=== PATIENT | male | born 1930 | race Caucasian/White ===

== ENCOUNTER 2016-09-01 06:06 | Day surgery (SDC) | payer MEDICARE, BC ==
[2016-09-01] VITALS (25 sets, daily range): BP systolic 104–143; BP diastolic 61–76; PULSE 68–90; RESP 15–23; Ht 170.2 cm; Wt 83.6 kg
[~2016-09-01] VITALS: Ht 170.2 cm; Wt 83.6 kg
[~2016-09-01 06:06] MED LIST: ALLO300T2 PO; AMIO100T4 PO; ASPI81TA3 PO; ATOR20TA38 PO; CLON-379 PO; CLOP75TA27 PO; ISOS30TA5 PO; LIDOCAINE 1% (MPF) 30 ML INJ INJ ONE; METO25TA7 PO; NEPH PO; PRIM50TA38 PO
[2016-09-01] MEDS ORDERED: BEN25 PO (07:05)
[2016-09-01] MEDS ORDERED: FURO40TA4 PO (07:05)
[2016-09-01] MEDS ORDERED: TRAM50TA2 PO (07:05)
[2016-09-01] MEDS ORDERED: LIDOCAINE 1% (MPF) 30 ML INJ ONE (07:45)
[2016-09-01] MEDS ORDERED: HEPARIN 1000 UNITS/ML 10 ML INJ ONE (07:45)
[2016-09-01] MEDS ORDERED: GELATIN SIZE 100 SPONGE ONE (07:45)
[2016-09-01] MEDS ORDERED: THROMBIN 5000 UNIT VIAL ONE (07:46)
--- NOTE | 2016-09-01 07:51 | HPN ---
Date/Time of Note Date/Time of Note DATE: 09/01/16 TIME: 07:51 Interval H&P Admission Note Pt. seen H&P reviewed: No system changes TERRANCE FLYNN MD Sep 01, 2016 07:51
[2016-09-01] MEDS ORDERED: PROPOFOL 20 ML ONE (07:56)
[2016-09-01] MEDS ORDERED: LIDOCAINE 2% (SDV) 5 ML INJ ONE (07:56)
[2016-09-01] MEDS ORDERED: VANCOMYCIN 1 GM (PMX) 250 ML IVPB SCH (08:00)
[2016-09-01] MEDS ORDERED: DIPHENHYDRAMINE 50 MG INJ IV PRN (08:30)
[2016-09-01] MEDS ORDERED: MEPERIDINE 25 MG INJ IV PRN (08:30)
[2016-09-01] MEDS ORDERED: MIDAZOLAM 1 MG/ML 2 ML INJ IV PRN (08:30)
[2016-09-01] MEDS ORDERED: HYDROmorphONE (0.2 MG/ML) 10ML SYG IV PRN ×2 (08:30)
[2016-09-01] MEDS ORDERED: METOCLOPRAMIDE 10 MG INJ IV PRN (08:30)
[2016-09-01] MEDS ORDERED: FENTAnyl 50 MCG/ML VIAL IV PRN ×2 (08:30)
[2016-09-01] MEDS ORDERED: ONDANSETRON 4 MG INJ IV PRN (08:30)
[2016-09-01] MEDS ORDERED: EPHEDrine SULFATE 50 MG/5 ML SYG ONE (08:56)
[2016-09-01] MEDS ORDERED: ROCURONIUM 50 MG INJ ONE (08:56)
[2016-09-01] MEDS ORDERED: THROMBIN 5000 UNIT VIAL TOP ONE (09:02)
[2016-09-01] MEDS ORDERED: GELATIN SIZE 100 SPONGE TOP ONE (09:02)
[2016-09-01] MEDS ORDERED: GLYCOPYRROLATE 0.4 MG INJ ONE (09:53)
[2016-09-01] MEDS ORDERED: NEOSTIGMINE 3 MG/3 ML SYRINGE ONE (09:53)
--- NOTE | 2016-09-01 10:08 | OPR ---
Date/Time of Note Date/Time of Note DATE: 09/01/16 TIME: 10:07 Operative Report Preoperative Diagnosis thrombosed left arm AVF Postoperative Diagnosis same Operation Performed revision / thrombectomy left arm AVF Surgeon: TERRANCE FLYNN MD Anesthesia: general Estimated Blood Loss: 50 - 100 ml's Complications: None Pt Condition Post Procedure: stable Disposition: PACU TERRANCE FLYNN MD Sep 01, 2016 10:08
--- NOTE | 2016-09-01 10:59 | OPR ---
DATE OF OPERATION: 09/01/2016 PREOPERATIVE DIAGNOSIS: Thrombosed left arm arteriovenous fistula. POSTOPERATIVE DIAGNOSIS: Thrombosed left arm arteriovenous fistula. PROCEDURE PERFORMED: Revision and thrombectomy of left arm AV fistula. SURGEON: Terrance Slater MD ANESTHESIA: LMA. ESTIMATED BLOOD LOSS: 50 mL. COMPLICATIONS: There are no intraprocedural complications. INDICATIONS: This is an 86-year-old man who has been on dialysis for several years. He had multipl e failed accesses in both arms and most recently had placed a left brachiocephalic AV fistula about a year ago. He had been working well until several weeks ago and started having problems with that and then it was very low flow. I brought him and did a fistulogram and showed that the cephalic vei n was opened from the elbow to the mid-upper arm and then it occluded, but reconstituted in the uppe r arm, there was a collateral coming off of the vein that was keeping the more distal portion open a nd that was coming back up and filling the very proximal cephalic vein. The mid portion of the vei n was completely thrombosed. I tried to pass catheters and wires through it, but I could not get th rough, it was very densely occluded and could not be reopened. So I brought him in today to revise the fistula. He has had multiple accesses in this arm previously. He has had brachiobasilic fistul a, graft and the brachiocephalic AV fistula was actually a third access. DESCRIPTION OF PROCEDURE: Patient brought to the operating room and placed on the table in the supi ne position. The left arm was prepped and draped in the usual sterile fashion. I used ultrasound t o identify the cephalic vein above the elbow that was patent and then the upper arm where came back and was opened going back into the chest. 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 We then after induction of general endotracheal anesthesia, the left arm was prepped and draped in the usual sterile fashion. I began by making a transverse incision across the fistula in the pat ent portion in sort of the distal upper part of the upper arm and dissected the fistula out very car efully there. There was a lot of dense adhesions from the previous access, but I was able to get ci rcumferentially around it and then did the same in the upper arm over this where the cephalic vein w as patent in the upper part of the left upper arm. Once I had both of those exposed, I clamped the fistula very proximally and then transected it after tying off the more distal portion with 0 silk t ie. I then pulled some clot out of the patent portion of the graft. There was some thrombus in it and I pulled that out using just the forceps, I then did the same thing in the upper arm, the cephal ic vein in the upper arm was patent. I passed a 4 [address] all the way up into the central veins and did not have any resistance anywhere and there was good backflow so I then took a 5 mm Artegraft . I tunneled between the 2 incisions sort of out over the biceps laterally in the arm and then anas tomosed the Artegraft first to the vein up in the upper arm. I cut them both obliquely and then anu stomosed the end of the vein to the side of the graft using 6-0 Prolene suture in a running standard vascular surgical fashion. I flushed it. It flushed quite easily. There was good flow through it . I then went and did the arterial anastomosis. I again cut the fistula. It was quite large at th is point and I cut it obliquely and cut the graft obliquely and anastomosed the 2 ends together agai n using 6-0 Prolene suture in a running standard vascular surgical fashion. I removed the clamps. There was sort of a pulsatile thrill but good hemostasis. The graft was clearly patent and had good flow. I then closed the skin incisions in 2 layers using an inner layer of 3-0 Vicryl and an outer layer of surgical shazia. Sterile dressings were applied and I applied Joni wraps to keep the mac a down as he has had swelling in the past when we have done procedures. I am going to see him back in the office in 2 weeks. He was transferred to the recovery room in stable condition. Dictated By: TERRANCE ORDONEZ/DARLENE Conf#: [id number] DID#: [id number] CC: BENITO PEREZ MD; DEMARCUS CHING MD;*EndCC*
== END 2016-09-01 13:50 | disposition home or self-care (01) ==
LOC: SDS 06:06
PROVIDERS: ATTEND Surgery Vascular Surgery
DX: T82.868A Thrombosis due to vascular prosthetic devices, implants and grafts, initial encounter (principal); Y84.1 Kidney dialysis as the cause of abnormal reaction of the patient, or of later complication, without mention of misadventure at the time of the procedure; Y92.89 Other specified places as the place of occurrence of the external cause; I12.0 Hypertensive chronic kidney disease with stage 5 chronic kidney disease or end stage renal disease; N18.6 End stage renal disease; I25.10 Atherosclerotic heart disease of native coronary artery without angina pectoris; E78.5 Hyperlipidemia, unspecified; Z98.61 Coronary angioplasty status; Z95.1 Presence of aortocoronary bypass graft
CPT/HCPCS: 36833; 84132; C1725; C1768; J1644; J2250; J3010; J3370; J2710

== ENCOUNTER 2017-10-11 00:56 | Emergency (ER) | END 2017-10-11 03:10 | disposition home or self-care (01) ==

== ENCOUNTER 2017-11-21 21:06 | Emergency (ER) | END 2017-11-22 00:39 | disposition home or self-care (01) ==

== ENCOUNTER 2018-06-06 06:08 | Inpatient (IN) | payer MEDICARE, BC ==
[~2018-06-06] VITALS: Ht 160 cm; Wt 73.0 kg
[2018-06-06] VITALS (7 sets, daily range): BP systolic 108–133; BP diastolic 54–64; PULSE 61–89; RESP 18–32; Ht 160 cm; Wt 73.0 kg
[~2018-06-06 06:08] MED LIST changes: -AMIO100T4 PO; +ASPI-831 PO; -ASPI81TA3 PO; +BEN25 PO; +CALC667C PO; +FURO40TA4 PO; -ISOS30TA5 PO; +ISOS30TA67 PO; -LIDOCAINE 1% (MPF) 30 ML INJ INJ ONE; +METO-335 PO; -METO25TA7 PO; +TRAM50TA2 PO
--- NOTE | 2018-06-06 06:17 | ERD ---
ER Documentation Chief Complaint Chief Complaint BACK PAIN S/P FALL IN BATHROOM HPI 85-year-old male with a history of hypertension, CVA, coronary artery disease status post CABG, CHF, ischemic cardiomyopathy, EF 25-30%, end-stage renal disease on dialysis and basal skin cancer brought to the ED via rescue ambulance complaining of low back pain after a fall in the bathroom. Patient reports he was getting off the toilet and slipped and fell to the ground. He denies head injury or loss of consciousness. No chest pain, palpitations or shortness of breath. Denies abdominal pain nausea or vomiting. He was unable to stand up by himself and found him after approximately an hour and called paramedics. Patient complains of moderate, sharp and achy, nonradiating low back pain exacerbated by movement. Denies fevers or chills. Scheduled for dialysis today. ROS All systems reviewed and are negative except as per history of present illness. Medications Home Meds Reported Medications Calcium Carbonate ([id number]) 500 Mg Tablet, 500 MG PO BID, TAB 06/06/18 Acetaminophen* (Acetaminophen*) 500 MG Extra Strength Tablet, 500 MG PO Q4H PRN for PAIN AND OR ELEVATED TEMP, TAB 06/06/18 Tramadol Hcl* (Ultram*) 50 Mg Tablet, 50 MG PO Q6H PRN for PAIN, TAB 06/06/18 Diphenhydramine Hcl* (Benadryl*) 25 Mg Cap, 25 MG PO QHS PRN for ITCHING, CAP 06/06/18 Primidone* (Mysoline*) 50 Mg Tablet, 25 MG PO HS, TAB 06/06/18 Clonidine Hcl* (Clonidine Hcl*) 0.1 Mg Tab, 0.1 MG PO BID, TAB 06/06/18 Metoprolol Tartrate* (Lopressor*) 25 Mg Tablet, 25 MG PO BID, #60 TAB 06/06/18 Atorvastatin Calcium* (Atorvastatin Calcium*) 20 Mg Tablet, 20 MG PO QHS, #30 TAB 06/06/18 Isosorbide Mononitrate* (Isosorbide Mononitrate*) 120 Mg Tab.sr.24h, 120 MG PO DAILY, TAB.SA 06/06/18 Clopidogrel Bisulfate (Clopidogrel) 75 Mg Tablet, 75 MG PO DAILY, #30 TAB 06/06/18 Allopurinol* (Allopurinol*) 300 Mg Tablet, 300 MG PO DAILY, TAB 06/06/18 Aspirin* (Aspirin* Chew) 81 Mg Tab.chew, 81 MG PO DAILY, TAB.CHEW 06/06/18 Furosemide* (Furosemide*) 40 Mg Tablet, 40 MG PO DAILY, TAB 06/06/18 Digoxin* (Digox*) 125 Mcg Tablet, 0.0625 MG PO DAILY, TAB 06/06/18 Allergies Allergies: Coded Allergies: Penicillins (Unverified Allergy, Severe, ANAPHYLACTIC, 06/06/18) PMhx/Soc Reviewed in chart. As per HPI. 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 Pulse: 98. Respirations: 18. Blood pressure 143/90. O2 saturation 100% Physical Exam Const: No acute distress Head: Atraumatic Eyes: Normal Conjunctiva ENT: Normal External Ears, Nose and Mouth. Neck: Full range of motion. No meningismus. Resp: Clear to auscultation bilaterally Cardio: Regular rate and rhythm, no murmurs Abd: Soft, non tender, non distended. Normal bowel sounds Skin: No petechiae or rashes Back: No midline or flank tenderness Ext: No cyanosis, or edema Neur: Awake and alert Psych: Normal Mood and Affect Result Diagram: 06/19/1852306/19/18523 Results 24 hrs Laboratory Tests Test 06/06/18 05:30 06/06/18 07:04 06/06/18 07:05 06/06/18 08:11 Urine Color PAM Urine Clarity CLOUDY Urine pH 5.0 Urine Specific 1.020 [place] Urine Ketones NEGATIVE mg/dL Urine Nitrite NEGATIVE mg/dL Urine Bilirubin NEGATIVE mg/dL Urine NEGATIVE mg/dL Urobilinogen Urine Leukocyte NEGATIVE Dionne/ul Esterase Urine 64 /HPF Microscopic RBC Urine 14 /HPF Microscopic WBC Urine 2+ mg/dL Hemoglobin Urine Glucose NEGATIVE mg/dL Urine Total 3+ mg/dl Protein White Blood 21.5 10^3/ul Count Red Blood Count 4.06 10^6/ul Hemoglobin 11.9 g/dl Hematocrit 38.1 % Mean 93.8 fl Corpuscular Volume Mean 29.3 pg Corpuscular Hemoglobin Mean 31.2 g/dl Corpuscular Hemoglobin Conc ent Red Cell 13.9 % Distribution Width Platelet Count 358 10^3/UL Mean Platelet 10.4 fl Volume Immature 0.800 % Granulocytes % Neutrophils % 90.0 % Lymphocytes % 2.1 % Monocytes % 6.5 % Eosinophils % 0.3 % Basophils % 0.3 % Nucleated Red 0.0 /100WBC Blood Cells % Immature 0.180 10^3/ul Granulocytes # Neutrophils # 19.3 10^3/ul Lymphocytes # 0.5 10^3/ul Monocytes # 1.4 10^3/ul Eosinophils # 0.1 10^3/ul Basophils # 0.1 10^3/ul Nucleated Red 0.0 10^3/ul Blood Cells # Sodium Level 145 mmol/L Potassium Level 6.1 mmol/L Chloride Level 99 mmol/L Carbon Dioxide 22 mmol/L Level Anion Gap 24 Blood Urea 75 mg/dl Nitrogen Creatinine 8.34 mg/dl Est Glomerular mL/min Filtrat Rate mL/min Glucose Level 123 mg/dl Calcium Level 9.9 mg/dl Prothrombin 14.1 Sec Time Prothrombin 1.1 Time Ratio INR 1.08 International Normalized Rati o Activated 32.6 Sec Partial Thrombo plast Time Troponin I 0.374 ng/ml POC Venous 4.0 mmol/L Lactate Test 06/06/18 08:12 Bedside Glucose 108 mg/dL Current Medications Medications Dose Sig/Carmelita Start Time Status Last (Trade) Ordered Route PRN Stop Time Admin Dose Reason Admin 650 mg ONCE ONCE 06/06/18 DC 06/06/18 Acetaminophen PO 07:30 07:19 (Tylenol 06/06/18 Tab) 07:50 Insulin 10 unit ONCE STAT 06/06/18 DC 06/06/18 Human IVP 07:52 08:18 Regular 06/06/18 (Humulin R) 07:56 Albuterol 15 mg ONCE STAT 06/06/18 DC 06/06/18 (Proventil INH 07:52 08:46 0.5% (Neb)) 06/06/18 07:56 Dextrose ONCE PRN 06/06/18 DC 06/06/18 (D50w IV DECREASED 08:00 06/17/18 08:18 Syringe) GLUCOSE 17:34 Vancomycin 250 ml @ ONCE STAT 06/06/18 DC 06/06/18 HCl 125 mls/hr IVPB 08:24 10:15 06/06/18 10:23 150 ml @ ONCE STAT 06/06/18 DC 06/06/18 Levofloxacin/ 100 mls/hr IVPB 08:24 08:50 Dextrose 06/06/18 09:53 Procedures/MDM DOCUMENTS REVIEWED: ED nurse, prior ED, prior records EKG: Time: 36. Sinus rhythm. Right bundle branch block. Q waves in V1 through V3. ST segment depressions in the inferior lateral leads. No acute ST elevation. My Interpretation IMAGING: PROCEDURE: XR Chest. CLINICAL INDICATION: Chest pain TECHNIQUE: A single AP view of the chest was obtained. COMPARISON: CR CHEST 02/23/2016; CR CHEST 11/22/2015; CR CHEST 11/21/2015; CR CHEST 06/19/2013 FINDINGS: There are small bilateral pleural effusions with bilateral basilar interstitial opacities. No pneumothorax is seen. The cardiomediastinal silhouette is mildly enlarged. Calcifications are seen within the aortic arch. There are post cardiac surgery changes with sternotomy wires. The osseous structures demonstrate senescent changes. IMPRESSION: 1. Bilateral basilar interstitial opacities may reflect edema or multifocal pneumonia. 2. Small bilateral pleural effusions. 3. Mild cardiomegaly and aortic atherosclerosis. RPTAT: .Consuelo Alves MD, MD Date Time Electronically viewed and signed by .Consuelo Alves MD, MD on 06/06/2018 07:10 PROCEDURE: XR Lumbar Spine. CLINICAL INDICATION: Status post fall. TECHNIQUE: AP and lateral views of the lumbar spine were obtained. COMPARISON: None FINDINGS: The vertebral body heights are maintained. There is no significant spondylolisthesis. There is multilevel disc space narrowing. There is multilevel ventral osteophytosis. There is multilevel facet arthrosis. There are a therosclerotic changes of the aorta. IMPRESSION: Degenerative changes of the lumbar spine, as described above. RPTAT: HAP Ryan-r Eamon, Physician Date Time Electronically viewed and signed by Naheed Knutson Physician on 06/06/2018 08:01 AP/ PROCEDURE: CT Brain without contrast. CLINICAL INDICATION: Status post fall TECHNIQUE: Noncontrast axial sections were obtained from the skull base to the vertex without IV contrast. Multiplanar reformatted images were constructed. The CTDIvol is 80 mGy and the DLP is 714 mGycm. DICOM images are available. One or more of the following dose reduction techniques were utilized: 1.) Automated exposure control 2.) Adjustment of the mA +/- kV according to patient's size 3.) Use of iterative reconstruction technique. COMPARISON: CT BRAIN 11/25/2014 FINDINGS: There is no hydrocephalus, midline shift or evidence for acute intracranial hemorrhage. There is no definite CT evidence for large acute vascular distribution infarct. The basilar cisterns are patent. There is no sulcal effacement. No extra-axial collections are seen. There is age-related involutional change. There is scattered chronic microvascular ischemic change. There is a stable chronic left frontal lobe infarct. There is atherosclerotic intracranial calcification. The visualized paranasal sinuses and mastoid air cells are clear. There is mild left frontal scalp soft tissue swelling. There are no depressed calvarial fractures identified. IMPRESSION: No acute intracranial hemorrhage or depressed calvarial fracture identified. Stable chronic left frontal lobe infarct. Involutional and mild chronic microvascular ischemic change has overall slightly progressed. RPTAT: HAP it-r Eamon, Physician Date Time Electronically viewed and signed by Naheed Knutson Physician on 06/06/2018 08:12 MEDICAL DECISION MAKIN-year-old male with a history of hypertension, CVA, coronary artery disease status post CABG, CHF, ischemic cardiomyopathy, EF 25-3 0%, end-stage renal disease on dialysis and basal skin cancer brought to the ED via rescue ambulance complaining of low back pain after a fall in the bathroom. CBC significant for leukocytosis and mild anemia. Chemistry reveals hyponatremia, hyperkalemia and elevated BUN/creatinine consistent with prior results but no acidosis. [id number]-tlfa lactate is 4.0 mmol/L. EKG reveals sinus rhythm with inferior lateral ST depressions. Troponin is elevated. chest x-ray to evaluate for pneumothorax, pneumonia and pulmonary edema shows bilateral interstitial infiltrates consistent with either pneumonia or edema and small bilateral pleural effusions. CT of the brain performed to evaluate for subdural/epidural hematoma, mass or ischemia reveals microvascular ischemic changes and an old left frontal infarct no extra-axial fluid collections or mass-effect. Imaging of the lumbar spine to evaluate for fracture and subluxation reveals degenerative disease. Hyperkalemia treated aggressively with nebulized albuterol, D50 and insulin the patient will require emergent dialysis. Criteria for systemic inflammatory response syndrome include tachycardia and leukocytosis. Elevated lactate consistent with severe sepsis although no infectious etiology is definitively identified. Possible pneumonia although considering the patient's history chest x-ray findings are more likely secondary to volume overload. Fluid bolus is not given due to the patient's history of renal failure as he is already exhibiting signs of volume overload. Antibiotics given after cultures. No hypotension or septic shock. Elevated troponin consistent with non-ST elevation myocardial infarction in this patient with significant prior coronary artery disease. Admit to telemetry for further evaluation and management. CRITICAL CARE TIME: Due to the high probability of sudden clinically significant cardiovascular, hemodynamic and metabolic deterioration, this patient with end- stage renal disease on dialysis who presents after a fall with hyperkalemia, criteria for systemic inflammatory response syndrome and elevated lactate consistent with severe sepsis required multiple, frequent reevaluations of vital signs and response to therapy. Additional critical care time was spent in interpretation of relevant clinical data, extensive review of prior medical records and consultation with nephrology Dr. Davalos the admitting physician Dr. Merritt. TOTAL CRITICAL CARE TIME: 35 minutes not including other separately reportable procedures. CALLS/CONSULTS: Time: 826, Dr. Merritt for Dr Panda. CALLS/CONSULTS: Time: 827, Dr Davalos for Dr. Tomlin. PATIENT CARE TRANSITIONED: Time: 843, Dr. Merritt. Counseled patient and family regarding diagnosis, diagnostic results and plan for admission. Departure Diagnosis: Primary Impression: Hyperkalemia Additional Impressions: Non-ST elevation myocardial infarction (NSTEMI) Systemic inflammatory response syndrome Elevated lactic acid level End stage renal disease on dialysis Fall with no significant injury Encounter type: initial encounter Qualified Codes: W19.XXXA - Unspecified fall, initial encounter Acute lumbar myofascial strain Encounter type: initial encounter Qualified Codes: S39.012A - Strain of muscle, fascia and tendon of lower back, initial encounter History of coronary artery bypass graft Condition: Serious EMILI WHITE MD Jun 06, 2018 06:17
[2018-06-06] MEDS ORDERED: ACETAMINOPHEN 325 MG TAB PO ONE (07:30)
[2018-06-06] MEDS ORDERED: ALBUTEROL 0.5% (NEB) 2.5 MG/0.5 ML AMP INH STA (07:52)
[2018-06-06] MEDS ORDERED: INSULIN REGULAR, HUMAN 100 UNIT/1 ML 3ML VIAL IVP STA (07:52)
[2018-06-06] MEDS ORDERED: DEXTROSE 50% 50 ML SYRINGE IV PRN (08:00)
[2018-06-06] MEDS ORDERED: DIGO125T19 PO (08:19)
[2018-06-06] MEDS ORDERED: ALLO300T2 PO (08:20)
[2018-06-06] MEDS ORDERED: ASPI-903 PO (08:20)
[2018-06-06] MEDS ORDERED: FURO40TA4 PO (08:20)
[2018-06-06] MEDS ORDERED: ISOS120T15 PO (08:21)
[2018-06-06] MEDS ORDERED: CLOP75TA27 PO (08:21)
[2018-06-06] MEDS ORDERED: ATOR20TA38 PO (08:21)
[2018-06-06] MEDS ORDERED: CLON-379 PO (08:22)
[2018-06-06] MEDS ORDERED: METO25TA4 PO (08:22)
[2018-06-06] MEDS ORDERED: PRIM50TA38 PO (08:23)
[2018-06-06] MEDS ORDERED: LEVOFLOXACIN 750MG/D5W (PMX) 150 ML IVPB STA (08:24)
[2018-06-06] MEDS ORDERED: VANCOMYCIN 1 GM (PMX) 250 ML IVPB STA (08:24)
[2018-06-06] MEDS ORDERED: BEN25 PO (08:24)
[2018-06-06] MEDS ORDERED: TRAM50TA PO (08:25)
[2018-06-06] MEDS ORDERED: ACET-141 PO (08:26)
[2018-06-06] MEDS ORDERED: CALC500T91 PO (08:26)
[2018-06-06] MEDS ORDERED: ACETAMINOPHEN 325 MG TAB PO PRN (09:00)
[2018-06-06] MEDS ORDERED: ONDANSETRON 4 MG INJ IV PRN (09:00)
[2018-06-06] MEDS ORDERED: ASPIRIN 325 MG TAB PO ONE (09:00)
[2018-06-06] MEDS ORDERED: FENTAnyl 50 MCG/ML VIAL IV ONE (10:30)
[2018-06-06] MEDS ORDERED: ACETAMINOPHEN 500 MG TAB PO PRN (11:00)
[2018-06-06] MEDS: ISOSORBIDE MONONITRATE(SR)60 MG TAB PO SCH (11:00)
[2018-06-06] MEDS: METOPROLOL 25 MG TAB PO SCH ×2 (11:00→20:30)
[2018-06-06] MEDS: traMADol 50 MG TAB PO PRN (11:25)
[2018-06-06] MEDS: ASPIRIN 81 MG TAB PO SCH (11:26)
[2018-06-06] MEDS: CLOPIDOGREL 75 MG TAB PO SCH (11:27)
--- NOTE | 2018-06-06 12:03 | CONS ---
DATE OF ADMISSION: 06/06/2018 DATE OF CONSULTATION: 06/06/2018 REQUESTING PHYSICIAN: Enrique Merritt MD Thank you very much for allowing me to evaluate this 88-year-old male with chronic renal failure who is now being evaluated in the ER after an inadvertent fall earlier today. HISTORICAL EVENTS: As you well know, this patient does undergo regular dialysis 3 times per week and is being followed by my associate, Dr. Quick. In any event, it was early this morning when he was sitting on the commode having both the need to have a bowel movement and urinate that he seemed t o slide off the commode and fell on the floor without loss of consciousness. He states he was too we ak to get up and remained on the floor for at least 2 hours. He states he did "not pass out." He de nied antecedent shortness of breath, chest pain, palpitations, nausea, vomiting. He is presently kb sonably comfortable in the ER, except for back pain. PAST MEDICAL HISTORY: Includes: 1. Hypertension. 2. Prior stroke. 3. Known coronary artery disease, undergoing prior coronary artery bypass surgery. 4. History of congestive heart failure and related cardiomyopathy. 5. History of skin cancer. 6. Prostate surgery. 7. Hernia surgery. 8. Tonsillectomy. MEDICATIONS AT HOME: Include: 1. Os-Sergio 500 b.i.d. 2. Tylenol p.r.n. 3. Tramadol 50 mg q.6h. 4. Mysoline 50 mg at night. 5. Clonidine 0.1 b.i.d. 6. Metoprolol 25 mg per day. 7. Atorvastatin 20 mg per day. 8. Isosorbide 120 mg per day. 9. Plavix 75 mg per day. 10. Allopurinol 300 mg per day. 11. Aspirin 81 mg per day. 12. Lasix 40 mg per day. 13. Digoxin 125 mcg per day. PHYSICAL EXAMINATION: GENERAL: Chronically ill male, no acute distress. VITAL SIGNS: BP 107/59, pulse was 88, respirations were 18. He was afebrile. EYES: Extraocular muscles were full. NOSE, MOUTH, AND THROAT: Normal. NECK: Supple without jugular venous distention, thyroid enlargement or adenopathy. LUNGS: Reduced breath sounds. HEART: Rhythm regular, heart tones were diminished. No murmur. ABDOMEN: Nontender. Liver and spleen were not palpable. No mass or tenderness were noted. EXTREMITIES: No edema, no calf tenderness. NEUROLOGIC: No lateralizing motor weakness. MENTAL STATUS: Oriented to recent events. LABORATORY AND DIAGNOSTIC STUDIES: Electrolytes: Sodium 145, potassium 6.1, chloride 99, CO2 22, BUN 75, creatinine 8.34. Troponin was 0.374, lactate was 4. Protime and PTT were normal. Urinalysis r ed cells and white cells were present, white count 21,500, hematocrit 38.1, platelet count 358,000. Imaging included a brain CT: No acute abnormalities noted. There was a chronic left frontal stable infarct with microvascular changes. Lumbar spine degenerative changes, no fracture noted and a chest x-ray bilateral basal interstitial opacities, small bilateral effusions and cardiomegaly. IMPRESSION: 1. Inadvertent fall without loss of consciousness related to generalized muscular weakness. Doubt c ardiac events. 2. Chronic renal failure, now with an elevated potassium. I have already ordered dialysis promptly today. 3. Hypertension. Meds to be resumed and BP carefully monitored. PLAN: Will follow with you. Dictated By: JANETH SHEPARD MD MR/NTS Conf#: [id number] DID#: [id number] CC: ENRIQUE MERRITT MD;*End*
[2018-06-06] MEDS ORDERED: VANCOMYCIN IV PER PHARMACY XX SCH (13:30)
--- NOTE | 2018-06-06 13:42 | HP ---
Date/Time of Note Date/Time of Note DATE: 06/06/18 TIME: 13:24 Assessment/Plan VTE Prophylaxis SCD applied (from Nsg): Yes Pharmacological prophylaxis: heparin Lines/Catheters IV Catheter Type (from Nrsg): Saline Lock Assessment/Plan Problems: (1) Fall with no significant injury Status: Acute Comment: No significant back pain after the fall. In addition he has elevated lactic acid level. Pending is a urine culture although is being treated with antibiotics as a precaution. In the meantime get a go ahead and give him a muscle relaxant and low-dose Celebrex. Physical therapy work with him will try and get him mobilized and moving. In terms of home setting he will need to have an adjustment to the toilet device at home so is elevated so he is at less risk of falling Qualifiers: Encounter type: initial encounter Qualified Codes: W19.XXXA - Unspecified fall, initial encounter (2) Elevated lactic acid level Status: Acute Comment: Follow this carefully, watch for signs of infection (3) End stage renal disease on dialysis Status: Chronic Comment: Nephrology is involved we will get him his dialysis today which she is due for especially given the hyperkalemia (4) Hypertension Status: Chronic Comment: Continue with antihypertensive treatment. Qualifiers: Hypertension type: essential hypertension Qualified Codes: I10 - Essential (primary) hypertension (5) Hyperlipidemia Status: Chronic Comment: Continue with statin therapy Qualifiers: Hyperlipidemia type: pure hypercholesterolemia Qualified Codes: E78.00 - Pure hypercholesterolemia, unspecified (6) CAD (coronary artery disease) Status: Chronic Comment: Fortunately quiescent at this time Qualifiers: Coronary Disease-Associated Artery/Lesion type: [place] artery [place] vs. transplanted heart: inupiat heart Associated angina: without angina Qualified Codes: I25.10 - Atherosclerotic heart disease of in[place] coronary artery without angina pectoris (7) Systolic CHF with reduced left ventricular function, NYHA class 3 Status: Chronic Comment: Continue with appropriate treatment both for volume and beta-blockade and afterload reduction (8) Peripheral vascular disease Status: Chronic Comment: Noted and stable (9) Paroxysmal atrial fibrillation Status: Chronic Comment: Currently in sinus rhythm (10) Prostatic hypertrophy Status: Chronic Comment: Status post prostatectomy without symptoms (11) Cerebrovascular disease Status: Chronic Comment: Remote history of TIA. Fortunately quiescent (12) Tremor Status: Chronic Comment: Continue with primidone and beta-blockade (13) Hyperuricemia Status: Chronic Comment: Continue with allopurinol therapy Result Diagram: 06/06/18 0704 06/06/18 1103 Results 24hrs Laboratory Tests Test 06/06/18 05:30 06/06/18 07:04 06/06/18 07:05 06/06/18 08:11 Urine Color PAM Urine Clarity CLOUDY A Urine pH 5.0 Urine Specific 1.020 [place] Urine Ketones NEGATIVE Urine Nitrite NEGATIVE Urine Bilirubin NEGATIVE Urine NEGATIVE Urobilinogen Urine Leukocyte NEGATIVE Esterase Urine 64 H Microscopic RBC Urine 14 H Microscopic WBC Urine Hemoglobin 2+ H Urine Glucose NEGATIVE Urine Total 3+ H Protein White Blood 21.5 #H Count Red Blood Count 4.06 L Hemoglobin 11.9 L Hematocrit 38.1 L Mean Corpuscular 93.8 Volume Mean Corpuscular 29.3 Hemoglobin Mean Corpuscular 31.2 L Hemoglobin [place] nt Red Cell 13.9 # Distribution Width Platelet Count 358 Mean Platelet 10.4 # Volume Immature 0.800 H Granulocytes % Neutrophils % 90.0 H Lymphocytes % 2.1 L Monocytes % 6.5 Eosinophils % 0.3 Basophils % 0.3 Nucleated Red 0.0 Blood Cells % Immature 0.180 H Granulocytes # Neutrophils # 19.3 H Lymphocytes # 0.5 L Monocytes # 1.4 H Eosinophils # 0.1 Basophils # 0.1 Nucleated Red 0.0 Blood Cells # Sodium Level 145 H Potassium Level 6.1 *H Chloride Level 99 Carbon Dioxide 22 Level Anion Gap 24 H Blood Urea 75 H Nitrogen Creatinine 8.34 H Est Glomerular Filtrat Rate mL/min Glucose Level 123 Calcium Level 9.9 Prothrombin Time 14.1 Prothrombin Time 1.1 Ratio INR 1.08 International Normalized Ratio Activated 32.6 Partial Thrombop last Time Troponin I 0.374 *H POC Venous 4.0 *H Lactate Test 06/06/18 08:12 06/06/18 11:03 Bedside Glucose 108 Potassium Level 5.1 Lactic Acid 7.1 *H Level Creatine Kinase 430 H Digoxin Level 0.6 L HPI/ROS Admit Date/Time Admit Date/Time Jun 06, 2018 at 08:52 Hx of Present Illness 88-year-old male who still lives at home but has some assistance. He had gone to the bathroom both for stool and urination. He reports he was trying to get off of the toilet and slid and actually got himself trapped between the toilet in the bathtub. He did not have head trauma he did not have loss of consciousness. He did not have chest pain or palpitations. He was stuck in that position for minimum of 2 hours before finally requesting external help. By that point time is back to become so painful that he was no longer able to manage himself and was brought to the emergency room and admitted. He has not had any fevers chills or sweats he denies any dysuria pyuria or hematuria. He denies any cough wheezing asthma shortness of breath. These note he has multiple advanced medical issues ROS Constitutional: no complaints (Denies fevers chills or sweats) Eyes: no complaints (Eyes any change in vision) ENT: no complaints Respiratory: no complaints (Denies cough wheezing shortness of breath) Cardiovascular: no complaints (Denies chest pain palpitations PND or orthopnea) Gastrointestinal: no complaints Genitourinary: no complaints (Denies dysuria or hematuria) Musculoskeletal: back pain (Planes of the recent onset of severe back pain after being stuck in an awkward position) Skin: no complaints Neurologic: no complaints Endocrine: no complaints (Please note he does not have a history of diabetes) Lymphatic: no complaints Psychological: anxiety PMH/Family/Social Past Medical History Medical History: congestive heart failure ([place] [employer] stage IV), coronary artery disease (Status post PCI with interventions prior to CABG in 2012), high cholesterol, hypertension, renal disease (End-stage renal disease nonoliguric on hemodialysis 3 days a week), other (Hyperuricemia; essential tremor; osteoarthritis;) Medications Current Medications Dextrose (D50w Syringe) ONCE PRN IV DECREASED GLUCOSE Last administered on 06/06/18at 08:18; Admin Dose 50 ML; Start 06/06/18 at 08:00 Ondansetron HCl (Zofran Inj) 4 mg ER BRIDGE PRN IV NAUSEA AND/OR VOMITING; Start 06/06/18 at 09:00; Stop 06/07/18 at 08:59 Acetaminophen (Tylenol Tab) 500 mg Q4H PRN PO MILD PAIN(1-3)OR ELEVATED TEMP; Start 06/06/18 at 11:00 Allopurinol (Zyloprim) 300 mg DAILY PO ; Start 06/07/18 at 09:00 Aspirin (Aspirin) 81 mg DAILY PO Last administered on 06/06/18at 11:26; Admin Dose 81 MG; Start 06/06/18 at 11:00 Atorvastatin Calcium (Lipitor) 20 mg QHS PO ; Start 06/06/18 at 21:00 Calcium Carbonate (Oyster Shell Calcium) 0.5 gm BID PO ; Start 06/06/18 at 21:00 Clonidine (Catapres) 0.1 mg BID PO ; Start 06/06/18 at 11:00 Clopidogrel Bisulfate (plaVIX) 75 mg DAILY PO Last administered on 06/06/18at 11:27; Admin Dose 75 MG; Start 06/06/18 at 11:00 Isosorbide Mononitrate (Imdur) 120 mg DAILY PO ; Start 06/06/18 at 11:00 Metoprolol Tartrate (Lopressor) 25 mg BID PO ; Start 06/06/18 at 11:00 Primidone (Mysoline) 25 mg HS PO ; Start 06/06/18 at 21:00 Tramadol HCl (Ultram) 50 mg Q6H PRN PO PAIN Last administered on 06/06/18at 11:25; Admin Dose 50 MG; Start 06/06/18 at 11:00 Coded Allergies: Penicillins (Unverified Allergy, Severe, ANAPHYLACTIC, 06/06/18) Past Surgical History Past Surgical Hx: coronary bypass surgery, other (Construction of AV fistula bilateral upper extremities;) Family History Significant Family History: heart disease, hypertension Social History Alcohol Use: none Smoking Status: Former smoker Drug Use: none Exam/Review of Systems Vital Signs Vitals Vital Signs Date Temp Pulse Resp B/P (MAP) Pulse Ox O2 O2 Flow FiO2 Time Delivery Rate 06/06/18 89 12:47 06/06/18 98.6 32 108/54 94 11:03 (72) 06/06/18 Nasal 10:06 Cannula 06/06/18 2.0 08:47 Exam Constitutional: alert, oriented Head: other (Abrasion left anterior scalp) Eyes: nl conjunctiva, EOMI, nl lids, nl sclera, PERRL Neck: supple, non-tender Respiratory: clear to auscultation, normal air movement Cardiovascular: regular rate and rhythm, nl pulses Gastrointestinal: soft, nl liver, spleen, non-tender Musculoskeletal: nl extremities to inspection, other (Nonambulatory at present) RUTH VAZQUEZ MD Jun 06, 2018 13:39
[2018-06-06] MEDS: HYDROCODONE/APAP (5/325) TAB PO PRN ×2 (13:54→19:28)
[2018-06-06] MEDS: CELECOXIB 100 MG CAP PO SCH ×2 (13:54→20:29)
[2018-06-06] MEDS ORDERED: NACL 0.9% 3 ML SYG IV SCH (14:00)
[2018-06-06] MEDS ORDERED: VANCOMYCIN 500 MG (PMX) 100 ML IVPB SCH (18:00)
[2018-06-06] MEDS: ATORVASTATIN 20 MG TAB PO SCH (20:29)
[2018-06-06] MEDS: TIZANIDINE 2 MG TAB PO SCH (20:29)
[2018-06-06] MEDS: PRIMIDONE 50 MG TAB PO SCH (20:30)
[2018-06-06] MEDS: FAMOTIDINE 20 MG TAB PO SCH (20:30)
[2018-06-06] MEDS: CALCIUM CARBONATE 1.25 GM TAB PO SCH (20:30)
[2018-06-07] VITALS (26 sets, daily range): BP systolic 94–143; BP diastolic 45–70; PULSE 52–68; RESP 18
[2018-06-07] MEDS: HYDROCODONE/APAP (5/325) TAB PO PRN ×3 (03:20→20:31)
[2018-06-07] MEDS: traMADol 50 MG TAB PO PRN ×2 (06:02→18:07)
[2018-06-07] MEDS: METOPROLOL 25 MG TAB PO SCH ×2 (09:00→20:35)
--- NOTE | 2018-06-07 10:36 | CONS ---
Date/Time of Note Date/Time of Note DATE: 06/07/18 TIME: 10:32 Assessment/Plan Assessment/Plan Assessment/Plan 1. CKD, now being dialyzed...NoteHD was ordered yesterday, this was not done, nursing on floor by hx called acute service at least twice and was told dialysis team was aware-->hence->>HD was started this am with markedly elevated potassium 2. BP is controlled 3. Back pain is better 4. Known coronary dz, without chf 5. Markedly elevated K likely from muscle trauma, will obtain post dialysis K Result Diagram: 06/07/1851106/07/18511 Results 24hrs Laboratory Tests Test 06/06/18 11:02 06/06/18 11:03 06/07/18 05:12 06/07/18 07:58 Troponin I 4.910 *H Potassium Level 5.1 8.6 #*H Lactic Acid 7.1 *H 1.5 Level Creatine Kinase 430 H Digoxin Level 0.6 L White Blood 17.6 H Count Red Blood Count 3.48 L Hemoglobin 10.3 L Hematocrit 32.5 L Mean Corpuscular 93.4 Volume Mean Corpuscular 29.6 Hemoglobin Mean Corpuscular 31.7 L Hemoglobin [place] nt Red Cell 14.0 Distribution Width Platelet Count 256 # Mean Platelet 10.8 H Volume Immature 1.000 H Granulocytes % Neutrophils % 91.1 H Lymphocytes % 2.8 L Monocytes % 4.5 Eosinophils % 0.3 Basophils % 0.3 Nucleated Red 0.0 Blood Cells % Immature 0.170 H Granulocytes # Neutrophils # 16.1 H Lymphocytes # 0.5 L Monocytes # 0.8 Eosinophils # 0.1 Basophils # 0.1 Nucleated Red 0.0 Blood Cells # Erythrocyte 28 H Sedimentation Rate Sodium Level 138 Chloride Level 99 Carbon Dioxide 27 Level Anion Gap 12 # Blood Urea 95 H Nitrogen Creatinine 8.97 H Est Glomerular Filtrat Rate mL/min Glucose Level 107 Calcium Level 9.0 Phosphorus Level 4.4 Magnesium Level 2.4 Iron Level 50 Total Iron 214 L Binding Capacity Percent Iron 23 Saturation Ferritin 1470.0 H Total Bilirubin 0.2 Direct Bilirubin 0.00 Indirect 0.2 Bilirubin Aspartate Amino 72 H Transf (AST/SGOT ) Alanine 26 Aminotransferase (ALT/SGPT) Alkaline 170 H Phosphatase Total Protein 6.2 Albumin 3.7 Globulin 2.50 Albumin/Globulin 1.48 Ratio Hepatitis B NEGATIVE Surface Antigen Consultation Date/Type/Reason Admit Date/Time Jun 06, 2018 at 08:52 Initial Consult Date Detailed Summary Respiratory: No cough Cardiovascular: No chest pain, No orthopenea Gastrointestinal: no complaints Genitourinary: other (he noted blood in his urine after morris was placed) Musculoskeletal: back pain (mild-mod) Exam/Review of Systems Vital Signs Vitals Vital Signs Date Temp Pulse Resp B/P (MAP) Pulse Ox O2 O2 Flow FiO2 Time Delivery Rate 06/07/18 55 10:15 06/07/18 Nasal 4.0 08:00 Cannula 06/07/18 97.8 18 143/67 96 07:40 (92) Intake and Output 06/06/18 06/06/18 06/07/18 1515:00 23:00 07:00 IntakeIntake Total 480 ml 500 ml OutputOutput Total 20 ml BalanceBalance 460 ml 500 ml Exam Neck: No jvd Respiratory: clear to auscultation Cardiovascular: regular rate and rhythm Gastrointestinal: soft Extremities: No edema, No tenderness Medications Medications Current Medications Dextrose (D50w Syringe) ONCE PRN IV DECREASED GLUCOSE Last administered on 06/06/18at 08:18; Admin Dose 50 ML; Start 06/06/18 at 08:00 Acetaminophen (Tylenol Tab) 500 mg Q4H PRN PO MILD PAIN(1-3)OR ELEVATED TEMP; Start 06/06/18 at 11:00 Allopurinol (Zyloprim) 300 mg DAILY PO ; Start 06/07/18 at 09:00 Aspirin (Aspirin) 81 mg DAILY PO Last administered on 06/06/18at 11:26; Admin Dose 81 MG; Start 06/06/18 at 11:00 Atorvastatin Calcium (Lipitor) 20 mg QHS PO Last administered on 06/06/18at 20:29; Admin Dose 20 MG; Start 06/06/18 at 21:00 Calcium Carbonate (Oyster Shell Calcium) 0.5 gm BID PO Last administered on at 20:30; Admin Dose 0.5 GM; Start 06/06/18 at 21:00 Clonidine (Catapres) 0.1 mg BID PO Last administered on 06/06/18at 20:29; Admin Dose 0.1 MG; Start 06/06/18 at 11:00 Clopidogrel Bisulfate (plaVIX) 75 mg DAILY PO Last administered on 06/06/18at 11:27; Admin Dose 75 MG; Start 06/06/18 at 11:00 Isosorbide Mononitrate (Imdur) 120 mg DAILY PO ; Start 06/06/18 at 11:00 Metoprolol Tartrate (Lopressor) 25 mg BID PO Last administered on 06/06/18at 20:30; Admin Dose 25 MG; Start 06/06/18 at 11:00 Primidone (Mysoline) 25 mg HS PO Last administered on 06/06/18at 20:30; Admin Dose 25 MG; Start 06/06/18 at 21:00 Tramadol HCl (Ultram) 50 mg Q6H PRN PO PAIN Last administered on 06/07/18 06:02; Admin Dose 50 MG; Start 06/06/18 at 11:00 Vancomycin HCl (Vanco Iv Per Pharmacy) VANCOMYCIN PER PHARMACY PER PROTOCOL XX ; Start 06/06/18 at 13:30 Levofloxacin (Levaquin) 500 mg Q48H PO ; Start 06/08/18 at 13:30; Stop 06/14/18 at 13:29 IV Flush (NS 3 ml) 3 ml PER PROTOCOL IV ; Start 06/06/18 at 14:00 Lorazepam (Ativan) 0.5 mg Q8H PRN PO ANXIETY; Start 06/06/18 at 14:00 Acetaminophen/ Hydrocodone Bitart ([place] (5/325)) 1 tab Q6H PRN PO PAIN LEVEL 4-6 Last administered on 06/07/18at 03:20; Admin Dose 1 TAB; Start 06/06/18 at 14:00 Docusate Sodium (Colace) 100 mg Q12H PRN PO CONSTIPATION; Start 06/06/18 at 14:00 Famotidine (Pepcid) 20 mg Q24H PO Last administered on 06/06/18at 20:30; Admin Dose 20 MG; Start 06/06/18 at 21:00 Digoxin (Digoxin) 0.0625 mg DAILY@1300 PO ; Start 06/07/18 at 13:00 Furosemide (Lasix) 40 mg DAILY PO ; Start 06/07/18 at 09:00 Tizanidine HCl (Zanaflex) 2 mg TID PO Last administered on 06/06/18at 20:29; Admin Dose 2 MG; Start 06/06/18 at 21:00; Stop 06/08/18 at 20:59 Celecoxib (Celebrex) 100 mg BID PO Last administered on 06/06/18at 20:29; Admin Dose 100 MG; Start 06/06/18 at 14:00 JANETH SHEPARD MD Jun 07, 2018 10:36
[2018-06-07] MEDS: CELECOXIB 100 MG CAP PO SCH ×2 (12:15→20:34)
[2018-06-07] MEDS: TIZANIDINE 2 MG TAB PO SCH ×3 (12:17→20:34)
[2018-06-07] MEDS: FUROSEMIDE 40 MG TAB PO SCH (12:17)
[2018-06-07] MEDS: DIGOXIN 0.125 MG TAB PO SCH (12:18)
[2018-06-07] MEDS: CALCIUM CARBONATE 1.25 GM TAB PO SCH ×2 (12:18→20:33)
[2018-06-07] MEDS: CLOPIDOGREL 75 MG TAB PO SCH (12:18)
[2018-06-07] MEDS: ALLOPURINOL 300 MG TAB PO SCH (12:19)
[2018-06-07] MEDS: ISOSORBIDE MONONITRATE(SR)60 MG TAB PO SCH (12:19)
[2018-06-07] MEDS: ASPIRIN 81 MG TAB PO SCH (12:19)
--- NOTE | 2018-06-07 13:02 | PN ---
Date/Time of Note Date/Time of Note DATE: 06/07/18 TIME: 12:58 Assessment/Plan VTE Prophylaxis Risk score (from Ns)>0 risk: 6 SCD applied (from Ns): Yes Pharmacological prophylaxis: NA/contraindicated Pharm contraindication: renal impairment Lines/Catheters IV [facility] Saline Lock Urinary Cath still in place: No Assessment/Plan Result Diagram: 06/07/18 0512 06/07/18 1130 Results 24hrs Laboratory Tests Test 06/07/18 05:12 06/07/18 07:58 06/07/18 11:30 White Blood Count 17.6 H Red Blood Count 3.48 L Hemoglobin 10.3 L Hematocrit 32.5 L Mean Corpuscular Volume 93.4 Mean Corpuscular Hemoglobin 29.6 Mean Corpuscular 31.7 L Hemoglobin Concent Red Cell Distribution Width 14.0 Platelet Count 256 # Mean Platelet Volume 10.8 H Immature Granulocytes % 1.000 H Neutrophils % 91.1 H Lymphocytes % 2.8 L Monocytes % 4.5 Eosinophils % 0.3 Basophils % 0.3 Nucleated Red Blood Cells % 0.0 Immature Granulocytes # 0.170 H Neutrophils # 16.1 H Lymphocytes # 0.5 L Monocytes # 0.8 Eosinophils # 0.1 Basophils # 0.1 Nucleated Red Blood Cells # 0.0 Erythrocyte Sedimentation Rate 28 H Sodium Level 138 Potassium Level 8.6 #*H 4.6 # Chloride Level 99 Carbon Dioxide Level 27 Anion Gap 12 # Blood Urea Nitrogen 95 H Creatinine 8.97 H Est Glomerular Filtrat Rate mL/min Glucose Level 107 Lactic Acid Level 1.5 Calcium Level 9.0 Phosphorus Level 4.4 Magnesium Level 2.4 Iron Level 50 Total Iron Binding Capacity 214 L Percent Iron Saturation 23 Ferritin 1470.0 H Total Bilirubin 0.2 Direct Bilirubin 0.00 Indirect Bilirubin 0.2 Aspartate Amino 72 H Transf (AST/SGOT) Alanine 26 Aminotransferase (ALT/SGPT) Alkaline Phosphatase 170 H Total Protein 6.2 Albumin 3.7 Globulin 2.50 Albumin/Globulin Ratio 1.48 Hepatitis B Surface Antigen NEGATIVE Subjective 24 Hr Interval Summary Free Text/Dictation pleasant older man with esrd, fell from toilet seat at home and difficulty get ting up, brought in by ambulance. mild hyperkalemia, had dialysis this am, elev lactate cultures pending, does not appear septic sitting in bed conversant alert lungs clear, hr ok, no edema plan follow up lytes post hd, and probably do aain tomorrow with dc afterwards if cleared by pt and cultures negative. discussed with and patient at bedside Musculoskeletal: back pain Exam/Review of Systems Vital Signs Vitals Vital Signs Date Temp Pulse Resp B/P (MAP) Pulse Ox O2 O2 Flow FiO2 Time Delivery Rate 06/07/18 66 12:00 06/07/18 97.8 18 143/70 96 Room Air 11:35 (94) 06/07/18 4.0 11:29 Intake and Output 06/06/18 06/06/18 06/07/18 1515:00 23:00 07:00 IntakeIntake Total 480 ml 500 ml OutputOutput Total 20 ml BalanceBalance 460 ml 500 ml Medications Medications Current Medications Dextrose (D50w Syringe) ONCE PRN IV DECREASED GLUCOSE Last administered on 06/06/18at 08:18; Admin Dose 50 ML; Start 06/06/18 at 08:00 Acetaminophen (Tylenol Tab) 500 mg Q4H PRN PO MILD PAIN(1-3)OR ELEVATED TEMP; Start 06/06/18 at 11:00 Allopurinol (Zyloprim) 300 mg DAILY PO Last administered on 06/07/18at 12:19; Admin Dose 300 MG; Start 06/07/18 at 09:00 Aspirin (Aspirin) 81 mg DAILY PO Last administered on 06/07/18at 12:19; Admin Dose 81 MG; Start 06/06/18 at 11:00 Atorvastatin Calcium (Lipitor) 20 mg QHS PO Last administered on 06/06/18at 20:29; Admin Dose 20 MG; Start 06/06/18 at 21:00 Calcium Carbonate (Oyster Shell Calcium) 0.5 gm BID PO Last administered on 06/07/18at 12:18; Admin Dose 0.5 GM; Start 06/06/18 at 21:00 Clonidine (Catapres) 0.1 mg BID PO Last administered on 06/06/18at 20:29; Admin Dose 0.1 MG; Start 06/06/18 at 11:00 Clopidogrel Bisulfate (plaVIX) 75 mg DAILY PO Last administered on 06/07/18at 12:18; Admin Dose 75 MG; Start 06/06/18 at 11:00 Isosorbide Mononitrate (Imdur) 120 mg DAILY PO Last administered on 06/07/18 12:19; Admin Dose 120 MG; Start 06/06/18 at 11:00 Metoprolol Tartrate (Lopressor) 25 mg BID PO Last administered on 06/06/18 20:30; Admin Dose 25 MG; Start 06/06/18 at 11:00 Primidone (Mysoline) 25 mg HS PO Last administered on 06/06/18at 20:30; Admin Dose 25 MG; Start 06/06/18 at 21:00 Tramadol HCl (Ultram) 50 mg Q6H PRN PO PAIN Last administered on 06/07/18 06:02; Admin Dose 50 MG; Start 06/06/18 at 11:00 Vancomycin HCl (Vanco Iv Per Pharmacy) VANCOMYCIN PER PHARMACY PER PROTOCOL XX ; Start 06/06/18 at 13:30 Levofloxacin (Levaquin) 500 mg Q48H PO ; Start 06/08/18 at 13:30; Stop 06/14/18 at 13:29 IV Flush (NS 3 ml) 3 ml PER PROTOCOL IV ; Start 06/06/18 at 14:00 Lorazepam (Ativan) 0.5 mg Q8H PRN PO ANXIETY; Start 06/06/18 at 14:00 Acetaminophen/ Hydrocodone Bitart ([place] (5/325)) 1 tab Q6H PRN PO PAIN LEVEL 4-6 Last administered on 06/07/18at 03:20; Admin Dose 1 TAB; Start 06/06/18 at 14:00 Docusate Sodium (Colace) 100 mg Q12H PRN PO CONSTIPATION; Start 06/06/18 at 14:00 Famotidine (Pepcid) 20 mg Q24H PO Last administered on 06/06/18at 20:30; Admin Dose 20 MG; Start 06/06/18 at 21:00 Digoxin (Digoxin) 0.0625 mg DAILY@1300 PO Last administered on 06/07/18 12:18; Admin Dose 0.0625 MG; Start 06/07/18 at 13:00 Furosemide (Lasix) 40 mg DAILY PO Last administered on 06/07/18 12:17; Admin Dose 40 MG; Start 06/07/18 at 09:00 Tizanidine HCl (Zanaflex) 2 mg TID PO Last administered on 12/28/18at 12:17; Admin Dose 2 MG; Start 06/06/18 at 21:00; Stop 06/08/18 at 20:59 Celecoxib (Celebrex) 100 mg BID PO Last administered on 06/07/18at 12:15; Admin Dose 100 MG; Start 06/06/18 at 14:00 Epoetin [place] (Epogen (Esrd)) 10,000 units MoWeFr@17 SC ; Start 06/07/18 at 17:00 Multivit/Ca Carb/ B Cmplx/FA/Prenat (Fany-Jose Luis) 1 tab DAILY PO ; Start 06/08/18 at 09:00 MELLO SAUER MD Jun 07, 2018 13:02
[2018-06-07] MEDS: EPOETIN 10000 UNITS/1 ML INJ (ESRD) SC SCH (17:54)
[2018-06-07] MEDS: ATORVASTATIN 20 MG TAB PO SCH (20:34)
[2018-06-07] MEDS: PRIMIDONE 50 MG TAB PO SCH (20:34)
[2018-06-07] MEDS: FAMOTIDINE 20 MG TAB PO SCH (20:34)
[2018-06-08] VITALS (21 sets, daily range): BP systolic 93–145; BP diastolic 38–76; PULSE 56–74; RESP 18–19
[2018-06-08] MEDS: HYDROCODONE/APAP (5/325) TAB PO PRN (04:02)
[2018-06-08] MEDS: TIZANIDINE 2 MG TAB PO SCH ×2 (08:54→13:57)
[2018-06-08] MEDS: ISOSORBIDE MONONITRATE(SR)60 MG TAB PO SCH (08:54)
[2018-06-08] MEDS: CELECOXIB 100 MG CAP PO SCH ×2 (08:54→21:17)
[2018-06-08] MEDS: CALCIUM CARBONATE 1.25 GM TAB PO SCH ×2 (08:54→21:15)
[2018-06-08] MEDS: ALLOPURINOL 300 MG TAB PO SCH (08:55)
[2018-06-08] MEDS: MULTIVIT/CA CARB/B CMPLX/FA TAB PO SCH (08:55)
[2018-06-08] MEDS: FUROSEMIDE 40 MG TAB PO SCH (08:56)
[2018-06-08] MEDS: CLOPIDOGREL 75 MG TAB PO SCH (08:56)
[2018-06-08] MEDS: ASPIRIN 81 MG TAB PO SCH (08:57)
[2018-06-08] MEDS: METOPROLOL 25 MG TAB PO SCH ×2 (08:57→21:00)
--- NOTE | 2018-06-08 09:29 | PN ---
Date/Time of Note Date/Time of Note DATE: 06/08/18 TIME: 09:24 Assessment/Plan VTE Prophylaxis Risk score (from [facility] [place] risk: 6 SCD applied (from Ns): Yes Pharmacological prophylaxis: LMWH Lines/Catheters IV Catheter Type (from [facility]): [place] Urinary Cath still in place: No Assessment/Plan Problems: (1) Hematuria Status: Acute Comment: He may actually be having some obstruction. I will ask urology to take an evaluation of him to give us better definition about how to proceed forward. Qualifiers: Hematuria type: unspecified type Qualified Codes: R31.9 - Hematuria, unspecified (2) Troponin level elevated Status: Acute Comment: While CPK has not been that high his troponin is and bart. Some of this is undoubtedly due to his renal dysfunction however given her known history of coronary artery disease even though he is not completely asymptomatic a dividual I will have his regular cardiology group evaluated and make sure that I am not overlooking something important (3) CAD (coronary artery disease) Status: Chronic Comment: As above. No symptomatic anginal equivalents Qualifiers: Coronary Disease-Associated Artery/Lesion type: [place] artery [place] vs. transplanted heart: menominee heart Associated angina: without angina Qualified Codes: I25.10 - Atherosclerotic heart disease of [place]ominee coronary artery without angina pectoris (4) Hypertension Status: Chronic Comment: Adequate control Qualifiers: Hypertension type: essential hypertension Qualified Codes: I10 - Essential (primary) hypertension (5) Hyperlipidemia Status: Chronic Comment: Remains on statin therapy Qualifiers: Hyperlipidemia type: pure hypercholesterolemia Qualified Codes: E78.00 - Pure hypercholesterolemia, unspecified (6) Fall with no significant injury Status: Acute Comment: His back pain is improved and he was seen by physical therapy yesterday and should be seen again today. If no other issues come up in the hematuria and troponin are not major issues then he can probably be discharged tomorrow. Qualifiers: Encounter type: initial encounter Qualified Codes: W19.XXXA - Unspecified fall, initial encounter (7) Prostatic hypertrophy Status: Chronic Comment: Noted, urology and see in consultation (8) End stage renal disease on dialysis Status: Chronic Comment: As per nephrology. He probably needs another dialysis today (9) Systolic CHF with reduced left ventricular function, NYHA class 3 Status: Chronic Comment: Stable on treatment Result Diagram: 06/08/1852406/08/18524 Results 24hrs Laboratory Tests Test 06/07/18 11:30 06/08/18 05:25 Potassium Level 4.6 # 6.0 H White Blood Count 13.0 #H Red Blood Count 3.23 L Hemoglobin 9.6 L Hematocrit 29.7 L Mean Corpuscular Volume 92.0 Mean Corpuscular Hemoglobin 29.7 Mean Corpuscular Hemoglobin Concent 32.3 Red Cell Distribution Width 14.0 Platelet Count 266 Mean Platelet Volume 10.4 Immature Granulocytes % 0.300 Neutrophils % 85.7 H Lymphocytes % 3.3 L Monocytes % 7.3 Eosinophils % 2.9 Basophils % 0.5 Nucleated Red Blood Cells % 0.0 Immature Granulocytes # 0.040 H Neutrophils # 11.1 H Lymphocytes # 0.4 L Monocytes # 1.0 H Eosinophils # 0.4 Basophils # 0.1 Nucleated Red Blood Cells # 0.0 Sodium Level 138 Chloride Level 91 L Carbon Dioxide Level 36 H Anion Gap 11 Blood Urea Nitrogen 63 #H Creatinine 6.84 #H Est Glomerular Filtrat Rate mL/min Glucose Level 105 Calcium Level 9.0 Phosphorus Level 5.4 H Creatine Kinase 355 H Creatine Kinase Index 2.4 Creatinine Kinase MB (Mass) 8.35 H Troponin I 6.710 *H Vancomycin Level Trough 11.1 Subjective 24 Hr Interval Summary Free Text/Dictation Patient reports since catheterization in the emergency room he has had hematuria is now having difficulty emptying his bladder Constitutional: no complaints Respiratory: no complaints Cardiovascular: no complaints (Very carefully and specifically denies any chest pain or equivalents thereof denies palpitations orthopnea or PND) Gastrointestinal: no complaints Genitourinary: bleeding (Post catheterization in the emergency room) Musculoskeletal: back pain (Reports back pain has improved) Exam/Review of Systems Vital Signs Vitals Vital Signs Date Temp Pulse Resp B/P (MAP) Pulse Ox O2 O2 Flow FiO2 Time Delivery Rate 06/08/18 72 08:57 06/08/18 97.8 18 128/73 92 Nasal 08:33 (91) Cannula 06/07/18 4.0 20:00 Intake and Output 06/07/18 06/07/18 06/08/18 1515:00 23:00 07:00 IntakeIntake Total 600 ml 500 ml OutputOutput Total 1400 ml 200 ml 30 ml BalanceBalance -1400 ml 400 ml 470 ml Exam Constitutional: alert, oriented Neck: supple, non-tender Respiratory: clear to auscultation, normal air movement Cardiovascular: regular rate and rhythm, nl pulses Gastrointestinal: soft, nl liver, spleen, non-tender Genitourinary - Male: other (Blood at meatus) Medications Medications Current Medications Dextrose (D50w Syringe) ONCE PRN IV DECREASED GLUCOSE Last administered on 06/06/18 08:18; Admin Dose 50 ML; Start 06/06/18 at 08:00 Acetaminophen (Tylenol Tab) 500 mg Q4H PRN PO MILD PAIN(1-3)OR ELEVATED TEMP; Start 06/06/18 at 11:00 Allopurinol (Zyloprim) 300 mg DAILY PO Last administered on 06/08/18 08:55; Admin Dose 300 MG; Start 06/07/18 at 09:00 Aspirin (Aspirin) 81 mg DAILY PO Last administered on 06/08/18 08:57; Admin Dose 81 MG; Start 06/06/18 at 11:00 Atorvastatin Calcium (Lipitor) 20 mg QHS PO Last administered on 06/07/18 20:34; Admin Dose 20 MG; Start 06/06/18 at 21:00 Calcium Carbonate (Oyster Shell Calcium) 0.5 gm BID PO Last administered on 06/08/18 08:54; Admin Dose 0.5 GM; Start 06/06/18 at 21:00 Clonidine (Catapres) 0.1 mg BID PO Last administered on 06/07/18 20:34; Admin Dose 0.1 MG; Start 06/06/18 at 11:00 Clopidogrel Bisulfate (plaVIX) 75 mg DAILY PO Last administered on 06/08/18 08:56; Admin Dose 75 MG; Start 06/06/18 at 11:00 Isosorbide Mononitrate (Imdur) 120 mg DAILY PO Last administered on 06/08/18 08:54; Admin Dose 120 MG; Start 06/06/18 at 11:00 Metoprolol Tartrate (Lopressor) 25 mg BID PO Last administered on 06/08/18 08:57; Admin Dose 25 MG; Start 06/06/18 at 11:00 Primidone (Mysoline) 25 mg HS PO Last administered on 06/07/18 20:34; Admin Dose 25 MG; Start 06/06/18 at 21:00 Tramadol HCl (Ultram) 50 mg Q6H PRN PO PAIN Last administered on 06/07/18at 18:07; Admin Dose 50 MG; Start 06/06/18 at 11:00 Vancomycin HCl (Vanco Iv Per Pharmacy) VANCOMYCIN PER PHARMACY PER PROTOCOL XX ; Start 06/06/18 at 13:30 Levofloxacin (Levaquin) 500 mg Q48H PO ; Start 06/08/18 at 13:30; Stop 06/14/18 at 13:29 IV Flush (NS 3 ml) 3 ml PER PROTOCOL IV ; Start 06/06/18 at 14:00 Lorazepam (Ativan) 0.5 mg Q8H PRN PO ANXIETY; Start 06/06/18 at 14:00 Acetaminophen/ Hydrocodone Bitart ([place] (5/325)) 1 tab Q6H PRN PO PAIN LEVEL 4-6 Last administered on 06/08/18at 04:02; Admin Dose 1 TAB; Start 06/06/18 at 14:00 Docusate Sodium (Colace) 100 mg Q12H PRN PO CONSTIPATION; Start 06/06/18 at 14:00 Famotidine (Pepcid) 20 mg Q24H PO Last administered on 06/07/18at 20:34; Admin Dose 20 MG; Start 06/06/18 at 21:00 Digoxin (Digoxin) 0.0625 mg DAILY@1300 PO Last administered on 06/07/18at 12:18; Admin Dose 0.0625 MG; Start 06/07/18 at 13:00 Furosemide (Lasix) 40 mg DAILY PO Last administered on 06/08/18at 08:56; Admin Dose 40 MG; Start 06/07/18 at 09:00 Tizanidine HCl (Zanaflex) 2 mg TID PO Last administered on 06/08/18at 08:54; Admin Dose 2 MG; Start 06/06/18 at 21:00; Stop 06/08/18 at 20:59 Celecoxib (Celebrex) 100 mg BID PO Last administered on 06/08/18at 08:54; Admin Dose 100 MG; Start 06/06/18 at 14:00 Epoetin Calos (Epogen (Esrd)) 10,000 units MoWeFr@17 SC Last administered on 06/07/18at 17:54; Admin Dose 10,000 UNITS; Start 06/07/18 at 17:00 Multivit/Ca Carb/ B Cmplx/FA/Prenat (Afny-Jose Luis) 1 tab DAILY PO Last administered on 06/08/18at 08:55; Admin Dose 1 TAB; Start 06/08/18 at 09:00 Vancomycin HCl 250 ml @ 125 mls/hr ONCE ONCE IVPB ; Start 06/08/18 at 16:00; Stop 06/08/18 at 17:59 RUTH VAZQUEZ MD Jun 08, 2018 09:29
[2018-06-08] MEDS ORDERED: HYDROmorphONE 0.5 MG/0.5 ML SYG IM STA (10:28)
--- NOTE | 2018-06-08 11:32 | CONS ---
Date/Time of Note Date/Time of Note DATE: 06/08/18 TIME: 11:17 Assessment/Plan Assessment/Plan Assessment/Plan 88-year-old male had gone to the bathroom both for stool and urination. He was trying to get off of the toilet and slid and actually got himself trapped between the toilet and the bathtub. He did not have head trauma and he did not have loss of consciousness. He did not have chest pain or palpi tations. He was stuck in that position for minimum of 2 hours before finally requesting external help. He was brought to the emergency room and admitted. He is on hemodialysis and went to the emergency room try to get a urine specimen from him he was not able to urinate and they did a straight cath on him and since then he has had gross hematuria. Therefore a urological consultation was requested. The patient has been on hemodialysis for about 5 years. He still makes urine and urinates once at night and about 4 times a day. He has undergone a transurethral resection of the prostate when he was 59 years old. He reports his urine to be clear. He has not seen a urologist for few years. On the examination his bladder was full and he was in urinary retention. I first inserted a 16 [place] Llamas catheter and drained dark old blood out of the bladder. He had a lot of blood clots therefore I changed the Llamas catheter to a 20 [place] three-way Llamas catheter with a 30 cc balloon. I spent over 1 hour hand irrigating the blood clots out of the bladder and then started him on continuous bladder irrigation with normal saline. The patient is on Plavix and aspirin and because of his fall he may have caused kidney injury such as laceration or even fracture of the kidney. Therefore I ordered a CT scan of the abdomen and pelvis. We have to monitor his H&H and transfuse him as needed. Whether to hold the Plavix and aspirin depends on the CT scan finding. Also his prostate is large and nodular. I therefore ordered a PSA on him. He is already on antibiotic and we shall continue that. Result Diagram: 06/08/18 0525 06/08/18 0525 Results 24hrs Laboratory Tests Test 06/07/18 11:30 06/08/18 05:25 Potassium Level 4.6 # 6.0 H White Blood Count 13.0 #H Red Blood Count 3.23 L Hemoglobin 9.6 L Hematocrit 29.7 L Mean Corpuscular Volume 92.0 Mean Corpuscular Hemoglobin 29.7 Mean Corpuscular Hemoglobin Concent 32.3 Red Cell Distribution Width 14.0 Platelet Count 266 Mean Platelet Volume 10.4 Immature Granulocytes % 0.300 Neutrophils % 85.7 H Lymphocytes % 3.3 L Monocytes % 7.3 Eosinophils % 2.9 Basophils % 0.5 Nucleated Red Blood Cells % 0.0 Immature Granulocytes # 0.040 H Neutrophils # 11.1 H Lymphocytes # 0.4 L Monocytes # 1.0 H Eosinophils # 0.4 Basophils # 0.1 Nucleated Red Blood Cells # 0.0 Sodium Level 138 Chloride Level 91 L Carbon Dioxide Level 36 H Anion Gap 11 Blood Urea Nitrogen 63 #H Creatinine 6.84 #H Est Glomerular Filtrat Rate mL/min Glucose Level 105 Calcium Level 9.0 Phosphorus Level 5.4 H Creatine Kinase 355 H Creatine Kinase Index 2.4 Creatinine Kinase MB (Mass) 8.35 H Troponin I 6.710 *H Vancomycin Level Trough 11.1 Consultation Date/Type/Reason Admit Date/Time Jun 06, 2018 at 08:52 Date of Consultation: Jun 08, 2018 Type of Consult Urology Reason for Consultation Gross hematuria Requesting Provider: RUTH VAZQUEZ MD Hx of Present Illness 88-year-old male had gone to the bathroom both for stool and urination. He was trying to get off of the toilet and slid and actually got himself trapped between the toilet and the bathtub. He did not have head trauma and he did not have loss of consciousness. He did not have chest pain or palpitations. He was stuck in that position for minimum of 2 hours before finally requesting external help. He was brought to the emergency room and admitted. He is on hemodialysis and went to the emergency room try to get a urine specimen from him he was not able to urinate and they did a straight cath on him and since then he has had gross hematuria. Therefore a urological consultation was requested. The patient has been on hemodialysis for about 5 years. He still makes urine and urinates once at night and about 4 times a day. He has undergone a transurethral resection of the prostate when he was 59 years old. He reports his urine to be clear. He has not seen a urologist for few years. Constitutional: other (Complains of pain mostly in his back) Eyes: no complaints ENT: no complaints Respiratory: no complaints Cardiovascular: No chest pain Gastrointestinal: no complaints Genitourinary: hematuria Musculoskeletal: back pain Skin: No bruising Neurologic: No confusion Endocrine: no complaints Lymphatic: no complaints Psychological: no complaints Past Medical History Medical History: congestive heart failure ([place] [employer] stage IV), coronary artery disease (Status post PCI with interventions prior to CABG in 2012), high cholesterol, hypertension, renal disease (End-stage renal disease nonoliguric on hemodialysis 3 days a week), other (Hyperuricemia; essential tremor; osteoarthritis;) Medications Current Medications Dextrose (D50w Syringe) ONCE PRN IV DECREASED GLUCOSE Last administered on 06/06/18 08:18; Admin Dose 50 ML; Start 06/06/18 at 08:00 Acetaminophen (Tylenol Tab) 500 mg Q4H PRN PO MILD PAIN(1-3)OR ELEVATED TEMP; Start 06/06/18 at 11:00 Allopurinol (Zyloprim) 300 mg DAILY PO Last administered on 06/08/18 08:55; Admin Dose 300 MG; Start 06/07/18 at 09:00 Aspirin (Aspirin) 81 mg DAILY PO Last administered on 06/08/18 08:57; Admin Dose 81 MG; Start 06/06/18 at 11:00 Atorvastatin Calcium (Lipitor) 20 mg QHS PO Last administered on 06/07/18 20:34; Admin Dose 20 MG; Start 06/06/18 at 21:00 Calcium Carbonate (Oyster Shell Calcium) 0.5 gm BID PO Last administered on 06/08/18 08:54; Admin Dose 0.5 GM; Start 06/06/18 at 21:00 Clonidine (Catapres) 0.1 mg BID PO Last administered on 06/07/18 20:34; Admin Dose 0.1 MG; Start 06/06/18 at 11:00 Clopidogrel Bisulfate (plaVIX) 75 mg DAILY PO Last administered on 06/08/18 08:56; Admin Dose 75 MG; Start 06/06/18 at 11:00 Isosorbide Mononitrate (Imdur) 120 mg DAILY PO Last administered on 06/08/18 08:54; Admin Dose 120 MG; Start 06/06/18 at 11:00 Metoprolol Tartrate (Lopressor) 25 mg BID PO Last administered on 06/08/18at 08:57; Admin Dose 25 MG; Start 06/06/18 at 11:00 Primidone (Mysoline) 25 mg HS PO Last administered on 06/07/18at 20:34; Admin Dose 25 MG; Start 06/06/18 at 21:00 Tramadol HCl (Ultram) 50 mg Q6H PRN PO PAIN Last administered on 06/07/18at 18:07; Admin Dose 50 MG; Start 06/06/18 at 11:00 Vancomycin HCl (Vanco Iv Per Pharmacy) VANCOMYCIN PER PHARMACY PER PROTOCOL XX ; Start 06/06/18 at 13:30 Levofloxacin (Levaquin) 500 mg Q48H PO ; Start 06/08/18 at 13:30; Stop 06/14/18 at 13:29 IV Flush (NS 3 ml) 3 ml PER PROTOCOL IV ; Start 06/06/18 at 14:00 Lorazepam (Ativan) 0.5 mg Q8H PRN PO ANXIETY; Start 06/06/18 at 14:00 Acetaminophen/ Hydrocodone Bitart (Gully (5/325)) 1 tab Q6H PRN PO PAIN LEVEL 4-6 Last administered on 06/08/18at 04:02; Admin Dose 1 TAB; Start 06/06/18 at 14:00 Docusate Sodium (Colace) 100 mg Q12H PRN PO CONSTIPATION; Start 06/06/18 at 14:00 Famotidine (Pepcid) 20 mg Q24H PO Last administered on 06/07/18at 20:34; Admin Dose 20 MG; Start 06/06/18 at 21:00 Digoxin (Digoxin) 0.0625 mg DAILY@1300 PO Last administered on 06/07/18at 12:18; Admin Dose 0.0625 MG; Start 06/07/18 at 13:00 Furosemide (Lasix) 40 mg DAILY PO Last administered on 06/08/18at 08:56; Admin Dose 40 MG; Start 06/07/18 at 09:00 Tizanidine HCl (Zanaflex) 2 mg TID PO Last administered on 06/08/18at 08:54; Admin Dose 2 MG; Start 06/06/18 at 21:00; Stop 06/08/18 at 20:59 Celecoxib (Celebrex) 100 mg BID PO Last administered on 06/08/18at 08:54; Admin Dose 100 MG; Start 06/06/18 at 14:00 Epoetin Calos (Epogen (Esrd)) 10,000 units MoWeFr@17 SC Last administered on 06/07/18at 17:54; Admin Dose 10,000 UNITS; Start 06/07/18 at 17:00 Multivit/Ca Carb/ B Cmplx/FA/Prenat (Fany-Jose Luis) 1 tab DAILY PO Last administered on 06/08/18at 08:55; Admin Dose 1 TAB; Start 06/08/18 at 09:00 Vancomycin HCl 250 ml @ 125 mls/hr ONCE ONCE IVPB ; Start 06/08/18 at 16:00; Stop 06/08/18 at 17:59 Allergies: Coded Allergies: Penicillins (Unverified Allergy, Severe, ANAPHYLACTIC, 06/06/18) Past Surgical History Past Surgical Hx: coronary bypass surgery, other (Construction of AV fistula bilateral upper extremities; coronary artery bypass graft and transurethral resection of prostate. Recent surgery for skin cancer of the head, cataract surgery on one eye he does not remember which side) Social History Alcohol Use: none Smoking Status: Former smoker Drug Use: none Exam/Review of Systems Vital Signs Vitals Vital Signs Date Temp Pulse Resp B/P (MAP) Pulse Ox O2 O2 Flow FiO2 Time Delivery Rate 06/08/18 72 08:57 06/08/18 97.8 18 128/73 92 Nasal 08:33 (91) Cannula 06/07/18 4.0 20:00 Intake and Output 06/07/18 06/07/18 06/08/18 1515:00 23:00 07:00 IntakeIntake Total 600 ml 500 ml OutputOutput Total 1400 ml 200 ml 30 ml BalanceBalance -1400 ml 400 ml 470 ml Exam Constitutional: alert, oriented Psych: no complaints Head: other (Recent surgery for skin cancer) Eyes: nl conjunctiva ENMT: nl external ears & nose Neck: supple, non-tender Respiratory: normal air movement Cardiovascular: No jugular venous distention (JVD) Gastrointestinal: tender (In the suprapubic area, the bladder is distended. I did a bladder scan and he had about 500 mL in the bladder.) Genitourinary - Male: other (Bleeding from the penis, rectal exam: Prostate is large and nodular.) Musculoskeletal: nl extremities to inspection Extremities: cyanosis (Of both hands. His fingers look purple), other (Very poor peripheral circulation); No calf tenderness Skin: other (Skin cancer on the head) Lymph: nl lymph nodes Medications Medications Current Medications Dextrose (D50w Syringe) ONCE PRN IV DECREASED GLUCOSE Last administered on 06/06/18 08:18; Admin Dose 50 ML; Start 06/06/18 at 08:00 Acetaminophen (Tylenol Tab) 500 mg Q4H PRN PO MILD PAIN(1-3)OR ELEVATED TEMP; Start 06/06/18 at 11:00 Allopurinol (Zyloprim) 300 mg DAILY PO Last administered on 06/08/18 08:55; Admin Dose 300 MG; Start 06/07/18 at 09:00 Aspirin (Aspirin) 81 mg DAILY PO Last administered on 06/08/18 08:57; Admin Dose 81 MG; Start 06/06/18 at 11:00 Atorvastatin Calcium (Lipitor) 20 mg QHS PO Last administered on 06/07/18 20:34; Admin Dose 20 MG; Start 06/06/18 at 21:00 Calcium Carbonate (Oyster Shell Calcium) 0.5 gm BID PO Last administered on 06/08/18 08:54; Admin Dose 0.5 GM; Start 06/06/18 at 21:00 Clonidine (Catapres) 0.1 mg BID PO Last administered on 06/07/18 20:34; Admin Dose 0.1 MG; Start 06/06/18 at 11:00 Clopidogrel Bisulfate (plaVIX) 75 mg DAILY PO Last administered on 06/08/18 08:56; Admin Dose 75 MG; Start 06/06/18 at 11:00 Isosorbide Mononitrate (Imdur) 120 mg DAILY PO Last administered on 06/08/18 08:54; Admin Dose 120 MG; Start 06/06/18 at 11:00 Metoprolol Tartrate (Lopressor) 25 mg BID PO Last administered on 06/08/18 08:57; Admin Dose 25 MG; Start 06/06/18 at 11:00 Primidone (Mysoline) 25 mg HS PO Last administered on 06/07/18 20:34; Admin Dose 25 MG; Start 06/06/18 at 21:00 Tramadol HCl (Ultram) 50 mg Q6H PRN PO PAIN Last administered on 06/07/18at 18:07; Admin Dose 50 MG; Start 06/06/18 at 11:00 Vancomycin HCl (Vanco Iv Per Pharmacy) VANCOMYCIN PER PHARMACY PER PROTOCOL XX ; Start 06/06/18 at 13:30 Levofloxacin (Levaquin) 500 mg Q48H PO ; Start 06/08/18 at 13:30; Stop 06/14/18 at 13:29 IV Flush (NS 3 ml) 3 ml PER PROTOCOL IV ; Start 06/06/18 at 14:00 Lorazepam (Ativan) 0.5 mg Q8H PRN PO ANXIETY; Start 06/06/18 at 14:00 Acetaminophen/ Hydrocodone Bitart ([place] (5/325)) 1 tab Q6H PRN PO PAIN LEVEL 4-6 Last administered on 06/08/18at 04:02; Admin Dose 1 TAB; Start 06/06/18 at 14:00 Docusate Sodium (Colace) 100 mg Q12H PRN PO CONSTIPATION; Start 06/06/18 at 14:00 Famotidine (Pepcid) 20 mg Q24H PO Last administered on 06/07/18at 20:34; Admin Dose 20 MG; Start 06/06/18 at 21:00 Digoxin (Digoxin) 0.0625 mg DAILY@1300 PO Last administered on 06/07/18at 12:18; Admin Dose 0.0625 MG; Start 06/07/18 at 13:00 Furosemide (Lasix) 40 mg DAILY PO Last administered on 06/08/18at 08:56; Admin Dose 40 MG; Start 06/07/18 at 09:00 Tizanidine HCl (Zanaflex) 2 mg TID PO Last administered on 06/08/18at 08:54; Admin Dose 2 MG; Start 06/06/18 at 21:00; Stop 06/08/18 at 20:59 Celecoxib (Celebrex) 100 mg BID PO Last administered on 06/08/18at 08:54; Admin Dose 100 MG; Start 06/06/18 at 14:00 Epoetin Calos (Epogen (Esrd)) 10,000 units MoWeFr@17 SC Last administered on 06/07/18at 17:54; Admin Dose 10,000 UNITS; Start 06/07/18 at 17:00 Multivit/Ca Carb/ B Cmplx/FA/Prenat (Fany-Jose Luis) 1 tab DAILY PO Last administered on 06/08/18at 08:55; Admin Dose 1 TAB; Start 06/08/18 at 09:00 Vancomycin HCl 250 ml @ 125 mls/hr ONCE ONCE IVPB ; Start 06/08/18 at 16:00; Stop 06/08/18 at 17:59 Imaging Imaging X-rays of the lumbosacral spine:Degenerative changes of the lumbar spine HAI URIBE MD Jun 08, 2018 11:28
--- NOTE | 2018-06-08 12:28 | CONS ---
Date/Time of Note Date/Time of Note DATE: 06/08/18 TIME: 12:24 Assessment/Plan Assessment/Plan Assessment/Plan # ESRD Last HD done yesterday K 6.0 this am Plan HD again today # Hematuria note appreciated CT result noted - atrophic kidneys with cysts Bladder irrigation # Anemia Monitor Hb GARTH # s/p fall with back pain LS spine series negative Result Diagram: 06/08/18 0525 06/08/18 0525 Results 24hrs Laboratory Tests Test 06/08/18 05:25 White Blood Count 13.0 #H Red Blood Count 3.23 L Hemoglobin 9.6 L Hematocrit 29.7 L Mean Corpuscular Volume 92.0 Mean Corpuscular Hemoglobin 29.7 Mean Corpuscular Hemoglobin Concent 32.3 Red Cell Distribution Width 14.0 Platelet Count 266 Mean Platelet Volume 10.4 Immature Granulocytes % 0.300 Neutrophils % 85.7 H Lymphocytes % 3.3 L Monocytes % 7.3 Eosinophils % 2.9 Basophils % 0.5 Nucleated Red Blood Cells % 0.0 Immature Granulocytes # 0.040 H Neutrophils # 11.1 H Lymphocytes # 0.4 L Monocytes # 1.0 H Eosinophils # 0.4 Basophils # 0.1 Nucleated Red Blood Cells # 0.0 Sodium Level 138 Potassium Level 6.0 H Chloride Level 91 L Carbon Dioxide Level 36 H Anion Gap 11 Blood Urea Nitrogen 63 #H Creatinine 6.84 #H Est Glomerular Filtrat Rate mL/min Glucose Level 105 Calcium Level 9.0 Phosphorus Level 5.4 H Creatine Kinase 355 H Creatine Kinase Index 2.4 Creatinine Kinase MB (Mass) 8.35 H Troponin I 6.710 *H Vancomycin Level Trough 11.1 Consultation Date/Type/Reason Admit Date/Time Jun 06, 2018 at 08:52 Initial Consult Date 06/08/18 Type of Consult Nephrology Requesting Provider: RUTH VAZQUEZ MD 24 HR Interval Summary Free Text/Dictation Just returned from CT Scan. Complains of pain all over. Exam/Review of Systems Vital Signs Vitals Vital Signs Date Temp Pulse Resp B/P (MAP) Pulse Ox O2 O2 Flow FiO2 Time Delivery Rate 06/08/18 72 08:57 06/08/18 97.8 18 128/73 92 Nasal 08:33 (91) Cannula 06/08/18 4.0 08:00 Intake and Output 06/07/18 06/07/1806/08/18 1515:00 23:00 07:00 IntakeIntake Total 600 ml 500 ml OutputOutput Total 1400 ml 200 ml 30 ml BalanceBalance -1400 ml 400 ml 470 ml Exam Constitutional: alert Neck: No jvd Respiratory: clear to auscultation Cardiovascular: regular rate and rhythm Gastrointestinal: soft, non-tender Extremities: No edema Medications Medications Current Medications Dextrose (D50w Syringe) ONCE PRN IV DECREASED GLUCOSE Last administered on 06/06/18 08:18; Admin Dose 50 ML; Start 06/06/18 at 08:00 Acetaminophen (Tylenol Tab) 500 mg Q4H PRN PO MILD PAIN(1-3)OR ELEVATED TEMP; Start 06/06/18 at 11:00 Allopurinol (Zyloprim) 300 mg DAILY PO Last administered on 06/08/18 08:55; Admin Dose 300 MG; Start 06/07/18 at 09:00 Aspirin (Aspirin) 81 mg DAILY PO Last administered on 06/08/18 08:57; Admin Dose 81 MG; Start 06/06/18 at 11:00 Atorvastatin Calcium (Lipitor) 20 mg QHS PO Last administered on 06/07/18 20:34; Admin Dose 20 MG; Start 06/06/18 at 21:00 Calcium Carbonate (Oyster Shell Calcium) 0.5 gm BID PO Last administered on 06/08/18 08:54; Admin Dose 0.5 GM; Start 06/06/18 at 21:00 Clonidine (Catapres) 0.1 mg BID PO Last administered on 06/07/18 20:34; Admin Dose 0.1 MG; Start 06/06/18 at 11:00 Clopidogrel Bisulfate (plaVIX) 75 mg DAILY PO Last administered on 06/08/18 08:56; Admin Dose 75 MG; Start 06/06/18 at 11:00 Isosorbide Mononitrate (Imdur) 120 mg DAILY PO Last administered on 06/08/18 08:54; Admin Dose 120 MG; Start 06/06/18 at 11:00 Metoprolol Tartrate (Lopressor) 25 mg BID PO Last administered on 06/08/18 08:57; Admin Dose 25 MG; Start 06/06/18 at 11:00 Primidone (Mysoline) 25 mg HS PO Last administered on 12/28/18at 20:34; Admin Dose 25 MG; Start 06/06/18 at 21:00 Tramadol HCl (Ultram) 50 mg Q6H PRN PO PAIN Last administered on 06/07/18at 18:07; Admin Dose 50 MG; Start 06/06/18 at 11:00 Vancomycin HCl (Vanco Iv Per Pharmacy) VANCOMYCIN PER PHARMACY PER PROTOCOL XX ; Start 06/06/18 at 13:30 Levofloxacin (Levaquin) 500 mg Q48H PO ; Start 06/08/18 at 13:30; Stop 06/14/18 at 13:29 IV Flush (NS 3 ml) 3 ml PER PROTOCOL IV ; Start 06/06/18 at 14:00 Lorazepam (Ativan) 0.5 mg Q8H PRN PO ANXIETY; Start 06/06/18 at 14:00 Acetaminophen/ Hydrocodone Bitart ([place] (5/325)) 1 tab Q6H PRN PO PAIN LEVEL 4-6 Last administered on 06/08/18at 04:02; Admin Dose 1 TAB; Start 06/06/18 at 14:00 Docusate Sodium (Colace) 100 mg Q12H PRN PO CONSTIPATION; Start 06/06/18 at 14:00 Famotidine (Pepcid) 20 mg Q24H PO Last administered on 06/07/18at 20:34; Admin Dose 20 MG; Start 06/06/18 at 21:00 Digoxin (Digoxin) 0.0625 mg DAILY@1300 PO Last administered on 06/07/18at 12:18; Admin Dose 0.0625 MG; Start 06/07/18 at 13:00 Furosemide (Lasix) 40 mg DAILY PO Last administered on 06/08/18at 08:56; Admin Dose 40 MG; Start 06/07/18 at 09:00 Tizanidine HCl (Zanaflex) 2 mg TID PO Last administered on 06/08/18at 08:54; Admin Dose 2 MG; Start 06/06/18 at 21:00; Stop 06/08/18 at 20:59 Celecoxib (Celebrex) 100 mg BID PO Last administered on 06/08/18at 08:54; Admin Dose 100 MG; Start 06/06/18 at 14:00 Epoetin Calos (Epogen (Esrd)) 10,000 units MoWeFr@17 SC Last administered on 06/07/18at 17:54; Admin Dose 10,000 UNITS; Start 06/07/18 at 17:00 Multivit/Ca Carb/ B Cmplx/FA/Prenat (Fany-Jose Luis) 1 tab DAILY PO Last administered on 06/08/18at 08:55; Admin Dose 1 TAB; Start 06/08/18 at 09:00 Vancomycin HCl 250 ml @ 125 mls/hr ONCE ONCE IVPB ; Start 06/08/18 at 16:00; Stop 06/08/18 at 17:59 FREEDOM NATH MD Jun 08, 2018 12:28
[2018-06-08] MEDS: DIGOXIN 0.125 MG TAB PO SCH (13:00)
[2018-06-08] MEDS: LEVOFLOXACIN 500 MG TAB PO SCH (13:54)
--- NOTE | 2018-06-08 15:39 | CONS ---
Date/Time of Note Date/Time of Note DATE: 06/08/18 TIME: 15:22 INPATIENT CONSULTATION REQUESTING PHYSICIAN: Dr. Merritt REASON FOR CONSULT: Coronary artery disease, elevated troponin HISTORY OF PRESENT ILLNESS: 88-year-old white male with 1. Coronary artery disease prior proximal LAD stenting, subsequent obtuse marginal and circumflex stenting 2015. 2. Ischemic cardiomyopathy ejection fraction 30-35%. 3. Chronic renal failure on dialysis. 4. Prior CVA. 5. Gout. 6. Trace aortic regurgitation on prior echocardiogram 2015. 7. Recent fall without syncope this admission. 8. Hyperkalemia this admission. Patient admitted after falling off the commode and lying down without being able to get up for at least 2-3 hours he denied any syncope chest pains or palpitations or dyspnea. He was brought in to the emergency room and found to be hyperkalemic and underwent dialysis yesterday and again will be undergoing it this evening. The patient himself denies any chest pains dyspnea or palpitations his daughter is present as well during our discussions. He ambulates at home with a walker but does not ambulate much. RISK FACTORS for coronary artery disease, age, hypertension, hyperlipidemia, renal failure, gout, distant smoking history there is no diabetes or family history of early heart disease. PAST MEDICAL HISTORY: 1. As above. PAST SURGICAL HISTORY: Hernia surgery in the past, tonsillectomy, bypass surgery 2012, circumflex and obtuse marginal branch stenting 2015. MEDICATIONS: Aspirin, Plavix, half of digoxin 0.125 daily, Lipitor 20, Imdur 120 a day, Lasix 40 mg a day, clonidine 0.1 mg twice daily. ALLERGIES: Penicillin SOCIAL HISTORY: Patient lives with his denies smoking alcohol or drug use. FAMILY HISTORY: No history of premature coronary disease. REVIEW OF SYSTEMS: Not obtainable patient not very communicative. PHYSICAL EXAMINATION: Vital signs please see chart. HEENT; no JVD, no HJR, carotids 2 over 4+ without bruits. Chest: Clear to auscultation and percussion, no rales, wheezes or rhonchi. Cardiac: S4, S1, S2 with normal physiologic splitting, 1/6 systolic ejection murmur, no rub click or diastolic murmur noted. Abdominal: Bowel sounds positive, soft nontender, no abdominal bruit noted, no hepatosplenomegaly. Extremities: No cyanosis, clubbing, or edema. Negative Homans sign or palpable cords. Pulses: 2/4 pulses diffusely no bruits noted. ADDITIONAL DATA: CBC hemoglobin 9.9 hematocrit 31.4 white count 13.7 platelets 287,000, nadya ctrolytes potassium 6 BUN 63 creatinine 6.84, lactic acid was elevated now normal, troponin increased from 4.9 up to 6.7, PSA 7.1, digoxin level 0.6. Chest x-ray mild congestive heart failure poststernotomy calcified aortic knob. EKG sinus rhythm at [address] abnormality incomplete right bundle branch block anterior wall infarction age undetermined. Telemetry sinus rhythm no ectopy. ASSESSMENT: 1. Status post fall without syncope. 2. Chronic renal failure on dialysis with hyperkalemia this admission. 3. Coronary artery disease prior proximal LAD stenting followed by three-vessel bypass surgery 2012 and circumflex and obtuse marginal branch stenting with the third obtuse marginal branch 2.5 x 24 mm drug-eluting stent postdilated to 3, and 3 x 16 mm drug-eluting stent in the mid circumflex in 2015. 4. Probable acute non-ST elevation myocardial infarction. 5. Known ischemic cardia myopathy ejection fraction 30-35%. 6. Hypertension. 7. Hyperlipidemia. 8. Prior CVA left frontal lobe infarct on CT scan old. 9. Elevated PSA. 10. Anemianormocytic chronic. At this time the patient probably has had a non-ST elevation myocardial infarction but after discussions with the patient and his daughter would not proceed with repeat angiography at this time in the absence of symptoms and multiple other problems as well as significant frailty and age. We will continue aggressive medical therapy with statin, aspirin, Plavix, nitrates, and will add very low-dose beta-luciano and wean off clonidine. Will recheck 2D echocardiogram. PLAN: 1. Continue aggressive medical therapy but would not proceed with repeat angiography. 2. Repeat 2D echocardiogram in patient with known cardiomyopathy. 3. Continue dialysis to decrease fluid status and correct hyperkalemia. 4. Follow EKG and enzymes. 5. Start low-dose beta-luciano metoprolol 12.5 mg a day wean down clonidine. 6. Check fasting lipid panel. Discussed case with Dr. Merritt. ELIZA BRISCOE MD Jun 08, 2018 15:38
[2018-06-08] MEDS ORDERED: VANCOMYCIN 1 GM 250 ML IVPB ONE (16:00)
[2018-06-08] MEDS: ONDANSETRON 4 MG INJ IV PRN (16:18)
[2018-06-08] MEDS: ATORVASTATIN 20 MG TAB PO SCH (21:15)
[2018-06-08] MEDS: FAMOTIDINE 20 MG TAB PO SCH (21:16)
[2018-06-08] MEDS ORDERED: BACLOFEN 10 MG TAB PO PRN (22:30)
[2018-06-08] MEDS: morphine 4 MG/ML VIAL IV PRN (22:39)
[2018-06-08] MEDS: PRIMIDONE 50 MG TAB PO SCH (22:52)
[2018-06-09] VITALS (35 sets, daily range): BP systolic 93–184; BP diastolic 41–91; PULSE 64–111; RESP 15–28
[2018-06-09] MEDS: LORAZEPAM 0.5 MG TAB PO PRN (04:39)
[2018-06-09] MEDS ORDERED: FUROSEMIDE 20 MG INJ IV ONE (05:30)
[2018-06-09] MEDS: ALBUTEROL 0.083% (NEB) 2.5 MG/3 ML AMP HHN SCH ×4 (05:51→19:49)
[2018-06-09] MEDS: FUROSEMIDE 40 MG TAB PO SCH (09:00)
[2018-06-09] MEDS: ISOSORBIDE MONONITRATE(SR)60 MG TAB PO SCH (09:00)
[2018-06-09] MEDS: METOPROLOL 25 MG TAB PO SCH ×2 (09:00→21:00)
[2018-06-09] MEDS: CALCIUM CARBONATE 1.25 GM TAB PO SCH ×2 (09:00→21:48)
[2018-06-09] MEDS: ALLOPURINOL 300 MG TAB PO SCH (09:00)
[2018-06-09] MEDS: MULTIVIT/CA CARB/B CMPLX/FA TAB PO SCH (09:00)
[2018-06-09] MEDS: CELECOXIB 100 MG CAP PO SCH ×2 (09:00→21:40)
--- NOTE | 2018-06-09 10:58 | SIPON ---
Date/Time of Note Date/Time of Note DATE: 06/09/18 TIME: 10:56 Operative Report Preoperative Diagnosis ESRD, non functional L arm AVF Postoperative Diagnosis same Operation/Procedure Performed R femoral Ministerio catheter placement using ultrasound and fluoroscopic guidance Surgeon see signature line assistant coach none Anesthesia: other Estimated blood loss: minimal Transfusion Required none Specimen none Grafts/Implants none Complications none, verbal consent obtained from his TERRANCE FLYNN MD Jun 09, 2018 10:58
[2018-06-09] MEDS ORDERED: HEPARIN 1000 UNITS/ML 10 ML INJ ONE (11:29)
--- NOTE | 2018-06-09 12:35 | CONS ---
Date/Time of Note Date/Time of Note DATE: 06/09/18 TIME: 12:23 Assessment/Plan Assessment/Plan Assessment/Plan # ESRD Fistula nonfunctional Dialysis catheter now inserted by Dr. Slater HD planned for today and tomorrow # Acute systolic CHF Pulmonary edema HD today, as above ECHO pending # Elevated troponin Cardiology eval noted # Hematuria note appreciated CT result noted - atrophic kidneys with cysts Bladder irrigation Urine less bloody today # Anemia Monitor Hb GARTH # s/p fall with back pain LS spine series negative Result Diagram: 06/09/18 1004 06/09/18 0504 Results 24hrs Laboratory Tests Test 06/08/18 14:11 06/08/18 20:39 06/09/18 04:45 06/09/18 05:03 White Blood 13.7 H 13.4 H Count Red Blood Count 3.32 L 3.24 L Hemoglobin 9.9 L 9.3 L 9.5 L Hematocrit 31.4 L 28.9 L 29.8 L Mean 94.6 92.0 Corpuscular Volume Mean 29.8 29.3 Corpuscular Hemoglobin Mean 31.5 L 31.9 L Corpuscular Hemoglobin Conc ent Red Cell 14.0 13.9 Distribution Width Platelet Count 284 294 Mean Platelet 10.6 H 10.3 Volume Immature 0.400 0.700 H Granulocytes % Neutrophils % 89.1 H 86.9 H Lymphocytes % 2.3 L 3.1 L Monocytes % 5.3 5.8 Eosinophils % 2.5 3.0 Basophils % 0.4 0.5 Nucleated Red 0.0 0.0 Blood Cells % Immature 0.050 H 0.090 H Granulocytes # Neutrophils # 12.2 H 11.7 H Lymphocytes # 0.3 L 0.4 L Monocytes # 0.7 0.8 Eosinophils # 0.3 0.4 Basophils # 0.1 0.1 Nucleated Red 0.0 0.0 Blood Cells # Blood Gas Blood arterial Specimen Source Arterial Blood 06/09/2018 4:42 Date Drawn :35 AM Arterial Blood 7.383 pH (Temp corrected ) Arterial Blood 52.2 H pCO2 (Temp correct) Arterial Blood 64.2 L pO2 (Temp corrected ) Arterial Blood 30.4 H HCO3 Arterial Blood 4.4 H Base Excess Arterial Blood 90.8 L Oxygen Saturati on Dom Test N/A Arterial Blood Right Brachial Gas Puncture Site Arterial 0.7 Blood Carboxyhe moglobin Arterial Blood 0 Methemoglobin Blood Gas A-a 313.4 H O2 Differential Oxyhemoglobin 90.2 L Percent Blood Gas 37.0 Temperature Blood Gas MASK - SIMPLE Modality FiO2 61.0 Blood Gas AA Notified Whom Blood Gas 06/09/2018 4:57 Notified Time :16 AM Total Bilirubin 0.2 Direct 0.00 Bilirubin Indirect 0.2 Bilirubin Aspartate Amino 52 H Transf (AST/SGO T) Alanine 25 Aminotransferas e (ALT/SGPT) Alkaline 197 H Phosphatase Total Protein 6.2 Albumin 3.7 Digoxin Level 0.4 L Test 06/09/18 05:04 06/09/18 10:04 Sodium Level 136 Potassium Level 5.5 H Chloride Level 94 L Carbon Dioxide 32 H Level Anion Gap 10 Blood Urea 60 H Nitrogen Creatinine 6.52 H Est Glomerular Filtrat Rate mL/min Glucose Level 99 Calcium Level 9.0 Total Bilirubin 0.3 Direct 0.00 Bilirubin Indirect 0.3 Bilirubin Aspartate Amino 48 H Transf (AST/SGO T) Alanine 26 Aminotransferas e (ALT/SGPT) Alkaline 194 H Phosphatase B-Type 893539 H Natriuretic Peptide Total Protein 6.2 Albumin 3.6 Globulin 2.60 Albumin/Globuli 1.38 n Ratio Triglycerides 101 Level Cholesterol 84 L Level LDL 34 Cholesterol, Calculated HDL Cholesterol 30 L Cholesterol/HDL 2.8 Ratio Hemoglobin 9.5 L Hematocrit 29.0 L Consultation Date/Type/Reason Admit Date/Time Jun 06, 2018 at 08:52 Type of Consult Nephrology Hx of Present Illness Patient was transferred to ICU this am with hypoxemia. Dialysis was done for 2 hours last night and stopped after 2 hours due to AVF malfunction. Blood could not be returned. This am he developed SOB, chest XRay shows CHF. He is lethargic and difficult to arouse. Family is at the bedside. Past Medical History Medical History: congestive heart failure ([place] [employer] stage IV), coronary artery disease (Status post PCI with interventions prior to CABG in 2012), high cholesterol, hypertension, renal disease (End-stage renal disease nonoliguric on hemodialysis 3 days a week), other (Hyperuricemia; essential tremor; osteoarthritis;) Medications Current Medications Dextrose (D50w Syringe) ONCE PRN IV DECREASED GLUCOSE Last administered on 06/06/18at 08:18; Admin Dose 50 ML; Start 06/06/18 at 08:00 Acetaminophen (Tylenol Tab) 500 mg Q4H PRN PO MILD PAIN(1-3)OR ELEVATED TEMP; Start 06/06/18 at 11:00 Allopurinol (Zyloprim) 300 mg DAILY PO Last administered on 06/08/18 08:55; Admin Dose 300 MG; Start 06/07/18 at 09:00 Aspirin (Aspirin) 81 mg DAILY PO Last administered on 06/08/18 08:57; Admin Dose 81 MG; Start 06/06/18 at 11:00 Atorvastatin Calcium (Lipitor) 20 mg QHS PO Last administered on 06/08/18 2 1:15; Admin Dose 20 MG; Start 06/06/18 at 21:00 Calcium Carbonate (Oyster Shell Calcium) 0.5 gm BID PO Last administered on 06/08/18 21:15; Admin Dose 0.5 GM; Start 06/06/18 at 21:00 Clopidogrel Bisulfate (plaVIX) 75 mg DAILY PO Last administered on 06/08/18 08:56; Admin Dose 75 MG; Start 06/06/18 at 11:00 Isosorbide Mononitrate (Imdur) 120 mg DAILY PO Last administered on 06/08/18 08:54; Admin Dose 120 MG; Start 06/06/18 at 11:00 Metoprolol Tartrate (Lopressor) 25 mg BID PO Last administered on 06/08/18 08:57; Admin Dose 25 MG; Start 06/06/18 at 11:00 Primidone (Mysoline) 25 mg HS PO Last administered on 06/08/18 22:52; Admin Dose 25 MG; Start 06/06/18 at 21:00 Tramadol HCl (Ultram) 50 mg Q6H PRN PO PAIN Last administered on 06/07/18 18:07; Admin Dose 50 MG; Start 06/06/18 at 11:00 Vancomycin HCl (Vanco Iv Per Pharmacy) VANCOMYCIN PER PHARMACY PER PROTOCOL XX ; Start 06/06/18 at 13:30 Levofloxacin (Levaquin) 500 mg Q48H PO Last administered on 06/08/18 13:54; Admin Dose 500 MG; Start 06/08/18 at 13:30; Stop 06/14/18 at 13:29 IV Flush (NS 3 ml) 3 ml PER PROTOCOL IV ; Start 06/06/18 at 14:00 Lorazepam (Ativan) 0.5 mg Q8H PRN PO ANXIETY Last administered on 06/09/18 04:39; Admin Dose 0.5 MG; Start 06/06/18 at 14:00 Acetaminophen/ Hydrocodone Bitart ([place] (5/325)) 1 tab Q6H PRN PO PAIN LEVEL 4-6 Last administered on 06/08/18 04:02; Admin Dose 1 TAB; Start 06/06/18 at 14:00 Docusate Sodium (Colace) 100 mg Q12H PRN PO CONSTIPATION; Start 06/06/18 at 14:00 Famotidine (Pepcid) 20 mg Q24H PO Last administered on 06/08/18 21:16; Admin Dose 20 MG; Start 06/06/18 at 21:00 Digoxin (Digoxin) 0.0625 mg DAILY@1300 PO Last administered on 06/07/18 12:18; Admin Dose 0.0625 MG; Start 06/07/18 at 13:00 Furosemide (Lasix) 40 mg DAILY PO Last administered on 06/08/18 08:56; Admin Dose 40 MG; Start 06/07/18 at 09:00 Celecoxib (Celebrex) 100 mg BID PO Last administered on 06/08/18 21:17; Admin Dose 100 MG; Start 06/06/18 at 14:00 Epoetin Calos (Epogen (Esrd)) 10,000 units MoWeFr@17 SC Last administered on 06/07/18 17:54; Admin Dose 10,000 UNITS; Start 06/07/18 at 17:00 Multivit/Ca Carb/ B Cmplx/FA/Prenat (Fany-Jose Luis) 1 tab DAILY PO Last administered on 06/08/18 08:55; Admin Dose 1 TAB; Start 06/08/18 at 09:00 Ondansetron HCl (Zofran Inj) 4 mg Q8H PRN IV NAUSEA AND/OR VOMITING Last administered on 06/08/18 16:18; Admin Dose 4 MG; Start 06/08/18 at 16:30; Stop 06/10/18 at 23:00 Baclofen (Lioresal) 10 mg Q8H PRN PO Cramps Last administered on 12/29/18at 22:34; Admin Dose 10 MG; Start 06/08/18 at 22:30 Morphine Sulfate (morphine) 0.5 mg Q4 PRN IV SEVERE PAIN LEVEL 7-10 Last administered on 06/08/18at 22:39; Admin Dose 0.5 MG; Start 06/08/18 at 22:30 Albuterol (Proventil 0.083% (Neb)) 2.5 mg Q6H RESP THERAPY HHN Last administered on 06/09/18at 11:51; Admin Dose 2.5 MG; Start 06/09/18 at 05:15; Stop 06/10/18 at 05:00 Allergies: Coded Allergies: Penicillins (Unverified Allergy, Severe, ANAPHYLACTIC, 06/06/18) Past Surgical History Past Surgical Hx: coronary bypass surgery, other (Construction of AV fistula bilateral upper extremities; coronary artery bypass graft and transurethral resection of prostate. Recent surgery for skin cancer of the head, cataract surgery on one eye he does not remember which side) Social History Alcohol Use: none Smoking Status: Former smoker Drug Use: none Exam/Review of Systems Vital Signs Vitals Vital Signs Date Temp Pulse Resp B/P (MAP) Pulse Ox O2 O2 Flow FiO2 Time Delivery Rate 06/09/18 67 21 100 Non 15.0 11:51 Rebreather Mask 06/09/18 98.3 138/63 08:27 (88) Intake and Output 06/08/18 06/08/18 06/09/18 1515:00 23:00 07:00 IntakeIntake Total 300 ml 200 ml OutputOutput Total 700 ml 800 ml BalanceBalance -400 ml -600 ml Exam Neck: supple, jvd Respiratory: normal air movement Cardiovascular: regular rate and rhythm Gastrointestinal: soft Extremities: edema, other (LUE AVF no bruit heard) Medications Medications Current Medications Dextrose (D50w Syringe) ONCE PRN IV DECREASED GLUCOSE Last administered on 06/06/18at 08:18; Admin Dose 50 ML; Start 06/06/18 at 08:00 Acetaminophen (Tylenol Tab) 500 mg Q4H PRN PO MILD PAIN(1-3)OR ELEVATED TEMP; Start 06/06/18 at 11:00 Allopurinol (Zyloprim) 300 mg DAILY PO Last administered on 06/08/18at 08:55; Admin Dose 300 MG; Start 06/07/18 at 09:00 Aspirin (Aspirin) 81 mg DAILY PO Last administered on 06/08/18 08:57; Admin Dose 81 MG; Start 06/06/18 at 11:00 Atorvastatin Calcium (Lipitor) 20 mg QHS PO Last administered on 06/08/18 21:15; Admin Dose 20 MG; Start 06/06/18 at 21:00 Calcium Carbonate (Oyster Shell Calcium) 0.5 gm BID PO Last administered on 1 21:15; Admin Dose 0.5 GM; Start 06/06/18 at 21:00 Clopidogrel Bisulfate (plaVIX) 75 mg DAILY PO Last administered on 06/08/18 08:56; Admin Dose 75 MG; Start 06/06/18 at 11:00 Isosorbide Mononitrate (Imdur) 120 mg DAILY PO Last administered on 06/08/18 08:54; Admin Dose 120 MG; Start 06/06/18 at 11:00 Metoprolol Tartrate (Lopressor) 25 mg BID PO Last administered on 06/08/18 0 8:57; Admin Dose 25 MG; Start 06/06/18 at 11:00 Primidone (Mysoline) 25 mg HS PO Last administered on 06/08/18 22:52; Admin Dose 25 MG; Start 06/06/18 at 21:00 Tramadol HCl (Ultram) 50 mg Q6H PRN PO PAIN Last administered on 06/07/18 18:07; Admin Dose 50 MG; Start 06/06/18 at 11:00 Vancomycin HCl (Vanco Iv Per Pharmacy) VANCOMYCIN PER PHARMACY PER PROTOCOL XX ; Start 06/06/18 at 13:30 Levofloxacin (Levaquin) 500 mg Q48H PO Last administered on 06/08/18at 13:54; Admin Dose 500 MG; Start 06/08/18 at 13:30; Stop 06/14/18 at 13:29 IV Flush (NS 3 ml) 3 ml PER PROTOCOL IV ; Start 06/06/18 at 14:00 Lorazepam (Ativan) 0.5 mg Q8H PRN PO ANXIETY Last administered on 06/09/18 04:39; Admin Dose 0.5 MG; Start 06/06/18 at 14:00 Acetaminophen/ Hydrocodone Bitart ([place] (5/325)) 1 tab Q6H PRN PO PAIN LEVEL 4-6 Last administered on 06/08/18 04:02; Admin Dose 1 TAB; Start 06/06/18 at 14:00 Docusate Sodium (Colace) 100 mg Q12H PRN PO CONSTIPATION; Start 06/06/18 at 14:00 Famotidine (Pepcid) 20 mg Q24H PO Last administered on 06/08/18 21:16; Admin Dose 20 MG; Start 06/06/18 at 21:00 Digoxin (Digoxin) 0.0625 mg DAILY@1300 PO Last administered on 06/07/18 12:18; Admin Dose 0.0625 MG; Start 06/07/18 at 13:00 Furosemide (Lasix) 40 mg DAILY PO Last administered on 06/08/18 08:56; Admin Dose 40 MG; Start 06/07/18 at 09:00 Celecoxib (Celebrex) 100 mg BID PO Last administered on 06/08/18 21:17; Admin Dose 100 MG; Start 06/06/18 at 14:00 Epoetin Calos (Epogen (Esrd)) 10,000 units MoWeFr@17 SC Last administered on 06/07/18 17:54; Admin Dose 10,000 UNITS; Start 06/07/18 at 17:00 Multivit/Ca Carb/ B Cmplx/FA/Prenat (Fany-Jose Luis) 1 tab DAILY PO Last administered on 06/08/18 08:55; Admin Dose 1 TAB; Start 06/08/18 at 09:00 Ondansetron HCl (Zofran Inj) 4 mg Q8H PRN IV NAUSEA AND/OR VOMITING Last administered on 06/08/18 16:18; Admin Dose 4 MG; Start 06/08/18 at 16:30; Stop 06/10/18 at 23:00 Baclofen (Lioresal) 10 mg Q8H PRN PO Cramps Last administered on 06/08/18 22:34; Admin Dose 10 MG; Start 06/08/18 at 22:30 Morphine Sulfate (morphine) 0.5 mg Q4 PRN IV SEVERE PAIN LEVEL 7-10 Last administered on 06/08/18 22:39; Admin Dose 0.5 MG; Start 06/08/18 at 22:30 Albuterol (Proventil 0.083% (Neb)) 2.5 mg Q6H RESP THERAPY HHN Last administered on 06/09/18at 11:51; Admin Dose 2.5 MG; Start 06/09/18 at 05:15; Stop 06/10/18 at 05:00 FREEDOM NATH MD Jun 09, 2018 12:34
--- NOTE | 2018-06-09 13:25 | CONS ---
DATE OF ADMISSION: 06/06/2018 DATE OF CONSULTATION: 06/09/2018 REFERRING PHYSICIAN: Dr. Freedom Reyes. REASON FOR CONSULTATION: Nonfunctional left arm arteriovenous fistula. HISTORY OF PRESENT ILLNESS: This is a very pleasant 88-year-old gentleman. He is well known to me. I have known him for years. He has been on dialysis for many years. He has multiple failed accesse s in the right arm. He has a left upper arm AV fistula, it is a combination fistula graft. It is a fistula that I have revised. He has occluded central veins. He has been using his left arm fistula now for several years with intermittent issues. I did a fistulogram on him several months ago. I s aw him in the office recently. He had a good thrill. It was working well. Apparently several days a go he was on the toilet and he fell off in the middle of the night and laid there for hours and was b rought to the emergency room with severe hyperkalemia and has some elevated troponins. He is in CHF. He has been dialyzed through the fistula once or twice while he was here, but they went to dialyze him today and the nurse was unable to access it. Apparently last night they had trouble accessing it as well. PAST MEDICAL HISTORY: Again, significant for diabetes, hypertension, CHF. He has ischemic cardiomyo letitia He has an AICD. He had a CABG in 2012, has hypercholesterolemia, end-stage renal disease, has severe back problems. He has chronic back pain. MEDICATIONS: Consist of: 1. Dextra. 2. Zofran. 3. Tylenol. 4. Zyloprim. 5. Aspirin. 6. Lipitor. 7. Calcium. 8. Catapres. 9. Plavix. 10. Imdur. 11. Lopressor. 12. Mysoline. 13. Ultram. ALLERGIES: ALLERGIC TO PENICILLIN. PAST SURGICAL HISTORY: Significant for CABG and multiple bilateral arm access. The left upper arm ac cess is the functional one. FAMILY HISTORY: Significant for coronary artery disease. SOCIAL HISTORY: He is a former smoker, lives with his . She is very involved with his care. The re is no history of illicit drug use. He does not drink. PHYSICAL EXAMINATION GENERAL: He is very disoriented. He is short of breath. He is on 15 liters nonrebreather mask with sats in the 90s of about 90%. He was transferred down to the ICU for this. EXTREMITIES: He has 2+ carotid, radial and brachial pulses bilaterally. Left upper arm AV fistula i s patent, it has a pulsatile thrill but we have not been able to access it. LUNGS: Rhonchorous. ABDOMEN: Mildly obese, soft, nontender. MUSCULOSKELETAL: He has 2+ femoral pulses bilaterally. I do not feel popliteal, DP or PT pulses in either leg. He has chronic recurrent sort of venous stasis ulcers but none currently, they are all h ealed. LABORATORY DATA: This morning his hemoglobin is fine. His white count has actually been coming down . Potassium this morning is 5.5, creatinine 6.5. Troponins have been going up. They were 6.7 yeste rday, and his BMP is 126,000. IMPRESSION: 1. Congestive heart failure in the setting of end-stage renal disease. His left arm AV fistula feel s like it is patent to me. The dialysis nurses have been unable were unable to access it. So I am g oing to place a femoral Ministerio catheter, so he can have urgent dialysis. He has been transferred to the ICU for this. Once he is more stable, I will do a fistulogram and see if we can fix the left arm fistula. 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 We would have to put it back in the groin. Dictated By: TERRANCE ORDONEZ/DARLENE Conf#: [id number] DID#: [id number] CC: FREEDOM REYES MD; HAI URIBE MD; RUTH VAZQUEZ MD; DEMARCUS CHING MD; MELLO ONEILL MD;*EndCC*
--- NOTE | 2018-06-09 14:20 | PN ---
Date/Time of Note Date/Time of Note DATE: 06/09/18 TIME: 14:17 Assessment/Plan VTE Prophylaxis Risk score (from Ns)>0 risk: 8 SCD applied (from Ns): Yes Pharmacological prophylaxis: heparin Lines/Catheters IV Catheter Type (from Nrs): Saline Lock Urinary Cath still in place: Yes Reason Cath still needed: urinary retention Assessment/Plan Problems: (1) Systolic CHF with reduced left ventricular function, NYHA class 3 Status: Chronic Comment: Echocardiogram is being repeated at this time. At this time in disc ussion with cardiology he would actually be a significant benefit to be placed on an EKATERINA inhibitor or angiotensin II receptor luciano. Given his renal insufficiency this is actually much left of risk for hyperkalemia and would require us to coordinate to adjust his potassium removal at the time of dialysis. He will be dialyzed now and I will have the addressing machine operator make sure to make any adjustments of the week and then get him initiated on the medications. Please note he is in such severe fluid overload right now that I do not want to give it to him until after he has been dialyzed (2) End stage renal disease on dialysis Status: Chronic Comment: As per nephrology. Please note he is nonoliguric (3) Hypertension Status: Chronic Comment: Adequate control Qualifiers: Hypertension type: essential hypertension Qualified Codes: I10 - Essential (primary) hypertension (4) Hyperlipidemia Status: Chronic Comment: Adequate control Qualifiers: Hyperlipidemia type: pure hypercholesterolemia Qualified Codes: E78.00 - Pure hypercholesterolemia, unspecified (5) Hematuria Status: Acute Comment: As per urology. Receiving irrigation Qualifiers: Hematuria type: unspecified type Qualified Codes: R31.9 - Hematuria, unspecified (6) AVF (arteriovenous fistula) Comment: Function has a temporary Ministerio in place now Result Diagram: 06/09/18 1004 06/09/18 0504 Results 24hrs Laboratory Tests Test 06/08/18 20:39 06/09/18 04:45 06/09/18 05:03 06/09/18 05:04 Hemoglobin 9.3 L 9.5 L Hematocrit 28.9 L 29.8 L Blood Gas Blood arterial Specimen Source Arterial Blood 06/09/2018 4:42 Date Drawn :35 AM Arterial Blood 7.383 pH (Temp corrected ) Arterial Blood 52.2 H pCO2 (Temp correct) Arterial Blood 64.2 L pO2 (Temp corrected ) Arterial Blood 30.4 H HCO3 Arterial Blood 4.4 H Base Excess Arterial Blood 90.8 L Oxygen Saturati on Dom Test N/A Arterial Blood Right Brachial Gas Puncture Site Arterial 0.7 Blood Carboxyhe moglobin Arterial Blood 0 Methemoglobin Blood Gas A-a 313.4 H O2 Differential Oxyhemoglobin 90.2 L Percent Blood Gas 37.0 Temperature Blood Gas MASK - SIMPLE Modality FiO2 61.0 Blood Gas AA Notified Whom Blood Gas 06/09/2018 4:57 Notified Time :16 AM White Blood 13.4 H Count Red Blood Count 3.24 L Mean 92.0 Corpuscular Volume Mean 29.3 Corpuscular Hemoglobin Mean 31.9 L Corpuscular Hemoglobin Conc ent Red Cell 13.9 Distribution Width Platelet Count 294 Mean Platelet 10.3 Volume Immature 0.700 H Granulocytes % Neutrophils % 86.9 H Lymphocytes % 3.1 L Monocytes % 5.8 Eosinophils % 3.0 Basophils % 0.5 Nucleated Red 0.0 Blood Cells % Immature 0.090 H Granulocytes # Neutrophils # 11.7 H Lymphocytes # 0.4 L Monocytes # 0.8 Eosinophils # 0.4 Basophils # 0.1 Nucleated Red 0.0 Blood Cells # Total Bilirubin 0.2 0.3 Direct 0.00 0.00 Bilirubin Indirect 0.2 0.3 Bilirubin Aspartate Amino 52 H 48 H Transf (AST/SGO T) Alanine 25 26 Aminotransferas e (ALT/SGPT) Alkaline 197 H 194 H Phosphatase Total Protein 6.2 6.2 Albumin 3.7 3.6 Digoxin Level 0.4 L Sodium Level 136 Potassium Level 5.5 H Chloride Level 94 L Carbon Dioxide 32 H Level Anion Gap 10 Blood Urea 60 H Nitrogen Creatinine 6.52 H Est Glomerular Filtrat Rate mL/min Glucose Level 99 Calcium Level 9.0 B-Type 061078 H Natriuretic Peptide Globulin 2.60 Albumin/Globuli 1.38 n Ratio Triglycerides 101 Level Cholesterol 84 L Level LDL 34 Cholesterol, Calculated HDL Cholesterol 30 L Cholesterol/HDL 2.8 Ratio Test 06/09/18 10:04 Hemoglobin 9.5 L Hematocrit 29.0 L Subjective 24 Hr Interval Summary Free Text/Dictation Patient today is very confused. Please note he did not have full dialysis yesterday and did not have a good night sleep. Constitutional: no complaints (No fevers chills or sweats) Respiratory: shortness of breath Cardiovascular: no complaints Gastrointestinal: no complaints Exam/Review of Systems Vital Signs Vitals Vital Signs Date Temp Pulse Resp B/P (MAP) Pulse Ox O2 O2 Flow FiO2 Time Delivery Rate 06/09/18 64 12:21 06/09/18 21 100 Non 15.0 11:51 Rebreather Mask 06/09/18 98.3 138/63 08:27 (88) Intake and Output 06/08/18 06/08/18 06/09/18 1515:00 23:00 07:00 IntakeIntake Total 300 ml 200 ml OutputOutput Total 700 ml 800 ml BalanceBalance -400 ml -600 ml Exam Oriented to person Constitutional: alert Respiratory: normal air movement, crackles/rales (Bilateral crackles) Cardiovascular: regular rate and rhythm, nl pulses, S3 Gastrointestinal: soft, nl liver, spleen Medications Medications Current Medications Dextrose (D50w Syringe) ONCE PRN IV DECREASED GLUCOSE Last administered on 06/06/18at 08:18; Admin Dose 50 ML; Start 06/06/18 at 08:00 Acetaminophen (Tylenol Tab) 500 mg Q4H PRN PO MILD PAIN(1-3)OR ELEVATED TEMP; Start 06/06/18 at 11:00 Allopurinol (Zyloprim) 300 mg DAILY PO Last administered on 06/08/18at 08:55; Admin Dose 300 MG; Start 06/07/18 at 09:00 Aspirin (Aspirin) 81 mg DAILY PO Last administered on 06/08/18 08:57; Admin Dose 81 MG; Start 06/06/18 at 11:00 Atorvastatin Calcium (Lipitor) 20 mg QHS PO Last administered on 06/08/18at 21:15; Admin Dose 20 MG; Start 06/06/18 at 21:00 Calcium Carbonate (Oyster Shell Calcium) 0.5 gm BID PO Last administered on 06/08/18 21:15; Admin Dose 0.5 GM; Start 06/06/18 at 21:00 Clopidogrel Bisulfate (plaVIX) 75 mg DAILY PO Last administered on 06/08/18 08:56; Admin Dose 75 MG; Start 06/06/18 at 11:00 Isosorbide Mononitrate (Imdur) 120 mg DAILY PO Last administered on 06/08/18 08:54; Admin Dose 120 MG; Start 06/06/18 at 11:00 Metoprolol Tartrate (Lopressor) 25 mg BID PO Last administered on 06/08/18at 08:57; Admin Dose 25 MG; Start 06/06/18 at 11:00 Primidone (Mysoline) 25 mg HS PO Last administered on 06/08/18at 22:52; Admin Dose 25 MG; Start 06/06/18 at 21:00 Tramadol HCl (Ultram) 50 mg Q6H PRN PO PAIN Last administered on 06/07/18at 18:07; Admin Dose 50 MG; Start 06/06/18 at 11:00 Vancomycin HCl (Vanco Iv Per Pharmacy) VANCOMYCIN PER PHARMACY PER PROTOCOL XX ; Start 06/06/18 at 13:30 Levofloxacin (Levaquin) 500 mg Q48H PO Last administered on 06/08/18at 13:54; A dmin Dose 500 MG; Start 06/08/18 at 13:30; Stop 06/14/18 at 13:29 IV Flush (NS 3 ml) 3 ml PER PROTOCOL IV ; Start 06/06/18 at 14:00 Lorazepam (Ativan) 0.5 mg Q8H PRN PO ANXIETY Last administered on 06/09/18at 04:39; Admin Dose 0.5 MG; Start 06/06/18 at 14:00 Acetaminophen/ Hydrocodone Bitart ([place] (5/325)) 1 tab Q6H PRN PO PAIN LEVEL 4-6 Last administered on 06/08/18at 04:02; Admin Dose 1 TAB; Start 06/06/18 at 14:00 Docusate Sodium (Colace) 100 mg Q12H PRN PO CONSTIPATION; Start 06/06/18 at 14:00 Famotidine (Pepcid) 20 mg Q24H PO Last administered on 06/08/18at 21:16; Admin Dose 20 MG; Start 06/06/18 at 21:00 Digoxin (Digoxin) 0.0625 mg DAILY@1300 PO Last administered on 06/07/18at 12:18; Admin Dose 0.0625 MG; Start 06/07/18 at 13:00 Furosemide (Lasix) 40 mg DAILY PO Last administered on 06/08/18at 08:56; Admin Dose 40 MG; Start 06/07/18 at 09:00 Celecoxib (Celebrex) 100 mg BID PO Last administered on 06/08/18 21:17; Admin Dose 100 MG; Start 06/06/18 at 14:00 Epoetin Calos (Epogen (Esrd)) 10,000 units MoWeFr@17 SC Last administered on 06/07/18 17:54; Admin Dose 10,000 UNITS; Start 06/07/18 at 17:00 Multivit/Ca Carb/ B Cmplx/FA/Prenat (Fany-Jose Luis) 1 tab DAILY PO Last administered on 06/08/18 08:55; Admin Dose 1 TAB; Start 06/08/18 at 09:00 Ondansetron HCl (Zofran Inj) 4 mg Q8H PRN IV NAUSEA AND/OR VOMITING Last administered on 06/08/18 16:18; Admin Dose 4 MG; Start 06/08/18 at 16:30; Stop 06/10/18 at 23:00 Baclofen (Lioresal) 10 mg Q8H PRN PO Cramps Last administered on 06/08/18 22:34; Admin Dose 10 MG; Start 06/08/18 at 22:30 Morphine Sulfate (morphine) 0.5 mg Q4 PRN IV SEVERE PAIN LEVEL 7-10 Last administered on 06/08/18 22:39; Admin Dose 0.5 MG; Start 06/08/18 at 22:30 Albuterol (Proventil 0.083% (Neb)) 2.5 mg Q6H RESP THERAPY HHN Last administered on 06/09/18at 11:51; Admin Dose 2.5 MG; Start 06/09/18 at 05:15; Stop 06/10/18 at 05:00 RUTH VAZQUEZ MD Jun 09, 2018 14:20
--- NOTE | 2018-06-09 14:26 | PN ---
Date/Time of Note Date/Time of Note DATE: 06/09/18 TIME: 14:17 SUBJECTIVE: Patient transferred to the ICU with hypoxia and confusion, unable to dialyze yesterday due to fistula not working and temporary fistula placed today. The patient is still somewhat confused but denies any chest pains dyspnea palpitations his family is present at bedside. Chart, medications and laboratory studies reviewed. ROS: Unable to obtain with patient somewhat confused. OBJECTIVE: Vital signs please see chart. HEENT; positive JVD, positive HJR, carotids 2 over 4+ without bruits. Chest: Clear to auscultation and percussion, no rales, wheezes or rhonchi. Difficult exam patient restrained Cardiac: S4, S1, S2 with normal physiologic splitting, 1/6 systolic ejection m urmur, no rub click or diastolic murmur noted. Abdominal: Bowel sounds positive, soft nontender, no abdominal bruit noted, no hepatosplenomegaly. Extremities: No cyanosis, clubbing, or edema. Negative Homans sign or palpable cords. Fistula in left arm. Temporary dialysis catheter placed in right groin. Pulses: 2/4 pulses diffusely no bruits noted. LABORATORY STUDIES; White count 13.4, hemoglobin 9.5 hematocrit 29.8 platelets 297,000, electrolytes potassium 5.5 bun 60 creatinine 6.5 total cholesterol 84, triglycerides 101, LDL 34, HDL 30, BNP over 12,000. Chest x-ray revealed increased congestive heart failure, poststernotomy calcified aortic knob no wide mediastinum. EKG reviewed by myself revealed sinus rhythm at 80 with first-degree block left atrial enlargement anterior wall infarction age undetermined, left axis deviation left anterior hemiblock T wave inversions inferolaterally possibly consistent with ischemia no acute changes. ASSESSMENT: 1. Ischemic cardiomyopathy last echocardiogram December 2017 ejection fraction 20- 25 percent. 2. Coronary artery disease proximal LAD Promus stenting 11/21 followed by three- vessel bypass 05/23 followed by obtuse marginal and circumflex drug-eluting s tents Promus in 2015. 3. CVA/TIA 2011. 4. Hyperkalemia this admission. 5. Chronic renal failure on dialysis. 6. Congestive heart failure volume overload patient missed dialysis acute on chronic systolic heart failure. 7. Gout. 8. Trace aortic regurgitation on prior echocardiogram. 9. Probable repeat acute non-ST elevation myocardial infarction this admission. At this time reviewed patient's prior records and patient has underlying significant ischemic cardiomyopathy. Would benefit from EKATERINA inhibitor with change in potassium bath for his dialysis once stabilized. Discussed with family once again and they do not want any interventions and will continue medical therapy and patient with recent probable non-ST elevation myocardial infarction. PLAN: 1. Urgent dialysis being done today with repeat one tomorrow for volume overload. 2. Consider institution of EKATERINA inhibitor adjust potassium bath and dialysis and patient with significant ischemic cardiomyopathy. Continue nitrates, beta- luciano, statin, aspirin and Plavix with multiple drug-eluting stents in place. 3. Continue medical therapy no interventions per patient and his family after discussions. 4. We will check 2D echocardiogram although as previously noted significant cardiomyopathy noted in December 2017 echo. ELIZA BRISCOE MD Jun 09, 2018 14:26
[2018-06-09] MEDS: ASPIRIN 81 MG TAB PO SCH (14:58)
[2018-06-09] MEDS: CLOPIDOGREL 75 MG TAB PO SCH (14:58)
[2018-06-09] MEDS: DIGOXIN 0.125 MG TAB PO SCH (14:58)
--- NOTE | 2018-06-09 16:05 | CONS ---
Date/Time of Note Date/Time of Note DATE: 06/09/18 TIME: 16:02 Consult Date/Type/Reason Admit Date/Time Jun 06, 2018 at 08:52 Initial Consult Date 06/08/18 Type of Consultation: Urology Reason for Consultation Gross hematuria Requesting Provider: RUTH VAZQUEZ MD Subjective Patient is confused and is in the intensive care unit and about to get his dialysis. Objective Vital Signs Date Temp Pulse Resp B/P (MAP) Pulse Ox O2 O2 Flow FiO2 Time Delivery Rate 06/09/18 77 20 Nasal 20.0 14:52 Cannula 06/09/18 150/63 100 14:00 (92) 06/09/18 98.4 12:00 Intake and Output 06/08/18 06/08/18 06/09/18 1515:00 23:00 07:00 IntakeIntake Total 300 ml 200 ml OutputOutput Total 700 ml 800 ml BalanceBalance -400 ml -600 ml Exam The Llamas catheter is draining blood tinged urine with the continuous bladder irrigation. The bladder is not distended and there is no urinary retention. Results/Medications Result Diagram: 06/09/18 1004 06/09/18 0504 Results 24 hrs Laboratory Tests Test 06/08/18 20:39 06/09/18 04:45 06/09/18 05:03 06/09/18 05:04 Hemoglobin 9.3 L 9.5 L Hematocrit 28.9 L 29.8 L Blood Gas Blood arterial Specimen Source Arterial Blood 06/09/2018 4:42 Date Drawn :35 AM Arterial Blood 7.383 pH (Temp corrected ) Arterial Blood 52.2 H pCO2 (Temp correct) Arterial Blood 64.2 L pO2 (Temp corrected ) Arterial Blood 30.4 H HCO3 Arterial Blood 4.4 H Base Excess Arterial Blood 90.8 L Oxygen Saturati on Dom Test N/A Arterial Blood Right Brachial Gas Puncture Site Arterial 0.7 Blood Carboxyhe moglobin Arterial Blood 0 Methemoglobin Blood Gas A-a 313.4 H O2 Differential Oxyhemoglobin 90.2 L Percent Blood Gas 37.0 Temperature Blood Gas MASK - SIMPLE Modality FiO2 61.0 Blood Gas AA Notified Whom Blood Gas 06/09/2018 4:57 Notified Time :16 AM White Blood 13.4 H Count Red Blood Count 3.24 L Mean 92.0 Corpuscular Volume Mean 29.3 Corpuscular Hemoglobin Mean 31.9 L Corpuscular Hemoglobin Conc ent Red Cell 13.9 Distribution Width Platelet Count 294 Mean Platelet 10.3 Volume Immature 0.700 H Granulocytes % Neutrophils % 86.9 H Lymphocytes % 3.1 L Monocytes % 5.8 Eosinophils % 3.0 Basophils % 0.5 Nucleated Red 0.0 Blood Cells % Immature 0.090 H Granulocytes # Neutrophils # 11.7 H Lymphocytes # 0.4 L Monocytes # 0.8 Eosinophils # 0.4 Basophils # 0.1 Nucleated Red 0.0 Blood Cells # Total Bilirubin 0.2 0.3 Direct 0.00 0.00 Bilirubin Indirect 0.2 0.3 Bilirubin Aspartate Amino 52 H 48 H Transf (AST/SGO T) Alanine 25 26 Aminotransferas e (ALT/SGPT) Alkaline 197 H 194 H Phosphatase Total Protein 6.2 6.2 Albumin 3.7 3.6 Digoxin Level 0.4 L Sodium Level 136 Potassium Level 5.5 H Chloride Level 94 L Carbon Dioxide 32 H Level Anion Gap 10 Blood Urea 60 H Nitrogen Creatinine 6.52 H Est Glomerular Filtrat Rate mL/min Glucose Level 99 Calcium Level 9.0 B-Type 316075 H Natriuretic Peptide Globulin 2.60 Albumin/Globuli 1.38 n Ratio Triglycerides 101 Level Cholesterol 84 L Level LDL 34 Cholesterol, Calculated HDL Cholesterol 30 L Cholesterol/HDL 2.8 Ratio Test 06/09/18 10:04 Hemoglobin 9.5 L Hematocrit 29.0 L Medications Current Medications Dextrose (D50w Syringe) ONCE PRN IV DECREASED GLUCOSE Last administered on 06/06/18at 08:18; Admin Dose 50 ML; Start 06/06/18 at 08:00 Acetaminophen (Tylenol Tab) 500 mg Q4H PRN PO MILD PAIN(1-3)OR ELEVATED TEMP Last administered on 06/09/18at 15:06; Admin Dose 500 MG; Start 06/06/18 at 11:00 Allopurinol (Zyloprim) 300 mg DAILY PO Last administered on 06/08/18at 08:55; Admin Dose 300 MG; Start 06/07/18 at 09:00 Aspirin (Aspirin) 81 mg DAILY PO Last administered on 06/09/18at 14:58; Admin Dose 81 MG; Start 06/06/18 at 11:00 Atorvastatin Calcium (Lipitor) 20 mg QHS PO Last administered on 06/08/18 21:15; Admin Dose 20 MG; Start 06/06/18 at 21:00 Calcium Carbonate (Oyster Shell Calcium) 0.5 gm BID PO Last administered on 06/08/18 21:15; Admin Dose 0.5 GM; Start 06/06/18 at 21:00 Clopidogrel Bisulfate (plaVIX) 75 mg DAILY PO Last administered on 06/09/18 14:58; Admin Dose 75 MG; Start 06/06/18 at 11:00 Isosorbide Mononitrate (Imdur) 120 mg DAILY PO Last administered on 06/08/18 08:54; Admin Dose 120 MG; Start 06/06/18 at 11:00 Metoprolol Tartrate (Lopressor) 25 mg BID PO Last administered on 06/08/18 08:57; Admin Dose 25 MG; Start 06/06/18 at 11:00 Primidone (Mysoline) 25 mg HS PO Last administered on 06/08/18 22:52; Admin Dose 25 MG; Start 06/06/18 at 21:00 Tramadol HCl (Ultram) 50 mg Q6H PRN PO PAIN Last administered on 06/07/18 18:07; Admin Dose 50 MG; Start 06/06/18 at 11:00 Vancomycin HCl (Vanco Iv Per Pharmacy) VANCOMYCIN PER PHARMACY PER PROTOCOL XX ; Start 06/06/18 at 13:30 Levofloxacin (Levaquin) 500 mg Q48H PO Last administered on 06/08/18 13:54; Admin Dose 500 MG; Start 06/08/18 at 13:30; Stop 06/14/18 at 13:29 IV Flush (NS 3 ml) 3 ml PER PROTOCOL IV ; Start 06/06/18 at 14:00 Lorazepam (Ativan) 0.5 mg Q8H PRN PO ANXIETY Last administered on 06/09/18 04:39; Admin Dose 0.5 MG; Start 06/06/18 at 14:00 Acetaminophen/ Hydrocodone Bitart ([place] (5/325)) 1 tab Q6H PRN PO PAIN LEVEL 4-6 Last administered on 06/08/18 04:02; Admin Dose 1 TAB; Start 06/06/18 at 14:00 Docusate Sodium (Colace) 100 mg Q12H PRN PO CONSTIPATION; Start 06/06/18 at 14:00 Famotidine (Pepcid) 20 mg Q24H PO Last administered on 06/08/18 21:16; Admin Dose 20 MG; Start 06/06/18 at 21:00 Digoxin (Digoxin) 0.0625 mg DAILY@1300 PO Last administered on 06/09/18 14:58; Admin Dose 0.0625 MG; Start 06/07/18 at 13:00 Furosemide (Lasix) 40 mg DAILY PO Last administered on 06/08/18 08:56; Admin Dose 40 MG; Start 06/07/18 at 09:00 Celecoxib (Celebrex) 100 mg BID PO Last administered on 06/08/18 21:17; Admin Dose 100 MG; Start 06/06/18 at 14:00 Epoetin Calos (Epogen (Esrd)) 10,000 units MoWeFr@17 SC Last administered on 06/07/18 17:54; Admin Dose 10,000 UNITS; Start 06/07/18 at 17:00 Multivit/Ca Carb/ B Cmplx/FA/Prenat (Fany-Jose Luis) 1 tab DAILY PO Last administered on 06/08/18 08:55; Admin Dose 1 TAB; Start 06/08/18 at 09:00 Ondansetron HCl (Zofran Inj) 4 mg Q8H PRN IV NAUSEA AND/OR VOMITING Last administered on 06/08/18 16:18; Admin Dose 4 MG; Start 06/08/18 at 16:30; Stop 06/10/18 at 23:00 Baclofen (Lioresal) 10 mg Q8H PRN PO Cramps Last administered on 06/08/18 22:34; Admin Dose 10 MG; Start 06/08/18 at 22:30 Morphine Sulfate (morphine) 0.5 mg Q4 PRN IV SEVERE PAIN LEVEL 7-10 Last administered on 06/08/18 22:39; Admin Dose 0.5 MG; Start 06/08/18 at 22:30 Albuterol (Proventil 0.083% (Neb)) 2.5 mg Q6H RESP THERAPY HHN Last administered on 06/09/18 14:52; Admin Dose 2.5 MG; Start 06/09/18 at 05:15; Stop 06/10/18 at 05:00 Assessment/Plan Chief Complaint/Hosp Course 88-year-old male had gone to the bathroom both for stool and urination. He was trying to get off of the toilet and slid and actually got himself trapped between the toilet and the bathtub. He did not have head trauma and he did not have loss of consciousness. He did not have chest pain or palpitations. He was stuck in that position for minimum of 2 hours before finally requesting external help. He was brought to the emergency room and admitted. He is on hemodialysis and went to the emergency room try to get a urine specimen from him he was not able to urinate and they did a straight cath on him and since then he has had gross hematuria. Therefore a urological consultation was requested. The patient has been on hemodialysis for about 5 years. He still makes urine and urinates once at night and about 4 times a day. He has undergone a transurethral resection of the prostate when he was 59 years old. Because of the gross hematuria a 24 [place] Llamas catheter, three-way with a 30 cc balloon was inserted on 06/08/2018 and the bladder was irrigated thoroughly and the blood clots were removed. Patient was started on continuous bladder irrigation. The return from the irrigation is clear to clear pink. The patient had elevated troponin yesterday and was transferred to the intensive care unit. He is on Plavix and aspirin and apparently he needs to stay on them because of his heart problems. Therefore for the time being we will continue the bladder irrigation and hope that we will keep the bladder clear. If there is any need for transfusions we will have to transfuse him. HAI URIBE MD Jun 09, 2018 16:05
[2018-06-09] MEDS: HEPARIN 1000 UNITS/ML 10 ML INJ CATHETER PRN (18:08)
[2018-06-09] MEDS: morphine 4 MG/ML VIAL IV PRN ×2 (18:09→22:43)
[2018-06-09] MEDS: PRIMIDONE 50 MG TAB PO SCH (21:00)
[2018-06-09] MEDS ORDERED: PHENYLephrine 20MG IN 250 ML 250 ML IV SCH (21:30)
[2018-06-09] MEDS: FAMOTIDINE 20 MG TAB PO SCH (21:48)
[2018-06-09] MEDS: ATORVASTATIN 20 MG TAB PO SCH (21:48)
[2018-06-10] VITALS (20 sets, daily range): BP systolic 98–200; BP diastolic 43–105; PULSE 59–106; RESP 13–23
[2018-06-10] MEDS: ALBUTEROL 0.083% (NEB) 2.5 MG/3 ML AMP HHN SCH (01:44)
[2018-06-10] MEDS: ONDANSETRON 4 MG INJ IV PRN (03:07)
[2018-06-10] MEDS: morphine 4 MG/ML VIAL IV PRN (06:36)
--- NOTE | 2018-06-10 08:08 | CONS ---
Date/Time of Note Date/Time of Note DATE: 06/10/18 TIME: 08:06 Consult Date/Type/Reason Admit Date/Time Jun 06, 2018 at 08:52 Initial Consult Date 06/08/18 Type of Consultation: Urology Reason for Consultation Gross hematuria Requesting Provider: RUTH VAZQUEZ MD Subjective Patient remains in the intensive care unit. He still has the continuous bladder irrigation. Objective Vital Signs Date Temp Pulse Resp B/P (MAP) Pulse Ox O2 O2 Flow FiO2 Time Delivery Rate 06/10/18 71 19 131/44 95 05:00 (73) 06/10/18 35 04:40 06/10/18 97.8 High Flow 04:00 06/10/18 20.0 01:44 Intake and Output 06/09/18 06/09/18 06/10/18 1515:00 23:00 07:00 IntakeIntake Total 200 ml 8600 ml 96513 ml OutputOutput Total 44757 ml 96019 ml BalanceBalance 200 ml -2600 ml -780 ml Exam The Llamas catheter is draining well. The returned from a the irrigation is clear to clear pink and that depends on how fast irrigation is running. Results/Medications Result Diagram: 06/10/18 0439 06/10/18 0439 Results 24 hrs Laboratory Tests Test 06/09/18 10:04 06/09/18 19:49 06/10/18 04:31 06/10/18 04:39 Hemoglobin 9.5 L 9.7 L 8.8 L Hematocrit 29.0 L 29.7 L 27.8 L B-Type 631558 H Natriuretic Peptide White Blood 11.0 H Count Red Blood Count 2.96 L Mean Corpuscular 93.9 Volume Mean Corpuscular 29.7 Hemoglobin Mean Corpuscular 31.7 L Hemoglobin Fawn nt Red Cell 13.7 Distribution Width Platelet Count 248 Mean Platelet 9.9 Volume Immature 0.500 H Granulocytes % Neutrophils % 86.1 H Lymphocytes % 3.0 L Monocytes % 8.0 Eosinophils % 1.7 Basophils % 0.7 Nucleated Red 0.0 Blood Cells % Immature 0.050 H Granulocytes # Neutrophils # 9.4 H Lymphocytes # 0.3 L Monocytes # 0.9 Eosinophils # 0.2 Basophils # 0.1 Nucleated Red 0.0 Blood Cells # Sodium Level 136 Potassium Level 4.9 Chloride Level 95 L Carbon Dioxide 29 Level Anion Gap 12 Blood Urea 37 #H Nitrogen Creatinine 4.73 #H Est Glomerular Filtrat Rate mL/min Glucose Level 82 Calcium Level 8.8 Total Bilirubin 0.4 Direct Bilirubin 0.00 Indirect 0.4 Bilirubin Aspartate Amino 48 H Transf (AST/SGOT ) Alanine 23 Aminotransferase (ALT/SGPT) Alkaline 175 H Phosphatase Total Protein 5.8 L Albumin 3.4 Globulin 2.40 Albumin/Globulin 1.41 Ratio Medications Current Medications Dextrose (D50w Syringe) ONCE PRN IV DECREASED GLUCOSE Last administered on 06/06/18 08:18; Admin Dose 50 ML; Start 06/06/18 at 08:00 Acetaminophen (Tylenol Tab) 500 mg Q4H PRN PO MILD PAIN(1-3)OR ELEVATED TEMP Last administered on 06/09/18 15:06; Admin Dose 500 MG; Start 06/06/18 at 11:00 Allopurinol (Zyloprim) 300 mg DAILY PO Last administered on 06/08/18 08:55; Admin Dose 300 MG; Start 06/07/18 at 09:00 Aspirin (Aspirin) 81 mg DAILY PO Last administered on 06/09/18 14:58; Admin Dose 81 MG; Start 06/06/18 at 11:00 Atorvastatin Calcium (Lipitor) 20 mg QHS PO Last administered on 06/09/18 21:48; Admin Dose 20 MG; Start 06/06/18 at 21:00 Calcium Carbonate (Oyster Shell Calcium) 0.5 gm BID PO Last administered on 06/09/18 21:48; Admin Dose 0.5 GM; Start 06/06/18 at 21:00 Clopidogrel Bisulfate (plaVIX) 75 mg DAILY PO Last administered on 06/09/18 14:58; Admin Dose 75 MG; Start 06/06/18 at 11:00 Isosorbide Mononitrate (Imdur) 120 mg DAILY PO Last administered on 06/08/18 08:54; Admin Dose 120 MG; Start 06/06/18 at 11:00 Metoprolol Tartrate (Lopressor) 25 mg BID PO Last administered on 06/08/18 08:57; Admin Dose 25 MG; Start 06/06/18 at 11:00 Primidone (Mysoline) 25 mg HS PO Last administered on 06/08/18 22:52; Admin Dose 25 MG; Start 06/06/18 at 21:00 Tramadol HCl (Ultram) 50 mg Q6H PRN PO PAIN Last administered on 06/07/18at 18:07; Admin Dose 50 MG; Start 06/06/18 at 11:00 Vancomycin HCl (Vanco Iv Per Pharmacy) VANCOMYCIN PER PHARMACY PER PROTOCOL XX ; Start 06/06/18 at 13:30 Levofloxacin (Levaquin) 500 mg Q48H PO Last administered on 06/08/18 13:54; Admin Dose 500 MG; Start 06/08/18 at 13:30; Stop 06/14/18 at 13:29 IV Flush (NS 3 ml) 3 ml PER PROTOCOL IV ; Start 06/06/18 at 14:00 Lorazepam (Ativan) 0.5 mg Q8H PRN PO ANXIETY Last administered on 06/09/18 04:39; Admin Dose 0.5 MG; Start 06/06/18 at 14:00 Acetaminophen/ Hydrocodone Bitart ([place] (5/325)) 1 tab Q6H PRN PO PAIN LEVEL 4-6 Last administered on 06/08/18at 04:02; Admin Dose 1 TAB; Start 06/06/18 at 14:00 Docusate Sodium (Colace) 100 mg Q12H PRN PO CONSTIPATION; Start 06/06/18 at 14:00 Famotidine (Pepcid) 20 mg Q24H PO Last administered on 06/09/18at 21:48; Admin Dose 20 MG; Start 06/06/18 at 21:00 Digoxin (Digoxin) 0.0625 mg DAILY@1300 PO Last administered on 06/09/18 14:58; Admin Dose 0.0625 MG; Start 06/07/18 at 13:00 Furosemide (Lasix) 40 mg DAILY PO Last administered on 06/08/18 08:56; Admin Dose 40 MG; Start 06/07/18 at 09:00 Celecoxib (Celebrex) 100 mg BID PO Last administered on 06/09/18 21:40; Admin Dose 100 MG; Start 06/06/18 at 14:00 Epoetin Calos (Epogen (Esrd)) 10,000 units MoWeFr@17 SC Last administered on 06/07/18at 17:54; Admin Dose 10,000 UNITS; Start 06/07/18 at 17:00 Multivit/Ca Carb/ B Cmplx/FA/Prenat (Fany-Jose Luis) 1 tab DAILY PO Last administered on 06/08/18at 08:55; Admin Dose 1 TAB; Start 06/08/18 at 09:00 Ondansetron HCl (Zofran Inj) 4 mg Q8H PRN IV NAUSEA AND/OR VOMITING Last administered on 06/10/18 03:07; Admin Dose 4 MG; Start 06/08/18 at 16:30; Stop 06/10/18 at 23:00 Baclofen (Lioresal) 10 mg Q8H PRN PO Cramps Last administered on 06/08/18 22:34; Admin Dose 10 MG; Start 06/08/18 at 22:30 Morphine Sulfate (morphine) 0.5 mg Q4 PRN IV SEVERE PAIN LEVEL 7-10 Last administered on 06/10/18 06:36; Admin Dose 0.5 MG; Start 06/08/18 at 22:30 Heparin Sodium (Porcine) (Heparin (1000 Units/ml)) 2,800 unit PRN PRN CATHETER DIALYSIS Last administered on 06/09/18at 18:08; Admin Dose 2,800 UNIT; Start 06/09/18 at 16:30 Phenylephrine HCl 250 ml @ 75 mls/hr TITRATE IV ; Start 06/09/18 at 21:30 Assessment/Plan Chief Complaint/Hosp Course 88-year-old male had gone to the bathroom both for stool and urination. He was trying to get off of the toilet and slid and actually got himself trapped between the toilet and the bathtub. He did not have head trauma and he did not have loss of consciousness. He did not have chest pain or palpitations. He was stuck in that position for minimum of 2 hours before finally requesting external help. He was brought to the emergency room and admitted. He is on hemodialysis and went to the emergency room try to get a urine specimen from him he was not able to urinate and they did a straight cath on him and since then he has had gross hematuria. Therefore a urological cons ultation was requested. The patient has been on hemodialysis for about 5 years. He still makes urine and urinates once at night and about 4 times a day. He has undergone a transurethral resection of the prostate when he was 59 years old. Because of the gross hematuria a 24 Frisian Llamas catheter, three-way with a 30 cc balloon was inserted on 06/08/2018 and the bladder was irrigated thoroughly and the blood clots were removed. Patient was started on continuous bladder irrigation. The return from the irrigation is clear to clear pink depending on how fast irrigation is running. The patient had elevated troponin . He is on Plavix and aspirin and apparently he needs to stay on them because of his heart problems. Therefore for the time being we will continue the bladder irrigation and hope that we will keep the bladder clear. If there is any need for transfusions we will have to transfuse him. HAI URIBE MD Jun 10, 2018 08:08
[2018-06-10] MEDS: CALCIUM CARBONATE 1.25 GM TAB PO SCH ×2 (08:45→20:04)
[2018-06-10] MEDS: CLOPIDOGREL 75 MG TAB PO SCH (08:46)
[2018-06-10] MEDS: MULTIVIT/CA CARB/B CMPLX/FA TAB PO SCH (08:46)
[2018-06-10] MEDS: CELECOXIB 100 MG CAP PO SCH ×2 (08:47→20:04)
[2018-06-10] MEDS: METOPROLOL 25 MG TAB PO SCH ×2 (08:48→20:11)
[2018-06-10] MEDS: ASPIRIN 81 MG TAB PO SCH (08:48)
[2018-06-10] MEDS: ALLOPURINOL 300 MG TAB PO SCH (08:48)
[2018-06-10] MEDS: ISOSORBIDE MONONITRATE(SR)60 MG TAB PO SCH (08:49)
[2018-06-10] MEDS: FUROSEMIDE 40 MG TAB PO SCH (08:49)
[2018-06-10] MEDS: HYDROCODONE/APAP (5/325) TAB PO PRN (08:58)
[2018-06-10] MEDS ORDERED: morphine 2 MG INJ IV STA (11:12)
--- NOTE | 2018-06-10 11:22 | PN ---
Date/Time of Note Date/Time of Note DATE: 06/10/18 TIME: 11:18 Assessment/Plan VTE Prophylaxis Risk score (from Ns)>0 risk: 6 SCD applied (from [facility] [place]): Yes Pharmacological prophylaxis: NA/contraindicated Pharm contraindication: bleeding Lines/Catheters IV [facility]ter [facility]from [facility] Ministerio Urinary Cath still in place: Yes Reason Cath still needed: urinary retention Assessment/Plan Result Diagram: 06/10/18 0956 06/10/18 0439 Results 24hrs Laboratory Tests Test 06/09/18 19:49 06/10/18 04:31 06/10/18 04:39 06/10/18 09:56 Hemoglobin 9.7 L 8.8 L 10.6 #L Hematocrit 29.7 L 27.8 L 33.7 #L B-Type 292516 H Natriuretic Peptide White Blood 11.0 H Count Red Blood Count 2.96 L Mean Corpuscular 93.9 Volume Mean Corpuscular 29.7 Hemoglobin Mean Corpuscular 31.7 L Hemoglobin Fawn nt Red Cell 13.7 Distribution Width Platelet Count 248 Mean Platelet 9.9 Volume Immature 0.500 H Granulocytes % Neutrophils % 86.1 H Lymphocytes % 3.0 L Monocytes % 8.0 Eosinophils % 1.7 Basophils % 0.7 Nucleated Red 0.0 Blood Cells % Immature 0.050 H Granulocytes # Neutrophils # 9.4 H Lymphocytes # 0.3 L Monocytes # 0.9 Eosinophils # 0.2 Basophils # 0.1 Nucleated Red 0.0 Blood Cells # Sodium Level 136 Potassium Level 4.9 Chloride Level 95 L Carbon Dioxide 29 Level Anion Gap 12 Blood Urea 37 #H Nitrogen Creatinine 4.73 #H Est Glomerular Filtrat Rate mL/min Glucose Level 82 Calcium Level 8.8 Total Bilirubin 0.4 Direct Bilirubin 0.00 Indirect 0.4 Bilirubin Aspartate Amino 48 H Transf (AST/SGOT ) Alanine 23 Aminotransferase (ALT/SGPT) Alkaline 175 H Phosphatase Total Protein 5.8 L Albumin 3.4 Globulin 2.40 Albumin/Globulin 1.41 Ratio Subjective 24 Hr Interval Summary Free Text/Dictation he was doing better this am, but now severe pain low abdomen. catheter is draining pink fluid, bladder scan without retention. appears to have a mass, which is painful over the rt low abdomen. given 2 mg ms without much releif. worried about possible complication from femoral cather. lungs are clear, he is alert. am labs done, stable. dr kennedy here now, dr rodrigez called Gastrointestinal: pain Genitourinary: bleeding Exam/Review of Systems Vital Signs Vitals Vital Signs Date Temp Pulse Resp B/P (MAP) Pulse Ox O2 O2 Flow FiO2 Time Delivery Rate 06/10/18 96 22 177/79 95 Nasal 09:00 (111) Cannula 06/10/18 3.0 08:00 06/10/18 97.6 08:00 06/10/18 35 04:40 Intake and Output 06/09/18 06/09/18 06/10/18 1515:00 23:00 07:00 IntakeIntake Total 200 ml 8600 ml 91373 ml OutputOutput Total 98034 ml 47413 ml BalanceBalance 200 ml -2600 ml -780 ml Medications Medications Current Medications Dextrose (D50w Syringe) ONCE PRN IV DECREASED GLUCOSE Last administered on 06/06/18at 08:18; Admin Dose 50 ML; Start 06/06/18 at 08:00 Acetaminophen (Tylenol Tab) 500 mg Q4H PRN PO MILD PAIN(1-3)OR ELEVATED TEMP Last administered on 06/09/18 15:06; Admin Dose 500 MG; Start 06/06/18 at 11:00 Allopurinol (Zyloprim) 300 mg DAILY PO Last administered on 06/10/18 08:48; Admin Dose 300 MG; Start 06/07/18 at 09:00 Aspirin (Aspirin) 81 mg DAILY PO Last administered on 06/10/18 08:48; Admin Dose 81 MG; Start 06/06/18 at 11:00 Atorvastatin Calcium (Lipitor) 20 mg QHS PO Last administered on 06/09/18at 21:48; Admin Dose 20 MG; Start 06/06/18 at 21:00 Calcium Carbonate (Oyster Shell Calcium) 0.5 gm BID PO Last administered on 06/10/18 08:45; Admin Dose 0.5 GM; Start 06/06/18 at 21:00 Clopidogrel Bisulfate (plaVIX) 75 mg DAILY PO Last administered on 06/10/18 08:46; Admin Dose 75 MG; Start 06/06/18 at 11:00 Isosorbide Mononitrate (Imdur) 120 mg DAILY PO Last administered on 06/10/18 08:49; Admin Dose 120 MG; Start 06/06/18 at 11:00 Metoprolol Tartrate (Lopressor) 25 mg BID PO Last administered on 06/10/18 08:48; Admin Dose 25 MG; Start 06/06/18 at 11:00 Primidone (Mysoline) 25 mg HS PO Last administered on 06/08/18at 22:52; Admin Dose 25 MG; Start 06/06/18 at 21:00 Tramadol HCl (Ultram) 50 mg Q6H PRN PO PAIN Last administered on 06/07/18at 18:07; Admin Dose 50 MG; Start 06/06/18 at 11:00 Vancomycin HCl (Vanco Iv Per Pharmacy) VANCOMYCIN PER PHARMACY PER PROTOCOL XX ; Start 06/06/18 at 13:30 Levofloxacin (Levaquin) 500 mg Q48H PO Last administered on 06/08/18at 13:54; Admin Dose 500 MG; Start 06/08/18 at 13:30; Stop 06/14/18 at 13:29 IV Flush (NS 3 ml) 3 ml PER PROTOCOL IV ; Start 06/06/18 at 14:00 Lorazepam (Ativan) 0.5 mg Q8H PRN PO ANXIETY Last administered on 06/09/18at 04:39; Admin Dose 0.5 MG; Start 06/06/18 at 14:00 Acetaminophen/ Hydrocodone Bitart ([place] (5/325)) 1 tab Q6H PRN PO PAIN LEVEL 4-6 Last administered on 06/10/18 08:58; Admin Dose 1 TAB; Start 06/06/18 at 14:00 Docusate Sodium (Colace) 100 mg Q12H PRN PO CONSTIPATION; Start 06/06/18 at 14:00 Famotidine (Pepcid) 20 mg Q24H PO Last administered on 06/09/18at 21:48; Admin Dose 20 MG; Start 06/06/18 at 21:00 Digoxin (Digoxin) 0.0625 mg DAILY@1300 PO Last administered on 06/09/18 14:58; Admin Dose 0.0625 MG; Start 06/07/18 at 13:00 Furosemide (Lasix) 40 mg DAILY PO Last administered on 06/10/18 08:49; Admin Dose 40 MG; Start 06/07/18 at 09:00 Celecoxib (Celebrex) 100 mg BID PO Last administered on 06/10/18 08:47; Admin Dose 100 MG; Start 06/06/18 at 14:00 Epoetin Calos (Epogen (Esrd)) 10,000 units MoWeFr@17 SC Last administered on 06/07/18 17:54; Admin Dose 10,000 UNITS; Start 06/07/18 at 17:00 Multivit/Ca Carb/ B Cmplx/FA/Prenat (Fany-Jose Luis) 1 tab DAILY PO Last administered on 06/10/18 08:46; Admin Dose 1 TAB; Start 06/08/18 at 09:00 Ondansetron HCl (Zofran Inj) 4 mg Q8H PRN IV NAUSEA AND/OR VOMITING Last administered on 06/10/18 03:07; Admin Dose 4 MG; Start 06/08/18 at 16:30; Stop 06/10/18 at 23:00 Baclofen (Lioresal) 10 mg Q8H PRN PO Cramps Last administered on 06/08/18at 22:34; Admin Dose 10 MG; Start 06/08/18 at 22:30 Morphine Sulfate (morphine) 0.5 mg Q4 PRN IV SEVERE PAIN LEVEL 7-10 Last administered on 06/10/18 06:36; Admin Dose 0.5 MG; Start 06/08/18 at 22:30 Heparin Sodium (Porcine) (Heparin (1000 Units/ml)) 2,800 unit PRN PRN CATHETER DIALYSIS Last administered on 06/09/18 18:08; Admin Dose 2,800 UNIT; Start 06/09/18 at 16:30 Iohexol ((Gastrografin therapeutic equivalent)) [address] ONCE PO ; Start 06/10/18 at 12:00; Stop 06/10/18 at 12:01 MELLO SAUER MD Jun 10, 2018 11:22
--- NOTE | 2018-06-10 11:40 | CONS ---
Date/Time of Note Date/Time of Note DATE: 06/10/18 TIME: 11:33 Assessment/Plan Assessment/Plan Hospital Course Patient was transferred to ICU this am with hypoxemia. Dialysis was done for 2 hours last night and stopped after 2 hours due to AVF malfunction. Blood could not be returned. This am he developed SOB, chest XRay shows CHF. He is lethargic and difficult to arouse. Family is at the bedside. Assessment/Plan # ESRD Fistula nonfunctional Has Dialysis catheter HD done yesterday and planned for today # Acute systolic CHF Clinically improved post HD yesterday HD today CXR today # Elevated troponin No intervention per Cardiology # Hematuria note appreciated CT result noted - atrophic kidneys with cysts Having bladder spasms and clots aspirated by Dr. Panda Repeat CT ordered # Anemia Monitor Hb GARTH # s/p fall with back pain LS spine series negative Result Diagram: 06/10/18 0956 06/10/18 0439 Results 24hrs Laboratory Tests Test 06/09/18 19:49 06/10/18 04:31 06/10/18 04:39 06/10/18 09:56 Hemoglobin 9.7 L 8.8 L 10.6 #L Hematocrit 29.7 L 27.8 L 33.7 #L B-Type 170235 H Natriuretic Peptide White Blood 11.0 H Count Red Blood Count 2.96 L Mean Corpuscular 93.9 Volume Mean Corpuscular 29.7 Hemoglobin Mean Corpuscular 31.7 L Hemoglobin Fawn nt Red Cell 13.7 Distribution Width Platelet Count 248 Mean Platelet 9.9 Volume Immature 0.500 H Granulocytes % Neutrophils % 86.1 H Lymphocytes % 3.0 L Monocytes % 8.0 Eosinophils % 1.7 Basophils % 0.7 Nucleated Red 0.0 Blood Cells % Immature 0.050 H Granulocytes # Neutrophils # 9.4 H Lymphocytes # 0.3 L Monocytes # 0.9 Eosinophils # 0.2 Basophils # 0.1 Nucleated Red 0.0 Blood Cells # Sodium Level 136 Potassium Level 4.9 Chloride Level 95 L Carbon Dioxide 29 Level Anion Gap 12 Blood Urea 37 #H Nitrogen Creatinine 4.73 #H Est Glomerular Filtrat Rate mL/min Glucose Level 82 Calcium Level 8.8 Total Bilirubin 0.4 Direct Bilirubin 0.00 Indirect 0.4 Bilirubin Aspartate Amino 48 H Transf (AST/SGOT ) Alanine 23 Aminotransferase (ALT/SGPT) Alkaline 175 H Phosphatase Total Protein 5.8 L Albumin 3.4 Globulin 2.40 Albumin/Globulin 1.41 Ratio Consultation Date/Type/Reason Admit Date/Time Jun 06, 2018 at 08:52 Initial Consult Date 06/08/18 Type of Consult Nephrology Requesting Provider: RUTH VAZQUEZ MD 24 HR Interval Summary Free Text/Dictation Developed severe lower abd pain this am. Dr. Panda now irrigating his bladder with multiple clots aspirated, pain improved. Exam/Review of Systems Vital Signs Vitals Vital Signs Date Temp Pulse Resp B/P (MAP) Pulse Ox O2 O2 Flow FiO2 Time Delivery Rate 06/10/18 96 22 177/79 95 Nasal 09:00 (111) Cannula 06/10/18 3.0 08:00 06/10/18 97.6 08:00 06/10/18 35 04:40 Intake and Output 06/09/18 06/09/18 06/10/18 1515:00 23:00 07:00 IntakeIntake Total 200 ml 8600 ml 91048 ml OutputOutput Total 95331 ml 28657 ml BalanceBalance 200 ml -2600 ml -780 ml Exam Constitutional: alert Neck: No jvd Respiratory: clear to auscultation Cardiovascular: regular rate and rhythm Gastrointestinal: tender (tenderness over the bladder) Medications Medications Current Medications Dextrose (D50w Syringe) ONCE PRN IV DECREASED GLUCOSE Last administered on 06/06/18at 08:18; Admin Dose 50 ML; Start 06/06/18 at 08:00 Acetaminophen (Tylenol Tab) 500 mg Q4H PRN PO MILD PAIN(1-3)OR ELEVATED TEMP L ast administered on 06/09/18at 15:06; Admin Dose 500 MG; Start 06/06/18 at 11:00 Allopurinol (Zyloprim) 300 mg DAILY PO Last administered on 06/10/18at 08:48; Admin Dose 300 MG; Start 06/07/18 at 09:00 Aspirin (Aspirin) 81 mg DAILY PO Last administered on 06/10/18at 08:48; Admin Dose 81 MG; Start 06/06/18 at 11:00 Atorvastatin Calcium (Lipitor) 20 mg QHS PO Last administered on 06/09/18at 21 :48; Admin Dose 20 MG; Start 06/06/18 at 21:00 Calcium Carbonate (Oyster Shell Calcium) 0.5 gm BID PO Last administered on 06/10/18 08:45; Admin Dose 0.5 GM; Start 06/06/18 at 21:00 Clopidogrel Bisulfate (plaVIX) 75 mg DAILY PO Last administered on 06/10/18 08:46; Admin Dose 75 MG; Start 06/06/18 at 11:00 Isosorbide Mononitrate (Imdur) 120 mg DAILY PO Last administered on 06/10/18 08:49; Admin Dose 120 MG; Start 06/06/18 at 11:00 Metoprolol Tartrate (Lopressor) 25 mg BID PO Last administered on 06/10/18 08:48; Admin Dose 25 MG; Start 06/06/18 at 11:00 Primidone (Mysoline) 25 mg HS PO Last administered on 06/08/18 22:52; Admin Dose 25 MG; Start 06/06/18 at 21:00 Tramadol HCl (Ultram) 50 mg Q6H PRN PO PAIN Last administered on 06/07/18 18:07; Admin Dose 50 MG; Start 06/06/18 at 11:00 Vancomycin HCl (Vanco Iv Per Pharmacy) VANCOMYCIN PER PHARMACY PER PROTOCOL XX ; Start 06/06/18 at 13:30 Levofloxacin (Levaquin) 500 mg Q48H PO Last administered on 06/08/18 13:54; Admin Dose 500 MG; Start 06/08/18 at 13:30; Stop 06/14/18 at 13:29 IV Flush (NS 3 ml) 3 ml PER PROTOCOL IV ; Start 06/06/18 at 14:00 Lorazepam (Ativan) 0.5 mg Q8H PRN PO ANXIETY Last administered on 06/09/18 04:39; Admin Dose 0.5 MG; Start 06/06/18 at 14:00 Acetaminophen/ Hydrocodone Bitart ([place] (5/325)) 1 tab Q6H PRN PO PAIN LEVEL 4-6 Last administered on 06/10/18 08:58; Admin Dose 1 TAB; Start 06/06/18 at 14:00 Docusate Sodium (Colace) 100 mg Q12H PRN PO CONSTIPATION; Start 06/06/18 at 14:00 Famotidine (Pepcid) 20 mg Q24H PO Last administered on 06/09/18 21:48; Admin Dose 20 MG; Start 06/06/18 at 21:00 Digoxin (Digoxin) 0.0625 mg DAILY@1300 PO Last administered on 06/09/18 14:58; Admin Dose 0.0625 MG; Start 06/07/18 at 13:00 Furosemide (Lasix) 40 mg DAILY PO Last administered on 06/10/18 08:49; Admin Dose 40 MG; Start 06/07/18 at 09:00 Celecoxib (Celebrex) 100 mg BID PO Last administered on 06/10/18 08:47; Admin Dose 100 MG; Start 06/06/18 at 14:00 Epoetin Calos (Epogen (Esrd)) 10,000 units MoWeFr@17 SC Last administered on 06/07/18at 17:54; Admin Dose 10,000 UNITS; Start 06/07/18 at 17:00 Multivit/Ca Carb/ B Cmplx/FA/Prenat (Fany-Jose Luis) 1 tab DAILY PO Last administered on 06/10/18 08:46; Admin Dose 1 TAB; Start 06/08/18 at 09:00 Ondansetron HCl (Zofran Inj) 4 mg Q8H PRN IV NAUSEA AND/OR VOMITING Last administered on 06/10/18 03:07; Admin Dose 4 MG; Start 06/08/18 at 16:30; Stop 06/10/18 at 23:00 Baclofen (Lioresal) 10 mg Q8H PRN PO Cramps Last administered on 06/08/18at 22:34; Admin Dose 10 MG; Start 06/08/18 at 22:30 Morphine Sulfate (morphine) 0.5 mg Q4 PRN IV SEVERE PAIN LEVEL 7-10 Last administered on 06/10/18 06:36; Admin Dose 0.5 MG; Start 06/08/18 at 22:30 Heparin Sodium (Porcine) (Heparin (1000 Units/ml)) 2,800 unit PRN PRN CATHETER DIALYSIS Last administered on 06/09/18at 18:08; Admin Dose 2,800 UNIT; Start 06/09/18 at 16:30 Iohexol ((Gastrografin therapeutic equivalent)) 900 [address] ONCE PO ; Start 06/10/18 at 12:00; Stop 06/10/18 at 12:01 FREEDOM NATH MD Jun 10, 2018 11:40
[2018-06-10] MEDS ORDERED: IOHEXOL 14.3 MG(I)/ML (ADULT) BTL PO ONE (12:00)
--- NOTE | 2018-06-10 13:00 | PN ---
Date/Time of Note Date/Time of Note DATE: 06/10/18 TIME: 12:58 Assessment/Plan VTE Prophylaxis Risk score (from Ns)>0 risk: 6 SCD applied (from Ns): Yes Pharmacological prophylaxis: NA/contraindicated Pharm contraindication: other Lines/Catheters IV C[facility]ter Type ([facility] Minister[facility] Urinary Cath still in place: Yes Reason Cath still needed: other (indicate) (gross hematuria) Assessment/Plan Result Diagram: 06/10/18 0956 06/10/18 0439 Results 24hrs Laboratory Tests Test 06/09/18 19:49 06/10/18 04:31 06/10/18 04:39 06/10/18 09:56 Hemoglobin 9.7 L 8.8 L 10.6 #L Hematocrit 29.7 L 27.8 L 33.7 #L B-Type 100515 H Natriuretic Peptide White Blood 11.0 H Count Red Blood Count 2.96 L Mean Corpuscular 93.9 Volume Mean Corpuscular 29.7 Hemoglobin Mean Corpuscular 31.7 L Hemoglobin [place] nt Red Cell 13.7 Distribution Width Platelet Count 248 Mean Platelet 9.9 Volume Immature 0.500 H Granulocytes % Neutrophils % 86.1 H Lymphocytes % 3.0 L Monocytes % 8.0 Eosinophils % 1.7 Basophils % 0.7 Nucleated Red 0.0 Blood Cells % Immature 0.050 H Granulocytes # Neutrophils # 9.4 H Lymphocytes # 0.3 L Monocytes # 0.9 Eosinophils # 0.2 Basophils # 0.1 Nucleated Red 0.0 Blood Cells # Sodium Level 136 Potassium Level 4.9 Chloride Level 95 L Carbon Dioxide 29 Level Anion Gap 12 Blood Urea 37 #H Nitrogen Creatinine 4.73 #H Est Glomerular Filtrat Rate mL/min Glucose Level 82 Calcium Level 8.8 Total Bilirubin 0.4 Direct Bilirubin 0.00 Indirect 0.4 Bilirubin Aspartate Amino 48 H Transf (AST/SGOT ) Alanine 23 Aminotransferase (ALT/SGPT) Alkaline 175 H Phosphatase Total Protein 5.8 L Albumin 3.4 Globulin 2.40 Albumin/Globulin 1.41 Ratio Subjective 24 Hr Interval Summary Free Text/Dictation addendum to prior note bladder hand irrigated with multiple clots and some definite improvement in pain and sense of pressure has gone down for ct, results pending Genitourinary: bleeding Exam/Review of Systems Vital Signs Vitals Vital Signs Date Temp Pulse Resp B/P (MAP) Pulse Ox O2 O2 Flow FiO2 Time Delivery Rate 06/10/18 96 22 177/79 95 Nasal 09:00 (111) Cannula 06/10/18 3.0 08:00 06/10/18 97.6 08:00 06/10/18 35 04:40 Intake and Output 06/09/18 06/09/18 06/10/18 1515:00 23:00 07:00 IntakeIntake Total 200 ml 8600 ml 97372 ml OutputOutput Total 04516 ml 21866 ml BalanceBalance 200 ml -2600 ml -780 ml Medications Medications Current Medications Dextrose (D50w Syringe) ONCE PRN IV DECREASED GLUCOSE Last administered on 06/06/18 08:18; Admin Dose 50 ML; Start 06/06/18 at 08:00 Acetaminophen (Tylenol Tab) 500 mg Q4H PRN PO MILD PAIN(1-3)OR ELEVATED TEMP Last administered on 06/09/18 15:06; Admin Dose 500 MG; Start 06/06/18 at 11:00 Allopurinol (Zyloprim) 300 mg DAILY PO Last administered on 06/10/18 08:48; Admin Dose 300 MG; Start 06/07/18 at 09:00 Aspirin (Aspirin) 81 mg DAILY PO Last administered on 06/10/18 08:48; Admin Dose 81 MG; Start 06/06/18 at 11:00 Atorvastatin Calcium (Lipitor) 20 mg QHS PO Last administered on 06/09/18at 21:48; Admin Dose 20 MG; Start 06/06/18 at 21:00 Calcium Carbonate (Oyster Shell Calcium) 0.5 gm BID PO Last administered on 06/10/18 08:45; Admin Dose 0.5 GM; Start 06/06/18 at 21:00 Clopidogrel Bisulfate (plaVIX) 75 mg DAILY PO Last administered on 06/10/18 08:46; Admin Dose 75 MG; Start 06/06/18 at 11:00 Isosorbide Mononitrate (Imdur) 120 mg DAILY PO Last administered on 06/10/18 08:49; Admin Dose 120 MG; Start 06/06/18 at 11:00 Metoprolol Tartrate (Lopressor) 25 mg BID PO Last administered on 06/10/18 08:48; Admin Dose 25 MG; Start 06/06/18 at 11:00 Primidone (Mysoline) 25 mg HS PO Last administered on 06/08/18at 22:52; Admin Dose 25 MG; Start 06/06/18 at 21:00 Tramadol HCl (Ultram) 50 mg Q6H PRN PO PAIN Last administered on 06/07/18at 18:07; Admin Dose 50 MG; Start 06/06/18 at 11:00 Vancomycin HCl (Vanco Iv Per Pharmacy) VANCOMYCIN PER PHARMACY PER PROTOCOL XX ; Start 06/06/18 at 13:30 Levofloxacin (Levaquin) 500 mg Q48H PO Last administered on 06/08/18at 13:54; Admin Dose 500 MG; Start 06/08/18 at 13:30; Stop 06/14/18 at 13:29 IV Flush (NS 3 ml) 3 ml PER PROTOCOL IV ; Start 06/06/18 at 14:00 Lorazepam (Ativan) 0.5 mg Q8H PRN PO ANXIETY Last administered on 06/09/18at 04:39; Admin Dose 0.5 MG; Start 06/06/18 at 14:00 Acetaminophen/ Hydrocodone Bitart ([place] (5/325)) 1 tab Q6H PRN PO PAIN LEVEL 4-6 Last administered on 06/10/18at 08:58; Admin Dose 1 TAB; Start 06/06/18 at 14:00 Docusate Sodium (Colace) 100 mg Q12H PRN PO CONSTIPATION; Start 06/06/18 at 14:00 Famotidine (Pepcid) 20 mg Q24H PO Last administered on 06/09/18at 21:48; Admin Dose 20 MG; Start 06/06/18 at 21:00 Digoxin (Digoxin) 0.0625 mg DAILY@1300 PO Last administered on 06/09/18 14:58; Admin Dose 0.0625 MG; Start 06/07/18 at 13:00 Furosemide (Lasix) 40 mg DAILY PO Last administered on 06/10/18 08:49; Admin Dose 40 MG; Start 06/07/18 at 09:00 Celecoxib (Celebrex) 100 mg BID PO Last administered on 06/10/18 08:47; Admin Dose 100 MG; Start 06/06/18 at 14:00 Epoetin Calos (Epogen (Esrd)) 10,000 units MoWeFr@17 SC Last administered on 06/07/18 17:54; Admin Dose 10,000 UNITS; Start 06/07/18 at 17:00 Multivit/Ca Carb/ B Cmplx/FA/Prenat (Fany-Jose Luis) 1 tab DAILY PO Last administered on 06/10/18 08:46; Admin Dose 1 TAB; Start 06/08/18 at 09:00 Ondansetron HCl (Zofran Inj) 4 mg Q8H PRN IV NAUSEA AND/OR VOMITING Last administered on 06/10/18 03:07; Admin Dose 4 MG; Start 06/08/18 at 16:30; Stop 06/10/18 at 23:00 Baclofen (Lioresal) 10 mg Q8H PRN PO Cramps Last administered on 06/08/18 22:34; Admin Dose 10 MG; Start 06/08/18 at 22:30 Morphine Sulfate (morphine) 0.5 mg Q4 PRN IV SEVERE PAIN LEVEL 7-10 Last administered on 06/10/18 06:36; Admin Dose 0.5 MG; Start 06/08/18 at 22:30 Heparin Sodium (Porcine) (Heparin (1000 Units/ml)) 2,800 unit PRN PRN CATHETER DIALYSIS Last administered on 06/09/18 18:08; Admin Dose 2,800 UNIT; Start 06/09/18 at 16:30 Miscellaneous Information (*Rx Drug Level Order Reminder*) RANDOM VANCOMYCIN LEVEL ... ONCE ONCE XX ; Start 06/11/18 at 05:00; Stop 06/11/18 at 05:01 MELLO SAUER MD Jun 10, 2018 12:59
[2018-06-10] MEDS: LEVOFLOXACIN 500 MG TAB PO SCH (13:43)
[2018-06-10] MEDS: DIGOXIN 0.125 MG TAB PO SCH (13:44)
--- NOTE | 2018-06-10 15:33 | PN ---
Date/Time of Note Date/Time of Note DATE: 06/10/18 TIME: 15:26 SUBJECTIVE: Patient with bladder spasms and bladder clots requiring irrigation. Patient currently sedated has still not receive dialysis today but had dialysis yesterday with temporary dialysis catheter. The patient is still somewhat confused but denies any chest pains dyspnea palpitations his family is present at bedside. Chart, medications and laboratory studies reviewed. ROS: Unable to obtain with patient somewhat confused. OBJECTIVE: Vital signs please see chart. HEENT; positive JVD, positive HJR, carotids 2 over 4+ without bruits. Chest: Clear to auscultation and percussion, no rales, wheezes or rhonchi. Difficult exam patient restrained Cardiac: S4, S1, S2 with normal physiologic splitting, 1/6 systolic ejection murmur, no rub click or diastolic murmur noted. Abdominal: Bowel sounds positive, soft nontender, no abdominal bruit noted, no hepatosplenomegaly. Extremities: No cyanosis, clubbing, or edema. Negative Homans sign or palpable cords. Fistula in left arm. Temporary dialysis catheter placed in right groin. Pulses: 2/4 pulses diffusely no bruits noted. LABORATORY STUDIES; Hemoglobin 8.8 hematocrit 27.8 white count 11,000 normal platelets 248,000, cholesterol 84 triglycerides 101 LDL 34 HDL 30, electrolytes normal BUN 37 creatinine 4.73, AST mildly elevated 48 alkaline phosphatase elevated 175 BNP over 13,000. Chest x-ray revealed bilateral pleural effusions to overload, overload patient missed dialysis acute on chronic systolic heart failure. 7. Gout. 8. Trace aortic regurgitation on prior echocardiogram. 9. Probable repeat acute non-ST elevation myocardial infarction this admission. At this time the patient continues to have significant ischemic cardiomyopathy and is volume overloaded and will be receiving dialysis again today. As in my prior note would continue aspirin, Plavix, statin, and institute EKATERINA inhibitor by nephrology but dialysis bath needs to be changed to lower potassium especially with hyperkalemia this admission. I will be available as needed for any further cardiac issues and is in prior note patient and family do not wish to proceed with any invasive procedures. PLAN: 1. Dialysis again today decreased volume overload, consider lower dry weight. 2. Once again recommend EKATERINA inhibitor to be instituted by nephrology with proper adjustment of potassium and dialysate with underlying ischemic cardiomyopathy. 3. Continue aspirin, statin, and Plavix and beta-luciano and nitrates. Continue aggressive medical therapy as per patient's wishes and multiple other medical issues and comorbidities patient not a candidate for repeat angiography at this time especially in the absence of symptoms. 4. I will be available as needed for any further cardiac issues. ELIZA BRISCOE MD Jun 09, 2018 14:26 ELIZA BRISCOE MD Jun 10, 2018 15:33
[2018-06-10] MEDS: EPOETIN 10000 UNITS/1 ML INJ (ESRD) SC SCH (18:11)
[2018-06-10] MEDS: ATORVASTATIN 20 MG TAB PO SCH (20:03)
[2018-06-10] MEDS: PRIMIDONE 50 MG TAB PO SCH (20:05)
[2018-06-10] MEDS: FAMOTIDINE 20 MG TAB PO SCH (20:05)
[2018-06-11] VITALS (26 sets, daily range): BP systolic 91–184; BP diastolic 57–83; PULSE 64–81; RESP 12–20
[2018-06-11] MEDS: HEPARIN 1000 UNITS/ML 10 ML INJ CATHETER PRN (04:08)
[2018-06-11] MEDS: morphine 4 MG/ML VIAL IV PRN (05:56)
--- NOTE | 2018-06-11 08:48 | CONS ---
Date/Time of Note Date/Time of Note DATE: 06/11/18 TIME: 08:44 Consult Date/Type/Reason Admit Date/Time Jun 06, 2018 at 08:52 Initial Consult Date 06/08/18 Type of Consultation: Urology Reason for Consultation Gross hematuria Requesting Provider: RUTH VAZQUEZ MD Subjective Presently the patient is feeling comfortable. He did have an episode of pain yesterday because of clots and had to be hand irrigated. Objective Vital Signs Date Temp Pulse Resp B/P (MAP) Pulse Ox O2 O2 Flow FiO2 Time Delivery Rate 06/11/18 70 08:00 06/11/18 97.7 20 148/72 100 08:00 (97) 06/11/18 2.0 05:52 06/11/18 Nasal 01:07 Cannula 06/10/18 35 04:40 Intake and Output 06/10/18 06/10/18 06/11/18 1515:00 23:00 07:00 IntakeIntake Total 26263 ml 2000 ml 44201 ml OutputOutput Total 19999 ml 3500 ml 20047 ml BalanceBalance 0 ml -1500 ml -3100 ml Exam The bladder is not distended and the return the from the irrigation is clear. Results/Medications Result Diagram: 06/11/18 0446 06/11/18 0447 Results 24 hrs Laboratory Tests Test 06/10/18 09:56 06/10/18 22:18 06/11/18 04:46 06/11/18 04:47 Hemoglobin 10.6 #L 9.5 L 11.2 L Hematocrit 33.7 #L 29.5 L 35.0 L White Blood Count 14.4 #H Red Blood Count 3.81 #L Mean Corpuscular 91.9 Volume Mean Corpuscular 29.4 Hemoglobin Mean Corpuscular 32.0 Hemoglobin Concent Red Cell 14.0 Distribution Width Platelet Count 292 Mean Platelet Volume 10.1 Immature 0.800 H Granulocytes % Neutrophils % 84.0 H Lymphocytes % 3.5 L Monocytes % 7.3 Eosinophils % 3.6 Basophils % 0.8 Nucleated Red Blood 0.0 Cells % Immature 0.120 H Granulocytes # Neutrophils # 12.1 H Lymphocytes # 0.5 L Monocytes # 1.1 H Eosinophils # 0.5 Basophils # 0.1 Nucleated Red Blood 0.0 Cells # Random Vancomycin 10.8 Level Sodium Level 137 Potassium Level 5.1 Chloride Level 93 L Carbon Dioxide Level 27 Anion Gap 17 H Blood Urea Nitrogen 35 H Creatinine 4.18 H Est Glomerular Filtrat Rate mL/min Glucose Level 69 #L Calcium Level 9.2 Total Bilirubin 0.7 Direct Bilirubin 0.00 Indirect Bilirubin 0.7 Aspartate Amino 48 H Transf (AST/SGOT) Alanine 34 Aminotransferase (AL T/SGPT) Alkaline Phosphatase 211 H Total Protein 6.1 Albumin 4.0 Globulin 2.10 Albumin/Globulin 1.90 Ratio Medications Current Medications Dextrose (D50w Syringe) ONCE PRN IV DECREASED GLUCOSE Last administered on 06/06/18 08:18; Admin Dose 50 ML; Start 06/06/18 at 08:00 Acetaminophen (Tylenol Tab) 500 mg Q4H PRN PO MILD PAIN(1-3)OR ELEVATED TEMP Last administered on 06/09/18 15:06; Admin Dose 500 MG; Start 06/06/18 at 11:00 Allopurinol (Zyloprim) 300 mg DAILY PO Last administered on 06/10/18 08:48; Admin Dose 300 MG; Start 06/07/18 at 09:00 Aspirin (Aspirin) 81 mg DAILY PO Last administered on 06/10/18 08:48; Admin Dose 81 MG; Start 06/06/18 at 11:00 Atorvastatin Calcium (Lipitor) 20 mg QHS PO Last administered on 06/10/18 20:03; Admin Dose 20 MG; Start 06/06/18 at 21:00 Calcium Carbonate (Oyster Shell Calcium) 0.5 gm BID PO Last administered on 06/10/18 20:04; Admin Dose 0.5 GM; Start 06/06/18 at 21:00 Clopidogrel Bisulfate (plaVIX) 75 mg DAILY PO Last administered on 06/10/18 08:46; Admin Dose 75 MG; Start 06/06/18 at 11:00 Isosorbide Mononitrate (Imdur) 120 mg DAILY PO Last administered on 06/10/18 08:49; Admin Dose 120 MG; Start 06/06/18 at 11:00 Metoprolol Tartrate (Lopressor) 25 mg BID PO Last administered on 06/10/18 20:11; Admin Dose 25 MG; Start 06/06/18 at 11:00 Primidone (Mysoline) 25 mg HS PO Last administered on 06/10/18 20:05; Admin Dose 25 MG; Start 06/06/18 at 21:00 Tramadol HCl (Ultram) 50 mg Q6H PRN PO PAIN Last administered on 06/07/18at 1 8:07; Admin Dose 50 MG; Start 06/06/18 at 11:00 Vancomycin HCl (Vanco Iv Per Pharmacy) VANCOMYCIN PER PHARMACY PER PROTOCOL XX ; Start 06/06/18 at 13:30 Levofloxacin (Levaquin) 500 mg Q48H PO Last administered on 06/10/18 13:43; Admin Dose 500 MG; Start 06/08/18 at 13:30; Stop 06/14/18 at 13:29 IV Flush (NS 3 ml) 3 ml PER PROTOCOL IV ; Start 06/06/18 at 14:00 Lorazepam (Ativan) 0.5 mg Q8H PRN PO ANXIETY Last administered on 06/09/18 04:39; Admin Dose 0.5 MG; Start 06/06/18 at 14:00 Acetaminophen/ Hydrocodone Bitart ([place] (5/325)) 1 tab Q6H PRN PO PAIN LEVEL 4-6 Last administered on 06/10/18 08:58; Admin Dose 1 TAB; Start 06/06/18 at 14:00 Docusate Sodium (Colace) 100 mg Q12H PRN PO CONSTIPATION; Start 06/06/18 at 14:00 Famotidine (Pepcid) 20 mg Q24H PO Last administered on 06/10/18at 20:05; Admin Dose 20 MG; Start 06/06/18 at 21:00 Digoxin (Digoxin) 0.0625 mg DAILY@1300 PO Last administered on 06/10/18 13:44; Admin Dose 0.0625 MG; Start 06/07/18 at 13:00 Furosemide (Lasix) 40 mg DAILY PO Last administered on 06/10/18 08:49; Admin Dose 40 MG; Start 06/07/18 at 09:00 Celecoxib (Celebrex) 100 mg BID PO Last administered on 06/10/18 20:04; Admin Dose 100 MG; Start 06/06/18 at 14:00 Epoetin Calos (Epogen (Esrd)) 10,000 units MoWeFr@17 SC Last administered on 06/10/18 18:11; Admin Dose 10,000 UNITS; Start 06/07/18 at 17:00 Multivit/Ca Carb/ B Cmplx/FA/Prenat (Fany-Jose Luis) 1 tab DAILY PO Last administered on 06/10/18at 08:46; Admin Dose 1 TAB; Start 06/08/18 at 09:00 Baclofen (Lioresal) 10 mg Q8H PRN PO Cramps Last administered on 06/08/18at 22:34; Admin Dose 10 MG; Start 06/08/18 at 22:30 Morphine Sulfate (morphine) 0.5 mg Q4 PRN IV SEVERE PAIN LEVEL 7-10 Last administered on 06/11/18at 05:56; Admin Dose 0.5 MG; Start 06/08/18 at 22:30 Heparin Sodium (Porcine) (Heparin (1000 Units/ml)) 2,800 unit PRN PRN CATHETER DIALYSIS Last administered on 06/11/18at 04:08; Admin Dose 2,800 UNIT; Start 06/09/18 at 16:30 Vancomycin HCl 250 ml @ 125 mls/hr Q72H IVPB ; Start 06/11/18 at 10:00 Assessment/Plan Chief Complaint/Hosp Course 88-year-old male had gone to the bathroom both for stool and urination. He was trying to get off of the toilet and slid and actually got himself trapped between the toilet and the bathtub. He did not have head trauma and he did not have loss of consciousness. He did not have chest pain or palpitations. He was stuck in that position for minimum of 2 hours before saravanan madera requesting external help. He was brought to the emergency room and admitted. He is on hemodialysis and went to the emergency room try to get a urine specimen from him he was not able to urinate and they did a straight cath on him and since then he has had gross hematuria. Therefore a urological consultation was requested. The patient has been on hemodialysis for about 5 years. He still makes urine and urinates once at night and about 4 times a day. He has undergone a transurethral resection of the prostate when he was 59 years old. Because of the gross hematuria a 24 [place] catheter, three-way with a 30 cc balloon was inserted on 06/08/2018 and the bladder was irrigated thoroughly and the blood clots were removed. Patient was started on continuous bladder irrigation. The return from the irrigation is clear to clear pink depending on how fast irrigation is running. The patient had elevated troponin . He is on Plavix and aspirin and apparently he needs to stay on them because of his heart problems. Patient had an episode of hematuria yesterday and had the catheter hand irrigated to remove the clots. He also underwent a CT scan of the abdomen and pelvis again. There was no change in the appearance of the bladder or the kidneys. On the right side of the bladder there appeared to be some tissue versus clots. We will send urine for cytology to check for cancer cells. He will need a cystoscopy when his medical condition allows. For now continue the bladder irrigation. HAI URIBE MD Jun 11, 2018 08:48
[2018-06-11] MEDS: MULTIVIT/CA CARB/B CMPLX/FA TAB PO SCH (08:58)
[2018-06-11] MEDS: ALLOPURINOL 300 MG TAB PO SCH (08:58)
[2018-06-11] MEDS: FUROSEMIDE 40 MG TAB PO SCH (08:59)
[2018-06-11] MEDS: CALCIUM CARBONATE 1.25 GM TAB PO SCH ×2 (08:59→22:41)
[2018-06-11] MEDS: CELECOXIB 100 MG CAP PO SCH ×2 (08:59→22:41)
[2018-06-11] MEDS: METOPROLOL 25 MG TAB PO SCH ×2 (09:00→22:41)
[2018-06-11] MEDS: CLOPIDOGREL 75 MG TAB PO SCH (09:00)
[2018-06-11] MEDS: ISOSORBIDE MONONITRATE(SR)60 MG TAB PO SCH (09:01)
[2018-06-11] MEDS: ASPIRIN 81 MG TAB PO SCH (09:01)
[2018-06-11] MEDS: VANCOMYCIN 1 GM 250 ML IVPB SCH (10:40)
--- NOTE | 2018-06-11 11:12 | PN ---
Date/Time of Note Date/Time of Note DATE: 06/11/18 TIME: 10:59 Assessment/Plan VTE Prophylaxis Risk score (from Ns)>0 risk: 13 SCD applied (from Ns): Yes Pharmacological prophylaxis: heparin Lines/Catheters IV C[facility]ter Type (from [facility] Ministerio Cath Urinary Cath still in place: Yes Reason Cath still needed: urinary retention Assessment/Plan Problems: (1) Troponin level elevated Status: Acute Comment: On ASA, clopidogrel, isosorbide. Defer to cardiology (2) Systolic CHF with reduced left ventricular function, NYHA class 3 Status: Chronic Comment: On digoxin and furosemide. Defer to cardiology (3) Paroxysmal atrial fibrillation Status: Chronic Comment: Cont. digoxin. Too high risk for venous anticoagulation. Defer to cardiology. (4) Hypertension Status: Chronic Comment: BP controlled w/ metoprolol. Will Cont. Qualifiers: Hypertension type: essential hypertension Qualified Codes: I10 - Essential (primary) hypertension (5) CAD (coronary artery disease) Status: Chronic Comment: On ASA, clopidogrel. Defer to cardiology. Qualifiers: Coronary Disease-Associated Artery/Lesion type: [place] artery [place] vs. transplanted heart: [place] heart Associated angina: without angina Qualified Codes: I25.10 - Atherosclerotic heart disease of [place] coronary artery without angina pectoris (6) Poor appetite Status: Acute Comment: Add metoclopramide 5 mg qac. (7) Fall with no significant injury Status: Acute Comment: On tylenol, norco, morphine prn, celebrex. Will add lidoderm patch to back. Qualifiers: Encounter type: initial encounter Qualified Codes: W19.XXXA - Unspecified fall, initial encounter (8) Osteoarthritis, multiple sites Status: Chronic Comment: On tylenol, norco, morphine prn, celebrex. Will add lidoderm patch to back. (9) Hematuria Status: Acute Comment: Has morris in place draining blood tinged urine. No longer w/ clots or frankly bloody. Defer to urology. Qualifiers: Hematuria type: unspecified type Qualified Codes: R31.9 - Hematuria, unspecified (10) Status post prostatectomy Status: Chronic Comment: Has morris in place draining blood tinged urine. No longer w/ clots or frankly bloody. Defer to urology. (11) Hyperkalemia Status: Acute Comment: Potassium currently back up to 5.1. Cardiology wants to add EKATERINA inhib itor but for nephrology to change potassium bath for HD. Defer to nephrology. (12) End stage renal disease on dialysis Status: Chronic Comment: Cont. HD per nephrology. (13) Hyperuricemia Status: Chronic Comment: Cont. allopurinol (14) Hyperlipidemia Status: Chronic Comment: Cont. statin. Qualifiers: Hyperlipidemia type: pure hypercholesterolemia Qualified Codes: E78.00 - Pure hypercholesterolemia, unspecified (15) Tremor Status: Chronic Comment: Cont. primidone. (16) Elevated lactic acid level Status: Acute Comment: Pt. placed on vanco/levaquin on admit. Lactate has normalized although WBC has remained elevated. Cultures have been negative. Will cont. on abx for now but possible source of infection is unclear. Result Diagram: 06/11/186 06/11/187 Results 24hrs Laboratory Tests Test 06/10/18 22:18 06/11/18 04:46 06/11/18 04:47 Hemoglobin 9.5 L 11.2 L Hematocrit 29.5 L 35.0 L White Blood Count 14.4 #H Red Blood Count 3.81 #L Mean Corpuscular Volume 91.9 Mean Corpuscular Hemoglobin 29.4 Mean Corpuscular Hemoglobin Concent 32.0 Red Cell Distribution Width 14.0 Platelet Count 292 Mean Platelet Volume 10.1 Immature Granulocytes % 0.800 H Neutrophils % 84.0 H Lymphocytes % 3.5 L Monocytes % 7.3 Eosinophils % 3.6 Basophils % 0.8 Nucleated Red Blood Cells % 0.0 Immature Granulocytes # 0.120 H Neutrophils # 12.1 H Lymphocytes # 0.5 L Monocytes # 1.1 H Eosinophils # 0.5 Basophils # 0.1 Nucleated Red Blood Cells # 0.0 Random Vancomycin Level 10.8 Sodium Level 137 Potassium Level 5.1 Chloride Level 93 L Carbon Dioxide Level 27 Anion Gap 17 H Blood Urea Nitrogen 35 H Creatinine 4.18 H Est Glomerular Filtrat Rate mL/min Glucose Level 69 #L Calcium Level 9.2 Total Bilirubin 0.7 Direct Bilirubin 0.00 Indirect Bilirubin 0.7 Aspartate Amino Transf (AST/SGOT) 48 H Alanine Aminotransferase (ALT/SGPT) 34 Alkaline Phosphatase 211 H Total Protein 6.1 Albumin 4.0 Globulin 2.10 Albumin/Globulin Ratio 1.90 Subjective 24 Hr Interval Summary Subjective hx not possible: other (pt. verbal but spends most of his time quietly moaning and only answers questions intermittently) Constitutional: poor po, other (feels weak) Respiratory: no complaints Cardiovascular: no complaints Gastrointestinal: decreased appetite Genitourinary: other ("my bladder" but denies pain and cannot be specific) Musculoskeletal: back pain Neurologic: no complaints Psychological: other (feels he is dying) Exam/Review of Systems Vital Signs Vitals VS - Last 72 Hours, by Label Date Temp Pulse Resp B/P (MAP) Pulse Ox O2 O2 Flow FiO2 Time Delivery Rate 06/11/18 70 08:00 06/11/18 97.7 72 20 148/72 100 08:00 (97) 06/11/18 2.0 05:52 06/11/18 75 04:14 06/11/18 98.0 72 18 122/60 99 04:14 (80) 06/11/18 73 03:54 06/11/18 76 03:40 06/11/18 75 03:25 06/11/18 75 03:10 06/11/18 76 02:55 06/11/18 70 02:40 06/11/18 73 02:25 06/11/18 70 02:10 06/11/18 68 01:55 06/11/18 69 01:40 06/11/18 67 01:25 06/11/18 67 01:10 06/11/18 Nasal 3.0 01:07 Cannula 06/11/18 66 00:55 06/11/18 70 18 184/74 100 Nasal 2.0 00:40 (110) Cannula 06/11/18 64 00:40 06/11/18 97.6 71 12 174/77 100 00:27 (109) 06/11/18 97.6 71 18 174/77 100 00:00 (109) 06/11/18 64 00:00 06/10/18 2.0 23:55 06/10/18 97.4 77 18 184/74 100 20:35 (110) 06/10/18 67 20:05 06/10/18 Nasal 3.0 20:00 Cannula 06/10/18 59 13 98/48 (65) 100 18:00 06/10/18 60 16 112/44 100 17:00 (66) 06/10/18 2.0 16:51 06/10/18 63 16:00 06/10/18 70 19 158/52 100 Nasal 16:00 (87) Cannula 06/10/18 69 13 158/59 100 Nasal 15:00 (92) Cannula 06/10/18 69 13 158/59 100 15:00 (92) 06/10/18 76 20 157/62 100 Nasal 14:00 (93) Cannula 06/10/18 78 17 135/60 100 Nasal 13:00 (85) Cannula 06/10/18 78 17 100 13:00 06/10/18 97.8 73 17 115/51 99 Nasal 12:00 (72) Cannula 06/10/18 Nasal 3.0 12:00 Cannula 06/10/18 76 12:00 06/10/18 106 23 200/105 97 Nasal 11:00 (136) Cannula 06/10/18 88 16 166/54 98 Nasal 10:00 (91) Cannula 06/10/18 96 22 177/79 95 Nasal 09:00 (111) Cannula 06/10/18 96 22 177/79 95 09:00 (111) 06/10/18 84 08:00 06/10/18 Nasal 3.0 08:00 Cannula 06/10/18 97.6 80 21 178/59 100 Nasal 08:00 (98) Cannula 06/10/18 86 21 168/64 96 Nasal 07:00 (98) Cannula 06/10/18 71 19 131/44 95 05:00 (73) 06/10/18 98 35 04:40 06/10/18 79 04:00 06/10/18 78 14 146/43 94 04:00 (77) 06/10/18 97.8 78 14 146/43 94 High Flow 04:00 (77) 06/10/18 80 18 174/59 99 03:00 (97) 06/10/18 100 35 02:30 06/10/18 82 18 163/48 100 02:00 (86) 06/10/18 100 40 02:00 06/10/18 75 20 100 Nasal 20.0 40 01:44 Cannula 06/10/18 100 40 01:40 06/10/18 98.5 89 20 154/59 100 High Flow 01:00 (90) 06/10/18 98 00:00 06/09/18 93 40 23:40 06/09/18 93 18 176/65 98 23:00 (102) 06/09/18 92 23 171/72 22:00 (105) 06/09/18 98.0 78 15 105/42 100 High Flow 21:00 (63) 06/09/18 80 23 136/48 100 20:00 (77) 06/09/18 Nasal 20:00 Cannula 06/09/18 80 20:00 06/09/18 88 18 98 Nasal 20.0 40 19:49 Cannula 06/09/18 98 40 19:45 06/09/18 89 22 164/91 100 High Flow 20.0 19:39 (115) 06/09/18 83 19:30 06/09/18 94 19:26 06/09/18 84 19:15 06/09/18 82 19:00 06/09/18 97.5 84 28 164/91 95 High Flow 19:00 (115) 06/09/18 84 18:45 06/09/18 88 18:30 06/09/18 90 18:15 06/09/18 84 18:00 06/09/18 82 28 161/68 100 High Flow 18:00 (99) 06/09/18 74 17:45 06/09/18 76 23 119/56 99 High Flow 20.0 17:43 (77) 06/09/18 97 45 17:30 06/09/18 70 17:30 06/09/18 66 17:15 06/09/18 72 18 100/54 99 High Flow 17:00 (69) 06/09/18 71 17:00 06/09/18 70 16:45 06/09/18 71 16:30 06/09/18 68 16:13 06/09/18 98.5 68 28 134/43 98 High Flow 16:00 (73) 06/09/18 100 45 15:40 06/09/18 89 19 184/65 100 High Flow 15:00 (104) 06/09/18 77 20 Nasal 20.0 14:52 Cannula 06/09/18 77 25 150/63 100 High Flow 14:00 (92) 06/09/18 97 45 13:40 06/09/18 64 17 122/48 100 High Flow 13:00 (72) 06/09/18 64 12:21 06/09/18 98.4 65 16 119/47 100 Non 15.0 12:00 (71) Rebreather 06/09/18 67 21 100 Non 15.0 11:51 Rebreather Mask 06/09/18 100 45 11:40 06/09/18 Non 15.0 11:00 Rebreather 06/09/18 75 22 161/63 98 Non 15.0 11:00 (95) Rebreather 06/09/18 Non 15.0 09:00 Rebreather 06/09/18 89 08:43 06/09/18 98.3 91 16 138/63 90 08:27 (88) 06/09/18 98 15.0 05:51 06/09/18 73 22 98 Non 15.0 05:51 Rebreather Mask 06/09/18 98.6 85 20 144/73 04:38 (96) 06/09/18 Non 15.0 04:00 Rebreather 06/09/18 74 04:00 06/09/18 98.4 111 18 165/79 94 01:46 (107) 06/09/18 67 17 132/59 96 Nasal 2.0 00:22 (83) Cannula 06/09/18 67 00:00 06/08/18 60 22:15 06/08/18 69 22:00 06/08/18 60 21:45 06/08/18 56 21:30 06/08/18 59 21:15 06/08/18 61 21:00 06/08/18 Nasal 4.0 21:00 Cannula 06/08/18 57 20:45 06/08/18 57 20:30 06/08/18 97.3 58 19 124/58 94 20:29 (80) 06/08/18 57 20:15 06/08/18 56 20:00 06/08/18 57 16:41 06/08/18 97.4 56 18 136/62 96 Nasal 15:49 (86) Cannula 06/08/18 59 12:54 06/08/18 97.6 60 18 145/67 94 Nasal 12:00 (93) Cannula Vital Signs Date Temp Pulse Resp B/P (MAP) Pulse Ox O2 O2 Flow FiO2 Time Delivery Rate 06/11/18 70 08:00 06/11/18 97.7 20 148/72 100 08:00 (97) 06/11/18 2.0 05:52 06/11/18 Nasal 01:07 Cannula 06/10/18 35 04:40 Intake and Output 06/10/18 06/10/18 06/11/18 1515:00 23:00 07:00 IntakeIntake Total 59331 ml 2000 ml 96369 ml OutputOutput Total 62007 ml 3500 ml 59310 ml BalanceBalance 0 ml -1500 ml -3100 ml Exam Constitutional: alert, frail; No oriented Respiratory: clear to auscultation, normal air movement Cardiovascular: regular rate and rhythm, nl pulses; No edema, No murmurs/extra sounds, No rub Gastrointestinal: soft, nl liver, spleen, bowel sounds, tender (minimally tender over periumbilical area); No non-tender, No mass, No rebound or guarding Musculoskeletal: nl extremities to inspection Extremities: normal pulses; No cyanosis, No clubbing, No edema Neurological: YARDER OPERATOR II-XII intact, nl mental status, nl speech, nl strength Medications Medications Current Medications Dextrose (D50w Syringe) ONCE PRN IV DECREASED GLUCOSE Last administered on 06/06/18at 08:18; Admin Dose 50 ML; Start 06/06/18 at 08:00 Acetaminophen (Tylenol Tab) 500 mg Q4H PRN PO MILD PAIN(1-3)OR ELEVATED TEMP Last administered on 06/09/18at 15:06; Admin Dose 500 MG; Start 06/06/18 at 11 :00 Allopurinol (Zyloprim) 300 mg DAILY PO Last administered on 06/11/18 08:58; Admin Dose 300 MG; Start 06/07/18 at 09:00 Aspirin (Aspirin) 81 mg DAILY PO Last administered on 06/11/18 09:01; Admin Dose 81 MG; Start 06/06/18 at 11:00 Atorvastatin Calcium (Lipitor) 20 mg QHS PO Last administered on 06/10/18at 20:03; Admin Dose 20 MG; Start 06/06/18 at 21:00 Calcium Carbonate (Oyster Shell Calcium) 0.5 gm BID PO Last administered on 06/11/18 08:59; Admin Dose 0.5 GM; Start 06/06/18 at 21:00 Clopidogrel Bisulfate (plaVIX) 75 mg DAILY PO Last administered on 06/11/18 09:00; Admin Dose 75 MG; Start 06/06/18 at 11:00 Isosorbide Mononitrate (Imdur) 120 mg DAILY PO Last administered on 06/11/18 09:01; Admin Dose 120 MG; Start 06/06/18 at 11:00 Metoprolol Tartrate (Lopressor) 25 mg BID PO Last administered on 06/11/18 09:00; Admin Dose 25 MG; Start 06/06/18 at 11:00 Primidone (Mysoline) 25 mg HS PO Last administered on 06/10/18at 20:05; Admin Dose 25 MG; Start 06/06/18 at 21:00 Tramadol HCl (Ultram) 50 mg Q6H PRN PO PAIN Last administered on 06/07/18at 18:07; Admin Dose 50 MG; Start 06/06/18 at 11:00 Vancomycin HCl (Vanco Iv Per Pharmacy) VANCOMYCIN PER PHARMACY PER PROTOCOL XX ; Start 06/06/18 at 13:30 Levofloxacin (Levaquin) 500 mg Q48H PO Last administered on 06/10/18at 13:43; Admin Dose 500 MG; Start 06/08/18 at 13:30; Stop 06/14/18 at 13:29 IV Flush (NS 3 ml) 3 ml PER PROTOCOL IV ; Start 06/06/18 at 14:00 Lorazepam (Ativan) 0.5 mg Q8H PRN PO ANXIETY Last administered on 06/09/18at 04:39; Admin Dose 0.5 MG; Start 06/06/18 at 14:00 Acetaminophen/ Hydrocodone Bitart ([place] (5/325)) 1 tab Q6H PRN PO PAIN LEVEL 4-6 Last administered on 06/10/18at 08:58; Admin Dose 1 TAB; Start 06/06/18 at 14:00 Docusate Sodium (Colace) 100 mg Q12H PRN PO CONSTIPATION; Start 06/06/18 at 14:00 Famotidine (Pepcid) 20 mg Q24H PO Last administered on 06/10/18at 20:05; Admin Dose 20 MG; Start 06/06/18 at 21:00 Digoxin (Digoxin) 0.0625 mg DAILY@1300 PO Last administered on 06/10/18at 13:44; Admin Dose 0.0625 MG; Start 06/07/18 at 13:00 Furosemide (Lasix) 40 mg DAILY PO Last administered on 06/11/18at 08:59; Admin Dose 40 MG; Start 06/07/18 at 09:00 Celecoxib (Celebrex) 100 mg BID PO Last administered on 06/11/18 08:59; Admin Dose 100 MG; Start 06/06/18 at 14:00 Epoetin Calos (Epogen (Esrd)) 10,000 units MoWeFr@17 SC Last administered on 06/10/18at 18:11; Admin Dose 10,000 UNITS; Start 06/07/18 at 17:00 Multivit/Ca Carb/ B Cmplx/FA/Prenat (Fany-Jose Luis) 1 tab DAILY PO Last administered on 06/11/18 08:58; Admin Dose 1 TAB; Start 06/08/18 at 09:00 Baclofen (Lioresal) 10 mg Q8H PRN PO Cramps Last administered on 06/08/18at 22:34; Admin Dose 10 MG; Start 06/08/18 at 22:30 Morphine Sulfate (morphine) 0.5 mg Q4 PRN IV SEVERE PAIN LEVEL 7-10 Last administered on 06/11/18 05:56; Admin Dose 0.5 MG; Start 06/08/18 at 22:30 Heparin Sodium (Porcine) (Heparin (1000 Units/ml)) 2,800 unit PRN PRN CATHETER DIALYSIS Last administered on 06/11/18 04:08; Admin Dose 2,800 UNIT; Start 06/09/18 at 16:30 Vancomycin HCl 250 ml @ 125 mls/hr Q72H IVPB Last administered on 06/11/18 10:40; Admin Dose 125 MLS/HR; Start 06/11/18 at 10:00 Lidocaine (Lidoderm) 1 patch DAILY TD ; Start 06/11/18 at 11:00; Status UNV Metoclopramide HCl (Reglan) 5 mg AC MEALS PO ; Start 06/11/18 at 11:30; Status UNV SAMUEL ABRAMS MD Jun 11, 2018 11:10
[2018-06-11] MEDS: LIDOCAINE 5% PATCH TD SCH (12:17)
[2018-06-11] MEDS: METOCLOPRAMIDE 5 MG TAB PO SCH ×2 (12:17→17:36)
[2018-06-11] MEDS: DIGOXIN 0.125 MG TAB PO SCH (12:51)
--- NOTE | 2018-06-11 13:50 | CONS ---
Date/Time of Note Date/Time of Note DATE: 06/11/18 TIME: 13:48 Assessment/Plan Assessment/Plan Hospital Course Assessment/Plan # ESRD Fistula nonfunctional Has Dialysis catheter HD done yesterday Next HD tomorrow # Acute systolic CHF Clinically improved post HD # Elevated troponin No intervention per Cardiology # Hematuria Urine is still a little bloody Continue bladder irrigation # Anemia Monitor Hb GARTH # s/p fall with back pain LS spine series negative To start PT Result Diagram: 06/11/18 0446 06/11/18 0447 Results 24hrs Laboratory Tests Test 06/10/18 22:18 06/11/18 04:46 06/11/18 04:47 Hemoglobin 9.5 L 11.2 L Hematocrit 29.5 L 35.0 L White Blood Count 14.4 #H Red Blood Count 3.81 #L Mean Corpuscular Volume 91.9 Mean Corpuscular Hemoglobin 29.4 Mean Corpuscular Hemoglobin Concent 32.0 Red Cell Distribution Width 14.0 Platelet Count 292 Mean Platelet Volume 10.1 Immature Granulocytes % 0.800 H Neutrophils % 84.0 H Lymphocytes % 3.5 L Monocytes % 7.3 Eosinophils % 3.6 Basophils % 0.8 Nucleated Red Blood Cells % 0.0 Immature Granulocytes # 0.120 H Neutrophils # 12.1 H Lymphocytes # 0.5 L Monocytes # 1.1 H Eosinophils # 0.5 Basophils # 0.1 Nucleated Red Blood Cells # 0.0 Random Vancomycin Level 10.8 Sodium Level 137 Potassium Level 5.1 Chloride Level 93 L Carbon Dioxide Level 27 Anion Gap 17 H Blood Urea Nitrogen 35 H Creatinine 4.18 H Est Glomerular Filtrat Rate mL/min Glucose Level 69 #L Calcium Level 9.2 Total Bilirubin 0.7 Direct Bilirubin 0.00 Indirect Bilirubin 0.7 Aspartate Amino Transf (AST/SGOT) 48 H Alanine Aminotransferase (ALT/SGPT) 34 Alkaline Phosphatase 211 H Total Protein 6.1 Albumin 4.0 Globulin 2.10 Albumin/Globulin Ratio 1.90 Consultation Date/Type/Reason Admit Date/Time Jun 06, 2018 at 08:52 Initial Consult Date 06/08/18 Type of Consult Nephrology Requesting Provider: RUTH VAZQUEZ MD 24 HR Interval Summary Free Text/Dictation alert, no pain, no SOB Exam/Review of Systems Vital Signs Vitals Vital Signs Date Temp Pulse Resp B/P (MAP) Pulse Ox O2 O2 Flow FiO2 Time Delivery Rate 06/11/18 72 12:00 06/11/18 97.8 20 148/66 100 11:30 (93) 06/11/18 2.0 05:52 06/11/18 Nasal 01:07 Cannula 06/10/18 35 04:40 Intake and Output 06/10/18 06/10/18 06/11/18 1515:00 23:00 07:00 IntakeIntake Total 64538 ml 2000 ml 06389 ml OutputOutput Total 97307 ml 3500 ml 85933 ml BalanceBalance 0 ml -1500 ml -3100 ml Exam Constitutional: alert Head: normocephalic, atraumatic Neck: No jvd Respiratory: clear to auscultation Cardiovascular: regular rate and rhythm Gastrointestinal: soft, non-tender Extremities: No edema Medications Medications Current Medications Dextrose (D50w Syringe) ONCE PRN IV DECREASED GLUCOSE Last administered on 06/06/18at 08:18; Admin Dose 50 ML; Start 06/06/18 at 08:00 Acetaminophen (Tylenol Tab) 500 mg Q4H PRN PO MILD PAIN(1-3)OR ELEVATED TEMP Last administered on 06/09/18at 15:06; Admin Dose 500 MG; Start 06/06/18 at 11:00 Allopurinol (Zyloprim) 300 mg DAILY PO Last administered on 06/11/18 08:58; Admin Dose 300 MG; Start 06/07/18 at 09:00 Aspirin (Aspirin) 81 mg DAILY PO Last administered on 06/11/18 09:01; Admin Dose 81 MG; Start 06/06/18 at 11:00 Atorvastatin Calcium (Lipitor) 20 mg QHS PO Last administered on 06/10/18at 20:03; Admin Dose 20 MG; Start 06/06/18 at 21:00 Calcium Carbonate (Oyster Shell Calcium) 0.5 gm BID PO Last administered on 06/11/18 08:59; Admin Dose 0.5 GM; Start 06/06/18 at 21:00 Clopidogrel Bisulfate (plaVIX) 75 mg DAILY PO Last administered on 06/11/18 09:00; Admin Dose 75 MG; Start 06/06/18 at 11:00 Isosorbide Mononitrate (Imdur) 120 mg DAILY PO Last administered on 1/1/19at 0 9:01; Admin Dose 120 MG; Start 06/06/18 at 11:00 Metoprolol Tartrate (Lopressor) 25 mg BID PO Last administered on 06/11/18 09:00; Admin Dose 25 MG; Start 06/06/18 at 11:00 Primidone (Mysoline) 25 mg HS PO Last administered on 06/10/18at 20:05; Admin Dose 25 MG; Start 06/06/18 at 21:00 Tramadol HCl (Ultram) 50 mg Q6H PRN PO PAIN Last administered on 06/07/18at 18:07; Admin Dose 50 MG; Start 06/06/18 at 11:00 Vancomycin HCl (Vanco Iv Per Pharmacy) VANCOMYCIN PER PHARMACY PER PROTOCOL XX ; Start 06/06/18 at 13:30 Levofloxacin (Levaquin) 500 mg Q48H PO Last administered on 06/10/18at 13:43; Admin Dose 500 MG; Start 06/08/18 at 13:30; Stop 06/14/18 at 13:29 IV Flush (NS 3 ml) 3 ml PER PROTOCOL IV ; Start 06/06/18 at 14:00 Lorazepam (Ativan) 0.5 mg Q8H PRN PO ANXIETY Last administered on 06/09/18at 04:39; Admin Dose 0.5 MG; Start 06/06/18 at 14:00 Acetaminophen/ Hydrocodone Bitart ([place] (5/325)) 1 tab Q6H PRN PO PAIN LEVEL 4-6 Last administered on 06/10/18at 08:58; Admin Dose 1 TAB; Start 06/06/18 at 14:00 Docusate Sodium (Colace) 100 mg Q12H PRN PO CONSTIPATION; Start 06/06/18 at 14:00 Famotidine (Pepcid) 20 mg Q24H PO Last administered on 06/10/18at 20:05; Admin Dose 20 MG; Start 06/06/18 at 21:00 Digoxin (Digoxin) 0.0625 mg DAILY@1300 PO Last administered on 06/11/18 12:51; Admin Dose 0.0625 MG; Start 06/07/18 at 13:00 Furosemide (Lasix) 40 mg DAILY PO Last administered on 06/11/18 08:59; Admin Dose 40 MG; Start 06/07/18 at 09:00 Celecoxib (Celebrex) 100 mg BID PO Last administered on 06/11/18 08:59; Admin Dose 100 MG; Start 06/06/18 at 14:00 Epoetin Calos (Epogen (Esrd)) 10,000 units MoWeFr@17 SC Last administered on 06/10/18at 18:11; Admin Dose 10,000 UNITS; Start 06/07/18 at 17:00 Multivit/Ca Carb/ B Cmplx/FA/Prenat (Fany-Jose Luis) 1 tab DAILY PO Last administered on 06/11/18 08:58; Admin Dose 1 TAB; Start 06/08/18 at 09:00 Baclofen (Lioresal) 10 mg Q8H PRN PO Cramps Last administered on 06/08/18 22:34; Admin Dose 10 MG; Start 06/08/18 at 22:30 Morphine Sulfate (morphine) 0.5 mg Q4 PRN IV SEVERE PAIN LEVEL 7-10 Last administered on 06/11/18 05:56; Admin Dose 0.5 MG; Start 06/08/18 at 22:30 Heparin Sodium (Porcine) (Heparin (1000 Units/ml)) 2,800 unit PRN PRN CATHETER DIALYSIS Last administered on 06/11/18 04:08; Admin Dose 2,800 UNIT; Start 06/09/18 at 16:30 Vancomycin HCl 250 ml @ 125 mls/hr Q72H IVPB Last administered on 06/11/18 10:40; Admin Dose 125 MLS/HR; Start 06/11/18 at 10:00 Lidocaine (Lidoderm) 1 patch DAILY TD Last administered on 06/11/18 12:17; Admin Dose 1 PATCH; Start 06/11/18 at 11:00 Metoclopramide HCl (Reglan) 5 mg AC MEALS PO Last administered on 06/11/18 12:17; Admin Dose 5 MG; Start 06/11/18 at 11:30 FREEDOM NATH MD Jun 11, 2018 13:50
[2018-06-11] MEDS: HYDROCODONE/APAP (5/325) TAB PO PRN (15:07)
[2018-06-11] MEDS: ATORVASTATIN 20 MG TAB PO SCH (22:41)
[2018-06-11] MEDS: FAMOTIDINE 20 MG TAB PO SCH (22:41)
[2018-06-11] MEDS: PRIMIDONE 50 MG TAB PO SCH (22:46)
[2018-06-12] VITALS (27 sets, daily range): BP systolic 89–148; BP diastolic 48–66; PULSE 64–87; RESP 16–20
[2018-06-12] MEDS: METOCLOPRAMIDE 5 MG TAB PO SCH ×3 (06:03→17:33)
[2018-06-12] MEDS: HYDROCODONE/APAP (5/325) TAB PO PRN ×2 (06:06→21:27)
[2018-06-12] MEDS: morphine 4 MG/ML VIAL IV PRN ×2 (07:46→22:16)
--- NOTE | 2018-06-12 08:56 | PN ---
Date/Time of Note Date/Time of Note DATE: 06/12/18 TIME: 08:51 Assessment/Plan VTE Prophylaxis Risk score (from Ns)>0 risk: 10 SCD applied (from Ns): Yes Pharmacological prophylaxis: NA/contraindicated Pharm contraindication: bleeding Lines/Catheters IV [facility]ter Type [facility]from [facility]): Ministerio Cath Urinary Cath still in place: Yes Reason Cath still needed: other (indicate) (hematuria) Assessment/Plan Result Diagram: 06/12/1844706/12/188 Results 24hrs Laboratory Tests Test 06/12/18 04:48 White Blood Count 13.9 H Red Blood Count 3.56 L Hemoglobin 10.5 L Hematocrit 31.7 L Mean Corpuscular Volume 89.0 Mean Corpuscular Hemoglobin 29.5 Mean Corpuscular Hemoglobin Concent 33.1 Red Cell Distribution Width 13.8 Platelet Count 313 Mean Platelet Volume 9.6 Immature Granulocytes % 1.700 H Neutrophils % 84.5 H Lymphocytes % 3.9 L Monocytes % 6.4 Eosinophils % 3.0 Basophils % 0.5 Nucleated Red Blood Cells % 0.0 Immature Granulocytes # 0.230 H Neutrophils # 11.8 H Lymphocytes # 0.5 L Monocytes # 0.9 Eosinophils # 0.4 Basophils # 0.1 Nucleated Red Blood Cells # 0.0 Sodium Level 137 Potassium Level 5.0 Chloride Level 91 L Carbon Dioxide Level 28 Anion Gap 18 H Blood Urea Nitrogen 53 H Creatinine 6.48 #H Est Glomerular Filtrat Rate mL/min Glucose Level 133 # Calcium Level 9.2 Phosphorus Level 5.7 H Magnesium Level 2.2 Total Bilirubin 0.4 Direct Bilirubin 0.00 Indirect Bilirubin 0.4 Aspartate Amino Transf (AST/SGOT) 39 Alanine Aminotransferase (ALT/SGPT) 30 Alkaline Phosphatase 211 H Total Protein 6.4 Albumin 3.9 Globulin 2.50 Albumin/Globulin Ratio 1.56 Subjective 24 Hr Interval Summary Free Text/Dictation remains uncomfortable from bladder spasm and also back pain. still hematuria, may need cysto sleepy from recent m.s., but nurse reports some confusion prior and pt having difficulty epressing self this am. did eat well. todays labs stable esrd, dialysis yesterdy thru femoral catheter, will see if fistula can be salvaged ashd, prob mi, chf, on medical tgherapy, need hd for fluid removal chronic back pain plan, pe urology, is inrese risk for cysto, but bleeding is persistent Constitutional: disoriented Genitourinary: hematuria Exam/Review of Systems Vital Signs Vitals Vital Signs Date Temp Pulse Resp B/P (MAP) Pulse Ox O2 O2 Flow FiO2 Time Delivery Rate 06/12/18 98.6 77 20 148/66 94 Venturi 08:10 (93) Mask 06/11/18 2.0 22:03 06/10/18 35 04:40 Intake and Output 06/11/18 06/11/18 06/12/18 1515:00 23:00 07:00 IntakeIntake Total 240 ml 260 ml OutputOutput Total 1150 ml BalanceBalance 240 ml -890 ml Medications Medications Current Medications Dextrose (D50w Syringe) ONCE PRN IV DECREASED GLUCOSE Last administered on 06/06/18at 08:18; Admin Dose 50 ML; Start 06/06/18 at 08:00 Acetaminophen (Tylenol Tab) 500 mg Q4H PRN PO MILD PAIN(1-3)OR ELEVATED TEMP Last administered on 06/09/18at 15:06; Admin Dose 500 MG; Start 06/06/18 at 11:00 Allopurinol (Zyloprim) 300 mg DAILY PO Last administered on 06/11/18 08:58; Admin Dose 300 MG; Start 06/07/18 at 09:00 Aspirin (Aspirin) 81 mg DAILY PO Last administered on 06/11/18 09:01; Admin Dose 81 MG; Start 06/06/18 at 11:00 Atorvastatin Calcium (Lipitor) 20 mg QHS PO Last administered on 06/11/18 22:41 ; Admin Dose 20 MG; Start 06/06/18 at 21:00 Calcium Carbonate (Oyster Shell Calcium) 0.5 gm BID PO Last administered on 06/11/18 22:41; Admin Dose 0.5 GM; Start 06/06/18 at 21:00 Clopidogrel Bisulfate (plaVIX) 75 mg DAILY PO Last administered on 06/11/18 09:00; Admin Dose 75 MG; Start 06/06/18 at 11:00 Isosorbide Mononitrate (Imdur) 120 mg DAILY PO Last administered on 06/11/18 09:01; Admin Dose 120 MG; Start 06/06/18 at 11:00 Metoprolol Tartrate (Lopressor) 25 mg BID PO Last administered on 06/11/18 22:41; Admin Dose 25 MG; Start 06/06/18 at 11:00 Primidone (Mysoline) 25 mg HS PO Last administered on 06/11/18 22:46; Admin Dose 25 MG; Start 06/06/18 at 21:00 Tramadol HCl (Ultram) 50 mg Q6H PRN PO PAIN Last administered on 06/07/18at 18:07; Admin Dose 50 MG; Start 06/06/18 at 11:00 Vancomycin HCl (Vanco Iv Per Pharmacy) VANCOMYCIN PER PHARMACY PER PROTOCOL XX ; Start 06/06/18 at 13:30 Levofloxacin (Levaquin) 500 mg Q48H PO Last administered on 06/10/18at 13:43; Admin Dose 500 MG; Start 06/08/18 at 13:30; Stop 06/14/18 at 13:29 IV Flush (NS 3 ml) 3 ml PER PROTOCOL IV ; Start 06/06/18 at 14:00 Lorazepam (Ativan) 0.5 mg Q8H PRN PO ANXIETY Last administered on 06/09/18 04:39; Admin Dose 0.5 MG; Start 06/06/18 at 14:00 Acetaminophen/ Hydrocodone Bitart ([place] (5/325)) 1 tab Q6H PRN PO PAIN LEVEL 4-6 Last administered on 06/12/18 06:06; Admin Dose 1 TAB; Start 06/06/18 at 14:00 Docusate Sodium (Colace) 100 mg Q12H PRN PO CONSTIPATION; Start 06/06/18 at 14:00 Famotidine (Pepcid) 20 mg Q24H PO Last administered on 06/11/18 22:41; Admin Dose 20 MG; Start 06/06/18 at 21:00 Digoxin (Digoxin) 0.0625 mg DAILY@1300 PO Last administered on 06/11/18 12:51; Admin Dose 0.0625 MG; Start 06/07/18 at 13:00 Furosemide (Lasix) 40 mg DAILY PO Last administered on 06/11/18 08:59; Admin Dose 40 MG; Start 06/07/18 at 09:00 Celecoxib (Celebrex) 100 mg BID PO Last administered on 06/11/18 22:41; Admin Dose 100 MG; Start 06/06/18 at 14:00 Epoetin Calos (Epogen (Esrd)) 10,000 units MoWeFr@17 SC Last administered on 06/10/18 18:11; Admin Dose 10,000 UNITS; Start 06/07/18 at 17:00 Multivit/Ca Carb/ B Cmplx/FA/Prenat (Fany-Jose Luis) 1 tab DAILY PO Last administered on 06/11/18 08:58; Admin Dose 1 TAB; Start 06/08/18 at 09:00 Baclofen (Lioresal) 10 mg Q8H PRN PO Cramps Last administered on 06/08/18 22:34; Admin Dose 10 MG; Start 06/08/18 at 22:30 Morphine Sulfate (morphine) 0.5 mg Q4 PRN IV SEVERE PAIN LEVEL 7-10 Last administered on 06/12/18 07:46; Admin Dose 0.5 MG; Start 06/08/18 at 22:30 Heparin Sodium (Porcine) (Heparin (1000 Units/ml)) 2,800 unit PRN PRN CATHETER DIALYSIS Last administered on 06/11/18 04:08; Admin Dose 2,800 UNIT; Start 05/13 at 16:30 Vancomycin HCl 250 ml @ 125 mls/hr Q72H IVPB Last administered on 06/11/18 10:40; Admin Dose 125 MLS/HR; Start 06/11/18 at 10:00 Lidocaine (Lidoderm) 1 patch DAILY TD Last administered on 06/11/18 12:17; Admin Dose 1 PATCH; Start 06/11/18 at 11:00 Metoclopramide HCl (Reglan) 5 mg AC MEALS PO Last administered on 06/12/18 06:03; Admin Dose 5 MG; Start 06/11/18 at 11:30 MELLO SAUER MD Jun 12, 2018 08:56
--- NOTE | 2018-06-12 09:31 | RADRPT ---
Vent Rate: 80 bpm RR Interval: 0 msec [place] Interval: 218 msec QRS Duration: 102 msec QT Interval: 330 msec QTC Interval: 380 msec P-R-T [place]: 83 - -79 - 0 degrees Sinus rhythm with 1st degree AV block Left axis deviation Incomplete right bundle branch block Anteroseptal infarct , age undetermined ST amp; T wave abnormality, consider inferolateral ischemia Abnormal ECG Electronically Signed By: Jomar Sanchez [id number]
--- NOTE | 2018-06-12 09:36 | RADRPT ---
Echocardiogram Report Patient Name: VENANCIO SULTANA Gender: Male Accession #: Date: 1930 Study Date: 09-Jun-2018 Tree Expert: Maria Luz Colon RDCS Location: 110-A Ref. Physician: Quality: Adequate Procedures: Transthoracic echocardiogram with complete 2D, M-Mode, and doppler examination. Indications: Congestive Heart Failure. 2D/M Mode Doppler Measurement Value Normal Ranges Measurement Value Normal Ranges LVIDd MM 5.5 cm AV Peak Delfino 0.8 m/sec LVIDs MM 5.0 cm AV Peak PG 3.0 mmHg FS MM 9.8 % LVOT Peak Delfino 0.7 m/sec LVPWd MM 1.3 cm LVOT Peak PG 2.0 mmHg LVPWs MM 1.4 cm MV E Peak Delfino 0.6 m/sec LVPW % MM 10 % MV A Peak Delfino 0.9 m/sec IVSd MM 1.0 cm MV E/A 0.6 IVS/LVPW MM 0.8 MV Decel Time 56 msec SV MM 44.0 cm3 MV E/A 0.6 AoR Diam 2D 2.8 2.0 - 3.7 cm TV E Peak Delfino 0.4 m/sec LA/Ao 2D 2 0 - 1 TR Peak Delfino 4.4 m/sec SV MM 44.0 cm3 TR Peak PG 77.0 mmHg LA Dimen 2D 4.4 2.3 - 4.0 cm RVSP 77.0 mmHg RA Pressure 3.0 Findings Left Ventricle: Normal left ventricular cavity size. Severe global left ventricular systolic dysfunction. Ejection fraction is visually estimated at 20 %. Tissue Doppler/Mitral Doppler indices are consistent with impaired relaxation (Stage I diastolic dysfunction). E/E`=10. Normal left ventricular chamber size with mild concentric left ventricular hypertrophy and severe global hypokinesis of the anteroseptal and apical garcia and inferior garcia are markedly hypokinetic ejection fraction 20-25%. There was grade 1 diastolic dysfunction with normal left atrial pressure on Doppler imaging. Right Ventricle: Normal right ventricular size. Mild right ventricular hypokinesis. Left Atrium: There is mild enlargement of left atrium. Right Atrium: The right atrium is normal in size. Atrial Septum: Thin and hypermobile atrial septum. The atrial septum was mobile but without intracardiac shunt. Mitral Valve: Normal appearance of the mitral valve. Mild mitral leaflet calcification. Mild mitral valve regurgitation. Mild mitral annular calcification with mild mitral regurgitation. Aortic Valve: Aortic sclerosis without significant stenosis. Aortic cusps appear mildly calcified. Mild to moderate aortic valve regurgitation. Calcified trileaflet aortic valve with mild to moderate aortic regurgitation but no significant stenosis. Tricuspid Valve: Normal appearance of the tricuspid valve. Right ventricular systolic pressure is consistent with severe pulmonary hypertension. Estimated peak PA systolic pressure 80 mmHg. There is mild to moderate tricuspid regurgitation. Mild to moderate tricuspid regurgitation with moderate to severe pulmonary hypertension peak estimated pulmonary systolic pressures of 75-80 mmHg. Pulmonic Valve: Pulmonic valve not well visualized. Pericardium: Normal pericardium with no significant pericardial effusion. Aorta: Normal aortic root. IVC: Normal size and normal respiratory collapse consistent with normal right atrial pressure. Conclusions 1.Normal left ventricular cavity size. Severe global left ventricular systolic dysfunction. Ejection fraction is visually estimated at 20 %. Tissue Doppler/Mitral Doppler indices are consistent with impaired relaxation (Stage I diastolic dysfunction). E/E`=10. Normal left ventricular chamber size with mild concentric left ventricular hypertrophy and severe global hypokinesis of the anteroseptal and apical garcia and inferior garcia are markedly hypokinetic ejection fraction 20-25%. There was grade 1 diastolic dysfunction with normal left atrial pressure on Doppler imaging. 2.There is mild enlargement of left atrium. 3.Normal appearance of the mitral valve. Mild mitral leaflet calcification. Mild mitral valve regurgitation. Mild mitral annular calcification with mild mitral regurgitation. 4.Aortic sclerosis without significant stenosis. Aortic cusps appear mildly calcified. Mild to moderate aortic valve regurgitation. Calcified trileaflet aortic valve with mild to moderate aortic regurgitation but no significant stenosis. 5.Normal appearance of the tricuspid valve. Right ventricular systolic pressure is consistent with severe pulmonary hypertension. Estimated peak PA systolic pressure 80 mmHg. There is mild to moderate tricuspid regurgitation. Mild to moderate tricuspid regurgitation with moderate to severe pulmonary hypertension peak estimated pulmonary systolic pressures of 75-80 mmHg. 6.Normal pericardium with no significant pericardial effusion. 7.Normal size and normal respiratory collapse consistent with normal right atrial pressure. 8.No Vegetation, masses, or thrombi seen. Electronically Signed By: Ky Sandoval 09-Jun-2018 15:15:01 -0800 Patient Name: VENANCIO SULTANA Study Date: 09-Jun-2018 [id number]
[2018-06-12] MEDS: CALCIUM CARBONATE 1.25 GM TAB PO SCH ×2 (09:50→21:26)
[2018-06-12] MEDS: ALLOPURINOL 300 MG TAB PO SCH (09:50)
[2018-06-12] MEDS: LIDOCAINE 5% PATCH TD SCH (09:50)
[2018-06-12] MEDS: CLOPIDOGREL 75 MG TAB PO SCH (09:50)
[2018-06-12] MEDS: MULTIVIT/CA CARB/B CMPLX/FA TAB PO SCH (09:50)
[2018-06-12] MEDS: ASPIRIN 81 MG TAB PO SCH (09:51)
[2018-06-12] MEDS: METOPROLOL 25 MG TAB PO SCH ×2 (09:51→21:00)
[2018-06-12] MEDS: CELECOXIB 100 MG CAP PO SCH ×2 (09:51→21:26)
[2018-06-12] MEDS: ISOSORBIDE MONONITRATE(SR)60 MG TAB PO SCH (09:52)
[2018-06-12] MEDS: FUROSEMIDE 40 MG TAB PO SCH (09:52)
--- NOTE | 2018-06-12 10:22 | CONS ---
Date/Time of Note Date/Time of Note DATE: 06/12/18 TIME: 10:20 Assessment/Plan Assessment/Plan Assessment/Plan 1. CKD, to be dialyzed today. 2. Pul edema has resolved, RI noted 3. Hematuria, gu note rev, pt states this started after morris placed in ER, favor cysto Result Diagram: 06/12/18 0448 06/12/188 Results 24hrs Laboratory Tests Test 06/12/18 04:48 White Blood Count 13.9 H Red Blood Count 3.56 L Hemoglobin 10.5 L Hematocrit 31.7 L Mean Corpuscular Volume 89.0 Mean Corpuscular Hemoglobin 29.5 Mean Corpuscular Hemoglobin Concent 33.1 Red Cell Distribution Width 13.8 Platelet Count 313 Mean Platelet Volume 9.6 Immature Granulocytes % 1.700 H Neutrophils % 84.5 H Lymphocytes % 3.9 L Monocytes % 6.4 Eosinophils % 3.0 Basophils % 0.5 Nucleated Red Blood Cells % 0.0 Immature Granulocytes # 0.230 H Neutrophils # 11.8 H Lymphocytes # 0.5 L Monocytes # 0.9 Eosinophils # 0.4 Basophils # 0.1 Nucleated Red Blood Cells # 0.0 Sodium Level 137 Potassium Level 5.0 Chloride Level 91 L Carbon Dioxide Level 28 Anion Gap 18 H Blood Urea Nitrogen 53 H Creatinine 6.48 #H Est Glomerular Filtrat Rate mL/min Glucose Level 133 # Calcium Level 9.2 Phosphorus Level 5.7 H Magnesium Level 2.2 Total Bilirubin 0.4 Direct Bilirubin 0.00 Indirect Bilirubin 0.4 Aspartate Amino Transf (AST/SGOT) 39 Alanine Aminotransferase (ALT/SGPT) 30 Alkaline Phosphatase 211 H Total Protein 6.4 Albumin 3.9 Globulin 2.50 Albumin/Globulin Ratio 1.56 Consultation Date/Type/Reason Admit Date/Time Jun 06, 2018 at 08:52 Initial Consult Date Requesting Provider: RUTH VAZQUEZ MD Detailed Summary Respiratory: No cough, No shortness of breath Cardiovascular: No chest pain, No orthopenea Gastrointestinal: no complaints Genitourinary: other (catheter is in place) Exam/Review of Systems Vital Signs Vitals Vital Signs Date Temp Pulse Resp B/P (MAP) Pulse Ox O2 O2 Flow FiO2 Time Delivery Rate 06/12/18 98.6 77 20 148/66 94 Venturi 08:10 (93) Mask 06/11/18 2.0 22:03 06/10/18 35 04:40 Intake and Output 06/11/18 06/11/18 06/12/18 1515:00 23:00 07:00 IntakeIntake Total 240 ml 260 ml OutputOutput Total 1150 ml BalanceBalance 240 ml -890 ml Exam Neck: No jvd Respiratory: diminished breath sounds Cardiovascular: regular rate and rhythm Gastrointestinal: soft Extremities: No edema Medications Medications Current Medications Dextrose (D50w Syringe) ONCE PRN IV DECREASED GLUCOSE Last administered on 06/06/18at 08:18; Admin Dose 50 ML; Start 06/06/18 at 08:00 Acetaminophen (Tylenol Tab) 500 mg Q4H PRN PO MILD PAIN(1-3)OR ELEVATED TEMP Last administered on 06/09/18 15:06; Admin Dose 500 MG; Start 06/06/18 at 11:00 Allopurinol (Zyloprim) 300 mg DAILY PO Last administered on 06/12/18 09:50; Admin Dose 300 MG; Start 06/07/18 at 09:00 Aspirin (Aspirin) 81 mg DAILY PO Last administered on 06/12/18 09:51; Admin Dose 81 MG; Start 06/06/18 at 11:00 Atorvastatin Calcium (Lipitor) 20 mg QHS PO Last administered on 06/11/18 22:41; Admin Dose 20 MG; Start 06/06/18 at 21:00 Calcium Carbonate (Oyster Shell Calcium) 0.5 gm BID PO Last administered on 06/12/18 09:50; Admin Dose 0.5 GM; Start 06/06/18 at 21:00 Clopidogrel Bisulfate (plaVIX) 75 mg DAILY PO Last administered on 06/12/18 09:50; Admin Dose 75 MG; Start 06/06/18 at 11:00 Isosorbide Mononitrate (Imdur) 120 mg DAILY PO Last administered on 06/12/18 09:52; Admin Dose 120 MG; Start 06/06/18 at 11:00 Metoprolol Tartrate (Lopressor) 25 mg BID PO Last administered on 06/12/18 0 9:51; Admin Dose 25 MG; Start 06/06/18 at 11:00 Primidone (Mysoline) 25 mg HS PO Last administered on 06/11/18 22:46; Admin Dose 25 MG; Start 06/06/18 at 21:00 Tramadol HCl (Ultram) 50 mg Q6H PRN PO PAIN Last administered on 06/07/18at 18:07; Admin Dose 50 MG; Start 06/06/18 at 11:00 Vancomycin HCl (Vanco Iv Per Pharmacy) VANCOMYCIN PER PHARMACY PER PROTOCOL XX ; Start 06/06/18 at 13:30 Levofloxacin (Levaquin) 500 mg Q48H PO Last administered on 06/10/18at 13:43; Admin Dose 500 MG; Start 06/08/18 at 13:30; Stop 06/14/18 at 13:29 IV Flush (NS 3 ml) 3 ml PER PROTOCOL IV ; Start 06/06/18 at 14:00 Lorazepam (Ativan) 0.5 mg Q8H PRN PO ANXIETY Last administered on 06/09/18at 04:39; Admin Dose 0.5 MG; Start 06/06/18 at 14:00 Acetaminophen/ Hydrocodone Bitart ([place] (5/325)) 1 tab Q6H PRN PO PAIN LEVEL 4-6 Last administered on 06/12/18 06:06; Admin Dose 1 TAB; Start 06/06/18 at 14:00 Docusate Sodium (Colace) 100 mg Q12H PRN PO CONSTIPATION; Start 06/06/18 at 14:00 Famotidine (Pepcid) 20 mg Q24H PO Last administered on 06/11/18 22:41; Admin Dose 20 MG; Start 06/06/18 at 21:00 Digoxin (Digoxin) 0.0625 mg DAILY@1300 PO Last administered on 06/11/18 12:51; Admin Dose 0.0625 MG; Start 06/07/18 at 13:00 Furosemide (Lasix) 40 mg DAILY PO Last administered on 06/12/18 09:52; Admin Dose 40 MG; Start 06/07/18 at 09:00 Celecoxib (Celebrex) 100 mg BID PO Last administered on 06/12/18 09:51; Admin Dose 100 MG; Start 06/06/18 at 14:00 Epoetin Calos (Epogen (Esrd)) 10,000 units MoWeFr@17 SC Last administered on 06/10/18at 18:11; Admin Dose 10,000 UNITS; Start 12/28/18 at 17:00 Multivit/Ca Carb/ B Cmplx/FA/Prenat (Fany-Jose Luis) 1 tab DAILY PO Last administered on 06/12/18 09:50; Admin Dose 1 TAB; Start 06/08/18 at 09:00 Baclofen (Lioresal) 10 mg Q8H PRN PO Cramps Last administered on 06/08/18 22:34; Admin Dose 10 MG; Start 06/08/18 at 22:30 Morphine Sulfate (morphine) 0.5 mg Q4 PRN IV SEVERE PAIN LEVEL 7-10 Last administered on 06/12/18 07:46; Admin Dose 0.5 MG; Start 06/08/18 at 22:30 Heparin Sodium (Porcine) (Heparin (1000 Units/ml)) 2,800 unit PRN PRN CATHETER DIALYSIS Last administered on 06/11/18 04:08; Admin Dose 2,800 UNIT; Start 06/09/18 at 16:30 Vancomycin HCl 250 ml @ 125 mls/hr Q72H IVPB Last administered on 06/11/18 10:40; Admin Dose 125 MLS/HR; Start 06/11/18 at 10:00 Lidocaine (Lidoderm) 1 patch DAILY TD Last administered on 06/12/18 09:50; Admin Dose 1 PATCH; Start 06/11/18 at 11:00 Metoclopramide HCl (Reglan) 5 mg AC MEALS PO Last administered on 06/12/18 06:03; Admin Dose 5 MG; Start 06/11/18 at 11:30 JANETH SHEPARD MD Jun 12, 2018 10:22
--- NOTE | 2018-06-12 13:01 | CONS ---
Date/Time of Note Date/Time of Note DATE: 06/12/18 TIME: 12:58 Consult Date/Type/Reason Admit Date/Time Jun 06, 2018 at 08:52 Initial Consult Date 06/08/18 Type of Consultation: Urology Reason for Consultation Gross hematuria Requesting Provider: RUTH VAZQUEZ MD Subjective Patient is resting and was sleeping. His is at his bedside. Objective Vital Signs Date Temp Pulse Resp B/P (MAP) Pulse Ox O2 O2 Flow FiO2 Time Delivery Rate 06/12/18 71 12:00 06/12/18 97.8 18 127/60 100 Nasal 11:18 (82) Cannula 06/11/18 2.0 22:03 06/10/18 35 04:40 Intake and Output 06/11/18 06/11/18 06/12/18 1515:00 23:00 07:00 IntakeIntake Total 240 ml 260 ml OutputOutput Total 1150 ml BalanceBalance 240 ml -890 ml Exam Presently he is getting the hemodialysis. Llamas catheter is draining clear to blood-tinged urine with the bladder irrigation. Results/Medications Result Diagram: 06/12/18 0448 06/12/18 0448 Results 24 hrs Laboratory Tests Test 06/12/18 04:48 White Blood Count 13.9 H Red Blood Count 3.56 L Hemoglobin 10.5 L Hematocrit 31.7 L Mean Corpuscular Volume 89.0 Mean Corpuscular Hemoglobin 29.5 Mean Corpuscular Hemoglobin Concent 33.1 Red Cell Distribution Width 13.8 Platelet Count 313 Mean Platelet Volume 9.6 Immature Granulocytes % 1.700 H Neutrophils % 84.5 H Lymphocytes % 3.9 L Monocytes % 6.4 Eosinophils % 3.0 Basophils % 0.5 Nucleated Red Blood Cells % 0.0 Immature Granulocytes # 0.230 H Neutrophils # 11.8 H Lymphocytes # 0.5 L Monocytes # 0.9 Eosinophils # 0.4 Basophils # 0.1 Nucleated Red Blood Cells # 0.0 Sodium Level 137 Potassium Level 5.0 Chloride Level 91 L Carbon Dioxide Level 28 Anion Gap 18 H Blood Urea Nitrogen 53 H Creatinine 6.48 #H Est Glomerular Filtrat Rate mL/min Glucose Level 133 # Calcium Level 9.2 Phosphorus Level 5.7 H Magnesium Level 2.2 Total Bilirubin 0.4 Direct Bilirubin 0.00 Indirect Bilirubin 0.4 Aspartate Amino Transf (AST/SGOT) 39 Alanine Aminotransferase (ALT/SGPT) 30 Alkaline Phosphatase 211 H Total Protein 6.4 Albumin 3.9 Globulin 2.50 Albumin/Globulin Ratio 1.56 Medications Current Medications Dextrose (D50w Syringe) ONCE PRN IV DECREASED GLUCOSE Last administered on 06/06/18 08:18; Admin Dose 50 ML; Start 06/06/18 at 08:00 Acetaminophen (Tylenol Tab) 500 mg Q4H PRN PO MILD PAIN(1-3)OR ELEVATED TEMP Last administered on 06/09/18 15:06; Admin Dose 500 MG; Start 06/06/18 at 11:00 Allopurinol (Zyloprim) 300 mg DAILY PO Last administered on 06/12/18 09:50; Admin Dose 300 MG; Start 06/07/18 at 09:00 Aspirin (Aspirin) 81 mg DAILY PO Last administered on 06/12/18 09:51; Admin Dose 81 MG; Start 06/06/18 at 11:00 Atorvastatin Calcium (Lipitor) 20 mg QHS PO Last administered on 06/11/18 22:41; Admin Dose 20 MG; Start 06/06/18 at 21:00 Calcium Carbonate (Oyster Shell Calcium) 0.5 gm BID PO Last administered on 06/12/18 09:50; Admin Dose 0.5 GM; Start 06/06/18 at 21:00 Clopidogrel Bisulfate (plaVIX) 75 mg DAILY PO Last administered on 06/12/18 09:50; Admin Dose 75 MG; Start 06/06/18 at 11:00 Isosorbide Mononitrate (Imdur) 120 mg DAILY PO Last administered on 06/12/18 09:52; Admin Dose 120 MG; Start 06/06/18 at 11:00 Metoprolol Tartrate (Lopressor) 25 mg BID PO Last administered on 06/12/18 09:51; Admin Dose 25 MG; Start 06/06/18 at 11:00 Primidone (Mysoline) 25 mg HS PO Last administered on 06/11/18 22:46; Admin Dose 25 MG; Start 06/06/18 at 21:00 Tramadol HCl (Ultram) 50 mg Q6H PRN PO PAIN Last administered on 06/07/18at 18:07; Admin Dose 50 MG; Start 06/06/18 at 11:00 Vancomycin HCl (Vanco Iv Per Pharmacy) VANCOMYCIN PER PHARMACY PER PROTOCOL XX ; Start 06/06/18 at 13:30 Levofloxacin (Levaquin) 500 mg Q48H PO Last administered on 06/10/18 13:43; Admin Dose 500 MG; Start 06/08/18 at 13:30; Stop 06/14/18 at 13:29 IV Flush (NS 3 ml) 3 ml PER PROTOCOL IV ; Start 06/06/18 at 14:00 Lorazepam (Ativan) 0.5 mg Q8H PRN PO ANXIETY Last administered on 06/09/18 04:39; Admin Dose 0.5 MG; Start 06/06/18 at 14:00 Acetaminophen/ Hydrocodone Bitart (Kennard (5/325)) 1 tab Q6H PRN PO PAIN LEVEL 4-6 Last administered on 06/12/18 06:06; Admin Dose 1 TAB; Start 06/06/18 at 14:00 Docusate Sodium (Colace) 100 mg Q12H PRN PO CONSTIPATION; Start 06/06/18 at 14:00 Famotidine (Pepcid) 20 mg Q24H PO Last administered on 06/11/18 22:41; Admin Dose 20 MG; Start 06/06/18 at 21:00 Digoxin (Digoxin) 0.0625 mg DAILY@1300 PO Last administered on 06/11/18 12:51; Admin Dose 0.0625 MG; Start 06/07/18 at 13:00 Furosemide (Lasix) 40 mg DAILY PO Last administered on 06/12/18 09:52; Admin Dose 40 MG; Start 06/07/18 at 09:00 Celecoxib (Celebrex) 100 mg BID PO Last administered on 06/12/18 09:51; Admin Dose 100 MG; Start 06/06/18 at 14:00 Epoetin Calos (Epogen (Esrd)) 10,000 units MoWeFr@17 SC Last administered on 06/10/18 18:11; Admin Dose 10,000 UNITS; Start 06/07/18 at 17:00 Multivit/Ca Carb/ B Cmplx/FA/Prenat (Fany-Jose Luis) 1 tab DAILY PO Last administered on 06/12/18 09:50; Admin Dose 1 TAB; Start 06/08/18 at 09:00 Baclofen (Lioresal) 10 mg Q8H PRN PO Cramps Last administered on 06/08/18 22:34; Admin Dose 10 MG; Start 06/08/18 at 22:30 Morphine Sulfate (morphine) 0.5 mg Q4 PRN IV SEVERE PAIN LEVEL 7-10 Last administered on 06/12/18 07:46; Admin Dose 0.5 MG; Start 06/08/18 at 22:30 Heparin Sodium (Porcine) (Heparin (1000 Units/ml)) 2,800 unit PRN PRN CATHETER DIALYSIS Last administered on 06/11/18 04:08; Admin Dose 2,800 UNIT; Start 06/09/18 at 16:30 Vancomycin HCl 250 ml @ 125 mls/hr Q72H IVPB Last administered on 06/11/18 10:40; Admin Dose 125 MLS/HR; Start 06/11/18 at 10:00 Lidocaine (Lidoderm) 1 patch DAILY TD Last administered on 06/12/18 09:50; Admin Dose 1 PATCH; Start 06/11/18 at 11:00 Metoclopramide HCl (Reglan) 5 mg AC MEALS PO Last administered on 06/12/18 06:03; Admin Dose 5 MG; Start 06/11/18 at 11:30 Assessment/Plan Chief Complaint/Hosp Course 88-year-old male had gone to the bathroom both for stool and urination. He was trying to get off of the toilet and slid and actually got himself trapped between the toilet and the bathtub. He did not have head trauma and he did not have loss of consciousness. He did not have chest pain or palpitations. He was stuck in that position for minimum of 2 hours before finally requesting external help. He was brought to the emergency room and admitted. He is on hemodialysis and went to the emergency room try to get a urine specimen from him he was not able to urinate and they did a straight cath on him and since then he has had gross hematuria. Therefore a urological consultation was requested. The patient has been on hemodialysis for about 5 years. He still makes urine and urinates once at night and about 4 times a day. He has undergone a transurethral resection of the prostate when he was 59 years old. Because of the gross hematuria a 24 Telugu Llamas catheter, three-way with a 30 cc balloon was inserted on 06/08/2018 and the bladder was irrigated thoroughly and the blood clots were removed. Patient was started on continuous bladder irrigation. The return from the irrigation is clear to clear pink depending on how fast irrigation is running. The patient had elevated troponin . He is on Plavix and aspirin and apparently he needs to stay on them because of his heart problems. Patient had an episode of hematuria 2 days ago and had the catheter hand irrigated to remove the clots. He also underwent a CT scan of the abdomen and pelvis again. There was no change in the appearance of the bladder or the kidneys. On the right side of the bladder there appeared to be some tissue versus clots. We will send urine for cytology to check for cancer cells. He will need a cystoscopy when his medical condition allows. For now continue the bladder irrigation. HAI URIBE MD Jun 12, 2018 13:01
[2018-06-12] MEDS: LEVOFLOXACIN 500 MG TAB PO SCH (13:15)
[2018-06-12] MEDS: DOCUSATE SODIUM 100 MG CAP PO PRN (13:15)
[2018-06-12] MEDS: DIGOXIN 0.125 MG TAB PO SCH (13:16)
[2018-06-12] MEDS: ONDANSETRON 4 MG INJ IV PRN (15:15)
[2018-06-12] MEDS: HEPARIN 1000 UNITS/ML 10 ML INJ CATHETER PRN (15:23)
[2018-06-12] MEDS: traMADol 50 MG TAB PO PRN (17:33)
[2018-06-12] MEDS: EPOETIN 10000 UNITS/1 ML INJ (ESRD) SC SCH (17:34)
[2018-06-12] MEDS: FAMOTIDINE 20 MG TAB PO SCH (21:26)
[2018-06-12] MEDS: ATORVASTATIN 20 MG TAB PO SCH (21:26)
[2018-06-12] MEDS: PRIMIDONE 50 MG TAB PO SCH (21:27)
[2018-06-13] VITALS (11 sets, daily range): BP systolic 110–149; BP diastolic 54–67; PULSE 66–83; RESP 18
[2018-06-13] MEDS: morphine 4 MG/ML VIAL IV PRN ×2 (02:16→23:25)
[2018-06-13] MEDS: METOCLOPRAMIDE 5 MG TAB PO SCH ×3 (06:24→17:30)
--- NOTE | 2018-06-13 08:14 | PN ---
Date/Time of Note Date/Time of Note DATE: 06/13/18 TIME: 08:11 Assessment/Plan VTE Prophylaxis Risk score (from [facility] [place])>0 risk: 8 SCD applied (from [facility] [place]): Yes Pharmacological prophylaxis: NA/contraindicated Pharm contraindication: bleeding (Materia) Lines/Catheters IV Catheter Type (from [facility]): CORNELL CATH Urinary Cath still in place: Yes Reason Cath still needed: urinary retention Assessment/Plan Problems: (1) Non-STEMI (non-ST elevated myocardial infarction) Onset Date: ~ 06/06/2018 Status: Acute Comment: Please see cardiology notes. To try and cooperate with up to using the lowest dose of EKATERINA inhibitor possible and following him along. (2) Systolic CHF with reduced left ventricular function, NYHA class 3 Status: Chronic Comment: Fluid removed with dialysis. (3) End stage renal disease on dialysis Status: Chronic Comment: As per nephrology. (4) Hyperlipidemia Status: Chronic Comment: Noted and on statin therapy Qualifiers: Hyperlipidemia type: pure hypercholesterolemia Qualified Codes: E78.00 - Pure hypercholesterolemia, unspecified (5) Hypertension Status: Chronic Comment: Adequate control. Primary use of beta-blockade and EKATERINA inhibitor and nitrates Qualifiers: Hypertension type: essential hypertension Qualified Codes: I10 - Essential (primary) hypertension (6) Hematuria Status: Acute Comment: As per urology. Given the N STEMI at the time of admission intervention here is a little bit dicey Qualifiers: Hematuria type: unspecified type Qualified Codes: R31.9 - Hematuria, unspecified Result Diagram: 06/12/18 0448 06/12/18 0448 Subjective 24 Hr Interval Summary Free Text/Dictation Patient is asleep at this time arousable with great difficulty Exam/Review of Systems Vital Signs Vitals Vital Signs Date Temp Pulse Resp B/P (MAP) Pulse Ox O2 O2 Flow FiO2 Time Delivery Rate 06/13/18 98.0 83 18 133/62 98 Nasal 07:11 (85) Cannula 06/12/18 2.0 21:28 06/10/18 35 04:40 Intake and Output 06/12/18 06/12/18 06/13/18 1515:00 23:00 07:00 IntakeIntake Total 13228 ml 6140 ml 100 ml OutputOutput Total 3475 ml 9725 ml 1650 ml BalanceBalance 7875 ml -3585 ml -1550 ml Exam Constitutional: non-verbal Respiratory: clear to auscultation, normal air movement Cardiovascular: regular rate and rhythm, nl pulses Gastrointestinal: soft, nl liver, spleen, non-tender Genitourinary - Male: other (Getting Llamas in place) Medications Medications Current Medications Dextrose (D50w Syringe) ONCE PRN IV DECREASED GLUCOSE Last administered on 06/06/18at 08:18; Admin Dose 50 ML; Start 06/06/18 at 08:00 Acetaminophen (Tylenol Tab) 500 mg Q4H PRN PO MILD PAIN(1-3)OR ELEVATED TEMP Last administered on 06/09/18 15:06; Admin Dose 500 MG; Start 06/06/18 at 11:00 Allopurinol (Zyloprim) 300 mg DAILY PO Last administered on 06/12/18 09:50; Admin Dose 300 MG; Start 06/07/18 at 09:00 Aspirin (Aspirin) 81 mg DAILY PO Last administered on 06/12/18 09:51; Admin Dose 81 MG; Start 06/06/18 at 11:00 Atorvastatin Calcium (Lipitor) 20 mg QHS PO Last administered on 06/12/18 21 :26; Admin Dose 20 MG; Start 06/06/18 at 21:00 Calcium Carbonate (Oyster Shell Calcium) 0.5 gm BID PO Last administered on 06/12/18 21:26; Admin Dose 0.5 GM; Start 06/06/18 at 21:00 Clopidogrel Bisulfate (plaVIX) 75 mg DAILY PO Last administered on 06/12/18 09:50; Admin Dose 75 MG; Start 06/06/18 at 11:00 Isosorbide Mononitrate (Imdur) 120 mg DAILY PO Last administered on 06/12/18 09:52; Admin Dose 120 MG; Start 06/06/18 at 11:00 Metoprolol Tartrate (Lopressor) 25 mg BID PO Last administered on 06/12/18 09:51; Admin Dose 25 MG; Start 06/06/18 at 11:00 Primidone (Mysoline) 25 mg HS PO Last administered on 06/12/18 21:27; Admin Dose 25 MG; Start 06/06/18 at 21:00 Tramadol HCl (Ultram) 50 mg Q6H PRN PO PAIN Last administered on 06/12/18 17:33; Admin Dose 50 MG; Start 06/06/18 at 11:00 Vancomycin HCl (Vanco Iv Per Pharmacy) VANCOMYCIN PER PHARMACY PER PROTOCOL XX ; Start 06/06/18 at 13:30 Levofloxacin (Levaquin) 500 mg Q48H PO Last administered on 06/12/18 13:15; Admin Dose 500 MG; Start 06/08/18 at 13:30; Stop 06/14/18 at 13:29 IV Flush (NS 3 ml) 3 ml PER PROTOCOL IV ; Start 06/06/18 at 14:00 Lorazepam (Ativan) 0.5 mg Q8H PRN PO ANXIETY Last administered on 06/09/18 04:39; Admin Dose 0.5 MG; Start 06/06/18 at 14:00 Acetaminophen/ Hydrocodone Bitart (Buford (5/325)) 1 tab Q6H PRN PO PAIN LEVEL 4-6 Last administered on 06/12/18 21:27; Admin Dose 1 TAB; Start 06/06/18 at 14:00 Docusate Sodium (Colace) 100 mg Q12H PRN PO CONSTIPATION Last administered on 06/12/18 13:15; Admin Dose 100 MG; Start 06/06/18 at 14:00 Famotidine (Pepcid) 20 mg Q24H PO Last administered on 06/12/18 21:26; Admin Dose 20 MG; Start 06/06/18 at 21:00 Digoxin (Digoxin) 0.0625 mg DAILY@1300 PO Last administered on 06/12/18 13:16; Admin Dose 0.0625 MG; Start 06/07/18 at 13:00 Furosemide (Lasix) 40 mg DAILY PO Last administered on 06/12/18 09:52; Admin Dose 40 MG; Start 06/07/18 at 09:00 Celecoxib (Celebrex) 100 mg BID PO Last administered on 06/12/18 21:26; Admin Dose 100 MG; Start 06/06/18 at 14:00 Epoetin Calos (Epogen (Esrd)) 10,000 units MoWeFr@17 SC Last administered on 06/12/18 17:34; Admin Dose 10,000 UNITS; Start 06/07/18 at 17:00 Multivit/Ca Carb/ B Cmplx/FA/Prenat (Fany-Jose Luis) 1 tab DAILY PO Last administered on 06/12/18 09:50; Admin Dose 1 TAB; Start 06/08/18 at 09:00 Baclofen (Lioresal) 10 mg Q8H PRN PO Cramps Last administered on 06/08/18 22:34; Admin Dose 10 MG; Start 06/08/18 at 22:30 Morphine Sulfate (morphine) 0.5 mg Q4 PRN IV SEVERE PAIN LEVEL 7-10 Last administered on 06/13/18 02:16; Admin Dose 0.5 MG; Start 06/08/18 at 22:30 Heparin Sodium (Porcine) (Heparin (1000 Units/ml)) 2,800 unit PRN PRN CATHETER DIALYSIS Last administered on 06/12/18 15:23; Admin Dose 2,800 UNIT; Start 06/09/18 at 16:30 Vancomycin HCl 250 ml @ 125 mls/hr Q72H IVPB Last administered on 06/11/18 10:40; Admin Dose 125 MLS/HR; Start 06/11/18 at 10:00 Lidocaine (Lidoderm) 1 patch DAILY TD Last administered on 06/12/18 09:50; Admin Dose 1 PATCH; Start 06/11/18 at 11:00 Metoclopramide HCl (Reglan) 5 mg AC MEALS PO Last administered on 06/13/18 06:24; Admin Dose 5 MG; Start 06/11/18 at 11:30 Ondansetron HCl (Zofran Inj) 4 mg Q6H PRN IV NAUSEA AND/OR VOMITING Last administered on 06/12/18 15:15; Admin Dose 4 MG; Start 06/12/18 at 15:30 RUTH VAZQUEZ MD Jun 13, 2018 08:14
[2018-06-13] MEDS: LIDOCAINE 5% PATCH TD SCH (09:57)
[2018-06-13] MEDS: MULTIVIT/CA CARB/B CMPLX/FA TAB PO SCH (09:57)
[2018-06-13] MEDS: ISOSORBIDE MONONITRATE(SR)60 MG TAB PO SCH (09:58)
[2018-06-13] MEDS: CELECOXIB 100 MG CAP PO SCH ×2 (09:58→21:55)
[2018-06-13] MEDS: CALCIUM CARBONATE 1.25 GM TAB PO SCH ×2 (09:58→21:55)
[2018-06-13] MEDS: ALLOPURINOL 300 MG TAB PO SCH (09:58)
[2018-06-13] MEDS: CLOPIDOGREL 75 MG TAB PO SCH (09:59)
[2018-06-13] MEDS: ASPIRIN 81 MG TAB PO SCH (09:59)
[2018-06-13] MEDS: METOPROLOL 25 MG TAB PO SCH ×2 (09:59→21:56)
[2018-06-13] MEDS: FUROSEMIDE 40 MG TAB PO SCH (09:59)
--- NOTE | 2018-06-13 10:09 | CONS ---
Date/Time of Note Date/Time of Note DATE: 06/13/18 TIME: 10:04 Assessment/Plan Assessment/Plan Assessment/Plan 1. CKD with next HD planned tomm 2. ASHD with recent [place] 3. Gross hematuria which has resolved, ? remove catheter once cognition improved and delay cysto for now given #2 4. Altered MS, rev with RN, did not receive pain meds or sedation this, [employer] imaging pending course today 5. Will need fistulogram as well but reasonable to delay until #4 resolved. Result Diagram: 06/12/188 06/12/18 0448 Consultation Date/Type/Reason Admit Date/Time Jun 06, 2018 at 08:52 Initial Consult Date Requesting Provider: RUTH VAZQUEZ MD 24 HR Interval Summary Constitutional: other (somnolent) Exam/Review of Systems Vital Signs Vitals Vital Signs Date Temp Pulse Resp B/P (MAP) Pulse Ox O2 O2 Flow FiO2 Time Delivery Rate 06/13/18 77 08:01 06/13/18 98.0 18 133/62 98 Nasal 07:11 (85) Cannula 06/12/18 2.0 21:28 06/10/18 35 04:40 Intake and Output 06/12/18 06/12/18 06/13/18 1414:59 22:59 06:59 IntakeIntake Total 00350 ml 6140 ml 100 ml OutputOutput Total 3475 ml 9725 ml 1650 ml BalanceBalance 7875 ml -3585 ml -1550 ml Exam Neck: No jvd Respiratory: clear to auscultation Cardiovascular: regular rate and rhythm Gastrointestinal: soft Genitourinary - Male: other (morris in place) Extremities: No edema Neurological: other (does not respond to verbal or aggressive tactil stim) Medications Medications Current Medications Dextrose (D50w Syringe) ONCE PRN IV DECREASED GLUCOSE Last administered on 06/06/18at 08:18; Admin Dose 50 ML; Start 06/06/18 at 08:00 Acetaminophen (Tylenol Tab) 500 mg Q4H PRN PO MILD PAIN(1-3)OR ELEVATED TEMP Last administered on 06/09/18at 15:06; Admin Dose 500 MG; Start 06/06/18 at 11:00 Allopurinol (Zyloprim) 300 mg DAILY PO Last administered on 06/12/18at 09:50; Admin Dose 300 MG; Start 06/07/18 at 09:00 Aspirin (Aspirin) 81 mg DAILY PO Last administered on 06/12/18 09:51; Admin Dose 81 MG; Start 06/06/18 at 11:00 Atorvastatin Calcium (Lipitor) 20 mg QHS PO Last administered on 06/12/18 21:26; Admin Dose 20 MG; Start 06/06/18 at 21:00 Calcium Carbonate (Oyster Shell Calcium) 0.5 gm BID PO Last administered on 06/12/18 21:26; Admin Dose 0.5 GM; Start 06/06/18 at 21:00 Clopidogrel Bisulfate (plaVIX) 75 mg DAILY PO Last administered on 06/12/18 09:50; Admin Dose 75 MG; Start 06/06/18 at 11:00 Isosorbide Mononitrate (Imdur) 120 mg DAILY PO Last administered on 06/12/18 09:52; Admin Dose 120 MG; Start 06/06/18 at 11:00 Metoprolol Tartrate (Lopressor) 25 mg BID PO Last administered on 06/12/18 09:51; Admin Dose 25 MG; Start 06/06/18 at 11:00 Primidone (Mysoline) 25 mg HS PO Last administered on 06/12/18 21:27; Admin Dose 25 MG; Start 06/06/18 at 21:00 Tramadol HCl (Ultram) 50 mg Q6H PRN PO PAIN Last administered on 06/12/18 17:33; Admin Dose 50 MG; Start 06/06/18 at 11:00 Vancomycin HCl (Vanco Iv Per Pharmacy) VANCOMYCIN PER PHARMACY PER PROTOCOL XX ; Start 06/06/18 at 13:30 Levofloxacin (Levaquin) 500 mg Q48H PO Last administered on 06/12/18 13:15; Admin Dose 500 MG; Start 06/08/18 at 13:30; Stop 06/14/18 at 13:29 IV Flush (NS 3 ml) 3 ml PER PROTOCOL IV ; Start 06/06/18 at 14:00 Lorazepam (Ativan) 0.5 mg Q8H PRN PO ANXIETY Last administered on 06/09/18at 04:39; Admin Dose 0.5 MG; Start 06/06/18 at 14:00 Acetaminophen/ Hydrocodone Bitart (Dubois (5/325)) 1 tab Q6H PRN PO PAIN LEVEL 4-6 Last administered on 06/12/18 21:27; Admin Dose 1 TAB; Start 06/06/18 at 14:00 Docusate Sodium (Colace) 100 mg Q12H PRN PO CONSTIPATION Last administered on 06/12/18 13:15; Admin Dose 100 MG; Start 06/06/18 at 14:00 Famotidine (Pepcid) 20 mg Q24H PO Last administered on 06/12/18 21:26; Admin Dose 20 MG; Start 06/06/18 at 21:00 Digoxin (Digoxin) 0.0625 mg DAILY@1300 PO Last administered on 06/12/18 13:16; Admin Dose 0.0625 MG; Start 06/07/18 at 13:00 Furosemide (Lasix) 40 mg DAILY PO Last administered on 06/12/18 09:52; Admin Dose 40 MG; Start 06/07/18 at 09:00 Celecoxib (Celebrex) 100 mg BID PO Last administered on 06/12/18 21:26; Admin Dose 100 MG; Start 06/06/18 at 14:00 Epoetin Calos (Epogen (Esrd)) 10,000 units MoWeFr@17 SC Last administered on 06/12/18 17:34; Admin Dose 10,000 UNITS; Start 06/07/18 at 17:00 Multivit/Ca Carb/ B Cmplx/FA/Prenat (Fany-Jose Luis) 1 tab DAILY PO Last administered on 06/12/18 09:50; Admin Dose 1 TAB; Start 06/08/18 at 09:00 Baclofen (Lioresal) 10 mg Q8H PRN PO Cramps Last administered on 06/08/18 22:34; Admin Dose 10 MG; Start 06/08/18 at 22:30 Morphine Sulfate (morphine) 0.5 mg Q4 PRN IV SEVERE PAIN LEVEL 7-10 Last administered on 06/13/18 02:16; Admin Dose 0.5 MG; Start 06/08/18 at 22:30 Heparin Sodium (Porcine) (Heparin (1000 Units/ml)) 2,800 unit PRN PRN CATHETER DIALYSIS Last administered on 06/12/18 15:23; Admin Dose 2,800 UNIT; Start 06/09/18 at 16:30 Vancomycin HCl 250 ml @ 125 mls/hr Q72H IVPB Last administered on 06/11/18 10:40; Admin Dose 125 MLS/HR; Start 06/11/18 at 10:00 Lidocaine (Lidoderm) 1 patch DAILY TD Last administered on 06/12/18 09:50; Admin Dose 1 PATCH; Start 06/11/18 at 11:00 Metoclopramide HCl (Reglan) 5 mg AC MEALS PO Last administered on 06/13/18at 06:24; Admin Dose 5 MG; Start 06/11/18 at 11:30 Ondansetron HCl (Zofran Inj) 4 mg Q6H PRN IV NAUSEA AND/OR VOMITING Last administered on 06/12/18at 15:15; Admin Dose 4 MG; Start 06/12/18 at 15:30 Lisinopril (Zestril) 2.5 mg QHS PO ; Start 06/13/18 at 21:00 JANETH SHEPARD MD Jun 13, 2018 10:09
[2018-06-13] MEDS: DIGOXIN 0.125 MG TAB PO SCH (12:10)
--- NOTE | 2018-06-13 14:37 | PN ---
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 Urin is clear now. Exam/Review of Systems Vital Signs Vitals Vital Signs Date Temp Pulse Resp B/P (MAP) Pulse Ox O2 O2 Flow FiO2 Time Delivery Rate 06/13/18 2.0 12:55 06/13/18 66 12:01 06/13/18 98.2 18 115/58 99 Nasal 11:40 (77) Cannula 06/10/18 35 04:40 Intake and Output 06/12/18 06/12/18 06/13/18 1515:00 23:00 07:00 IntakeIntake Total 73685 ml 6140 ml 100 ml OutputOutput Total 3475 ml 9725 ml 1650 ml BalanceBalance 7875 ml -3585 ml -1550 ml Exam Free Text/Dictation L arm AVF pulsatile, no thrill R femoral cornell catheter in place Results Result Diagram: 06/12/188 06/12/188 TERRANCE FLYNN MD Jun 13, 2018 14:37
--- NOTE | 2018-06-13 18:45 | CONS ---
Date/Time of Note Date/Time of Note DATE: 06/13/18 TIME: 18:40 Consult Date/Type/Reason Admit Date/Time Jun 06, 2018 at 08:52 Initial Consult Date 06/08/18 Type of Consultation: Urology Reason for Consultation Gross hematuria Requesting Provider: RUTH VAZQUEZ MD Subjective Patient is awake and denies having any pain. Objective Vital Signs Date Temp Pulse Resp B/P (MAP) Pulse Ox O2 O2 Flow FiO2 Time Delivery Rate 06/13/18 68 16:01 06/13/18 97.8 18 149/67 98 Nasal 15:24 (94) Cannula 06/13/18 2.0 12:55 06/10/18 35 04:40 Intake and Output 06/12/18 06/12/18 06/13/18 1515:00 23:00 07:00 IntakeIntake Total 98753 ml 6140 ml 100 ml OutputOutput Total 3475 ml 9725 ml 1650 ml BalanceBalance 7875 ml -3585 ml -1550 ml Exam The Llamas catheter is in place and draining clear urine. The bladder irrigation is running at a low rate. Results/Medications Result Diagram: 06/12/18 0448 06/12/18 0448 Medications Current Medications Dextrose (D50w Syringe) ONCE PRN IV DECREASED GLUCOSE Last administered on 06/06/18at 08:18; Admin Dose 50 ML; Start 06/06/18 at 08:00 Acetaminophen (Tylenol Tab) 500 mg Q4H PRN PO MILD PAIN(1-3)OR ELEVATED TEMP Last administered on 06/09/18at 15:06; Admin Dose 500 MG; Start 06/06/18 at 11:00 Allopurinol (Zyloprim) 300 mg DAILY PO Last administered on 06/13/18 09:58; Admin Dose 300 MG; Start 06/07/18 at 09:00 Aspirin (Aspirin) 81 mg DAILY PO Last administered on 06/13/18 09:59; Admin Dose 81 MG; Start 06/06/18 at 11:00 Atorvastatin Calcium (Lipitor) 20 mg QHS PO Last administered on 06/12/18 21:26; Admin Dose 20 MG; Start 06/06/18 at 21:00 Calcium Carbonate (Oyster Shell Calcium) 0.5 gm BID PO Last administered on 06/13/18 09:58; Admin Dose 0.5 GM; Start 06/06/18 at 21:00 Clopidogrel Bisulfate (plaVIX) 75 mg DAILY PO Last administered on 06/13/18 09:59; Admin Dose 75 MG; Start 06/06/18 at 11:00 Isosorbide Mononitrate (Imdur) 120 mg DAILY PO Last administered on 06/13/18 09:58; Admin Dose 120 MG; Start 06/06/18 at 11:00 Metoprolol Tartrate (Lopressor) 25 mg BID PO Last administered on 06/13/18 09:59; Admin Dose 25 MG; Start 06/06/18 at 11:00 Primidone (Mysoline) 25 mg HS PO Last administered on 06/12/18 21:27; Admin Dose 25 MG; Start 06/06/18 at 21:00 Tramadol HCl (Ultram) 50 mg Q6H PRN PO PAIN Last administered on 06/12/18 17:33; Admin Dose 50 MG; Start 06/06/18 at 11:00 Vancomycin HCl (Vanco Iv Per Pharmacy) VANCOMYCIN PER PHARMACY PER PROTOCOL XX ; Start 06/06/18 at 13:30 Levofloxacin (Levaquin) 500 mg Q48H PO Last administered on 06/12/18 13:15; Admin Dose 500 MG; Start 06/08/18 at 13:30; Stop 06/14/18 at 13:29 IV Flush (NS 3 ml) 3 ml PER PROTOCOL IV ; Start 06/06/18 at 14:00 Lorazepam (Ativan) 0.5 mg Q8H PRN PO ANXIETY Last administered on 06/09/18at 04:39; Admin Dose 0.5 MG; Start 06/06/18 at 14:00 Acetaminophen/ Hydrocodone Bitart ([place] (5/325)) 1 tab Q6H PRN PO PAIN LEVEL 4-6 Last administered on 06/12/18 21:27; Admin Dose 1 TAB; Start 06/06/18 at 14 :00 Docusate Sodium (Colace) 100 mg Q12H PRN PO CONSTIPATION Last administered on 06/12/18 13:15; Admin Dose 100 MG; Start 06/06/18 at 14:00 Famotidine (Pepcid) 20 mg Q24H PO Last administered on 06/12/18 21:26; Admin Dose 20 MG; Start 06/06/18 at 21:00 Digoxin (Digoxin) 0.0625 mg DAILY@1300 PO Last administered on 06/13/18 12:10; Admin Dose 0.0625 MG; Start 06/07/18 at 13:00 Furosemide (Lasix) 40 mg DAILY PO Last administered on 06/13/18 09:59; Admin Dose 40 MG; Start 06/07/18 at 09:00 Celecoxib (Celebrex) 100 mg BID PO Last administered on 06/13/18 09:58; Admin Dose 100 MG; Start 06/06/18 at 14:00 Epoetin Calos (Epogen (Esrd)) 10,000 units MoWeFr@17 SC Last administered on 06/12/18 17:34; Admin Dose 10,000 UNITS; Start 06/07/18 at 17:00 Multivit/Ca Carb/ B Cmplx/FA/Prenat (Fany-Jose Luis) 1 tab DAILY PO Last administered on 06/13/18 09:57; Admin Dose 1 TAB; Start 06/08/18 at 09:00 Baclofen (Lioresal) 10 mg Q8H PRN PO Cramps Last administered on 06/08/18at 22:34; Admin Dose 10 MG; Start 06/08/18 at 22:30 Morphine Sulfate (morphine) 0.5 mg Q4 PRN IV SEVERE PAIN LEVEL 7-10 Last administered on 06/13/18 02:16; Admin Dose 0.5 MG; Start 06/08/18 at 22:30 Heparin Sodium (Porcine) (Heparin (1000 Units/ml)) 2,800 unit PRN PRN CATHETER DIALYSIS Last administered on 06/12/18 15:23; Admin Dose 2,800 UNIT; Start 06/09/18 at 16:30 Vancomycin HCl 250 ml @ 125 mls/hr Q72H IVPB Last administered on 06/11/18 10:40; Admin Dose 125 MLS/HR; Start 06/11/18 at 10:00; Stop 06/15/18 at 11:00 Lidocaine (Lidoderm) 1 patch DAILY TD Last administered on 06/13/18 09:57; Admin Dose 1 PATCH; Start 06/11/18 at 11:00 Metoclopramide HCl (Reglan) 5 mg AC MEALS PO Last administered on 06/13/18at 12:06; Admin Dose 5 MG; Start 06/11/18 at 11:30 Ondansetron HCl (Zofran Inj) 4 mg Q6H PRN IV NAUSEA AND/OR VOMITING Last administered on 06/12/18at 15:15; Admin Dose 4 MG; Start 06/12/18 at 15:30 Lisinopril (Zestril) 2.5 mg QHS PO ; Start 06/13/18 at 21:00 Assessment/Plan Chief Complaint/Hosp Course 88-year-old male had gone to the bathroom both for stool and urination. He was trying to get off of the toilet and slid and actually got himself trapped between the toilet and the bathtub. He did not have head trauma and he did not have loss of consciousness. He did not have chest pain or palpitations. He was stuck in that position for minimum of 2 hours before finally requesting external help. He was brought to the emergency room and admitted. He is on hemodialysis and went to the emergency room try to get a urine specimen from him he was not able to urinate and they did a straight cath on him and since then he has had gross hematuria. Therefore a urological consultation was requested. The patient has been on hemodialysis for about 5 years. He still makes urine and urinates once at night and about 4 times a day. He has undergone a transurethral resection of the prostate when he was 59 years old. Because of the gross hematuria a 24 [place] Llamas catheter, three-way with a 30 cc balloon was inserted on 06/08/2018 and the bladder was irrigated thoroughly and the blood clots were removed. Patient was started on continuous bladder irrigation. The return from the irrigation is clear to clear pink depending on how fast irrigation is running. The patient had elevated troponin . He is on Plavix and aspirin and apparently he needs to stay on them because of his heart problems. One urine cytology is reported as no malignant cells. He will need a cystoscopy when his medical condition allows. For now continue the bladder irrigation and gradually slow it down to where we could stop it. Then we could discontinue the Llamas catheter.. HAI URIBE MD Jun 13, 2018 18:44
--- NOTE | 2018-06-13 19:35 | RADRPT ---
Vent Rate: 84 bpm RR Interval: 0 msec AR Interval: 202 msec QRS Duration: 104 msec QT Interval: 380 msec QTC Interval: 449 msec P-R-T [place]: 60 - 7 - 0 degrees Normal sinus rhythm Possible Left atrial enlargement Incomplete right bundle branch block Septal infarct , age undetermined Marked ST abnormality, possible inferior subendocardial injury Abnormal ECG Electronically Signed By: Valentín Ellsworth [id number]
[2018-06-13] MEDS: ATORVASTATIN 20 MG TAB PO SCH (21:55)
[2018-06-13] MEDS: FAMOTIDINE 20 MG TAB PO SCH (21:55)
[2018-06-13] MEDS: PRIMIDONE 50 MG TAB PO SCH (21:55)
[2018-06-13] MEDS: LISINOPRIL 5 MG TAB PO SCH (21:56)
[2018-06-14] VITALS (29 sets, daily range): BP systolic 100–162; BP diastolic 45–73; PULSE 62–80; RESP 16–20
[2018-06-14] MEDS: METOCLOPRAMIDE 5 MG TAB PO SCH ×3 (07:00→18:43)
[2018-06-14] MEDS ORDERED: LIDOCAINE 1% (MDV) 20 ML INJ ONE (07:13)
[2018-06-14] MEDS ORDERED: IODIXANOL LOCM 100 ML BTL ONE (07:13)
[2018-06-14] MEDS ORDERED: HEPARIN 1000 UNITS/NS (A-LINE) 1,000 ML ONE (07:13)
[2018-06-14] MEDS ORDERED: MIDAZOLAM 1 MG/ML 2 ML INJ ONE (07:14)
[2018-06-14] MEDS ORDERED: FENTAnyl 50 MCG/ML VIAL ONE (07:14)
[2018-06-14] MEDS: morphine 4 MG/ML VIAL IV PRN (07:24)
[2018-06-14] MEDS ORDERED: CEFAZOLIN 1 GM/50 ML (PMX) 100 ML IVPB ONE (07:48)
[2018-06-14] MEDS ORDERED: HEPARIN 1000 UNITS/ML 10 ML INJ ONE (07:51)
--- NOTE | 2018-06-14 07:57 | SIPON ---
Date/Time of Note Date/Time of Note DATE: 06/14/18 TIME: 07:56 Operative Report Preoperative Diagnosis L arm AVF occlusion Postoperative Diagnosis same Operation/Procedure Performed R femoral permacath placement, tips in RA, OK to use Surgeon see signature line recreation assistant none Anesthesia: other Estimated blood loss: minimal Transfusion Required none Specimen none Grafts/Implants 50 cm permacath Complications none TERRANCE FLYNN MD Jun 14, 2018 07:57
--- NOTE | 2018-06-14 08:41 | OPR ---
DATE OF OPERATION: 06/14/2018 PREOPERATIVE DIAGNOSIS: End-stage renal disease with thrombosed left arm arteriovenous fistula. POSTOPERATIVE DIAGNOSIS: End-stage renal disease with thrombosed left arm arteriovenous fistula. PROCEDURE PERFORMED: Insertion of right femoral Perm-A-Cath. SURGEON: Terrance Slater MD ANESTHESIA: Local anesthesia. ESTIMATED BLOOD LOSS: Minimal. COMPLICATIONS: No intraprocedural complications. INDICATIONS: An 88-year-old gentleman. He was admitted after he fell. He has a left arm AV fistula. It has been working for several years. It was used twice while he was here and then something happened and they were no longer able to access it. I placed a Ministerio catheter last week. He is going to need ongoing dialysis. He has improved a bit, he is no longer in the ICU and I brought him in today. I was going to do a fistulogram to try to open the fistula up and put a Perm-A-Cath in, but unsuccessfully. He just could not tolerate sitting still. He just has very bad back problems. I looked at the fistula with ultrasound. The whole thing is occluded, full of thrombus so I made a quick attempt to stick it and I could not even get blood flow back or the wire to pass, so I stopped and proceeded with placement of the femoral Perm-A-Cath, so the right groin. DESCRIPTION OF PROCEDURE: Ministerio catheter was prepped and draped in the usual sterile fashion. I placed a long Bentson wire through the distal port of the catheter and up into the right atrium. I then removed the old catheter over the wire. We gave him 2 g of Ancef prior to this. I then advanced a 50 cm tunneled hemodialysis catheter over the wire, leaving the tips in the right atrium. I then made a space for the cuff to fit, 2 cm past the incision at the exit site, then flushed the catheter. There was good backflow from both ports. I left 3 mL of 1000 unit per mL heparin in each port, anchored the catheter to the skin using 3-0 nylon suture. A sterile dressing was applied. A Biopatch was applied. Patient was then transferred back to his room in stable condition. He tolerated the procedure well without any complications. If he stabilizes and is in a little better shape, I will attempt to do an open surgical thrombectomy maybe in a week or 2 or create a new graft. Dictated By: TERRANCE ORDONEZ/DARLENE Conf#: [id number] [facility]#: [id number] CC: DEMARCUS CHING MD; MELLO SAUER MD; JANETH SHEPARD MD; RUTH VAZQUEZ MD;*EndCC* MTDD
--- NOTE | 2018-06-14 09:55 | CONS ---
Date/Time of Note Date/Time of Note DATE: 06/14/18 TIME: 09:53 Assessment/Plan Assessment/Plan Assessment/Plan 1. CKD, to have HD today 2. Cognition has improved 3. Will need new vasc access, left arm fistula could be be repaired. 4. Hematuria per urology, bladder is still being irrigated. Result Diagram: 06/14/18 0535 06/14/18 0535 Results 24hrs Laboratory Tests Test 06/14/18 05:35 White Blood Count 13.1 H Red Blood Count 3.64 L Hemoglobin 10.7 L Hematocrit 33.0 L Mean Corpuscular Volume 90.7 Mean Corpuscular Hemoglobin 29.4 Mean Corpuscular Hemoglobin Concent 32.4 Red Cell Distribution Width 13.9 Platelet Count 279 Mean Platelet Volume 9.8 Immature Granulocytes % 3.600 H Neutrophils % 78.7 H Lymphocytes % 4.3 L Monocytes % 8.2 Eosinophils % 4.6 Basophils % 0.6 Nucleated Red Blood Cells % 0.2 H Immature Granulocytes # 0.470 H Neutrophils # 10.3 H Lymphocytes # 0.6 L Monocytes # 1.1 H Eosinophils # 0.6 H Basophils # 0.1 Nucleated Red Blood Cells # 0.0 Sodium Level 135 Potassium Level 5.1 Chloride Level 93 L Carbon Dioxide Level 28 Anion Gap 14 H Blood Urea Nitrogen 63 H Creatinine 7.76 H Est Glomerular Filtrat Rate mL/min Glucose Level 102 Calcium Level 9.1 Consultation Date/Type/Reason Admit Date/Time Jun 06, 2018 at 08:52 Initial Consult Date Requesting Provider: RUTH VAZQUEZ MD 24 HR Interval Summary Constitutional: other (alert this am) Detailed Summary Respiratory: No cough, No shortness of breath Cardiovascular: No chest pain Gastrointestinal: no complaints Musculoskeletal: back pain (is mild) Exam/Review of Systems Vital Signs Vitals Vital Signs Date Temp Pulse Resp B/P (MAP) Pulse Ox O2 O2 Flow FiO2 Time Delivery Rate 06/14/18 75 08:18 06/14/18 98.2 18 156/70 99 Nasal 08:15 (98) Cannula 06/14/18 2.0 05:43 Intake and Output 06/13/18 06/13/18 06/14/18 1414:59 22:59 06:59 IntakeIntake Total 100 ml 50 ml OutputOutput Total 65204 ml 950 ml BalanceBalance -44956 ml -900 ml Exam Neck: No jvd Respiratory: clear to auscultation Cardiovascular: regular rate and rhythm Gastrointestinal: soft Extremities: No edema Medications Medications Current Medications Dextrose (D50w Syringe) ONCE PRN IV DECREASED GLUCOSE Last administered on 06/06/18at 08:18; Admin Dose 50 ML; Start 06/06/18 at 08:00 Acetaminophen (Tylenol Tab) 500 mg Q4H PRN PO MILD PAIN(1-3)OR ELEVATED TEMP Last administered on 06/09/18 15:06; Admin Dose 500 MG; Start 06/06/18 at 11:00 Allopurinol (Zyloprim) 300 mg DAILY PO Last administered on 06/13/18 09:58; Admin Dose 300 MG; Start 06/07/18 at 09:00 Aspirin (Aspirin) 81 mg DAILY PO Last administered on 06/13/18 09:59; Admin Dose 81 MG; Start 06/06/18 at 11:00 Atorvastatin Calcium (Lipitor) 20 mg QHS PO Last administered on 06/13/18 21:55; Admin Dose 20 MG; Start 06/06/18 at 21:00 Calcium Carbonate (Oyster Shell Calcium) 0.5 gm BID PO Last administered on 06/13/18 21:55; Admin Dose 0.5 GM; Start 06/06/18 at 21:00 Clopidogrel Bisulfate (plaVIX) 75 mg DAILY PO Last administered on 06/13/18 09:59; Admin Dose 75 MG; Start 06/06/18 at 11:00 Isosorbide Mononitrate (Imdur) 120 mg DAILY PO Last administered on 06/13/18 09:58; Admin Dose 120 MG; Start 06/06/18 at 11:00 Metoprolol Tartrate (Lopressor) 25 mg BID PO Last administered on 06/13/18 21:56; Admin Dose 25 MG; Start 06/06/18 at 11:00 Primidone (Mysoline) 25 mg HS PO Last administered on 06/13/18 21:55; Admin Dose 25 MG; Start 06/06/18 at 21:00 Tramadol HCl (Ultram) 50 mg Q6H PRN PO PAIN Last administered on 06/12/18 17:33; Admin Dose 50 MG; Start 06/06/18 at 11:00 Vancomycin HCl (Vanco Iv Per Pharmacy) VANCOMYCIN PER PHARMACY PER PROTOCOL XX ; Start 06/06/18 at 13:30 Levofloxacin (Levaquin) 500 mg Q48H PO Last administered on 06/12/18 13:15; Admin Dose 500 MG; Start 06/08/18 at 13:30; Stop 06/14/18 at 13:29 IV Flush (NS 3 ml) 3 ml PER PROTOCOL IV ; Start 06/06/18 at 14:00 Lorazepam (Ativan) 0.5 mg Q8H PRN PO ANXIETY Last administered on 06/09/18at 04:39; Admin Dose 0.5 MG; Start 06/06/18 at 14:00 Acetaminophen/ Hydrocodone Bitart ([place] (5/325)) 1 tab Q6H PRN PO PAIN LEVEL 4-6 Last administered on 06/12/18 21:27; Admin Dose 1 TAB; Start 06/06/18 at 14:00 Docusate Sodium (Colace) 100 mg Q12H PRN PO CONSTIPATION Last administered on 06/12/18 13:15; Admin Dose 100 MG; Start 06/06/18 at 14:00 Famotidine (Pepcid) 20 mg Q24H PO Last administered on 06/13/18 21:55; Admin Dose 20 MG; Start 06/06/18 at 21:00 Digoxin (Digoxin) 0.0625 mg DAILY@1300 PO Last administered on 06/13/18 12:10; Admin Dose 0.0625 MG; Start 06/07/18 at 13:00 Furosemide (Lasix) 40 mg DAILY PO Last administered on 06/13/18 09:59; Admin Dose 40 MG; Start 06/07/18 at 09:00 Celecoxib (Celebrex) 100 mg BID PO Last administered on 06/13/18 21:55; Admin Dose 100 MG; Start 06/06/18 at 14:00 Epoetin Calos (Epogen (Esrd)) 10,000 units MoWeFr@17 SC Last administered on 06/12/18 17:34; Admin Dose 10,000 UNITS; Start 06/07/18 at 17:00 Multivit/Ca Carb/ B Cmplx/FA/Prenat (Fany-Jose Luis) 1 tab DAILY PO Last administe red on 06/13/18 09:57; Admin Dose 1 TAB; Start 06/08/18 at 09:00 Baclofen (Lioresal) 10 mg Q8H PRN PO Cramps Last administered on 06/08/18 22:34; Admin Dose 10 MG; Start 06/08/18 at 22:30 Morphine Sulfate (morphine) 0.5 mg Q4 PRN IV SEVERE PAIN LEVEL 7-10 Last administered on 06/14/18 07:24; Admin Dose 0.5 MG; Start 06/08/18 at 22:30 Heparin Sodium (Porcine) (Heparin (1000 Units/ml)) 2,800 unit PRN PRN CATHETER DIALYSIS Last administered on 06/12/18 15:23; Admin Dose 2,800 UNIT; Start at 16:30 Vancomycin HCl 250 ml @ 125 mls/hr Q72H IVPB Last administered on 06/11/18 10:40; Admin Dose 125 MLS/HR; Start 06/11/18 at 10:00; Stop 06/15/18 at 11:00 Lidocaine (Lidoderm) 1 patch DAILY TD Last administered on 06/13/18 09:57; Admin Dose 1 PATCH; Start 06/11/18 at 11:00 Metoclopramide HCl (Reglan) 5 mg AC MEALS PO Last administered on 06/13/18 12:06; Admin Dose 5 MG; Start 06/11/18 at 11:30 Ondansetron HCl (Zofran Inj) 4 mg Q6H PRN IV NAUSEA AND/OR VOMITING Last administered on 06/12/18 15:15; Admin Dose 4 MG; Start 06/12/18 at 15:30 Lisinopril (Zestril) 2.5 mg QHS PO Last administered on 06/13/18 21:56; Admin Dose 2.5 MG; Start 06/13/18 at 21:00 JANETH SHEPARD MD Jun 14, 2018 09:55
[2018-06-14] MEDS: ASPIRIN 81 MG TAB PO SCH (10:00)
[2018-06-14] MEDS: ALLOPURINOL 300 MG TAB PO SCH (10:00)
[2018-06-14] MEDS: CELECOXIB 100 MG CAP PO SCH ×2 (10:00→20:34)
[2018-06-14] MEDS: FUROSEMIDE 40 MG TAB PO SCH (10:01)
[2018-06-14] MEDS: METOPROLOL 25 MG TAB PO SCH ×2 (10:01→20:34)
[2018-06-14] MEDS: MULTIVIT/CA CARB/B CMPLX/FA TAB PO SCH (10:02)
[2018-06-14] MEDS: CLOPIDOGREL 75 MG TAB PO SCH (10:02)
[2018-06-14] MEDS: ISOSORBIDE MONONITRATE(SR)60 MG TAB PO SCH (10:02)
[2018-06-14] MEDS: CALCIUM CARBONATE 1.25 GM TAB PO SCH ×2 (10:02→20:34)
[2018-06-14] MEDS: LIDOCAINE 5% PATCH TD SCH (10:03)
[2018-06-14] MEDS: VANCOMYCIN 1 GM 250 ML IVPB SCH ×2 (10:47→15:45)
--- NOTE | 2018-06-14 11:19 | PN ---
Date/Time of Note Date/Time of Note DATE: 06/14/18 TIME: 11:14 Assessment/Plan VTE Prophylaxis Risk score (from Nsg)>0 risk: 8 SCD applied (from Ns): Yes Pharmacological prophylaxis: NA/contraindicated, other Pharm contraindication: other (hematuria, needs bladder irrigation) Lines/Catheters IV Catheter Type (from Nrs): CORNELL CATH Urinary Cath still in place: Yes Reason Cath still needed: other (indicate) Assessment/Plan Result Diagram: 06/14/18 0535 06/14/18 0535 Results 24hrs Laboratory Tests Test 06/14/18 05:35 White Blood Count 13.1 H Red Blood Count 3.64 L Hemoglobin 10.7 L Hematocrit 33.0 L Mean Corpuscular Volume 90.7 Mean Corpuscular Hemoglobin 29.4 Mean Corpuscular Hemoglobin Concent 32.4 Red Cell Distribution Width 13.9 Platelet Count 279 Mean Platelet Volume 9.8 Immature Granulocytes % 3.600 H Neutrophils % 78.7 H Lymphocytes % 4.3 L Monocytes % 8.2 Eosinophils % 4.6 Basophils % 0.6 Nucleated Red Blood Cells % 0.2 H Immature Granulocytes # 0.470 H Neutrophils # 10.3 H Lymphocytes # 0.6 L Monocytes # 1.1 H Eosinophils # 0.6 H Basophils # 0.1 Nucleated Red Blood Cells # 0.0 Sodium Level 135 Potassium Level 5.1 Chloride Level 93 L Carbon Dioxide Level 28 Anion Gap 14 H Blood Urea Nitrogen 63 H Creatinine 7.76 H Est Glomerular Filtrat Rate mL/min Glucose Level 102 Calcium Level 9.1 Subjective 24 Hr Interval Summary Free Text/Dictation hematuria, still prsent, no clots, to slow down irrigation and see, no pain over pelvis esrd, using permacath in rt groin for hd today, to remove 1.5 kg today chf, acute mi, no chst pain, no dyspnea at rest, remains on plavix, asa confusion, worse yesterday, seems better today but reporsts still confused at times back pain is chronic, has not been up too much, furthe attempts today agter hd lungs seem clear, hr ok, sats ok, no edema Genitourinary: bleeding Musculoskeletal: back pain Neurologic: confusion Exam/Review of Systems Vital Signs Vitals Vital Signs Date Temp Pulse Resp B/P (MAP) Pulse Ox O2 O2 Flow FiO2 Time Delivery Rate 06/14/18 75 08:18 06/14/18 98.2 18 156/70 99 Nasal 08:15 (98) Cannula 06/14/18 2.0 05:43 Intake and Output 06/13/18 06/13/18 06/14/18 1414:59 22:59 06:59 IntakeIntake Total 100 ml 50 ml OutputOutput Total 30436 ml 950 ml BalanceBalance -85733 ml -900 ml Medications Medications Current Medications Dextrose (D50w Syringe) ONCE PRN IV DECREASED GLUCOSE Last administered on 06/06/18at 08:18; Admin Dose 50 ML; Start 06/06/18 at 08:00 Acetaminophen (Tylenol Tab) 500 mg Q4H PRN PO MILD PAIN(1-3)OR ELEVATED TEMP Last administered on 06/09/18at 15:06; Admin Dose 500 MG; Start 06/06/18 at 11:00 Allopurinol (Zyloprim) 300 mg DAILY PO Last administered on 06/14/18 10:00; Admin Dose 300 MG; Start 06/07/18 at 09:00 Aspirin (Aspirin) 81 mg DAILY PO Last administered on 06/14/18 10:00; Admin Dose 81 MG; Start 06/06/18 at 11:00 Atorvastatin Calcium (Lipitor) 20 mg QHS PO Last administered on 06/13/18 21:55; Admin Dose 20 MG; Start 06/06/18 at 21:00 Calcium Carbonate (Oyster Shell Calcium) 0.5 gm BID PO Last administered on 06/14/18 10:02; Admin Dose 0.5 GM; Start 06/06/18 at 21:00 Clopidogrel Bisulfate (plaVIX) 75 mg DAILY PO Last administered on 06/14/18 10:02; Admin Dose 75 MG; Start 06/06/18 at 11:00 Isosorbide Mononitrate (Imdur) 120 mg DAILY PO Last administered on 06/14/18 10:02; Admin Dose 120 MG; Start 06/06/18 at 11:00 Metoprolol Tartrate (Lopressor) 25 mg BID PO Last administered on 06/14/18 10:01; Admin Dose 25 MG; Start 06/06/18 at 11:00 Primidone (Mysoline) 25 mg HS PO Last administered on 1/3/19at 21:55; Admin Dose 25 MG; Start 06/06/18 at 21:00 Tramadol HCl (Ultram) 50 mg Q6H PRN PO PAIN Last administered on 06/12/18 17:33; Admin Dose 50 MG; Start 06/06/18 at 11:00 Vancomycin HCl (Vanco Iv Per Pharmacy) VANCOMYCIN PER PHARMACY PER PROTOCOL XX ; Start 06/06/18 at 13:30 Levofloxacin (Levaquin) 500 mg Q48H PO Last administered on 06/12/18 13:15; Admin Dose 500 MG; Start 06/08/18 at 13:30; Stop 06/14/18 at 13:29 IV Flush (NS 3 ml) 3 ml PER PROTOCOL IV ; Start 06/06/18 at 14:00 Lorazepam (Ativan) 0.5 mg Q8H PRN PO ANXIETY Last administered on 06/09/18at 04:39; Admin Dose 0.5 MG; Start 06/06/18 at 14:00 Acetaminophen/ Hydrocodone Bitart ([place] (5/325)) 1 tab Q6H PRN PO PAIN LEVEL 4-6 Last administered on 06/12/18 21:27; Admin Dose 1 TAB; Start 06/06/18 at 14:00 Docusate Sodium (Colace) 100 mg Q12H PRN PO CONSTIPATION Last administered on 06/12/18 13:15; Admin Dose 100 MG; Start 06/06/18 at 14:00 Famotidine (Pepcid) 20 mg Q24H PO Last administered on 06/13/18 21:55; Admin Dose 20 MG; Start 06/06/18 at 21:00 Digoxin (Digoxin) 0.0625 mg DAILY@1300 PO Last administered on 06/13/18 12:10; Admin Dose 0.0625 MG; Start 06/07/18 at 13:00 Furosemide (Lasix) 40 mg DAILY PO Last administered on 06/14/18 10:01; Admin Dose 40 MG; Start 06/07/18 at 09:00 Celecoxib (Celebrex) 100 mg BID PO Last administered on 06/14/18 10:00; Admin Dose 100 MG; Start 06/06/18 at 14:00 Epoetin Calos (Epogen (Esrd)) 10,000 units MoWeFr@17 SC Last administered on 06/12/18 17:34; Admin Dose 10,000 UNITS; Start 06/07/18 at 17:00 Multivit/Ca Carb/ B Cmplx/FA/Prenat (Fany-Jose Luis) 1 tab DAILY PO Last administered on 06/14/18 10:02; Admin Dose 1 TAB; Start 06/08/18 at 09:00 Baclofen (Lioresal) 10 mg Q8H PRN PO Cramps Last administered on 06/08/18 2 2:34; Admin Dose 10 MG; Start 06/08/18 at 22:30 Morphine Sulfate (morphine) 0.5 mg Q4 PRN IV SEVERE PAIN LEVEL 7-10 Last administered on 06/14/18 07:24; Admin Dose 0.5 MG; Start 06/08/18 at 22:30 Heparin Sodium (Porcine) (Heparin (1000 Units/ml)) 2,800 unit PRN PRN CATHETER DIALYSIS Last administered on 06/12/18 15:23; Admin Dose 2,800 UNIT; Start 06/09/18 at 16:30 Vancomycin HCl 250 ml @ 125 mls/hr Q72H IVPB Last administered on 06/11/18 10:40; Admin Dose 125 MLS/HR; Start 06/11/18 at 10:00; Stop 06/15/18 at 11:00 Lidocaine (Lidoderm) 1 patch DAILY TD Last administered on 06/14/18 10:03; Admin Dose 1 PATCH; Start 06/11/18 at 11:00 Metoclopramide HCl (Reglan) 5 mg AC MEALS PO Last administered on 06/13/18 12:06; Admin Dose 5 MG; Start 06/11/18 at 11:30 Ondansetron HCl (Zofran Inj) 4 mg Q6H PRN IV NAUSEA AND/OR VOMITING Last administered on 06/12/18 15:15; Admin Dose 4 MG; Start 06/12/18 at 15:30 Lisinopril (Zestril) 2.5 mg QHS PO Last administered on 06/13/18 21:56; Admin Dose 2.5 MG; Start 06/13/18 at 21:00 MELLO SAUER MD Jun 14, 2018 11:19
[2018-06-14] MEDS ORDERED: HEPARIN 1000 UNITS/ML 10 ML INJ CATHETER ONE (14:30)
[2018-06-14] MEDS: DIGOXIN 0.125 MG TAB PO SCH (15:55)
--- NOTE | 2018-06-14 18:06 | CONS ---
Date/Time of Note Date/Time of Note DATE: 06/14/18 TIME: 18:00 Consult Date/Type/Reason Admit Date/Time Jun 06, 2018 at 08:52 Initial Consult Date 06/08/18 Type of Consultation: Urology Reason for Consultation Hematuria Requesting Provider: RUTH VAZQUEZ MD Subjective Patient denies having any pain. He has the Llamas catheter and the continuous bladder irrigation Objective Vital Signs Date Temp Pulse Resp B/P (MAP) Pulse Ox O2 O2 Flow FiO2 Time Delivery Rate 06/14/18 71 16:07 06/14/18 98.2 20 148/69 92 Nasal 15:54 (95) Cannula 06/14/18 3.0 15:50 Intake and Output 06/13/18 06/13/18 06/14/18 1515:00 23:00 07:00 IntakeIntake Total 100 ml 50 ml OutputOutput Total 22223 ml 950 ml BalanceBalance -47994 ml -900 ml Exam Patient is awake and alert. He denies having any severe pain. The Llamas catheter is draining clear urine with the bladder irrigation running at a low rate Results/Medications Result Diagram: 06/14/18 0535 06/14/18 0535 Results 24 hrs Laboratory Tests Test 06/14/18 05:35 White Blood Count 13.1 H Red Blood Count 3.64 L Hemoglobin 10.7 L Hematocrit 33.0 L Mean Corpuscular Volume 90.7 Mean Corpuscular Hemoglobin 29.4 Mean Corpuscular Hemoglobin Concent 32.4 Red Cell Distribution Width 13.9 Platelet Count 279 Mean Platelet Volume 9.8 Immature Granulocytes % 3.600 H Neutrophils % 78.7 H Lymphocytes % 4.3 L Monocytes % 8.2 Eosinophils % 4.6 Basophils % 0.6 Nucleated Red Blood Cells % 0.2 H Immature Granulocytes # 0.470 H Neutrophils # 10.3 H Lymphocytes # 0.6 L Monocytes # 1.1 H Eosinophils # 0.6 H Basophils # 0.1 Nucleated Red Blood Cells # 0.0 Sodium Level 135 Potassium Level 5.1 Chloride Level 93 L Carbon Dioxide Level 28 Anion Gap 14 H Blood Urea Nitrogen 63 H Creatinine 7.76 H Est Glomerular Filtrat Rate mL/min Glucose Level 102 Calcium Level 9.1 Medications Current Medications Dextrose (D50w Syringe) ONCE PRN IV DECREASED GLUCOSE Last administered on 06/06/18at 08:18; Admin Dose 50 ML; Start 06/06/18 at 08:00 Acetaminophen (Tylenol Tab) 500 mg Q4H PRN PO MILD PAIN(1-3)OR ELEVATED TEMP Last administered on 06/09/18at 15:06; Admin Dose 500 MG; Start 06/06/18 at 11:00 Allopurinol (Zyloprim) 300 mg DAILY PO Last administered on 06/14/18 10:00; Admin Dose 300 MG; Start 06/07/18 at 09:00 Aspirin (Aspirin) 81 mg DAILY PO Last administered on 06/14/18 10:00; Admin Dose 81 MG; Start 06/06/18 at 11:00 Atorvastatin Calcium (Lipitor) 20 mg QHS PO Last administered on 06/13/18 21:55; Admin Dose 20 MG; Start 06/06/18 at 21:00 Calcium Carbonate (Oyster Shell Calcium) 0.5 gm BID PO Last administered on 06/14/18 10:02; Admin Dose 0.5 GM; Start 06/06/18 at 21:00 Clopidogrel Bisulfate (plaVIX) 75 mg DAILY PO Last administered on 06/14/18 10:02; Admin Dose 75 MG; Start 06/06/18 at 11:00 Isosorbide Mononitrate (Imdur) 120 mg DAILY PO Last administered on 06/14/18 10:02; Admin Dose 120 MG; Start 06/06/18 at 11:00 Metoprolol Tartrate (Lopressor) 25 mg BID PO Last administered on 06/14/18 10:01; Admin Dose 25 MG; Start 06/06/18 at 11:00 Primidone (Mysoline) 25 mg HS PO Last administered on 06/13/18 21:55; Admin Dose 25 MG; Start 06/06/18 at 21:00 Tramadol HCl (Ultram) 50 mg Q6H PRN PO PAIN Last administered on 06/12/18 17:33; Admin Dose 50 MG; Start 06/06/18 at 11:00 Vancomycin HCl (Vanco Iv Per Pharmacy) VANCOMYCIN PER PHARMACY PER PROTOCOL XX ; Start 06/06/18 at 13:30 IV Flush (NS 3 ml) 3 ml PER PROTOCOL IV ; Start 06/06/18 at 14:00 Lorazepam (Ativan) 0.5 mg Q8H PRN PO ANXIETY Last administered on 06/09/18 04:39; Admin Dose 0.5 MG; Start 06/06/18 at 14:00 Acetaminophen/ Hydrocodone Bitart ([place] (5/325)) 1 tab Q6H PRN PO PAIN LEVEL 4-6 Last administered on 06/12/18 21:27; Admin Dose 1 TAB; Start 06/06/18 at 14:00 Docusate Sodium (Colace) 100 mg Q12H PRN PO CONSTIPATION Last administered on 06/12/18 13:15; Admin Dose 100 MG; Start 06/06/18 at 14:00 Famotidine (Pepcid) 20 mg Q24H PO Last administered on 06/13/18 21:55; Admin Dose 20 MG; Start 06/06/18 at 21:00 Digoxin (Digoxin) 0.0625 mg DAILY@1300 PO Last administered on 06/14/18 15:55; Admin Dose 0.0625 MG; Start 06/07/18 at 13:00 Furosemide (Lasix) 40 mg DAILY PO Last administered on 06/14/18 10:01; Admin Dose 40 MG; Start 06/07/18 at 09:00 Celecoxib (Celebrex) 100 mg BID PO Last administered on 06/14/18 10:00; Admin Dose 100 MG; Start 06/06/18 at 14:00 Epoetin Calos (Epogen (Esrd)) 10,000 units MoWeFr@17 SC Last administered on 06/12/18 17:34; Admin Dose 10,000 UNITS; Start 06/07/18 at 17:00 Multivit/Ca Carb/ B Cmplx/FA/Prenat ([place]any-Jose Luis) 1 tab DAILY PO Last administered on 06/14/18 10:02; Admin Dose 1 TAB; Start 06/08/18 at 09:00 Baclofen (Lioresal) 10 mg Q8H PRN PO Cramps Last administered on 06/08/18 22:34; Admin Dose 10 MG; Start 06/08/18 at 22:30 Morphine Sulfate (morphine) 0.5 mg Q4 PRN IV SEVERE PAIN LEVEL 7-10 Last administered on 06/14/18 07:24; Admin Dose 0.5 MG; Start 06/08/18 at 22:30 Heparin Sodium (Porcine) (Heparin (1000 Units/ml)) 2,800 unit PRN PRN CATHETER DIALYSIS Last administered on 06/12/18 15:23; Admin Dose 2,800 UNIT; Start 06/09/18 at 16:30 Vancomycin HCl 250 ml @ 125 mls/hr Q72H IVPB Last administered on 06/14/18 15:45; Admin Dose 125 MLS/HR; Start 06/11/18 at 10:00; Stop 06/15/18 at 11:00 Lidocaine (Lidoderm) 1 patch DAILY TD Last administered on 06/14/18 10:03; Admin Dose 1 PATCH; Start 06/11/18 at 11:00 Metoclopramide HCl (Reglan) 5 mg AC MEALS PO Last administered on 06/14/18 12:31; Admin Dose 5 MG; Start 06/11/18 at 11:30 Ondansetron HCl (Zofran Inj) 4 mg Q6H PRN IV NAUSEA AND/OR VOMITING Last administered on 06/12/18 15:15; Admin Dose 4 MG; Start 06/12/18 at 15:30 Lisinopril (Zestril) 2.5 mg QHS PO Last administered on 06/13/18 21:56; Admin Dose 2.5 MG; Start 06/13/18 at 21:00 Assessment/Plan Chief Complaint/Hosp Course 88-year-old male had gone to the bathroom both for stool and urination. He was trying to get off of the toilet and slid and actually got himself trapped between the toilet and the bathtub. He did not have head trauma and he did not have loss of consciousness. He did not have chest pain or palpitations. He was stuck in that position for minimum of 2 hours before finally requesting external help. He was brought to the emergency room and admitted. He is on hemodialysis and went to the emergency room try to get a urine specimen from him he was not able to urinate and they did a straight cath on him and since then he has had gross hematuria. Therefore a urological consultation was requested. The patient has been on hemodialysis for about 5 years. He still makes urine and urinates once at night and about 4 times a day. He has undergone a transurethral resection of the prostate when he was 59 years old. Because of the gross hematuria a 24 [place] Llamas catheter, three-way with a 30 cc balloon was inserted on 06/08/2018 and the bladder was irrigated thoroughly and the blood clots were removed. Patient was started on continuous bladder irrigation. The return from the irrigation is now clear . The patient had elevated troponin . He is on Plavix and aspirin and apparently he needs to stay on them because of his heart problems. One urine cytology is reported as no malignant cells. He will need a cystoscopy when his medical condition allows. For now continue the bladder irrigation and gradually slow it down to where we could stop it. Hopefully we could stop it tomorrow morning then we could discontinue the Llamas catheter.. HAI URIBE MD Jun 14, 2018 18:06
[2018-06-14] MEDS: EPOETIN 10000 UNITS/1 ML INJ (ESRD) SC SCH (18:42)
[2018-06-14] MEDS: HYDROCODONE/APAP (5/325) TAB PO PRN (20:33)
[2018-06-14] MEDS: ATORVASTATIN 20 MG TAB PO SCH (20:33)
[2018-06-14] MEDS: LORAZEPAM 0.5 MG TAB PO PRN (20:33)
[2018-06-14] MEDS: FAMOTIDINE 20 MG TAB PO SCH (20:33)
[2018-06-14] MEDS: PRIMIDONE 50 MG TAB PO SCH (20:34)
[2018-06-14] MEDS: LISINOPRIL 5 MG TAB PO SCH (20:35)
[2018-06-15] VITALS (9 sets, daily range): BP systolic 111–163; BP diastolic 51–72; PULSE 68–125; RESP 20–22
[2018-06-15] MEDS: METOCLOPRAMIDE 5 MG TAB PO SCH ×3 (06:08→17:39)
[2018-06-15] MEDS: ALLOPURINOL 300 MG TAB PO SCH (09:06)
[2018-06-15] MEDS: METOPROLOL 25 MG TAB PO SCH ×2 (09:07→20:52)
[2018-06-15] MEDS: CLOPIDOGREL 75 MG TAB PO SCH (09:07)
[2018-06-15] MEDS: CELECOXIB 100 MG CAP PO SCH ×2 (09:07→20:52)
[2018-06-15] MEDS: ISOSORBIDE MONONITRATE(SR)60 MG TAB PO SCH (09:08)
[2018-06-15] MEDS: CALCIUM CARBONATE 1.25 GM TAB PO SCH ×2 (09:08→20:50)
[2018-06-15] MEDS: ASPIRIN 81 MG TAB PO SCH (09:08)
[2018-06-15] MEDS: MULTIVIT/CA CARB/B CMPLX/FA TAB PO SCH (09:08)
[2018-06-15] MEDS: FUROSEMIDE 40 MG TAB PO SCH (09:09)
[2018-06-15] MEDS: LIDOCAINE 5% PATCH TD SCH (09:12)
--- NOTE | 2018-06-15 09:51 | CONS ---
Date/Time of Note Date/Time of Note DATE: 06/15/18 TIME: 09:49 Consult Date/Type/Reason Admit Date/Time Jun 06, 2018 at 08:52 Initial Consult Date 06/08/18 Type of Consultation: Urology Reason for Consultation Hematuria Requesting Provider: RUTH VAZQUEZ MD Subjective The patient is awake and his is at his bedside. He is comfortable and denies any pain Objective Vital Signs Date Temp Pulse Resp B/P (MAP) Pulse Ox O2 O2 Flow FiO2 Time Delivery Rate 06/15/18 77 08:00 06/15/18 97.6 22 163/72 96 Nasal 2.0 07:42 (102) Cannula Intake and Output 06/14/18 06/14/18 06/15/18 1515:00 23:00 07:00 IntakeIntake Total 120 ml 380 ml OutputOutput Total 2000 ml 500 ml BalanceBalance -1880 ml -120 ml Exam The Llamas catheter is draining clear urine with the continuous bladder irrigation at a low rate. Results/Medications Result Diagram: 06/15/1818 06/15/18 0518 Results 24 hrs Laboratory Tests Test 06/15/18 05:18 White Blood Count 16.6 #H Red Blood Count 3.56 L Hemoglobin 10.5 L Hematocrit 32.7 L Mean Corpuscular Volume 91.9 Mean Corpuscular Hemoglobin 29.5 Mean Corpuscular Hemoglobin Concent 32.1 Red Cell Distribution Width 14.2 Platelet Count 300 Mean Platelet Volume 9.9 Immature Granulocytes % 3.200 H Neutrophils % 81.1 H Lymphocytes % 4.0 L Monocytes % 7.2 Eosinophils % 3.7 Basophils % 0.8 Nucleated Red Blood Cells % 0.2 H Immature Granulocytes # 0.530 H Neutrophils # 13.5 H Lymphocytes # 0.7 L Monocytes # 1.2 H Eosinophils # 0.6 H Basophils # 0.1 Nucleated Red Blood Cells # 0.0 Sodium Level 137 Potassium Level 4.9 Chloride Level 99 Carbon Dioxide Level 26 Anion Gap 12 Blood Urea Nitrogen 41 #H Creatinine 5.51 #H Est Glomerular Filtrat Rate mL/min Glucose Level 98 Calcium Level 9.3 Phosphorus Level 4.1 Medications Current Medications Dextrose (D50w Syringe) ONCE PRN IV DECREASED GLUCOSE Last administered on 06/06/18at 08:18; Admin Dose 50 ML; Start 06/06/18 at 08:00 Acetaminophen (Tylenol Tab) 500 mg Q4H PRN PO MILD PAIN(1-3)OR ELEVATED TEMP Last administered on 06/09/18 15:06; Admin Dose 500 MG; Start 06/06/18 at 11:00 Allopurinol (Zyloprim) 300 mg DAILY PO Last administered on 06/15/18 09:06; Admin Dose 300 MG; Start 06/07/18 at 09:00 Aspirin (Aspirin) 81 mg DAILY PO Last administered on 06/15/18 09:08; Admin Dose 81 MG; Start 06/06/18 at 11:00 Atorvastatin Calcium (Lipitor) 20 mg QHS PO Last administered on 06/14/18 20:33; Admin Dose 20 MG; Start 06/06/18 at 21:00 Calcium Carbonate (Oyster Shell Calcium) 0.5 gm BID PO Last administered on 06/15/18 09:08; Admin Dose 0.5 GM; Start 06/06/18 at 21:00 Clopidogrel Bisulfate (plaVIX) 75 mg DAILY PO Last administered on 06/15/18 09:07; Admin Dose 75 MG; Start 06/06/18 at 11:00 Isosorbide Mononitrate (Imdur) 120 mg DAILY PO Last administered on 06/15/18 09:08; Admin Dose 120 MG; Start 06/06/18 at 11:00 Metoprolol Tartrate (Lopressor) 25 mg BID PO Last administered on 06/15/18 09 :07; Admin Dose 25 MG; Start 06/06/18 at 11:00 Primidone (Mysoline) 25 mg HS PO Last administered on 06/14/18 20:34; Admin Dose 25 MG; Start 06/06/18 at 21:00 Tramadol HCl (Ultram) 50 mg Q6H PRN PO PAIN Last administered on 06/12/18 17:33; Admin Dose 50 MG; Start 06/06/18 at 11:00 Vancomycin HCl (Vanco Iv Per Pharmacy) VANCOMYCIN PER PHARMACY PER PROTOCOL XX ; Start 06/06/18 at 13:30 IV Flush (NS 3 ml) 3 ml PER PROTOCOL IV ; Start 06/06/18 at 14:00 Lorazepam (Ativan) 0.5 mg Q8H PRN PO ANXIETY Last administered on 06/14/18 20:33; Admin Dose 0.5 MG; Start 06/06/18 at 14:00 Acetaminophen/ Hydrocodone Bitart ([place] (5/325)) 1 tab Q6H PRN PO PAIN LEVEL 4-6 Last administered on 06/14/18 20:33; Admin Dose 1 TAB; Start 06/06/18 at 14:00 Docusate Sodium (Colace) 100 mg Q12H PRN PO CONSTIPATION Last administered on 06/12/18 13:15; Admin Dose 100 MG; Start 06/06/18 at 14:00 Famotidine (Pepcid) 20 mg Q24H PO Last administered on 06/14/18 20:33; Admin Dose 20 MG; Start 06/06/18 at 21:00 Digoxin (Digoxin) 0.0625 mg DAILY@1300 PO Last administered on 06/14/18 15:55; Admin Dose 0.0625 MG; Start 06/07/18 at 13:00 Furosemide (Lasix) 40 mg DAILY PO Last administered on 06/15/18 09:09; Admin Dose 40 MG; Start 06/07/18 at 09:00 Celecoxib (Celebrex) 100 mg BID PO Last administered on 06/15/18 09:07; Admin Dose 100 MG; Start 06/06/18 at 14:00 Epoetin Calos (Epogen (Esrd)) 10,000 units MoWeFr@17 SC Last administered on 06/14/18 18:42; Admin Dose 10,000 UNITS; Start 06/07/18 at 17:00 Multivit/Ca Carb/ B Cmplx/FA/Prenat (Fany-Jose Luis) 1 tab DAILY PO Last administered on 06/15/18 09:08; Admin Dose 1 TAB; Start 06/08/18 at 09:00 Baclofen (Lioresal) 10 mg Q8H PRN PO Cramps Last administered on 06/08/18 22:34; Admin Dose 10 MG; Start 06/08/18 at 22:30 Morphine Sulfate (morphine) 0.5 mg Q4 PRN IV SEVERE PAIN LEVEL 7-10 Last administered on 06/14/18 07:24; Admin Dose 0.5 MG; Start 06/08/18 at 22:30 Heparin Sodium (Porcine) (Heparin (1000 Units/ml)) 2,800 unit PRN PRN CATHETER DIALYSIS Last administered on 06/12/18 15:23; Admin Dose 2,800 UNIT; Start 06/09/18 at 16:30 Vancomycin HCl 250 ml @ 125 mls/hr Q72H IVPB Last administered on 06/14/18 15:45; Admin Dose 125 MLS/HR; Start 06/11/18 at 10:00; Stop 06/15/18 at 11:00 Lidocaine (Lidoderm) 1 patch DAILY TD Last administered on 06/15/18 09:12; Admin Dose 1 PATCH; Start 06/11/18 at 11:00 Metoclopramide HCl (Reglan) 5 mg AC MEALS PO Last administered on 06/15/18 06:08; Admin Dose 5 MG; Start 06/11/18 at 11:30 Ondansetron HCl (Zofran Inj) 4 mg Q6H PRN IV NAUSEA AND/OR VOMITING Last administered on 06/12/18 15:15; Admin Dose 4 MG; Start 06/12/18 at 15:30 Lisinopril (Zestril) 2.5 mg QHS PO Last administered on 06/14/18 20:35; Admin Dose 2.5 MG; Start 06/13/18 at 21:00 Assessment/Plan Chief Complaint/Hosp Course 88-year-old male had gone to the bathroom both for stool and urination. He was trying to get off of the toilet and slid and actually got himself trapped between the toilet and the bathtub. He did not have head trauma and he did not have loss of consciousness. He did not have chest pain or palpitations. He was stuck in that position for minimum of 2 hours before finally requesting external help. He was brought to the emergency room and admitted. He is on hemodialysis and went to the emergency room try to get a urine specimen from him he was not able to urinate and they did a straight cath on him and since then he has had gross hematuria. Therefore a urological consultation was requested. The patient has been on hemodialysis for about 5 ye ars. He still makes urine and urinates once at night and about 4 times a day. He has undergone a transurethral resection of the prostate when he was 59 years old. Because of the gross hematuria a 24 [place] Llamas catheter, three-way with a 30 cc balloon was inserted on 06/08/2018 and the bladder was irrigated thoroughly and the blood clots were removed. Patient was started on continuous bladder irrigation. The return from the irrigation is now clear . The patient had elevated troponin . He is on Plavix and aspirin and apparently he needs to stay on them because of his heart problems. One urine cytology is reported as no malignant cells. He will need a cystoscopy when his medical condition allows. I did discuss that with his . For now I did stop the bladder irrigation and hopefully the urine remains clear. Then we could discontinue the Llamas catheter if not needed for output monitoring. HAI URIBE MD Jun 15, 2018 09:51
--- NOTE | 2018-06-15 11:49 | CONS ---
Date/Time of Note Date/Time of Note DATE: 06/15/18 TIME: 11:47 Assessment/Plan Assessment/Plan Assessment/Plan 1. CKD, with next HD Sunday 2. Back pain some better 3. Elev wbc, will repeat u/a and cult 4. Cognition is better 5. Hematuria, urol eval noted Result Diagram: 06/15/18 0518 06/15/18 0518 Results 24hrs Laboratory Tests Test 06/15/18 05:18 White Blood Count 16.6 #H Red Blood Count 3.56 L Hemoglobin 10.5 L Hematocrit 32.7 L Mean Corpuscular Volume 91.9 Mean Corpuscular Hemoglobin 29.5 Mean Corpuscular Hemoglobin Concent 32.1 Red Cell Distribution Width 14.2 Platelet Count 300 Mean Platelet Volume 9.9 Immature Granulocytes % 3.200 H Neutrophils % 81.1 H Lymphocytes % 4.0 L Monocytes % 7.2 Eosinophils % 3.7 Basophils % 0.8 Nucleated Red Blood Cells % 0.2 H Immature Granulocytes # 0.530 H Neutrophils # 13.5 H Lymphocytes # 0.7 L Monocytes # 1.2 H Eosinophils # 0.6 H Basophils # 0.1 Nucleated Red Blood Cells # 0.0 Sodium Level 137 Potassium Level 4.9 Chloride Level 99 Carbon Dioxide Level 26 Anion Gap 12 Blood Urea Nitrogen 41 #H Creatinine 5.51 #H Est Glomerular Filtrat Rate mL/min Glucose Level 98 Calcium Level 9.3 Phosphorus Level 4.1 Consultation Date/Type/Reason Admit Date/Time Jun 06, 2018 at 08:52 Initial Consult Date Requesting Provider: RUTH VAZQUEZ MD Detailed Summary Respiratory: No cough, No shortness of breath Cardiovascular: No chest pain Gastrointestinal: no complaints Musculoskeletal: back pain (mild) Exam/Review of Systems Vital Signs Vitals Vital Signs Date Temp Pulse Resp B/P (MAP) Pulse Ox O2 O2 Flow FiO2 Time Delivery Rate 06/15/18 77 08:00 06/15/18 Nasal 3.0 08:00 Cannula 06/15/18 97.6 22 163/72 96 07:42 (102) Intake and Output 06/14/18 06/14/18 06/15/18 1515:00 23:00 07:00 IntakeIntake Total 120 ml 380 ml OutputOutput Total 2000 ml 500 ml BalanceBalance -1880 ml -120 ml Exam Neck: No jvd Respiratory: clear to auscultation, diminished breath sounds Cardiovascular: regular rate and rhythm Gastrointestinal: soft Extremities: No edema Medications Medications Current Medications Dextrose (D50w Syringe) ONCE PRN IV DECREASED GLUCOSE Last administered on 06/06/18 08:18; Admin Dose 50 ML; Start 06/06/18 at 08:00 Acetaminophen (Tylenol Tab) 500 mg Q4H PRN PO MILD PAIN(1-3)OR ELEVATED TEMP Last administered on 06/09/18 15:06; Admin Dose 500 MG; Start 06/06/18 at 11:00 Allopurinol (Zyloprim) 300 mg DAILY PO Last administered on 06/15/18 09:06; Admin Dose 300 MG; Start 06/07/18 at 09:00 Aspirin (Aspirin) 81 mg DAILY PO Last administered on 06/15/18 09:08; Admin Dose 81 MG; Start 06/06/18 at 11:00 Atorvastatin Calcium (Lipitor) 20 mg QHS PO Last administered on 06/14/18 20:33; Admin Dose 20 MG; Start 06/06/18 at 21:00 Calcium Carbonate (Oyster Shell Calcium) 0.5 gm BID PO Last administered on 06/15/18 09:08; Admin Dose 0.5 GM; Start 06/06/18 at 21:00 Clopidogrel Bisulfate (plaVIX) 75 mg DAILY PO Last administered on 06/15/18 09:07; Admin Dose 75 MG; Start 06/06/18 at 11:00 Isosorbide Mononitrate (Imdur) 120 mg DAILY PO Last administered on 06/15/18 09:08; Admin Dose 120 MG; Start 06/06/18 at 11:00 Metoprolol Tartrate (Lopressor) 25 mg BID PO Last administered on 06/15/18 09:07; Admin Dose 25 MG; Start 06/06/18 at 11:00 Primidone (Mysoline) 25 mg HS PO Last administered on 06/14/18 20:34; Admin Dose 25 MG; Start 06/06/18 at 21:00 Tramadol HCl (Ultram) 50 mg Q6H PRN PO PAIN Last administered on 06/12/18 17:33; Admin Dose 50 MG; Start 06/06/18 at 11:00 Vancomycin HCl (Vanco Iv Per Pharmacy) VANCOMYCIN PER PHARMACY PER PROTOCOL XX ; Start 06/06/18 at 13:30 IV Flush (NS 3 ml) 3 ml PER PROTOCOL IV ; Start 06/06/18 at 14:00 Lorazepam (Ativan) 0.5 mg Q8H PRN PO ANXIETY Last administered on 06/14/18 20:33; Admin Dose 0.5 MG; Start 06/06/18 at 14:00 Acetaminophen/ Hydrocodone Bitart ([place] (5/325)) 1 tab Q6H PRN PO PAIN LEVEL 4-6 Last administered on 06/14/18 20:33; Admin Dose 1 TAB; Start 06/06/18 at 14:00 Docusate Sodium (Colace) 100 mg Q12H PRN PO CONSTIPATION Last administered on 06/12/18 13:15; Admin Dose 100 MG; Start 06/06/18 at 14:00 Famotidine (Pepcid) 20 mg Q24H PO Last administered on 06/14/18 20:33; Admin Dose 20 MG; Start 06/06/18 at 21:00 Digoxin (Digoxin) 0.0625 mg DAILY@1300 PO Last administered on 06/14/18 15:55; Admin Dose 0.0625 MG; Start 06/07/18 at 13:00 Furosemide (Lasix) 40 mg DAILY PO Last administered on 06/15/18 09:09; Admin Dose 40 MG; Start 06/07/18 at 09:00 Celecoxib (Celebrex) 100 mg BID PO Last administered on 06/15/18 09:07; Admin Dose 100 MG; Start 06/06/18 at 14:00 Epoetin [place] (Epogen (Esrd)) 10,000 units MoWeFr@17 SC Last administered on 06/14/18 18:42; Admin Dose 10,000 UNITS; Start 06/07/18 at 17:00 Multivit/Ca Carb/ B Cmplx/FA/Prenat (Fany-Jose Luis) 1 tab DAILY PO Last administered on 06/15/18 09:08; Admin Dose 1 TAB; Start 06/08/18 at 09:00 Baclofen (Lioresal) 10 mg Q8H PRN PO Cramps Last administered on 06/08/18at 22:34; Admin Dose 10 MG; Start 12/29/18 at 22:30 Morphine Sulfate (morphine) 0.5 mg Q4 PRN IV SEVERE PAIN LEVEL 7-10 Last administered on 06/14/18 07:24; Admin Dose 0.5 MG; Start 06/08/18 at 22:30 Heparin Sodium (Porcine) (Heparin (1000 Units/ml)) 2,800 unit PRN PRN CATHETER DIALYSIS Last administered on 06/12/18 15:23; Admin Dose 2,800 UNIT; Start 06/09/18 at 16:30 Lidocaine (Lidoderm) 1 patch DAILY TD Last administered on 06/15/18 09:12; Admin Dose 1 PATCH; Start 06/11/18 at 11:00 Metoclopramide HCl (Reglan) 5 mg AC MEALS PO Last administered on 06/15/18 06:08; Admin Dose 5 MG; Start 06/11/18 at 11:30 Ondansetron HCl (Zofran Inj) 4 mg Q6H PRN IV NAUSEA AND/OR VOMITING Last administered on 06/12/18 15:15; Admin Dose 4 MG; Start 06/12/18 at 15:30 Lisinopril (Zestril) 2.5 mg QHS PO Last administered on 06/14/18 20:35; Admin Dose 2.5 MG; Start 06/13/18 at 21:00 JANETH SHEPARD MD Jun 15, 2018 11:49
--- NOTE | 2018-06-15 12:44 | PN ---
Date/Time of Note Date/Time of Note DATE: 06/15/18 TIME: 12:33 Assessment/Plan VTE [place]axis [place] [facility] [place]: 8 SCD applied (from [facility]): Yes Pharmacological prophylaxis: heparin Lines/Catheters IV Catheter Type (from [facility]): per A- cath Urinary Cath still in place: Yes Reason Cath still needed: urinary retention Assessment/Plan Problems: (1) Hematuria Status: Acute Comment: Urine appears more clear. Llamas irrigation clamped. Defer to urology. Qualifiers: Hematuria type: unspecified type Qualified Codes: R31.9 - Hematuria, unspecified (2) Prostatic hypertrophy Status: Chronic Comment: Cont. treatment per urology (3) Non-STEMI (non-ST elevated myocardial infarction) Onset Date: ~ 06/06/2018 Status: Acute Comment: Pt. stable. Cardiology following peripherally. (4) CAD (coronary artery disease) Status: Chronic Comment: Cont. clopidogrel and ASA and isosorbide Qualifiers: Coronary Disease-Associated Artery/Lesion type: [place] artery [place] vs. transplanted heart: [place] heart Associated angina: without angina Qualified Codes: I25.10 - Atherosclerotic heart disease of [place] coronary artery without angina pectoris (5) Hypertension Status: Chronic Comment: BP controlled. Cont. lisinopril and metoprolol Qualifiers: Hypertension type: essential hypertension Qualified Codes: I10 - Essential (primary) hypertension (6) Cerebrovascular disease Status: Chronic Comment: Cont. clopidogrel and ASA (7) Peripheral vascular disease Status: Chronic Comment: Cont. clopidogrel and ASA (8) Paroxysmal atrial fibrillation Status: Chronic Comment: Cont. digoxin and metoprolol. No venous anticoagulation given bleeding risk (9) Systolic CHF with reduced left ventricular function, NYHA class 3 Status: Chronic Comment: Stable. Cont. furosemide, digoxin, HD. (10) Hyperlipidemia Status: Chronic Comment: Cont. atorvastatin Qualifiers: Hyperlipidemia type: pure hypercholesterolemia Qualified Codes: E78.00 - Pure hypercholesterolemia, unspecified (11) Hyperuricemia Status: Chronic Comment: Cont. allopurinol (12) Hyperkalemia Status: Acute Comment: Stable in upper end of normal range. Defer to nephrology and continue HD (13) End stage renal disease on dialysis Status: Chronic Comment: New vascular access placed by vascular surgery. Defer to nephrology to continue HD (14) Fall with no significant injury Status: Acute Comment: PT to help pt. start moving as pain is controlled. Qualifiers: Encounter type: initial encounter Qualified Codes: W19.XXXA - Unspecified fall, initial encounter (15) Tremor Status: Chronic Comment: Cont. primidone (16) Poor appetite Status: Acute Comment: Improved w/ metoclopramide. Will continue. Result Diagram: 06/15/1818 06/15/18 0518 Results 24hrs Laboratory Tests Test 06/15/18 05:18 White Blood Count 16.6 #H Red Blood Count 3.56 L Hemoglobin 10.5 L Hematocrit 32.7 L Mean Corpuscular Volume 91.9 Mean Corpuscular Hemoglobin 29.5 Mean Corpuscular Hemoglobin Concent 32.1 Red Cell Distribution Width 14.2 Platelet Count 300 Mean Platelet Volume 9.9 Immature Granulocytes % 3.200 H Neutrophils % 81.1 H Lymphocytes % 4.0 L Monocytes % 7.2 Eosinophils % 3.7 Basophils % 0.8 Nucleated Red Blood Cells % 0.2 H Immature Granulocytes # 0.530 H Neutrophils # 13.5 H Lymphocytes # 0.7 L Monocytes # 1.2 H Eosinophils # 0.6 H Basophils # 0.1 Nucleated Red Blood Cells # 0.0 Sodium Level 137 Potassium Level 4.9 Chloride Level 99 Carbon Dioxide Level 26 Anion Gap 12 Blood Urea Nitrogen 41 #H Creatinine 5.51 #H Est Glomerular Filtrat Rate mL/min Glucose Level 98 Calcium Level 9.3 Phosphorus Level 4.1 Subjective 24 Hr Interval Summary Subjective hx not possible: pt non-verbal (pt. too weak to provide adequate history. However, reports he is doing better. Llamas irrigation clamped by urology and back pain controlled w/ lidoderm. Would like pt. moving out of bed. ) Constitutional: improved Respiratory: no complaints Cardiovascular: no complaints Gastrointestinal: no complaints Genitourinary: no complaints Musculoskeletal: no complaints Neurologic: no complaints Psychological: confusion Exam/Review of Systems Vital Signs Vitals VS - Last 72 Hours, by Label Date Temp Pulse Resp B/P (MAP) Pulse Ox O2 O2 Flow FiO2 Time Delivery Rate 06/15/18 97.4 80 22 111/56 96 Nasal 2.0 12:14 (74) Cannula 06/15/18 83 12:00 06/15/18 77 08:00 06/15/18 Nasal 3.0 08:00 Cannula 06/15/18 97.6 78 22 163/72 96 Nasal 2.0 07:42 (102) Cannula 06/15/18 125 06:03 06/15/18 80 04:00 06/15/18 98.3 68 20 145/66 99 Nasal 04:00 (92) Cannula 06/15/18 2.0 01:20 06/15/18 73 00:00 06/14/18 2.0 23:58 06/14/18 98.0 64 20 140/62 98 Nasal 23:54 (88) Cannula 06/14/18 80 20:00 06/14/18 Nasal 3.0 20:00 Cannula 06/14/18 98.5 68 20 152/67 97 Nasal 19:48 (95) Cannula 06/14/18 71 16:07 06/14/18 98.2 62 20 148/69 92 Nasal 15:54 (95) Cannula 06/14/18 72 18 161/73 99 Nasal 3.0 15:50 (102) Cannula 06/14/18 72 14:56 06/14/18 70 14:41 06/14/18 79 14:26 06/14/18 71 14:11 06/14/18 70 14:03 06/14/18 67 13:56 06/14/18 66 13:48 06/14/18 67 13:41 06/14/18 73 13:26 06/14/18 66 13:11 06/14/18 67 12:56 06/14/18 65 12:41 06/14/18 68 12:26 06/14/18 67 12:11 06/14/18 68 12:08 06/14/18 65 11:54 06/14/18 66 16 135/57 99 Nasal 3.0 11:54 (83) Cannula 06/14/18 98.3 64 18 131/58 98 Nasal 11:50 (82) Cannula 06/14/18 75 08:18 06/14/18 98.2 75 18 156/70 99 Nasal 08:15 (98) Cannula 06/14/18 Nasal 3.0 08:00 Cannula 06/14/18 2.0 05:43 06/14/18 98.4 67 18 155/70 100 04:12 (98) 06/14/18 63 04:00 06/14/18 98.3 70 18 148/65 100 00:42 (92) 06/14/18 67 00:00 06/13/18 2.0 22:36 06/13/18 Nasal 2.0 21:32 Cannula 06/13/18 98.6 68 18 110/54 98 20:25 (72) 06/13/18 76 20:00 06/13/18 68 16:01 06/13/18 97.8 74 18 149/67 98 Nasal 15:24 (94) Cannula 06/13/18 2.0 12:55 06/13/18 66 12:01 06/13/18 98.2 67 18 115/58 99 Nasal 11:40 (77) Cannula 06/13/18 77 08:01 06/13/18 Nasal 2.0 08:00 Cannula 06/13/18 98.0 83 18 133/62 98 Nasal 07:11 (85) Cannula 06/13/18 74 04:00 06/13/18 98.6 76 18 113/56 93 03:32 (75) 06/13/18 69 00:00 06/12/18 98.7 73 18 105/53 96 23:41 (70) 06/12/18 Nasal 2.0 21:28 Cannula 06/12/18 97.7 71 18 109/58 99 20:21 (75) 06/12/18 69 20:00 06/12/18 68 16:09 06/12/18 68 16 120/52 99 Nasal 2.0 15:50 (74) Cannula 06/12/18 98.6 66 18 120/52 96 Nasal 15:42 (74) Cannula 06/12/18 69 15:15 06/12/18 67 15:00 06/12/18 66 14:45 06/12/18 66 14:30 06/12/18 68 14:20 06/12/18 69 14:15 06/12/18 68 14:00 06/12/18 66 13:45 06/12/18 72 13:30 06/12/18 69 13:15 06/12/18 64 13:00 06/12/18 67 12:45 Vital Signs Date Temp Pulse Resp B/P (MAP) Pulse Ox O2 O2 Flow FiO2 Time Delivery Rate 06/15/18 97.4 80 22 111/56 96 Nasal 2.0 12:14 (74) Cannula Intake and Output 06/14/18 06/14/18 06/15/18 1515:00 23:00 07:00 IntakeIntake Total 120 ml 380 ml OutputOutput Total 2000 ml 500 ml BalanceBalance -1880 ml -120 ml Exam Constitutional: alert, frail Psych: confusion Respiratory: clear to auscultation, normal air movement Cardiovascular: regular rate and rhythm, nl pulses; No edema, No murmurs/extra sounds, No rub Gastrointestinal: soft, nl liver, spleen, non-tender, bowel sounds; No mass, No rebound or guarding Musculoskeletal: nl extremities to inspection Extremities: normal pulses; No cyanosis, No clubbing, No edema Neurological: lethargic (but arousable) Medications Medications Current Medications Dextrose (D50w Syringe) ONCE PRN IV DECREASED GLUCOSE Last administered on 06/06/18at 08:18; Admin Dose 50 ML; Start 06/06/18 at 08:00 Acetaminophen (Tylenol Tab) 500 mg Q4H PRN PO MILD PAIN(1-3)OR ELEVATED TEMP Last administered on 06/09/18 15:06; Admin Dose 500 MG; Start 06/06/18 at 11:00 Allopurinol (Zyloprim) 300 mg DAILY PO Last administered on 06/15/18 09:06; Admin Dose 300 MG; Start 06/07/18 at 09:00 Aspirin (Aspirin) 81 mg DAILY PO Last administered on 06/15/18 09:08; Admin Dose 81 MG; Start 06/06/18 at 11:00 Atorvastatin Calcium (Lipitor) 20 mg QHS PO Last administered on 06/14/18 20:33; Admin Dose 20 MG; Start 06/06/18 at 21:00 Calcium Carbonate (Oyster Shell Calcium) 0.5 gm BID PO Last administered on 09:08; Admin Dose 0.5 GM; Start 06/06/18 at 21:00 Clopidogrel Bisulfate (plaVIX) 75 mg DAILY PO Last administered on 06/15/18 09:07; Admin Dose 75 MG; Start 06/06/18 at 11:00 Isosorbide Mononitrate (Imdur) 120 mg DAILY PO Last administered on 06/15/18 09:08; Admin Dose 120 MG; Start 06/06/18 at 11:00 Metoprolol Tartrate (Lopressor) 25 mg BID PO Last administered on 06/15/18 09:07; Admin Dose 25 MG; Start 06/06/18 at 11:00 Primidone (Mysoline) 25 mg HS PO Last administered on 06/14/18 20:34; Admin Dose 25 MG; Start 06/06/18 at 21:00 Tramadol HCl (Ultram) 50 mg Q6H PRN PO PAIN Last administered on 06/12/18 17:33; Admin Dose 50 MG; Start 06/06/18 at 11:00 Vancomycin HCl (Vanco Iv Per Pharmacy) VANCOMYCIN PER PHARMACY PER PROTOCOL XX ; Start 06/06/18 at 13:30 IV Flush (NS 3 ml) 3 ml PER PROTOCOL IV ; Start 06/06/18 at 14:00 Lorazepam (Ativan) 0.5 mg Q8H PRN PO ANXIETY Last administered on 06/14/18 20:33; Admin Dose 0.5 MG; Start 06/06/18 at 14:00 Acetaminophen/ Hydrocodone Bitart ([place] (5/325)) 1 tab Q6H PRN PO PAIN LEVEL 4-6 Last administered on 06/14/18 20:33; Admin Dose 1 TAB; Start 06/06/18 at 14:00 Docusate Sodium (Colace) 100 mg Q12H PRN PO CONSTIPATION Last administered on 06/12/18 13:15; Admin Dose 100 MG; Start 06/06/18 at 14:00 Famotidine (Pepcid) 20 mg Q24H PO Last administered on 06/14/18 20:33; Admin Dose 20 MG; Start 06/06/18 at 21:00 Digoxin (Digoxin) 0.0625 mg DAILY@1300 PO Last administered on 06/14/18 15:55; Admin Dose 0.0625 MG; Start 06/07/18 at 13:00 Furosemide (Lasix) 40 mg DAILY PO Last administered on 06/15/18 09:09; Admin Dose 40 MG; Start 06/07/18 at 09:00 Celecoxib (Celebrex) 100 mg BID PO Last administered on 06/15/18 09:07; Admin Dose 100 MG; Start 06/06/18 at 14:00 Epoetin Calos (Epogen (Esrd)) 10,000 units MoWeFr@17 SC Last administered on 06/14/18 18:42; Admin Dose 10,000 UNITS; Start 06/07/18 at 17:00 Multivit/Ca Carb/ B Cmplx/FA/Prenat (Fany-Jose Luis) 1 tab DAILY PO Last administered on 06/15/18 09:08; Admin Dose 1 TAB; Start 06/08/18 at 09:00 Baclofen (Lioresal) 10 mg Q8H PRN PO Cramps Last administered on 06/08/18 22:34; Admin Dose 10 MG; Start 06/08/18 at 22:30 Morphine Sulfate (morphine) 0.5 mg Q4 PRN IV SEVERE PAIN LEVEL 7-10 Last administered on 06/14/18 07:24; Admin Dose 0.5 MG; Start 06/08/18 at 22:30 Heparin Sodium (Porcine) (Heparin (1000 Units/ml)) 2,800 unit PRN PRN CATHETER DIALYSIS Last administered on 06/12/18 15:23; Admin Dose 2,800 UNIT; Start 06/09/18 at 16:30 Lidocaine (Lidoderm) 1 patch DAILY TD Last administered on 06/15/18 09:12; Admin Dose 1 PATCH; Start 06/11/18 at 11:00 Metoclopramide HCl (Reglan) 5 mg AC MEALS PO Last administered on 06/15/18 12:00; Admin Dose 5 MG; Start 06/11/18 at 11:30 Ondansetron HCl (Zofran Inj) 4 mg Q6H PRN IV NAUSEA AND/OR VOMITING Last administered on 06/12/18 15:15; Admin Dose 4 MG; Start 06/12/18 at 15:30 Lisinopril (Zestril) 2.5 mg QHS PO Last administered on 06/14/18 20:35; Admin Dose 2.5 MG; Start 06/13/18 at 21:00 SAMUEL ABRAMS MD Jun 15, 2018 12:44
[2018-06-15] MEDS: DIGOXIN 0.125 MG TAB PO SCH (13:55)
[2018-06-15] MEDS: ATORVASTATIN 20 MG TAB PO SCH (20:50)
[2018-06-15] MEDS: PRIMIDONE 50 MG TAB PO SCH (20:50)
[2018-06-15] MEDS: LISINOPRIL 5 MG TAB PO SCH (20:51)
[2018-06-15] MEDS: FAMOTIDINE 20 MG TAB PO SCH (20:52)
[2018-06-15] MEDS: HYDROCODONE/APAP (5/325) TAB PO PRN (20:53)
[2018-06-16] VITALS (9 sets, daily range): BP systolic 98–125; BP diastolic 47–58; PULSE 72–80; RESP 20–22
[2018-06-16] MEDS: METOCLOPRAMIDE 5 MG TAB PO SCH ×3 (06:49→17:01)
[2018-06-16] MEDS: MULTIVIT/CA CARB/B CMPLX/FA TAB PO SCH (08:37)
[2018-06-16] MEDS: CALCIUM CARBONATE 1.25 GM TAB PO SCH ×2 (08:38→21:13)
[2018-06-16] MEDS: ISOSORBIDE MONONITRATE(SR)60 MG TAB PO SCH (08:38)
[2018-06-16] MEDS: FUROSEMIDE 40 MG TAB PO SCH (08:38)
[2018-06-16] MEDS: ASPIRIN 81 MG TAB PO SCH (08:39)
[2018-06-16] MEDS: CLOPIDOGREL 75 MG TAB PO SCH (08:39)
[2018-06-16] MEDS: CELECOXIB 100 MG CAP PO SCH ×2 (08:39→21:13)
[2018-06-16] MEDS: ALLOPURINOL 300 MG TAB PO SCH (08:39)
[2018-06-16] MEDS: LIDOCAINE 5% PATCH TD SCH (08:40)
[2018-06-16] MEDS: METOPROLOL 25 MG TAB PO SCH ×2 (08:40→21:17)
--- NOTE | 2018-06-16 11:36 | PN ---
Date/Time of Note Date/Time of Note DATE: 06/16/18 TIME: 11:29 Assessment/Plan VTE Prophylaxis [place] [facility] [place] risk: 9 SCD applied ([place] [facility] [place] Yes Pharmacological prophylaxis: NA/contraindicated Pharm contraindication: bleeding, renal impairment Lines/Catheters IV C[facility]ter Type (from [facility]): CORNELL CATH Urinary Cath still in place: Yes Reason Cath still needed: urinary retention Assessment/Plan Problems: (1) Non-STEMI (non-ST elevated myocardial infarction) Onset Date: ~ 06/06/2018 Status: Acute Comment: Stable. No intervention. Cardiology following peripherally. (2) Systolic CHF with reduced left ventricular function, NYHA class 3 Status: Chronic Comment: On lasix, digoxin. Stable. Cardiology following peripherally. (3) Paroxysmal atrial fibrillation Status: Chronic Comment: On digoxin, metoprolol. No venous anticoagulation due to high risk of bleeding and falls. (4) CAD (coronary artery disease) Status: Chronic Comment: Cont. ASA and clopidogrel Qualifiers: Coronary Disease-Associated Artery/Lesion type: [place] artery [place] vs. transplanted heart: [place] heart Associated angina: without angina Qualified Codes: I25.10 - Atherosclerotic heart disease of [place] coronary artery without angina pectoris (5) Hypertension Status: Chronic Comment: Controlled. Cont. metoprolol and lisinopril Qualifiers: Hypertension type: essential hypertension Qualified Codes: I10 - Essential (primary) hypertension (6) Hyperlipidemia Status: Chronic Comment: Cont. statin Qualifiers: Hyperlipidemia type: pure hypercholesterolemia Qualified Codes: E78.00 - Pure hypercholesterolemia, unspecified (7) Peripheral vascular disease Status: Chronic Comment: Cont. ASA and clopidogrel. (8) Cerebrovascular disease Status: Chronic Comment: Cont. ASA and clopidogrel (9) Hyperuricemia Status: Chronic Comment: Cont. allopurinol (10) Hyperkalemia Status: Acute Comment: Stable. Cont. HD per nephrology (11) End stage renal disease on dialysis Status: Chronic Comment: Stable. Cont. HD per nephrology (12) Fall with no significant injury Status: Acute Comment: Pain controlled. Initiate PT tomorrow. Qualifiers: Encounter type: initial encounter Qualified Codes: W19.XXXA - Unspecified fall, initial encounter (13) Prostatic hypertrophy Status: Chronic Comment: Monitor by urology. D/c morris when able to pass urine on own. (14) Hematuria Status: Acute Comment: Has resolved. Morris flush clamped. Urine clear. Qualifiers: Hematuria type: unspecified type Qualified Codes: R31.9 - Hematuria, unspecified (15) Leukocytosis Status: Acute Comment: Persistent despite normalization of lactate. Cont. vanco per pharmacy. Result Diagram: 06/16/18 0512 06/16/18 0512 Results 24hrs Laboratory Tests Test 06/15/18 14:00 06/16/18 05:12 Urine Color BROWN Urine Clarity CLOUDY A Urine pH 6.0 Urine Specific [place] 1.017 Urine Ketones NEGATIVE Urine Nitrite NEGATIVE Urine Bilirubin NEGATIVE Urine Urobilinogen 0.2 E.U./dL Urine Leukocyte Esterase 1+ Urine Microscopic RBC >200 Urine Microscopic WBC 5-10 Urine Squamous Epithelial Cells RARE Urine Bacteria MODERATE Urine Hemoglobin 3+ Urine Glucose NEGATIVE Urine Total Protein NEGATIVE White Blood Count 18.7 H Red Blood Count 3.19 L Hemoglobin 9.3 L Hematocrit 29.0 L Mean Corpuscular Volume 90.9 Mean Corpuscular Hemoglobin 29.2 Mean Corpuscular Hemoglobin Concent 32.1 Red Cell Distribution Width 14.0 Platelet Count 271 Mean Platelet Volume 10.2 Immature Granulocytes % 2.400 H Neutrophils % 83.9 H Lymphocytes % 3.6 L Monocytes % 6.8 Eosinophils % 2.8 Basophils % 0.5 Nucleated Red Blood Cells % 0.2 H Immature Granulocytes # 0.440 H Neutrophils # 15.7 H Lymphocytes # 0.7 L Monocytes # 1.3 H Eosinophils # 0.5 Basophils # 0.1 Nucleated Red Blood Cells # 0.0 Sodium Level 134 L Potassium Level 4.8 Chloride Level 96 L Carbon Dioxide Level 25 Anion Gap 13 Blood Urea Nitrogen 72 #H Creatinine 7.02 H Est Glomerular Filtrat Rate mL/min Glucose Level 100 Calcium Level 8.8 Subjective 24 Hr Interval Summary Subjective hx not possible: pt non-verbal (asleep but reports pt. doing better, eating well, urine clear. Needs to get up and move and get stronger. ) Exam/Review of Systems Vital Signs Vitals VS - Last 72 Hours, by Label Date Temp Pulse Resp B/P (MAP) Pulse Ox O2 O2 Flow FiO2 Time Delivery Rate 06/16/18 Nasal 3.0 08:58 Cannula 06/16/18 97.6 74 22 119/56 96 Nasal 08:17 (77) Cannula 06/16/18 74 08:00 06/16/18 98.0 75 20 98/47 (64) 100 Nasal 2.0 04:00 Cannula 06/16/18 80 04:00 06/16/18 2.0 28 03:15 06/16/18 98.1 78 20 99/49 (66) 94 Nasal 2.0 00:00 Cannula 06/16/18 80 00:00 06/15/18 2.0 28 23:00 06/15/18 Nasal 3.0 20:00 Cannula 06/15/18 79 20:00 06/15/18 98.6 76 20 111/51 97 Nasal 2.0 20:00 (71) Cannula 06/15/18 97.6 77 22 112/54 96 2.0 16:00 (73) 06/15/18 73 16:00 06/15/18 2.0 13:49 06/15/18 97.4 80 22 111/56 96 Nasal 2.0 12:14 (74) Cannula 06/15/18 83 12:00 06/15/18 77 08:00 06/15/18 Nasal 3.0 08:00 Cannula 06/15/18 97.6 78 22 163/72 96 Nasal 2.0 07:42 (102) Cannula 06/15/18 125 06:03 06/15/18 80 04:00 06/15/18 98.3 68 20 145/66 99 Nasal 04:00 (92) Cannula 06/15/18 2.0 01:20 06/15/18 73 00:00 06/14/18 2.0 23:58 06/14/18 98.0 64 20 140/62 98 Nasal 23:54 (88) Cannula 06/14/18 80 20:00 06/14/18 Nasal 3.0 20:00 Cannula 06/14/18 98.5 68 20 152/67 97 Nasal 19:48 (95) Cannula 06/14/18 71 16:07 06/14/18 98.2 62 20 148/69 92 Nasal 15:54 (95) Cannula 06/14/18 72 18 161/73 99 Nasal 3.0 15:50 (102) Cannula 06/14/18 72 14:56 06/14/18 70 14:41 06/14/18 79 14:26 06/14/18 71 14:11 06/14/18 70 14:03 06/14/18 67 13:56 06/14/18 66 13:48 06/14/18 67 13:41 06/14/18 73 13:26 06/14/18 66 13:11 06/14/18 67 12:56 06/14/18 65 12:41 06/14/18 68 12:26 06/14/18 67 12:11 06/14/18 68 12:08 06/14/18 65 11:54 06/14/18 66 16 135/57 99 Nasal 3.0 11:54 (83) Cannula 06/14/18 98.3 64 18 131/58 98 Nasal 11:50 (82) Cannula 06/14/18 75 08:18 06/14/18 98.2 75 18 156/70 99 Nasal 08:15 (98) Cannula 06/14/18 Nasal 3.0 08:00 Cannula 06/14/18 2.0 05:43 06/14/18 98.4 67 18 155/70 100 04:12 (98) 06/14/18 63 04:00 06/14/18 98.3 70 18 148/65 100 00:42 (92) 06/14/18 67 00:00 06/13/18 2.0 22:36 06/13/18 Nasal 2.0 21:32 Cannula 06/13/18 98.6 68 18 110/54 98 20:25 (72) 06/13/18 76 20:00 06/13/18 68 16:01 06/13/18 97.8 74 18 149/67 98 Nasal 15:24 (94) Cannula 06/13/18 2.0 12:55 06/13/18 66 12:01 06/13/18 98.2 67 18 115/58 99 Nasal 11:40 (77) Cannula Vital Signs Date Temp Pulse Resp B/P (MAP) Pulse Ox O2 O2 Flow FiO2 Time Delivery Rate 06/16/18 Nasal 3.0 08:58 Cannula 06/16/18 97.6 74 22 119/56 96 08:17 (77) 06/16/18 28 03:15 Intake and Output 06/15/18 06/15/18 06/16/18 1515:00 23:00 07:00 IntakeIntake Total 11127 ml 6160 ml 200 ml OutputOutput Total 23361 ml 5600 ml 100 ml BalanceBalance 490 ml 560 ml 100 ml Exam Constitutional: frail; No alert (asleep) Respiratory: clear to auscultation, normal air movement Cardiovascular: regular rate and rhythm, nl pulses; No edema, No murmurs/extra sounds, No rub Gastrointestinal: soft, nl liver, spleen, non-tender, bowel sounds; No mass, No rebound or guarding Musculoskeletal: nl extremities to inspection Extremities: normal pulses; No cyanosis, No clubbing, No edema Neurological: [employer] DES[employer] II-XII intact, nl mental status, nl speech, nl strength Medications Medications Current Medications Dextrose (D50w Syringe) ONCE PRN IV DECREASED GLUCOSE Last administered on 06/06/18at 08:18; Admin Dose 50 ML; Start 06/06/18 at 08:00 Acetaminophen (Tylenol Tab) 500 mg Q4H PRN PO MILD PAIN(1-3)OR ELEVATED TEMP Last administered on 06/09/18at 15:06; Admin Dose 500 MG; Start 06/06/18 at 11:00 Allopurinol (Zyloprim) 300 mg DAILY PO Last administered on 06/16/18 08:39; Admin Dose 300 MG; Start 06/07/18 at 09:00 Aspirin (Aspirin) 81 mg DAILY PO Last administered on 06/16/18 08:39; Admin Dose 81 MG; Start 06/06/18 at 11:00 Atorvastatin Calcium (Lipitor) 20 mg QHS PO Last administered on 06/15/18 20:50; Admin Dose 20 MG; Start 06/06/18 at 21:00 Calcium Carbonate (Oyster Shell Calcium) 0.5 gm BID PO Last administered on 06/16/18 08:38; Admin Dose 0.5 GM; Start 06/06/18 at 21:00 Clopidogrel Bisulfate (plaVIX) 75 mg DAILY PO Last administered on 06/16/18 08:39; Admin Dose 75 MG; Start 06/06/18 at 11:00 Isosorbide Mononitrate (Imdur) 120 mg DAILY PO Last administered on 06/16/18 08:38; Admin Dose 120 MG; Start 06/06/18 at 11:00 Metoprolol Tartrate (Lopressor) 25 mg BID PO Last administered on 06/16/18 08:40; Admin Dose 25 MG; Start 06/06/18 at 11:00 Primidone (Mysoline) 25 mg HS PO Last administered on 06/15/18 20:50; Admin Dose 25 MG; Start 06/06/18 at 21:00 Tramadol HCl (Ultram) 50 mg Q6H PRN PO PAIN Last administered on 06/12/18 17:33; Admin Dose 50 MG; Start 06/06/18 at 11:00 Vancomycin HCl (Vanco Iv Per Pharmacy) VANCOMYCIN PER PHARMACY PER PROTOCOL XX ; Start 06/06/18 at 13:30 IV Flush (NS 3 ml) 3 ml PER PROTOCOL IV ; Start 06/06/18 at 14:00 Lorazepam (Ativan) 0.5 mg Q8H PRN PO ANXIETY Last administered on 06/14/18 20:33; Admin Dose 0.5 MG; Start 06/06/18 at 14:00 Acetaminophen/ Hydrocodone Bitart ([place] (5/325)) 1 tab Q6H PRN PO PAIN LEVEL 4-6 Last administered on 06/15/18 20:53; Admin Dose 1 TAB; Start 06/06/18 at 14:00 Docusate Sodium (Colace) 100 mg Q12H PRN PO CONSTIPATION Last administered on 06/12/18 13:15; Admin Dose 100 MG; Start 06/06/18 at 14:00 Famotidine (Pepcid) 20 mg Q24H PO Last administered on 06/15/18 20:52; Admin Dose 20 MG; Start 06/06/18 at 21:00 Digoxin (Digoxin) 0.0625 mg DAILY@1300 PO Last administered on 06/15/18 13:55; Admin Dose 0.0625 MG; Start 06/07/18 at 13:00 Furosemide (Lasix) 40 mg DAILY PO Last administered on 06/16/18 08:38; Admin Dose 40 MG; Start 06/07/18 at 09:00 Celecoxib (Celebrex) 100 mg BID PO Last administered on 06/16/18 08:39; Admin Dose 100 MG; Start 06/06/18 at 14:00 Epoetin Calos (Epogen (Esrd)) 10,000 units MoWeFr@17 SC Last administered on 06/14/18 18:42; Admin Dose 10,000 UNITS; Start 06/07/18 at 17:00 Multivit/Ca Carb/ B Cmplx/FA/Prenat (Fany-Jose Luis) 1 tab DAILY PO Last administered on 06/16/18 08:37; Admin Dose 1 TAB; Start 06/08/18 at 09:00 Baclofen (Lioresal) 10 mg Q8H PRN PO Cramps Last administered on 06/08/18 22:34; Admin Dose 10 MG; Start 06/08/18 at 22:30 Morphine Sulfate (morphine) 0.5 mg Q4 PRN IV SEVERE PAIN LEVEL 7-10 Last administered on 06/14/18 07:24; Admin Dose 0.5 MG; Start 06/08/18 at 22:30 Heparin Sodium (Porcine) (Heparin (1000 Units/ml)) 2,800 unit PRN PRN CATHETER DIALYSIS Last administered on 06/12/18 15:23; Admin Dose 2,800 UNIT; Start 06/09/18 at 16:30 Lidocaine (Lidoderm) 1 patch DAILY TD Last administered on 06/16/18 08:40; Admin Dose 1 PATCH; Start 06/11/18 at 11:00 Metoclopramide HCl (Reglan) 5 mg AC MEALS PO Last administered on 06/16/18 06:49; Admin Dose 5 MG; Start 06/11/18 at 11:30 Ondansetron HCl (Zofran Inj) 4 mg Q6H PRN IV NAUSEA AND/OR VOMITING Last administered on 06/12/18 15:15; Admin Dose 4 MG; Start 06/12/18 at 15:30 Lisinopril (Zestril) 2.5 mg QHS PO Last administered on 06/14/18 20:35; Admin Dose 2.5 MG; Start 06/13/18 at 21:00 SAMUEL ABRAMS MD Jun 16, 2018 11:36
--- NOTE | 2018-06-16 12:04 | CONS ---
Date/Time of Note Date/Time of Note DATE: 06/16/18 TIME: 12:00 Consult Date/Type/Reason Admit Date/Time Jun 06, 2018 at 08:52 Initial Consult Date 06/08/18 Type of Consultation: Urology Reason for Consultation Hematuria Requesting Provider: RUTH VAZQUEZ MD Subjective The patient is comfortable and denies having any pain. Objective Vital Signs Date Temp Pulse Resp B/P (MAP) Pulse Ox O2 O2 Flow FiO2 Time Delivery Rate 06/16/18 Nasal 3.0 08:58 Cannula 06/16/18 97.6 74 22 119/56 96 08:17 (77) 06/16/18 28 03:15 Intake and Output 06/15/18 06/15/18 06/16/18 1515:00 23:00 07:00 IntakeIntake Total 68650 ml 6160 ml 200 ml OutputOutput Total 57414 ml 5600 ml 100 ml BalanceBalance 490 ml 560 ml 100 ml Exam The Llamas catheter is draining clear with the bladder irrigation. I had the irrigation stopped yesterday with the hope that it remains clear, however the nurse called me later and stated that the urine is now bloody so I had her restart the irrigation. Results/Medications Result Diagram: 06/16/18 0512 06/16/18 0512 Results 24 hrs Laboratory Tests Test 06/15/18 14:00 06/16/18 05:12 Urine Color BROWN Urine Clarity CLOUDY A Urine pH 6.0 Urine Specific [place] 1.017 Urine Ketones NEGATIVE Urine Nitrite NEGATIVE Urine Bilirubin NEGATIVE Urine Urobilinogen 0.2 E.U./dL Urine Leukocyte Esterase 1+ Urine Microscopic RBC >200 Urine Microscopic WBC 5-10 Urine Squamous Epithelial Cells RARE Urine Bacteria MODERATE Urine Hemoglobin 3+ Urine Glucose NEGATIVE Urine Total Protein NEGATIVE White Blood Count 18.7 H Red Blood Count 3.19 L Hemoglobin 9.3 L Hematocrit 29.0 L Mean Corpuscular Volume 90.9 Mean Corpuscular Hemoglobin 29.2 Mean Corpuscular Hemoglobin Concent 32.1 Red Cell Distribution Width 14.0 Platelet Count 271 Mean Platelet Volume 10.2 Immature Granulocytes % 2.400 H Neutrophils % 83.9 H Lymphocytes % 3.6 L Monocytes % 6.8 Eosinophils % 2.8 Basophils % 0.5 Nucleated Red Blood Cells % 0.2 H Immature Granulocytes # 0.440 H Neutrophils # 15.7 H Lymphocytes # 0.7 L Monocytes # 1.3 H Eosinophils # 0.5 Basophils # 0.1 Nucleated Red Blood Cells # 0.0 Sodium Level 134 L Potassium Level 4.8 Chloride Level 96 L Carbon Dioxide Level 25 Anion Gap 13 Blood Urea Nitrogen 72 #H Creatinine 7.02 H Est Glomerular Filtrat Rate mL/min Glucose Level 100 Calcium Level 8.8 Medications Current Medications Dextrose (D50w Syringe) ONCE PRN IV DECREASED GLUCOSE Last administered on 06/06/18 08:18; Admin Dose 50 ML; Start 06/06/18 at 08:00 Acetaminophen (Tylenol Tab) 500 mg Q4H PRN PO MILD PAIN(1-3)OR ELEVATED TEMP Last administered on 06/09/18 15:06; Admin Dose 500 MG; Start 06/06/18 at 11:00 Allopurinol (Zyloprim) 300 mg DAILY PO Last administered on 06/16/18 08:39; Admin Dose 300 MG; Start 06/07/18 at 09:00 Aspirin (Aspirin) 81 mg DAILY PO Last administered on 06/16/18 08:39; Admin Dose 81 MG; Start 06/06/18 at 11:00 Atorvastatin Calcium (Lipitor) 20 mg QHS PO Last administered on 06/15/18 20:50; Admin Dose 20 MG; Start 06/06/18 at 21:00 Calcium Carbonate (Oyster Shell Calcium) 0.5 gm BID PO Last administered on 06/16/18 08:38; Admin Dose 0.5 GM; Start 06/06/18 at 21:00 Clopidogrel Bisulfate (plaVIX) 75 mg DAILY PO Last administered on 06/16/18 08:39; Admin Dose 75 MG; Start 06/06/18 at 11:00 Isosorbide Mononitrate (Imdur) 120 mg DAILY PO Last administered on 06/16/18 08:38; Admin Dose 120 MG; Start 06/06/18 at 11:00 Metoprolol Tartrate (Lopressor) 25 mg BID PO Last administered on 06/16/18 08:40; Admin Dose 25 MG; Start 06/06/18 at 11:00 Primidone (Mysoline) 25 mg HS PO Last administered on 06/15/18 20:50; Admin Dose 25 MG; Start 06/06/18 at 21:00 Tramadol HCl (Ultram) 50 mg Q6H PRN PO PAIN Last administered on 06/12/18 17:33; Admin Dose 50 MG; Start 06/06/18 at 11:00 Vancomycin HCl (Vanco Iv Per Pharmacy) VANCOMYCIN PER PHARMACY PER PROTOCOL XX ; Start 06/06/18 at 13:30 IV Flush (NS 3 ml) 3 ml PER PROTOCOL IV ; Start 06/06/18 at 14:00 Lorazepam (Ativan) 0.5 mg Q8H PRN PO ANXIETY Last administered on 06/14/18 20:33; Admin Dose 0.5 MG; Start 06/06/18 at 14:00 Acetaminophen/ Hydrocodone Bitart ([place] (5/325)) 1 tab Q6H PRN PO PAIN LEVEL 4-6 Last administered on 06/15/18 20:53; Admin Dose 1 TAB; Start 06/06/18 at 14:00 Docusate Sodium (Colace) 100 mg Q12H PRN PO CONSTIPATION Last administered on 13:15; Admin Dose 100 MG; Start 06/06/18 at 14:00 Famotidine (Pepcid) 20 mg Q24H PO Last administered on 06/15/18 20:52; Admin Dose 20 MG; Start 06/06/18 at 21:00 Digoxin (Digoxin) 0.0625 mg DAILY@1300 PO Last administered on 06/15/18 13:55; Admin Dose 0.0625 MG; Start 06/07/18 at 13:00 Furosemide (Lasix) 40 mg DAILY PO Last administered on 06/16/18 08:38; Admin Dose 40 MG; Start 06/07/18 at 09:00 Celecoxib (Celebrex) 100 mg BID PO Last administered on 06/16/18 08:39; Admin Dose 100 MG; Start 06/06/18 at 14:00 Epoetin Calos (Epogen (Esrd)) 10,000 units MoWeFr@17 SC Last administered on 06/14/18 18:42; Admin Dose 10,000 UNITS; Start 06/07/18 at 17:00 Multivit/Ca Carb/ B Cmplx/FA/Prenat (Fany-Jose Luis) 1 tab DAILY PO Last administered on 06/16/18 08:37; Admin Dose 1 TAB; Start 06/08/18 at 09:00 Baclofen (Lioresal) 10 mg Q8H PRN PO Cramps Last administered on 06/08/18 22: 34; Admin Dose 10 MG; Start 06/08/18 at 22:30 Morphine Sulfate (morphine) 0.5 mg Q4 PRN IV SEVERE PAIN LEVEL 7-10 Last administered on 06/14/18 07:24; Admin Dose 0.5 MG; Start 06/08/18 at 22:30 Heparin Sodium (Porcine) (Heparin (1000 Units/ml)) 2,800 unit PRN PRN CATHETER DIALYSIS Last administered on 06/12/18 15:23; Admin Dose 2,800 UNIT; Start 06/09/18 at 16:30 Lidocaine (Lidoderm) 1 patch DAILY TD Last administered on 06/16/18 08:40; Admin Dose 1 PATCH; Start 06/11/18 at 11:00 Metoclopramide HCl (Reglan) 5 mg AC MEALS PO Last administered on 06/16/18 11:37; Admin Dose 5 MG; Start 06/11/18 at 11:30 Ondansetron HCl (Zofran Inj) 4 mg Q6H PRN IV NAUSEA AND/OR VOMITING Last administered on 06/12/18 15:15; Admin Dose 4 MG; Start 06/12/18 at 15:30 Lisinopril (Zestril) 2.5 mg QHS PO Last administered on 06/14/18 20:35; Admin Dose 2.5 MG; Start 06/13/18 at 21:00 Assessment/Plan Chief Complaint/Hosp Course 88-year-old male had gone to the bathroom both for stool and urination. He was trying to get off of the toilet and slid and actually got himself trapped between the toilet and the bathtub. He did not have head trauma and he did not have loss of consciousness. He did not have chest pain or palpitations. He was stuck in that position for minimum of 2 hours before finally requesting external help. He was brought to the emergency room and admitted. He is on hemodialysis and went to the emergency room try to get a urine specimen from him he was not able to urinate and they did a straight cath on him and since then he has had gross hematuria. Therefore a urological consultation was requested. The patient has been on hemodialysis for about 5 years. He still makes urine and urinates once at night and about 4 times a day. He has undergone a transurethral resection of the prostate when he was 59 years old. Because of the gross hematuria a 24 [place] Llamas catheter, three-way with a 30 cc balloon was inserted on 06/08/2018 and the bladder was irrigated thoroughly and the blood clots were removed. Patient was started on continuous bladder irrigation. Once the return from the irrigation was clear I did stop the irrigation. However the nurse called me back yesterday afternoon stating that the urine is now bloody so I had her restart the irrigation. The fact that this patient is on hemodialysis he does not make much urine to dilute any bleeding coming from his bladder. And he does have heart problems and is on Plavix and aspirin. If I was to scope him he will need these to be stopped which would increase his heart risks. I prefer to be conservative and avoid any surgical intervention unless we have no choice. For now I will continue the bladder irrigation and will check him regularly with the hope to stop the irrigation and remove the Llamas. HAI URIBE MD Jun 16, 2018 12:04
--- NOTE | 2018-06-16 12:05 | CONS ---
Date/Time of Note Date/Time of Note DATE: 06/16/18 TIME: 12:03 Assessment/Plan Assessment/Plan Assessment/Plan 1. CKD will plan on HD tomm 2. Mild vol overloaded 3. Hematuria, urine clearing, urol note rev 4. Cognition status quo 5. Elev wbc, urine cult is pending Result Diagram: 06/16/18 0512 06/16/18 0512 Results 24hrs Laboratory Tests Test 06/15/18 14:00 06/16/18 05:12 Urine Color BROWN Urine Clarity CLOUDY A Urine pH 6.0 Urine Specific [place] 1.017 Urine Ketones NEGATIVE Urine Nitrite NEGATIVE Urine Bilirubin NEGATIVE Urine Urobilinogen 0.2 E.U./dL Urine Leukocyte Esterase 1+ Urine Microscopic RBC >200 Urine Microscopic WBC 5-10 Urine Squamous Epithelial Cells RARE Urine Bacteria MODERATE Urine Hemoglobin 3+ Urine Glucose NEGATIVE Urine Total Protein NEGATIVE White Blood Count 18.7 H Red Blood Count 3.19 L Hemoglobin 9.3 L Hematocrit 29.0 L Mean Corpuscular Volume 90.9 Mean Corpuscular Hemoglobin 29.2 Mean Corpuscular Hemoglobin Concent 32.1 Red Cell Distribution Width 14.0 Platelet Count 271 Mean Platelet Volume 10.2 Immature Granulocytes % 2.400 H Neutrophils % 83.9 H Lymphocytes % 3.6 L Monocytes % 6.8 Eosinophils % 2.8 Basophils % 0.5 Nucleated Red Blood Cells % 0.2 H Immature Granulocytes # 0.440 H Neutrophils # 15.7 H Lymphocytes # 0.7 L Monocytes # 1.3 H Eosinophils # 0.5 Basophils # 0.1 Nucleated Red Blood Cells # 0.0 Sodium Level 134 L Potassium Level 4.8 Chloride Level 96 L Carbon Dioxide Level 25 Anion Gap 13 Blood Urea Nitrogen 72 #H Creatinine 7.02 H Est Glomerular Filtrat Rate mL/min Glucose Level 100 Calcium Level 8.8 Consultation Date/Type/Reason Admit Date/Time Jun 06, 2018 at 08:52 Initial Consult Date Requesting Provider: RUTH VAZQUEZ MD 24 HR Interval Summary Constitutional: other (Somnolent but can arrouse) Exam/Review of Systems Vital Signs Vitals Vital Signs Date Temp Pulse Resp B/P (MAP) Pulse Ox O2 O2 Flow FiO2 Time Delivery Rate 06/16/18 97.6 77 20 122/50 96 Nasal 12:02 (74) Cannula 06/16/18 3.0 08:58 06/16/18 28 03:15 Intake and Output 06/15/18 06/15/18 06/16/18 1515:00 23:00 07:00 IntakeIntake Total 02344 ml 6160 ml 200 ml OutputOutput Total 77388 ml 5600 ml 100 ml BalanceBalance 490 ml 560 ml 100 ml Exam Neck: No jvd Respiratory: diminished breath sounds Cardiovascular: regular rate and rhythm Extremities: edema (sacral 1+) Medications Medications Current Medications Dextrose (D50w Syringe) ONCE PRN IV DECREASED GLUCOSE Last administered on 06/06/18 08:18; Admin Dose 50 ML; Start 06/06/18 at 08:00 Acetaminophen (Tylenol Tab) 500 mg Q4H PRN PO MILD PAIN(1-3)OR ELEVATED TEMP L ast administered on 06/09/18at 15:06; Admin Dose 500 MG; Start 06/06/18 at 11:00 Allopurinol (Zyloprim) 300 mg DAILY PO Last administered on 06/16/18 08:39; Admin Dose 300 MG; Start 06/07/18 at 09:00 Aspirin (Aspirin) 81 mg DAILY PO Last administered on 06/16/18 08:39; Admin Dose 81 MG; Start 06/06/18 at 11:00 Atorvastatin Calcium (Lipitor) 20 mg QHS PO Last administered on 06/15/18 20:50; Admin Dose 20 MG; Start 06/06/18 at 21:00 Calcium Carbonate (Oyster Shell Calcium) 0.5 gm BID PO Last administered on 06/16/18 08:38; Admin Dose 0.5 GM; Start 06/06/18 at 21:00 Clopidogrel Bisulfate (plaVIX) 75 mg DAILY PO Last administered on 06/16/18 08:39; Admin Dose 75 MG; Start 06/06/18 at 11:00 Isosorbide Mononitrate (Imdur) 120 mg DAILY PO Last administered on 06/16/18 08:38; Admin Dose 120 MG; Start 06/06/18 at 11:00 Metoprolol Tartrate (Lopressor) 25 mg BID PO Last administered on 06/16/18 08:40; Admin Dose 25 MG; Start 06/06/18 at 11:00 Primidone (Mysoline) 25 mg HS PO Last administered on 06/15/18 20:50; Admin Dose 25 MG; Start 06/06/18 at 21:00 Tramadol HCl (Ultram) 50 mg Q6H PRN PO PAIN Last administered on 06/12/18 17:33; Admin Dose 50 MG; Start 06/06/18 at 11:00 Vancomycin HCl (Vanco Iv Per Pharmacy) VANCOMYCIN PER PHARMACY PER PROTOCOL XX ; Start 06/06/18 at 13:30 IV Flush (NS 3 ml) 3 ml PER PROTOCOL IV ; Start 06/06/18 at 14:00 Lorazepam (Ativan) 0.5 mg Q8H PRN PO ANXIETY Last administered on 06/14/18 20:33; Admin Dose 0.5 MG; Start 06/06/18 at 14:00 Acetaminophen/ Hydrocodone Bitart ([place] (5/325)) 1 tab Q6H PRN PO PAIN LEVEL 4-6 Last administered on 06/15/18 20:53; Admin Dose 1 TAB; Start 06/06/18 at 14:00 Docusate Sodium (Colace) 100 mg Q12H PRN PO CONSTIPATION Last administered on 06/12/18 13:15; Admin Dose 100 MG; Start 06/06/18 at 14:00 Famotidine (Pepcid) 20 mg Q24H PO Last administered on 06/15/18 20:52; Admin Dose 20 MG; Start 06/06/18 at 21:00 Digoxin (Digoxin) 0.0625 mg DAILY@1300 PO Last administered on 06/15/18 13:55; Admin Dose 0.0625 MG; Start 06/07/18 at 13:00 Furosemide (Lasix) 40 mg DAILY PO Last administered on 06/16/18 08:38; Admin Dose 40 MG; Start 06/07/18 at 09:00 Celecoxib (Celebrex) 100 mg BID PO Last administered on 06/16/18 08:39; Admin Dose 100 MG; Start 06/06/18 at 14:00 Epoetin Calos (Epogen (Esrd)) 10,000 units MoWeFr@17 SC Last administered on 06/14/18 18:42; Admin Dose 10,000 UNITS; Start 06/07/18 at 17:00 Multivit/Ca Carb/ B Cmplx/FA/Prenat (Fany-Jose Luis) 1 tab DAILY PO Last administered on 06/16/18 08:37; Admin Dose 1 TAB; Start 06/08/18 at 09:00 Baclofen (Lioresal) 10 mg Q8H PRN PO Cramps Last administered on 06/08/18 22:34; Admin Dose 10 MG; Start 06/08/18 at 22:30 Morphine Sulfate (morphine) 0.5 mg Q4 PRN IV SEVERE PAIN LEVEL 7-10 Last administered on 06/14/18 07:24; Admin Dose 0.5 MG; Start 06/08/18 at 22:30 Heparin Sodium (Porcine) (Heparin (1000 Units/ml)) 2,800 unit PRN PRN CATHETER DIALYSIS Last administered on 06/12/18 15:23; Admin Dose 2,800 UNIT; Start 05/13 at 16:30 Lidocaine (Lidoderm) 1 patch DAILY TD Last administered on 06/16/18 08:40; Admin Dose 1 PATCH; Start 06/11/18 at 11:00 Metoclopramide HCl (Reglan) 5 mg AC MEALS PO Last administered on 06/16/18 11:37; Admin Dose 5 MG; Start 06/11/18 at 11:30 Ondansetron HCl (Zofran Inj) 4 mg Q6H PRN IV NAUSEA AND/OR VOMITING Last administered on 06/12/18 15:15; Admin Dose 4 MG; Start 06/12/18 at 15:30 Lisinopril (Zestril) 2.5 mg QHS PO Last administered on 06/14/18 20:35; Admin Dose 2.5 MG; Start 06/13/18 at 21:00 JANETH SHEPARD MD Jun 16, 2018 12:05
[2018-06-16] MEDS: DIGOXIN 0.125 MG TAB PO SCH (13:15)
[2018-06-16] MEDS: HYDROCODONE/APAP (5/325) TAB PO PRN (14:19)
[2018-06-16] MEDS: PRIMIDONE 50 MG TAB PO SCH (21:13)
[2018-06-16] MEDS: ATORVASTATIN 20 MG TAB PO SCH (21:14)
[2018-06-16] MEDS: FAMOTIDINE 20 MG TAB PO SCH (21:14)
[2018-06-16] MEDS: LISINOPRIL 5 MG TAB PO SCH (21:16)
[2018-06-17] VITALS (26 sets, daily range): BP systolic 107–159; BP diastolic 49–65; PULSE 66–81; RESP 16–20
[2018-06-17] MEDS: DOCUSATE SODIUM 100 MG CAP PO PRN ×2 (07:05→21:18)
[2018-06-17] MEDS: METOCLOPRAMIDE 5 MG TAB PO SCH ×3 (07:05→17:21)
--- NOTE | 2018-06-17 08:05 | CONS ---
Date/Time of Note Date/Time of Note DATE: 06/17/18 TIME: 07:55 Assessment/Plan Assessment/Plan Assessment/Plan 1. End-stage renal disease on maintenance hemodialysis. He is due for hemodialysis today. 2. Altered mental status with some episodes of confusion. 3. Leukocytosis , etiology not clear , afebrile . 4. Thrombosed left upper arm AV fistula. He now has a right femoral Ministerio catheter for dialysis. 5. Anemia of chronic kidney disease 6. Urinary retention with Llamas catheter in place. Result Diagram: 06/17/18 0459 06/17/18 0459 Results 24hrs Laboratory Tests Test 06/17/18 04:59 White Blood Count 21.7 H Red Blood Count 3.28 L Hemoglobin 9.7 L Hematocrit 29.8 L Mean Corpuscular Volume 90.9 Mean Corpuscular Hemoglobin 29.6 Mean Corpuscular Hemoglobin Concent 32.6 Red Cell Distribution Width 13.9 Platelet Count 266 Mean Platelet Volume 10.0 Immature Granulocytes % 2.600 H Neutrophils % 82.7 H Lymphocytes % 3.0 L Monocytes % 8.3 Eosinophils % 2.9 Basophils % 0.5 Nucleated Red Blood Cells % 0.1 H Immature Granulocytes # 0.560 H Neutrophils # 18.0 H Lymphocytes # 0.6 L Monocytes # 1.8 H Eosinophils # 0.6 H Basophils # 0.1 Nucleated Red Blood Cells # 0.0 Sodium Level 131 L Potassium Level 5.1 Chloride Level 91 L Carbon Dioxide Level 24 Anion Gap 16 H Blood Urea Nitrogen 101 H Creatinine 8.24 H Est Glomerular Filtrat Rate mL/min Glucose Level 97 Calcium Level 9.0 Phosphorus Level 4.5 Magnesium Level 2.1 Consultation Date/Type/Reason Admit Date/Time Jun 06, 2018 at 08:52 Initial Consult Date 06/08/18 Requesting Provider: RUTH VAZQUEZ MD 24 HR Interval Summary Free Text/Dictation I am seeing him in nephrologic follow-up. He is awake and does recognize me. He does seem confused about his vascular access and the fact that he has a new right femoral Ministerio catheter for hemodialysis. He is scheduled for a hemodialysis treatment today. Constitutional: improved Exam/Review of Systems Vital Signs Vitals Vital Signs Date Temp Pulse Resp B/P (MAP) Pulse Ox O2 O2 Flow FiO2 Time Delivery Rate 06/17/18 98.2 66 16 135/65 100 Nasal 07:39 (88) Cannula 06/17/18 2.0 04:12 06/16/18 28 13:46 Intake and Output 06/16/18 06/16/18 06/17/18 1515:00 23:00 07:00 IntakeIntake Total 700 ml 250 ml OutputOutput Total 1000 ml 900 ml BalanceBalance -300 ml -650 ml Exam Left upper arm AV fistula has no bruit or thrill. He has a right femoral Ministerio catheter for hemodialysis. Constitutional: alert, frail Psych: confusion Respiratory: congested cough Cardiovascular: regular rate and rhythm Musculoskeletal: nl extremities to inspection Medications Medications Current Medications Dextrose (D50w Syringe) ONCE PRN IV DECREASED GLUCOSE Last administered on 06/06/18at 08:18; Admin Dose 50 ML; Start 06/06/18 at 08:00 Acetaminophen (Tylenol Tab) 500 mg Q4H PRN PO MILD PAIN(1-3)OR ELEVATED TEMP Last administered on 06/09/18at 15:06; Admin Dose 500 MG; Start 06/06/18 at 11:00 Allopurinol (Zyloprim) 300 mg DAILY PO Last administered on 06/16/18 08:39; Admin Dose 300 MG; Start 06/07/18 at 09:00 Aspirin (Aspirin) 81 mg DAILY PO Last administered on 06/16/18 08:39; Admin Dose 81 MG; Start 06/06/18 at 11:00 Atorvastatin Calcium (Lipitor) 20 mg QHS PO Last administered on 06/16/18 21:14; Admin Dose 20 MG; Start 06/06/18 at 21:00 Calcium Carbonate (Oyster Shell Calcium) 0.5 gm BID PO Last administered on 06/16/18 21:13; Admin Dose 0.5 GM; Start 06/06/18 at 21:00 Clopidogrel Bisulfate (plaVIX) 75 mg DAILY PO Last administered on 06/16/18 08:39; Admin Dose 75 MG; Start 06/06/18 at 11:00 Isosorbide Mononitrate (Imdur) 120 mg DAILY PO Last administered on 06/16/18 08:38; Admin Dose 120 MG; Start 06/06/18 at 11:00 Metoprolol Tartrate (Lopressor) 25 mg BID PO Last administered on 06/16/18 21:17; Admin Dose 25 MG; Start 06/06/18 at 11:00 Primidone (Mysoline) 25 mg HS PO Last administered on 06/16/18 21:13; Admin Dose 25 MG; Start 06/06/18 at 21:00 Tramadol HCl (Ultram) 50 mg Q6H PRN PO PAIN Last administered on 06/12/18 17:33; Admin Dose 50 MG; Start 06/06/18 at 11:00 IV Flush (NS 3 ml) 3 ml PER PROTOCOL IV ; Start 06/06/18 at 14:00 Lorazepam (Ativan) 0.5 mg Q8H PRN PO ANXIETY Last administered on 06/14/18 20:33; Admin Dose 0.5 MG; Start 06/06/18 at 14:00 Acetaminophen/ Hydrocodone Bitart ([place] (5/325)) 1 tab Q6H PRN PO PAIN LEVEL 4-6 Last administered on 06/16/18 14:19; Admin Dose 1 TAB; Start 06/06/18 at 14:00 Docusate Sodium (Colace) 100 mg Q12H PRN PO CONSTIPATION Last administered on 06/17/18 07:05; Admin Dose 100 MG; Start 06/06/18 at 14:00 Famotidine (Pepcid) 20 mg Q24H PO Last administered on 06/16/18 21:14; Admin Dose 20 MG; Start 06/06/18 at 21:00 Digoxin (Digoxin) 0.0625 mg DAILY@1300 PO Last administered on 06/16/18 13:15; Admin Dose 0.0625 MG; Start 06/07/18 at 13:00 Furosemide (Lasix) 40 mg DAILY PO Last administered on 06/16/18 08:38; Admin Dose 40 MG; Start 06/07/18 at 09:00 Celecoxib (Celebrex) 100 mg BID PO Last administered on 06/16/18 21:13; Admin Dose 100 MG; Start 06/06/18 at 14:00 Epoetin Calos (Epogen (Esrd)) 10,000 units MoWeFr@17 SC Last administered on 06/14/18 18:42; Admin Dose 10,000 UNITS; Start 06/07/18 at 17:00 Multivit/Ca Carb/ B Cmplx/FA/Prenat (Fany-Jose Luis) 1 tab DAILY PO Last administered on 06/16/18 08:37; Admin Dose 1 TAB; Start 06/08/18 at 09:00 Baclofen (Lioresal) 10 mg Q8H PRN PO Cramps Last administered on 06/08/18 22:34; Admin Dose 10 MG; Start 06/08/18 at 22:30 Morphine Sulfate (morphine) 0.5 mg Q4 PRN IV SEVERE PAIN LEVEL 7-10 Last administered on 06/14/18 07:24; Admin Dose 0.5 MG; Start 06/08/18 at 22:30 Heparin Sodium (Porcine) (Heparin (1000 Units/ml)) 2,800 unit PRN PRN CATHETER DIALYSIS Last administered on 06/12/18 15:23; Admin Dose 2,800 UNIT; Start 06/09/18 at 16:30 Lidocaine (Lidoderm) 1 patch DAILY TD Last administered on 06/16/18 08:40; Admin Dose 1 PATCH; Start 06/11/18 at 11:00 Metoclopramide HCl (Reglan) 5 mg AC MEALS PO Last administered on 06/17/18 07:05; Admin Dose 5 MG; Start 06/11/18 at 11:30 Ondansetron HCl (Zofran Inj) 4 mg Q6H PRN IV NAUSEA AND/OR VOMITING Last administered on 06/12/18 15:15; Admin Dose 4 MG; Start 06/12/18 at 15:30 Lisinopril (Zestril) 2.5 mg QHS PO Last administered on 06/16/18 21:16; Admin Dose 2.5 MG; Start 06/13/18 at 21:00 DEMARCUS CHING MD Jun 17, 2018 08:05
[2018-06-17] MEDS: ASPIRIN 81 MG TAB PO SCH (08:41)
[2018-06-17] MEDS: LIDOCAINE 5% PATCH TD SCH (08:41)
[2018-06-17] MEDS: CALCIUM CARBONATE 1.25 GM TAB PO SCH ×2 (08:41→21:13)
[2018-06-17] MEDS: MULTIVIT/CA CARB/B CMPLX/FA TAB PO SCH (08:41)
[2018-06-17] MEDS: CLOPIDOGREL 75 MG TAB PO SCH (08:41)
[2018-06-17] MEDS: ALLOPURINOL 300 MG TAB PO SCH (08:42)
[2018-06-17] MEDS: CELECOXIB 100 MG CAP PO SCH ×2 (08:42→21:12)
[2018-06-17] MEDS: METOPROLOL 25 MG TAB PO SCH ×2 (09:00→21:14)
[2018-06-17] MEDS: ISOSORBIDE MONONITRATE(SR)60 MG TAB PO SCH (09:00)
[2018-06-17] MEDS: FUROSEMIDE 40 MG TAB PO SCH (12:19)
--- NOTE | 2018-06-17 12:42 | PN ---
Date/Time of Note Date/Time of Note DATE: 06/17/18 TIME: 12:38 Assessment/Plan VTE Prophylaxis Risk score (from Ns)>0 risk: 9 SCD applied (from Ns): Yes Pharmacological prophylaxis: NA/contraindicated Pharm contraindication: other Lines/Catheters IV Catheter Type (from [facility]): leslee cath Urinary Cath still in place: Yes Reason Cath still needed: other (indicate) (hematuria) Assessment/Plan Result Diagram: 06/17/1845806/17/18458 Results 24hrs Laboratory Tests Test 06/17/18 04:59 White Blood Count 21.7 H Red Blood Count 3.28 L Hemoglobin 9.7 L Hematocrit 29.8 L Mean Corpuscular Volume 90.9 Mean Corpuscular Hemoglobin 29.6 Mean Corpuscular Hemoglobin Concent 32.6 Red Cell Distribution Width 13.9 Platelet Count 266 Mean Platelet Volume 10.0 Immature Granulocytes % 2.600 H Neutrophils % 82.7 H Lymphocytes % 3.0 L Monocytes % 8.3 Eosinophils % 2.9 Basophils % 0.5 Nucleated Red Blood Cells % 0.1 H Immature Granulocytes # 0.560 H Neutrophils # 18.0 H Lymphocytes # 0.6 L Monocytes # 1.8 H Eosinophils # 0.6 H Basophils # 0.1 Nucleated Red Blood Cells # 0.0 Sodium Level 131 L Potassium Level 5.1 Chloride Level 91 L Carbon Dioxide Level 24 Anion Gap 16 H Blood Urea Nitrogen 101 H Creatinine 8.24 H Est Glomerular Filtrat Rate mL/min Glucose Level 97 Calcium Level 9.0 Phosphorus Level 4.5 Magnesium Level 2.1 Subjective 24 Hr Interval Summary Free Text/Dictation his vs are ok, for hd today remains somewhat confused. getting weak, could not get up w p.t. today on puree, tolerates ok, some cough, doesn't seem related last xray still w fluid overload hematuria, fluctuates. spoke w dr dunaway who would prefer to avoid cysto un lesss no choice. 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, using rt femoral leslee no rales heard, hr ok, no edema Constitutional: disoriented Genitourinary: hematuria (weakness) Exam/Review of Systems Vital Signs Vitals Vital Signs Date Temp Pulse Resp B/P (MAP) Pulse Ox O2 O2 Flow FiO2 Time Delivery Rate 06/17/18 98.0 80 19 134/56 97 Nasal 11:45 (82) Cannula 06/17/18 3.0 07:57 06/16/18 28 13:46 Intake and Output 06/16/18 06/16/18 06/17/18 1414:59 22:59 06:59 IntakeIntake Total 700 ml 250 ml OutputOutput Total 1000 ml 900 ml BalanceBalance -300 ml -650 ml Medications Medications Current Medications Dextrose (D50w Syringe) ONCE PRN IV DECREASED GLUCOSE Last administered on 06/06/18 08:18; Admin Dose 50 ML; Start 06/06/18 at 08:00 Acetaminophen (Tylenol Tab) 500 mg Q4H PRN PO MILD PAIN(1-3)OR ELEVATED TEMP Last administered on 06/09/18 15:06; Admin Dose 500 MG; Start 06/06/18 at 11:00 Allopurinol (Zyloprim) 300 mg DAILY PO Last administered on 06/17/18 08:42; Admin Dose 300 MG; Start 06/07/18 at 09:00 Aspirin (Aspirin) 81 mg DAILY PO Last administered on 06/17/18 08:41; Admin Dose 81 MG; Start 06/06/18 at 11:00 Atorvastatin Calcium (Lipitor) 20 mg QHS PO Last administered on 06/16/18 21:14; Admin Dose 20 MG; Start 06/06/18 at 21:00 Calcium Carbonate (Oyster Shell Calcium) 0.5 gm BID PO Last administered on 06/17/18 08:41; Admin Dose 0.5 GM; Start 06/06/18 at 21:00 Clopidogrel Bisulfate (plaVIX) 75 mg DAILY PO Last administered on 06/17/18 08:41; Admin Dose 75 MG; Start 06/06/18 at 11:00 Isosorbide Mononitrate (Imdur) 120 mg DAILY PO Last administered on 06/16/18 08:38; Admin Dose 120 MG; Start 06/06/18 at 11:00 Metoprolol Tartrate (Lopressor) 25 mg BID PO Last administered on 06/16/18 21:17; Admin Dose 25 MG; Start 06/06/18 at 11:00 Primidone (Mysoline) 25 mg HS PO Last administered on 06/16/18 21:13; Admin Dose 25 MG; Start 06/06/18 at 21:00 Tramadol HCl (Ultram) 50 mg Q6H PRN PO PAIN Last administered on 06/12/18 17:33; Admin Dose 50 MG; Start 06/06/18 at 11:00 IV Flush (NS 3 ml) 3 ml PER PROTOCOL IV ; Start 06/06/18 at 14:00 Lorazepam (Ativan) 0.5 mg Q8H PRN PO ANXIETY Last administered on 06/14/18 20:33; Admin Dose 0.5 MG; Start 06/06/18 at 14:00 Acetaminophen/ Hydrocodone Bitart ([place] (5/325)) 1 tab Q6H PRN PO PAIN LEVEL 4-6 Last administered on 06/16/18 14:19; Admin Dose 1 TAB; Start 06/06/18 at 14:00 Docusate Sodium (Colace) 100 mg Q12H PRN PO CONSTIPATION Last administered on 06/17/18 07:05; Admin Dose 100 MG; Start 06/06/18 at 14:00 Famotidine (Pepcid) 20 mg Q24H PO Last administered on 06/16/18 21:14; Admin Dose 20 MG; Start 06/06/18 at 21:00 Digoxin (Digoxin) 0.0625 mg DAILY@1300 PO Last administered on 06/16/18 13:15; Admin Dose 0.0625 MG; Start 06/07/18 at 13:00 Furosemide (Lasix) 40 mg DAILY PO Last administered on 06/17/18 12:19; Admin Dose 40 MG; Start 06/07/18 at 09:00 Celecoxib (Celebrex) 100 mg BID PO Last administered on 06/17/18 08:42; Admin Dose 100 MG; Start 06/06/18 at 14:00 Epoetin Calos (Epogen (Esrd)) 10,000 units MoWeFr@17 SC Last administered on 06/14/18 18:42; Admin Dose 10,000 UNITS; Start 06/07/18 at 17:00 Multivit/Ca Carb/ B Cmplx/FA/Prenat (Fany-Jose Luis) 1 tab DAILY PO Last administered on 06/17/18 08:41; Admin Dose 1 TAB; Start 06/08/18 at 09:00 Baclofen (Lioresal) 10 mg Q8H PRN PO Cramps Last administered on 06/08/18 22:34; Admin Dose 10 MG; Start 06/08/18 at 22:30 Morphine Sulfate (morphine) 0.5 mg Q4 PRN IV SEVERE PAIN LEVEL 7-10 Last administered on 06/14/18 07:24; Admin Dose 0.5 MG; Start 06/08/18 at 22:30 Heparin Sodium (Porcine) (Heparin (1000 Units/ml)) 2,800 unit PRN PRN CATHETER DIALYSIS Last administered on 06/12/18 15:23; Admin Dose 2,800 UNIT; Start 06/09/18 at 16:30 Lidocaine (Lidoderm) 1 patch DAILY TD Last administered on 06/17/18 08:41; Admin Dose 1 PATCH; Start 06/11/18 at 11:00 Metoclopramide HCl (Reglan) 5 mg AC MEALS PO Last administered on 06/17/18 12:18; Admin Dose 5 MG; Start 06/11/18 at 11:30 Ondansetron HCl (Zofran Inj) 4 mg Q6H PRN IV NAUSEA AND/OR VOMITING Last administered on 06/12/18 15:15; Admin Dose 4 MG; Start 06/12/18 at 15:30 Lisinopril (Zestril) 2.5 mg QHS PO Last administered on 06/16/18 21:16; Admin Dose 2.5 MG; Start 06/13/18 at 21:00 MELLO SAUER MD Jun 17, 2018 12:42
[2018-06-17] MEDS: DIGOXIN 0.125 MG TAB PO SCH (13:36)
[2018-06-17] MEDS: HEPARIN 1000 UNITS/ML 10 ML INJ CATHETER PRN (19:11)
--- NOTE | 2018-06-17 19:49 | CONS ---
Date/Time of Note Date/Time of Note DATE: 06/17/18 TIME: 19:47 Consult Date/Type/Reason Admit Date/Time Jun 06, 2018 at 08:52 Initial Consult Date 06/08/18 Type of Consultation: Urology Reason for Consultation Gross hematuria Requesting Provider: RUTH VAZQUEZ MD Subjective Patient just finished having dialysis. He is comfortable and denies any pain. Objective Vital Signs Date Temp Pulse Resp B/P (MAP) Pulse Ox O2 O2 Flow FiO2 Time Delivery Rate 06/17/18 72 16 126/55 99 Nasal 3.0 19:14 (78) Cannula 06/17/18 98.2 16:03 06/16/18 28 13:46 Intake and Output 06/16/18 06/16/18 06/17/18 1515:00 23:00 07:00 IntakeIntake Total 700 ml 250 ml OutputOutput Total 1000 ml 900 ml BalanceBalance -300 ml -650 ml Exam The Llamas catheter is draining well, the irrigation is running at a low rate and the return is water clear. The urine cytology from the bladder washing is negative Results/Medications Result Diagram: 06/17/18 0459 06/17/18 0459 Results 24 hrs Laboratory Tests Test 06/17/18 04:59 White Blood Count 21.7 H Red Blood Count 3.28 L Hemoglobin 9.7 L Hematocrit 29.8 L Mean Corpuscular Volume 90.9 Mean Corpuscular Hemoglobin 29.6 Mean Corpuscular Hemoglobin Concent 32.6 Red Cell Distribution Width 13.9 Platelet Count 266 Mean Platelet Volume 10.0 Immature Granulocytes % 2.600 H Neutrophils % 82.7 H Lymphocytes % 3.0 L Monocytes % 8.3 Eosinophils % 2.9 Basophils % 0.5 Nucleated Red Blood Cells % 0.1 H Immature Granulocytes # 0.560 H Neutrophils # 18.0 H Lymphocytes # 0.6 L Monocytes # 1.8 H Eosinophils # 0.6 H Basophils # 0.1 Nucleated Red Blood Cells # 0.0 Sodium Level 131 L Potassium Level 5.1 Chloride Level 91 L Carbon Dioxide Level 24 Anion Gap 16 H Blood Urea Nitrogen 101 H Creatinine 8.24 H Est Glomerular Filtrat Rate mL/min Glucose Level 97 Calcium Level 9.0 Phosphorus Level 4.5 Magnesium Level 2.1 Medications Current Medications Acetaminophen (Tylenol Tab) 500 mg Q4H PRN PO MILD PAIN(1-3)OR ELEVATED TEMP Last administered on 06/09/18 15:06; Admin Dose 500 MG; Start 06/06/18 at 11:00 Allopurinol (Zyloprim) 300 mg DAILY PO Last administered on 06/17/18 08:42; Admin Dose 300 MG; Start 06/07/18 at 09:00 Aspirin (Aspirin) 81 mg DAILY PO Last administered on 06/17/18 08:41; Admin Dose 81 MG; Start 06/06/18 at 11:00 Atorvastatin Calcium (Lipitor) 20 mg QHS PO Last administered on 06/16/18 21:14; Admin Dose 20 MG; Start 06/06/18 at 21:00 Calcium Carbonate (Oyster Shell Calcium) 0.5 gm BID PO Last administered on 06/17/18 08:41; Admin Dose 0.5 GM; Start 06/06/18 at 21:00 Clopidogrel Bisulfate (plaVIX) 75 mg DAILY PO Last administered on 06/17/18 08:41; Admin Dose 75 MG; Start 06/06/18 at 11:00 Isosorbide Mononitrate (Imdur) 120 mg DAILY PO Last administered on 06/16/18 08:38; Admin Dose 120 MG; Start 06/06/18 at 11:00 Metoprolol Tartrate (Lopressor) 25 mg BID PO Last administered on 06/16/18 21:17; Admin Dose 25 MG; Start 06/06/18 at 11:00 Primidone (Mysoline) 25 mg HS PO Last administered on 06/16/18 21:13; Admin Dose 25 MG; Start 06/06/18 at 21:00 Tramadol HCl (Ultram) 50 mg Q6H PRN PO PAIN Last administered on 06/12/18 17:33; Admin Dose 50 MG; Start 06/06/18 at 11:00 IV Flush (NS 3 ml) 3 ml PER PROTOCOL IV ; Start 06/06/18 at 14:00 Lorazepam (Ativan) 0.5 mg Q8H PRN PO ANXIETY Last administered on 06/14/18 20:33; Admin Dose 0.5 MG; Start 06/06/18 at 14:00 Acetaminophen/ Hydrocodone Bitart ([place] (5/325)) 1 tab Q6H PRN PO PAIN LEVEL 4-6 Last administered on 06/16/18 14:19; Admin Dose 1 TAB; Start 06/06/18 at 14:00 Docusate Sodium (Colace) 100 mg Q12H PRN PO CONSTIPATION Last administered on 06/17/18 07:05; Admin Dose 100 MG; Start 06/06/18 at 14:00 Famotidine (Pepcid) 20 mg Q24H PO Last administered on 06/16/18 21:14; Admin Dose 20 MG; Start 06/06/18 at 21:00 Digoxin (Digoxin) 0.0625 mg DAILY@1300 PO Last administered on 06/17/18 13:36; Admin Dose 0.0625 MG; Start 06/07/18 at 13:00 Furosemide (Lasix) 40 mg DAILY PO Last administered on 06/17/18 12:19; Admin Dose 40 MG; Start 06/07/18 at 09:00 Celecoxib (Celebrex) 100 mg BID PO Last administered on 06/17/18 08:42; Admin Dose 100 MG; Start 06/06/18 at 14:00 Epoetin Calos (Epogen (Esrd)) 10,000 units MoWeFr@17 SC Last administered on 06/14/18 18:42; Admin Dose 10,000 UNITS; Start 06/07/18 at 17:00 Multivit/Ca Carb/ B Cmplx/FA/Prenat (Fany-Jose Luis) 1 tab DAILY PO Last administered on 06/17/18 08:41; Admin Dose 1 TAB; Start 06/08/18 at 09:00 Baclofen (Lioresal) 10 mg Q8H PRN PO Cramps Last administered on 06/08/18at 22:34; Admin Dose 10 MG; Start 06/08/18 at 22:30 Morphine Sulfate (morphine) 0.5 mg Q4 PRN IV SEVERE PAIN LEVEL 7-10 Last administered on 06/14/18 07:24; Admin Dose 0.5 MG; Start 06/08/18 at 22:30 Heparin Sodium (Porcine) (Heparin (1000 Units/ml)) 2,800 unit PRN PRN CATHETER DIALYSIS Last administered on 06/17/18 19:11; Admin Dose 6,100 UNIT; Start 06/09/18 at 16:30 Lidocaine (Lidoderm) 1 patch DAILY TD Last administered on 06/17/18 08:41; Admin Dose 1 PATCH; Start 06/11/18 at 11:00 Metoclopramide HCl (Reglan) 5 mg AC MEALS PO Last administered on 06/17/18 17:21; Admin Dose 5 MG; Start 06/11/18 at 11:30 Ondansetron HCl (Zofran Inj) 4 mg Q6H PRN IV NAUSEA AND/OR VOMITING Last administered on 06/12/18 15:15; Admin Dose 4 MG; Start 06/12/18 at 15:30 Lisinopril (Zestril) 2.5 mg QHS PO Last administered on 06/16/18 21:16; Admin Dose 2.5 MG; Start 06/13/18 at 21:00 Assessment/Plan Chief Complaint/Hosp Course 88-year-old male had gone to the bathroom both for stool and urination. He was trying to get off of the toilet and slid and actually got himself trapped between the toilet and the bathtub. He did not have head trauma and he did not have loss of consciousness. He did not have chest pain or palpitations. He was stuck in that position for minimum of 2 hours before finally requesting external help. He was brought to the emergency room and admitted. He is on hemodialysis and went to the emergency room try to get a urine specimen from him he was not able to urinate and they did a straight cath on him and since then he has had gross hematuria. Therefore a urological consultation was requested. The patient has been on hemodialysis for about 5 years. He still makes urine and urinates once at night and about 4 times a day. He has undergone a transurethral resection of the prostate when he was 59 years old. Because of the gross hematuria a 24 [place] Llamas catheter, three-way with a 30 cc balloon was inserted on 06/08/2018 and the bladder was irrigated thoroughly and the blood clots were removed. Patient was started on continuous bladder irrigation. Once the return from the irrigation was clear I did stop the irrigation. However the nurse called me back the same day stating that the urine is bloody so I had her restart the irrigation. The fact that this patient is on hemodialysis he does not make much urine to dilute any bleeding coming from his bladder. And he does have heart problems and is on Plavix and aspirin. If I was to scope him he will need these to be stopped which would increase his heart risks. I prefer to be conservative and avoid any surgical intervention unless we have no choice. For now I will continue the bladder irrigation and stop it at 6 AM tomorrow and hopefully it remains clear. HAI URIBE MD Jun 17, 2018 19:49
[2018-06-17] MEDS: ATORVASTATIN 20 MG TAB PO SCH (21:11)
[2018-06-17] MEDS: LISINOPRIL 5 MG TAB PO SCH (21:12)
[2018-06-17] MEDS: PRIMIDONE 50 MG TAB PO SCH (21:13)
[2018-06-17] MEDS: FAMOTIDINE 20 MG TAB PO SCH (21:14)
[2018-06-17] MEDS: EPOETIN 10000 UNITS/1 ML INJ (ESRD) SC SCH (21:17)
[2018-06-17] MEDS: LORAZEPAM 0.5 MG TAB PO PRN (23:46)
[2018-06-17] MEDS: HYDROCODONE/APAP (5/325) TAB PO PRN (23:46)
[2018-06-18] VITALS (9 sets, daily range): BP systolic 117–157; BP diastolic 56–68; PULSE 65–92; RESP 18–19
[2018-06-18] MEDS: morphine 4 MG/ML VIAL IV PRN (02:51)
--- NOTE | 2018-06-18 07:36 | CONS ---
Date/Time of Note Date/Time of Note DATE: 06/18/18 TIME: 07:32 Assessment/Plan Assessment/Plan Assessment/Plan 1. End-stage renal disease on maintenance hemodialysis. He is due for hemodialysis tomorrow and I will order dialysis. 2. Altered mental status with some episodes of confusion. He seems less responsive today. 3. Leukocytosis , etiology not clear , afebrile . 4. Thrombosed left upper arm AV fistula. He now has a right femoral [place] catheter for dialysis. 5. Anemia of chronic kidney disease 6. Urinary retention with Llamas catheter in place 7. Dysphasia . he is having a video swallowing study today. Result Diagram: 06/17/18 0459 06/17/18 0459 Consultation Date/Type/Reason Admit Date/Time Jun 06, 2018 at 08:52 Initial Consult Date 06/08/18 Requesting Provider: RUTH VAZQUEZ MD 24 HR Interval Summary Free Text/Dictation He is being seen in nephrologic follow-up. He is lethargic but does respond to verbal stimuli. He is not talking much this morning. He does follow simple commands. He had hemodialysis yesterday and 2 L of fluid was removed. Constitutional: no complaints Exam/Review of Systems Vital Signs Vitals Vital Signs Date Temp Pulse Resp B/P (MAP) Pulse Ox O2 O2 Flow FiO2 Time Delivery Rate 06/18/18 98.3 73 18 137/67 100 Nasal 07:19 (90) Cannula 06/17/18 3.0 20:00 06/16/18 28 13:46 Intake and Output 06/17/18 06/17/18 06/18/18 1515:00 23:00 07:00 IntakeIntake Total 1200 ml 350 ml OutputOutput Total 3900 ml 350 ml BalanceBalance -2700 ml 0 ml Exam Constitutional: alert, frail Neck: supple, non-tender Respiratory: diminished breath sounds Cardiovascular: regular rate and rhythm Gastrointestinal: soft Musculoskeletal: nl extremities to inspection Medications Medications Current Medications Acetaminophen (Tylenol Tab) 500 mg Q4H PRN PO MILD PAIN(1-3)OR ELEVATED TEMP Last administered on 06/09/18at 15:06; Admin Dose 500 MG; Start 06/06/18 at 11:00 Allopurinol (Zyloprim) 300 mg DAILY PO Last administered on 06/17/18at 08:42; Admin Dose 300 MG; Start 06/07/18 at 09:00 Aspirin (Aspirin) 81 mg DAILY PO Last administered on 06/17/18 08:41; Admin Dose 81 MG; Start 06/06/18 at 11:00 Atorvastatin Calcium (Lipitor) 20 mg QHS PO Last administered on 06/17/18 21:11; Admin Dose 20 MG; Start 06/06/18 at 21:00 Calcium Carbonate (Oyster Shell Calcium) 0.5 gm BID PO Last administered on 06/17/18 21:13; Admin Dose 0.5 GM; Start 06/06/18 at 21:00 Clopidogrel Bisulfate (plaVIX) 75 mg DAILY PO Last administered on 06/17/18 08: 41; Admin Dose 75 MG; Start 06/06/18 at 11:00 Isosorbide Mononitrate (Imdur) 120 mg DAILY PO Last administered on 06/16/18 08:38; Admin Dose 120 MG; Start 06/06/18 at 11:00 Metoprolol Tartrate (Lopressor) 25 mg BID PO Last administered on 06/17/18 21:14; Admin Dose 25 MG; Start 06/06/18 at 11:00 Primidone (Mysoline) 25 mg HS PO Last administered on 06/17/18 21:13; Admin Dose 25 MG; Start 06/06/18 at 21:00 Tramadol HCl (Ultram) 50 mg Q6H PRN PO PAIN Last administered on 06/12/18 17:33; Admin Dose 50 MG; Start 06/06/18 at 11:00 IV Flush (NS 3 ml) 3 ml PER PROTOCOL IV ; Start 06/06/18 at 14:00 Lorazepam (Ativan) 0.5 mg Q8H PRN PO ANXIETY Last administered on 06/17/18 23:46; Admin Dose 0.5 MG; Start 06/06/18 at 14:00 Acetaminophen/ Hydrocodone Bitart ([place] (5/325)) 1 tab Q6H PRN PO PAIN LEVEL 4-6 Last administered on 06/17/18 23:46; Admin Dose 1 TAB; Start 06/06/18 at 14:00 Docusate Sodium (Colace) 100 mg Q12H PRN PO CONSTIPATION Last administered on 06/17/18 21:18; Admin Dose 100 MG; Start 06/06/18 at 14:00 Famotidine (Pepcid) 20 mg Q24H PO Last administered on 06/17/18 21:14; Admin Dose 20 MG; Start 06/06/18 at 21:00 Digoxin (Digoxin) 0.0625 mg DAILY@1300 PO Last administered on 06/17/18 13:36; Admin Dose 0.0625 MG; Start 06/07/18 at 13:00 Furosemide (Lasix) 40 mg DAILY PO Last administered on 06/17/18 12:19; Admin Dose 40 MG; Start 06/07/18 at 09:00 Celecoxib (Celebrex) 100 mg BID PO Last administered on 06/17/18 21:12; Admin Dose 100 MG; Start 06/06/18 at 14:00 Epoetin Calos (Epogen (Esrd)) 10,000 units MoWeFr@17 SC Last administered on 06/17/18 21:17; Admin Dose 10,000 UNITS; Start 06/07/18 at 17:00 Multivit/Ca Carb/ B Cmplx/FA/Prenat (Fany-Jose Luis) 1 tab DAILY PO Last administered on 06/17/18 08:41; Admin Dose 1 TAB; Start 06/08/18 at 09:00 Baclofen (Lioresal) 10 mg Q8H PRN PO Cramps Last administered on 06/08/18at 22:34; Admin Dose 10 MG; Start 06/08/18 at 22:30 Morphine Sulfate (morphine) 0.5 mg Q4 PRN IV SEVERE PAIN LEVEL 7-10 Last a dministered on 06/18/18 02:51; Admin Dose 0.5 MG; Start 06/08/18 at 22:30 Heparin Sodium (Porcine) (Heparin (1000 Units/ml)) 2,800 unit PRN PRN CATHETER DIALYSIS Last administered on 06/17/18 19:11; Admin Dose 6,100 UNIT; Start 06/09/18 at 16:30 Lidocaine (Lidoderm) 1 patch DAILY TD Last administered on 06/17/18 08:41; Admin Dose 1 PATCH; Start 06/11/18 at 11:00 Metoclopramide HCl (Reglan) 5 mg AC MEALS PO Last administered on 06/17/18 17:21; Admin Dose 5 MG; Start 06/11/18 at 11:30 Ondansetron HCl (Zofran Inj) 4 mg Q6H PRN IV NAUSEA AND/OR VOMITING Last administered on 06/12/18at 15:15; Admin Dose 4 MG; Start 06/12/18 at 15:30 Lisinopril (Zestril) 2.5 mg QHS PO Last administered on 06/17/18at 21:12; Admin Dose 2.5 MG; Start 06/13/18 at 21:00 DEMARCUS CHING MD Jun 18, 2018 07:36
[2018-06-18] MEDS: LIDOCAINE 5% PATCH TD SCH (08:17)
[2018-06-18] MEDS: CLOPIDOGREL 75 MG TAB PO SCH (08:20)
[2018-06-18] MEDS: ASPIRIN 81 MG TAB PO SCH (08:20)
[2018-06-18] MEDS: METOCLOPRAMIDE 5 MG TAB PO SCH ×2 (08:20→12:48)
[2018-06-18] MEDS: CALCIUM CARBONATE 1.25 GM TAB PO SCH ×2 (08:21→20:59)
[2018-06-18] MEDS: MULTIVIT/CA CARB/B CMPLX/FA TAB PO SCH (08:21)
[2018-06-18] MEDS: ISOSORBIDE MONONITRATE(SR)60 MG TAB PO SCH (08:21)
[2018-06-18] MEDS: CELECOXIB 100 MG CAP PO SCH ×2 (08:21→20:58)
[2018-06-18] MEDS: ALLOPURINOL 300 MG TAB PO SCH (08:21)
[2018-06-18] MEDS: METOPROLOL 25 MG TAB PO SCH ×2 (08:21→20:58)
[2018-06-18] MEDS: FUROSEMIDE 40 MG TAB PO SCH (08:22)
[2018-06-18] MEDS: LACTULOSE 30ML CUP PO PRN (08:29)
[2018-06-18] MEDS ORDERED: BARIUM SULFATE 135 ML (E-Z HD) PO ONE (11:18)
--- NOTE | 2018-06-18 13:21 | PN ---
Date/Time of Note Date/Time of Note DATE: 06/18/18 TIME: 13:17 Assessment/Plan VTE Prophylaxis Risk score (from [facility])>0 risk: 11 SCD applied (from Ns): Yes Pharmacological prophylaxis: heparin Lines/Catheters IV Catheter Type (from [facility]): Ministerio cath Urinary Cath still in place: Yes Reason Cath still needed: urinary retention Assessment/Plan Problems: (1) Dysphagia Status: Acute Comment: His therapy is working with him but is had a formalized swallow study performed. Results are pending at this time. However of somewhat concerned about why he is having so which trouble. Just to be on the safe side I am going to hold his metoclopramide in case this is altering his mental status Qualifiers: Dysphagia type: unspecified Qualified Codes: R13.10 - Dysphagia, uns pecified (2) End stage renal disease on dialysis Status: Chronic Comment: As per nephrology (3) Leukocytosis Status: Acute Comment: Noted. Cultures are negative Qualifiers: Leukocytosis type: unspecified Qualified Codes: D72.829 - Elevated white blood cell count, unspecified (4) Non-STEMI (non-ST elevated myocardial infarction) Onset Date: ~ 06/06/2018 Status: Acute Comment: Noted. On appropriate beta-blockade (5) Systolic CHF with reduced left ventricular function, NYHA class 3 Status: Chronic Comment: On full medical therapy (6) Hypertension Status: Chronic Comment: Adequate control Qualifiers: Hypertension type: essential hypertension Qualified Codes: I10 - Essential (primary) hypertension (7) Hyperlipidemia Status: Chronic Comment: On statin therapy Qualifiers: Hyperlipidemia type: pure hypercholesterolemia Qualified Codes: E78.00 - Pure hypercholesterolemia, unspecified (8) Hematuria Status: Acute Comment: Fortunately clearing up Qualifiers: Hematuria type: unspecified type Qualified Codes: R31.9 - Hematuria, unspecified (9) Prostatic hypertrophy Status: Chronic Comment: Noted. He has a Llamas catheter in place (10) Poor appetite Status: Resolved Comment: As per speech therapy for the swallowing study. He may end up needing a PEG tube Result Diagram: 06/17/189 06/17/18458 Subjective 24 Hr Interval Summary Free Text/Dictation Patient spouse at bedside. Subjective hx not possible: pt non-verbal Exam/Review of Systems Vital Signs Vitals Vital Signs Date Temp Pulse Resp B/P (MAP) Pulse Ox O2 O2 Flow FiO2 Time Delivery Rate 06/18/18 68 12:16 06/18/18 98.6 18 117/56 99 Venturi 11:28 (76) Mask 06/18/18 3.0 07:35 06/16/18 28 13:46 Intake and Output 06/17/18 06/17/18 06/18/18 1515:00 23:00 07:00 IntakeIntake Total 1200 ml 350 ml OutputOutput Total 3900 ml 350 ml BalanceBalance -2700 ml 0 ml Exam He is less interactive today than he had been in the past. Constitutional: non-verbal Head: normocephalic, atraumatic Eyes: nl conjunctiva, EOMI, nl lids, nl sclera Neck: supple, non-tender Respiratory: clear to auscultation, normal air movement Gastrointestinal: soft, nl liver, spleen, non-tender Neurological: WOMEN'S LACROSSE COACH II-XII intact, other (Not well responsive) Medications Medications Current Medications Acetaminophen (Tylenol Tab) 500 mg Q4H PRN PO MILD PAIN(1-3)OR ELEVATED TEMP Last administered on 06/09/18at 15:06; Admin Dose 500 MG; Start 06/06/18 at 11:00 Allopurinol (Zyloprim) 300 mg DAILY PO Last administered on 06/18/18 08:21; Admin Dose 300 MG; Start 06/07/18 at 09:00 Aspirin (Aspirin) 81 mg DAILY PO Last administered on 06/18/18 08:20; Admin Dose 81 MG; Start 06/06/18 at 11:00 Atorvastatin Calcium (Lipitor) 20 mg QHS PO Last administered on 06/17/18 21:11; Admin Dose 20 MG; Start 06/06/18 at 21:00 Calcium Carbonate (Oyster Shell Calcium) 0.5 gm BID PO Last administered on 06/18/18 08:21; Admin Dose 0.5 GM; Start 06/06/18 at 21:00 Clopidogrel Bisulfate (plaVIX) 75 mg DAILY PO Last administered on 06/18/18 08:20; Admin Dose 75 MG; Start 06/06/18 at 11:00 Isosorbide Mononitrate (Imdur) 120 mg DAILY PO Last administered on 06/18/18 08:21; Admin Dose 120 MG; Start 06/06/18 at 11:00 Metoprolol Tartrate (Lopressor) 25 mg BID PO Last administered on 06/18/18 08:21; Admin Dose 25 MG; Start 06/06/18 at 11:00 Primidone (Mysoline) 25 mg HS PO Last administered on 06/17/18 21:13; Admin Dose 25 MG; Start 06/06/18 at 21:00 Tramadol HCl (Ultram) 50 mg Q6H PRN PO PAIN Last administered on 06/12/18 17:33; Admin Dose 50 MG; Start 06/06/18 at 11:00 IV Flush (NS 3 ml) 3 ml PER PROTOCOL IV ; Start 06/06/18 at 14:00 Lorazepam (Ativan) 0.5 mg Q8H PRN PO ANXIETY Last administered on 06/17/18 23:46; Admin Dose 0.5 MG; Start 06/06/18 at 14:00 Acetaminophen/ Hydrocodone Bitart ([place] (5/325)) 1 tab Q6H PRN PO PAIN LEVEL 4-6 Last administered on 06/17/18 23:46; Admin Dose 1 TAB; Start 06/06/18 at 14:00 Famotidine (Pepcid) 20 mg Q24H PO Last administered on 06/17/18 21:14; Admin Dose 20 MG; Start 06/06/18 at 21:00 Digoxin (Digoxin) 0.0625 mg DAILY@1300 PO Last administered on 06/17/18 13:36; Admin Dose 0.0625 MG; Start 06/07/18 at 13:00 Furosemide (Lasix) 40 mg DAILY PO Last administered on 06/18/18 08:22; Admin Dose 40 MG; Start 06/07/18 at 09:00 Celecoxib (Celebrex) 100 mg BID PO Last administered on 06/18/18 08:21; Admin Dose 100 MG; Start 06/06/18 at 14:00 Epoetin Calos (Epogen (Esrd)) 10,000 units MoWeFr@17 SC Last administered on 06/17/18 21:17; Admin Dose 10,000 UNITS; Start 06/07/18 at 17:00 Multivit/Ca Carb/ B Cmplx/FA/Prenat (Fany-Jose Luis) 1 tab DAILY PO Last administered on 06/18/18 08:21; Admin Dose 1 TAB; Start 06/08/18 at 09:00 Baclofen (Lioresal) 10 mg Q8H PRN PO Cramps Last administered on 06/08/18 22: 34; Admin Dose 10 MG; Start 06/08/18 at 22:30 Morphine Sulfate (morphine) 0.5 mg Q4 PRN IV SEVERE PAIN LEVEL 7-10 Last administered on 06/18/18 02:51; Admin Dose 0.5 MG; Start 06/08/18 at 22:30 Heparin Sodium (Porcine) (Heparin (1000 Units/ml)) 2,800 unit PRN PRN CATHETER DIALYSIS Last administered on 06/17/18 19:11; Admin Dose 6,100 UNIT; Start 06/09/18 at 16:30 Lidocaine (Lidoderm) 1 patch DAILY TD Last administered on 06/18/18 08:17; Admin Dose 1 PATCH; Start 06/11/18 at 11:00 Metoclopramide HCl (Reglan) 5 mg AC MEALS PO Last administered on 06/18/18 12:48; Admin Dose 5 MG; Start 06/11/18 at 11:30 Ondansetron HCl (Zofran Inj) 4 mg Q6H PRN IV NAUSEA AND/OR VOMITING Last administered on 06/12/18 15:15; Admin Dose 4 MG; Start 06/12/18 at 15:30 Lisinopril (Zestril) 2.5 mg QHS PO Last administered on 06/17/18 21:12; Admin Dose 2.5 MG; Start 06/13/18 at 21:00 Docusate Sodium (Colace) 100 mg Q12H PO ; Start 06/18/18 at 14:00 Lactulose (Enulose) 20 gm DAILY PRN PO CONSTIPATION Last administered on 06/18/18 08:29; Admin Dose 20 GM; Start 06/18/18 at 08:00 RUTH VAZQUEZ MD Jun 18, 2018 13:21
[2018-06-18] MEDS: DIGOXIN 0.125 MG TAB PO SCH (13:39)
[2018-06-18] MEDS ORDERED: DOCUSATE SODIUM 100 MG CAP PO SCH (14:00)
[2018-06-18] MEDS: HYDROCODONE/APAP (5/325) TAB PO PRN (14:32)
--- NOTE | 2018-06-18 17:29 | CONS ---
Date/Time of Note Date/Time of Note DATE: 06/18/18 TIME: 17:26 Consult Date/Type/Reason Admit Date/Time Jun 06, 2018 at 08:52 Initial Consult Date 06/08/18 Type of Consultation: Urology Reason for Consultation Gross hematuria Requesting Provider: RUTH VAZQUEZ MD Subjective Patient is awake, is weak and has no pain. Objective Vital Signs Date Temp Pulse Resp B/P (MAP) Pulse Ox O2 O2 Flow FiO2 Time Delivery Rate 06/18/18 75 16:20 06/18/18 97.8 18 156/60 95 Nasal 15:57 (92) Cannula 06/18/18 3.0 07:35 06/16/18 28 13:46 Intake and Output 06/17/18 06/17/18 06/18/18 1515:00 23:00 07:00 IntakeIntake Total 1200 ml 350 ml OutputOutput Total 3900 ml 350 ml BalanceBalance -2700 ml 0 ml Exam The bladder irrigation was stopped this morning. The urine remained clear and he had about 50 mL of yellow colored urine during the day. Results/Medications Result Diagram: 06/17/18 0459 06/17/18 0459 Results 24 hrs Laboratory Tests Test 06/18/18 15:24 Lactic Acid Level 2.0 Medications Current Medications Acetaminophen (Tylenol Tab) 500 mg Q4H PRN PO MILD PAIN(1-3)OR ELEVATED TEMP Last administered on 06/09/18at 15:06; Admin Dose 500 MG; Start 06/06/18 at 11:00 Allopurinol (Zyloprim) 300 mg DAILY PO Last administered on 06/18/18 08:21; Admin Dose 300 MG; Start 06/07/18 at 09:00 Aspirin (Aspirin) 81 mg DAILY PO Last administered on 06/18/18 08:20; Admin Dose 81 MG; Start 06/06/18 at 11:00 Atorvastatin Calcium (Lipitor) 20 mg QHS PO Last administered on 06/17/18 21:11; Admin Dose 20 MG; Start 06/06/18 at 21:00 Calcium Carbonate (Oyster Shell Calcium) 0.5 gm BID PO Last administered on 06/18/18 08:21; Admin Dose 0.5 GM; Start 06/06/18 at 21:00 Clopidogrel Bisulfate (plaVIX) 75 mg DAILY PO Last administered on 06/18/18 08:20; Admin Dose 75 MG; Start 06/06/18 at 11:00 Isosorbide Mononitrate (Imdur) 120 mg DAILY PO Last administered on 06/18/18 08:21; Admin Dose 120 MG; Start 06/06/18 at 11:00 Metoprolol Tartrate (Lopressor) 25 mg BID PO Last administered on 06/18/18 08:21; Admin Dose 25 MG; Start 06/06/18 at 11:00 Primidone (Mysoline) 25 mg HS PO Last administered on 06/17/18 21:13; Admin Dose 25 MG; Start 06/06/18 at 21:00 Tramadol HCl (Ultram) 50 mg Q6H PRN PO PAIN Last administered on 06/12/18 17:33; Admin Dose 50 MG; Start 06/06/18 at 11:00 IV Flush (NS 3 ml) 3 ml PER PROTOCOL IV ; Start 06/06/18 at 14:00 Lorazepam (Ativan) 0.5 mg Q8H PRN PO ANXIETY Last administered on 06/17/18 23:46; Admin Dose 0.5 MG; Start 06/06/18 at 14:00 Acetaminophen/ Hydrocodone Bitart ([place] (5/325)) 1 tab Q6H PRN PO PAIN LEVEL 4-6 Last administered on 06/18/18 14:32; Admin Dose 1 TAB; Start 06/06/18 at 14:00 Famotidine (Pepcid) 20 mg Q24H PO Last administered on 06/17/18 21:14; Admin Dose 20 MG; Start 06/06/18 at 21:00 Digoxin (Digoxin) 0.0625 mg DAILY@1300 PO Last administered on 06/18/18 13:39; Admin Dose 0.0625 MG; Start 06/07/18 at 13:00 Furosemide (Lasix) 40 mg DAILY PO Last administered on 06/18/18 08:22; Admin Dose 40 MG; Start 06/07/18 at 09:00 Celecoxib (Celebrex) 100 mg BID PO Last administered on 06/18/18 08:21; Admin Dose 100 MG; Start 06/06/18 at 14:00 Epoetin Calos (Epogen (Esrd)) 10,000 units MoWeFr@17 SC Last administered on 06/17/18 21:17; Admin Dose 10,000 UNITS; Start 06/07/18 at 17:00 Multivit/Ca Carb/ B Cmplx/FA/Prenat (Fany-Jose Luis) 1 tab DAILY PO Last administered on 06/18/18 08:21; Admin Dose 1 TAB; Start 06/08/18 at 09:00 Baclofen (Lioresal) 10 mg Q8H PRN PO Cramps Last administered on 06/08/18 22:34; Admin Dose 10 MG; Start 06/08/18 at 22:30 Morphine Sulfate (morphine) 0.5 mg Q4 PRN IV SEVERE PAIN LEVEL 7-10 Last administered on 06/18/18 02:51; Admin Dose 0.5 MG; Start 06/08/18 at 22:30 Heparin Sodium (Porcine) (Heparin (1000 Units/ml)) 2,800 unit PRN PRN CATHETER DIALYSIS Last administered on 06/17/18 19:11; Admin Dose 6,100 UNIT; Start 06/09/18 at 16:30 Lidocaine (Lidoderm) 1 patch DAILY TD Last administered on 06/18/18 08:17; Admin Dose 1 PATCH; Start 06/11/18 at 11:00 Metoclopramide HCl (Reglan) 5 mg AC MEALS PO Last administered on 06/18/18 12:48; Admin Dose 5 MG; Start 06/11/18 at 11:30; Status Hold Ondansetron HCl (Zofran Inj) 4 mg Q6H PRN IV NAUSEA AND/OR VOMITING Last administered on 06/12/18 15:15; Admin Dose 4 MG; Start 06/12/18 at 15:30 Lisinopril (Zestril) 2.5 mg QHS PO Last administered on 06/17/18 21:12; Admin Dose 2.5 MG; Start 06/13/18 at 21:00 Docusate Sodium (Colace) 100 mg Q12H PO Last administered on 06/18/18 13:39; Admin Dose 100 MG; Start 06/18/18 at 14:00 Lactulose (Enulose) 20 gm DAILY PRN PO CONSTIPATION Last administered on 06/18/18 08:29; Admin Dose 20 GM; Start 06/18/18 at 08:00 Assessment/Plan Chief Complaint/Hosp Course 88-year-old male had gone to the bathroom both for stool and urination. He was trying to get off of the toilet and slid and actually got himself trapped between the toilet and the bathtub. He did not have head trauma and he did not have loss of consciousness. He did not have chest pain or p alpitations. He was stuck in that position for minimum of 2 hours before finally requesting external help. He was brought to the emergency room and admitted. He is on hemodialysis and went to the emergency room try to get a urine specimen from him he was not able to urinate and they did a straight cath on him and since then he has had gross hematuria. Therefore a urological consultation was requested. The patient has been on hemodialysis for about 5 years. He still makes urine and urinates once at night and about 4 times a day. He has undergone a transurethral resection of the prostate when he was 59 years old. Because of the gross hematuria a 24 [place] Llamas catheter, three-way with a 30 cc balloon was inserted on 06/08/2018 and the bladder was irrigated thoroughly and the blood clots were removed. Patient was started on continuous bladder irrigation. Once the return from the irrigation was clear I did stop the irrigation. However the nurse called me back the same day stating that the urine is bloody so I had her restart the irrigation. The fact that this patient is on hemodialysis he does not make much urine to dilute any bleeding coming from his bladder. And he does have heart problems and is on Plavix and aspirin. If I was to scope him he will need these to be stopped which would increase his heart risks. I prefer to be conservative and avoid any surgical i ntervention unless we have no choice. The bladder irrigation was stopped earlier this morning. He did have about 50 mL of yellow colored urine during the day. There is no gross hematuria at the present. Since he is on hemodialysis he does not make much urine. He only made 50 mL for the day and that remained clear. I would watch him overnight and if the urine remains clear in the morning I will discontinue the Llamas catheter. HAI URIBE MD Jun 18, 2018 17:29
[2018-06-18] MEDS: PRIMIDONE 50 MG TAB PO SCH (20:56)
[2018-06-18] MEDS: FAMOTIDINE 20 MG TAB PO SCH (20:57)
[2018-06-18] MEDS: LISINOPRIL 5 MG TAB PO SCH (20:57)
[2018-06-18] MEDS: ATORVASTATIN 20 MG TAB PO SCH (20:58)
[2018-06-19] VITALS (23 sets, daily range): BP systolic 108–160; BP diastolic 47–73; PULSE 70–102; RESP 18–20
[2018-06-19] MEDS ORDERED: DOCUSATE SODIUM 100 MG CAP PO ONE (05:39)
[2018-06-19] MEDS: DOCUSATE SODIUM 100 MG CAP PO SCH ×2 (06:09→09:17)
[2018-06-19] MEDS: LACTULOSE 30ML CUP PO PRN (06:09)
--- NOTE | 2018-06-19 07:48 | CONS ---
Date/Time of Note Date/Time of Note DATE: 06/19/18 TIME: 07:45 Assessment/Plan Assessment/Plan Assessment/Plan 1. End-stage renal disease on maintenance hemodialysis. He is due for hemodialysis today and it has been ordered. 2. Altered mental status with some episodes of confusion. He seems less responsive today. I have discontinued some of his medications including primidone and baclofen. 3. Leukocytosis , etiology not clear , afebrile . 4. Thrombosed left upper arm AV fistula. He now has a right femoral Ministerio catheter for dialysis. 5. Anemia of chronic kidney disease 6. Urinary retention with Llamas catheter in place 7. Dysphasia . He did not show aspiration on the barium swallow. Result Diagram: 06/19/1852306/19/18 0524 Results 24hrs Laboratory Tests Test 06/18/18 15:24 06/19/18 05:24 Lactic Acid Level 2.0 White Blood Count 22.9 H Red Blood Count 3.48 L Hemoglobin 10.1 L Hematocrit 31.3 L Mean Corpuscular Volume 89.9 Mean Corpuscular Hemoglobin 29.0 Mean Corpuscular Hemoglobin Concent 32.3 Red Cell Distribution Width 14.2 Platelet Count 278 Mean Platelet Volume 10.2 Immature Granulocytes % 1.700 H Neutrophils % 87.4 H Lymphocytes % 1.7 L Monocytes % 7.3 Eosinophils % 1.5 Basophils % 0.4 Nucleated Red Blood Cells % 0.0 Immature Granulocytes # 0.400 H Neutrophils # 20.0 H Lymphocytes # 0.4 L Monocytes # 1.7 H Eosinophils # 0.4 Basophils # 0.1 Nucleated Red Blood Cells # 0.0 Sodium Level 134 L Potassium Level 5.2 H Chloride Level 93 L Carbon Dioxide Level 25 Anion Gap 16 H Blood Urea Nitrogen 93 H Creatinine 7.84 H Est Glomerular Filtrat Rate mL/min Glucose Level 130 Calcium Level 9.4 Phosphorus Level 2.8 Magnesium Level 2.2 Total Bilirubin 0.1 L Direct Bilirubin 0.00 Indirect Bilirubin 0.1 Aspartate Amino Transf (AST/SGOT) 50 H Alanine Aminotransferase (ALT/SGPT) 24 Alkaline Phosphatase 299 H Total Protein 6.2 Albumin 3.5 Globulin 2.70 Albumin/Globulin Ratio 1.29 Consultation Date/Type/Reason Admit Date/Time Jun 06, 2018 at 08:52 Initial Consult Date 06/08/18 Requesting Provider: RUHT VAZQUEZ MD 24 HR Interval Summary Free Text/Dictation Jared is being seen in nephrologic follow-up. He is very lethargic. He barely follows simple commands. His is in the room with him. He is due for hemodialysis treatment today. Subjective hx not possible: pt non-verbal Constitutional: disoriented Exam/Review of Systems Vital Signs Vitals Vital Signs Date Temp Pulse Resp B/P (MAP) Pulse Ox O2 O2 Flow FiO2 Time Delivery Rate 06/19/18 98.3 82 18 156/72 98 Nasal 07:13 (100) Cannula 06/19/18 3.0 03:49 06/16/18 28 13:46 Intake and Output 06/18/18 06/18/18 06/19/18 1414:59 22:59 06:59 IntakeIntake Total 250 ml BalanceBalance 250 ml Exam Constitutional: non-verbal, frail Respiratory: clear to auscultation, normal air movement Cardiovascular: regular rate and rhythm Gastrointestinal: soft Musculoskeletal: nl extremities to inspection Medications Medications Current Medications Acetaminophen (Tylenol Tab) 500 mg Q4H PRN PO MILD PAIN(1-3)OR ELEVATED TEMP Last administered on 06/09/18at 15:06; Admin Dose 500 MG; Start 06/06/18 at 11:00 Allopurinol (Zyloprim) 300 mg DAILY PO Last administered on 06/18/18 08:21; Admin Dose 300 MG; Start 06/07/18 at 09:00 Aspirin (Aspirin) 81 mg DAILY PO Last administered on 06/18/18 08:20; Admin Dose 81 MG; Start 06/06/18 at 11:00 Atorvastatin Calcium (Lipitor) 20 mg QHS PO Last administered on 06/18/18 20 :58; Admin Dose 20 MG; Start 06/06/18 at 21:00 Calcium Carbonate (Oyster Shell Calcium) 0.5 gm BID PO Last administered on 06/18/18 20:59; Admin Dose 0.5 GM; Start 06/06/18 at 21:00 Clopidogrel Bisulfate (plaVIX) 75 mg DAILY PO Last administered on 06/18/18 08:20; Admin Dose 75 MG; Start 06/06/18 at 11:00 Isosorbide Mononitrate (Imdur) 120 mg DAILY PO Last administered on 06/18/18 08:21; Admin Dose 120 MG; Start 06/06/18 at 11:00 Metoprolol Tartrate (Lopressor) 25 mg BID PO Last administered on 06/18/18 20:58; Admin Dose 25 MG; Start 06/06/18 at 11:00 Primidone (Mysoline) 25 mg HS PO Last administered on 06/18/18 20:56; Admin Dose 25 MG; Start 06/06/18 at 21:00 Tramadol HCl (Ultram) 50 mg Q6H PRN PO PAIN Last administered on 06/12/18 17:33; Admin Dose 50 MG; Start 06/06/18 at 11:00 IV Flush (NS 3 ml) 3 ml PER PROTOCOL IV ; Start 06/06/18 at 14:00 Lorazepam (Ativan) 0.5 mg Q8H PRN PO ANXIETY Last administered on 06/17/18 23:46; Admin Dose 0.5 MG; Start 06/06/18 at 14:00 Acetaminophen/ Hydrocodone Bitart ([place] (5/325)) 1 tab Q6H PRN PO PAIN LEVEL 4-6 Last administered on 06/18/18 14:32; Admin Dose 1 TAB; Start 06/06/18 at 14:00 Famotidine (Pepcid) 20 mg Q24H PO Last administered on 06/18/18 20:57; Admin Dose 20 MG; Start 06/06/18 at 21:00 Digoxin (Digoxin) 0.0625 mg DAILY@1300 PO Last administered on 06/18/18 13:39; Admin Dose 0.0625 MG; Start 06/07/18 at 13:00 Furosemide (Lasix) 40 mg DAILY PO Last administered on 06/18/18 08:22; Admin Dose 40 MG; Start 06/07/18 at 09:00 Celecoxib (Celebrex) 100 mg BID PO Last administered on 06/18/18 20:58; Admin D ose 100 MG; Start 06/06/18 at 14:00 Epoetin Calos (Epogen (Esrd)) 10,000 units MoWeFr@17 SC Last administered on 06/17/18 21:17; Admin Dose 10,000 UNITS; Start 06/07/18 at 17:00 Multivit/Ca Carb/ B Cmplx/FA/Prenat (Fany-Jose Luis) 1 tab DAILY PO Last administered on 06/18/18 08:21; Admin Dose 1 TAB; Start 06/08/18 at 09:00 Baclofen (Lioresal) 10 mg Q8H PRN PO Cramps Last administered on 06/08/18 22:34; Admin Dose 10 MG; Start 06/08/18 at 22:30 Morphine Sulfate (morphine) 0.5 mg Q4 PRN IV SEVERE PAIN LEVEL 7-10 Last administered on 06/18/18 02:51; Admin Dose 0.5 MG; Start 06/08/18 at 22:30 Heparin Sodium (Porcine) (Heparin (1000 Units/ml)) 2,800 unit PRN PRN CATHETER DIALYSIS Last administered on 06/17/18 19:11; Admin Dose 6,100 UNIT; Start 06/09/18 at 16:30 Lidocaine (Lidoderm) 1 patch DAILY TD Last administered on 06/18/18 08:17; Admin Dose 1 PATCH; Start 06/11/18 at 11:00 Metoclopramide HCl (Reglan) 5 mg AC MEALS PO Last administered on 06/18/18 12:48; Admin Dose 5 MG; Start 06/11/18 at 11:30; Status Hold Ondansetron HCl (Zofran Inj) 4 mg Q6H PRN IV NAUSEA AND/OR VOMITING Last administered on 06/12/18 15:15; Admin Dose 4 MG; Start 06/12/18 at 15:30 Lisinopril (Zestril) 2.5 mg QHS PO Last administered on 06/18/18 20:57; Admin Dose 2.5 MG; Start 06/13/18 at 21:00 Lactulose (Enulose) 20 gm DAILY PRN PO CONSTIPATION Last administered on 06/19/18 06:09; Admin Dose 20 GM; Start 06/18/18 at 08:00 Docusate Sodium (Colace) 100 mg Q12H PO Last administered on 06/19/18 06:09; Admin Dose 100 MG; Start 06/19/18 at 07:00 DEMARCUS CHING MD Jun 19, 2018 07:48
--- NOTE | 2018-06-19 08:11 | CONS ---
Date/Time of Note Date/Time of Note DATE: 06/19/18 TIME: 08:08 Consult Date/Type/Reason Admit Date/Time Jun 06, 2018 at 08:52 Initial Consult Date 06/08/18 Type of Consultation: Urology Reason for Consultation Hematuria Requesting Provider: RUTH VAZQUEZ MD Subjective Patient is comfortable, sleeping. No reported pain Objective Vital Signs Date Temp Pulse Resp B/P (MAP) Pulse Ox O2 O2 Flow FiO2 Time Delivery Rate 06/19/18 98.3 82 18 156/72 98 Nasal 07:13 (100) Cannula 06/19/18 3.0 03:49 06/16/18 28 13:46 Intake and Output 06/18/18 06/18/18 06/19/18 1414:59 22:59 06:59 IntakeIntake Total 250 ml BalanceBalance 250 ml Exam The Llamas catheter is draining clear urine. The reported urine output is 250 mL. Results/Medications Result Diagram: 06/19/18 0524 06/19/18 0524 Results 24 hrs Laboratory Tests Test 06/18/18 15:24 06/19/18 05:24 Lactic Acid Level 2.0 White Blood Count 22.9 H Red Blood Count 3.48 L Hemoglobin 10.1 L Hematocrit 31.3 L Mean Corpuscular Volume 89.9 Mean Corpuscular Hemoglobin 29.0 Mean Corpuscular Hemoglobin Concent 32.3 Red Cell Distribution Width 14.2 Platelet Count 278 Mean Platelet Volume 10.2 Immature Granulocytes % 1.700 H Neutrophils % 87.4 H Lymphocytes % 1.7 L Monocytes % 7.3 Eosinophils % 1.5 Basophils % 0.4 Nucleated Red Blood Cells % 0.0 Immature Granulocytes # 0.400 H Neutrophils # 20.0 H Lymphocytes # 0.4 L Monocytes # 1.7 H Eosinophils # 0.4 Basophils # 0.1 Nucleated Red Blood Cells # 0.0 Sodium Level 134 L Potassium Level 5.2 H Chloride Level 93 L Carbon Dioxide Level 25 Anion Gap 16 H Blood Urea Nitrogen 93 H Creatinine 7.84 H Est Glomerular Filtrat Rate mL/min Glucose Level 130 Calcium Level 9.4 Phosphorus Level 2.8 Magnesium Level 2.2 Total Bilirubin 0.1 L Direct Bilirubin 0.00 Indirect Bilirubin 0.1 Aspartate Amino Transf (AST/SGOT) 50 H Alanine Aminotransferase (ALT/SGPT) 24 Alkaline Phosphatase 299 H Total Protein 6.2 Albumin 3.5 Globulin 2.70 Albumin/Globulin Ratio 1.29 Medications Current Medications Acetaminophen (Tylenol Tab) 500 mg Q4H PRN PO MILD PAIN(1-3)OR ELEVATED TEMP Last administered on 06/09/18 15:06; Admin Dose 500 MG; Start 06/06/18 at 11:00 Allopurinol (Zyloprim) 300 mg DAILY PO Last administered on 06/18/18 08:21; Admin Dose 300 MG; Start 06/07/18 at 09:00 Aspirin (Aspirin) 81 mg DAILY PO Last administered on 06/18/18 08:20; Admin Dose 81 MG; Start 06/06/18 at 11:00 Atorvastatin Calcium (Lipitor) 20 mg QHS PO Last administered on 06/18/18 20:58; Admin Dose 20 MG; Start 06/06/18 at 21:00 Calcium Carbonate (Oyster Shell Calcium) 0.5 gm BID PO Last administered on 06/18/18 20:59; Admin Dose 0.5 GM; Start 06/06/18 at 21:00 Clopidogrel Bisulfate (plaVIX) 75 mg DAILY PO Last administered on 06/18/18 08:20; Admin Dose 75 MG; Start 06/06/18 at 11:00 Isosorbide Mononitrate (Imdur) 120 mg DAILY PO Last administered on 06/18/18 08:21; Admin Dose 120 MG; Start 06/06/18 at 11:00 Metoprolol Tartrate (Lopressor) 25 mg BID PO Last administered on 06/18/18 20:58; Admin Dose 25 MG; Start 06/06/18 at 11:00 Primidone (Mysoline) 25 mg HS PO Last administered on 06/18/18 20:56; Admin Dose 25 MG; Start 06/06/18 at 21:00 Tramadol HCl (Ultram) 50 mg Q6H PRN PO PAIN Last administered on 06/12/18 17:33; Admin Dose 50 MG; Start 06/06/18 at 11:00 IV Flush (NS 3 ml) 3 ml PER PROTOCOL IV ; Start 06/06/18 at 14:00 Lorazepam (Ativan) 0.5 mg Q8H PRN PO ANXIETY Last administered on 06/17/18 23:46; Admin Dose 0.5 MG; Start 06/06/18 at 14:00 Acetaminophen/ Hydrocodone Bitart ([place] (5/325)) 1 tab Q6H PRN PO PAIN LEVEL 4-6 Last administered on 06/18/18 14:32; Admin Dose 1 TAB; Start 06/06/18 at 14:00 Famotidine (Pepcid) 20 mg Q24H PO Last administered on 06/18/18 20:57; Admin Dose 20 MG; Start 06/06/18 at 21:00 Digoxin (Digoxin) 0.0625 mg DAILY@1300 PO Last administered on 06/18/18 13:39; Admin Dose 0.0625 MG; Start 06/07/18 at 13:00 Furosemide (Lasix) 40 mg DAILY PO Last administered on 06/18/18 08:22; Admin Dose 40 MG; Start 06/07/18 at 09:00 Celecoxib (Celebrex) 100 mg BID PO Last administered on 06/18/18 20:58; Admin Dose 100 MG; Start 06/06/18 at 14:00 Epoetin Calos (Epogen (Esrd)) 10,000 units MoWeFr@17 SC Last administered on 06/17/18 21:17; Admin Dose 10,000 UNITS; Start 06/07/18 at 17:00 Multivit/Ca Carb/ B Cmplx/FA/Prenat (Fany-Jose Luis) 1 tab DAILY PO Last administered on 06/18/18 08:21; Admin Dose 1 TAB; Start 06/08/18 at 09:00 Baclofen (Lioresal) 10 mg Q8H PRN PO Cramps Last administered on 06/08/18at 22:34; Admin Dose 10 MG; Start 06/08/18 at 22:30 Morphine Sulfate (morphine) 0.5 mg Q4 PRN IV SEVERE PAIN LEVEL 7-10 Last administered on 06/18/18 02:51; Admin Dose 0.5 MG; Start 06/08/18 at 22:30 Heparin Sodium (Porcine) (Heparin (1000 Units/ml)) 2,800 unit PRN PRN CATHETER DIALYSIS Last administered on 06/17/18 19:11; Admin Dose 6,100 UNIT; Start 06/09/18 at 16:30 Lidocaine (Lidoderm) 1 patch DAILY TD Last administered on 06/18/18 08:17; Admin Dose 1 PATCH; Start 06/11/18 at 11:00 Metoclopramide HCl (Reglan) 5 mg AC MEALS PO Last administered on 06/18/18 12:48; Admin Dose 5 MG; Start 06/11/18 at 11:30; Status Hold Ondansetron HCl (Zofran Inj) 4 mg Q6H PRN IV NAUSEA AND/OR VOMITING Last administered on 06/12/18 15:15; Admin Dose 4 MG; Start 06/12/18 at 15:30 Lisinopril (Zestril) 2.5 mg QHS PO Last administered on 06/18/18 20:57; Admin Dose 2.5 MG; Start 06/13/18 at 21:00 Lactulose (Enulose) 20 gm DAILY PRN PO CONSTIPATION Last administered on 06/19/18 06:09; Admin Dose 20 GM; Start 06/18/18 at 08:00 Docusate Sodium (Colace) 100 mg Q12H PO Last administered on 06/19/18 06:09; Admin Dose 100 MG; Start 06/19/18 at 07:00 Assessment/Plan Chief Complaint/Hosp Course 88-year-old with a history of end-stage renal disease on hemodialysis had gross hematuria. He had continuous bladder irrigation which was stopped and the urine remained clear. Therefore I remove the Llamas catheter this morning. Sent the urine for culture and also cytology. We will observe him and see if he can urinate on his own. HAI URIBE MD Jun 19, 2018 08:10
[2018-06-19] MEDS: ISOSORBIDE MONONITRATE(SR)60 MG TAB PO SCH (09:00)
[2018-06-19] MEDS: FUROSEMIDE 40 MG TAB PO SCH (09:00)
[2018-06-19] MEDS: METOPROLOL 25 MG TAB PO SCH ×2 (09:00→21:53)
[2018-06-19] MEDS: MULTIVIT/CA CARB/B CMPLX/FA TAB PO SCH (09:17)
[2018-06-19] MEDS: CLOPIDOGREL 75 MG TAB PO SCH (09:17)
[2018-06-19] MEDS: CELECOXIB 100 MG CAP PO SCH ×2 (09:17→21:55)
[2018-06-19] MEDS: ASPIRIN 81 MG TAB PO SCH (09:18)
[2018-06-19] MEDS: CALCIUM CARBONATE 1.25 GM TAB PO SCH ×2 (09:18→21:54)
[2018-06-19] MEDS: ALLOPURINOL 300 MG TAB PO SCH (09:18)
[2018-06-19] MEDS: LIDOCAINE 5% PATCH TD SCH (09:20)
--- NOTE | 2018-06-19 15:52 | PN ---
Date/Time of Note Date/Time of Note DATE: 06/19/18 TIME: 15:47 Assessment/Plan VTE Prophylaxis Risk score (from Ns)>0 risk: 12 SCD applied (from Ns): Yes Pharmacological prophylaxis: NA/contraindicated Pharm contraindication: renal impairment Lines/Catheters [facility] hussein cath Urinary Cath still in place: Yes Reason Cath still needed: urinary retention Assessment/Plan Result Diagram: 06/19/18 0524 06/19/18 0524 Results 24hrs Laboratory Tests Test 06/19/18 05:24 White Blood Count 22.9 H Red Blood Count 3.48 L Hemoglobin 10.1 L Hematocrit 31.3 L Mean Corpuscular Volume 89.9 Mean Corpuscular Hemoglobin 29.0 Mean Corpuscular Hemoglobin Concent 32.3 Red Cell Distribution Width 14.2 Platelet Count 278 Mean Platelet Volume 10.2 Immature Granulocytes % 1.700 H Neutrophils % 87.4 H Lymphocytes % 1.7 L Monocytes % 7.3 Eosinophils % 1.5 Basophils % 0.4 Nucleated Red Blood Cells % 0.0 Immature Granulocytes # 0.400 H Neutrophils # 20.0 H Lymphocytes # 0.4 L Monocytes # 1.7 H Eosinophils # 0.4 Basophils # 0.1 Nucleated Red Blood Cells # 0.0 Sodium Level 134 L Potassium Level 5.2 H Chloride Level 93 L Carbon Dioxide Level 25 Anion Gap 16 H Blood Urea Nitrogen 93 H Creatinine 7.84 H Est Glomerular Filtrat Rate mL/min Glucose Level 130 Calcium Level 9.4 Phosphorus Level 2.8 Magnesium Level 2.2 Total Bilirubin 0.1 L Direct Bilirubin 0.00 Indirect Bilirubin 0.1 Aspartate Amino Transf (AST/SGOT) 50 H Alanine Aminotransferase (ALT/SGPT) 24 Alkaline Phosphatase 299 H Total Protein 6.2 Albumin 3.5 Globulin 2.70 Albumin/Globulin Ratio 1.29 Subjective 24 Hr Interval Summary Free Text/Dictation he is somewhat alert now, daughter at bedside, says he goes in and out. hd in progress he has leukocytosis without fever or physical findings, urine culture ordered, no hematuria now. no aspiration on ba swallow, on mech soft diet, tho not eating much. no cough, comfortable flat lungs clear, abd soft, no rash or skin infection seen he is certainly getting worse and prognosis does not appear good, await urine c and s preliminary tomorrow Constitutional: disoriented Exam/Review of Systems Vital Signs Vitals Vital Signs Date Temp Pulse Resp B/P (MAP) Pulse Ox O2 O2 Flow FiO2 Time Delivery Rate 06/19/18 98.4 87 18 137/73 95 Nasal 15:38 (94) Cannula 06/19/18 3.0 07:55 06/16/18 28 13:46 Intake and Output 06/18/18 06/18/18 06/19/18 1515:00 23:00 07:00 IntakeIntake Total 250 ml BalanceBalance 250 ml Medications Medications Current Medications Acetaminophen (Tylenol Tab) 500 mg Q4H PRN PO MILD PAIN(1-3)OR ELEVATED TEMP Last administered on 06/09/18 15:06; Admin Dose 500 MG; Start 06/06/18 at 11:00 Allopurinol (Zyloprim) 300 mg DAILY PO Last administered on 06/19/18 09:18; Ad min Dose 300 MG; Start 06/07/18 at 09:00 Aspirin (Aspirin) 81 mg DAILY PO Last administered on 06/19/18 09:18; Admin Dose 81 MG; Start 06/06/18 at 11:00 Atorvastatin Calcium (Lipitor) 20 mg QHS PO Last administered on 06/18/18 20:58; Admin Dose 20 MG; Start 06/06/18 at 21:00 Calcium Carbonate (Oyster Shell Calcium) 0.5 gm BID PO Last administered on 06/19/18 09:18; Admin Dose 0.5 GM; Start 06/06/18 at 21:00 Clopidogrel Bisulfate (plaVIX) 75 mg DAILY PO Last administered on 06/19/18 09:17; Admin Dose 75 MG; Start 06/06/18 at 11:00 Isosorbide Mononitrate (Imdur) 120 mg DAILY PO Last administered on 06/18/18 08:21; Admin Dose 120 MG; Start 06/06/18 at 11:00 Metoprolol Tartrate (Lopressor) 25 mg BID PO Last administered on 06/18/18 20:58; Admin Dose 25 MG; Start 06/06/18 at 11:00 Tramadol HCl (Ultram) 50 mg Q6H PRN PO PAIN Last administered on 06/12/18 17:33; Admin Dose 50 MG; Start 06/06/18 at 11:00 IV Flush (NS 3 ml) 3 ml PER PROTOCOL IV ; Start 06/06/18 at 14:00 Lorazepam (Ativan) 0.5 mg Q8H PRN PO ANXIETY Last administered on 06/17/18 23:46; Admin Dose 0.5 MG; Start 06/06/18 at 14:00 Acetaminophen/ Hydrocodone Bitart ([place] (5/325)) 1 tab Q6H PRN PO PAIN LEVEL 4-6 Last administered on 06/18/18 14:32; Admin Dose 1 TAB; Start 06/06/18 at 14:00 Famotidine (Pepcid) 20 mg Q24H PO Last administered on 06/18/18 20:57; Admin Dose 20 MG; Start 06/06/18 at 21:00 Digoxin (Digoxin) 0.0625 mg DAILY@1300 PO Last administered on 06/18/18 13:39; Admin Dose 0.0625 MG; Start 06/07/18 at 13:00 Furosemide (Lasix) 40 mg DAILY PO Last administered on 06/18/18 08:22; Admin Dose 40 MG; Start 06/07/18 at 09:00 Celecoxib (Celebrex) 100 mg BID PO Last administered on 06/19/18 09:17; Admin Dose 100 MG; Start 06/06/18 at 14:00 Epoetin Calos (Epogen (Esrd)) 10,000 units MoWeFr@17 SC Last administered on 06/17/18 21:17; Admin Dose 10,000 UNITS; Start 06/07/18 at 17:00 Multivit/Ca Carb/ B Cmplx/FA/Prenat (Fany-Jose Luis) 1 tab DAILY PO Last administered on 06/19/18 09:17; Admin Dose 1 TAB; Start 06/08/18 at 09:00 Morphine Sulfate (morphine) 0.5 mg Q4 PRN IV SEVERE PAIN LEVEL 7-10 Last administered on 06/18/18 02:51; Admin Dose 0.5 MG; Start 06/08/18 at 22:30 Heparin Sodium (Porcine) (Heparin (1000 Units/ml)) 2,800 unit PRN PRN CATHETER DIALYSIS Last administered on 06/17/18 19:11; Admin Dose 6,100 UNIT; Start 06/09/18 at 16:30 Lidocaine (Lidoderm) 1 patch DAILY TD Last administered on 06/19/18 09:20; Admin Dose 1 PATCH; Start 06/11/18 at 11:00 Metoclopramide HCl (Reglan) 5 mg AC MEALS PO Last administered on 06/18/18 12:48; Admin Dose 5 MG; Start 06/11/18 at 11:30; Status Hold Ondansetron HCl (Zofran Inj) 4 mg Q6H PRN IV NAUSEA AND/OR VOMITING Last ad ministered on 06/12/18 15:15; Admin Dose 4 MG; Start 06/12/18 at 15:30 Lisinopril (Zestril) 2.5 mg QHS PO Last administered on 06/18/18 20:57; Admin Dose 2.5 MG; Start 06/13/18 at 21:00 Lactulose (Enulose) 20 gm DAILY PRN PO CONSTIPATION Last administered on 06/19/18 06:09; Admin Dose 20 GM; Start 06/18/18 at 08:00 Docusate Sodium (Colace) 100 mg Q12H PO Last administered on 06/19/18 09:17; Admin Dose 100 MG; Start 06/19/18 at 07:00 Tamsulosin HCl (Flomax) 0.4 mg HS PO ; Start 06/19/18 at 21:00 Heparin Sodium (Porcine) (Heparin (1000 Units/ml)) 6,100 unit AFTER DIALYSIS CATHETER ; Start 06/19/18 at 16:00 MELLO SAUER MD Jun 19, 2018 15:52
[2018-06-19] MEDS: morphine 4 MG/ML VIAL IV PRN (16:29)
[2018-06-19] MEDS: HEPARIN 1000 UNITS/ML 10 ML INJ CATHETER SCH (18:35)
[2018-06-19] MEDS: DIGOXIN 0.125 MG TAB PO SCH (19:04)
[2018-06-19] MEDS: EPOETIN 10000 UNITS/1 ML INJ (ESRD) SC SCH (19:04)
[2018-06-19] MEDS: LISINOPRIL 5 MG TAB PO SCH (21:54)
[2018-06-19] MEDS: FAMOTIDINE 20 MG TAB PO SCH (21:55)
[2018-06-19] MEDS: ATORVASTATIN 20 MG TAB PO SCH (21:55)
[2018-06-19] MEDS: TAMSULOSIN (SR) 0.4 MG CAP PO SCH (21:56)
[2018-06-20] VITALS (10 sets, daily range): BP systolic 108–150; BP diastolic 54–70; PULSE 78–88; RESP 18–20
[2018-06-20] MEDS: LACTULOSE 30ML CUP PO PRN (05:42)
[2018-06-20] MEDS: DOCUSATE SODIUM 100 MG CAP PO SCH ×2 (05:45→09:55)
[2018-06-20] MEDS: ISOSORBIDE MONONITRATE(SR)60 MG TAB PO SCH (09:00)
[2018-06-20] MEDS: FUROSEMIDE 40 MG TAB PO SCH (09:00)
[2018-06-20] MEDS: METOPROLOL 25 MG TAB PO SCH ×2 (09:00→21:00)
--- NOTE | 2018-06-20 09:12 | CONS ---
Date/Time of Note Date/Time of Note DATE: 06/20/18 TIME: 09:10 Assessment/Plan Assessment/Plan Assessment/Plan 1. End-stage renal disease on maintenance hemodialysis. He is due for hemodialysis tomorrow , and it has been ordered. 2. Altered mental status with some episodes of confusion. He is more responsive today. I have discontinued some of his medications including primidone and baclofen. 3. Leukocytosis , etiology not clear , afebrile . 4. Thrombosed left upper arm AV fistula. He now has a right femoral [place] catheter for dialysis. 5. Anemia of chronic kidney disease 6. Urinary retention with Llamas catheter in place 7. Dysphasia . He did not show aspiration on the barium swallow. Result Diagram: 06/20/1852406/20/18524 Results 24hrs Laboratory Tests Test 06/20/18 05:25 White Blood Count 20.9 H Red Blood Count 3.29 L Hemoglobin 9.5 L Hematocrit 29.4 L Mean Corpuscular Volume 89.4 Mean Corpuscular Hemoglobin 28.9 L Mean Corpuscular Hemoglobin Concent 32.3 Red Cell Distribution Width 14.3 Platelet Count 273 Mean Platelet Volume 10.4 Immature Granulocytes % 1.700 H Neutrophils % 86.1 H Lymphocytes % 2.1 L Monocytes % 8.5 Eosinophils % 1.2 Basophils % 0.4 Nucleated Red Blood Cells % 0.1 H Immature Granulocytes # 0.360 H Neutrophils # 18.0 H Lymphocytes # 0.4 L Monocytes # 1.8 H Eosinophils # 0.3 Basophils # 0.1 Nucleated Red Blood Cells # 0.0 Sodium Level 132 L Potassium Level 4.9 Chloride Level 92 L Carbon Dioxide Level 27 Anion Gap 13 Blood Urea Nitrogen 60 #H Creatinine 5.13 #H Est Glomerular Filtrat Rate mL/min Glucose Level 106 Calcium Level 9.0 Consultation Date/Type/Reason Admit Date/Time Jun 06, 2018 at 08:52 Initial Consult Date 06/08/18 Requesting Provider: RUTH VAZQUEZ MD 24 HR Interval Summary Free Text/Dictation Will is more awake today. His is in the room with him. He is responding and is conversant. He had hemodialysis yesterday. Constitutional: no complaints, improved Exam/Review of Systems Vital Signs Vitals Vital Signs Date Temp Pulse Resp B/P (MAP) Pulse Ox O2 O2 Flow FiO2 Time Delivery Rate 06/20/18 81 08:26 06/20/18 98.0 20 108/59 96 Nasal 08:06 (75) Cannula 06/20/18 3.0 02:45 06/16/18 28 13:46 Intake and Output 06/19/18 06/19/18 06/20/18 1515:00 23:00 07:00 IntakeIntake Total 350 ml 300 ml 500 ml OutputOutput Total 250 ml 2600 ml BalanceBalance 100 ml -2300 ml 500 ml Exam Constitutional: alert, frail Respiratory: clear to auscultation, normal air movement Cardiovascular: regular rate and rhythm Gastrointestinal: soft, non-tender Musculoskeletal: nl extremities to inspection Medications Medications Current Medications Acetaminophen (Tylenol Tab) 500 mg Q4H PRN PO MILD PAIN(1-3)OR ELEVATED TEMP Last administered on 06/09/18at 15:06; Admin Dose 500 MG; Start 06/06/18 at 11:00 Allopurinol (Zyloprim) 300 mg DAILY PO Last administered on 06/19/18 09:18; Admin Dose 300 MG; Start 06/07/18 at 09:00 Aspirin (Aspirin) 81 mg DAILY PO Last administered on 06/19/18 09:18; Admin Dose 81 MG; Start 06/06/18 at 11:00 Atorvastatin Calcium (Lipitor) 20 mg QHS PO Last administered on 06/19/18 21:55; Admin Dose 20 MG; Start 06/06/18 at 21:00 Calcium Carbonate (Oyster Shell Calcium) 0.5 gm BID PO Last administered on 06/19/18 21:54; Admin Dose 0.5 GM; Start 06/06/18 at 21:00 Clopidogrel Bisulfate (plaVIX) 75 mg DAILY PO Last administered on 06/19/18 09:17; Admin Dose 75 MG; Start 06/06/18 at 11:00 Isosorbide Mononitrate (Imdur) 120 mg DAILY PO Last administered on 06/18/18 08:21; Admin Dose 120 MG; Start 06/06/18 at 11:00 Metoprolol Tartrate (Lopressor) 25 mg BID PO Last administered on 06/19/18 21:53; Admin Dose 25 MG; Start 06/06/18 at 11:00 Tramadol HCl (Ultram) 50 mg Q6H PRN PO PAIN Last administered on 06/12/18 17:33; Admin Dose 50 MG; Start 06/06/18 at 11:00 IV Flush (NS 3 ml) 3 ml PER PROTOCOL IV ; Start 06/06/18 at 14:00 Lorazepam (Ativan) 0.5 mg Q8H PRN PO ANXIETY Last administered on 06/17/18 23:46; Admin Dose 0.5 MG; Start 06/06/18 at 14:00 Acetaminophen/ Hydrocodone Bitart ([place] (5/325)) 1 tab Q6H PRN PO PAIN LEVEL 4-6 Last administered on 06/18/18 14:32; Admin Dose 1 TAB; Start 06/06/18 at 14:00 Famotidine (Pepcid) 20 mg Q24H PO Last administered on 06/19/18 21:55; Admin Dose 20 MG; Start 06/06/18 at 21:00 Digoxin (Digoxin) 0.0625 mg DAILY@1300 PO Last administered on 06/19/18 19:04; Admin Dose 0.0625 MG; Start 06/07/18 at 13:00 Furosemide (Lasix) 40 mg DAILY PO Last administered on 06/18/18 08:22; Admin Dose 40 MG; Start 06/07/18 at 09:00 Celecoxib (Celebrex) 100 mg BID PO Last administered on 06/19/18 21:55; Admin Dose 100 MG; Start 06/06/18 at 14:00 Epoetin Calos (Epogen (Esrd)) 10,000 units MoWeFr@17 SC Last administered on 06/19/18 19:04; Admin Dose 10,000 UNITS; Start 06/07/18 at 17:00 Multivit/Ca Carb/ B Cmplx/FA/Prenat (Fany-Jose Luis) 1 tab DAILY PO Last administered on 06/19/18 09:17; Admin Dose 1 TAB; Start 06/08/18 at 09:00 Morphine Sulfate (morphine) 0.5 mg Q4 PRN IV SEVERE PAIN LEVEL 7-10 Last administered on 06/19/18 16:29; Admin Dose 0.5 MG; Start 06/08/18 at 22:30 Heparin Sodium (Porcine) (Heparin (1000 Units/ml)) 2,800 unit PRN PRN CATHETER DIALYSIS Last administered on 06/17/18 19:11; Admin Dose 6,100 UNIT; Start 06/09/18 at 16:30 Lidocaine (Lidoderm) 1 patch DAILY TD Last administered on 06/19/18 09:20; Admin Dose 1 PATCH; Start 06/11/18 at 11:00 Metoclopramide HCl (Reglan) 5 mg AC MEALS PO Last administered on 06/18/18 12:48; Admin Dose 5 MG; Start 06/11/18 at 11:30; Status Hold Ondansetron HCl (Zofran Inj) 4 mg Q6H PRN IV NAUSEA AND/OR VOMITING Last administered on 06/12/18 15:15; Admin Dose 4 MG; Start 06/12/18 at 15:30 Lisinopril (Zestril) 2.5 mg QHS PO Last administered on 06/19/18 21:54; Admin Dose 2.5 MG; Start 06/13/18 at 21:00 Lactulose (Enulose) 20 gm DAILY PRN PO CONSTIPATION Last administered on 06/20/18 05:42; Admin Dose 20 GM; Start 06/18/18 at 08:00 Docusate Sodium (Colace) 100 mg Q12H PO Last administered on 06/20/18 05:45; Admin Dose 100 MG; Start 06/19/18 at 07:00 Tamsulosin HCl (Flomax) 0.4 mg HS PO Last administered on 06/19/18 21:56; Admin Dose 0.4 MG; Start 06/19/18 at 21:00 Heparin Sodium (Porcine) (Heparin (1000 Units/ml)) 6,100 unit AFTER DIALYSIS CATHETER Last administered on 06/19/18 18:35; Admin Dose 6,100 UNIT; Start 06/19/18 at 16:00 DEMARCUS CHING MD Jun 20, 2018 09:12
[2018-06-20] MEDS: ONDANSETRON 4 MG INJ IV PRN (09:36)
[2018-06-20] MEDS: LIDOCAINE 5% PATCH TD SCH (09:54)
[2018-06-20] MEDS: ALLOPURINOL 300 MG TAB PO SCH (09:55)
[2018-06-20] MEDS: CELECOXIB 100 MG CAP PO SCH ×2 (09:55→22:06)
[2018-06-20] MEDS: CLOPIDOGREL 75 MG TAB PO SCH (09:55)
[2018-06-20] MEDS: MULTIVIT/CA CARB/B CMPLX/FA TAB PO SCH (09:55)
[2018-06-20] MEDS: CALCIUM CARBONATE 1.25 GM TAB PO SCH ×2 (09:55→22:06)
[2018-06-20] MEDS: ASPIRIN 81 MG TAB PO SCH (09:55)
[2018-06-20] MEDS: DIGOXIN 0.125 MG TAB PO SCH (13:53)
--- NOTE | 2018-06-20 20:05 | CONS ---
Date/Time of Note Date/Time of Note DATE: 06/20/18 TIME: 19:58 Consult Date/Type/Reason Admit Date/Time Jun 06, 2018 at 08:52 Initial Consult Date 06/08/18 Type of Consultation: Urology Reason for Consultation Gross hematuria Requesting Provider: RUTH VAZQUEZ MD Subjective Patient appears to be comfortable. Objective Vital Signs Date Temp Pulse Resp B/P (MAP) Pulse Ox O2 O2 Flow FiO2 Time Delivery Rate 06/20/18 98.5 88 20 109/54 96 19:16 (72) 06/20/18 Nasal 15:20 Cannula 06/20/18 3.0 11:21 06/16/18 28 13:46 Intake and Output 06/19/18 06/19/18 06/20/18 1414:59 22:59 06:59 IntakeIntake Total 350 ml 300 ml 500 ml OutputOutput Total 250 ml 2600 ml BalanceBalance 100 ml -2300 ml 500 ml Exam Abdomen is soft. Pelvic ultrasound was done today and the prevoid volume was:87ml. The post void volume was:14ml The bladder is partially distended. Bladder wall is mildly thickened with mildly trabeculated appearance. There is 1.7 x 1.7 cm soft tissue structure in the dependent portion of the urinary bladder without internal vascular flow, connected to the bladder base with a thin band. Prostate measures 2.9 x 2.4 x 3.9 cm (14.4 ml). Results/Medications Result Diagram: 06/20/18 0525 06/20/18 0525 Results 24 hrs Laboratory Tests Test 06/20/18 05:25 White Blood Count 20.9 H Red Blood Count 3.29 L Hemoglobin 9.5 L Hematocrit 29.4 L Mean Corpuscular Volume 89.4 Mean Corpuscular Hemoglobin 28.9 L Mean Corpuscular Hemoglobin Concent 32.3 Red Cell Distribution Width 14.3 Platelet Count 273 Mean Platelet Volume 10.4 Immature Granulocytes % 1.700 H Neutrophils % 86.1 H Lymphocytes % 2.1 L Monocytes % 8.5 Eosinophils % 1.2 Basophils % 0.4 Nucleated Red Blood Cells % 0.1 H Immature Granulocytes # 0.360 H Neutrophils # 18.0 H Lymphocytes # 0.4 L Monocytes # 1.8 H Eosinophils # 0.3 Basophils # 0.1 Nucleated Red Blood Cells # 0.0 Sodium Level 132 L Potassium Level 4.9 Chloride Level 92 L Carbon Dioxide Level 27 Anion Gap 13 Blood Urea Nitrogen 60 #H Creatinine 5.13 #H Est Glomerular Filtrat Rate mL/min Glucose Level 106 Calcium Level 9.0 Medications Current Medications Acetaminophen (Tylenol Tab) 500 mg Q4H PRN PO MILD PAIN(1-3)OR ELEVATED TEMP Last administered on 06/09/18 15:06; Admin Dose 500 MG; Start 06/06/18 at 11:00 Allopurinol (Zyloprim) 300 mg DAILY PO Last administered on 06/20/18 09:55; Admin Dose 300 MG; Start 06/07/18 at 09:00 Aspirin (Aspirin) 81 mg DAILY PO Last administered on 06/20/18 09:55; Admin Dose 81 MG; Start 06/06/18 at 11:00 Atorvastatin Calcium (Lipitor) 20 mg QHS PO Last administered on 06/19/18 21:55; Admin Dose 20 MG; Start 06/06/18 at 21:00 Calcium Carbonate (Oyster Shell Calcium) 0.5 gm BID PO Last administered on 06/20/18 09:55; Admin Dose 0.5 GM; Start 06/06/18 at 21:00 Clopidogrel Bisulfate (plaVIX) 75 mg DAILY PO Last administered on 06/20/18 09:55; Admin Dose 75 MG; Start 06/06/18 at 11:00 Isosorbide Mononitrate (Imdur) 120 mg DAILY PO Last administered on 06/18/18 08:21; Admin Dose 120 MG; Start 06/06/18 at 11:00 Metoprolol Tartrate (Lopressor) 25 mg BID PO Last administered on 06/19/18 21:53; Admin Dose 25 MG; Start 06/06/18 at 11:00 Tramadol HCl (Ultram) 50 mg Q6H PRN PO PAIN Last administered on 06/12/18 17:33; Admin Dose 50 MG; Start 06/06/18 at 11:00 IV Flush (NS 3 ml) 3 ml PER PROTOCOL IV ; Start 06/06/18 at 14:00 Lorazepam (Ativan) 0.5 mg Q8H PRN PO ANXIETY Last administered on 06/17/18 23:46; Admin Dose 0.5 MG; Start 06/06/18 at 14:00 Acetaminophen/ Hydrocodone Bitart ([place] (5/325)) 1 tab Q6H PRN PO PAIN LEVEL 4-6 Last administered on 06/18/18 14:32; Admin Dose 1 TAB; Start 06/06/18 at 14:00 Famotidine (Pepcid) 20 mg Q24H PO Last administered on 06/19/18 21:55; Admin Dose 20 MG; Start 06/06/18 at 21:00 Digoxin (Digoxin) 0.0625 mg DAILY@1300 PO Last administered on 06/20/18 13:53; Admin Dose 0.0625 MG; Start 06/07/18 at 13:00 Furosemide (Lasix) 40 mg DAILY PO Last administered on 06/18/18 08:22; Admin Dose 40 MG; Start 06/07/18 at 09:00 Celecoxib (Celebrex) 100 mg BID PO Last administered on 06/20/18 09:55; Admin Dose 100 MG; Start 06/06/18 at 14:00 Epoetin Calos (Epogen (Esrd)) 10,000 units MoWeFr@17 SC Last administered on 06/19/18 19:04; Admin Dose 10,000 UNITS; Start 06/07/18 at 17:00 Multivit/Ca Carb/ B Cmplx/FA/Prenat ([place]any-[place] Luis) 1 tab DAILY PO Last administered on 06/20/18 09:55; Admin Dose 1 TAB; Start 06/08/18 at 09:00 Morphine Sulfate (morphine) 0.5 mg Q4 PRN IV SEVERE PAIN LEVEL 7-10 Last administered on 06/19/18 16:29; Admin Dose 0.5 MG; Start 06/08/18 at 22:30 Heparin Sodium (Porcine) (Heparin (1000 Units/ml)) 2,800 unit PRN PRN CATHETER DIALYSIS Last administered on 06/17/18 19:11; Admin Dose 6,100 UNIT; Start 06/09/18 at 16:30 Lidocaine (Lidoderm) 1 patch DAILY TD Last administered on 06/20/18 09:54; Admin Dose 1 PATCH; Start 06/11/18 at 11:00 Metoclopramide HCl (Reglan) 5 mg AC MEALS PO Last administered on 06/18/18 12:48; Admin Dose 5 MG; Start 06/11/18 at 11:30; Status Hold Ondansetron HCl (Zofran Inj) 4 mg Q6H PRN IV NAUSEA AND/OR VOMITING Last administered on 06/20/18 09:36; Admin Dose 4 MG; Start 06/12/18 at 15:30 Lisinopril (Zestril) 2.5 mg QHS PO Last administered on 06/19/18 21:54; Admin Dose 2.5 MG; Start 06/13/18 at 21:00 Lactulose (Enulose) 20 gm DAILY PRN PO CONSTIPATION Last administered on 06/20/18 05:42; Admin Dose 20 GM; Start 06/18/18 at 08:00 Docusate Sodium (Colace) 100 mg Q12H PO Last administered on 06/20/18 09:55; Admin Dose 100 MG; Start 06/19/18 at 07:00 Tamsulosin HCl (Flomax) 0.4 mg HS PO Last administered on 06/19/18 21:56; Admin Dose 0.4 MG; Start 06/19/18 at 21:00 Heparin Sodium (Porcine) (Heparin (1000 Units/ml)) 6,100 unit AFTER DIALYSIS CATHETER Last administered on 06/19/18 18:35; Admin Dose 6,100 UNIT; Start 06/19/18 at 16:00 Assessment/Plan Chief Complaint/Hosp Course 88-year-old with a history of end-stage renal disease on hemodialysis had gross hematuria. He was on bladder irrigation until the urine return was clear then the irrigation was stopped and the Llamas catheter was removed and the patient was able to urinate and the postvoid residual was not high. He did undergo p elvic ultrasound today and the prevoid volume was:87ml. The post void volume was:14ml The bladder was partially distended. Bladder wall is mildly thickened with mildly trabeculated appearance. There is 1.7 x 1.7 cm soft tissue structure in the dependent portion of the urinary bladder without internal vascular flow, connected to the bladder base with a thin band. Prostate measures 2.9 x 2.4 x 3.9 cm (14.4 ml). With this finding of a mass in the bladder one has to rule out bladder tumor. He will need to undergo cystoscopy and if there is a tumor resect it. I will have to discuss that with his and the materials planning analyst and do it while he still in the hospital. HAI URIBE MD Jun 20, 2018 20:05
[2018-06-20] MEDS: TAMSULOSIN (SR) 0.4 MG CAP PO SCH (22:06)
[2018-06-20] MEDS: FAMOTIDINE 20 MG TAB PO SCH (22:06)
[2018-06-20] MEDS: LISINOPRIL 5 MG TAB PO SCH (22:07)
[2018-06-20] MEDS: ATORVASTATIN 20 MG TAB PO SCH (22:08)
[2018-06-21] VITALS (28 sets, daily range): BP systolic 92–128; BP diastolic 44–59; PULSE 69–103; RESP 17–20
[2018-06-21] MEDS: HYDROCODONE/APAP (5/325) TAB PO PRN (03:04)
[2018-06-21] MEDS: DOCUSATE SODIUM 100 MG CAP PO SCH ×2 (06:06→21:16)
[2018-06-21] MEDS: CLOPIDOGREL 75 MG TAB PO SCH (08:51)
[2018-06-21] MEDS: ALLOPURINOL 300 MG TAB PO SCH (08:51)
[2018-06-21] MEDS: MULTIVIT/CA CARB/B CMPLX/FA TAB PO SCH (08:51)
[2018-06-21] MEDS: CELECOXIB 100 MG CAP PO SCH ×2 (08:52→21:17)
[2018-06-21] MEDS: ASPIRIN 81 MG TAB PO SCH (08:52)
[2018-06-21] MEDS: CALCIUM CARBONATE 1.25 GM TAB PO SCH ×2 (08:52→21:16)
[2018-06-21] MEDS: FUROSEMIDE 40 MG TAB PO SCH (08:53)
[2018-06-21] MEDS: METOPROLOL 25 MG TAB PO SCH ×2 (08:53→21:00)
[2018-06-21] MEDS: ISOSORBIDE MONONITRATE(SR)60 MG TAB PO SCH (08:54)
[2018-06-21] MEDS: LIDOCAINE 5% PATCH TD SCH (08:58)
[2018-06-21] MEDS: ALBUMIN HUMAN 25% 100 ML IV PRN (11:00)
--- NOTE | 2018-06-21 11:09 | CONS ---
Date/Time of Note Date/Time of Note DATE: 06/21/18 TIME: 10:59 Assessment/Plan Assessment/Plan Hospital Course 1. End-stage renal disease on maintenance hemodialysis. He is having hemodialysis treatment now. His dialysis should be in 2 days on Sunday. This will get him back to his usual Sunday schedule 2. Altered mental status with some episodes of confusion. He is more responsive today. I have discontinued some of his medications including primidone and baclofen. 3. Leukocytosis , etiology not clear , afebrile . White blood count is lower than yesterday. 4. Thrombosed left upper arm AV fistula. He now has a right femoral Ministerio catheter for dialysis. 5. Anemia of chronic kidney disease 6. Urinary retention with Llamas catheter out now . He does have a bladder mass on pelvic ultrasound. Urology is evaluating this mass. 7. Dysphasia . He did not show aspiration on the barium swallow. Result Diagram: 06/21/1819 06/21/1819 Results 24hrs Laboratory Tests Test 06/21/18 05:19 White Blood Count 17.5 H Red Blood Count 3.00 L Hemoglobin 8.8 L Hematocrit 26.9 L Mean Corpuscular Volume 89.7 Mean Corpuscular Hemoglobin 29.3 Mean Corpuscular Hemoglobin Concent 32.7 Red Cell Distribution Width 14.3 Platelet Count 247 Mean Platelet Volume 10.5 H Immature Granulocytes % 1.900 H Neutrophils % 82.3 H Lymphocytes % 3.1 L Monocytes % 9.9 Eosinophils % 2.3 Basophils % 0.5 Nucleated Red Blood Cells % 0.1 H Immature Granulocytes # 0.330 H Neutrophils # 14.4 H Lymphocytes # 0.5 L Monocytes # 1.7 H Eosinophils # 0.4 Basophils # 0.1 Nucleated Red Blood Cells # 0.0 Sodium Level 131 L Potassium Level 4.9 Chloride Level 88 L Carbon Dioxide Level 27 Anion Gap 16 H Blood Urea Nitrogen 79 H Creatinine 6.92 H Est Glomerular Filtrat Rate mL/min Glucose Level 100 Calcium Level 8.9 Total Bilirubin 0.1 L Direct Bilirubin 0.00 Indirect Bilirubin 0.1 Aspartate Amino Transf (AST/SGOT) 45 Alanine Aminotransferase (ALT/SGPT) 25 Alkaline Phosphatase 254 H Total Protein 5.7 L Albumin 3.1 L Globulin 2.60 Albumin/Globulin Ratio 1.19 Consultation Date/Type/Reason Admit Date/Time Jun 06, 2018 at 08:52 Initial Consult Date 06/08/18 Requesting Provider: RUTH VAZQUEZ MD 24 HR Interval Summary Free Text/Dictation This patient is being seen in nephrologic follow-up. He is currently having a hemodialysis treatment. He is lethargic but does arouse to verbal stimuli and is conversant. Exam/Review of Systems Vital Signs Vitals Vital Signs Date Temp Pulse Resp B/P (MAP) Pulse Ox O2 O2 Flow FiO2 Time Delivery Rate 06/21/18 85 08:25 06/21/18 98.0 19 99/50 (66) 97 Nasal 07:45 Cannula 06/21/18 3.0 04:51 Intake and Output 06/20/18 06/20/18 06/21/18 1515:00 23:00 07:00 IntakeIntake Total 400 ml 600 ml BalanceBalance 400 ml 600 ml Exam Constitutional: frail Respiratory: clear to auscultation Cardiovascular: regular rate and rhythm Gastrointestinal: soft, non-tender Musculoskeletal: nl extremities to inspection Medications Medications Current Medications Acetaminophen (Tylenol Tab) 500 mg Q4H PRN PO MILD PAIN(1-3)OR ELEVATED TEMP Last administered on 06/09/18at 15:06; Admin Dose 500 MG; Start 06/06/18 at 11:00 Allopurinol (Zyloprim) 300 mg DAILY PO Last administered on 06/21/18 08:51; Admin Dose 300 MG; Start 06/07/18 at 09:00 Aspirin (Aspirin) 81 mg DAILY PO Last administered on 06/21/18 08:52; Admin Dose 81 MG; Start 06/06/18 at 11:00 Atorvastatin Calcium (Lipitor) 20 mg QHS PO Last administered on 06/20/18 22:08; Admin Dose 20 MG; Start 06/06/18 at 21:00 Calcium Carbonate (Oyster Shell Calcium) 0.5 gm BID PO Last administered on 06/21/18 08:52; Admin Dose 0.5 GM; Start 06/06/18 at 21:00 Clopidogrel Bisulfate (plaVIX) 75 mg DAILY PO Last administered on 06/21/18 08:51; Admin Dose 75 MG; Start 06/06/18 at 11:00 Isosorbide Mononitrate (Imdur) 120 mg DAILY PO Last administered on 06/21/18 08:54; Admin Dose 120 MG; Start 06/06/18 at 11:00 Metoprolol Tartrate (Lopressor) 25 mg BID PO Last administered on 06/19/18 21:53; Admin Dose 25 MG; Start 06/06/18 at 11:00 Tramadol HCl (Ultram) 50 mg Q6H PRN PO PAIN Last administered on 06/12/18 17:33; Admin Dose 50 MG; Start 06/06/18 at 11:00 IV Flush (NS 3 ml) 3 ml PER PROTOCOL IV ; Start 06/06/18 at 14:00 Lorazepam (Ativan) 0.5 mg Q8H PRN PO ANXIETY Last administered on 06/17/18 23:46; Admin Dose 0.5 MG; Start 06/06/18 at 14:00 Acetaminophen/ Hydrocodone Bitart ([place] (5/325)) 1 tab Q6H PRN PO PAIN LEVEL 4-6 Last administered on 06/21/18 03:04; Admin Dose 1 TAB; Start 06/06/18 at 14:00 Famotidine (Pepcid) 20 mg Q24H PO Last administered on 06/20/18 22:06; Admin Dose 20 MG; Start 06/06/18 at 21:00 Digoxin (Digoxin) 0.0625 mg DAILY@1300 PO Last administered on 06/20/18 13:53; Admin Dose 0.0625 MG; Start 06/07/18 at 13:00 Furosemide (Lasix) 40 mg DAILY PO Last administered on 06/21/18 08:53; Admin Dose 40 MG; Start 06/07/18 at 09:00 Celecoxib (Celebrex) 100 mg BID PO Last administered on 06/21/18 08:52; Admin Dose 100 MG; Start 06/06/18 at 14:00 Epoetin Calos (Epogen (Esrd)) 10,000 units MoWeFr@17 SC Last administered on 06/19/18 19:04; Admin Dose 10,000 UNITS; Start 06/07/18 at 17:00 Multivit/Ca Carb/ B Cmplx/FA/Prenat (Fany-Jose Luis) 1 tab DAILY PO Last administered on 06/21/18 08:51; Admin Dose 1 TAB; Start 06/08/18 at 09:00 Morphine Sulfate (morphine) 0.5 mg Q4 PRN IV SEVERE PAIN LEVEL 7-10 Last administered on 06/19/18 16:29; Admin Dose 0.5 MG; Start 06/08/18 at 22:30 Heparin Sodium (Porcine) (Heparin (1000 Units/ml)) 2,800 unit PRN PRN CATHETER DIALYSIS Last administered on 06/17/18 19:11; Admin Dose 6,100 UNIT; Start 06/09/18 at 16:30 Lidocaine (Lidoderm) 1 patch DAILY TD Last administered on 06/21/18 08:58; Admin Dose 1 PATCH; Start 06/11/18 at 11:00 Metoclopramide HCl (Reglan) 5 mg AC MEALS PO Last administered on 06/18/18 12:48; Admin Dose 5 MG; Start 06/11/18 at 11:30; Status Hold Ondansetron HCl (Zofran Inj) 4 mg Q6H PRN IV NAUSEA AND/OR VOMITING Last administered on 06/20/18 09:36; Admin Dose 4 MG; Start 06/12/18 at 15:30 Lisinopril (Zestril) 2.5 mg QHS PO Last administered on 06/20/18 22:07; Admin Dose 2.5 MG; Start 06/13/18 at 21:00 Lactulose (Enulose) 20 gm DAILY PRN PO CONSTIPATION Last administered on 06/20/18 05:42; Admin Dose 20 GM; Start 06/18/18 at 08:00 Docusate Sodium (Colace) 100 mg Q12H PO Last administered on 06/21/18 06:06; Admin Dose 100 MG; Start 06/19/18 at 07:00 Tamsulosin HCl (Flomax) 0.4 mg HS PO Last administered on 06/20/18 22:06; Admin Dose 0.4 MG; Start 06/19/18 at 21:00 Heparin Sodium (Porcine) (Heparin (1000 Units/ml)) 6,100 unit AFTER DIALYSIS CATHETER Last administered on 06/19/18 18:35; Admin Dose 6,100 UNIT; Start 06/19/18 at 16:00 Albumin Human 100 ml @ 100 mls/hr DURING DIALYSIS PRN IV BLOOD PRESSURE SUPPORT; Start 06/21/18 at 11:00 DEMARCUS CHING MD Jun 21, 2018 11:09
--- NOTE | 2018-06-21 13:04 | PN ---
Date/Time of Note Date/Time of Note DATE: 06/21/18 TIME: 13:01 Assessment/Plan VTE Prophylaxis Risk score (from Ns)>0 risk: 12 SCD applied (from Ns): Yes Pharmacological prophylaxis: NA/contraindicated Pharm contraindication: renal impairment Lines/Catheters IV Catheter Type (from Rust): Ministerio cath Urinary Cath still in place: No Assessment/Plan Result Diagram: 06/21/1819 06/21/18 0519 Results 24hrs Laboratory Tests Test 06/21/18 05:19 White Blood Count 17.5 H Red Blood Count 3.00 L Hemoglobin 8.8 L Hematocrit 26.9 L Mean Corpuscular Volume 89.7 Mean Corpuscular Hemoglobin 29.3 Mean Corpuscular Hemoglobin Concent 32.7 Red Cell Distribution Width 14.3 Platelet Count 247 Mean Platelet Volume 10.5 H Immature Granulocytes % 1.900 H Neutrophils % 82.3 H Lymphocytes % 3.1 L Monocytes % 9.9 Eosinophils % 2.3 Basophils % 0.5 Nucleated Red Blood Cells % 0.1 H Immature Granulocytes # 0.330 H Neutrophils # 14.4 H Lymphocytes # 0.5 L Monocytes # 1.7 H Eosinophils # 0.4 Basophils # 0.1 Nucleated Red Blood Cells # 0.0 Sodium Level 131 L Potassium Level 4.9 Chloride Level 88 L Carbon Dioxide Level 27 Anion Gap 16 H Blood Urea Nitrogen 79 H Creatinine 6.92 H Est Glomerular Filtrat Rate mL/min Glucose Level 100 Calcium Level 8.9 Total Bilirubin 0.1 L Direct Bilirubin 0.00 Indirect Bilirubin 0.1 Aspartate Amino Transf (AST/SGOT) 45 Alanine Aminotransferase (ALT/SGPT) 25 Alkaline Phosphatase 254 H Total Protein 5.7 L Albumin 3.1 L Globulin 2.60 Albumin/Globulin Ratio 1.19 Subjective 24 Hr Interval Summary Free Text/Dictation mentation is better. hd in progress, bp sl low. will attempt p.t. later today voiding ok without ctheter, mass in bladder on u.s., probably could tolerate cysto if wishes to proceed, will discuss with family lungs clear, abd soft, no edema labs as notes, wbc sl lowwer, urine c and s neg at 24 hrs Exam/Review of Systems Vital Signs Vitals Vital Signs Date Temp Pulse Resp B/P (MAP) Pulse Ox O2 O2 Flow FiO2 Time Delivery Rate 06/21/18 88 12:35 1/11/19 97.9 20 105/44 97 Nasal 11:56 (64) Cannula 06/21/18 3.0 11:14 Intake and Output 06/20/18 06/20/18 06/21/18 1515:00 23:00 07:00 IntakeIntake Total 400 ml 600 ml BalanceBalance 400 ml 600 ml Medications Medications Current Medications Acetaminophen (Tylenol Tab) 500 mg Q4H PRN PO MILD PAIN(1-3)OR ELEVATED TEMP Last administered on 06/09/18 15:06; Admin Dose 500 MG; Start 06/06/18 at 11:00 Allopurinol (Zyloprim) 300 mg DAILY PO Last administered on 06/21/18 08:51; Admin Dose 300 MG; Start 06/07/18 at 09:00 Aspirin (Aspirin) 81 mg DAILY PO Last administered on 06/21/18 08:52; Admin Dose 81 MG; Start 06/06/18 at 11:00 Atorvastatin Calcium (Lipitor) 20 mg QHS PO Last administered on 06/20/18 22:08; Admin Dose 20 MG; Start 06/06/18 at 21:00 Calcium Carbonate (Oyster Shell Calcium) 0.5 gm BID PO Last administered on 06/21/18 08:52; Admin Dose 0.5 GM; Start 06/06/18 at 21:00 Clopidogrel Bisulfate (plaVIX) 75 mg DAILY PO Last administered on 06/21/18 08:51; Admin Dose 75 MG; Start 06/06/18 at 11:00 Isosorbide Mononitrate (Imdur) 120 mg DAILY PO Last administered on 06/21/18 08:54; Admin Dose 120 MG; Start 06/06/18 at 11:00 Metoprolol Tartrate (Lopressor) 25 mg BID PO Last administered on 06/19/18 21:53; Admin Dose 25 MG; Start 06/06/18 at 11:00 Tramadol HCl (Ultram) 50 mg Q6H PRN PO PAIN Last administered on 06/12/18 17:33; Admin Dose 50 MG; Start 06/06/18 at 11:00 IV Flush (NS 3 ml) 3 ml PER PROTOCOL IV ; Start 06/06/18 at 14:00 Lorazepam (Ativan) 0.5 mg Q8H PRN PO ANXIETY Last administered on 06/17/18 23:46; Admin Dose 0.5 MG; Start 06/06/18 at 14:00 Acetaminophen/ Hydrocodone Bitart ([place] (5/325)) 1 tab Q6H PRN PO PAIN LEVEL 4-6 Last administered on 06/21/18 03:04; Admin Dose 1 TAB; Start 06/06/18 at 14:00 Famotidine (Pepcid) 20 mg Q24H PO Last administered on 06/20/18 22:06; Admin Dose 20 MG; Start 06/06/18 at 21:00 Digoxin (Digoxin) 0.0625 mg DAILY@1300 PO Last administered on 06/20/18 13:53; Admin Dose 0.0625 MG; Start 06/07/18 at 13:00 Furosemide (Lasix) 40 mg DAILY PO Last administered on 06/21/18 08:53; Admin Dose 40 MG; Start 06/07/18 at 09:00 Celecoxib (Celebrex) 100 mg BID PO Last administered on 06/21/18 08:52; Admin Dose 100 MG; Start 06/06/18 at 14:00 Epoetin Calos (Epogen (Esrd)) 10,000 units MoWeFr@17 SC Last administered on 06/19/18 19:04; Admin Dose 10,000 UNITS; Start 06/07/18 at 17:00 Multivit/Ca Carb/ B Cmplx/FA/Prenat (Fany-Jose Luis) 1 tab DAILY PO Last administ ered on 06/21/18 08:51; Admin Dose 1 TAB; Start 06/08/18 at 09:00 Morphine Sulfate (morphine) 0.5 mg Q4 PRN IV SEVERE PAIN LEVEL 7-10 Last administered on 06/19/18 16:29; Admin Dose 0.5 MG; Start 06/08/18 at 22:30 Heparin Sodium (Porcine) (Heparin (1000 Units/ml)) 2,800 unit PRN PRN CATHETER DIALYSIS Last administered on 06/17/18 19:11; Admin Dose 6,100 UNIT; Start 06/09/18 at 16:30 Lidocaine (Lidoderm) 1 patch DAILY TD Last administered on 06/21/18 08:58; Admin Dose 1 PATCH; Start 06/11/18 at 11:00 Metoclopramide HCl (Reglan) 5 mg AC MEALS PO Last administered on 06/18/18 12:48; Admin Dose 5 MG; Start 06/11/18 at 11:30; Status Hold Ondansetron HCl (Zofran Inj) 4 mg Q6H PRN IV NAUSEA AND/OR VOMITING Last administered on 06/20/18 09:36; Admin Dose 4 MG; Start 06/12/18 at 15:30 Lisinopril (Zestril) 2.5 mg QHS PO Last administered on 06/20/18 22:07; Admin Dose 2.5 MG; Start 06/13/18 at 21:00 Lactulose (Enulose) 20 gm DAILY PRN PO CONSTIPATION Last administered on 06/20/18 05:42; Admin Dose 20 GM; Start 06/18/18 at 08:00 Docusate Sodium (Colace) 100 mg Q12H PO Last administered on 06/21/18 06:06; Admin Dose 100 MG; Start 06/19/18 at 07:00 Tamsulosin HCl (Flomax) 0.4 mg HS PO Last administered on 06/20/18 22:06; Admin Dose 0.4 MG; Start 06/19/18 at 21:00 Heparin Sodium (Porcine) (Heparin (1000 Units/ml)) 6,100 unit AFTER DIALYSIS CATHETER Last administered on 06/19/18 18:35; Admin Dose 6,100 UNIT; Start 06/19/18 at 16:00 Albumin Human 100 ml @ 100 mls/hr DURING DIALYSIS PRN IV BLOOD PRESSURE SUPPORT Last administered on 06/21/18 11:00; Admin Dose 100 MLS/HR; Start 06/21/18 at 11:00 MELLO SAUER MD Jun 21, 2018 13:04
[2018-06-21] MEDS: HEPARIN 1000 UNITS/ML 10 ML INJ CATHETER SCH (13:18)
[2018-06-21] MEDS: DIGOXIN 0.125 MG TAB PO SCH (13:21)
[2018-06-21] MEDS: EPOETIN 10000 UNITS/1 ML INJ (ESRD) SC SCH (17:51)
--- NOTE | 2018-06-21 20:26 | CONS ---
Date/Time of Note Date/Time of Note DATE: 06/21/18 TIME: 20:23 Consult Date/Type/Reason Admit Date/Time Jun 06, 2018 at 08:52 Initial Consult Date 06/08/18 Type of Consultation: Urology Reason for Consultation Gross hematuria and bladder mass Requesting Provider: RUTH VAZQUEZ MD Subjective Patient is resting comfortably and when awakened he states he has back pain Objective Vital Signs Date Temp Pulse Resp B/P (MAP) Pulse Ox O2 O2 Flow FiO2 Time Delivery Rate 06/21/18 99.4 103 18 99/50 (66) 97 Nasal 19:46 Cannula 06/21/18 3.0 19:34 Intake and Output 06/20/18 06/20/18 06/21/18 1515:00 23:00 07:00 IntakeIntake Total 400 ml 600 ml BalanceBalance 400 ml 600 ml Exam The abdomen is soft and the bladder is not distended. Results/Medications Result Diagram: 06/21/1819 06/21/18 0519 Results 24 hrs Laboratory Tests Test 06/21/18 05:19 White Blood Count 17.5 H Red Blood Count 3.00 L Hemoglobin 8.8 L Hematocrit 26.9 L Mean Corpuscular Volume 89.7 Mean Corpuscular Hemoglobin 29.3 Mean Corpuscular Hemoglobin Concent 32.7 Red Cell Distribution Width 14.3 Platelet Count 247 Mean Platelet Volume 10.5 H Immature Granulocytes % 1.900 H Neutrophils % 82.3 H Lymphocytes % 3.1 L Monocytes % 9.9 Eosinophils % 2.3 Basophils % 0.5 Nucleated Red Blood Cells % 0.1 H Immature Granulocytes # 0.330 H Neutrophils # 14.4 H Lymphocytes # 0.5 L Monocytes # 1.7 H Eosinophils # 0.4 Basophils # 0.1 Nucleated Red Blood Cells # 0.0 Sodium Level 131 L Potassium Level 4.9 Chloride Level 88 L Carbon Dioxide Level 27 Anion Gap 16 H Blood Urea Nitrogen 79 H Creatinine 6.92 H Est Glomerular Filtrat Rate mL/min Glucose Level 100 Calcium Level 8.9 Total Bilirubin 0.1 L Direct Bilirubin 0.00 Indirect Bilirubin 0.1 Aspartate Amino Transf (AST/SGOT) 45 Alanine Aminotransferase (ALT/SGPT) 25 Alkaline Phosphatase 254 H Total Protein 5.7 L Albumin 3.1 L Globulin 2.60 Albumin/Globulin Ratio 1.19 Medications Current Medications Acetaminophen (Tylenol Tab) 500 mg Q4H PRN PO MILD PAIN(1-3)OR ELEVATED TEMP Last administered on 06/09/18 15:06; Admin Dose 500 MG; Start 06/06/18 at 11:00 Allopurinol (Zyloprim) 300 mg DAILY PO Last administered on 06/21/18 08:51; Admin Dose 300 MG; Start 06/07/18 at 09:00 Aspirin (Aspirin) 81 mg DAILY PO Last administered on 06/21/18 08:52; Admin Dose 81 MG; Start 06/06/18 at 11:00 Atorvastatin Calcium (Lipitor) 20 mg QHS PO Last administered on 06/20/18 22:08; Admin Dose 20 MG; Start 06/06/18 at 21:00 Calcium Carbonate (Oyster Shell Calcium) 0.5 gm BID PO Last administered on 06/21/18 08:52; Admin Dose 0.5 GM; Start 06/06/18 at 21:00 Clopidogrel Bisulfate (plaVIX) 75 mg DAILY PO Last administered on 06/21/18 08:51; Admin Dose 75 MG; Start 06/06/18 at 11:00 Isosorbide Mononitrate (Imdur) 120 mg DAILY PO Last administered on 06/21/18 08:54; Admin Dose 120 MG; Start 06/06/18 at 11:00 Metoprolol Tartrate (Lopressor) 25 mg BID PO Last administered on 06/19/18 21:53; Admin Dose 25 MG; Start 06/06/18 at 11:00 Tramadol HCl (Ultram) 50 mg Q6H PRN PO PAIN Last administered on 06/12/18 17:33; Admin Dose 50 MG; Start 06/06/18 at 11:00 IV Flush (NS 3 ml) 3 ml PER PROTOCOL IV ; Start 06/06/18 at 14:00 Lorazepam (Ativan) 0.5 mg Q8H PRN PO ANXIETY Last administered on 06/17/18 23:46; Admin Dose 0.5 MG; Start 06/06/18 at 14:00 Acetaminophen/ Hydrocodone Bitart ([place] (5/325)) 1 tab Q6H PRN PO PAIN LEVEL 4-6 Last administered on 06/21/18 03:04; Admin Dose 1 TAB; Start 06/06/18 at 14:00 Famotidine (Pepcid) 20 mg Q24H PO Last administered on 06/20/18 22:06; Admin Dose 20 MG; Start 06/06/18 at 21:00 Digoxin (Digoxin) 0.0625 mg DAILY@1300 PO Last administered on 06/21/18 13:21; Admin Dose 0.0625 MG; Start 06/07/18 at 13:00 Furosemide (Lasix) 40 mg DAILY PO Last administered on 06/21/18 08:53; Admin Dose 40 MG; Start 06/07/18 at 09:00 Celecoxib (Celebrex) 100 mg BID PO Last administered on 06/21/18 08:52; Admin Dose 100 MG; Start 06/06/18 at 14:00 Epoetin Calos (Epogen (Esrd)) 10,000 units MoWeFr@17 SC Last administered on 06/21/18 17:51; Admin Dose 10,000 UNITS; Start 06/07/18 at 17:00 Multivit/Ca Carb/ B Cmplx/FA/Prenat (Fany-Josel Uis) 1 tab DAILY PO Last administered on 06/21/18 08:51; Admin Dose 1 TAB; Start 06/08/18 at 09:00 Morphine Sulfate (morphine) 0.5 mg Q4 PRN IV SEVERE PAIN LEVEL 7-10 Last administered on 06/19/18 16:29; Admin Dose 0.5 MG; Start 06/08/18 at 22:30 Heparin Sodium (Porcine) (Heparin (1000 Units/ml)) 2,800 unit PRN PRN CATHETER DIALYSIS Last administered on 06/17/18 19:11; Admin Dose 6,100 UNIT; Start 06/09/18 at 16:30 Lidocaine (Lidoderm) 1 patch DAILY TD Last administered on 06/21/18 08:58; Admin Dose 1 PATCH; Start 06/11/18 at 11:00 Metoclopramide HCl (Reglan) 5 mg AC MEALS PO Last administered on 06/18/18 12:48; Admin Dose 5 MG; Start 06/11/18 at 11:30; Status Hold Ondansetron HCl (Zofran Inj) 4 mg Q6H PRN IV NAUSEA AND/OR VOMITING Last administered on 06/20/18 09:36; Admin Dose 4 MG; Start 06/12/18 at 15:30 Lisinopril (Zestril) 2.5 mg QHS PO Last administered on 06/20/18at 22:07; Admin Dose 2.5 MG; Start 06/13/18 at 21:00 Lactulose (Enulose) 20 gm DAILY PRN PO CONSTIPATION Last administered on 06/20/18at 05:42; Admin Dose 20 GM; Start 06/18/18 at 08:00 Docusate Sodium (Colace) 100 mg Q12H PO Last administered on 06/21/18at 06:06; Admin Dose 100 MG; Start 06/19/18 at 07:00 Tamsulosin HCl (Flomax) 0.4 mg HS PO Last administered on 06/20/18at 22:06; Admin Dose 0.4 MG; Start 06/19/18 at 21:00 Heparin Sodium (Porcine) (Heparin (1000 Units/ml)) 6,100 unit AFTER DIALYSIS CATHETER Last administered on 06/21/18at 13:18; Admin Dose 6,100 UNIT; Start 06/19/18 at 16:00 Albumin Human 100 ml @ 100 mls/hr DURING DIALYSIS PRN IV BLOOD PRESSURE SUPPORT Last administered on 06/21/18at 11:00; Admin Dose 100 MLS/HR; Start 06/21/18 at 11:00 Assessment/Plan Chief Complaint/Hosp Course 88-year-old with a history of end-stage renal disease on hemodialysis had gross hematuria. He was on bladder irrigation until the urine return was clear then the irrigation was stopped and the Llamas catheter was removed and the patient was able to urinate and the postvoid residual was not high. He did undergo p elvic ultrasound today and the prevoid volume was:87ml. The post void volume w as:14ml The bladder was partially distended. Bladder wall is mildly thickened with mildly trabeculated appearance. There is 1.7 x 1.7 cm soft tissue structure in the dependent portion of the urinary bladder without internal vascular flow, connected to the bladder base with a thin band. Prostate measures 2.9 x 2.4 x 3.9 cm (14.4 ml). With this finding of a mass in the bladder one has to rule out bladder tumor. I will try to schedule him for a cystoscopy and possible resection of bladder tumor this coming week. I will discuss that with his and see if she is agreeable to proceed HAI URIBE MD Jun 21, 2018 20:26
[2018-06-21] MEDS: LISINOPRIL 5 MG TAB PO SCH (21:00)
[2018-06-21] MEDS: TAMSULOSIN (SR) 0.4 MG CAP PO SCH (21:16)
[2018-06-21] MEDS: FAMOTIDINE 20 MG TAB PO SCH (21:16)
[2018-06-21] MEDS: ATORVASTATIN 20 MG TAB PO SCH (21:17)
[2018-06-22] VITALS (11 sets, daily range): BP systolic 108–129; BP diastolic 53–60; PULSE 69–98; RESP 18–22
[2018-06-22] MEDS: DOCUSATE SODIUM 100 MG CAP PO SCH ×2 (05:54→17:48)
[2018-06-22] MEDS: traMADol 50 MG TAB PO PRN ×2 (05:55→23:15)
--- NOTE | 2018-06-22 08:26 | CONS ---
Date/Time of Note Date/Time of Note DATE: 06/22/18 TIME: 08:21 Assessment/Plan Assessment/Plan Problems: (1) Bladder mass Comment: f/b Dr Petty... for cysto ?? (2) Leukocytosis Status: Acute Comment: cont to resolve Qualifiers: Leukocytosis type: unspecified Qualified Codes: D72.829 - Elevated white blood cell count, unspecified (3) Hypertension Status: Chronic Comment: controlled Qualifiers: Hypertension type: essential hypertension Qualified Codes: I10 - Essential (primary) hypertension (4) End stage renal disease on dialysis Status: Chronic Comment: for HD in am, then back to TTS schedule (5) AVF (arteriovenous fistula) Status: Chronic Comment: clotted LUE Result Diagram: 06/22/1852606/22/18526 Results 24hrs Laboratory Tests Test 06/22/18 05:27 White Blood Count 13.9 #H Red Blood Count 2.85 L Hemoglobin 8.1 L Hematocrit 26.1 L Mean Corpuscular Volume 91.6 Mean Corpuscular Hemoglobin 28.4 L Mean Corpuscular Hemoglobin Concent 31.0 L Red Cell Distribution Width 14.5 Platelet Count 280 Mean Platelet Volume 10.5 H Immature Granulocytes % 3.000 H Neutrophils % 77.7 H Lymphocytes % 4.0 L Monocytes % 11.9 H Eosinophils % 2.7 Basophils % 0.7 Nucleated Red Blood Cells % 0.0 Immature Granulocytes # 0.410 H Neutrophils # 10.8 H Lymphocytes # 0.6 L Monocytes # 1.7 H Eosinophils # 0.4 Basophils # 0.1 Nucleated Red Blood Cells # 0.0 Sodium Level 131 L Potassium Level 4.4 Chloride Level 94 L Carbon Dioxide Level 28 Anion Gap 9 # Blood Urea Nitrogen 58 H Creatinine 4.78 #H Est Glomerular Filtrat Rate mL/min Glucose Level 99 Calcium Level 8.6 Consultation Date/Type/Reason Admit Date/Time Jun 06, 2018 at 08:52 Initial Consult Date 06/08/18 Type of Consult neph Requesting Provider: RUTH VAZQUEZ MD 24 HR Interval Summary Free Text/Dictation patient feeling much better.. had a nice conversation with him this am... mild cough Exam/Review of Systems Vital Signs Vitals Vital Signs Date Temp Pulse Resp B/P (MAP) Pulse Ox O2 O2 Flow FiO2 Time Delivery Rate 06/22/18 98.0 86 22 113/55 92 Nasal 07:21 (74) Cannula 06/22/18 4.0 02:38 Intake and Output 06/21/18 06/21/18 06/22/18 1515:00 23:00 07:00 IntakeIntake Total 550 ml 500 ml OutputOutput Total 1000 ml BalanceBalance -1000 ml 550 ml 500 ml Exam Constitutional: alert, oriented Psych: no complaints Neck: supple Respiratory: congested cough (w rhonchi... no distress... good air movement) Cardiovascular: regular rate and rhythm Gastrointestinal: soft, nl liver, spleen Extremities: normal pulses, edema (none... cath fem) Medications Medications Current Medications Acetaminophen (Tylenol Tab) 500 mg Q4H PRN PO MILD PAIN(1-3)OR ELEVATED TEMP Last administered on 06/09/18 15:06; Admin Dose 500 MG; Start 06/06/18 at 11:00 Allopurinol (Zyloprim) 300 mg DAILY PO Last administered on 06/21/18 08:51; Admin Dose 300 MG; Start 06/07/18 at 09:00 Aspirin (Aspirin) 81 mg DAILY PO Last administered on 06/21/18 08:52; Admin Dose 81 MG; Start 06/06/18 at 11:00 Atorvastatin Calcium (Lipitor) 20 mg QHS PO Last administered on 06/21/18 21:17; Admin Dose 20 MG; Start 06/06/18 at 21:00 Calcium Carbonate (Oyster Shell Calcium) 0.5 gm BID PO Last administered on 06/21/18 21:16; Admin Dose 0.5 GM; Start 06/06/18 at 21:00 Clopidogrel Bisulfate (plaVIX) 75 mg DAILY PO Last administered on 06/21/18 08:51; Admin Dose 75 MG; Start 06/06/18 at 11:00 Isosorbide Mononitrate (Imdur) 120 mg DAILY PO Last administered on 06/21/18 08:54; Admin Dose 120 MG; Start 06/06/18 at 11:00 Metoprolol Tartrate (Lopressor) 25 mg BID PO Last administered on 06/19/18 21:53; Admin Dose 25 MG; Start 06/06/18 at 11:00 Tramadol HCl (Ultram) 50 mg Q6H PRN PO PAIN Last administered on 06/22/18 05:55; Admin Dose 50 MG; Start 06/06/18 at 11:00 IV Flush (NS 3 ml) 3 ml PER PROTOCOL IV ; Start 06/06/18 at 14:00 Lorazepam (Ativan) 0.5 mg Q8H PRN PO ANXIETY Last administered on 06/17/18 23:46; Admin Dose 0.5 MG; Start 06/06/18 at 14:00 Acetaminophen/ Hydrocodone Bitart ([place] (5/325)) 1 tab Q6H PRN PO PAIN LEVEL 4-6 Last administered on 06/21/18 03:04; Admin Dose 1 TAB; Start 06/06/18 at 14:00 Famotidine (Pepcid) 20 mg Q24H PO Last administered on 06/21/18 21:16; Admin Dose 20 MG; Start 06/06/18 at 21:00 Digoxin (Digoxin) 0.0625 mg DAILY@1300 PO Last administered on 06/21/18 13:21; Admin Dose 0.0625 MG; Start 06/07/18 at 13:00 Furosemide (Lasix) 40 mg DAILY PO Last administered on 06/21/18 08:53; Admin Dose 40 MG; Start 06/07/18 at 09:00 Celecoxib (Celebrex) 100 mg BID PO Last administered on 06/21/18 21:17; Admin Dose 100 MG; Start 06/06/18 at 14:00 Epoetin Calos (Epogen (Esrd)) 10,000 units MoWeFr@17 SC Last administered on 06/21/18 17:51; Admin Dose 10,000 UNITS; Start 06/07/18 at 17:00 Multivit/Ca Carb/ B Cmplx/FA/Prenat (Fany-Jose Luis) 1 tab DAILY PO Last administered on 06/21/18 08:51; Admin Dose 1 TAB; Start 06/08/18 at 09:00 Morphine Sulfate (morphine) 0.5 mg Q4 PRN IV SEVERE PAIN LEVEL 7-10 Last administered on 06/19/18 16:29; Admin Dose 0.5 MG; Start 06/08/18 at 22:30 Heparin Sodium (Porcine) (Heparin (1000 Units/ml)) 2,800 unit PRN PRN CATHETER DIALYSIS Last administered on 06/17/18 19:11; Admin Dose 6,100 UNIT; Start 06/09/18 at 16:30 Lidocaine (Lidoderm) 1 patch DAILY TD Last administered on 06/21/18 08:58; Admin Dose 1 PATCH; Start 06/11/18 at 11:00 Metoclopramide HCl (Reglan) 5 mg AC MEALS PO Last administered on 06/18/18 12:48; Admin Dose 5 MG; Start 06/11/18 at 11:30; Status Hold Ondansetron HCl (Zofran Inj) 4 mg Q6H PRN IV NAUSEA AND/OR VOMITING Last admini stered on 06/20/18 09:36; Admin Dose 4 MG; Start 06/12/18 at 15:30 Lisinopril (Zestril) 2.5 mg QHS PO Last administered on 06/20/18 22:07; Admin Dose 2.5 MG; Start 06/13/18 at 21:00 Lactulose (Enulose) 20 gm DAILY PRN PO CONSTIPATION Last administered on 06/20/18 05:42; Admin Dose 20 GM; Start 06/18/18 at 08:00 Docusate Sodium (Colace) 100 mg Q12H PO Last administered on 06/22/18 05:54; Admin Dose 100 MG; Start 06/19/18 at 07:00 Tamsulosin HCl (Flomax) 0.4 mg HS PO Last administered on 06/21/18 21:16; Admin Dose 0.4 MG; Start 06/19/18 at 21:00 Heparin Sodium (Porcine) (Heparin (1000 Units/ml)) 6,100 unit AFTER DIALYSIS CATHETER Last administered on 06/21/18 13:18; Admin Dose 6,100 UNIT; Start 06/19/18 at 16:00 Albumin Human 100 ml @ 100 mls/hr DURING DIALYSIS PRN IV BLOOD PRESSURE SUPPORT Last administered on 06/21/18 11:00; Admin Dose 100 MLS/HR; Start 06/21/18 at 11:00 ULISES FOREMAN MD Jun 22, 2018 08:26
[2018-06-22] MEDS: ASPIRIN 81 MG TAB PO SCH (09:00)
[2018-06-22] MEDS: CALCIUM CARBONATE 1.25 GM TAB PO SCH ×2 (09:10→20:59)
[2018-06-22] MEDS: METOPROLOL 25 MG TAB PO SCH ×2 (09:11→21:00)
[2018-06-22] MEDS: CLOPIDOGREL 75 MG TAB PO SCH (09:11)
[2018-06-22] MEDS: MULTIVIT/CA CARB/B CMPLX/FA TAB PO SCH (09:11)
[2018-06-22] MEDS: ALLOPURINOL 300 MG TAB PO SCH (09:11)
[2018-06-22] MEDS: FUROSEMIDE 40 MG TAB PO SCH (09:11)
[2018-06-22] MEDS: CELECOXIB 100 MG CAP PO SCH ×2 (09:11→21:00)
[2018-06-22] MEDS: LIDOCAINE 5% PATCH TD SCH (09:13)
[2018-06-22] MEDS: ISOSORBIDE MONONITRATE(SR)60 MG TAB PO SCH (09:13)
[2018-06-22] MEDS: DIGOXIN 0.125 MG TAB PO SCH (14:02)
--- NOTE | 2018-06-22 15:16 | PN ---
Date/Time of Note Date/Time of Note DATE: 06/22/18 TIME: 14:33 Assessment/Plan VTE Prophylaxis Risk score (from Ns)>0 risk: 7 SCD applied (from [facility] [place]): Yes Pharmacological prophylaxis: NA/contraindicated Pharm contraindication: renal impairment Lines/Catheters IV Catheter Type (from [facility]): CORNELL CATH Urinary Cath still in place: No Assessment/Plan Hospital Course 88 y/o M with HTN, CAD, CVA, CHF who presented after a fall. He was noted to have bladder distention on examination, urinary catheter drained dark old blood. Further imaging showed soft tissue mass in the bladder. HTN -continue lisinopril, isosorbide mononitrate and metoprolol CVA -continue aspirin, atorvastatin and plavix CHF -continue lasix, digoxin CAD -continue aspirin, atorvastatin and metoprolol Bladder cancer -possible cystoscopy with resection of bladder mass if family is agreeable -f/u family and urology Hyponatremia -repeat serum sodium -? related to end stage renal disease -check serum osmol Result Diagram: 06/22/1852606/22/18 0527 Results 24hrs Laboratory Tests Test 06/22/18 05:27 White Blood Count 13.9 #H Red Blood Count 2.85 L Hemoglobin 8.1 L Hematocrit 26.1 L Mean Corpuscular Volume 91.6 Mean Corpuscular Hemoglobin 28.4 L Mean Corpuscular Hemoglobin Concent 31.0 L Red Cell Distribution Width 14.5 Platelet Count 280 Mean Platelet Volume 10.5 H Immature Granulocytes % 3.000 H Neutrophils % 77.7 H Lymphocytes % 4.0 L Monocytes % 11.9 H Eosinophils % 2.7 Basophils % 0.7 Nucleated Red Blood Cells % 0.0 Immature Granulocytes # 0.410 H Neutrophils # 10.8 H Lymphocytes # 0.6 L Monocytes # 1.7 H Eosinophils # 0.4 Basophils # 0.1 Nucleated Red Blood Cells # 0.0 Sodium Level 131 L Potassium Level 4.4 Chloride Level 94 L Carbon Dioxide Level 28 Anion Gap 9 # Blood Urea Nitrogen 58 H Creatinine 4.78 #H Est Glomerular Filtrat Rate mL/min Glucose Level 99 Calcium Level 8.6 Subjective 24 Hr Interval Summary Free Text/Dictation Patient seen and examined at bedside. He is alert and oriented and answering questions appropriately. Exam/Review of Systems Vital Signs Vitals Vital Signs Date Temp Pulse Resp B/P (MAP) Pulse Ox O2 O2 Flow FiO2 Time Delivery Rate 06/22/18 70 12:40 06/22/18 98.0 20 108/56 100 Nasal 11:29 (73) Cannula 06/22/18 3.0 08:15 Intake and Output 06/21/18 06/21/18 06/22/18 1515:00 23:00 07:00 IntakeIntake Total 550 ml 500 ml OutputOutput Total 1000 ml BalanceBalance -1000 ml 550 ml 500 ml Exam General: Comfortable in appearance, not in acute distress. Skin appropriate for ethnicity Eye: Extraocular movements are intact, Normal conjunctiva. HENT: Normocephalic, atraumatic. Respiratory: Respirations are non-labored, Breath sounds are equal, Symmetrical chest wall expansion. Cardiovascular: S1, S2. No murmur. No LE edema Gastrointestinal: Soft, Non-tender, Non-distended, Normal bowel sounds. Integumentary: Warm to touch. Bruise on left forearm Neurologic: Alert, Oriented. Cognition and Speech: Speech clear and coherent, Functional cognition intact. Psychiatric: Cooperative, Appropriate mood & affect. Medications Medications Current Medications Acetaminophen (Tylenol Tab) 500 mg Q4H PRN PO MILD PAIN(1-3)OR ELEVATED TEMP Last administered on 06/09/18at 15:06; Admin Dose 500 MG; Start 06/06/18 at 11:00 Allopurinol (Zyloprim) 300 mg DAILY PO Last administered on 06/22/18 09:11; Admin Dose 300 MG; Start 06/07/18 at 09:00 Aspirin (Aspirin) 81 mg DAILY PO Last administered on 06/21/18 08:52; Admin Dose 81 MG; Start 06/06/18 at 11:00 Atorvastatin Calcium (Lipitor) 20 mg QHS PO Last administered on 06/21/18 21:17; Admin Dose 20 MG; Start 06/06/18 at 21:00 Calcium Carbonate (Oyster Shell Calcium) 0.5 gm BID PO Last administered on 06/22/18 09:10; Admin Dose 0.5 GM; Start 06/06/18 at 21:00 Clopidogrel Bisulfate (plaVIX) 75 mg DAILY PO Last administered on 06/22/18 09:11; Admin Dose 75 MG; Start 06/06/18 at 11:00 Isosorbide Mononitrate (Imdur) 120 mg DAILY PO Last administered on 06/22/18 09:13; Admin Dose 120 MG; Start 06/06/18 at 11:00 Metoprolol Tartrate (Lopressor) 25 mg BID PO Last administered on 06/22/18 09:11; Admin Dose 25 MG; Start 06/06/18 at 11:00 Tramadol HCl (Ultram) 50 mg Q6H PRN PO PAIN Last administered on 06/22/18 05:55; Admin Dose 50 MG; Start 06/06/18 at 11:00 IV Flush (NS 3 ml) 3 ml PER PROTOCOL IV ; Start 06/06/18 at 14:00 Lorazepam (Ativan) 0.5 mg Q8H PRN PO ANXIETY Last administered on 06/17/18 23:46; Admin Dose 0.5 MG; Start 06/06/18 at 14:00 Acetaminophen/ Hydrocodone Bitart ([place] (5/325)) 1 tab Q6H PRN PO PAIN LEVEL 4-6 Last administered on 06/21/18 03:04; Admin Dose 1 TAB; Start 06/06/18 at 14:00 Famotidine (Pepcid) 20 mg Q24H PO Last administered on 06/21/18 21:16; Admin Dose 20 MG; Start 06/06/18 at 21:00 Digoxin (Digoxin) 0.0625 mg DAILY@1300 PO Last administered on 06/22/18 14:02; Admin Dose 0.0625 MG; Start 06/07/18 at 13:00 Furosemide (Lasix) 40 mg DAILY PO Last administered on 06/22/18 09:11; Admin Dose 40 MG; Start 06/07/18 at 09:00 Celecoxib (Celebrex) 100 mg BID PO Last administered on 06/22/18 09:11; Admin Dose 100 MG; Start 06/06/18 at 14:00 Epoetin Calos (Epogen (Esrd)) 10,000 units MoWeFr@17 SC Last administered on 06/21/18 17:51; Admin Dose 10,000 UNITS; Start 06/07/18 at 17:00 Multivit/Ca Carb/ B Cmplx/FA/Prenat (Fany-Jose Luis) 1 tab DAILY PO Last administered on 06/22/18 09:11; Admin Dose 1 TAB; Start 06/08/18 at 09:00 Morphine Sulfate (morphine) 0.5 mg Q4 PRN IV SEVERE PAIN LEVEL 7-10 Last administered on 06/19/18 16:29; Admin Dose 0.5 MG; Start 06/08/18 at 22:30 Heparin Sodium (Porcine) (Heparin (1000 Units/ml)) 2,800 unit PRN PRN CATHETER DIALYSIS Last administered on 06/17/18 19:11; Admin Dose 6,100 UNIT; Start 06/09/18 at 16:30 Lidocaine (Lidoderm) 1 patch DAILY TD Last administered on 06/22/18 09:13; Admin Dose 1 PATCH; Start 06/11/18 at 11:00 Metoclopramide HCl (Reglan) 5 mg AC MEALS PO Last administered on 06/18/18 12:48; Admin Dose 5 MG; Start 06/11/18 at 11:30; Status Hold Ondansetron HCl (Zofran Inj) 4 mg Q6H PRN IV NAUSEA AND/OR VOMITING Last administered on 06/20/18 09:36; Admin Dose 4 MG; Start 06/12/18 at 15:30 Lisinopril (Zestril) 2.5 mg QHS PO Last administered on 06/20/18 22:07; Admin Dose 2.5 MG; Start 06/13/18 at 21:00 Lactulose (Enulose) 20 gm DAILY PRN PO CONSTIPATION Last administered on 06/20/18 05:42; Admin Dose 20 GM; Start 06/18/18 at 08:00 Docusate Sodium (Colace) 100 mg Q12H PO Last administered on 06/22/18 05:54; Admin Dose 100 MG; Start 06/19/18 at 07:00 Tamsulosin HCl (Flomax) 0.4 mg HS PO Last administered on 06/21/18 21:16; Admin Dose 0.4 MG; Start 06/19/18 at 21:00 Heparin Sodium (Porcine) (Heparin (1000 Units/ml)) 6,100 unit AFTER DIALYSIS CATHETER Last administered on 06/21/18 13:18; Admin Dose 6,100 UNIT; Start 06/19/18 at 16:00 Albumin Human 100 ml @ 100 mls/hr DURING DIALYSIS PRN IV BLOOD PRESSURE SUPPORT Last administered on 06/21/18at 11:00; Admin Dose 100 MLS/HR; Start 06/21/18 at 11:00 AQUILINO ISLAS MD Jun 22, 2018 14:45
--- NOTE | 2018-06-22 17:23 | CONS ---
Date/Time of Note Date/Time of Note DATE: 06/22/18 TIME: 17:19 Consult Date/Type/Reason Admit Date/Time Jun 06, 2018 at 08:52 Initial Consult Date 06/08/18 Type of Consultation: Urology Reason for Consultation Gross hematuria. Requesting Provider: RUTH VAZQUEZ MD Subjective Patient is awake and his daughter is at his bedside. His did fall and break her ankle and is not able to come to see him. Objective Vital Signs Date Temp Pulse Resp B/P (MAP) Pulse Ox O2 O2 Flow FiO2 Time Delivery Rate 06/22/18 76 16:52 06/22/18 4.0 16:51 06/22/18 98.0 18 129/60 100 Nasal 15:21 (83) Cannula Intake and Output 06/21/18 06/21/18 06/22/18 1515:00 23:00 07:00 IntakeIntake Total 550 ml 500 ml OutputOutput Total 1000 ml BalanceBalance -1000 ml 550 ml 500 ml Exam He is awake and alert. The bladder is not distended. He is reported to be incontinent. Results/Medications Result Diagram: 06/22/1827 06/22/1827 Results 24 hrs Laboratory Tests Test 06/22/18 05:27 White Blood Count 13.9 #H Red Blood Count 2.85 L Hemoglobin 8.1 L Hematocrit 26.1 L Mean Corpuscular Volume 91.6 Mean Corpuscular Hemoglobin 28.4 L Mean Corpuscular Hemoglobin Concent 31.0 L Red Cell Distribution Width 14.5 Platelet Count 280 Mean Platelet Volume 10.5 H Immature Granulocytes % 3.000 H Neutrophils % 77.7 H Lymphocytes % 4.0 L Monocytes % 11.9 H Eosinophils % 2.7 Basophils % 0.7 Nucleated Red Blood Cells % 0.0 Immature Granulocytes # 0.410 H Neutrophils # 10.8 H Lymphocytes # 0.6 L Monocytes # 1.7 H Eosinophils # 0.4 Basophils # 0.1 Nucleated Red Blood Cells # 0.0 Sodium Level 131 L Potassium Level 4.4 Chloride Level 94 L Carbon Dioxide Level 28 Anion Gap 9 # Blood Urea Nitrogen 58 H Creatinine 4.78 #H Est Glomerular Filtrat Rate mL/min Glucose Level 99 Calcium Level 8.6 Medications Current Medications Acetaminophen (Tylenol Tab) 500 mg Q4H PRN PO MILD PAIN(1-3)OR ELEVATED TEMP Last administered on 06/09/18 15:06; Admin Dose 500 MG; Start 06/06/18 at 11:00 Allopurinol (Zyloprim) 300 mg DAILY PO Last administered on 06/22/18 09:11; Admin Dose 300 MG; Start 06/07/18 at 09:00 Aspirin (Aspirin) 81 mg DAILY PO Last administered on 06/21/18 08:52; Admin Dose 81 MG; Start 06/06/18 at 11:00 Atorvastatin Calcium (Lipitor) 20 mg QHS PO Last administered on 06/21/18 21:17; Admin Dose 20 MG; Start 06/06/18 at 21:00 Calcium Carbonate (Oyster Shell Calcium) 0.5 gm BID PO Last administered on 06/22/18 09:10; Admin Dose 0.5 GM; Start 06/06/18 at 21:00 Clopidogrel Bisulfate (plaVIX) 75 mg DAILY PO Last administered on 06/22/18 09:11; Admin Dose 75 MG; Start 06/06/18 at 11:00 Isosorbide Mononitrate (Imdur) 120 mg DAILY PO Last administered on 06/22/18 09:13; Admin Dose 120 MG; Start 06/06/18 at 11:00 Metoprolol Tartrate (Lopressor) 25 mg BID PO Last administered on 06/22/18 09:11; Admin Dose 25 MG; Start 06/06/18 at 11:00 Tramadol HCl (Ultram) 50 mg Q6H PRN PO PAIN Last administered on 06/22/18 05:55; Admin Dose 50 MG; Start 06/06/18 at 11:00 IV Flush (NS 3 ml) 3 ml PER PROTOCOL IV ; Start 06/06/18 at 14:00 Lorazepam (Ativan) 0.5 mg Q8H PRN PO ANXIETY Last administered on 06/17/18 23:46; Admin Dose 0.5 MG; Start 06/06/18 at 14:00 Acetaminophen/ Hydrocodone Bitart ([place] (5/325)) 1 tab Q6H PRN PO PAIN LEVEL 4-6 Last administered on 06/21/18 03:04; Admin Dose 1 TAB; Start 06/06/18 at 14:00 Famotidine (Pepcid) 20 mg Q24H PO Last administered on 06/21/18 21:16; Admin Dose 20 MG; Start 06/06/18 at 21:00 Digoxin (Digoxin) 0.0625 mg DAILY@1300 PO Last administered on 06/22/18 14:02; Admin Dose 0.0625 MG; Start 06/07/18 at 13:00 Furosemide (Lasix) 40 mg DAILY PO Last administered on 06/22/18 09:11; Admin Dose 40 MG; Start 06/07/18 at 09:00 Celecoxib (Celebrex) 100 mg BID PO Last administered on 06/22/18 09:11; Admin Dose 100 MG; Start 06/06/18 at 14:00 Epoetin Calos (Epogen (Esrd)) 10,000 units MoWeFr@17 SC Last administered on 06/21/18 17:51; Admin Dose 10,000 UNITS; Start 06/07/18 at 17:00 Multivit/Ca Carb/ B Cmplx/FA/Prenat (Fany-Jose Luis) 1 tab DAILY PO Last administered on 06/22/18 09:11; Admin Dose 1 TAB; Start 06/08/18 at 09:00 Morphine Sulfate (morphine) 0.5 mg Q4 PRN IV SEVERE PAIN LEVEL 7-10 Last administered on 06/19/18 16:29; Admin Dose 0.5 MG; Start 06/08/18 at 22:30 Heparin Sodium (Porcine) (Heparin (1000 Units/ml)) 2,800 unit PRN PRN CATHETER DIALYSIS Last administered on 06/17/18 19:11; Admin Dose 6,100 UNIT; Start 06/09/18 at 16:30 Lidocaine (Lidoderm) 1 patch DAILY TD Last administered on 06/22/18 09:13; Admin Dose 1 PATCH; Start 06/11/18 at 11:00 Metoclopramide HCl (Reglan) 5 mg AC MEALS PO Last administered on 06/18/18 12:48; Admin Dose 5 MG; Start 06/11/18 at 11:30; Status Hold Ondansetron HCl (Zofran Inj) 4 mg Q6H PRN IV NAUSEA AND/OR VOMITING Last administered on 06/20/18 09:36; Admin Dose 4 MG; Start 06/12/18 at 15:30 Lisinopril (Zestril) 2.5 mg QHS PO Last administered on 06/20/18at 22:07; Admin Dose 2.5 MG; Start 06/13/18 at 21:00 Lactulose (Enulose) 20 gm DAILY PRN PO CONSTIPATION Last administered on 06/20/18 05:42; Admin Dose 20 GM; Start 06/18/18 at 08:00 Docusate Sodium (Colace) 100 mg Q12H PO Last administered on 06/22/18 05:54; Admin Dose 100 MG; Start 06/19/18 at 07:00 Tamsulosin HCl (Flomax) 0.4 mg HS PO Last administered on 06/21/18 21:16; Admin Dose 0.4 MG; Start 06/19/18 at 21:00 Heparin Sodium (Porcine) (Heparin (1000 Units/ml)) 6,100 unit AFTER DIALYSIS CATHETER Last administered on 06/21/18 13:18; Admin Dose 6,100 UNIT; Start 06/19/18 at 16:00 Albumin Human 100 ml @ 100 mls/hr DURING DIALYSIS PRN IV BLOOD PRESSURE SUPPORT Last administered on 06/21/18at 11:00; Admin Dose 100 MLS/HR; Start 06/21/18 at 11:00 Assessment/Plan Chief Complaint/Hosp Course 88-year-old with a history of end-stage renal disease on hemodialysis had gross hematuria. He was on bladder irrigation until the urine return was clear then the irrigation was stopped and the Llamas catheter was removed and the patient was able to urinate and the postvoid residual was not high. He did undergo p elvic ultrasound today and the prevoid volume was:87ml. The post void volume was:14ml The bladder was partially distended. Bladder wall is mildly thickened with mildly trabeculated appearance. There is 1.7 x 1.7 cm soft tissue structure in the dependent portion of the urinary bladder without internal vascular flow, c onnected to the bladder base with a thin band. Prostate measures 2.9 x 2.4 x 3.9 cm (14.4 ml). With this finding of a mass in the bladder one has to rule out bladder tumor. I did discuss this finding with him and his daughter who was at his bedside. I showed her the pictures of the ultrasound and she took photos of these on her phone. We discussed the options of waiting and doing nothing and at a later date repeat the pelvic ultrasound. The risk from this is that if there is a bladder tumor the tumor could become larger and more aggressive. The other option is to do a cystoscopy and if there is a bladder tumor resect it. And to do that we will need to stop his anticoagulation at that subject him to much higher cardiac events. Therefore it was decided to wait and he expressed his desire to do so and he will discuss it further with his daughter and his . HAI URIBE MD Jun 22, 2018 17:23
[2018-06-22] MEDS: ATORVASTATIN 20 MG TAB PO SCH (20:58)
[2018-06-22] MEDS: FAMOTIDINE 20 MG TAB PO SCH (20:58)
[2018-06-22] MEDS: TAMSULOSIN (SR) 0.4 MG CAP PO SCH (20:59)
[2018-06-22] MEDS: LISINOPRIL 5 MG TAB PO SCH (21:00)
[2018-06-23] VITALS (26 sets, daily range): BP systolic 101–166; BP diastolic 44–63; PULSE 63–86; RESP 16–22
[2018-06-23] MEDS: LORAZEPAM 0.5 MG TAB PO PRN ×2 (00:43→23:50)
--- NOTE | 2018-06-23 08:42 | CONS ---
Date/Time of Note Date/Time of Note DATE: 06/23/18 TIME: 08:39 Assessment/Plan Assessment/Plan Problems: (1) Leukocytosis Status: Acute Comment: resolving.. recheck in am Qualifiers: Leukocytosis type: unspecified Qualified Codes: D72.829 - Elevated white blood cell count, unspecified (2) Bladder mass Comment: seen by dr Petty... having discussions with pt and familt, re: poss cysto (3) End stage renal disease on dialysis Status: Chronic Comment: for HD today, then back to TTS Result Diagram: 06/22/18 0527 06/23/18 0455 Results 24hrs Laboratory Tests Test 06/23/18 04:55 Sodium Level 131 L Potassium Level 4.8 Chloride Level 89 L Carbon Dioxide Level 27 Anion Gap 15 H Blood Urea Nitrogen 70 H Creatinine 6.07 H Est Glomerular Filtrat Rate mL/min Glucose Level 98 Calcium Level 9.1 Total Bilirubin 0.1 L Direct Bilirubin 0.00 Indirect Bilirubin 0.1 Aspartate Amino Transf (AST/SGOT) 62 H Alanine Aminotransferase (ALT/SGPT) 33 Alkaline Phosphatase 351 H Total Protein 5.8 L Albumin 3.2 L Globulin 2.60 Albumin/Globulin Ratio 1.23 Consultation Date/Type/Reason Admit Date/Time Jun 06, 2018 at 08:52 Initial Consult Date 06/08/18 Type of Consult neph Requesting Provider: RUTH VAZQUEZ MD 24 HR Interval Summary Free Text/Dictation less conversant today... no cp or sob tho Exam/Review of Systems Vital Signs Vitals Vital Signs Date Temp Pulse Resp B/P (MAP) Pulse Ox O2 O2 Flow FiO2 Time Delivery Rate 06/23/18 83 08:12 06/23/18 98.0 22 133/60 96 Room Air 07:48 (84) 06/23/18 3.0 03:35 Intake and Output 06/22/18 06/22/18 06/23/18 1515:00 23:00 07:00 IntakeIntake Total 600 ml BalanceBalance 600 ml Exam Constitutional: alert Psych: no complaints Eyes: nl conjunctiva Neck: supple Respiratory: clear to auscultation Cardiovascular: regular rate and rhythm Gastrointestinal: soft Extremities: normal pulses (femoral cath) Medications Medications Current Medications Acetaminophen (Tylenol Tab) 500 mg Q4H PRN PO MILD PAIN(1-3)OR ELEVATED TEMP Last administered on 06/09/18 15:06; Admin Dose 500 MG; Start 06/06/18 at 11:00 Allopurinol (Zyloprim) 300 mg DAILY PO Last administered on 06/22/18 09:11; Admin Dose 300 MG; Start 06/07/18 at 09:00 Aspirin (Aspirin) 81 mg DAILY PO Last administered on 06/21/18 08:52; Admin Dose 81 MG; Start 06/06/18 at 11:00 Atorvastatin Calcium (Lipitor) 20 mg QHS PO Last administered on 06/22/18 20:58; Admin Dose 20 MG; Start 06/06/18 at 21:00 Calcium Carbonate (Oyster Shell Calcium) 0.5 gm BID PO Last administered on 06/22/18 20:59; Admin Dose 0.5 GM; Start 06/06/18 at 21:00 Clopidogrel Bisulfate (plaVIX) 75 mg DAILY PO Last administered on 06/22/18 09:11; Admin Dose 75 MG; Start 06/06/18 at 11:00 Isosorbide Mononitrate (Imdur) 120 mg DAILY PO Last administered on 06/22/18 09:13; Admin Dose 120 MG; Start 06/06/18 at 11:00 Metoprolol Tartrate (Lopressor) 25 mg BID PO Last administered on 06/22/18 21:00; Admin Dose 25 MG; Start 06/06/18 at 11:00 Tramadol HCl (Ultram) 50 mg Q6H PRN PO PAIN Last administered on 06/22/18 23:15; Admin Dose 50 MG; Start 06/06/18 at 11:00 IV Flush (NS 3 ml) 3 ml PER PROTOCOL IV ; Start 06/06/18 at 14:00 Lorazepam (Ativan) 0.5 mg Q8H PRN PO ANXIETY Last administered on 06/23/18 00:43; Admin Dose 0.5 MG; Start 06/06/18 at 14:00 Acetaminophen/ Hydrocodone Bitart ([place] (5/325)) 1 tab Q6H PRN PO PAIN LEVEL 4-6 Last administered on 06/21/18 03:04; Admin Dose 1 TAB; Start 06/06/18 at 14:00 Famotidine (Pepcid) 20 mg Q24H PO Last administered on 06/22/18 20:58; Admin Dose 20 MG; Start 06/06/18 at 21:00 Digoxin (Digoxin) 0.0625 mg DAILY@1300 PO Last administered on 06/22/18 14:02; Admin Dose 0.0625 MG; Start 06/07/18 at 13:00 Furosemide (Lasix) 40 mg DAILY PO Last administered on 06/22/18 09:11; Admin Dose 40 MG; Start 06/07/18 at 09:00 Celecoxib (Celebrex) 100 mg BID PO Last administered on 06/22/18 21:00; Admin Dose 100 MG; Start 06/06/18 at 14:00 Epoetin Calos (Epogen (Esrd)) 10,000 units MoWeFr@17 SC Last administered on 06/21/18 17:51; Admin Dose 10,000 UNITS; Start 06/07/18 at 17:00 Multivit/Ca Carb/ B Cmplx/FA/Prenat (Fany-Jose Luis) 1 tab DAILY PO Last administered on 06/22/18 09:11; Admin Dose 1 TAB; Start 06/08/18 at 09:00 Morphine Sulfate (morphine) 0.5 mg Q4 PRN IV SEVERE PAIN LEVEL 7-10 Last administered on 06/19/18 16:29; Admin Dose 0.5 MG; Start 06/08/18 at 22:30 Heparin Sodium (Porcine) (Heparin (1000 Units/ml)) 2,800 unit PRN PRN CATHETER DIALYSIS Last administered on 06/17/18 19:11; Admin Dose 6,100 UNIT; Start at 16:30 Lidocaine (Lidoderm) 1 patch DAILY TD Last administered on 06/22/18 09:13; Admin Dose 1 PATCH; Start 06/11/18 at 11:00 Metoclopramide HCl (Reglan) 5 mg AC MEALS PO Last administered on 06/18/18 12:48; Admin Dose 5 MG; Start 06/11/18 at 11:30; Status Hold Ondansetron HCl (Zofran Inj) 4 mg Q6H PRN IV NAUSEA AND/OR VOMITING Last administered on 06/20/18 09:36; Admin Dose 4 MG; Start 06/12/18 at 15:30 Lisinopril (Zestril) 2.5 mg QHS PO Last administered on 06/22/18 21:00; Admin Dose 2.5 MG; Start 06/13/18 at 21:00 Lactulose (Enulose) 20 gm DAILY PRN PO CONSTIPATION Last administered on 06/20/18 05:42; Admin Dose 20 GM; Start 06/18/18 at 08:00 Docusate Sodium (Colace) 100 mg Q12H PO Last administered on 06/22/18 17:48; Admin Dose 100 MG; Start 06/19/18 at 07:00 Tamsulosin HCl (Flomax) 0.4 mg HS PO Last administered on 06/22/18 20:59; Admin Dose 0.4 MG; Start 06/19/18 at 21:00 Heparin Sodium (Porcine) (Heparin (1000 Units/ml)) 6,100 unit AFTER DIALYSIS CATHETER Last administered on 06/21/18 13:18; Admin Dose 6,100 UNIT; Start 06/19/18 at 16:00 Albumin Human 100 ml @ 100 mls/hr DURING DIALYSIS PRN IV BLOOD PRESSURE SUPPORT Last administered on 06/21/18 11:00; Admin Dose 100 MLS/HR; Start 06/21/18 at 11:00 ULISES FOREMAN MD Jun 23, 2018 08:42
[2018-06-23] MEDS: CLOPIDOGREL 75 MG TAB PO SCH (08:44)
[2018-06-23] MEDS: ASPIRIN 81 MG TAB PO SCH (08:45)
[2018-06-23] MEDS: DOCUSATE SODIUM 100 MG CAP PO SCH ×2 (08:45→19:00)
[2018-06-23] MEDS: ISOSORBIDE MONONITRATE(SR)60 MG TAB PO SCH (08:45)
[2018-06-23] MEDS: CALCIUM CARBONATE 1.25 GM TAB PO SCH ×2 (08:45→21:47)
[2018-06-23] MEDS: METOPROLOL 25 MG TAB PO SCH ×2 (08:46→21:47)
[2018-06-23] MEDS: MULTIVIT/CA CARB/B CMPLX/FA TAB PO SCH (08:46)
[2018-06-23] MEDS: FUROSEMIDE 40 MG TAB PO SCH (08:46)
[2018-06-23] MEDS: ALLOPURINOL 300 MG TAB PO SCH (08:46)
[2018-06-23] MEDS: CELECOXIB 100 MG CAP PO SCH ×2 (08:46→21:47)
[2018-06-23] MEDS: LIDOCAINE 5% PATCH TD SCH (08:48)
[2018-06-23] MEDS: DIGOXIN 0.125 MG TAB PO SCH (13:00)
[2018-06-23] MEDS: ALBUMIN HUMAN 25% 100 ML IV PRN (13:11)
--- NOTE | 2018-06-23 14:29 | PN ---
Date/Time of Note Date/Time of Note DATE: 06/23/18 TIME: 14:25 Assessment/Plan VTE Prophylaxis Risk score (from Ns)>0 risk: 8 SCD applied (from Ns): Yes Pharmacological prophylaxis: NA/contraindicated Pharm contraindication: anticoag not tolerated Lines/Catheters IV Catheter Type (from Nrs): Ministerio Cath Urinary Cath still in place: No Assessment/Plan Hospital Course 88 y/o M with HTN, CAD, CVA, CHF who presented after a fall. He was noted to have bladder distention on examination, urinary catheter drained dark old blood. Further imaging showed soft tissue mass in the bladder. HTN -continue lisinopril, isosorbide mononitrate and metoprolol CVA -continue aspirin, atorvastatin and plavix CHF -continue lasix, digoxin CAD -continue aspirin, atorvastatin and metoprolol Bladder cancer -possible cystoscopy with resection of bladder mass if family is agreeable -f/u family and urology Hyponatremia -repeat serum sodium after HD -check TSH, CMP in AM Result Diagram: 06/22/18 0527 06/23/18 0455 Results 24hrs Laboratory Tests Test 06/23/18 04:55 Sodium Level 131 L Potassium Level 4.8 Chloride Level 89 L Carbon Dioxide Level 27 Anion Gap 15 H Blood Urea Nitrogen 70 H Creatinine 6.07 H Est Glomerular Filtrat Rate mL/min Glucose Level 98 Osmolality 293 Calcium Level 9.1 Total Bilirubin 0.1 L Direct Bilirubin 0.00 Indirect Bilirubin 0.1 Aspartate Amino Transf (AST/SGOT) 62 H Alanine Aminotransferase (ALT/SGPT) 33 Alkaline Phosphatase 351 H Total Protein 5.8 L Albumin 3.2 L Globulin 2.60 Albumin/Globulin Ratio 1.23 Subjective 24 Hr Interval Summary Free Text/Dictation Patient seen at bedside, sleeping while getting hemodialysis Exam/Review of Systems Vital Signs Vitals Vital Signs Date Temp Pulse Resp B/P (MAP) Pulse Ox O2 O2 Flow FiO2 Time Delivery Rate 06/23/18 78 14:00 06/23/18 97.8 20 117/57 96 Nasal 11:55 (77) Cannula 06/23/18 3.0 03:35 Intake and Output 06/22/18 06/22/18 06/23/18 1515:00 23:00 07:00 IntakeIntake Total 600 ml BalanceBalance 600 ml Exam General: Sleeping. Skin appropriate for ethnicity HENT: Normocephalic, atraumatic. Respiratory: Respirations are non-labored, Breath sounds are equal, Symmetrical chest wall expansion. Cardiovascular: S1, S2. No murmur. No LE edema Gastrointestinal: Soft, Non-distended, Normal bowel sounds. Integumentary: Warm to touch. Bruises in upper extremities Medications Medications Current Medications Acetaminophen (Tylenol Tab) 500 mg Q4H PRN PO MILD PAIN(1-3)OR ELEVATED TEMP Last administered on 06/09/18 15:06; Admin Dose 500 MG; Start 06/06/18 at 11:00 Allopurinol (Zyloprim) 300 mg DAILY PO Last administered on 06/23/18 08:46; Admin Dose 300 MG; Start 06/07/18 at 09:00 Aspirin (Aspirin) 81 mg DAILY PO Last administered on 06/23/18 08:45; Admin Dose 81 MG; Start 06/06/18 at 11:00 Atorvastatin Calcium (Lipitor) 20 mg QHS PO Last administered on 06/22/18 20:58; Admin Dose 20 MG; Start 06/06/18 at 21:00 Calcium Carbonate (Oyster Shell Calcium) 0.5 gm BID PO Last administered on 06/23/18 08:45; Admin Dose 0.5 GM; Start 06/06/18 at 21:00 Clopidogrel Bisulfate (plaVIX) 75 mg DAILY PO Last administered on 06/23/18 08:44; Admin Dose 75 MG; Start 06/06/18 at 11:00 Isosorbide Mononitrate (Imdur) 120 mg DAILY PO Last administered on 06/23/18 08:45; Admin Dose 120 MG; Start 06/06/18 at 11:00 Metoprolol Tartrate (Lopressor) 25 mg BID PO Last administered on 06/23/18 08:46; Admin Dose 25 MG; Start 06/06/18 at 11:00 Tramadol HCl (Ultram) 50 mg Q6H PRN PO PAIN Last administered on 06/22/18 23:15; Admin Dose 50 MG; Start 06/06/18 at 11:00 IV Flush (NS 3 ml) 3 ml PER PROTOCOL IV ; Start 06/06/18 at 14:00 Lorazepam (Ativan) 0.5 mg Q8H PRN PO ANXIETY Last administered on 06/23/18 00:43; Admin Dose 0.5 MG; Start 06/06/18 at 14:00 Acetaminophen/ Hydrocodone Bitart ([place] (5/325)) 1 tab Q6H PRN PO PAIN LEVEL 4-6 Last administered on 06/21/18 03:04; Admin Dose 1 TAB; Start 06/06/18 at 14:00 Famotidine (Pepcid) 20 mg Q24H PO Last administered on 06/22/18 20:58; Admin Dose 20 MG; Start 06/06/18 at 21:00 Digoxin (Digoxin) 0.0625 mg DAILY@1300 PO Last administered on 06/22/18 14:02; Admin Dose 0.0625 MG; Start 06/07/18 at 13:00 Furosemide (Lasix) 40 mg DAILY PO Last administered on 06/23/18 08:46; Admin Dose 40 MG; Start 06/07/18 at 09:00 Celecoxib (Celebrex) 100 mg BID PO Last administered on 06/23/18 08:46; Admin Dose 100 MG; Start 06/06/18 at 14:00 Epoetin Cal[place] (Epogen (Esrd)) 10,000 units MoWeFr@17 SC Last administered on 06/21/18 17:51; Admin Dose 10,000 UNITS; Start 06/07/18 at 17:00 Multivit/Ca Carb/ B Cmplx/FA/Prenat (Fany-Jose Luis) 1 tab DAILY PO Last administered on 06/23/18 08:46; Admin Dose 1 TAB; Start 06/08/18 at 09:00 Morphine Sulfate (morphine) 0.5 mg Q4 PRN IV SEVERE PAIN LEVEL 7-10 Last administered on 06/19/18 16:29; Admin Dose 0.5 MG; Start 06/08/18 at 22:30 Heparin Sodium (Porcine) (Heparin (1000 Units/ml)) 2,800 unit PRN PRN CATHETER DIALYSIS Last administered on 06/17/18 19:11; Admin Dose 6,100 UNIT; Start 06/09/18 at 16:30 Lidocaine (Lidoderm) 1 patch DAILY TD Last administered on 06/23/18 08:48; Admin Dose 1 PATCH; Start 06/11/18 at 11:00 Metoclopramide HCl (Reglan) 5 mg AC MEALS PO Last administered on 06/18/18 12:48; Admin Dose 5 MG; Start 06/11/18 at 11:30; Status Hold Ondansetron HCl (Zofran Inj) 4 mg Q6H PRN IV NAUSEA AND/OR VOMITING Last administered on 06/20/18 09:36; Admin Dose 4 MG; Start 06/12/18 at 15:30 Lisinopril (Zestril) 2.5 mg QHS PO Last administered on 06/22/18 21:00; Admin Dose 2.5 MG; Start 06/13/18 at 21:00 Lactulose (Enulose) 20 gm DAILY PRN PO CONSTIPATION Last administered on 06/20/18 05:42; Admin Dose 20 GM; Start 06/18/18 at 08:00 Docusate Sodium (Colace) 100 mg Q12H PO Last administered on 06/23/18 08:45; Admin Dose 100 MG; Start 06/19/18 at 07:00 Tamsulosin HCl (Flomax) 0.4 mg HS PO Last administered on 06/22/18 20:59; Admin Dose 0.4 MG; Start 06/19/18 at 21:00 Heparin Sodium (Porcine) (Heparin (1000 Units/ml)) 6,100 unit AFTER DIALYSIS CATHETER Last administered on 06/21/18 13:18; Admin Dose 6,100 UNIT; Start 06/19/18 at 16:00 Albumin Human 100 ml @ 100 mls/hr DURING DIALYSIS PRN IV BLOOD PRESSURE SUPPORT Last administered on 06/23/18 13:11; Admin Dose 100 MLS/HR; Start 06/21/18 at 11:00 AQUILINO ISLAS MD Jun 23, 2018 14:29
[2018-06-23] MEDS: HEPARIN 1000 UNITS/ML 10 ML INJ CATHETER SCH (15:17)
--- NOTE | 2018-06-23 19:47 | CONS ---
Date/Time of Note Date/Time of Note DATE: 06/23/18 TIME: 19:43 Consult Date/Type/Reason Admit Date/Time Jun 06, 2018 at 08:52 Initial Consult Date 06/08/18 Type of Consultation: Urology Reason for Consultation Gross hematuria Requesting Provider: RUTH VAZQUEZ MD Subjective The patient is resting comfortable. He has no pain.He is reported to be incontinent Objective Vital Signs Date Temp Pulse Resp B/P (MAP) Pulse Ox O2 O2 Flow FiO2 Time Delivery Rate 06/23/18 80 16:08 06/23/18 18 99 2.0 16:07 06/23/18 97.6 129/58 Nasal 15:52 (81) Cannula Intake and Output 06/22/18 06/22/18 06/23/18 1515:00 23:00 07:00 IntakeIntake Total 600 ml BalanceBalance 600 ml Exam The abdomen is soft, there is no tenderness in the bladder is not distended Results/Medications Result Diagram: 06/22/18 0527 06/23/18 1435 Results 24 hrs Laboratory Tests Test 06/23/18 04:55 06/23/18 14:35 Sodium Level 131 L 140 Potassium Level 4.8 3.2 L Chloride Level 89 L 99 # Carbon Dioxide Level 27 31 Anion Gap 15 H 10 # Blood Urea Nitrogen 70 H 27 #H Creatinine 6.07 H 2.21 #H Est Glomerular Filtrat Rate mL/min Glucose Level 98 107 Osmolality 293 Calcium Level 9.1 8.9 Total Bilirubin 0.1 L Direct Bilirubin 0.00 Indirect Bilirubin 0.1 Aspartate Amino Transf (AST/SGOT) 62 H Alanine Aminotransferase (ALT/SGPT) 33 Alkaline Phosphatase 351 H Total Protein 5.8 L Albumin 3.2 L Globulin 2.60 Albumin/Globulin Ratio 1.23 Medications Current Medications Acetaminophen (Tylenol Tab) 500 mg Q4H PRN PO MILD PAIN(1-3)OR ELEVATED TEMP Last administered on 06/09/18at 15:06; Admin Dose 500 MG; Start 06/06/18 at 11:00 Allopurinol (Zyloprim) 300 mg DAILY PO Last administered on 06/23/18at 08:46; Admin Dose 300 MG; Start 06/07/18 at 09:00 Aspirin (Aspirin) 81 mg DAILY PO Last administered on 06/23/18at 08:45; Admin Dose 81 MG; Start 06/06/18 at 11:00 Atorvastatin Calcium (Lipitor) 20 mg QHS PO Last administered on 06/22/18 20:58; Admin Dose 20 MG; Start 06/06/18 at 21:00 Calcium Carbonate (Oyster Shell Calcium) 0.5 gm BID PO Last administered on 06/23/18 08:45; Admin Dose 0.5 GM; Start 06/06/18 at 21:00 Clopidogrel Bisulfate (plaVIX) 75 mg DAILY PO Last administered on 06/23/18 08:44; Admin Dose 75 MG; Start 06/06/18 at 11:00 Isosorbide Mononitrate (Imdur) 120 mg DAILY PO Last administered on 06/23/18 08:45; Admin Dose 120 MG; Start 06/06/18 at 11:00 Metoprolol Tartrate (Lopressor) 25 mg BID PO Last administered on 06/23/18 08:46; Admin Dose 25 MG; Start 06/06/18 at 11:00 Tramadol HCl (Ultram) 50 mg Q6H PRN PO PAIN Last administered on 06/22/18 23:15; Admin Dose 50 MG; Start 06/06/18 at 11:00 IV Flush (NS 3 ml) 3 ml PER PROTOCOL IV ; Start 06/06/18 at 14:00 Lorazepam (Ativan) 0.5 mg Q8H PRN PO ANXIETY Last administered on 06/23/18 00:43; Admin Dose 0.5 MG; Start 06/06/18 at 14:00 Acetaminophen/ Hydrocodone Bitart ([place] (5/325)) 1 tab Q6H PRN PO PAIN LEVEL 4-6 Last administered on 06/21/18 03:04; Admin Dose 1 TAB; Start 06/06/18 at 14:00 Famotidine (Pepcid) 20 mg Q24H PO Last administered on 06/22/18 20:58; Admin Dose 20 MG; Start 06/06/18 at 21:00 Digoxin (Digoxin) 0.0625 mg DAILY@1300 PO Last administered on 06/22/18 14:02; Admin Dose 0.0625 MG; Start 06/07/18 at 13:00 Furosemide (Lasix) 40 mg DAILY PO Last administered on 06/23/18 08:46; Admin Dose 40 MG; Start 06/07/18 at 09:00 Celecoxib (Celebrex) 100 mg BID PO Last administered on 06/23/18 08:46; Admin Dose 100 MG; Start 06/06/18 at 14:00 Epoetin Calos (Epogen (Esrd)) 10,000 units MoWeFr@17 SC Last administered on 06/21/18 17:51; Admin Dose 10,000 UNITS; Start 06/07/18 at 17:00 Multivit/Ca Carb/ B Cmplx/FA/Prenat (Fany-Jose Luis) 1 tab DAILY PO Last administered on 06/23/18 08:46; Admin Dose 1 TAB; Start 06/08/18 at 09:00 Morphine Sulfate (morphine) 0.5 mg Q4 PRN IV SEVERE PAIN LEVEL 7-10 Last administered on 06/19/18 16:29; Admin Dose 0.5 MG; Start 06/08/18 at 22:30 Heparin Sodium (Porcine) (Heparin (1000 Units/ml)) 2,800 unit PRN PRN CATHETER DIALYSIS Last administered on 06/17/18 19:11; Admin Dose 6,100 UNIT; Start 06/09/18 at 16:30 Lidocaine (Lidoderm) 1 patch DAILY TD Last administered on 06/23/18 08:48; Admin Dose 1 PATCH; Start 06/11/18 at 11:00 Metoclopramide HCl (Reglan) 5 mg AC MEALS PO Last administered on 06/18/18 12:48; Admin Dose 5 MG; Start 06/11/18 at 11:30; Status Hold Ondansetron HCl (Zofran Inj) 4 mg Q6H PRN IV NAUSEA AND/OR VOMITING Last admini stered on 06/20/18 09:36; Admin Dose 4 MG; Start 06/12/18 at 15:30 Lisinopril (Zestril) 2.5 mg QHS PO Last administered on 06/22/18 21:00; Admin Dose 2.5 MG; Start 06/13/18 at 21:00 Lactulose (Enulose) 20 gm DAILY PRN PO CONSTIPATION Last administered on 06/20/18 05:42; Admin Dose 20 GM; Start 06/18/18 at 08:00 Docusate Sodium (Colace) 100 mg Q12H PO Last administered on 06/23/18 08:45; Admin Dose 100 MG; Start 06/19/18 at 07:00 Tamsulosin HCl (Flomax) 0.4 mg HS PO Last administered on 06/22/18at 20:59; Admin Dose 0.4 MG; Start 06/19/18 at 21:00 Heparin Sodium (Porcine) (Heparin (1000 Units/ml)) 6,100 unit AFTER DIALYSIS CATHETER Last administered on 06/23/18at 15:17; Admin Dose 6,100 UNIT; Start 06/19/18 at 16:00 Albumin Human 100 ml @ 100 mls/hr DURING DIALYSIS PRN IV BLOOD PRESSURE SUPPORT Last administered on 06/23/18 13:11; Admin Dose 100 MLS/HR; Start 06/21/18 at 11:00 Assessment/Plan Chief Complaint/Hosp Course 88-year-old with a history of end-stage renal disease on hemodialysis had gross hematuria. He was on bladder irrigation until the urine return was clear then the irrigation was stopped and the Llamas catheter was removed and the patient was able to urinate and the postvoid residual was not high. He did undergo p elvic ultrasound and the prevoid volume was:87ml. The post void volume was:14ml The bladder was partially distended. Bladder wall is mildly thickened with mildly trabeculated appearance. There is 1.7 x 1.7 cm soft tissue structure in the dependent portion of the urinary bladder without internal vascular flow, connected to the bladder base with a thin band. Prostate measures 2.9 x 2.4 x 3.9 cm (14.4 ml). With this finding of a mass in the bladder one has to rule out bladder tumor. I did discuss this finding with him and his daughter who was at his bedside on 06/22/2018. I showed her the pictures of the ultrasound and she took photos of these on her phone. We discussed the options of waiting and doing nothing and at a later date repeat the pelvic ultrasound. The risk from this is that if there is a bladder tumor the tumor could become larger and more aggressive. The other option is to do a cystoscopy and if there is a bladder tumor resect it. And to do that we will need to stop his anticoagulation and that will subject him to much higher cardiac events. Therefore it was decided to wait and he expressed his desire to do so and he will discuss it further with his daughter and his . For now continue same treatment HAI URIBE MD Jun 23, 2018 19:47
[2018-06-23] MEDS: TAMSULOSIN (SR) 0.4 MG CAP PO SCH (21:47)
[2018-06-23] MEDS: FAMOTIDINE 20 MG TAB PO SCH (21:47)
[2018-06-23] MEDS: ATORVASTATIN 20 MG TAB PO SCH (21:47)
[2018-06-23] MEDS: LISINOPRIL 5 MG TAB PO SCH (21:48)
[2018-06-24] VITALS (13 sets, daily range): BP systolic 124–154; BP diastolic 57–78; PULSE 59–91; RESP 18–20
[2018-06-24] MEDS: DOCUSATE SODIUM 100 MG CAP PO SCH ×2 (06:05→20:19)
[2018-06-24] MEDS: LIDOCAINE 5% PATCH TD SCH ×2 (09:00→11:07)
[2018-06-24] MEDS: CALCIUM CARBONATE 1.25 GM TAB PO SCH ×2 (09:19→20:20)
[2018-06-24] MEDS: ALLOPURINOL 300 MG TAB PO SCH (09:19)
[2018-06-24] MEDS: CELECOXIB 100 MG CAP PO SCH ×2 (09:19→20:19)
[2018-06-24] MEDS: CLOPIDOGREL 75 MG TAB PO SCH (09:21)
[2018-06-24] MEDS: ASPIRIN 81 MG TAB PO SCH (09:21)
[2018-06-24] MEDS: MULTIVIT/CA CARB/B CMPLX/FA TAB PO SCH (09:21)
[2018-06-24] MEDS: ISOSORBIDE MONONITRATE(SR)60 MG TAB PO SCH (09:22)
[2018-06-24] MEDS: FUROSEMIDE 40 MG TAB PO SCH (09:22)
[2018-06-24] MEDS: METOPROLOL 25 MG TAB PO SCH ×2 (09:23→20:20)
--- NOTE | 2018-06-24 09:53 | CONS ---
Date/Time of Note Date/Time of Note DATE: 06/24/18 TIME: 09:46 Assessment/Plan Assessment/Plan Hospital Course 1. End-stage renal disease on maintenance hemodialysis. He is due for hemodialysis tomorrow. This will get him back on his Sunday dialysis schedule. 2. Altered mental status with some episodes of confusion. He is less responsive today. I have discontinued some of his medications including primidone and baclofen. 3. Leukocytosis , etiology not clear , afebrile . White blood count is lower than yesterday. 4. Thrombosed left upper arm AV fistula. He now has a right femoral Ministerio catheter for dialysis. 5. Anemia of chronic kidney disease 6. Urinary retention with Llamas catheter out now . He does have a bladder mass on pelvic ultrasound. Urology is evaluating this mass. 7. Dysphasia . He did not show aspiration on the barium swallow. Result Diagram: 06/24/18 0455 06/24/18 0455 Results 24hrs Laboratory Tests Test 06/23/18 14:35 06/24/18 04:55 Sodium Level 140 134 L Potassium Level 3.2 L 4.5 Chloride Level 99 # 95 L Carbon Dioxide Level 31 25 Anion Gap 10 # 14 H Blood Urea Nitrogen 27 #H 68 #H Creatinine 2.21 #H 5.19 #H Est Glomerular Filtrat Rate mL/min Glucose Level 107 104 Calcium Level 8.9 9.0 White Blood Count 11.8 H Red Blood Count 2.95 L Hemoglobin 8.4 L Hematocrit 26.4 L Mean Corpuscular Volume 89.5 Mean Corpuscular Hemoglobin 28.5 L Mean Corpuscular Hemoglobin Concent 31.8 L Red Cell Distribution Width 14.6 H Platelet Count 286 Mean Platelet Volume 10.2 Immature Granulocytes % 4.500 H Neutrophils % 77.0 Lymphocytes % 4.2 L Monocytes % 10.1 Eosinophils % 3.4 Basophils % 0.8 Nucleated Red Blood Cells % 0.0 Immature Granulocytes # 0.530 H Neutrophils # 9.1 H Lymphocytes # 0.5 L Monocytes # 1.2 H Eosinophils # 0.4 Basophils # 0.1 Nucleated Red Blood Cells # 0.0 Total Bilirubin 0.2 Direct Bilirubin 0.00 Indirect Bilirubin 0.2 Aspartate Amino Transf (AST/SGOT) 54 H Alanine Aminotransferase (ALT/SGPT) 34 Alkaline Phosphatase 355 H Total Protein 5.9 L Albumin 3.3 Globulin 2.60 Albumin/Globulin Ratio 1.26 Consultation Date/Type/Reason Admit Date/Time Jun 06, 2018 at 08:52 Initial Consult Date 06/08/18 Type of Consult Nephrology Requesting Provider: RUTH VAZQUEZ MD 24 HR Interval Summary Free Text/Dictation Will is lethargic. He is unresponsive. He does have some tremor which is intermittent. He is not responding to my commands. Subjective hx not possible: pt non-verbal Constitutional: no complaints Exam/Review of Systems Vital Signs Vitals Vital Signs Date Temp Pulse Resp B/P (MAP) Pulse Ox O2 O2 Flow FiO2 Time Delivery Rate 06/24/18 87 09:09 06/24/18 98.0 20 132/60 97 07:20 (84) 06/23/18 Nasal 3.0 19:59 Cannula Intake and Output 06/23/18 06/23/18 06/24/18 1414:59 22:59 06:59 IntakeIntake Total 400 ml 250 ml 600 ml OutputOutput Total 1600 ml BalanceBalance -1200 ml 250 ml 600 ml Exam Constitutional: non-verbal Psych: confusion Respiratory: congested cough, diminished breath sounds Cardiovascular: regular rate and rhythm Gastrointestinal: soft, non-tender Musculoskeletal: nl extremities to inspection Medications Medications Current Medications Acetaminophen (Tylenol Tab) 500 mg Q4H PRN PO MILD PAIN(1-3)OR ELEVATED TEMP Last administered on 06/09/18at 15:06; Admin Dose 500 MG; Start 06/06/18 at 11:00 Allopurinol (Zyloprim) 300 mg DAILY PO Last administered on 06/24/18 09:19; Admin Dose 300 MG; Start 06/07/18 at 09:00 Aspirin (Aspirin) 81 mg DAILY PO Last administered on 06/24/18 09:21; Admin Dose 81 MG; Start 06/06/18 at 11:00 Atorvastatin Calcium (Lipitor) 20 mg QHS PO Last administered on 06/23/18at 21:47; Admin Dose 20 MG; Start 06/06/18 at 21:00 Calcium Carbonate (Oyster Shell Calcium) 0.5 gm BID PO Last administered on 06/24/18 09:19; Admin Dose 0.5 GM; Start 06/06/18 at 21:00 Clopidogrel Bisulfate (plaVIX) 75 mg DAILY PO Last administered on 06/24/18 09:21; Admin Dose 75 MG; Start 06/06/18 at 11:00 Isosorbide Mononitrate (Imdur) 120 mg DAILY PO Last administered on 06/24/18 09:22; Admin Dose 120 MG; Start 06/06/18 at 11:00 Metoprolol Tartrate (Lopressor) 25 mg BID PO Last administered on 06/24/18 09:23; Admin Dose 25 MG; Start 06/06/18 at 11:00 Tramadol HCl (Ultram) 50 mg Q6H PRN PO PAIN Last administered on 06/22/18 23:15; Admin Dose 50 MG; Start 06/06/18 at 11:00 IV Flush (NS 3 ml) 3 ml PER PROTOCOL IV ; Start 06/06/18 at 14:00 Lorazepam (Ativan) 0.5 mg Q8H PRN PO ANXIETY Last administered on 06/23/18 23:50; Admin Dose 0.5 MG; Start 06/06/18 at 14:00 Acetaminophen/ Hydrocodone Bitart ([place] (5/325)) 1 tab Q6H PRN PO PAIN LEVEL 4-6 Last administered on 06/21/18 03:04; Admin Dose 1 TAB; Start 06/06/18 at 14:00 Famotidine (Pepcid) 20 mg Q24H PO Last administered on 06/23/18 21:47; Admin Dose 20 MG; Start 06/06/18 at 21:00 Digoxin (Digoxin) 0.0625 mg DAILY@1300 PO Last administered on 06/22/18 14:02; Admin Dose 0.0625 MG; Start 06/07/18 at 13:00 Furosemide (Lasix) 40 mg DAILY PO Last administered on 06/24/18 09:22; Admin Dose 40 MG; Start 06/07/18 at 09:00 Celecoxib (Celebrex) 100 mg BID PO Last administered on 06/24/18 09:19; Admin Dose 100 MG; Start 06/06/18 at 14:00 Epoetin Calos (Epogen (Esrd)) 10,000 units MoWeFr@17 SC Last administered on 06/21/18 17:51; Admin Dose 10,000 UNITS; Start 12/28/18 at 17:00 Multivit/Ca Carb/ B Cmplx/FA/Prenat (Fany-Jose Luis) 1 tab DAILY PO Last administered on 06/24/18 09:21; Admin Dose 1 TAB; Start 06/08/18 at 09:00 Morphine Sulfate (morphine) 0.5 mg Q4 PRN IV SEVERE PAIN LEVEL 7-10 Last administered on 06/19/18 16:29; Admin Dose 0.5 MG; Start 06/08/18 at 22:30 Heparin Sodium (Porcine) (Heparin (1000 Units/ml)) 2,800 unit PRN PRN CATHETER DIALYSIS Last administered on 06/17/18 19:11; Admin Dose 6,100 UNIT; Start 06/09/18 at 16:30 Lidocaine (Lidoderm) 1 patch DAILY TD Last administered on 06/23/18 08:48; Admin Dose 1 PATCH; Start 06/11/18 at 11:00 Metoclopramide HCl (Reglan) 5 mg AC MEALS PO Last administered on 06/18/18 1 2:48; Admin Dose 5 MG; Start 06/11/18 at 11:30; Status Hold Ondansetron HCl (Zofran Inj) 4 mg Q6H PRN IV NAUSEA AND/OR VOMITING Last administered on 06/20/18 09:36; Admin Dose 4 MG; Start 06/12/18 at 15:30 Lisinopril (Zestril) 2.5 mg QHS PO Last administered on 06/23/18 21:48; Admin Dose 2.5 MG; Start 06/13/18 at 21:00 Lactulose (Enulose) 20 gm DAILY PRN PO CONSTIPATION Last administered on 06/11 05:42; Admin Dose 20 GM; Start 06/18/18 at 08:00 Docusate Sodium (Colace) 100 mg Q12H PO Last administered on 06/23/18 08:45; Admin Dose 100 MG; Start 06/19/18 at 07:00 Tamsulosin HCl (Flomax) 0.4 mg HS PO Last administered on 06/23/18 21:47; Admin Dose 0.4 MG; Start 06/19/18 at 21:00 Heparin Sodium (Porcine) (Heparin (1000 Units/ml)) 6,100 unit AFTER DIALYSIS CATHETER Last administered on 1/13/19at 15:17; Admin Dose 6,100 UNIT; Start 06/19/18 at 16:00 Albumin Human 100 ml @ 100 mls/hr DURING DIALYSIS PRN IV BLOOD PRESSURE SUPPORT Last administered on 06/23/18at 13:11; Admin Dose 100 MLS/HR; Start 06/21/18 at 11:00 DEMARCUS CHING MD Jun 24, 2018 09:53
[2018-06-24] MEDS: DIGOXIN 0.125 MG TAB PO SCH (13:08)
[2018-06-24] MEDS: EPOETIN 10000 UNITS/1 ML INJ (ESRD) SC SCH (16:55)
--- NOTE | 2018-06-24 17:22 | PN ---
Date/Time of Note Date/Time of Note DATE: 06/24/18 TIME: 17:17 Assessment/Plan VTE Prophylaxis Risk score (from Ns)>0 risk: 11 SCD applied (from Ns): Yes Pharmacological prophylaxis: NA/contraindicated Pharm contraindication: bleeding Lines/Catheters IV C[facility]ter [facility]from [facility]): CORNELL CATH Urinary Cath still in place: No Assessment/Plan Result Diagram: 06/24/18 0455 06/24/18 0455 Results 24hrs Laboratory Tests Test 06/24/18 04:55 White Blood Count 11.8 H Red Blood Count 2.95 L Hemoglobin 8.4 L Hematocrit 26.4 L Mean Corpuscular Volume 89.5 Mean Corpuscular Hemoglobin 28.5 L Mean Corpuscular Hemoglobin Concent 31.8 L Red Cell Distribution Width 14.6 H Platelet Count 286 Mean Platelet Volume 10.2 Immature Granulocytes % 4.500 H Neutrophils % 77.0 Lymphocytes % 4.2 L Monocytes % 10.1 Eosinophils % 3.4 Basophils % 0.8 Nucleated Red Blood Cells % 0.0 Immature Granulocytes # 0.530 H Neutrophils # 9.1 H Lymphocytes # 0.5 L Monocytes # 1.2 H Eosinophils # 0.4 Basophils # 0.1 Nucleated Red Blood Cells # 0.0 Sodium Level 134 L Potassium Level 4.5 Chloride Level 95 L Carbon Dioxide Level 25 Anion Gap 14 H Blood Urea Nitrogen 68 #H Creatinine 5.19 #H Est Glomerular Filtrat Rate mL/min Glucose Level 104 Calcium Level 9.0 Total Bilirubin 0.2 Direct Bilirubin 0.00 Indirect Bilirubin 0.2 Aspartate Amino Transf (AST/SGOT) 54 H Alanine Aminotransferase (ALT/SGPT) 34 Alkaline Phosphatase 355 H Total Protein 5.9 L Albumin 3.3 Globulin 2.60 Albumin/Globulin Ratio 1.26 Subjective 24 Hr Interval Summary Free Text/Dictation intermittent confusion, but able to focuw on conversation and identify family visitors. slow drop in hgb, no active bleeding, but morris is out has been accepted to ARU,will faciliate transfer. family at bedside. i spoke with patient about the fact that there is a mass in his bladder that may need surgery. he is unable to make that decision now.also discussed with family the persistent confusion is worrisome, but treatment options limited. abd is soft, no edema, lungs clear, skin ok will tx to aru. Constitutional: disoriented Exam/Review of Systems Vital Signs Vitals Vital Signs Date Temp Pulse Resp B/P (MAP) Pulse Ox O2 O2 Flow FiO2 Time Delivery Rate 06/24/18 79 16:31 06/24/18 98.5 18 145/78 98 15:37 (100) 06/24/18 Nasal 3.0 08:10 Cannula Intake and Output 06/23/18 06/23/18 06/24/18 1515:00 23:00 07:00 IntakeIntake Total 400 ml 250 ml 600 ml OutputOutput Total 1600 ml BalanceBalance -1200 ml 250 ml 600 ml Medications Medications Current Medications Acetaminophen (Tylenol Tab) 500 mg Q4H PRN PO MILD PAIN(1-3)OR ELEVATED TEMP Last administered on 06/09/18 15:06; Admin Dose 500 MG; Start 06/06/18 at 11:00 Allopurinol (Zyloprim) 300 mg DAILY PO Last administered on 06/24/18 09:19; Admin Dose 300 MG; Start 06/07/18 at 09:00 Aspirin (Aspirin) 81 mg DAILY PO Last administered on 06/24/18 09:21; Admin Dose 81 MG; Start 06/06/18 at 11:00 Atorvastatin Calcium (Lipitor) 20 mg QHS PO Last administered on 06/23/18 21:47; Admin Dose 20 MG; Start 06/06/18 at 21:00 Calcium Carbonate (Oyster Shell Calcium) 0.5 gm BID PO Last administered on 06/24/18 09:19; Admin Dose 0.5 GM; Start 06/06/18 at 21:00 Clopidogrel Bisulfate (plaVIX) 75 mg DAILY PO Last administered on 06/24/18 09:21; Admin Dose 75 MG; Start 06/06/18 at 11:00 Isosorbide Mononitrate (Imdur) 120 mg DAILY PO Last administered on 06/24/18 09:22; Admin Dose 120 MG; Start 06/06/18 at 11:00 Metoprolol Tartrate (Lopressor) 25 mg BID PO Last administered on 06/24/18 09:23; Admin Dose 25 MG; Start 06/06/18 at 11:00 Tramadol HCl (Ultram) 50 mg Q6H PRN PO PAIN Last administered on 06/22/18 23:15; Admin Dose 50 MG; Start 06/06/18 at 11:00 IV Flush (NS 3 ml) 3 ml PER PROTOCOL IV ; Start 06/06/18 at 14:00 Lorazepam (Ativan) 0.5 mg Q8H PRN PO ANXIETY Last administered on 06/23/18 23:50; Admin Dose 0.5 MG; Start 06/06/18 at 14:00 Acetaminophen/ Hydrocodone Bitart ([place] (5/325)) 1 tab Q6H PRN PO PAIN LEVEL 4-6 Last administered on 06/21/18 03:04; Admin Dose 1 TAB; Start 06/06/18 at 14:00 Famotidine (Pepcid) 20 mg Q24H PO Last administered on 06/23/18 21:47; Admin Dose 20 MG; Start 06/06/18 at 21:00 Digoxin (Digoxin) 0.0625 mg DAILY@1300 PO Last administered on 06/24/18 13:08; Admin Dose 0.0625 MG; Start 06/07/18 at 13:00 Furosemide (Lasix) 40 mg DAILY PO Last administered on 06/24/18 09:22; Admin Dose 40 MG; Start 06/07/18 at 09:00 Celecoxib (Celebrex) 100 mg BID PO Last administered on 06/24/18 09:19; Admin Dose 100 MG; Start 06/06/18 at 14:00 Epoetin Calos (Epogen (Esrd)) 10,000 units MoWeFr@17 SC Last administered on 06/24/18 16:55; Admin Dose 10,000 UNITS; Start 06/07/18 at 17:00 Multivit/Ca Carb/ B Cmplx/FA/Prenat (Fany-Jose Luis) 1 tab DAILY PO Last administered on 06/24/18 09:21; Admin Dose 1 TAB; Start 06/08/18 at 09:00 Morphine Sulfate (morphine) 0.5 mg Q4 PRN IV SEVERE PAIN LEVEL 7-10 Last administered on 06/19/18 16:29; Admin Dose 0.5 MG; Start 06/08/18 at 22:30 Heparin Sodium (Porcine) (Heparin (1000 Units/ml)) 2,800 unit PRN PRN CATHETER DIALYSIS Last administered on 06/17/18 19:11; Admin Dose 6,100 UNIT; Start 06/09/18 at 16:30 Lidocaine (Lidoderm) 1 patch DAILY TD Last administered on 06/24/18 11:07; Admin Dose 1 PATCH; Start 06/11/18 at 11:00 Metoclopramide HCl (Reglan) 5 mg AC MEALS PO Last administered on 06/18/18 12:48; Admin Dose 5 MG; Start 06/11/18 at 11:30; Status Hold Ondansetron HCl (Zofran Inj) 4 mg Q6H PRN IV NAUSEA AND/OR VOMITING Last administered on 06/20/18 09:36; Admin Dose 4 MG; Start 06/12/18 at 15:30 Lisinopril (Zestril) 2.5 mg QHS PO Last administered on 06/23/18 21:48; Admin Dose 2.5 MG; Start 06/13/18 at 21:00 Lactulose (Enulose) 20 gm DAILY PRN PO CONSTIPATION Last administered on 06/20/18 05:42; Admin Dose 20 GM; Start 06/18/18 at 08:00 Docusate Sodium (Colace) 100 mg Q12H PO Last administered on 06/23/18 08:45; Admin Dose 100 MG; Start 06/19/18 at 07:00 Tamsulosin HCl (Flomax) 0.4 mg HS PO Last administered on 06/23/18 21:47; Admin Dose 0.4 MG; Start 06/19/18 at 21:00 Heparin Sodium (Porcine) (Heparin (1000 Units/ml)) 6,100 unit AFTER DIALYSIS CATHETER Last administered on 06/23/18 15:17; Admin Dose 6,100 UNIT; Start 06/19/18 at 16:00 Albumin Human 100 ml @ 100 mls/hr DURING DIALYSIS PRN IV BLOOD PRESSURE SUPPORT Last administered on 06/23/18 13:11; Admin Dose 100 MLS/HR; Start 06/21/18 at 11:00 MELLO SAUER MD Jun 24, 2018 17:22
[2018-06-24] MEDS: traMADol 50 MG TAB PO PRN (17:32)
--- NOTE | 2018-06-24 19:26 | DS ---
DATE OF ADMISSION: 06/06/2018 DATE OF DISCHARGE: 06/24/2018 CHIEF COMPLAINT: Fall and hematuria. FINAL DIAGNOSES: 1. Hematuria, probably secondary to bladder mass. 2. Acute on myocardial infarction, slowly better without specific intervention. 3. End-stage renal disease. 4. Hypertension. 5. Hyperlipidemia. 6. Established coronary artery disease. 7. Peripheral vascular disease. 8. Prostatic hypertrophy. 9. History of transient ischemic attack. 10. Chronic tremor. 11. Hyperuricemia. HOSPITAL COURSE: This is an 88-year-old man transferred from home after a fall. He was trapped in h is bathroom for a while and not able to get up. Finally brought by the paramedics. Was found to hav e hematuria, and he was found to have elevated troponin levels and probably suffered an HI. He was s een by his usual geotechnical department manager, Dr. Briscoe. Family and Cardiology both felt that conservative care was indicated and that is what has been done. He has been placed on aspirin and clopidogrel. He is to continue with his hemodialysis under the care of Dr. Ching and staff. The problem is that he has been intermittently confused and agitated despite some reduction in medication. His cardiac sta tus seems to be stable. Hematuria persisted with large clots in his urine and his bladder. Was seen by Dr. Uribe. Ultimately was found to have, by ultrasound, a probable bladder mass, and he and hi s family are considering an intervention in that situation. He continues to remain quite weak and pastor s not really been able to get up very much until the last day or 2. Prior to this, he was ambulating at home with a walker. The patient has been accepted to ____ unit. He is being transferred today. Usual medications will be continued, and we will follow him as well. Dictated By: MELLO SAUER MD SR/NTS Conf#: [id number] DID#: [id number] CC: CAIO JOHN MD; MELLO SAUER MD; ELIZA BRISCOE MD; HAI URIBE MD; TERRANCE FLYNN MD ; RUTH VAZQUEZ MD; DEMARCUS CHING MD;*End*
[2018-06-24] MEDS: ATORVASTATIN 20 MG TAB PO SCH (20:19)
[2018-06-24] MEDS: TAMSULOSIN (SR) 0.4 MG CAP PO SCH (20:19)
[2018-06-24] MEDS: FAMOTIDINE 20 MG TAB PO SCH (20:20)
[2018-06-24] MEDS: LISINOPRIL 5 MG TAB PO SCH (20:21)
== END 2018-06-24 23:12 | DRG 280 ==
LOC: E/R 06:08 → 6WM 08:52 → ICU 06-09 10:26 → 6WM 06-10 18:49
PROVIDERS: ADMIT Internal Medicine; ATTEND Internal Medicine
PROC: 5A1D70Z Performance of Urinary Filtration, Intermittent, Less than 6 Hours Per Day (ICD-10-PCS; 2018-06-07)
PROC: 0TCB7ZZ Extirpation of Matter from Bladder, Via Natural or Artificial Opening (ICD-10-PCS; 2018-06-08)
PROC: 0T9B70Z Drainage of Bladder with Drainage Device, Via Natural or Artificial Opening (ICD-10-PCS; 2018-06-08)
PROC: 06HM33Z Insertion of Infusion Device into Right Femoral Vein, Percutaneous Approach (ICD-10-PCS; 2018-06-09)
PROC: 02H633Z Insertion of Infusion Device into Right Atrium, Percutaneous Approach (ICD-10-PCS; 2018-06-14)
PROC: 06PYX3Z Removal of Infusion Device from Lower Vein, External Approach (ICD-10-PCS; 2018-06-14)
PROC: 0JHL3XZ Insertion of Tunneled Vascular Access Device into Right Upper Leg Subcutaneous Tissue and Fascia, Percutaneous Approach (ICD-10-PCS; principal; 2018-06-14 07:30)
DX: T82.868A Thrombosis due to vascular prosthetic devices, implants and grafts, initial encounter (principal); N18.6 End stage renal disease; I21.4 Non-ST elevation (NSTEMI) myocardial infarction; I50.23 Acute on chronic systolic (congestive) heart failure; I13.2 Hypertensive heart and chronic kidney disease with heart failure and with stage 5 chronic kidney disease, or end stage renal disease; E87.1 Hypo-osmolality and hyponatremia; E87.5 Hyperkalemia; D63.1 Anemia in chronic kidney disease; E78.5 Hyperlipidemia, unspecified; I25.5 Ischemic cardiomyopathy; I25.10 Atherosclerotic heart disease of native coronary artery without angina pectoris; I48.0 Paroxysmal atrial fibrillation; I73.9 Peripheral vascular disease, unspecified; J44.9 Chronic obstructive pulmonary disease, unspecified; M54.9 Dorsalgia, unspecified; M10.9 Gout, unspecified; N32.89 Other specified disorders of bladder; N40.0 Benign prostatic hyperplasia without lower urinary tract symptoms; R31.0 Gross hematuria; R53.1 Weakness; R25.1 Tremor, unspecified; R41.82 Altered mental status, unspecified; R13.10 Dysphagia, unspecified; R63.0 Anorexia; Z68.28 Body mass index [BMI] 28.0-28.9, adult; Z99.2 Dependence on renal dialysis; Z95.1 Presence of aortocoronary bypass graft; Z95.5 Presence of coronary angioplasty implant and graft; Z87.891 Personal history of nicotine dependence; Z86.73 Personal history of transient ischemic attack (TIA), and cerebral infarction without residual deficits; Z79.02 Long term (current) use of antithrombotics/antiplatelets; Z79.82 Long term (current) use of aspirin
CPT/HCPCS: 36600; 70450; 71045; 72100; 74176; 74230; 76856; 80048; 80053; 80061; 80076; 80162; 80202; 81001; 82550; 82553; 82728; 82803; 82962; 83540; 83605; 83735; 83880; 83930; 84100; 84132; 84153; 84154; 84484; 85014; 85018; 85025; 85610; 85651; 85730; 87040; 87081; 87086; 87340; 88104; 88107; 90935; 92526; 92610; 92611; 93005; 93306; 94640; 94664; 97110; 97116; 97163; 97164; 97530; J0690; J1170; J1644; J1815; J1940; J1956; J2250; J2270; J2405; J3010; J3370; P9047; Q4081; Q9967

== ENCOUNTER 2018-06-24 21:30 | Inpatient (IN) | payer MEDICARE, BC ==
[~2018-06-24] VITALS: Ht 177.8 cm; Wt 99.0 kg
[~2018-06-24 21:30] MED LIST changes: +ACET-141 PO; -ASPI-831 PO; +ASPI-903 PO; +CALC500T91 PO; -CALC667C PO; +DIGO125T19 PO; +ISOS120T15 PO; -ISOS30TA67 PO; -METO-335 PO; +METO25TA4 PO; -NEPH PO; +TRAM50TA PO; -TRAM50TA2 PO
[2018-06-25] VITALS (16 sets, daily range): BP systolic 127–155; BP diastolic 62–74; PULSE 74–90; RESP 18–19; Ht 177.8 cm; Wt 99.0 kg
--- NOTE | 2018-06-25 | NUR ---
Admission Note Admitted an 88 y/o male pt from Telemetry department via bed with male transport- Jomar. Pt came in the unit at 2320. Pt was put in room 4419 A. Px appears calm. He is confused. A&O X 1 to 2. He is on O2 inhalation at 3 LPM via NC. Pt has peripheral IV access on right arm and Ministerio cath on right groin. He has bruises on BUE and blanchable redness on sacrococcygeal part. Photos taken. Allevyn are present on bilateral heels for protection. Wet cough is prevalent during assessment. VS are as follows BP= 143/91, AZ= 83, RR= 20, T= 98.5, O2sat= 93%. will continue to monitor
[2018-06-25] MEDS ORDERED: FAMOTIDINE 20 MG TAB PO SCH (01:13)
[2018-06-25] MEDS ORDERED: ALBUMIN HUMAN 25% 100 ML IV PRN (01:13)
[2018-06-25] MEDS ORDERED: HEPARIN 1000 UNITS/ML 10 ML INJ CATHETER SCH (01:13)
[2018-06-25] MEDS ORDERED: DOCUSATE SODIUM 100 MG CAP PO SCH ×2 (01:13→09:00)
[2018-06-25] MEDS ORDERED: traMADol 50 MG TAB PO PRN (01:13)
[2018-06-25] MEDS ORDERED: LACTULOSE 30ML CUP PO PRN ×2 (01:13→06:00)
[2018-06-25] MEDS ORDERED: HEPARIN 1000 UNITS/ML 10 ML INJ CATHETER PRN (01:13)
[2018-06-25] MEDS ORDERED: ACETAMINOPHEN 500 MG TAB PO PRN (01:13)
[2018-06-25] MEDS ORDERED: BISACODYL 10 MG SUPP PR PRN (06:00)
--- NOTE | 2018-06-25 06:30 | NUR ---
End of Shift Note During the shift, no complaints made. Pt was confused and always taking his O2 inhalation off. Bed on lowest position, side rails up 2x, bed alarm on, and call light within reach. will continue to monitor. Endorsed to AM shift nurse.
[2018-06-25] MEDS: ALLOPURINOL 300 MG TAB PO SCH (09:16)
[2018-06-25] MEDS: MULTIVIT/CA CARB/B CMPLX/FA TAB PO SCH (09:16)
[2018-06-25] MEDS: METOCLOPRAMIDE 5 MG TAB PO SCH ×3 (09:16→17:48)
[2018-06-25] MEDS: ISOSORBIDE MONONITRATE(SR)60 MG TAB PO SCH (09:16)
[2018-06-25] MEDS: CELECOXIB 100 MG CAP PO SCH ×2 (09:16→21:43)
[2018-06-25] MEDS: CLOPIDOGREL 75 MG TAB PO SCH (09:16)
[2018-06-25] MEDS: ASPIRIN 81 MG TAB PO SCH (09:17)
[2018-06-25] MEDS: METOPROLOL 25 MG TAB PO SCH ×2 (09:17→21:43)
[2018-06-25] MEDS: DOCUSATE SODIUM 100 MG CAP PO SCH ×2 (09:17→21:43)
[2018-06-25] MEDS: FUROSEMIDE 40 MG TAB PO SCH (09:19)
[2018-06-25] MEDS: LIDOCAINE 5% PATCH TD SCH (09:19)
[2018-06-25] MEDS: HYDROCODONE/APAP (5/325) TAB PO PRN (09:55)
--- NOTE | 2018-06-25 11:38 | NUR ---
Paged Dr. Panda and left message with the office to notify regarding the patient lab result. awaiting to call back.
--- NOTE | 2018-06-25 13:00 | CONS ---
DATE OF ADMISSION: 06/24/2018 DATE OF CONSULTATION: 06/25/2018 REHABILITATION POST-ADMISSION PHYSICIAN EVALUATION REHABILITATION IMPAIRMENT CATEGORY: Toxic metabolic encephalopathy. ACTIVE COMORBIDITIES: 1. Critical illness myopathy. 2. End-stage renal disease on hemodialysis. 3. Coronary artery disease, status post non-ST elevation myocardial infarction. 4. Pneumonia. 5. Dysphagia, on dysphagia soft diet. 6. 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 7. Hypertension. 8. Chronic heart failure. 9. Atrial fibrillation. 10. Impairments in self-care, mobility and cognition. HISTORY OF PRESENT ILLNESS: The patient is a pleasant 88-year-old gentleman with a history of multip le medical comorbidities including end-stage renal disease on dialysis, hypertension, coronary artery disease and atrial fibrillation, who was admitted after a ground level fall in the bathroom. The pa tient apparently had been wedged in between the toilet and the bathtub for a few hours. The patient was complaining of back pain and patient was noted to have a probable non-ST elevation MS. The [facility]'s hospital course also notable for hypoxia and confusion with a presumed toxic metabolic encephalo letitia. The patient also noted to have significant weakness as compared to baseline, presumed seconda ry to critical illness myopathy. The patient has been cleared to transfer to the rehabilitation unit for comprehensive interdisciplinary rehab care. FUNCTIONAL HISTORY: Prior to recent events, the patient was independent in self-care tasks and mobil ity. Currently, patient requires max to total assist for self-care and mobility tasks. I have reviewed the preadmission screen and patient's current functional status is consistent with e preadmission screen. FAMILY AND SOCIAL HISTORY: The patient lives at home with family and hopes to return there upon disc harge. PAST MEDICAL HISTORY: 1. End-stage renal disease on hemodialysis. 2. Coronary artery disease. 3. Paroxysmal atrial fibrillation. 4. Hyperlipidemia. 5. Hypertension. 6. History of tremor. 7. Cardiomyopathy. CURRENT MEDICATIONS: 1. Aspirin 81 mg p.o. daily. 2. Lipitor 20 mg p.o. at bedtime. 3. Oyster shell calcium 0.5 mg p.o. b.i.d. 4. Celebrex 100 mg p.o. b.i.d. 5. Plavix 75 mg p.o. daily. 6. Digoxin 0.0625 mg p.o. daily. 7. Colace 100 mg p.o. b.i.d. 8. Epogen subcu Sunday, Sunday, Sunday. 9. Pepcid 20 mg p.o. daily. 10. Lasix 40 mg p.o. daily. 11. [place] p.r.n. 12. Imdur 120 mg p.o. daily. 13. Lidoderm patch topically. 14. Zestril 2.5 mg p.o. daily. 15. Ativan p.r.n. 16. Reglan 5 mg p.o. before meals. 17. Lopressor 25 mg p.o. b.i.d. 18. Fany-Jose Luis 1 tab p.o. daily. 19. Ultram p.r.n. 20. Flomax 0.4 mg p.o. at bedtime. ALLERGIES: PENICILLIN. PHYSICAL EXAMINATION: VITAL SIGNS: He is currently afebrile with stable vital signs. HEENT: The extraocular motions appear intact. Oropharynx clear. NECK: Supple. LUNGS: Clear anteriorly. CARDIAC: S1, S2. ABDOMEN: Soft, nontender, positive bowel sounds. NEUROLOGIC: He is arousable. He will follow simple 1-step commands. He has perseveration to tasks. He is oriented to person only. He demonstrates antigravity strength in bilateral upper extremity, 3- strength in bilateral lower extremities. PLAN: The patient has been admitted for comprehensive interdisciplinary acute rehab and is anticipat ed to tolerate 3 hours of daily therapy in divided doses for at least 5/7 days a week. The treatment plan will include: 1. Physical therapy to focus on bed mobility, transfers, and wheelchair mobility in addition to limi sav household ambulation with the goal of having the patient reach a min assist level. 2. Occupational therapy to focus on hygiene, grooming, dressing, bathing, and toileting activities w ith the goal of having patient reach a min assist level. 3. Neuropsychological assessment with the goal of having the patient received full cognitive evaluat ion and oversight of memory aids and cognitive retraining. 4. Speech therapy for full cognitive assessment in addition to dysphagia management with the goal of having the patient meet nutritional needs by mouth. 5. Rehabilitation nursing for carryover of therapeutic interventions, the goal of continent of bowel and bladder, and the goal of patient and family education with regard to the aforementioned issues. ESTIMATED LENGTH OF STAY: 14 days. DISPOSITION GOAL: Home with family. REHABILITATION BARRIER: End-stage renal disease. INTERVENTION FOR BARRIER: Hemodialysis per renal. I acknowledge that I performed a full physical ex amination on this patient within 24 hours of admission to the rehabilitation unit. I believe the ankit ient is a good candidate for comprehensive interdisciplinary rehab care and is anticipated to make re asonable goals in a reasonable period of time as outlined above. Dictated By: CARO RENEE MD LY/NTS Conf#: [id number] DID#: [id number] CC: CARO RENEE MD;*EndCC*
[2018-06-25] MEDS: DIGOXIN 0.125 MG TAB PO SCH (13:28)
--- NOTE | 2018-06-25 14:18 | CONS ---
DATE OF ADMISSION: 06/24/2018 DATE OF CONSULTATION: TYPE OF CONSULTATION: Renal. REASON FOR CONSULTATION: End-stage renal disease. HISTORY OF PRESENT ILLNESS: This 88-year-old man is well known to me. I have followed this patient for at least 5 years. He initially was seen by me for chronic kidney disease. His chronic kidney di sease progressed to end-stage renal disease and he is now on maintenance hemodialysis. He usually di alyzes at the [facility] dialysis unit Sunday, and Sunday. The patient is now transfer red to the rehabilitation floor in [facility]. He was initially admitted several w eeks ago after he had a ground level fall off the commode in the bathroom. He was in the bathroom fo r a few hours. He was noted to have a non-ST elevation [place] with elevated cardiac enzymes. The patien t then developed hypoxia, confusion and was presumed to have metabolic encephalopathy. The patient i s now transferred to acute rehab unit with a diagnosis of critical illness myopathy. The patient is awake and alert today. He says he is feeling better. His appetite has returned. He is due for dial ysis today. PAST MEDICAL HISTORY: Remarkable for: 1. End-stage renal disease on maintenance hemodialysis. 2. Dysphagia. 3. Urinary retention and urinary bladder mass. 4. History of hypertension. 5. Atherosclerotic heart disease. 6. Previous left upper arm AV fistula, which is now not working. 7. Right femoral catheter which is being used for dialysis. 8. Paroxysmal atrial fibrillation. 9. Cardiomyopathy. PHYSICAL EXAMINATION: GENERAL: At this time reveals an ill-appearing man in no apparent distress. He is awake and alert a nd conversing. VITAL SIGNS: Temperature 98, pulse of 90, respirations 18, blood pressure 132/62, O2 saturation of 9 0% on 3-liter nasal cannula. HEENT: Head is normocephalic. Eyes: Extraocular muscles are intact. Nose and mouth are normal. NECK: Supple. No neck vein distention. LUNGS: Clear to auscultation. HEART: Regular rhythm. No murmurs, gallops or rubs. ABDOMEN: Soft, nontender. EXTREMITIES: No peripheral edema. He has a right femoral dialysis catheter. IMPRESSION: 1. End-stage renal disease on maintenance hemodialysis. He usually dialyzes Sunday, and S and today being Sunday he is due for dialysis. 2. Metabolic encephalopathy. This seems to be clearing some as he is much more awake today than he has been over the last few weeks. 3. Coronary artery disease. 4. History of hypertension. 5. Failed left upper arm AV fistula for hemodialysis. PLAN: 1. Hemodialysis treatment today. 2. Start comprehensive rehabilitation program. 3. Consult Dr. Slater for placing an internal jugular PermCath until a new permanent AV fistula can b e created. 4. I will follow the patient along with you. Dictated By: DEMARCUS CHING MD ND/NTS Conf#: [id number] DID#: [id number] CC: CARO RENEE MD; MELLO SAUER MD;*End*
--- NOTE | 2018-06-25 14:43 | NUR ---
PT EVALUATION: A 88 yo male s/p fall at home while trying to get up from the toilet. Per report, did not hit head and no LOC but c/o LBP, lumbar imaging was negative. Cardiology consulted and assessed for probable NSTEMI. Pt subsequently developed hypoxia and confusion, was transferred to ICU then Telemetry. Pt seen by vascular surgeon found to have Lt arm AVF occlusion, s/p femoral PermCath placement. PMH: ESRD on HD, hyperlipidemia, CAD, PCI and CABG, systolic CHF, PVD, A-Fib, prostatic hypertrophy, TIA, tremors. Now transferred to [facility] for continuation of care and rehab. Pt is alert but not oriented, agreeable to PT eval with max encouragement, cleared by RN. PLOF: unable to obtain, pt confused and poor historian. CLOF: see tech record. Educ on POC, safety, role of PT, sequencing with poor understanding. 2PA for safety. Highly resistive at times. Followed simple commands less than 25% of the time with repetition. Precautions: fall risk, confused, 2PA for safety Recommendations: DME TBA, home with HHPT and 24hr assistance. STG: Bed Mobility Max A Transfers Max A with least restrictive device WC mobility Max A 25ft LTG: Bed Mobility Mod A Transfers Mod A with least restrictive device WC mobility Min A 50ft
--- NOTE | 2018-06-25 14:47 | NUR ---
Dr. Begum came and seen patient. Notified regarding the lab result today. stated patient will have Dialysis today and will help the Potassium 5.3 and made aware of Elevated WBC. no new orders.
--- NOTE | 2018-06-25 14:53 | NUR ---
Attempted bedside swallow evaluation and cognitive linguistic evaluation on three attempts. Unable to arouse to safe level for PO trials. Did not benefit from tactile prompts on lips. Pt unable to independently sustain arousal for more than 15 seconds for complete cognitive evaluation. Required continuous verbal and tactile prompting (incl. sternal and nail bed rub) to remain awake and responsive. Unable to complete BIMS, however was able to respond to question to orient to type of building. Max prompting and repetitions required to provide name and birthday. Unable to follow 1 step instructions with modeling and tactile prompting. Did not benefit from presence of spouse/ daughter in law during first attempt to increase participation. Unable to repeat 3 words. Further assessment to be completed during next treatment session.
--- NOTE | 2018-06-25 15:00 | NUR ---
Shan OWEN notified of the Chest X ray result. Addendum: 06/25/18 at 1501 by JANETH ESPAÑA RN ERROR. WRONG PATIENT
--- NOTE | 2018-06-25 18:17 | HP ---
Date/Time of Note Date/Time of Note DATE: 06/25/18 TIME: 18:12 Assessment/Plan VTE Prophylaxis Risk score (from [facility])>0 risk: 5 SCD applied (from [facility]): No SCD contraindicated: low risk/ambulating Pharmacological prophylaxis: heparin Lines/Catheters Urinary Cath still in place: No Assessment/Plan Problems: (1) Conjunctivitis Status: Acute Comment: Romycin eyedrops Qualifiers: Conjunctivitis type: acute Acute conjunctivitis type: unspecified Laterality: left Qualified Codes: H10.32 - Unspecified acute conjunctivitis, left eye (2) CAD (coronary artery disease) Status: Chronic Comment: Fortunately quiescent although he is recently status post NSTEMI Qualifiers: Coronary Disease-Associated Artery/Lesion type: [place] artery [place] vs. transplanted heart: [place] heart Associated angina: with unstable angina Qualified Codes: I25.110 - Atherosclerotic heart disease of [place] coronary artery with unstable angina pectoris (3) Hypertension Status: Chronic Comment: Controlled at this time Qualifiers: Hypertension type: essential hypertension Qualified Codes: I10 - Essential (primary) hypertension (4) Hyperlipidemia Status: Chronic Comment: On statin therapy Qualifiers: Hyperlipidemia type: pure hypercholesterolemia Qualified Codes: E78.00 - Pure hypercholesterolemia, unspecified (5) Hyperuricemia Status: Chronic Comment: On treatment (6) Osteoarthritis, multiple sites Status: Chronic Comment: For acute rehabilitation Qualifiers: Osteoarthritis type: primary Qualified Codes: M15.0 - Primary generalized (osteo)arthritis (7) Venous stenosis of left upper extremity Status: Acute Comment: Noted. (8) Systolic CHF with reduced left ventricular function, NYHA class 3 Status: Chronic Comment: On treatment. (9) Peripheral vascular disease Status: Chronic Comment: Noted. (10) End stage renal disease Status: Chronic Comment: As per nephrology and dialysis Result Diagram: 06/25/18 0612 06/25/18 0612 Results 24hrs Laboratory Tests Test 06/25/18 06:12 06/25/18 14:00 White Blood Count 15.3 #H Red Blood Count 3.37 L Hemoglobin 9.4 L Hematocrit 30.5 L Mean Corpuscular Volume 90.5 Mean Corpuscular Hemoglobin 27.9 L Mean Corpuscular Hemoglobin Concent 30.8 L Red Cell Distribution Width 14.7 H Platelet Count 357 # Mean Platelet Volume 9.8 Immature Granulocytes % 4.700 H Neutrophils % 76.1 Lymphocytes % 5.5 L Monocytes % 9.4 Eosinophils % 3.5 Basophils % 0.8 Nucleated Red Blood Cells % 0.0 Immature Granulocytes # 0.710 H Neutrophils # 11.6 H Lymphocytes # 0.8 Monocytes # 1.4 H Eosinophils # 0.5 Basophils # 0.1 Nucleated Red Blood Cells # 0.0 Sodium Level 137 Potassium Level 5.3 H Chloride Level 93 L Carbon Dioxide Level 24 Anion Gap 20 H Blood Urea Nitrogen 87 H Creatinine 6.44 H Est Glomerular Filtrat Rate mL/min Glucose Level 107 Calcium Level 9.5 Total Bilirubin 0.5 Direct Bilirubin 0.00 Indirect Bilirubin 0.5 Aspartate Amino Transf (AST/SGOT) 45 Alanine Aminotransferase (ALT/SGPT) 28 Alkaline Phosphatase 291 H Total Protein 6.7 Albumin 3.8 Globulin 2.90 Albumin/Globulin Ratio 1.31 Urine Color YELLOW Urine Clarity SLIGHTLY CLOUDY A Urine pH 5.0 Urine Specific [place] 1.011 Urine Ketones NEGATIVE Urine Nitrite NEGATIVE Urine Bilirubin NEGATIVE Urine Urobilinogen NEGATIVE Urine Leukocyte Esterase NEGATIVE Urine Microscopic RBC 42 H Urine Microscopic WBC 5 Urine Hemoglobin 3+ H Urine Glucose NEGATIVE Urine Total Protein 2+ H HPI/ROS Admit Date/Time Admit Date/Time Jun 24, 2018 at 21:30 Hx of Present Illness He [id number] male transferred from the inpatient facility [facility] to the acute rehabilitation unit for further rehabilitative care. ROS Constitutional: no complaints Eyes: redness (On the left I) ENT: no complaints Respiratory: no complaints Cardiovascular: no complaints Gastrointestinal: no complaints Genitourinary: no complaints PMH/Family/Social Past Medical History Medical History: congestive heart failure ([place] [employer] class III), coronary artery disease, high cholesterol, hypertension, other (Peripheral vascular disease; osteoarthritis; status post non-STEMI within the last month; BPH) Medications Current Medications Acetaminophen (Tylenol Tab) 500 mg Q4H PRN PO MILD PAIN(1-3)OR ELEVATED TEMP; Start 06/25/18 at 01:13 Allopurinol (Zyloprim) 300 mg DAILY PO Last administered on 06/25/18at 09:16; Admin Dose 300 MG; Start 06/25/18 at 01:13 Aspirin (Aspirin) 81 mg DAILY PO Last administered on 06/25/18at 09:17; Admin Dose 81 MG; Start 06/25/18 at 01:13 Atorvastatin Calcium (Lipitor) 20 mg QHS PO ; Start 06/25/18 at 01:13 Clopidogrel Bisulfate (plaVIX) 75 mg DAILY PO Last administered on 06/25/18 09:16; Admin Dose 75 MG; Start 06/25/18 at 01:13 Isosorbide Mononitrate (Imdur) 120 mg DAILY PO Last administered on 06/25/18 09:16; Admin Dose 120 MG; Start 06/25/18 at 01:13 Metoprolol Tartrate (Lopressor) 25 mg BID PO Last administered on 06/25/18 09:17; Admin Dose 25 MG; Start 06/25/18 at 01:13 Tramadol HCl (Ultram) 50 mg Q6H PRN PO PAIN; Start 06/25/18 at 01:13 Lorazepam (Ativan) 0.5 mg Q8H PRN PO ANXIETY; Start 06/25/18 at 01:13 Acetaminophen/ Hydrocodone Bitart ([place] (5/325)) 1 tab Q6H PRN PO PAIN LEVEL 4-6 Last administered on 06/25/18 09:55; Admin Dose 1 TAB; Start 06/25/18 at 01:13 Digoxin (Digoxin) 0.0625 mg DAILY@1300 PO Last administered on 06/25/18 13:28; Admin Dose 0.0625 MG; Start 06/25/18 at 01:13 Furosemide (Lasix) 40 mg DAILY PO Last administered on 06/25/18 09:19; Admin Dose 40 MG; Start 06/25/18 at 01:13 Celecoxib (Celebrex) 100 mg BID PO Last administered on 06/25/18 09:16; Admin Dose 100 MG; Start 06/25/18 at 01:13 Epoetin [place] (Epogen (Esrd)) 10,000 units MoWeFr@17 SC ; Start 06/25/18 at 01:13 Multivit/Ca Carb/ B Cmplx/FA/Prenat (Fany-Jose Luis) 1 tab DAILY PO Last administered on 06/25/18 09:16; Admin Dose 1 TAB; Start 06/25/18 at 01:13 Heparin Sodium (Porcine) (Heparin (1000 Units/ml)) 2,800 unit PRN PRN CATHETER DIALYSIS; Start 06/25/18 at 01:13 Lidocaine (Lidoderm) 1 patch DAILY TD Last administered on 06/25/18at 09:19; Admin Dose 1 PATCH; Start 06/25/18 at 01:13 Metoclopramide HCl (Reglan) 5 mg AC MEALS PO Last administered on 06/25/18at 17:48; Admin Dose 5 MG; Start 06/25/18 at 01:13 Lisinopril (Zestril) 2.5 mg QHS PO ; Start 06/25/18 at 01:13 Lactulose (Enulose) 20 gm DAILY PRN PO CONSTIPATION; Start 06/25/18 at 01:13 Tamsulosin HCl (Flomax) 0.4 mg HS PO ; Start 06/25/18 at 01:13 Heparin Sodium (Porcine) (Heparin (1000 Units/ml)) 6,100 unit AFTER DIALYSIS CATHETER ; Start 06/25/18 at 01:13 Albumin Human 100 ml @ 100 mls/hr DURING DIALYSIS PRN IV BLOOD PRESSURE SUPPORT; Start 06/25/18 at 01:13 Docusate Sodium (Colace) 100 mg Q12H PO Last administered on 06/25/18at 09:17; Admin Dose 100 MG; Start 06/25/18 at 09:00 Famotidine (Pepcid) 20 mg Q24H PO ; Start 06/25/18 at 21:00 Docusate Sodium (Colace) 100 mg BID PO ; Start 06/25/18 at 09:00 Senna (Senokot) 1 tab HS PO ; Start 06/25/18 at 21:00 Lactulose (Enulose) 20 gm DAILY PRN PO CONSTIPATION; Start 06/25/18 at 06:00 Bisacodyl (Dulcolax Supp) 10 mg DAILY PRN VA CONSTIPATION; Start 06/25/18 at 06:00 Acetaminophen (Tylenol Tab) 650 mg Q4H PRN PO PAIN; Start 06/25/18 at 06:00 Influenza Virus Vaccine Quadrival (Fluzone) 0.5 ml ONCE ONCE IM* ; Start 06/26/18 at 10:00; Stop 06/26/18 at 10:01 Coded Allergies: Penicillins (Unverified Allergy, Severe, ANAPHYLACTIC, 06/06/18) Past Surgical History Past Surgical Hx: coronary bypass surgery, other Family History Significant Family History: heart disease, hypertension Social History Alcohol Use: rarely Smoking Status: Former smoker Drug Use: none Exam/Review of Systems Vital Signs Vitals Vital Signs Date Temp Pulse Resp B/P (MAP) Pulse Ox O2 O2 Flow FiO2 Time Delivery Rate 06/25/18 98.5 84 18 137/70 90 Nasal 3.0 14:00 (92) Cannula Intake and Output 06/24/18 06/24/18 06/25/18 1515:00 23:00 07:00 IntakeIntake Total 100 ml BalanceBalance 100 ml Exam Constitutional: alert, oriented Eyes: other (Conjunctivitis OS) ENMT: nl external ears & nose, nl lips & teeth, nl nasal mucosa & septum, mucosa pink and moist Neck: supple, non-tender Respiratory: clear to auscultation, normal air movement Cardiovascular: regular rate and rhythm, nl pulses Gastrointestinal: soft, nl liver, spleen, non-tender Musculoskeletal: nl extremities to inspection, nl gait and stance RUTH VAZQUEZ MD Jun 25, 2018 18:17
--- NOTE | 2018-06-25 18:21 | NUR ---
Patient is alert and breathing even. No SOB. patient c/o pain on back. PRN norco given with helped. patient looks lethargic this am but suddenly woke and ate his breakfast. came to visit patient and stated that his baseline. sometime he is hard to wake up when he is asleep. Patient with episode of getting up in bed. redirected patient and speak to in a calm manner. patient with episode of confusion. reoriented as needed. Patient on schedule for dialysis.
[2018-06-25] MEDS: SENNA TAB PO SCH (21:41)
[2018-06-25] MEDS: LISINOPRIL 5 MG TAB PO SCH (21:42)
[2018-06-25] MEDS: ATORVASTATIN 20 MG TAB PO SCH (21:42)
[2018-06-25] MEDS: TAMSULOSIN (SR) 0.4 MG CAP PO SCH (21:43)
[2018-06-25] MEDS: FAMOTIDINE 20 MG TAB PO SCH (21:43)
[2018-06-25] MEDS: TOBRAMYCIN 0.3% 5 ML OPH BOTH EYES SCH (21:44)
[2018-06-26 00:10] VITALS: BP_SYST 134; BP_SYST 136; BP_DIAS 57; BP_DIAS 58; PULSE 76; PULSE 77; RESP 18
--- NOTE | 2018-06-26 00:45 | NUR ---
Hemodialysis done Hemodialysis done to the pt. Output was 1500 ml per dialysis nurse.
[2018-06-26 01:49] VITALS: BP 148/63; PULSE 81; RESP 18
[2018-06-26] MEDS: HYDROCODONE/APAP (5/325) TAB PO PRN ×2 (05:53→15:37)
--- NOTE | 2018-06-26 07:00 | NUR ---
End of Shift Note During the shift at 0200. Pt woke up asking for food. Apple sauce and peaches offered. Pt ate well. Pt is a bit better regarding orientation. He was also given pain reliever and it was effective. Pt slept well. Bed on lowest position, side rails up 2x, bed alarm on and call light within reach. will continue to monitor
[2018-06-26 07:30] VITALS: BP 130/62; PULSE 83; RESP 20
[2018-06-26] MEDS: CELECOXIB 100 MG CAP PO SCH ×2 (08:47→21:38)
[2018-06-26] MEDS: CLOPIDOGREL 75 MG TAB PO SCH (08:47)
[2018-06-26] MEDS: TOBRAMYCIN 0.3% 5 ML OPH BOTH EYES SCH ×4 (08:47→21:37)
[2018-06-26] MEDS: METOCLOPRAMIDE 5 MG TAB PO SCH ×3 (08:47→18:16)
[2018-06-26] MEDS: ALLOPURINOL 300 MG TAB PO SCH (08:47)
[2018-06-26] MEDS: MULTIVIT/CA CARB/B CMPLX/FA TAB PO SCH (08:47)
[2018-06-26] MEDS: DOCUSATE SODIUM 100 MG CAP PO SCH ×2 (08:47→21:38)
[2018-06-26] MEDS: ISOSORBIDE MONONITRATE(SR)60 MG TAB PO SCH (08:47)
[2018-06-26] MEDS: METOPROLOL 25 MG TAB PO SCH ×2 (08:48→21:40)
[2018-06-26] MEDS: LIDOCAINE 5% PATCH TD SCH (08:48)
[2018-06-26] MEDS: ASPIRIN 81 MG TAB PO SCH (08:48)
[2018-06-26] MEDS: FUROSEMIDE 40 MG TAB PO SCH (08:48)
--- NOTE | 2018-06-26 12:57 | PN ---
Date/Time of Note Date/Time of Note DATE: 06/26/18 TIME: 12:55 Assessment/Plan VTE Prophylaxis Risk score (from Nsg)>0 risk: 4 SCD applied (from Nsg): Yes Pharmacological prophylaxis: NA/contraindicated Pharm contraindication: low risk/ambulating, bleeding Lines/Catheters Urinary Cath still in place: No Assessment/Plan Result Diagram: 06/25/18 0612 06/25/18 0612 Results 24hrs Laboratory Tests Test 06/25/18 14:00 Urine Color YELLOW Urine Clarity SLIGHTLY CLOUDY A Urine pH 5.0 Urine Specific [place] 1.011 Urine Ketones NEGATIVE Urine Nitrite NEGATIVE Urine Bilirubin NEGATIVE Urine Urobilinogen NEGATIVE Urine Leukocyte Esterase NEGATIVE Urine Microscopic RBC 42 H Urine Microscopic WBC 5 Urine Hemoglobin 3+ H Urine Glucose NEGATIVE Urine Total Protein 2+ H Subjective 24 Hr Interval Summary Free Text/Dictation general weakness rom mult causes...now in aru, up to chair, participating with pt esrd, on hd, will need permanent access line hematuria, bladder mass, to follw for mow is alert, lungs sound clear, no edema labs stable, still mild leukocytosis Musculoskeletal: back pain Exam/Review of Systems Vital Signs Vitals Vital Signs Date Temp Pulse Resp B/P (MAP) Pulse Ox O2 O2 Flow FiO2 Time Delivery Rate 06/26/18 Nasal 3.0 08:00 Cannula 06/26/18 98.7 83 20 130/62 92 07:30 (84) Intake and Output 06/25/18 06/25/18 06/26/18 1515:00 23:00 07:00 IntakeIntake Total 1780 ml OutputOutput Total 800 ml 1900 ml BalanceBalance 980 ml -1900 ml Medications Medications Current Medications Acetaminophen (Tylenol Tab) 500 mg Q4H PRN PO MILD PAIN(1-3)OR ELEVATED TEMP; Start 06/25/18 at 01:13 Allopurinol (Zyloprim) 300 mg DAILY PO Last administered on 06/26/18at 08:47; Admin Dose 300 MG; Start 06/25/18 at 01:13 Aspirin (Aspirin) 81 mg DAILY PO Last administered on 06/26/18at 08:48; Admin Dose 81 MG; Start 06/25/18 at 01:13 Atorvastatin Calcium (Lipitor) 20 mg QHS PO Last administered on 06/25/18at 21:42; Admin Dose 20 MG; Start 06/25/18 at 01:13 Clopidogrel Bisulfate (plaVIX) 75 mg DAILY PO Last administered on 06/26/18 08:47; Admin Dose 75 MG; Start 06/25/18 at 01:13 Isosorbide Mononitrate (Imdur) 120 mg DAILY PO Last administered on 06/26/18 08:47; Admin Dose 120 MG; Start 06/25/18 at 01:13 Metoprolol Tartrate (Lopressor) 25 mg BID PO Last administered on 06/26/18 08:48; Admin Dose 25 MG; Start 06/25/18 at 01:13 Tramadol HCl (Ultram) 50 mg Q6H PRN PO PAIN; Start 06/25/18 at 01:13 Lorazepam (Ativan) 0.5 mg Q8H PRN PO ANXIETY; Start 06/25/18 at 01:13 Acetaminophen/ Hydrocodone Bitart ([place] (5/325)) 1 tab Q6H PRN PO PAIN LEVEL 4-6 Last administered on 06/26/18 05:53; Admin Dose 1 TAB; Start 06/25/18 at 01:13 Digoxin (Digoxin) 0.0625 mg DAILY@1300 PO Last administered on 06/25/18 13:28; Admin Dose 0.0625 MG; Start 06/25/18 at 01:13 Furosemide (Lasix) 40 mg DAILY PO Last administered on 06/26/18 08:48; Admin Dose 40 MG; Start 06/25/18 at 01:13 Celecoxib (Celebrex) 100 mg BID PO Last administered on 06/26/18 08:47; Admin Dose 100 MG; Start 06/25/18 at 01:13 Epoetin Calos (Epogen (Esrd)) 10,000 units MoWeFr@17 SC ; Start 06/25/18 at 01:13 Multivit/Ca Carb/ B Cmplx/FA/Prenat (Fany-Jose Luis) 1 tab DAILY PO Last administered on 06/26/18 08:47; Admin Dose 1 TAB; Start 06/25/18 at 01:13 Heparin Sodium (Porcine) (Heparin (1000 Units/ml)) 2,800 unit PRN PRN CATHETER DIALYSIS; Start 06/25/18 at 01:13 Lidocaine (Lidoderm) 1 patch DAILY TD Last administered on 06/26/18 08:48; Admin Dose 1 PATCH; Start 06/25/18 at 01:13 Metoclopramide HCl (Reglan) 5 mg AC MEALS PO Last administered on 06/26/18 08:47; Admin Dose 5 MG; Start 06/25/18 at 01:13 Lisinopril (Zestril) 2.5 mg QHS PO Last administered on 06/25/18 21:42; Admin Dose 2.5 MG; Start 06/25/18 at 01:13 Lactulose (Enulose) 20 gm DAILY PRN PO CONSTIPATION; Start 06/25/18 at 01:13 Tamsulosin HCl (Flomax) 0.4 mg HS PO Last administered on 06/25/18 21:43; Admin Dose 0.4 MG; Start 06/25/18 at 01:13 Heparin Sodium (Porcine) (Heparin (1000 Units/ml)) 6,100 unit AFTER DIALYSIS CATHETER Last administered on 06/26/18 00:44; Admin Dose 6,100 UNIT; Start 06/25/18 at 01:13 Albumin Human 100 ml @ 100 mls/hr DURING DIALYSIS PRN IV BLOOD PRESSURE SUPPORT; Start 06/25/18 at 01:13 Docusate Sodium (Colace) 100 mg Q12H PO Last administered on 06/26/18 08:47; Admin Dose 100 MG; Start 06/25/18 at 09:00 Famotidine (Pepcid) 20 mg Q24H PO Last administered on 06/25/18 21:43; Admin Dose 20 MG; Start 06/25/18 at 21:00 Senna (Senokot) 1 tab HS PO Last administered on 06/25/18 21:41; Admin Dose 1 TAB; Start 06/25/18 at 21:00 Lactulose (Enulose) 20 gm DAILY PRN PO CONSTIPATION; Start 06/25/18 at 06:00 Bisacodyl (Dulcolax Supp) 10 mg DAILY PRN [place] CONSTIPATION; Start 06/25/18 at 06:00 Acetaminophen (Tylenol Tab) 650 mg Q4H PRN PO PAIN; Start 06/25/18 at 06:00 Tobramycin Sulfate (Tobrex 0.3% Oph Drop) 1 drop QID BOTH EYES Last administered on 06/26/18 08:47; Admin Dose 1 DROP; Start 06/25/18 at 21:00; Stop 07/02/18 at 20:59 MELLO SAUER MD Jun 26, 2018 12:57
--- NOTE | 2018-06-26 13:09 | PN ---
Date/Time of Note Date/Time of Note DATE: 06/26/18 TIME: 13:08 Subjective No new complaints Objective Vital Signs Date Temp Pulse Resp B/P (MAP) Pulse Ox O2 O2 Flow FiO2 Time Delivery Rate 06/26/18 Nasal 3.0 08:00 Cannula 06/26/18 98.7 83 20 130/62 92 07:30 (84) Intake and Output 06/25/18 06/25/18 06/26/18 1515:00 23:00 07:00 IntakeIntake Total 1780 ml OutputOutput Total 800 ml 1900 ml BalanceBalance 980 ml -1900 ml Exam pulm-cta max x 2 transfer Results/Medications Result Diagram: 06/25/1812 06/25/18 0612 Results 24 hrs Laboratory Tests Test 06/25/18 14:00 Urine Color YELLOW Urine Clarity SLIGHTLY CLOUDY A Urine pH 5.0 Urine Specific [place] 1.011 Urine Ketones NEGATIVE Urine Nitrite NEGATIVE Urine Bilirubin NEGATIVE Urine Urobilinogen NEGATIVE Urine Leukocyte Esterase NEGATIVE Urine Microscopic RBC 42 H Urine Microscopic WBC 5 Urine Hemoglobin 3+ H Urine Glucose NEGATIVE Urine Total Protein 2+ H Medications Current Medications Acetaminophen (Tylenol Tab) 500 mg Q4H PRN PO MILD PAIN(1-3)OR ELEVATED TEMP; Start 06/25/18 at 01:13 Allopurinol (Zyloprim) 300 mg DAILY PO Last administered on 06/26/18 08:47; Admin Dose 300 MG; Start 06/25/18 at 01:13 Aspirin (Aspirin) 81 mg DAILY PO Last administered on 06/26/18 08:48; Admin Dose 81 MG; Start 06/25/18 at 01:13 Atorvastatin Calcium (Lipitor) 20 mg QHS PO Last administered on 06/25/18at 21:42; Admin Dose 20 MG; Start 06/25/18 at 01:13 Clopidogrel Bisulfate (plaVIX) 75 mg DAILY PO Last administered on 06/26/18 08:47; Admin Dose 75 MG; Start 06/25/18 at 01:13 Isosorbide Mononitrate (Imdur) 120 mg DAILY PO Last administered on 06/26/18 08:47; Admin Dose 120 MG; Start 06/25/18 at 01:13 Metoprolol Tartrate (Lopressor) 25 mg BID PO Last administered on 06/26/18 08:48; Admin Dose 25 MG; Start 06/25/18 at 01:13 Tramadol HCl (Ultram) 50 mg Q6H PRN PO PAIN; Start 06/25/18 at 01:13 Lorazepam (Ativan) 0.5 mg Q8H PRN PO ANXIETY; Start 06/25/18 at 01:13 Acetaminophen/ Hydrocodone Bitart ([place] (5/325)) 1 tab Q6H PRN PO PAIN LEVEL 4-6 Last administered on 06/26/18 05:53; Admin Dose 1 TAB; Start 06/25/18 at 01:13 Digoxin (Digoxin) 0.0625 mg DAILY@1300 PO Last administered on 06/25/18 13:28; Admin Dose 0.0625 MG; Start 06/25/18 at 01:13 Furosemide (Lasix) 40 mg DAILY PO Last administered on 06/26/18 08:48; Admin Dose 40 MG; Start 06/25/18 at 01:13 Celecoxib (Celebrex) 100 mg BID PO Last administered on 06/26/18 08:47; Admin Dose 100 MG; Start 06/25/18 at 01:13 Epoetin Calos (Epogen (Esrd)) 10,000 units MoWeFr@17 SC ; Start 06/25/18 at 01:13 Multivit/Ca Carb/ B Cmplx/FA/Prenat (Fany-Jose Luis) 1 tab DAILY PO Last administered on 06/26/18 08:47; Admin Dose 1 TAB; Start 06/25/18 at 01:13 Heparin Sodium (Porcine) (Heparin (1000 Units/ml)) 2,800 unit PRN PRN CATHETER DIALYSIS; Start 06/25/18 at 01:13 Lidocaine (Lidoderm) 1 patch DAILY TD Last administered on 06/26/18 08:48; Admin Dose 1 PATCH; Start 06/25/18 at 01:13 Metoclopramide HCl (Reglan) 5 mg AC MEALS PO Last administered on 06/26/18 08:47; Admin Dose 5 MG; Start 06/25/18 at 01:13 Lisinopril (Zestril) 2.5 mg QHS PO Last administered on 06/25/18 21:42; Admin Dose 2.5 MG; Start 06/25/18 at 01:13 Lactulose (Enulose) 20 gm DAILY PRN PO CONSTIPATION; Start 06/25/18 at 01:13 Tamsulosin HCl (Flomax) 0.4 mg HS PO Last administered on 06/25/18at 21:43; Admin Dose 0.4 MG; Start 06/25/18 at 01:13 Heparin Sodium (Porcine) (Heparin (1000 Units/ml)) 6,100 unit AFTER DIALYSIS CATHETER Last administered on 06/26/18 00:44; Admin Dose 6,100 UNIT; Start 06/25/18 at 01:13 Albumin Human 100 ml @ 100 mls/hr DURING DIALYSIS PRN IV BLOOD PRESSURE SUPPORT; Start 06/25/18 at 01:13 Docusate Sodium (Colace) 100 mg Q12H PO Last administered on 06/26/18 08:47; Admin Dose 100 MG; Start 06/25/18 at 09:00 Famotidine (Pepcid) 20 mg Q24H PO Last administered on 06/25/18at 21:43; Admin Dose 20 MG; Start 06/25/18 at 21:00 Senna (Senokot) 1 tab HS PO Last administered on 06/25/18at 21:41; Admin Dose 1 TAB; Start 06/25/18 at 21:00 Lactulose (Enulose) 20 gm DAILY PRN PO CONSTIPATION; Start 06/25/18 at 06:00 Bisacodyl (Dulcolax Supp) 10 mg DAILY PRN [place] CONSTIPATION; Start 06/25/18 at 06:00 Acetaminophen (Tylenol Tab) 650 mg Q4H PRN PO PAIN; Start 06/25/18 at 06:00 Tobramycin Sulfate (Tobrex 0.3% Oph Drop) 1 drop QID BOTH EYES Last administered on 06/26/18 08:47; Admin Dose 1 DROP; Start 06/25/18 at 21:00; Stop 07/02/18 at 20:59 Assessment/Plan Additional Assessment/Plan rehab- Toxic metabolic encephalopathy;Critical illness myopathy. Increase activities as tolerated End-stage renal disease on hemodialysis. Coronary artery disease, status post non-ST elevation myocardial infarction. Pneumonia. Dysphagia, on dysphagia soft diet. 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 Hypertension. Chronic heart failure. Atrial fibrillation. CARO RENEE MD Jun 26, 2018 13:09
--- NOTE | 2018-06-26 13:25 | CONS ---
Date/Time of Note Date/Time of Note DATE: 06/26/18 TIME: 13:18 Assessment/Plan Assessment/Plan Hospital Course 1. End-stage renal disease on maintenance hemodialysis Sunday. He had a hemodialysis treatment yesterday and is due for a treatment tomorrow which I will order. 2. Metabolic encephalopathy , which seems to be improving. 3. leukocytosis. No clear etiology found for this. His white blood count is decreasing. He has been afebrile. 4. Coronary artery disease, recent NSTEMI 5. Critical illness myopathy 6. Paroxysmal atrial fibrillation 7. Anemia of chronic kidney disease Result Diagram: 06/25/18 0612 06/25/18 0612 Results 24hrs Laboratory Tests Test 06/25/18 14:00 Urine Color YELLOW Urine Clarity SLIGHTLY CLOUDY A Urine pH 5.0 Urine Specific [place] 1.011 Urine Ketones NEGATIVE Urine Nitrite NEGATIVE Urine Bilirubin NEGATIVE Urine Urobilinogen NEGATIVE Urine Leukocyte Esterase NEGATIVE Urine Microscopic RBC 42 H Urine Microscopic WBC 5 Urine Hemoglobin 3+ H Urine Glucose NEGATIVE Urine Total Protein 2+ H Consultation Date/Type/Reason Admit Date/Time Jun 24, 2018 at 21:30 Initial Consult Date Type of Consult Nephrology 24 HR Interval Summary Free Text/Dictation He is being seen in nephrologic follow-up. Mr. ware is awake and alert this morning. He is feeling better. He has no new complaints. Constitutional: no complaints, improved Exam/Review of Systems Vital Signs Vitals Vital Signs Date Temp Pulse Resp B/P (MAP) Pulse Ox O2 O2 Flow FiO2 Time Delivery Rate 06/26/18 Nasal 3.0 08:00 Cannula 06/26/18 98.7 83 20 130/62 92 07:30 (84) Intake and Output 06/25/18 06/25/18 06/26/18 1515:00 23:00 07:00 IntakeIntake Total 1780 ml OutputOutput Total 800 ml 1900 ml BalanceBalance 980 ml -1900 ml Exam Constitutional: alert, oriented, frail, obese Respiratory: clear to auscultation, normal air movement Cardiovascular: regular rate and rhythm Gastrointestinal: soft Musculoskeletal: nl extremities to inspection Medications Medications Current Medications Acetaminophen (Tylenol Tab) 500 mg Q4H PRN PO MILD PAIN(1-3)OR ELEVATED TEMP; Start 06/25/18 at 01:13 Allopurinol (Zyloprim) 300 mg DAILY PO Last administered on 06/26/18 08:47; Admin Dose 300 MG; Start 06/25/18 at 01:13 Aspirin (Aspirin) 81 mg DAILY PO Last administered on 06/26/18 08:48; Admin Dose 81 MG; Start 06/25/18 at 01:13 Atorvastatin Calcium (Lipitor) 20 mg QHS PO Last administered on 06/25/18 21:42; Admin Dose 20 MG; Start 06/25/18 at 01:13 Clopidogrel Bisulfate (plaVIX) 75 mg DAILY PO Last administered on 06/26/18 08:47; Admin Dose 75 MG; Start 06/25/18 at 01:13 Isosorbide Mononitrate (Imdur) 120 mg DAILY PO Last administered on 06/26/18 08:47; Admin Dose 120 MG; Start 06/25/18 at 01:13 Metoprolol Tartrate (Lopressor) 25 mg BID PO Last administered on 06/26/18 08:48; Admin Dose 25 MG; Start 06/25/18 at 01:13 Tramadol HCl (Ultram) 50 mg Q6H PRN PO PAIN; Start 06/25/18 at 01:13 Lorazepam (Ativan) 0.5 mg Q8H PRN PO ANXIETY; Start 06/25/18 at 01:13 Acetaminophen/ Hydrocodone Bitart ([place] (5/325)) 1 tab Q6H PRN PO PAIN LEVEL 4-6 Last administered on 06/26/18 05:53; Admin Dose 1 TAB; Start 06/25/18 at 01:13 Digoxin (Digoxin) 0.0625 mg DAILY@1300 PO Last administered on 06/25/18 13:28; Admin Dose 0.0625 MG; Start 06/25/18 at 01:13 Furosemide (Lasix) 40 mg DAILY PO Last administered on 06/26/18 08:48; Admin Dose 40 MG; Start 06/25/18 at 01:13 Celecoxib (Celebrex) 100 mg BID PO Last administered on 06/26/18 08:47; Admin Dose 100 MG; Start 06/25/18 at 01:13 Epoetin Calos (Epogen (Esrd)) 10,000 units MoWeFr@17 SC ; Start 06/25/18 at 01:13 Multivit/Ca Carb/ B Cmplx/FA/Prenat (Fany-Jose Luis) 1 tab DAILY PO Last administered on 06/26/18 08:47; Admin Dose 1 TAB; Start 06/25/18 at 01:13 Heparin Sodium (Porcine) (Heparin (1000 Units/ml)) 2,800 unit PRN PRN CATHETER DIALYSIS; Start 06/25/18 at 01:13 Lidocaine (Lidoderm) 1 patch DAILY TD Last administered on 06/26/18 08:48; Admin Dose 1 PATCH; Start 06/25/18 at 01:13 Metoclopramide HCl (Reglan) 5 mg AC MEALS PO Last administered on 06/26/18 08:47; Admin Dose 5 MG; Start 06/25/18 at 01:13 Lisinopril (Zestril) 2.5 mg QHS PO Last administered on 06/25/18 21:42; Admin Dose 2.5 MG; Start 06/25/18 at 01:13 Lactulose (Enulose) 20 gm DAILY PRN PO CONSTIPATION; Start 06/25/18 at 01:13 Tamsulosin HCl (Flomax) 0.4 mg HS PO Last administered on 06/25/18 21:43; Admin Dose 0.4 MG; Start 06/25/18 at 01:13 Heparin Sodium (Porcine) (Heparin (1000 Units/ml)) 6,100 unit AFTER DIALYSIS CATHETER Last administered on 06/26/18 00:44; Admin Dose 6,100 UNIT; Start 06/25/18 at 01:13 Albumin Human 100 ml @ 100 mls/hr DURING DIALYSIS PRN IV BLOOD PRESSURE SUPPORT; Start 06/25/18 at 01:13 Docusate Sodium (Colace) 100 mg Q12H PO Last administered on 06/26/18 08:47; Admin Dose 100 MG; Start 06/25/18 at 09:00 Famotidine (Pepcid) 20 mg Q24H PO Last administered on 06/25/18 21:43; Admin D ose 20 MG; Start 06/25/18 at 21:00 Senna (Senokot) 1 tab HS PO Last administered on 06/25/18 21:41; Admin Dose 1 TAB; Start 06/25/18 at 21:00 Lactulose (Enulose) 20 gm DAILY PRN PO CONSTIPATION; Start 06/25/18 at 06:00 Bisacodyl (Dulcolax Supp) 10 mg DAILY PRN [place] CONSTIPATION; Start 06/25/18 at 06:00 Acetaminophen (Tylenol Tab) 650 mg Q4H PRN PO PAIN; Start 06/25/18 at 06:00 Tobramycin Sulfate (Tobrex 0.3% Oph Drop) 1 drop QID BOTH EYES Last administered on 06/26/18at 08:47; Admin Dose 1 DROP; Start 06/25/18 at 21:00; Stop 07/02/18 at 20:59 DEMARCUS CHING MD Jun 26, 2018 13:25
[2018-06-26 14:00] VITALS: BP 114/53; PULSE 78; RESP 20
--- NOTE | 2018-06-26 15:22 | NUR ---
PT NOTE: [id number] Seen pt for therex. Pt asking for his cellphone. Looked everywhere in room, cellphone not seen (Clem CANTU aware). Pt unable to state if he had his cell phone prior to admission. Pt reported "My brother needs to call me." Clem CANTU provided pt with hospital phone. Noted dec motivation/self-limiting behavior, needing max VC's/encouragement to participate. Educated on importance of mobility and risks of prolonged bed rests with poor understanding. Educated on AP/SCD's to prevent DVTs; poor understanding.
[2018-06-26] MEDS: DIGOXIN 0.125 MG TAB PO SCH (15:37)
--- NOTE | 2018-06-26 18:03 | NUR ---
Patient is alert and breathing even with O2 at 3lpm. patient with episode of getting out of bed unassisted. redirected patient . speak to in a calm manner and explained the patient on how to use the call light. patient is confused. reoriented at needed. Patient with Right femoral groin permacath. no s/sx of infection. no bleeding on the site. call light within reach.
[2018-06-26] MEDS: EPOETIN 10000 UNITS/1 ML INJ (ESRD) SC SCH (18:16)
[2018-06-26 19:02] VITALS: BP 123/57; PULSE 87; RESP 20
[2018-06-26] MEDS: ATORVASTATIN 20 MG TAB PO SCH (21:38)
[2018-06-26] MEDS: SENNA TAB PO SCH (21:38)
[2018-06-26] MEDS: FAMOTIDINE 20 MG TAB PO SCH (21:39)
[2018-06-26] MEDS: LISINOPRIL 5 MG TAB PO SCH (21:39)
[2018-06-26] MEDS: TAMSULOSIN (SR) 0.4 MG CAP PO SCH (21:40)
--- NOTE | 2018-06-26 22:56 | CONS ---
DATE OF ADMISSION: 06/24/2018 DATE OF CONSULTATION: 06/26/2018 TYPE OF CONSULTATION: Psychological. REFERRING PHYSICIAN: Caro Franz MD. CONSULTING PSYCHOLOGIST: Rd Díaz, PhD. HISTORY OF PRESENT ILLNESS: The patient is an 88-year-old male. The patient has a history of multip le medical problems including end-stage renal disease and is on dialysis. The patient was declining and was admitted to the hospital when he complained of back pain and possible toxic metabolic encepha lopathy. The patient was cleared medically and transferred to acute rehabilitation unit for acute ltiple disciplinary rehabilitation. The patient is motivated to get better and is concerned about hi s present health condition. The patient was frustrated because he was having problems thinking that this is not something he felt like he normally had problems with. The patient is motivated to get be tter, but feels very weak at the present time. The patient was seen and was on oxygen and did say us ually has oxygen even at home at night. The patient was wanting to return to his previous level of f unctioning and return home. FAMILY AND SOCIAL HISTORY: The patient lives at home with family and does want to return there after discharge. He and his in a home in [place] and has 1-step to enter. MEDICATIONS: The patient is currently on Ativan 0.5 mg q.8 hours p.r.n. SUBSTANCE USE: The patient reports that he does not smoke. The patient reports he does not use alco hol or other drugs. MENTAL STATUS EXAMINATION: APPEARANCE: The patient was seen in his wheelchair. Appears to be of average height and weight. Th e patient was on oxygen. The patient is right-handed. BEHAVIOR: The patient was cooperative during the consultation. The patient did attempt to answer al l questions presented to him by the interviewer. The patient was confused and having difficulty with some of the questions. MOOD AND AFFECT: The patient's mood appears to be depressed. Affect does appear to be slightly anxi ous. PERCEPTION: The patient reports no hallucinations or delusions. The patient was alert to person, pl mónica, situation, but not exactly to time. MEMORY AND COGNITION: The patient's memory and cognition does have some impairment. He was unable t o name the hospital and unable to say the months. He did get the year correct. He was unable to say the vice president risk management, the governor of the [facility], or the mayor of the [facility]. He was unable to spell world forward or backward. He was able to do 2 serial 7 subtractions from 100 and made an error and could go no further. The patient does appear to have some cognitive dysfu nction at the present time, is not exactly clear as it might be likely related to his toxic metabolic encephalopathy or it could be the beginnings of an Alzheimer dementia. INTELLIGENCE: Intelligence appears to fall in the average range. INSIGHT: Fair. JUDGMENT: Fair. THOUGHT CONTENT: The patient is concerned about his present medical condition. The patient does wan t to return home after discharge. The patient is frustrated about his medical problems and his prese nt thinking problem. DISCUSSION: The patient can likely benefit from some cognitive/behavioral psychotherapy while he is on the unit. Psychotherapy would focus on his underlying level of frustration and some of his cognit pam deficits. He will also likely benefit from some cognitive retraining while on the unit and deali ng with recall memory through some memory book. DIAGNOSTIC IMPRESSION: 1. 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 2. F06.8, cognitive disorder, not otherwise specified. Thank you very much, Dr. Manju Franz, for referring this individual. Please do not hesitate to twin de león if you have additional questions. Dictated By: RD DÍAZ PHD MALAIKA/DARLENE Conf#: [id number] DID#: [id number] CC: MELLO SAUER MD; CARO FRANZ MD;*End*
[2018-06-27] VITALS (17 sets, daily range): BP systolic 131–168; BP diastolic 63–82; PULSE 73–87; RESP 18–20
--- NOTE | 2018-06-27 04:45 | NUR ---
Call [facility] dialysis center and spoke with Shawn regarding hemodialysis today after 3 pm, confirmation number [id number].
[2018-06-27] MEDS: METOCLOPRAMIDE 5 MG TAB PO SCH ×3 (07:05→17:05)
--- NOTE | 2018-06-27 07:58 | NUR ---
Pt slept on and off during night hours, Awake and alert to name only, confused most of the time, DNR. Pt is on o2 via NC 3 L/mt, Spo2 >95% maintained. Pt is oliguric, on Hemodialysis Sun//Sunday. No BM noted. Pt kept on fall and aspiration precaution, position turned Q2hrs as per turning schedule. Pt is on low air loss mattress. Pt try to get out of bed frequently due to confusion. Bed alarm activated for safety, call light and bedside table within reach.
[2018-06-27] MEDS: TOBRAMYCIN 0.3% 5 ML OPH BOTH EYES SCH ×4 (09:09→21:29)
[2018-06-27] MEDS: CLOPIDOGREL 75 MG TAB PO SCH (09:10)
[2018-06-27] MEDS: DOCUSATE SODIUM 100 MG CAP PO SCH ×2 (09:10→21:24)
[2018-06-27] MEDS: ASPIRIN 81 MG TAB PO SCH (09:10)
[2018-06-27] MEDS: MULTIVIT/CA CARB/B CMPLX/FA TAB PO SCH (09:10)
[2018-06-27] MEDS: ALLOPURINOL 300 MG TAB PO SCH (09:10)
[2018-06-27] MEDS: CELECOXIB 100 MG CAP PO SCH ×2 (09:10→21:24)
[2018-06-27] MEDS: FUROSEMIDE 40 MG TAB PO SCH (09:11)
[2018-06-27] MEDS: ISOSORBIDE MONONITRATE(SR)60 MG TAB PO SCH (09:11)
[2018-06-27] MEDS: METOPROLOL 25 MG TAB PO SCH ×2 (09:12→21:27)
[2018-06-27] MEDS: LIDOCAINE 5% PATCH TD SCH (09:17)
--- NOTE | 2018-06-27 10:39 | CONS ---
Date/Time of Note Date/Time of Note DATE: 06/27/18 TIME: 10:32 Assessment/Plan Assessment/Plan Hospital Course 1. End-stage renal disease on maintenance hemodialysis Sunday. He has hemodialysis ordered for today. 2. Metabolic encephalopathy , which seems to be improving. 3. leukocytosis. No clear etiology found for this. His white blood count is decreasing. He has been afebrile. 4. Coronary artery disease, recent NSTEMI 5. Critical illness myopathy . He seems to be getting stronger and is making progress with physical therapy. 6. Paroxysmal atrial fibrillation 7. Anemia of chronic kidney disease Result Diagram: 06/25/1861106/25/18611 Consultation Date/Type/Reason Admit Date/Time Jun 24, 2018 at 21:30 Initial Consult Date Type of Consult Nephrology 24 HR Interval Summary Free Text/Dictation He is being seen in nephrologic follow-up. Jared is awake and alert this morning. He feels like he is making progress. He is able to work with physical therapy. He is due for hemodialysis today. Constitutional: no complaints, improved Exam/Review of Systems Vital Signs Vitals Vital Signs Date Temp Pulse Resp B/P (MAP) Pulse Ox O2 O2 Flow FiO2 Time Delivery Rate 06/27/18 97.7 87 18 152/64 90 Room Air 3.0 07:00 (93) Intake and Output 06/26/18 06/26/18 06/27/18 1515:00 23:00 07:00 IntakeIntake Total 1460 ml 200 ml BalanceBalance 1460 ml 200 ml Exam Constitutional: alert, frail Psych: confusion Respiratory: clear to auscultation, normal air movement Cardiovascular: regular rate and rhythm Gastrointestinal: soft, non-tender Musculoskeletal: nl extremities to inspection Medications Medications Current Medications Acetaminophen (Tylenol Tab) 500 mg Q4H PRN PO MILD PAIN(1-3)OR ELEVATED TEMP; Start 06/25/18 at 01:13 Allopurinol (Zyloprim) 300 mg DAILY PO Last administered on 06/27/18at 09:10; Admin Dose 300 MG; Start 06/25/18 at 01:13 Aspirin (Aspirin) 81 mg DAILY PO Last administered on 06/27/18at 09:10; Admin Dose 81 MG; Start 06/25/18 at 01:13 Atorvastatin Calcium (Lipitor) 20 mg QHS PO Last administered on 06/26/18 21:38; Admin Dose 20 MG; Start 06/25/18 at 01:13 Clopidogrel Bisulfate (plaVIX) 75 mg DAILY PO Last administered on 06/27/18 09:10; Admin Dose 75 MG; Start 06/25/18 at 01:13 Isosorbide Mononitrate (Imdur) 120 mg DAILY PO Last administered on 06/27/18 09:11; Admin Dose 120 MG; Start 06/25/18 at 01:13 Metoprolol Tartrate (Lopressor) 25 mg BID PO Last administered on 06/27/18 09:12; Admin Dose 25 MG; Start 06/25/18 at 01:13 Tramadol HCl (Ultram) 50 mg Q6H PRN PO PAIN; Start 06/25/18 at 01:13 Lorazepam (Ativan) 0.5 mg Q8H PRN PO ANXIETY; Start 06/25/18 at 01:13 Acetaminophen/ Hydrocodone Bitart ([place] (5/325)) 1 tab Q6H PRN PO PAIN LEVEL 4-6 Last administered on 06/26/18 15:37; Admin Dose 1 TAB; Start 06/25/18 at 01:13 Digoxin (Digoxin) 0.0625 mg DAILY@1300 PO Last administered on 06/26/18 15:37; Admin Dose 0.0625 MG; Start 06/25/18 at 01:13 Furosemide (Lasix) 40 mg DAILY PO Last administered on 06/27/18 09:11; Admin Dose 40 MG; Start 06/25/18 at 01:13 Celecoxib (Celebrex) 100 mg BID PO Last administered on 06/27/18 09:10; Admin Dose 100 MG; Start 06/25/18 at 01:13 Epoetin Calos (Epogen (Esrd)) 10,000 units MoWeFr@17 SC Last administered on 06/26/18 18:16; Admin Dose 10,000 UNITS; Start 06/25/18 at 01:13 Multivit/Ca Carb/ B Cmplx/FA/Prenat (Fany-Jose Luis) 1 tab DAILY PO Last a dministered on 06/27/18 09:10; Admin Dose 1 TAB; Start 06/25/18 at 01:13 Heparin Sodium (Porcine) (Heparin (1000 Units/ml)) 2,800 unit PRN PRN CATHETER DIALYSIS; Start 06/25/18 at 01:13 Lidocaine (Lidoderm) 1 patch DAILY TD Last administered on 06/27/18at 09:17; Admin Dose 1 PATCH; Start 06/25/18 at 01:13 Metoclopramide HCl (Reglan) 5 mg AC MEALS PO Last administered on 06/26/18 18:16; Admin Dose 5 MG; Start 06/25/18 at 01:13 Lisinopril (Zestril) 2.5 mg QHS PO Last administered on 06/26/18 21:39; Admin Dose 2.5 MG; Start 06/25/18 at 01:13 Lactulose (Enulose) 20 gm DAILY PRN PO CONSTIPATION; Start 06/25/18 at 01:13 Tamsulosin HCl (Flomax) 0.4 mg HS PO Last administered on 06/26/18at 21:40; Admin Dose 0.4 MG; Start 06/25/18 at 01:13 Heparin Sodium (Porcine) (Heparin (1000 Units/ml)) 6,100 unit AFTER DIALYSIS CATHETER Last administered on 06/26/18at 00:44; Admin Dose 6,100 UNIT; Start 06/25/18 at 01:13 Albumin Human 100 ml @ 100 mls/hr DURING DIALYSIS PRN IV BLOOD PRESSURE SUPPO RT; Start 06/25/18 at 01:13 Docusate Sodium (Colace) 100 mg Q12H PO Last administered on 06/27/18at 09:10; Admin Dose 100 MG; Start 06/25/18 at 09:00 Famotidine (Pepcid) 20 mg Q24H PO Last administered on 06/26/18at 21:39; Admin Dose 20 MG; Start 06/25/18 at 21:00 Senna (Senokot) 1 tab HS PO Last administered on 06/26/18at 21:38; Admin Dose 1 TAB; Start 06/25/18 at 21:00 Lactulose (Enulose) 20 gm DAILY PRN PO CONSTIPATION; Start 06/25/18 at 06:00 Bisacodyl (Dulcolax Supp) 10 mg DAILY PRN [place] CONSTIPATION; Start 06/25/18 at 06:00 Acetaminophen (Tylenol Tab) 650 mg Q4H PRN PO PAIN; Start 06/25/18 at 06:00 Tobramycin Sulfate (Tobrex 0.3% Oph Drop) 1 drop QID BOTH EYES Last administered on 06/27/18at 09:09; Admin Dose 1 DROP; Start 06/25/18 at 21:00; Stop 07/02/18 at 20:59 DEMARCUS CHING MD Jun 27, 2018 10:39
--- NOTE | 2018-06-27 12:15 | PN ---
Date/Time of Note Date/Time of Note DATE: 06/27/18 TIME: 12:13 Subjective No new complaints Objective Vital Signs Date Temp Pulse Resp B/P (MAP) Pulse Ox O2 O2 Flow FiO2 Time Delivery Rate 06/27/18 97.7 87 18 152/64 90 Room Air 3.0 07:00 (93) Intake and Output 06/26/18 06/26/18 06/27/18 1515:00 23:00 07:00 IntakeIntake Total 1460 ml 200 ml BalanceBalance 1460 ml 200 ml Exam pulm-cta max of 1 - 2 for transfer Results/Medications Result Diagram: 06/25/18 0612 06/25/18 0612 Medications Current Medications Acetaminophen (Tylenol Tab) 500 mg Q4H PRN PO MILD PAIN(1-3)OR ELEVATED TEMP; Start 06/25/18 at 01:13 Allopurinol (Zyloprim) 300 mg DAILY PO Last administered on 06/27/18at 09:10; Admin Dose 300 MG; Start 06/25/18 at 01:13 Aspirin (Aspirin) 81 mg DAILY PO Last administered on 06/27/18at 09:10; Admin Dose 81 MG; Start 06/25/18 at 01:13 Atorvastatin Calcium (Lipitor) 20 mg QHS PO Last administered on 06/26/18at 21:38; Admin Dose 20 MG; Start 06/25/18 at 01:13 Clopidogrel Bisulfate (plaVIX) 75 mg DAILY PO Last administered on 06/27/18at 09:10; Admin Dose 75 MG; Start 06/25/18 at 01:13 Isosorbide Mononitrate (Imdur) 120 mg DAILY PO Last administered on 06/27/18at 09:11; Admin Dose 120 MG; Start 06/25/18 at 01:13 Metoprolol Tartrate (Lopressor) 25 mg BID PO Last administered on 06/27/18at 09:12; Admin Dose 25 MG; Start 06/25/18 at 01:13 Tramadol HCl (Ultram) 50 mg Q6H PRN PO PAIN; Start 06/25/18 at 01:13 Lorazepam (Ativan) 0.5 mg Q8H PRN PO ANXIETY; Start 06/25/18 at 01:13 Acetaminophen/ Hydrocodone Bitart ([place] (5/325)) 1 tab Q6H PRN PO PAIN LEVEL 4-6 Last administered on 06/26/18 15:37; Admin Dose 1 TAB; Start 06/25/18 at 01:13 Digoxin (Digoxin) 0.0625 mg DAILY@1300 PO Last administered on 06/26/18 15:37; Admin Dose 0.0625 MG; Start 06/25/18 at 01:13 Furosemide (Lasix) 40 mg DAILY PO Last administered on 06/27/18 09:11; Admin Dose 40 MG; Start 06/25/18 at 01:13 Celecoxib (Celebrex) 100 mg BID PO Last administered on 06/27/18 09:10; Admin Dose 100 MG; Start 06/25/18 at 01:13 Epoetin Calos (Epogen (Esrd)) 10,000 units MoWeFr@17 SC Last administered on 06/26/18 18:16; Admin Dose 10,000 UNITS; Start 06/25/18 at 01:13 Multivit/Ca Carb/ B Cmplx/FA/Prenat (Fany-Jose Luis) 1 tab DAILY PO Last administered on 06/27/18 09:10; Admin Dose 1 TAB; Start 06/25/18 at 01:13 Heparin Sodium (Porcine) (Heparin (1000 Units/ml)) 2,800 unit PRN PRN CATHETER DIALYSIS; Start 06/25/18 at 01:13 Lidocaine (Lidoderm) 1 patch DAILY TD Last administered on 06/27/18 09:17; Admin Dose 1 PATCH; Start 06/25/18 at 01:13 Metoclopramide HCl (Reglan) 5 mg AC MEALS PO Last administered on 06/26/18 18:16; Admin Dose 5 MG; Start 06/25/18 at 01:13 Lisinopril (Zestril) 2.5 mg QHS PO Last administered on 06/26/18 21:39; Admin Dose 2.5 MG; Start 06/25/18 at 01:13 Lactulose (Enulose) 20 gm DAILY PRN PO CONSTIPATION; Start 06/25/18 at 01:13 Tamsulosin HCl (Flomax) 0.4 mg HS PO Last administered on 06/26/18 21:40; Admin Dose 0.4 MG; Start 06/25/18 at 01:13 Heparin Sodium (Porcine) (Heparin (1000 Units/ml)) 6,100 unit AFTER DIALYSIS CATHETER Last administered on 06/26/18at 00:44; Admin Dose 6,100 UNIT; Start 06/25/18 at 01:13 Albumin Human 100 ml @ 100 mls/hr DURING DIALYSIS PRN IV BLOOD PRESSURE SUPPORT; Start 06/25/18 at 01:13 Docusate Sodium (Colace) 100 mg Q12H PO Last administered on 06/27/18at 09:10; Admin Dose 100 MG; Start 06/25/18 at 09:00 Famotidine (Pepcid) 20 mg Q24H PO Last administered on 06/26/18at 21:39; Admin Dose 20 MG; Start 06/25/18 at 21:00 Senna (Senokot) 1 tab HS PO Last administered on 06/26/18at 21:38; Admin Dose 1 TAB; Start 06/25/18 at 21:00 Lactulose (Enulose) 20 gm DAILY PRN PO CONSTIPATION; Start 06/25/18 at 06:00 Bisacodyl (Dulcolax Supp) 10 mg DAILY PRN [place] CONSTIPATION; Start 06/25/18 at 06:00 Acetaminophen (Tylenol Tab) 650 mg Q4H PRN PO PAIN; Start 06/25/18 at 06:00 Tobramycin Sulfate (Tobrex 0.3% Oph Drop) 1 drop QID BOTH EYES Last administered on 06/27/18at 09:09; Admin Dose 1 DROP; Start 06/25/18 at 21:00; Stop 07/02/18 at 20:59 Assessment/Plan Additional Assessment/Plan rehab- Toxic metabolic encephalopathy;Critical illness myopathy. Continue rehab activities End-stage renal disease on hemodialysis- case d/w Dr. Quick. Coronary artery disease, status post non-ST elevation myocardial infarction. Pneumonia. Dysphagia, on dysphagia soft diet. 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 Hypertension. Chronic heart failure. Atrial fibrillation. CARO RENEE MD Jun 27, 2018 12:15
[2018-06-27] MEDS: DIGOXIN 0.125 MG TAB PO SCH (13:01)
--- NOTE | 2018-06-27 17:23 | PN ---
Date/Time of Note Date/Time of Note DATE: 06/27/18 TIME: 17:17 Assessment/Plan VTE Prophylaxis [place] [facility] [place] risk: 5 SCD applied (from [facility] [place] No SCD contraindicated: low risk/ambulating Pharmacological prophylaxis: heparin Lines/Catheters IV [facility]from [facility] Central Line Central line still needed: Yes Urinary Cath still in place: No Assessment/Plan Problems: (1) End stage renal disease Status: Chronic Comment: Continue with hemodialysis. He will need dialysis access constructed (2) Non-STEMI (non-ST elevated myocardial infarction) Onset Date: ~ 06/06/2018 Status: Acute Comment: Stabilized nicely; not a candidate for catheterization (3) Systolic CHF with reduced left ventricular function, NYHA class 3 Status: Chronic Comment: On full dose therapy (4) Hypertension Status: Chronic Comment: Adequate control Qualifiers: Hypertension type: essential hypertension Qualified Codes: I10 - Essential (primary) hypertension (5) Hyperlipidemia Status: Chronic Comment: Continue with full dose statin therapy Qualifiers: Hyperlipidemia type: pure hypercholesterolemia Qualified Codes: E78.00 - Pure hypercholesterolemia, unspecified Result Diagram: 06/27/18 1640 06/25/18 0612 Results 24hrs Laboratory Tests Test 06/27/18 16:40 White Blood Count 10.0 # Red Blood Count 2.73 L Hemoglobin 7.6 L Hematocrit 24.8 L Mean Corpuscular Volume 90.8 Mean Corpuscular Hemoglobin 27.8 L Mean Corpuscular Hemoglobin Concent 30.6 L Red Cell Distribution Width 15.2 H Platelet Count 276 # Mean Platelet Volume 9.5 Immature Granulocytes % 4.500 H Neutrophils % 76.8 Lymphocytes % 5.6 L Monocytes % 8.1 Eosinophils % 4.4 Basophils % 0.6 Nucleated Red Blood Cells % 0.0 Immature Granulocytes # 0.450 H Neutrophils # 7.7 H Lymphocytes # 0.6 L Monocytes # 0.8 Eosinophils # 0.4 Basophils # 0.1 Nucleated Red Blood Cells # 0.0 Subjective 24 Hr Interval Summary Free Text/Dictation Patient reports he would like to know how he is doing. Constitutional: no complaints Respiratory: no complaints Cardiovascular: no complaints Gastrointestinal: no complaints Genitourinary: no complaints Exam/Review of Systems Vital Signs Vitals Vital Signs Date Temp Pulse Resp B/P (MAP) Pulse Ox O2 O2 Flow FiO2 Time Delivery Rate 06/27/18 78 20 131/65 98 Nasal 2.0 16:41 (87) Cannula 06/27/18 97.5 14:00 Intake and Output 06/26/18 06/26/18 06/27/18 1515:00 23:00 07:00 IntakeIntake Total 1460 ml 200 ml BalanceBalance 1460 ml 200 ml Exam Constitutional: alert, oriented Neck: supple, non-tender Respiratory: clear to auscultation, normal air movement Cardiovascular: regular rate and rhythm, nl pulses Gastrointestinal: soft, nl liver, spleen, non-tender Medications Medications Current Medications Acetaminophen (Tylenol Tab) 500 mg Q4H PRN PO MILD PAIN(1-3)OR ELEVATED TEMP; Start 06/25/18 at 01:13 Allopurinol (Zyloprim) 300 mg DAILY PO Last administered on 06/27/18at 09:10; Admin Dose 300 MG; Start 06/25/18 at 01:13 Aspirin (Aspirin) 81 mg DAILY PO Last administered on 06/27/18at 09:10; Admin Dose 81 MG; Start 06/25/18 at 01:13 Atorvastatin Calcium (Lipitor) 20 mg QHS PO Last administered on 06/26/18at 21:38; Admin Dose 20 MG; Start 06/25/18 at 01:13 Clopidogrel Bisulfate (plaVIX) 75 mg DAILY PO Last administered on 06/27/18at 09:10; Admin Dose 75 MG; Start 06/25/18 at 01:13 Isosorbide Mononitrate (Imdur) 120 mg DAILY PO Last administered on 06/27/18at 09:11; Admin Dose 120 MG; Start 06/25/18 at 01:13 Metoprolol Tartrate (Lopressor) 25 mg BID PO Last administered on 06/27/18at 09:12; Admin Dose 25 MG; Start 06/25/18 at 01:13 Tramadol HCl (Ultram) 50 mg Q6H PRN PO PAIN; Start 06/25/18 at 01:13 Lorazepam (Ativan) 0.5 mg Q8H PRN PO ANXIETY; Start 06/25/18 at 01:13 Acetaminophen/ Hydrocodone Bitart ([place] (5/325)) 1 tab Q6H PRN PO PAIN LEVEL 4-6 Last administered on 06/26/18at 15:37; Admin Dose 1 TAB; Start 06/25/18 at 01:13 Digoxin (Digoxin) 0.0625 mg DAILY@1300 PO Last administered on 06/27/18 13:01; Admin Dose 0.0625 MG; Start 06/25/18 at 01:13 Furosemide (Lasix) 40 mg DAILY PO Last administered on 06/27/18at 09:11; Admin Dose 40 MG; Start 06/25/18 at 01:13 Celecoxib (Celebrex) 100 mg BID PO Last administered on 06/27/18 09:10; Admin Dose 100 MG; Start 06/25/18 at 01:13 Epoetin Calos (Epogen (Esrd)) 10,000 units MoWeFr@17 SC Last administered on 06/26/18 18:16; Admin Dose 10,000 UNITS; Start 06/25/18 at 01:13 Multivit/Ca Carb/ B Cmplx/FA/Prenat (Fany-Jose Luis) 1 tab DAILY PO Last administered on 06/27/18 09:10; Admin Dose 1 TAB; Start 06/25/18 at 01:13 Lidocaine (Lidoderm) 1 patch DAILY TD Last administered on 06/27/18 09:17; Admin Dose 1 PATCH; Start 06/25/18 at 01:13 Metoclopramide HCl (Reglan) 5 mg AC MEALS PO Last administered on 06/27/18 13:00; Admin Dose 5 MG; Start 06/25/18 at 01:13 Lisinopril (Zestril) 2.5 mg QHS PO Last administered on 06/26/18 21:39; Admin Dose 2.5 MG; Start 06/25/18 at 01:13 Lactulose (Enulose) 20 gm DAILY PRN PO CONSTIPATION; Start 06/25/18 at 01:13 Tamsulosin HCl (Flomax) 0.4 mg HS PO Last administered on 06/26/18 21:40; Admin Dose 0.4 MG; Start 06/25/18 at 01:13 Albumin Human 100 ml @ 100 mls/hr DURING DIALYSIS PRN IV BLOOD PRESSURE SUPPORT; Start 06/25/18 at 01:13 Docusate Sodium (Colace) 100 mg Q12H PO Last administered on 06/27/18 09:10; Admin Dose 100 MG; Start 06/25/18 at 09:00 Famotidine (Pepcid) 20 mg Q24H PO Last administered on 06/26/18at 21:39; Admin Dose 20 MG; Start 06/25/18 at 21:00 Senna (Senokot) 1 tab HS PO Last administered on 06/26/18at 21:38; Admin Dose 1 TAB; Start 06/25/18 at 21:00 Lactulose (Enulose) 20 gm DAILY PRN PO CONSTIPATION; Start 06/25/18 at 06:00 Bisacodyl (Dulcolax Supp) 10 mg DAILY PRN [place] CONSTIPATION; Start 06/25/18 at 06:00 Acetaminophen (Tylenol Tab) 650 mg Q4H PRN PO PAIN; Start 06/25/18 at 06:00 Tobramycin Sulfate (Tobrex 0.3% Oph Drop) 1 drop QID BOTH EYES Last administered on 06/27/18at 13:00; Admin Dose 1 DROP; Start 06/25/18 at 21:00; Stop 07/02/18 at 20:59 Heparin Sodium (Porcine) (Heparin (1000 Units/ml)) 6,100 unit AFTER DIALYSIS CATHETER ; Start 06/27/18 at 16:30 RUTH VAZQUEZ MD Jun 27, 2018 17:23
--- NOTE | 2018-06-27 19:00 | NUR ---
Received patient from previous shift in stable condition. Patient awake and alert but with periods of confusion. Noted with episode of getting out of bed unassisted. Reiterated the importance of using the call button and showed again to the patient how the call button works. Due medications given. Call light and bedside table placed within reach. Bed alarm activated for safety and placed on lowest position. Remains on oxygen at 3LPM. Patient refused to work with Physical Therapist today. Needs attended and continuous monitoring provided. Will endorse to next shift.
[2018-06-27] MEDS: HEPARIN 1000 UNITS/ML 10 ML INJ CATHETER SCH (20:28)
[2018-06-27] MEDS: ATORVASTATIN 20 MG TAB PO SCH (21:24)
[2018-06-27] MEDS: FAMOTIDINE 20 MG TAB PO SCH (21:24)
[2018-06-27] MEDS: SENNA TAB PO SCH (21:24)
[2018-06-27] MEDS: TAMSULOSIN (SR) 0.4 MG CAP PO SCH (21:24)
[2018-06-27] MEDS: LISINOPRIL 5 MG TAB PO SCH (21:27)
[2018-06-27] MEDS: LORAZEPAM 0.5 MG TAB PO PRN (22:56)
[2018-06-28 02:00] VITALS: BP 130/65; PULSE 89; RESP 20
[2018-06-28] MEDS: HYDROCODONE/APAP (5/325) TAB PO PRN (04:20)
--- NOTE | 2018-06-28 06:00 | NUR ---
PT HAD HD LAST NIGHT WITH 1.5L OUT PER REPORT. PT WAS CONFUSED, AGITATED AND UNCOOPERATIVE.DURING THE SHIFT, HE TRIED TO PULL OUT HIS CENTRAL LINE ND TRIED TO GET OUT OF BED. ATIVAN PO GIVEN. REINFORCEMENT GIVEN REGARDING BOUT SAFETY. BED ALARM ACTIVATED. BED IN LOWEST LEVEL. CLOSE MONITORING. FREQUENT ROUNDING MADE. PT HAD BM X1 INC, KEPT DRY AND CLEAN.
[2018-06-28 07:00] VITALS: BP 124/57; PULSE 90; RESP 20
[2018-06-28] MEDS: METOCLOPRAMIDE 5 MG TAB PO SCH ×3 (07:05→18:00)
[2018-06-28] MEDS: LIDOCAINE 5% PATCH TD SCH (09:00)
[2018-06-28] MEDS: METOPROLOL 25 MG TAB PO SCH ×2 (09:00→20:38)
[2018-06-28] MEDS: CELECOXIB 100 MG CAP PO SCH ×2 (09:00→20:34)
[2018-06-28] MEDS: MULTIVIT/CA CARB/B CMPLX/FA TAB PO SCH (09:00)
[2018-06-28] MEDS: ASPIRIN 81 MG TAB PO SCH ×2 (09:00→16:03)
[2018-06-28] MEDS: TOBRAMYCIN 0.3% 5 ML OPH BOTH EYES SCH ×4 (09:00→20:59)
[2018-06-28] MEDS: ALLOPURINOL 300 MG TAB PO SCH ×2 (09:00→16:03)
[2018-06-28] MEDS: ISOSORBIDE MONONITRATE(SR)60 MG TAB PO SCH ×2 (09:00→16:11)
[2018-06-28] MEDS: CLOPIDOGREL 75 MG TAB PO SCH (09:00)
[2018-06-28] MEDS: DOCUSATE SODIUM 100 MG CAP PO SCH ×2 (09:00→21:00)
--- NOTE | 2018-06-28 12:38 | PN ---
Date/Time of Note Date/Time of Note DATE: 06/28/18 TIME: 12:37 Subjective Comfortable Objective Vital Signs Date Temp Pulse Resp B/P (MAP) Pulse Ox O2 O2 Flow FiO2 Time Delivery Rate 06/28/18 98.3 90 20 124/57 91 Room Air 3.0 07:00 (79) Intake and Output 06/27/18 06/27/18 06/28/18 1515:00 23:00 07:00 IntakeIntake Total 750 ml 100 ml OutputOutput Total 100 ml 2400 ml 3 ml BalanceBalance 650 ml -2300 ml -3 ml Exam pulm-cta max transfer Results/Medications Result Diagram: 06/27/18 1640 06/27/18 1640 Results 24 hrs Laboratory Tests Test 06/27/18 16:40 White Blood Count 10.0 # Red Blood Count 2.73 L Hemoglobin 7.6 L Hematocrit 24.8 L Mean Corpuscular Volume 90.8 Mean Corpuscular Hemoglobin 27.8 L Mean Corpuscular Hemoglobin Concent 30.6 L Red Cell Distribution Width 15.2 H Platelet Count 276 # Mean Platelet Volume 9.5 Immature Granulocytes % 4.500 H Neutrophils % 76.8 Lymphocytes % 5.6 L Monocytes % 8.1 Eosinophils % 4.4 Basophils % 0.6 Nucleated Red Blood Cells % 0.0 Immature Granulocytes # 0.450 H Neutrophils # 7.7 H Lymphocytes # 0.6 L Monocytes # 0.8 Eosinophils # 0.4 Basophils # 0.1 Nucleated Red Blood Cells # 0.0 Sodium Level 129 L Potassium Level 4.4 Chloride Level 92 L Carbon Dioxide Level 24 Anion Gap 13 Blood Urea Nitrogen 67 H Creatinine 5.52 H Est Glomerular Filtrat Rate mL/min Glucose Level 98 Calcium Level 8.0 L Total Bilirubin 0.1 L Direct Bilirubin 0.00 Indirect Bilirubin 0.1 Aspartate Amino Transf (AST/SGOT) 33 Alanine Aminotransferase (ALT/SGPT) 26 Alkaline Phosphatase 221 H Total Protein 5.1 L Albumin 2.8 L Globulin 2.30 Albumin/Globulin Ratio 1.21 Medications Current Medications Acetaminophen (Tylenol Tab) 500 mg Q4H PRN PO MILD PAIN(1-3)OR ELEVATED TEMP; Start 06/25/18 at 01:13 Allopurinol (Zyloprim) 300 mg DAILY PO Last administered on 06/27/18at 09:10; Admin Dose 300 MG; Start 06/25/18 at 01:13 Aspirin (Aspirin) 81 mg DAILY PO Last administered on 06/27/18 09:10; Admin Dose 81 MG; Start 06/25/18 at 01:13 Atorvastatin Calcium (Lipitor) 20 mg QHS PO Last administered on 06/27/18 21:24; Admin Dose 20 MG; Start 06/25/18 at 01:13 Clopidogrel Bisulfate (plaVIX) 75 mg DAILY PO Last administered on 06/27/18 09:10; Admin Dose 75 MG; Start 06/25/18 at 01:13 Isosorbide Mononitrate (Imdur) 120 mg DAILY PO Last administered on 06/27/18 09:11; Admin Dose 120 MG; Start 06/25/18 at 01:13 Metoprolol Tartrate (Lopressor) 25 mg BID PO Last administered on 06/27/18 21:27; Admin Dose 25 MG; Start 06/25/18 at 01:13 Tramadol HCl (Ultram) 50 mg Q6H PRN PO PAIN; Start 06/25/18 at 01:13 Lorazepam (Ativan) 0.5 mg Q8H PRN PO ANXIETY Last administered on 06/27/18 22:56; Admin Dose 0.5 MG; Start 06/25/18 at 01:13 Acetaminophen/ Hydrocodone Bitart ([place] (5/325)) 1 tab Q6H PRN PO PAIN LEVEL 4-6 Last administered on 06/28/18 04:20; Admin Dose 1 TAB; Start 06/25/18 at 01:13 Digoxin (Digoxin) 0.0625 mg DAILY@1300 PO Last administered on 06/27/18 13:01; Admin Dose 0.0625 MG; Start 06/25/18 at 01:13 Furosemide (Lasix) 40 mg DAILY PO Last administered on 06/27/18 09:11; Admin Dose 40 MG; Start 06/25/18 at 01:13 Celecoxib (Celebrex) 100 mg BID PO Last administered on 06/27/18 21:24; Admin Dose 100 MG; Start 06/25/18 at 01:13 Epoetin Calos (Epogen (Esrd)) 10,000 units MoWeFr@17 SC Last administered on 06/26/18 18:16; Admin Dose 10,000 UNITS; Start 06/25/18 at 01:13 Multivit/Ca Carb/ B Cmplx/FA/Prenat (Fany-Jose Luis) 1 tab DAILY PO Last administered on 06/27/18at 09:10; Admin Dose 1 TAB; Start 06/25/18 at 01:13 Lidocaine (Lidoderm) 1 patch DAILY TD Last administered on 06/27/18at 09:17; Admin Dose 1 PATCH; Start 06/25/18 at 01:13 Metoclopramide HCl (Reglan) 5 mg AC MEALS PO Last administered on 06/27/18at 13:00; Admin Dose 5 MG; Start 06/25/18 at 01:13 Lisinopril (Zestril) 2.5 mg QHS PO Last administered on 06/27/18 21:27; Admin Dose 2.5 MG; Start 06/25/18 at 01:13 Lactulose (Enulose) 20 gm DAILY PRN PO CONSTIPATION; Start 06/25/18 at 01:13 Tamsulosin HCl (Flomax) 0.4 mg HS PO Last administered on 06/27/18at 21:24; Admin Dose 0.4 MG; Start 06/25/18 at 01:13 Albumin Human 100 ml @ 100 mls/hr DURING DIALYSIS PRN IV BLOOD PRESSURE SUPPORT; Start 06/25/18 at 01:13 Docusate Sodium (Colace) 100 mg Q12H PO Last administered on 06/27/18 21:24; Admin Dose 100 MG; Start 06/25/18 at 09:00 Famotidine (Pepcid) 20 mg Q24H PO Last administered on 06/27/18at 21:24; Admin Dose 20 MG; Start 06/25/18 at 21:00 Senna (Senokot) 1 tab HS PO Last administered on 06/27/18 21:24; Admin Dose 1 TAB; Start 06/25/18 at 21:00 Lactulose (Enulose) 20 gm DAILY PRN PO CONSTIPATION; Start 06/25/18 at 06:00 Bisacodyl (Dulcolax Supp) 10 mg DAILY PRN [place] CONSTIPATION; Start 06/25/18 at 06:00 Acetaminophen (Tylenol Tab) 650 mg Q4H PRN PO PAIN; Start 06/25/18 at 06:00 Tobramycin Sulfate (Tobrex 0.3% Oph Drop) 1 drop QID BOTH EYES Last administered on 06/27/18at 21:29; Admin Dose 1 DROP; Start 06/25/18 at 21:00; Stop 07/02/18 at 20:59 Heparin Sodium (Porcine) (Heparin (1000 Units/ml)) 6,100 unit AFTER DIALYSIS CATHETER Last administered on 06/27/18at 20:28; Admin Dose 6,100 UNIT; Start 06/27/18 at 16:30 Assessment/Plan Additional Assessment/Plan rehab- Toxic metabolic encephalopathy;Critical illness myopathy. Activity tolerance improving. Continue treatment plan End-stage renal disease on hemodialysis- per renal Coronary artery disease, status post non-ST elevation myocardial infarction. Pneumonia. Dysphagia, on dysphagia soft diet. 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 Hypertension. Chronic heart failure. Atrial fibrillation. CARO RENEE MD Jun 28, 2018 12:38
[2018-06-28] MEDS: DIGOXIN 0.125 MG TAB PO SCH (13:00)
[2018-06-28 14:00] VITALS: BP 127/61; PULSE 102; RESP 20
--- NOTE | 2018-06-28 14:19 | NUR ---
Attempted to see pt for ST. Unable to arouse despite max prompting. Pt was unable to participate in full OOB activities with PT earlier in PM as well. RN reporting poor sleep overnight. OT reported bloody stools earlier in day. To f/u as pt becomes able to participate.
--- NOTE | 2018-06-28 15:06 | NUR ---
Dialysis for Sunday [id number].
--- NOTE | 2018-06-28 15:19 | NUR ---
Nursing notes: patient refused to communicate with RN, refused all his medications. Will offer the medication again. Dr. Tomlin notifed in person that patient had bloody stool this morning with orders, no active bleeding noted, stool with 8-10 drops of small red blood blood in the commode. Will monitor for further care.
--- NOTE | 2018-06-28 15:20 | CONS ---
Date/Time of Note Date/Time of Note DATE: 06/28/18 TIME: 15:10 Assessment/Plan Assessment/Plan Hospital Course 1. End-stage renal disease on maintenance hemodialysis Sunday. He has hemodialysis ordered for today. 2. Metabolic encephalopathy , his level of consciousness is alternating between being wide awake and then being quite lethargic. 3. leukocytosis. His white blood count is decreasing. He has been afebrile. 4. Coronary artery disease, recent NSTEMI 5. Critical illness myopathy . He is still quite weak. Physical therapy is doing their best to work with him. 6. Paroxysmal atrial fibrillation 7. Anemia of chronic kidney disease 8. He has had a small amount of bright red rectal bleeding. Could be hemorrhoidal. His hemoglobin done just now was up from 7.6 to 8.4. Result Diagram: 06/28/18 1450 06/27/18 1640 Results 24hrs Laboratory Tests Test 06/27/18 16:40 06/28/18 14:50 White Blood Count 10.0 # 10.1 Red Blood Count 2.73 L 3.06 L Hemoglobin 7.6 L 8.4 L Hematocrit 24.8 L 27.8 L Mean Corpuscular Volume 90.8 90.8 Mean Corpuscular Hemoglobin 27.8 L 27.5 L Mean Corpuscular Hemoglobin Concent 30.6 L 30.2 L Red Cell Distribution Width 15.2 H 15.1 H Platelet Count 276 # 307 Mean Platelet Volume 9.5 9.4 Immature Granulocytes % 4.500 H 3.700 H Neutrophils % 76.8 78.7 H Lymphocytes % 5.6 L 3.8 L Monocytes % 8.1 9.7 Eosinophils % 4.4 3.4 Basophils % 0.6 0.7 Nucleated Red Blood Cells % 0.0 0.0 Immature Granulocytes # 0.450 H 0.370 H Neutrophils # 7.7 H 7.9 H Lymphocytes # 0.6 L 0.4 L Monocytes # 0.8 1.0 H Eosinophils # 0.4 0.3 Basophils # 0.1 0.1 Nucleated Red Blood Cells # 0.0 0.0 Sodium Level 129 L Potassium Level 4.4 Chloride Level 92 L Carbon Dioxide Level 24 Anion Gap 13 Blood Urea Nitrogen 67 H Creatinine 5.52 H Est Glomerular Filtrat Rate mL/min Glucose Level 98 Calcium Level 8.0 L Total Bilirubin 0.1 L Direct Bilirubin 0.00 Indirect Bilirubin 0.1 Aspartate Amino Transf (AST/SGOT) 33 Alanine Aminotransferase (ALT/SGPT) 26 Alkaline Phosphatase 221 H Total Protein 5.1 L Albumin 2.8 L Globulin 2.30 Albumin/Globulin Ratio 1.21 Consultation Date/Type/Reason Admit Date/Time Jun 24, 2018 at 21:30 Initial Consult Date Type of Consult Nephrology 24 HR Interval Summary Free Text/Dictation Mr. ware is being seen in nephrologic follow-up. He is lethargic but does arouse to verbal stimuli. According to the nurses his mental status has been waxing and waning with episodes of lethargy and other times he is wide awake. He has had some bright red rectal bleeding and a hemoglobin done yesterday was down to 7.6 g. Exam/Review of Systems Vital Signs Vitals Vital Signs Date Temp Pulse Resp B/P (MAP) Pulse Ox O2 O2 Flow FiO2 Time Delivery Rate 06/28/18 99.1 102 20 127/61 90 Nasal 3.0 14:00 (83) Cannula Intake and Output 06/27/18 06/27/18 06/28/18 1515:00 23:00 07:00 IntakeIntake Total 750 ml 100 ml OutputOutput Total 100 ml 2400 ml 3 ml BalanceBalance 650 ml -2300 ml -3 ml Exam His left arm is swollen. He does have a femoral catheter in place in the right groin. Constitutional: frail Respiratory: clear to auscultation, diminished breath sounds Cardiovascular: regular rate and rhythm Gastrointestinal: soft, non-tender Medications Medications Current Medications Acetaminophen (Tylenol Tab) 500 mg Q4H PRN PO MILD PAIN(1-3)OR ELEVATED TEMP; Start 06/25/18 at 01:13 Allopurinol (Zyloprim) 300 mg DAILY PO Last administered on 06/27/18at 09:10; Admin Dose 300 MG; Start 06/25/18 at 01:13 Aspirin (Aspirin) 81 mg DAILY PO Last administered on 06/27/18at 09:10; Admin Dose 81 MG; Start 06/25/18 at 01:13 Atorvastatin Calcium (Lipitor) 20 mg QHS PO Last administered on 06/27/18at 21:24; Admin Dose 20 MG; Start 06/25/18 at 01:13 Clopidogrel Bisulfate (plaVIX) 75 mg DAILY PO Last administered on 06/27/18 09:10; Admin Dose 75 MG; Start 06/25/18 at 01:13 Isosorbide Mononitrate (Imdur) 120 mg DAILY PO Last administered on 06/27/18 09:11; Admin Dose 120 MG; Start 06/25/18 at 01:13 Metoprolol Tartrate (Lopressor) 25 mg BID PO Last administered on 06/27/18 21:27; Admin Dose 25 MG; Start 06/25/18 at 01:13 Tramadol HCl (Ultram) 50 mg Q6H PRN PO PAIN; Start 06/25/18 at 01:13 Lorazepam (Ativan) 0.5 mg Q8H PRN PO ANXIETY Last administered on 06/27/18 22:56; Admin Dose 0.5 MG; Start 06/25/18 at 01:13 Acetaminophen/ Hydrocodone Bitart ([place] (5/325)) 1 tab Q6H PRN PO PAIN LEVEL 4-6 Last administered on 06/28/18 04:20; Admin Dose 1 TAB; Start 06/25/18 at 01:13 Digoxin (Digoxin) 0.0625 mg DAILY@1300 PO Last administered on 06/27/18 13:01; Admin Dose 0.0625 MG; Start 06/25/18 at 01:13 Furosemide (Lasix) 40 mg DAILY PO Last administered on 06/27/18 09:11; Admin Dose 40 MG; Start 06/25/18 at 01:13 Celecoxib (Celebrex) 100 mg BID PO Last administered on 06/27/18 21:24; Admin Dose 100 MG; Start 06/25/18 at 01:13 Epoetin Calos (Epogen (Esrd)) 10,000 units MoWeFr@17 SC Last administered on 06/26/18 18:16; Admin Dose 10,000 UNITS; Start 06/25/18 at 01:13 Multivit/Ca Carb/ B Cmplx/FA/Prenat (Fany-Jose Luis) 1 tab DAILY PO Last administered on 06/27/18 09:10; Admin Dose 1 TAB; Start 06/25/18 at 01:13 Lidocaine (Lidoderm) 1 patch DAILY TD Last administered on 06/27/18 09:17; Admin Dose 1 PATCH; Start 06/25/18 at 01:13 Metoclopramide HCl (Reglan) 5 mg AC MEALS PO Last administered on 06/27/18at 13:00; Admin Dose 5 MG; Start 06/25/18 at 01:13 Lisinopril (Zestril) 2.5 mg QHS PO Last administered on 06/27/18 21:27; Admin Dose 2.5 MG; Start 06/25/18 at 01:13 Lactulose (Enulose) 20 gm DAILY PRN PO CONSTIPATION; Start 06/25/18 at 01:13 Tamsulosin HCl (Flomax) 0.4 mg HS PO Last administered on 06/27/18 21:24; Admin Dose 0.4 MG; Start 06/25/18 at 01:13 Albumin Human 100 ml @ 100 mls/hr DURING DIALYSIS PRN IV BLOOD PRESSURE SUPPORT; Start 06/25/18 at 01:13 Docusate Sodium (Colace) 100 mg Q12H PO Last administered on 06/27/18 21:24; Admin Dose 100 MG; Start 06/25/18 at 09:00 Famotidine (Pepcid) 20 mg Q24H PO Last administered on 06/27/18 21:24; Admin Dose 20 MG; Start 06/25/18 at 21:00 Senna (Senokot) 1 tab HS PO Last administered on 06/27/18 21:24; Admin Dose 1 TAB; Start 06/25/18 at 21:00 Lactulose (Enulose) 20 gm DAILY PRN PO CONSTIPATION; Start 06/25/18 at 06:00 Bisacodyl (Dulcolax Supp) 10 mg DAILY PRN [place] CONSTIPATION; Start 06/25/18 at 06:00 Acetaminophen (Tylenol Tab) 650 mg Q4H PRN PO PAIN; Start 06/25/18 at 06:00 Tobramycin Sulfate (Tobrex 0.3% Oph Drop) 1 drop QID BOTH EYES Last administered on 06/27/18 21:29; Admin Dose 1 DROP; Start 06/25/18 at 21:00; Stop 07/02/18 at 20:59 Heparin Sodium (Porcine) (Heparin (1000 Units/ml)) 6,100 unit AFTER DIALYSIS CATHETER Last administered on 06/27/18at 20:28; Admin Dose 6,100 UNIT; Start 06/27/18 at 16:30 DEMARCUS CHING MD Jun 28, 2018 15:20
[2018-06-28] MEDS: FUROSEMIDE 40 MG TAB PO SCH (16:01)
[2018-06-28] MEDS: LORAZEPAM 0.5 MG TAB PO PRN (16:12)
--- NOTE | 2018-06-28 16:33 | PN ---
Date/Time of Note Date/Time of Note DATE: 06/28/18 TIME: 16:30 Assessment/Plan [place] [facility] [place]: 4 [place] [facility] [place] Pharmacological prophylaxis: NA/contraindicated Pharm contraindication: renal impairment (bleeding) Lines/Catheters IV Catheter Type (from [facility]): Central Line Central line still needed: Yes (for hd) Urinary Cath still in place: No Assessment/Plan Result Diagram: 06/28/18 1450 06/27/18 1640 Results 24hrs Laboratory Tests Test 06/27/18 16:40 06/28/18 14:50 White Blood Count 10.0 # 10.1 Red Blood Count 2.73 L 3.06 L Hemoglobin 7.6 L 8.4 L Hematocrit 24.8 L 27.8 L Mean Corpuscular Volume 90.8 90.8 Mean Corpuscular Hemoglobin 27.8 L 27.5 L Mean Corpuscular Hemoglobin Concent 30.6 L 30.2 L Red Cell Distribution Width 15.2 H 15.1 H Platelet Count 276 # 307 Mean Platelet Volume 9.5 9.4 Immature Granulocytes % 4.500 H 3.700 H Neutrophils % 76.8 78.7 H Lymphocytes % 5.6 L 3.8 L Monocytes % 8.1 9.7 Eosinophils % 4.4 3.4 Basophils % 0.6 0.7 Nucleated Red Blood Cells % 0.0 0.0 Immature Granulocytes # 0.450 H 0.370 H Neutrophils # 7.7 H 7.9 H Lymphocytes # 0.6 L 0.4 L Monocytes # 0.8 1.0 H Eosinophils # 0.4 0.3 Basophils # 0.1 0.1 Nucleated Red Blood Cells # 0.0 0.0 Sodium Level 129 L Potassium Level 4.4 Chloride Level 92 L Carbon Dioxide Level 24 Anion Gap 13 Blood Urea Nitrogen 67 H Creatinine 5.52 H Est Glomerular Filtrat Rate mL/min Glucose Level 98 Calcium Level 8.0 L Total Bilirubin 0.1 L Direct Bilirubin 0.00 Indirect Bilirubin 0.1 Aspartate Amino Transf (AST/SGOT) 33 Alanine Aminotransferase (ALT/SGPT) 26 Alkaline Phosphatase 221 H Total Protein 5.1 L Albumin 2.8 L Globulin 2.30 Albumin/Globulin Ratio 1.21 Subjective 24 Hr Interval Summary Free Text/Dictation debility, encephalopathy, on rehab unit, mentlly better right now, family at bedside. 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 for now, if recurrent bleeding or improvement in baseline status, they will reconsider pulm infiltrate, fluid, on daily lasix now, no sob Exam/Review of Systems Vital Signs Vitals Vital Signs Date Temp Pulse Resp B/P (MAP) Pulse Ox O2 O2 Flow FiO2 Time Delivery Rate 06/28/18 99.1 102 20 127/61 90 Nasal 3.0 14:00 (83) Cannula Intake and Output 06/27/18 06/27/18 06/28/18 1515:00 23:00 07:00 IntakeIntake Total 750 ml 100 ml OutputOutput Total 100 ml 2400 ml 3 ml BalanceBalance 650 ml -2300 ml -3 ml Medications Medications Current Medications Acetaminophen (Tylenol Tab) 500 mg Q4H PRN PO MILD PAIN(1-3)OR ELEVATED TEMP; Start 06/25/18 at 01:13 Allopurinol (Zyloprim) 300 mg DAILY PO Last administered on 06/28/18 16:03; Admin Dose 300 MG; Start 06/25/18 at 01:13 Aspirin (Aspirin) 81 mg DAILY PO Last administered on 06/28/18 16:03; Admin Dose 81 MG; Start 06/25/18 at 01:13 Atorvastatin Calcium (Lipitor) 20 mg QHS PO Last administered on 06/27/18at 21:24; Admin Dose 20 MG; Start 06/25/18 at 01:13 Clopidogrel Bisulfate (plaVIX) 75 mg DAILY PO Last administered on 06/27/18 09:10; Admin Dose 75 MG; Start 06/25/18 at 01:13 Isosorbide Mononitrate (Imdur) 120 mg DAILY PO Last administered on 06/28/18 16:11; Admin Dose 120 MG; Start 06/25/18 at 01:13 Metoprolol Tartrate (Lopressor) 25 mg BID PO Last administered on 06/27/18 21:27; Admin Dose 25 MG; Start 06/25/18 at 01:13 Tramadol HCl (Ultram) 50 mg Q6H PRN PO PAIN; Start 06/25/18 at 01:13 Lorazepam (Ativan) 0.5 mg Q8H PRN PO ANXIETY Last administered on 06/28/18 16:12; Admin Dose 0.5 MG; Start 06/25/18 at 01:13 Acetaminophen/ Hydrocodone Bitart ([place] (5/325)) 1 tab Q6H PRN PO PAIN LEVEL 4-6 Last administered on 06/28/18 04:20; Admin Dose 1 TAB; Start 06/25/18 at 01:13 Digoxin (Digoxin) 0.0625 mg DAILY@1300 PO Last administered on 06/27/18 13:01; Admin Dose 0.0625 MG; Start 06/25/18 at 01:13 Furosemide (Lasix) 40 mg DAILY PO Last administered on 06/28/18 16:01; Admin Dose 40 MG; Start 06/25/18 at 01:13 Celecoxib (Celebrex) 100 mg BID PO Last administered on 06/27/18 21:24; Admin Dose 100 MG; Start 06/25/18 at 01:13 Epoetin Calos (Epogen (Esrd)) 10,000 units MoWeFr@17 SC Last administered on 06/26/18 18:16; Admin Dose 10,000 UNITS; Start 06/25/18 at 01:13 Multivit/Ca Carb/ B Cmplx/FA/Prenat (Fany-Jose Luis) 1 tab DAILY PO Last administered on 06/27/18 09:10; Admin Dose 1 TAB; Start 06/25/18 at 01:13 Lidocaine (Lidoderm) 1 patch DAILY TD Last administered on 06/27/18 09:17; Admin Dose 1 PATCH; Start 06/25/18 at 01:13 Metoclopramide HCl (Reglan) 5 mg AC MEALS PO Last administered on 06/27/18 13:00; Admin Dose 5 MG; Start 06/25/18 at 01:13 Lisinopril (Zestril) 2.5 mg QHS PO Last administered on 06/27/18 21:27; Admin Dose 2.5 MG; Start 06/25/18 at 01:13 Lactulose (Enulose) 20 gm DAILY PRN PO CONSTIPATION; Start 06/25/18 at 01:13 Tamsulosin HCl (Flomax) 0.4 mg HS PO Last administered on 06/27/18 21:24; Admin Dose 0.4 MG; Start 06/25/18 at 01:13 Albumin Human 100 ml @ 100 mls/hr DURING DIALYSIS PRN IV BLOOD PRESSURE SUPPORT; Start 06/25/18 at 01:13 Docusate Sodium (Colace) 100 mg Q12H PO Last administered on 06/27/18at 21:24; Admin Dose 100 MG; Start 06/25/18 at 09:00 Famotidine (Pepcid) 20 mg Q24H PO Last administered on 06/27/18at 21:24; Admin Dose 20 MG; Start 06/25/18 at 21:00 Senna (Senokot) 1 tab HS PO Last administered on 06/27/18at 21:24; Admin Dose 1 TAB; Start 06/25/18 at 21:00 Lactulose (Enulose) 20 gm DAILY PRN PO CONSTIPATION; Start 06/25/18 at 06:00 Bisacodyl (Dulcolax Supp) 10 mg DAILY PRN [place] CONSTIPATION; Start 06/25/18 at 06:00 Acetaminophen (Tylenol Tab) 650 mg Q4H PRN PO PAIN; Start 06/25/18 at 06:00 Tobramycin Sulfate (Tobrex 0.3% Oph Drop) 1 drop QID BOTH EYES Last administered on 06/28/18at 16:12; Admin Dose 1 DROP; Start 06/25/18 at 21:00; Stop 07/02/18 at 20:59 Heparin Sodium (Porcine) (Heparin (1000 Units/ml)) 6,100 unit AFTER DIALYSIS CATHETER Last administered on 06/27/18at 20:28; Admin Dose 6,100 UNIT; Start 06/27/18 at 16:30 MELLO SAUER MD Jun 28, 2018 16:33
--- NOTE | 2018-06-28 18:30 | NUR ---
Nursing notes: patient is on Plavix tablet and Aspirin tablet daily, Dr. Tomlin aware of the bright red rectal bleeding episode this morning , Plavix and Aspirin still to continue. will monitor for any further bleeding.
[2018-06-28 19:11] VITALS: BP 115/56; PULSE 88
--- NOTE | 2018-06-28 19:30 | NUR ---
Nursing Notes: patient daughter and came this afternoon and RN asked if patient had Flu Vaccine, as per patient received Flu Vaccine last March 2018 but doesn't' remember if patient had Hepatitis Antigen test. Endorsed to PEPE Kohler to report to RN in am to follow up this this to the .
[2018-06-28 20:30] VITALS: BP 149/59; PULSE 86
[2018-06-28] MEDS: ATORVASTATIN 20 MG TAB PO SCH (20:34)
[2018-06-28] MEDS: FAMOTIDINE 20 MG TAB PO SCH (20:34)
[2018-06-28] MEDS: EPOETIN 10000 UNITS/1 ML INJ (ESRD) SC SCH (20:34)
[2018-06-28] MEDS: TAMSULOSIN (SR) 0.4 MG CAP PO SCH (20:34)
[2018-06-28] MEDS: LISINOPRIL 5 MG TAB PO SCH (20:37)
[2018-06-28] MEDS: SENNA TAB PO SCH (21:00)
[2018-06-29] VITALS (17 sets, daily range): BP systolic 107–152; BP diastolic 52–78; PULSE 78–92; RESP 17–20
--- NOTE | 2018-06-29 06:34 | NUR ---
Slept well. On O2 at 3l/min per NC, no respiratory distress noted. Incontinent of Bowel and bladder, kept clean and dry. Needs attended. Call light within reached, bed alarm is activated. No acute distress noted.
[2018-06-29] MEDS: METOCLOPRAMIDE 5 MG TAB PO SCH ×3 (07:05→16:55)
--- NOTE | 2018-06-29 07:52 | NUR ---
Rosaura conf. # [id number] for today's Dialysis.
[2018-06-29] MEDS: TOBRAMYCIN 0.3% 5 ML OPH BOTH EYES SCH ×4 (09:00→21:00)
[2018-06-29] MEDS: ISOSORBIDE MONONITRATE(SR)60 MG TAB PO SCH (09:00)
[2018-06-29] MEDS: FUROSEMIDE 40 MG TAB PO SCH (09:00)
[2018-06-29] MEDS: METOPROLOL 25 MG TAB PO SCH ×2 (10:30→21:00)
[2018-06-29] MEDS: DOCUSATE SODIUM 100 MG CAP PO SCH ×2 (10:50→21:00)
[2018-06-29] MEDS: CLOPIDOGREL 75 MG TAB PO SCH (10:51)
[2018-06-29] MEDS: ASPIRIN 81 MG TAB PO SCH (10:51)
[2018-06-29] MEDS: MULTIVIT/CA CARB/B CMPLX/FA TAB PO SCH (10:51)
[2018-06-29] MEDS: ALLOPURINOL 300 MG TAB PO SCH (10:51)
[2018-06-29] MEDS: CELECOXIB 100 MG CAP PO SCH ×2 (10:52→21:00)
[2018-06-29] MEDS: LIDOCAINE 5% PATCH TD SCH (10:53)
[2018-06-29] MEDS: DIGOXIN 0.125 MG TAB PO SCH (12:33)
--- NOTE | 2018-06-29 13:49 | CONS ---
Date/Time of Note Date/Time of Note DATE: 06/29/18 TIME: 13:47 Assessment/Plan Assessment/Plan Assessment/Plan 1. End-stage renal disease on maintenance hemodialysis Sunday. for hd today 2. Metabolic encephalopathy , his level of consciousness is alternating between being wide awake and then being quite lethargic.cont to monitor. DNR 3. leukocytosis. resolved 4. Coronary artery disease, recent NSTEMI 5. Critical illness myopathy . He is still quite weak. Physical therapy is doing their best to work with him. 6. Paroxysmal atrial fibrillation: rate controlled 7. Anemia of chronic kidney disease: on epogen. monitor and transfuse prn prognosis very poor. cont to monitor. DNR Result Diagram: 06/28/18 1450 06/27/18 1640 Results 24hrs Laboratory Tests Test 06/28/18 14:50 White Blood Count 10.1 Red Blood Count 3.06 L Hemoglobin 8.4 L Hematocrit 27.8 L Mean Corpuscular Volume 90.8 Mean Corpuscular Hemoglobin 27.5 L Mean Corpuscular Hemoglobin Concent 30.2 L Red Cell Distribution Width 15.1 H Platelet Count 307 Mean Platelet Volume 9.4 Immature Granulocytes % 3.700 H Neutrophils % 78.7 H Lymphocytes % 3.8 L Monocytes % 9.7 Eosinophils % 3.4 Basophils % 0.7 Nucleated Red Blood Cells % 0.0 Immature Granulocytes # 0.370 H Neutrophils # 7.9 H Lymphocytes # 0.4 L Monocytes # 1.0 H Eosinophils # 0.3 Basophils # 0.1 Nucleated Red Blood Cells # 0.0 Consultation Date/Type/Reason Admit Date/Time Jun 24, 2018 at 21:30 Initial Consult Date 24 HR Interval Summary Free Text/Dictation lethargic. poorly responsive. per nursing was up this morning and very tired Exam/Review of Systems Vital Signs Vitals Vital Signs Date Temp Pulse Resp B/P (MAP) Pulse Ox O2 O2 Flow FiO2 Time Delivery Rate 06/29/18 98.4 86 20 150/61 92 Nasal 07:30 (90) Cannula 06/29/18 2.0 05:38 Intake and Output 06/28/18 06/28/18 06/29/18 1515:00 23:00 07:00 IntakeIntake Total 300 ml 850 ml 1050 ml OutputOutput Total 410 ml BalanceBalance 300 ml 440 ml 1050 ml Exam Constitutional: non-verbal, frail Head: normocephalic Eyes: nl conjunctiva Neck: supple, non-tender Respiratory: diminished breath sounds Cardiovascular: regular rate and rhythm, nl pulses, edema Gastrointestinal: soft Medications Medications Current Medications Acetaminophen (Tylenol Tab) 500 mg Q4H PRN PO MILD PAIN(1-3)OR ELEVATED TEMP; Start 06/25/18 at 01:13 Allopurinol (Zyloprim) 300 mg DAILY PO Last administered on 06/29/18 10:51; Admin Dose 300 MG; Start 06/25/18 at 01:13 Aspirin (Aspirin) 81 mg DAILY PO Last administered on 06/29/18 10:51; Admin Dose 81 MG; Start 06/25/18 at 01:13 Atorvastatin Calcium (Lipitor) 20 mg QHS PO Last administered on 06/28/18 20:34; Admin Dose 20 MG; Start 06/25/18 at 01:13 Clopidogrel Bisulfate (plaVIX) 75 mg DAILY PO Last administered on 06/29/18 10:51; Admin Dose 75 MG; Start 06/25/18 at 01:13 Isosorbide Mononitrate (Imdur) 120 mg DAILY PO Last administered on 06/28/18 16:11; Admin Dose 120 MG; Start 06/25/18 at 01:13 Metoprolol Tartrate (Lopressor) 25 mg BID PO Last administered on 06/28/18 20:38; Admin Dose 25 MG; Start 06/25/18 at 01:13 Tramadol HCl (Ultram) 50 mg Q6H PRN PO PAIN; Start 06/25/18 at 01:13 Lorazepam (Ativan) 0.5 mg Q8H PRN PO ANXIETY Last administered on 06/28/18 16:12; Admin Dose 0.5 MG; Start 06/25/18 at 01:13 Acetaminophen/ Hydrocodone Bitart ([place] (5/325)) 1 tab Q6H PRN PO PAIN LEVEL 4-6 Last administered on 06/28/18 04:20; Admin Dose 1 TAB; Start 06/25/18 at 01:13 Digoxin (Digoxin) 0.0625 mg DAILY@1300 PO Last administered on 06/29/18 12:33; Admin Dose 0.0625 MG; Start 06/25/18 at 01:13 Furosemide (Lasix) 40 mg DAILY PO Last administered on 06/28/18 16:01; Admin Dose 40 MG; Start 06/25/18 at 01:13 Celecoxib (Celebrex) 100 mg BID PO Last administered on 06/29/18 10:52; Admin Dose 100 MG; Start 06/25/18 at 01:13 Epoetin Calos (Epogen (Esrd)) 10,000 units MoWeFr@17 SC Last administered on 06/28/18 20:34; Admin Dose 10,000 UNITS; Start 06/25/18 at 01:13 Multivit/Ca Carb/ B Cmplx/FA/Prenat (Fany-Jose Luis) 1 tab DAILY PO Last administered on 06/29/18 10:51; Admin Dose 1 TAB; Start 06/25/18 at 01:13 Lidocaine (Lidoderm) 1 patch DAILY TD Last administered on 06/29/18 10:53; Admin Dose 1 PATCH; Start 06/25/18 at 01:13 Metoclopramide HCl (Reglan) 5 mg AC MEALS PO Last administered on 06/29/18 10:52; Admin Dose 5 MG; Start 06/25/18 at 01:13 Lisinopril (Zestril) 2.5 mg QHS PO Last administered on 06/28/18 20:37; Admin Dose 2.5 MG; Start 06/25/18 at 01:13 Lactulose (Enulose) 20 gm DAILY PRN PO CONSTIPATION; Start 06/25/18 at 01:13 Tamsulosin HCl (Flomax) 0.4 mg HS PO Last administered on 06/28/18 20:34; Admin Dose 0.4 MG; Start 06/25/18 at 01:13 Albumin Human 100 ml @ 100 mls/hr DURING DIALYSIS PRN IV BLOOD PRESSURE SUPPORT; Start 06/25/18 at 01:13 Docusate Sodium (Colace) 100 mg Q12H PO Last administered on 06/29/18 10:50; Admin Dose 100 MG; Start 06/25/18 at 09:00 Famotidine (Pepcid) 20 mg Q24H PO Last administered on 06/28/18 20:34; Admin Dose 20 MG; Start 06/25/18 at 21:00 Senna (Senokot) 1 tab HS PO Last administered on 06/27/18at 21:24; Admin Dose 1 TAB; Start 06/25/18 at 21:00 Lactulose (Enulose) 20 gm DAILY PRN PO CONSTIPATION; Start 06/25/18 at 06:00 Bisacodyl (Dulcolax Supp) 10 mg DAILY PRN [place] CONSTIPATION; Start 06/25/18 at 06:00 Acetaminophen (Tylenol Tab) 650 mg Q4H PRN PO PAIN; Start 06/25/18 at 06:00 Tobramycin Sulfate (Tobrex 0.3% Oph Drop) 1 drop QID BOTH EYES Last administered on 06/29/18at 10:51; Admin Dose 1 DROP; Start 06/25/18 at 21:00; Stop 07/02/18 at 20:59 Heparin Sodium (Porcine) (Heparin (1000 Units/ml)) 6,100 unit AFTER DIALYSIS CATHETER Last administered on 06/27/18at 20:28; Admin Dose 6,100 UNIT; Start 06/27/18 at 16:30 BENITO PEREZ MD Jun 29, 2018 13:49
[2018-06-29] MEDS: HYDROCODONE/APAP (5/325) TAB PO PRN (14:09)
--- NOTE | 2018-06-29 18:12 | NUR ---
Dialysis pending for tonight. Pt has participated in therapies. 1 BM with no sign of blood today. VSS. pain well managed. Pt in agreement with plan of care.
--- NOTE | 2018-06-29 20:38 | PN ---
Date/Time of Note Date/Time of Note DATE: 06/29/18 TIME: 20:35 Assessment/Plan VTE Prophylaxis Risk score (from Ns)>0 risk: 4 SCD applied (from Ns): No SCD contraindicated: low risk/ambulating Pharmacological prophylaxis: heparin Lines/Catheters IV Catheter Type (from Nrs): Central Line Central line still needed: Yes Urinary Cath still in place: No Assessment/Plan Problems: (1) End stage renal disease Status: Chronic Comment: Stable with HD (2) Hypertension Status: Chronic Comment: good control Qualifiers: Hypertension type: essential hypertension Qualified Codes: I10 - Essential (primary) hypertension (3) Systolic CHF with reduced left ventricular function, NYHA class 3 Status: Chronic Comment: compensated Result Diagram: 06/28/18 1450 06/27/18 1640 Subjective 24 Hr Interval Summary Constitutional: no complaints Respiratory: no complaints Cardiovascular: no complaints Gastrointestinal: no complaints Exam/Review of Systems Vital Signs Vitals Vital Signs Date Temp Pulse Resp B/P (MAP) Pulse Ox O2 O2 Flow FiO2 Time Delivery Rate 06/29/18 98.0 88 18 152/68 92 Nasal 19:24 (96) Cannula 06/29/18 2.0 18:39 Intake and Output 06/28/18 06/28/18 06/29/18 1515:00 23:00 07:00 IntakeIntake Total 300 ml 850 ml 1050 ml OutputOutput Total 410 ml BalanceBalance 300 ml 440 ml 1050 ml Exam Constitutional: alert, oriented Respiratory: clear to auscultation, normal air movement Gastrointestinal: soft, nl liver, spleen Medications Medications Current Medications Acetaminophen (Tylenol Tab) 500 mg Q4H PRN PO MILD PAIN(1-3)OR ELEVATED TEMP; Start 06/25/18 at 01:13 Allopurinol (Zyloprim) 300 mg DAILY PO Last administered on 06/29/18at 10:51; Admin Dose 300 MG; Start 06/25/18 at 01:13 Aspirin (Aspirin) 81 mg DAILY PO Last administered on 06/29/18at 10:51; Admin Dose 81 MG; Start 06/25/18 at 01:13 Atorvastatin Calcium (Lipitor) 20 mg QHS PO Last administered on 06/28/18at 20:34; Admin Dose 20 MG; Start 06/25/18 at 01:13 Clopidogrel Bisulfate (plaVIX) 75 mg DAILY PO Last administered on 06/29/18 10:51; Admin Dose 75 MG; Start 06/25/18 at 01:13 Isosorbide Mononitrate (Imdur) 120 mg DAILY PO Last administered on 06/28/18 16:11; Admin Dose 120 MG; Start 06/25/18 at 01:13 Metoprolol Tartrate (Lopressor) 25 mg BID PO Last administered on 06/28/18 20:38; Admin Dose 25 MG; Start 06/25/18 at 01:13 Tramadol HCl (Ultram) 50 mg Q6H PRN PO PAIN; Start 06/25/18 at 01:13 Lorazepam (Ativan) 0.5 mg Q8H PRN PO ANXIETY Last administered on 06/28/18 16:12; Admin Dose 0.5 MG; Start 06/25/18 at 01:13 Acetaminophen/ Hydrocodone Bitart ([place] (5/325)) 1 tab Q6H PRN PO PAIN LEVEL 4-6 Last administered on 06/29/18 14:09; Admin Dose 1 TAB; Start 06/25/18 at 01:13 Digoxin (Digoxin) 0.0625 mg DAILY@1300 PO Last administered on 06/29/18 12:33; Admin Dose 0.0625 MG; Start 06/25/18 at 01:13 Furosemide (Lasix) 40 mg DAILY PO Last administered on 06/28/18 16:01; Admin Dose 40 MG; Start 06/25/18 at 01:13 Celecoxib (Celebrex) 100 mg BID PO Last administered on 06/29/18 10:52; Admin Dose 100 MG; Start 06/25/18 at 01:13 Epoetin Calos (Epogen (Esrd)) 10,000 units MoWeFr@17 SC Last administered on 06/28/18 20:34; Admin Dose 10,000 UNITS; Start 06/25/18 at 01:13 Multivit/Ca Carb/ B Cmplx/FA/Prenat (Fany-Jose Luis) 1 tab DAILY PO Last administered on 06/29/18 10:51; Admin Dose 1 TAB; Start 06/25/18 at 01:13 Lidocaine (Lidoderm) 1 patch DAILY TD Last administered on 06/29/18 10:53; Admin Dose 1 PATCH; Start 06/25/18 at 01:13 Metoclopramide HCl (Reglan) 5 mg AC MEALS PO Last administered on 06/29/18 16:55; Admin Dose 5 MG; Start 06/25/18 at 01:13 Lisinopril (Zestril) 2.5 mg QHS PO Last administered on 06/28/18 20:37; Admin Dose 2.5 MG; Start 06/25/18 at 01:13 Lactulose (Enulose) 20 gm DAILY PRN PO CONSTIPATION; Start 06/25/18 at 01:13 Tamsulosin HCl (Flomax) 0.4 mg HS PO Last administered on 06/28/18 20:34; Admin Dose 0.4 MG; Start 06/25/18 at 01:13 Albumin Human 100 ml @ 100 mls/hr DURING DIALYSIS PRN IV BLOOD PRESSURE SUPPORT ; Start 06/25/18 at 01:13 Docusate Sodium (Colace) 100 mg Q12H PO Last administered on 06/29/18at 10:50; Admin Dose 100 MG; Start 06/25/18 at 09:00 Famotidine (Pepcid) 20 mg Q24H PO Last administered on 06/28/18 20:34; Admin Dose 20 MG; Start 06/25/18 at 21:00 Senna (Senokot) 1 tab HS PO Last administered on 06/27/18 21:24; Admin Dose 1 TAB; Start 06/25/18 at 21:00 Lactulose (Enulose) 20 gm DAILY PRN PO CONSTIPATION; Start 06/25/18 at 06:00 Bisacodyl (Dulcolax Supp) 10 mg DAILY PRN [place] CONSTIPATION; Start 06/25/18 at 06:00 Acetaminophen (Tylenol Tab) 650 mg Q4H PRN PO PAIN; Start 06/25/18 at 06:00 Tobramycin Sulfate (Tobrex 0.3% Oph Drop) 1 drop QID BOTH EYES Last administered on 06/29/18 16:55; Admin Dose 1 DROP; Start 06/25/18 at 21:00; Stop 07/02/18 at 20:59 Heparin Sodium (Porcine) (Heparin (1000 Units/ml)) 6,100 unit AFTER DIALYSIS CATHETER Last administered on 06/27/18at 20:28; Admin Dose 6,100 UNIT; Start 06/27/18 at 16:30 RUTH VAZQUEZ MD Jun 29, 2018 20:38
[2018-06-29] MEDS: FAMOTIDINE 20 MG TAB PO SCH (21:00)
[2018-06-29] MEDS: LISINOPRIL 5 MG TAB PO SCH (21:00)
[2018-06-29] MEDS: ATORVASTATIN 20 MG TAB PO SCH (21:00)
[2018-06-29] MEDS: TAMSULOSIN (SR) 0.4 MG CAP PO SCH (21:00)
[2018-06-29] MEDS: SENNA TAB PO SCH (21:00)
--- NOTE | 2018-06-29 21:22 | NUR ---
[facility] RN Weekly Summary Dates From: 06/24/18 to 06/29/18 Patient Name: VENANCIO SULTANA MR#: [id number] Height: 5 ft 10 in Weight: 218 lbs 4.122 oz 99.000 kg Reason for Visit: ENCEPHALOPATHY Precautions: Fall. Pressure Ulcer Date: 06/29/18 Time: 2121 User: HARPREET MCGRAW Short-term Goals: 1. No fall, no injury 2. Skin integrity will be maintained 3. Will have regular pattern of B&B 4. Free from pain Patient's progress: fair Short-term goals not met and reason/barriers: ongoing Bladder - level of function and accidents: 4, no accident Bowel - level of function and accidents: 1, incontinent Skin: Intact Status: Bruises to arm Treatment: Changes: Pain: Yes Level: 7/10 Location: Back Management: [place] 1 tab po q.6hrs prn. Tramadol PO prn Changes: No Functional levels: Self Care: 1 Transfers: 1 Locomotion: 1 Assistance requirements: Communication: 1 Social Cognition: 2 Safety awareness: No, Sometimes does not call for assistance Interdisciplinary interactions: . PT. OT. SW. RN Patient education: Yes, q.shift and prn on medication, safety, use of call, and more as documented Discharge needs: Ongoing Comorbid conditions: 1. Critical illness myopathy. 2. End-stage renal disease on hemodialysis. 3. Coronary artery disease, status post non-ST elevation myocardial infarction. 4. Pneumonia. 5. Dysphagia, on dysphagia soft diet. 6. 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 7. Hypertension. 8. Chronic heart failure. 9. Atrial fibrillation. 10. Impairments in self-care, mobility and cognition. Plan of Care continuation: Yes, continue current POC
[2018-06-30] VITALS (7 sets, daily range): BP systolic 104–153; BP diastolic 53–73; PULSE 76–87; RESP 18–19
[2018-06-30] MEDS: HEPARIN 1000 UNITS/ML 10 ML INJ CATHETER SCH (00:18)
--- NOTE | 2018-06-30 00:33 | NUR ---
Received post-HD report from PEPE Mcqueen. 1.5L removed. Latest VS taken: 138/63, PA 85, afebrile, O2 sat 100%. No complications, pt tolerated hemodialysis well.
--- NOTE | 2018-06-30 02:02 | NUR ---
Pt refused HS medications offered after hemodialysis despite encouragement. Will continue to monitor.
--- NOTE | 2018-06-30 05:27 | NUR ---
Pt awake, watching TV. No s/s of acute distress. No complaints of pain at this time. Respirations even and unlabored. VS WNL. Frequent checks done. Safety precautions in place. Kept comfortable. Will endorse accordingly.
[2018-06-30] MEDS: ALLOPURINOL 300 MG TAB PO SCH (08:11)
[2018-06-30] MEDS: FUROSEMIDE 40 MG TAB PO SCH (08:13)
[2018-06-30] MEDS: ACETAMINOPHEN 325 MG TAB PO PRN ×4 (08:13→11:50)
[2018-06-30] MEDS: METOPROLOL 25 MG TAB PO SCH ×2 (08:14→20:12)
[2018-06-30] MEDS: ISOSORBIDE MONONITRATE(SR)60 MG TAB PO SCH (08:14)
[2018-06-30] MEDS: ASPIRIN 81 MG TAB PO SCH (08:15)
[2018-06-30] MEDS: CLOPIDOGREL 75 MG TAB PO SCH (08:16)
[2018-06-30] MEDS: TOBRAMYCIN 0.3% 5 ML OPH BOTH EYES SCH ×4 (08:16→20:11)
[2018-06-30] MEDS: MULTIVIT/CA CARB/B CMPLX/FA TAB PO SCH (08:16)
[2018-06-30] MEDS: DOCUSATE SODIUM 100 MG CAP PO SCH ×2 (08:16→20:26)
[2018-06-30] MEDS: CELECOXIB 100 MG CAP PO SCH ×2 (08:16→20:12)
[2018-06-30] MEDS: METOCLOPRAMIDE 5 MG TAB PO SCH ×3 (08:16→17:05)
[2018-06-30] MEDS: LIDOCAINE 5% PATCH TD SCH (08:25)
--- NOTE | 2018-06-30 08:33 | PN ---
Date/Time of Note Date/Time of Note DATE: 06/30/18 TIME: 08:31 Subjective Comfortable, no complaints Objective Vital Signs Date Temp Pulse Resp B/P (MAP) Pulse Ox O2 O2 Flow FiO2 Time Delivery Rate 06/30/18 98.4 85 18 142/73 93 Nasal 02:00 (96) Cannula 06/30/18 3.0 00:51 Intake and Output 06/29/18 06/29/18 06/30/18 1414:59 22:59 06:59 IntakeIntake Total 1310 ml OutputOutput Total 0 ml 1900 ml BalanceBalance 1310 ml -1900 ml Exam pulm-cta max transfer Results/Medications Result Diagram: 06/30/18 0634 06/30/18 0634 Results 24 hrs Laboratory Tests Test 06/30/18 06:34 White Blood Count 12.2 #H Red Blood Count 3.42 L Hemoglobin 9.3 L Hematocrit 31.1 L Mean Corpuscular Volume 90.9 Mean Corpuscular Hemoglobin 27.2 L Mean Corpuscular Hemoglobin Concent 29.9 L Red Cell Distribution Width 15.4 H Platelet Count 326 Mean Platelet Volume 9.9 Immature Granulocytes % 2.400 H Neutrophils % 81.0 H Lymphocytes % 3.9 L Monocytes % 8.2 Eosinophils % 3.8 Basophils % 0.7 Nucleated Red Blood Cells % 0.0 Immature Granulocytes # 0.290 H Neutrophils # 9.9 H Lymphocytes # 0.5 L Monocytes # 1.0 H Eosinophils # 0.5 Basophils # 0.1 Nucleated Red Blood Cells # 0.0 Sodium Level 133 L Potassium Level 3.6 Chloride Level 92 L Carbon Dioxide Level 31 Anion Gap 10 Blood Urea Nitrogen 31 H Creatinine 4.10 H Est Glomerular Filtrat Rate mL/min Glucose Level 86 Calcium Level 8.2 L Iron Level 30 L Total Iron Binding Capacity 187 L Percent Iron Saturation 16 L Ferritin 762.0 H Total Bilirubin 0.4 Direct Bilirubin 0.00 Indirect Bilirubin 0.4 Aspartate Amino Transf (AST/SGOT) 39 Alanine Aminotransferase (ALT/SGPT) 27 Alkaline Phosphatase 237 H Total Protein 6.1 Albumin 3.3 Globulin 2.80 Albumin/Globulin Ratio 1.17 Medications Current Medications Acetaminophen (Tylenol Tab) 500 mg Q4H PRN PO MILD PAIN(1-3)OR ELEVATED TEMP; Start 06/25/18 at 01:13 Allopurinol (Zyloprim) 300 mg DAILY PO Last administered on 06/30/18 08:11; Admin Dose 300 MG; Start 06/25/18 at 01:13 Aspirin (Aspirin) 81 mg DAILY PO Last administered on 06/30/18 08:15; Admin Dose 81 MG; Start 06/25/18 at 01:13 Atorvastatin Calcium (Lipitor) 20 mg QHS PO Last administered on 06/28/18 20:34; Admin Dose 20 MG; Start 06/25/18 at 01:13 Clopidogrel Bisulfate (plaVIX) 75 mg DAILY PO Last administered on 06/30/18 08:16; Admin Dose 75 MG; Start 06/25/18 at 01:13 Isosorbide Mononitrate (Imdur) 120 mg DAILY PO Last administered on 06/30/18 08:14; Admin Dose 120 MG; Start 06/25/18 at 01:13 Metoprolol Tartrate (Lopressor) 25 mg BID PO Last administered on 06/30/18 08:14; Admin Dose 25 MG; Start 06/25/18 at 01:13 Tramadol HCl (Ultram) 50 mg Q6H PRN PO PAIN; Start 06/25/18 at 01:13 Lorazepam (Ativan) 0.5 mg Q8H PRN PO ANXIETY Last administered on 06/28/18 16:12; Admin Dose 0.5 MG; Start 06/25/18 at 01:13 Acetaminophen/ Hydrocodone Bitart ([place] (5/325)) 1 tab Q6H PRN PO PAIN LEVEL 4-6 Last administered on 06/29/18 14:09; Admin Dose 1 TAB; Start 06/25/18 at 01:13 Digoxin (Digoxin) 0.0625 mg DAILY@1300 PO Last administered on 06/29/18 12:33; Admin Dose 0.0625 MG; Start 06/25/18 at 01:13 Furosemide (Lasix) 40 mg DAILY PO Last administered on 06/30/18 08:13; Admin Dose 40 MG; Start 06/25/18 at 01:13 Celecoxib (Celebrex) 100 mg BID PO Last administered on 06/30/18 08:16; Admin Dose 100 MG; Start 06/25/18 at 01:13 Epoetin Calos (Epogen (Esrd)) 10,000 units MoWeFr@17 SC Last administered on 06/28/18 20:34; Admin Dose 10,000 UNITS; Start 06/25/18 at 01:13 Multivit/Ca Carb/ B Cmplx/FA/Prenat (Fany-Jose Luis) 1 tab DAILY PO Last administered on 06/30/18 08:16; Admin Dose 1 TAB; Start 06/25/18 at 01:13 Lidocaine (Lidoderm) 1 patch DAILY TD Last administered on 06/30/18 08:25; Admin Dose 1 PATCH; Start 06/25/18 at 01:13 Metoclopramide HCl (Reglan) 5 mg AC MEALS PO Last administered on 06/30/18 08:16; Admin Dose 5 MG; Start 06/25/18 at 01:13 Lisinopril (Zestril) 2.5 mg QHS PO Last administered on 06/28/18 20:37; Admin Dose 2.5 MG; Start 06/25/18 at 01:13 Lactulose (Enulose) 20 gm DAILY PRN PO CONSTIPATION; Start 06/25/18 at 01:13 Tamsulosin HCl (Flomax) 0.4 mg HS PO Last administered on 06/28/18 20:34; Admin Dose 0.4 MG; Start 06/25/18 at 01:13 Albumin Human 100 ml @ 100 mls/hr DURING DIALYSIS PRN IV BLOOD PRESSURE SUPPORT; Start 06/25/18 at 01:13 Docusate Sodium (Colace) 100 mg Q12H PO Last administered on 06/30/18 08:16; Admin Dose 100 MG; Start 06/25/18 at 09:00 Famotidine (Pepcid) 20 mg Q24H PO Last administered on 06/28/18 20:34; Admin Dose 20 MG; Start 06/25/18 at 21:00 Senna (Senokot) 1 tab HS PO Last administered on 06/27/18 21:24; Admin Dose 1 TAB; Start 06/25/18 at 21:00 Lactulose (Enulose) 20 gm DAILY PRN PO CONSTIPATION; Start 06/25/18 at 06:00 Bisacodyl (Dulcolax Supp) 10 mg DAILY PRN [place] CONSTIPATION; Start 06/25/18 at 06:00 Acetaminophen (Tylenol Tab) 650 mg Q4H PRN PO PAIN Last administered on 06/30/18at 08:13; Admin Dose 650 MG; Start 06/25/18 at 06:00 Tobramycin Sulfate (Tobrex 0.3% Oph Drop) 1 drop QID BOTH EYES Last administered on 06/30/18at 08:16; Admin Dose 1 DROP; Start 06/25/18 at 21:00; Stop 07/02/18 at 20:59 Heparin Sodium (Porcine) (Heparin (1000 Units/ml)) 6,100 unit AFTER DIALYSIS CATHETER Last administered on 06/30/18at 00:18; Admin Dose 6,100 UNIT; Start 06/27/18 at 16:30 Assessment/Plan Additional Assessment/Plan rehab- Toxic metabolic encephalopathy;Critical illness myopathy. Continue rehab program End-stage renal disease on hemodialysis- per renal Coronary artery disease, status post non-ST elevation myocardial infarction. Pneumonia. Dysphagia, on dysphagia soft diet. 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 Hypertension. Chronic heart failure. Atrial fibrillation. CARO RENEE MD Jun 30, 2018 08:33
--- NOTE | 2018-06-30 13:20 | PN ---
Date/Time of Note Date/Time of Note DATE: 06/30/18 TIME: 13:19 Assessment/Plan VTE Prophylaxis Risk score (from [facility])>0 risk: 5 SCD applied (from [facility]): No SCD contraindicated: low risk/ambulating Pharmacological prophylaxis: heparin Lines/Catheters IV Catheter Type (from [facility]): Central Line Central line still needed: Yes Urinary Cath still in place: No Assessment/Plan Problems: (1) End stage renal disease Status: Chronic Comment: Mp on hemodialysis although he is nonoliguric (2) Hypertension Status: Chronic Comment: Adequate control Qualifiers: Hypertension type: essential hypertension Qualified Codes: I10 - Essential (primary) hypertension (3) Hyperlipidemia Status: Chronic Comment: Stable on statin therapy Qualifiers: Hyperlipidemia type: pure hypercholesterolemia Qualified Codes: E78.00 - Pure hypercholesterolemia, unspecified (4) CAD (coronary artery disease) Status: Chronic Comment: Quiescent fortunately Qualifiers: Coronary Disease-Associated Artery/Lesion type: [place] artery [place] vs. transplanted heart: [place] heart Associated angina: with unstable angina Qualified Codes: I25.110 - Atherosclerotic heart disease of [place] coronary artery with unstable angina pectoris (5) Systolic CHF with reduced left ventricular function, NYHA class 3 Status: Chronic Comment: Compensated with medication therapy (6) Prostatic hypertrophy Status: Chronic Comment: Noted. Result Diagram: 06/30/18 0634 06/30/18 0634 Results 24hrs Laboratory Tests Test 06/30/18 06:34 White Blood Count 12.2 #H Red Blood Count 3.42 L Hemoglobin 9.3 L Hematocrit 31.1 L Mean Corpuscular Volume 90.9 Mean Corpuscular Hemoglobin 27.2 L Mean Corpuscular Hemoglobin Concent 29.9 L Red Cell Distribution Width 15.4 H Platelet Count 326 Mean Platelet Volume 9.9 Immature Granulocytes % 2.400 H Neutrophils % 81.0 H Lymphocytes % 3.9 L Monocytes % 8.2 Eosinophils % 3.8 Basophils % 0.7 Nucleated Red Blood Cells % 0.0 Immature Granulocytes # 0.290 H Neutrophils # 9.9 H Lymphocytes # 0.5 L Monocytes # 1.0 H Eosinophils # 0.5 Basophils # 0.1 Nucleated Red Blood Cells # 0.0 Sodium Level 133 L Potassium Level 3.6 Chloride Level 92 L Carbon Dioxide Level 31 Anion Gap 10 Blood Urea Nitrogen 31 H Creatinine 4.10 H Est Glomerular Filtrat Rate mL/min Glucose Level 86 Calcium Level 8.2 L Iron Level 30 L Total Iron Binding Capacity 187 L Percent Iron Saturation 16 L Ferritin 762.0 H Total Bilirubin 0.4 Direct Bilirubin 0.00 Indirect Bilirubin 0.4 Aspartate Amino Transf (AST/SGOT) 39 Alanine Aminotransferase (ALT/SGPT) 27 Alkaline Phosphatase 237 H Total Protein 6.1 Albumin 3.3 Globulin 2.80 Albumin/Globulin Ratio 1.17 Subjective 24 Hr Interval Summary Free Text/Dictation Reports he feels like he is getting a little bit better Constitutional: no complaints Respiratory: no complaints Cardiovascular: no complaints Exam/Review of Systems Vital Signs Vitals Vital Signs Date Temp Pulse Resp B/P (MAP) Pulse Ox O2 O2 Flow FiO2 Time Delivery Rate 06/30/18 Nasal 3.0 08:00 Cannula 06/30/18 98.2 87 18 145/63 94 07:00 (90) Intake and Output 06/29/18 06/29/18 06/30/18 1515:00 23:00 07:00 IntakeIntake Total 1310 ml OutputOutput Total 0 ml 1900 ml BalanceBalance 1310 ml -1900 ml Exam Constitutional: alert, oriented Respiratory: clear to auscultation, normal air movement Cardiovascular: regular rate and rhythm, nl pulses Medications Medications Current Medications Acetaminophen (Tylenol Tab) 500 mg Q4H PRN PO MILD PAIN(1-3)OR ELEVATED TEMP; Start 06/25/18 at 01:13 Allopurinol (Zyloprim) 300 mg DAILY PO Last administered on 06/30/18at 08:11; Admin Dose 300 MG; Start 06/25/18 at 01:13 Aspirin (Aspirin) 81 mg DAILY PO Last administered on 06/30/18at 08:15; Admin Dose 81 MG; Start 06/25/18 at 01:13 Atorvastatin Calcium (Lipitor) 20 mg QHS PO Last administered on 06/28/18 20:34; Admin Dose 20 MG; Start 06/25/18 at 01:13 Clopidogrel Bisulfate (plaVIX) 75 mg DAILY PO Last administered on 06/30/18at 08:16; Admin Dose 75 MG; Start 06/25/18 at 01:13 Isosorbide Mononitrate (Imdur) 120 mg DAILY PO Last administered on 06/30/18 08:14; Admin Dose 120 MG; Start 06/25/18 at 01:13 Metoprolol Tartrate (Lopressor) 25 mg BID PO Last administered on 06/30/18 08:14; Admin Dose 25 MG; Start 06/25/18 at 01:13 Tramadol HCl (Ultram) 50 mg Q6H PRN PO PAIN; Start 06/25/18 at 01:13 Lorazepam (Ativan) 0.5 mg Q8H PRN PO ANXIETY Last administered on 06/28/18 16:12; Admin Dose 0.5 MG; Start 06/25/18 at 01:13 Acetaminophen/ Hydrocodone Bitart ([place] (5/325)) 1 tab Q6H PRN PO PAIN LEVEL 4-6 Last administered on 06/29/18 14:09; Admin Dose 1 TAB; Start 06/25/18 at 01:13 Digoxin (Digoxin) 0.0625 mg DAILY@1300 PO Last administered on 06/29/18 12:33; Admin Dose 0.0625 MG; Start 06/25/18 at 01:13 Furosemide (Lasix) 40 mg DAILY PO Last administered on 06/30/18 08:13; Admin Dose 40 MG; Start 06/25/18 at 01:13 Celecoxib (Celebrex) 100 mg BID PO Last administered on 06/30/18 08:16; Admin Dose 100 MG; Start 06/25/18 at 01:13 Epoetin Calos (Epogen (Esrd)) 10,000 units MoWeFr@17 SC Last administered on 06/28/18 20:34; Admin Dose 10,000 UNITS; Start 06/25/18 at 01:13 Multivit/Ca Carb/ B Cmplx/FA/Prenat (Fany-Jose Luis) 1 tab DAILY PO Last administered on 06/30/18 08:16; Admin Dose 1 TAB; Start 06/25/18 at 01:13 Lidocaine (Lidoderm) 1 patch DAILY TD Last administered on 06/30/18 08:25; Admin Dose 1 PATCH; Start 06/25/18 at 01:13 Metoclopramide HCl (Reglan) 5 mg AC MEALS PO Last administered on 06/30/18 11:53; Admin Dose 5 MG; Start 06/25/18 at 01:13 Lisinopril (Zestril) 2.5 mg QHS PO Last administered on 06/28/18at 20:37; Admin Dose 2.5 MG; Start 06/25/18 at 01:13 Lactulose (Enulose) 20 gm DAILY PRN PO CONSTIPATION; Start 06/25/18 at 01:13 Tamsulosin HCl (Flomax) 0.4 mg HS PO Last administered on 06/28/18 20:34; Admin Dose 0.4 MG; Start 06/25/18 at 01:13 Albumin Human 100 ml @ 100 mls/hr DURING DIALYSIS PRN IV BLOOD PRESSURE SUPPORT; Start 06/25/18 at 01:13 Docusate Sodium (Colace) 100 mg Q12H PO Last administered on 06/30/18at 08:16; Admin Dose 100 MG; Start 06/25/18 at 09:00 Famotidine (Pepcid) 20 mg Q24H PO Last administered on 06/28/18at 20:34; Admin Dose 20 MG; Start 06/25/18 at 21:00 Senna (Senokot) 1 tab HS PO Last administered on 06/27/18at 21:24; Admin Dose 1 TAB; Start 06/25/18 at 21:00 Lactulose (Enulose) 20 gm DAILY PRN PO CONSTIPATION; Start 06/25/18 at 06:00 Bisacodyl (Dulcolax Supp) 10 mg DAILY PRN [place] CONSTIPATION; Start 06/25/18 at 06:00 Acetaminophen (Tylenol Tab) 650 mg Q4H PRN PO PAIN Last administered on 06/30/18at 11:50; Admin Dose 650 MG; Start 06/25/18 at 06:00 Tobramycin Sulfate (Tobrex 0.3% Oph Drop) 1 drop QID BOTH EYES Last administered on 06/30/18at 08:16; Admin Dose 1 DROP; Start 06/25/18 at 21:00; Stop 07/02/18 at 20:59 Heparin Sodium (Porcine) (Heparin (1000 Units/ml)) 6,100 unit AFTER DIALYSIS CATHETER Last administered on 06/30/18at 00:18; Admin Dose 6,100 UNIT; Start 06/27/18 at 16:30 Docusate Sodium/ Ferrous Fumarate ([place]) 1 tab BID PO ; Start 06/30/18 at 21:00; Stop 07/30/18 at 20:59; Status UNV RUTH VAZQUEZ MD Jun 30, 2018 13:20
[2018-06-30] MEDS: DIGOXIN 0.125 MG TAB PO SCH (14:44)
--- NOTE | 2018-06-30 18:21 | NUR ---
Patient resting in bed with bed alarm on and call light in reach. He was medicated for general body pain with tylenol po today. He did attempt to use BSC with two person assist today, but was unable to perform the task as he was to weak. assisted with bedpan instead for BM with good results.
--- NOTE | 2018-06-30 19:25 | CONS ---
Date/Time of Note Date/Time of Note DATE: 06/30/18 TIME: 19:22 Assessment/Plan Assessment/Plan Assessment/Plan Assessment/Plan 1. End-stage renal disease on maintenance hemodialysis Sunday. for hd sunday 2. Metabolic encephalopathy , better today. cont to monitor. cont pt 3. leukocytosis. wbc mildly elevated. am lab 4. Coronary artery disease, recent NSTEMI 5. Critical illness myopathy . He is still quite weak. cont pt 6. Paroxysmal atrial fibrillation: rate controlled 7. Anemia of chronic kidney disease: on epogen. monitor and transfuse prn Result Diagram: 06/30/18 0634 06/30/18 0634 Results 24hrs Laboratory Tests Test 06/30/18 06:34 White Blood Count 12.2 #H Red Blood Count 3.42 L Hemoglobin 9.3 L Hematocrit 31.1 L Mean Corpuscular Volume 90.9 Mean Corpuscular Hemoglobin 27.2 L Mean Corpuscular Hemoglobin Concent 29.9 L Red Cell Distribution Width 15.4 H Platelet Count 326 Mean Platelet Volume 9.9 Immature Granulocytes % 2.400 H Neutrophils % 81.0 H Lymphocytes % 3.9 L Monocytes % 8.2 Eosinophils % 3.8 Basophils % 0.7 Nucleated Red Blood Cells % 0.0 Immature Granulocytes # 0.290 H Neutrophils # 9.9 H Lymphocytes # 0.5 L Monocytes # 1.0 H Eosinophils # 0.5 Basophils # 0.1 Nucleated Red Blood Cells # 0.0 Sodium Level 133 L Potassium Level 3.6 Chloride Level 92 L Carbon Dioxide Level 31 Anion Gap 10 Blood Urea Nitrogen 31 H Creatinine 4.10 H Est Glomerular Filtrat Rate mL/min Glucose Level 86 Calcium Level 8.2 L Iron Level 30 L Total Iron Binding Capacity 187 L Percent Iron Saturation 16 L Ferritin 762.0 H Total Bilirubin 0.4 Direct Bilirubin 0.00 Indirect Bilirubin 0.4 Aspartate Amino Transf (AST/SGOT) 39 Alanine Aminotransferase (ALT/SGPT) 27 Alkaline Phosphatase 237 H Total Protein 6.1 Albumin 3.3 Globulin 2.80 Albumin/Globulin Ratio 1.17 Consultation Date/Type/Reason Admit Date/Time Jun 24, 2018 at 21:30 Initial Consult Date 24 HR Interval Summary Free Text/Dictation much better today. aox4. daughter at bedside. very weak Exam/Review of Systems Vital Signs Vitals Vital Signs Date Temp Pulse Resp B/P (MAP) Pulse Ox O2 O2 Flow FiO2 Time Delivery Rate 06/30/18 98.0 76 18 127/58 95 Nasal 3.0 19:17 (81) Cannula Intake and Output 06/29/18 06/29/18 06/30/18 1515:00 23:00 07:00 IntakeIntake Total 1310 ml OutputOutput Total 0 ml 1900 ml BalanceBalance 1310 ml -1900 ml Exam Constitutional: alert, frail Psych: no complaints Head: normocephalic Eyes: nl conjunctiva Neck: supple, jvd Respiratory: diminished breath sounds Cardiovascular: regular rate and rhythm, edema Medications Medications Current Medications Acetaminophen (Tylenol Tab) 500 mg Q4H PRN PO MILD PAIN(1-3)OR ELEVATED TEMP; Start 06/25/18 at 01:13 Allopurinol (Zyloprim) 300 mg DAILY PO Last administered on 06/30/18 08:11; Admin Dose 300 MG; Start 06/25/18 at 01:13 Aspirin (Aspirin) 81 mg DAILY PO Last administered on 06/30/18 08:15; Admin Dose 81 MG; Start 06/25/18 at 01:13 Atorvastatin Calcium (Lipitor) 20 mg QHS PO Last administered on 06/28/18 20:34; Admin Dose 20 MG; Start 06/25/18 at 01:13 Clopidogrel Bisulfate (plaVIX) 75 mg DAILY PO Last administered on 06/30/18 08:16; Admin Dose 75 MG; Start 06/25/18 at 01:13 Isosorbide Mononitrate (Imdur) 120 mg DAILY PO Last administered on 06/30/18 08:14; Admin Dose 120 MG; Start 06/25/18 at 01:13 Metoprolol Tartrate (Lopressor) 25 mg BID PO Last administered on 06/30/18 08:14; Admin Dose 25 MG; Start 06/25/18 at 01:13 Tramadol HCl (Ultram) 50 mg Q6H PRN PO PAIN; Start 06/25/18 at 01:13 Lorazepam (Ativan) 0.5 mg Q8H PRN PO ANXIETY Last administered on 06/28/18 16:12; Admin Dose 0.5 MG; Start 06/25/18 at 01:13 Acetaminophen/ Hydrocodone Bitart ([place] (5/325)) 1 tab Q6H PRN PO PAIN LEVEL 4-6 Last administered on 06/29/18 14:09; Admin Dose 1 TAB; Start 06/25/18 at 01:13 Digoxin (Digoxin) 0.0625 mg DAILY@1300 PO Last administered on 06/30/18 14:44; Admin Dose 0.0625 MG; Start 06/25/18 at 01:13 Furosemide (Lasix) 40 mg DAILY PO Last administered on 06/30/18 08:13; Admin Dose 40 MG; Start 06/25/18 at 01:13 Celecoxib (Celebrex) 100 mg BID PO Last administered on 06/30/18 08:16; Admin Dose 100 MG; Start 06/25/18 at 01:13 Epoetin Calos (Epogen (Esrd)) 10,000 units MoWeFr@17 SC Last administered on 06/28/18 20:34; Admin Dose 10,000 UNITS; Start 06/25/18 at 01:13 Multivit/Ca Carb/ B Cmplx/FA/Prenat (Fany-Jose Luis) 1 tab DAILY PO Last administered on 06/30/18 08:16; Admin Dose 1 TAB; Start 06/25/18 at 01:13 Lidocaine (Lidoderm) 1 patch DAILY TD Last administered on 06/30/18 08:25; Admin Dose 1 PATCH; Start 06/25/18 at 01:13 Metoclopramide HCl (Reglan) 5 mg AC MEALS PO Last administered on 06/30/18 11:53; Admin Dose 5 MG; Start 06/25/18 at 01:13 Lisinopril (Zestril) 2.5 mg QHS PO Last administered on 06/28/18 20:37; Admin Dose 2.5 MG; Start 06/25/18 at 01:13 Lactulose (Enulose) 20 gm DAILY PRN PO CONSTIPATION; Start 06/25/18 at 01:13 Tamsulosin HCl (Flomax) 0.4 mg HS PO Last administered on 06/28/18 20:34; Admin Dose 0.4 MG; Start 06/25/18 at 01:13 Albumin Human 100 ml @ 100 mls/hr DURING DIALYSIS PRN IV BLOOD PRESSURE SUPPORT; Start 06/25/18 at 01:13 Docusate Sodium (Colace) 100 mg Q12H PO Last administered on 06/30/18at 08:16; Admin Dose 100 MG; Start 06/25/18 at 09:00 Famotidine (Pepcid) 20 mg Q24H PO Last administered on 06/28/18at 20:34; Admin Dose 20 MG; Start 06/25/18 at 21:00 Senna (Senokot) 1 tab HS PO Last administered on 06/27/18at 21:24; Admin Dose 1 TAB; Start 06/25/18 at 21:00 Lactulose (Enulose) 20 gm DAILY PRN PO CONSTIPATION; Start 06/25/18 at 06:00 Bisacodyl (Dulcolax Supp) 10 mg DAILY PRN [place] CONSTIPATION; Start 06/25/18 at 06:00 Acetaminophen (Tylenol Tab) 650 mg Q4H PRN PO PAIN Last administered on 06/30/18at 11:50; Admin Dose 650 MG; Start 06/25/18 at 06:00 Tobramycin Sulfate (Tobrex 0.3% Oph Drop) 1 drop QID BOTH EYES Last administered on 06/30/18at 14:45; Admin Dose 1 DROP; Start 06/25/18 at 21:00; Stop 07/02/18 at 20:59 Heparin Sodium (Porcine) (Heparin (1000 Units/ml)) 6,100 unit AFTER DIALYSIS CATHETER Last administered on 06/30/18at 00:18; Admin Dose 6,100 UNIT; Start 06/27/18 at 16:30 Docusate Sodium/ Ferrous Fumarate (Shaw-Sequels) 1 tab BID PO ; Start 06/30/18 at 21:00; Stop 07/30/18 at 20:59 BENITO PEREZ MD Jun 30, 2018 19:25
[2018-06-30] MEDS: FAMOTIDINE 20 MG TAB PO SCH (20:11)
[2018-06-30] MEDS: ATORVASTATIN 20 MG TAB PO SCH (20:11)
[2018-06-30] MEDS: TAMSULOSIN (SR) 0.4 MG CAP PO SCH (20:11)
[2018-06-30] MEDS: LISINOPRIL 5 MG TAB PO SCH (20:12)
[2018-06-30] MEDS: FERROUS FUMARATE (SR) TAB PO SCH (20:19)
[2018-06-30] MEDS: SENNA TAB PO SCH (20:27)
--- NOTE | 2018-07-01 06:00 | NUR ---
PATIENT SLEPT ON AND OFF. 02 AT 3L/MIN VIA NC. SOB ON EXERTION. RT FEMORAL PERMA CATH IN PLACE. RECREATIONAL ACTIVITIES PROVIDED TO PATIENT.WATCHING TV, CALL LIGHT WITHIN REACH. NO ACUTE DISTRESS NOTED
[2018-07-01] MEDS: METOCLOPRAMIDE 5 MG TAB PO SCH ×4 (07:14→18:12)
[2018-07-01 07:30] VITALS: BP 134/63; PULSE 77; RESP 20
[2018-07-01] MEDS: METOPROLOL 25 MG TAB PO SCH ×2 (09:00→20:12)
[2018-07-01] MEDS: TOBRAMYCIN 0.3% 5 ML OPH BOTH EYES SCH ×4 (10:50→20:11)
[2018-07-01] MEDS: LORAZEPAM 0.5 MG TAB PO PRN (10:50)
[2018-07-01] MEDS: FERROUS FUMARATE (SR) TAB PO SCH ×2 (10:51→20:11)
[2018-07-01] MEDS: CELECOXIB 100 MG CAP PO SCH ×2 (10:51→20:12)
[2018-07-01] MEDS: ALLOPURINOL 300 MG TAB PO SCH (10:51)
[2018-07-01] MEDS: ISOSORBIDE MONONITRATE(SR)60 MG TAB PO SCH (10:52)
[2018-07-01] MEDS: ASPIRIN 81 MG TAB PO SCH (10:52)
[2018-07-01] MEDS: DOCUSATE SODIUM 100 MG CAP PO SCH ×2 (10:52→20:12)
[2018-07-01] MEDS: CLOPIDOGREL 75 MG TAB PO SCH (10:52)
[2018-07-01] MEDS: MULTIVIT/CA CARB/B CMPLX/FA TAB PO SCH (10:52)
[2018-07-01] MEDS: FUROSEMIDE 40 MG TAB PO SCH (10:53)
[2018-07-01] MEDS: LIDOCAINE 5% PATCH TD SCH (10:54)
[2018-07-01] MEDS: DIGOXIN 0.125 MG TAB PO SCH ×2 (13:00→18:08)
--- NOTE | 2018-07-01 13:35 | PN ---
Date/Time of Note Date/Time of Note DATE: 07/01/18 TIME: 13:32 Assessment/Plan VTE [place] [facility] [place]: 5 [place] [facility] [place] SCD contraindicated: low risk/ambulating Pharmacological prophylaxis: NA/contraindicated Pharm contraindication: bleeding, renal impairment Lines/Catheters [facility] Central Line Central line still needed: Yes Urinary Cath still in place: No Assessment/Plan Result Diagram: 07/01/18 0636 07/01/18 0636 Results 24hrs Laboratory Tests Test 07/01/18 06:36 White Blood Count 11.9 H Red Blood Count 3.06 L Hemoglobin 8.3 L Hematocrit 27.8 L Mean Corpuscular Volume 90.8 Mean Corpuscular Hemoglobin 27.1 L Mean Corpuscular Hemoglobin Concent 29.9 L Red Cell Distribution Width 15.6 H Platelet Count 330 Mean Platelet Volume 10.4 Immature Granulocytes % 1.800 H Neutrophils % 79.9 H Lymphocytes % 5.0 L Monocytes % 8.3 Eosinophils % 4.5 Basophils % 0.5 Nucleated Red Blood Cells % 0.0 Immature Granulocytes # 0.210 H Neutrophils # 9.5 H Lymphocytes # 0.6 L Monocytes # 1.0 H Eosinophils # 0.5 Basophils # 0.1 Nucleated Red Blood Cells # 0.0 Sodium Level 133 L Potassium Level 3.9 Chloride Level 92 L Carbon Dioxide Level 27 Anion Gap 14 H Blood Urea Nitrogen 49 #H Creatinine 5.34 H Est Glomerular Filtrat Rate mL/min Glucose Level 97 Calcium Level 8.2 L Total Bilirubin 0.2 Direct Bilirubin 0.00 Indirect Bilirubin 0.2 Aspartate Amino Transf (AST/SGOT) 35 Alanine Aminotransferase (ALT/SGPT) 24 Alkaline Phosphatase 223 H Total Protein 5.5 L Albumin 3.0 L Globulin 2.50 Albumin/Globulin Ratio 1.20 Subjective 24 Hr Interval Summary Free Text/Dictation still lots of problems getting him up.not clear that there will be adequate care at home, family to consider. wbc continues to come down, other labs stable he is certainly more lucid, eating lungs clear, hr ok, no edema Exam/Review of Systems Vital Signs Vitals Vital Signs Date Temp Pulse Resp B/P (MAP) Pulse Ox O2 O2 Flow FiO2 Time Delivery Rate 07/01/18 98.2 77 20 134/63 93 Room Air 07:30 (86) Nasal Cannula 06/30/18 2.0 23:00 Intake and Output 06/30/18 06/30/18 07/01/18 1515:00 23:00 07:00 IntakeIntake Total 1200 ml 280 ml OutputOutput Total 200 ml BalanceBalance 1000 ml 280 ml Medications Medications Current Medications Acetaminophen (Tylenol Tab) 500 mg Q4H PRN PO MILD PAIN(1-3)OR ELEVATED TEMP; Start 06/25/18 at 01:13 Allopurinol (Zyloprim) 300 mg DAILY PO Last administered on 07/01/18 10:51; Admin Dose 300 MG; Start 06/25/18 at 01:13 Aspirin (Aspirin) 81 mg DAILY PO Last administered on 07/01/18 10:52; Admin Dose 81 MG; Start 06/25/18 at 01:13 Atorvastatin Calcium (Lipitor) 20 mg QHS PO Last administered on 06/30/18 20:11; Admin Dose 20 MG; Start 06/25/18 at 01:13 Clopidogrel Bisulfate (plaVIX) 75 mg DAILY PO Last administered on 07/01/18 10:52; Admin Dose 75 MG; Start 06/25/18 at 01:13 Isosorbide Mononitrate (Imdur) 120 mg DAILY PO Last administered on 07/01/18 10:52; Admin Dose 120 MG; Start 06/25/18 at 01:13 Metoprolol Tartrate (Lopressor) 25 mg BID PO Last administered on 06/30/18 20:12; Admin Dose 25 MG; Start 06/25/18 at 01:13 Tramadol HCl (Ultram) 50 mg Q6H PRN PO PAIN; Start 06/25/18 at 01:13 Lorazepam (Ativan) 0.5 mg Q8H PRN PO ANXIETY Last administered on 07/01/18 10:50; Admin Dose 0.5 MG; Start 06/25/18 at 01:13 Acetaminophen/ Hydrocodone Bitart ([place] (5/325)) 1 tab Q6H PRN PO PAIN LEVEL 4-6 Last administered on 06/29/18 14:09; Admin Dose 1 TAB; Start 06/25/18 at 01:13 Digoxin (Digoxin) 0.0625 mg DAILY@1300 PO Last administered on 06/30/18 14:44; Admin Dose 0.0625 MG; Start 06/25/18 at 01:13 Furosemide (Lasix) 40 mg DAILY PO Last administered on 07/01/18 10:53; Admin Dose 40 MG; Start 06/25/18 at 01:13 Celecoxib (Celebrex) 100 mg BID PO Last administered on 07/01/18 10:51; Admin Dose 100 MG; Start 06/25/18 at 01:13 Epoetin Calos (Epogen (Esrd)) 10,000 units MoWeFr@17 SC Last administered on 06/28/18 20:34; Admin Dose 10,000 UNITS; Start 06/25/18 at 01:13 Multivit/Ca Carb/ B Cmplx/FA/Prenat (Fany-Jose Luis) 1 tab DAILY PO Last administered on 07/01/18 10:52; Admin Dose 1 TAB; Start 06/25/18 at 01:13 Lidocaine (Lidoderm) 1 patch DAILY TD Last administered on 07/01/18 10:54; Admin Dose 1 PATCH; Start 06/25/18 at 01:13 Metoclopramide HCl (Reglan) 5 mg AC MEALS PO Last administered on 07/01/18 07:14; Admin Dose 5 MG; Start 06/25/18 at 01:13 Lisinopril (Zestril) 2.5 mg QHS PO Last administered on 06/30/18 20:12; Admin Dose 2.5 MG; Start 06/25/18 at 01:13 Lactulose (Enulose) 20 gm DAILY PRN PO CONSTIPATION; Start 06/25/18 at 01:13 Tamsulosin HCl (Flomax) 0.4 mg HS PO Last administered on 06/30/18 20:11; Admin Dose 0.4 MG; Start 06/25/18 at 01:13 Albumin Human 100 ml @ 100 mls/hr DURING DIALYSIS PRN IV BLOOD PRESSURE SUPPORT; Start 06/25/18 at 01:13 Docusate Sodium (Colace) 100 mg Q12H PO Last administered on 07/01/18 10:52; Admin Dose 100 MG; Start 06/25/18 at 09:00 Famotidine (Pepcid) 20 mg Q24H PO Last administered on 06/30/18 20:11; Admin Dose 20 MG; Start 06/25/18 at 21:00 Senna (Senokot) 1 tab HS PO Last administered on 06/27/18at 21:24; Admin Dose 1 TAB; Start 06/25/18 at 21:00 Lactulose (Enulose) 20 gm DAILY PRN PO CONSTIPATION; Start 06/25/18 at 06:00 Bisacodyl (Dulcolax Supp) 10 mg DAILY PRN [place] CONSTIPATION; Start 06/25/18 at 06:00 Acetaminophen (Tylenol Tab) 650 mg Q4H PRN PO PAIN Last administered on 06/30/18at 11:50; Admin Dose 650 MG; Start 06/25/18 at 06:00 Tobramycin Sulfate (Tobrex 0.3% Oph Drop) 1 drop QID BOTH EYES Last administered on 07/01/18at 10:50; Admin Dose 1 DROP; Start 06/25/18 at 21:00; Stop 07/02/18 at 20:59 Heparin Sodium (Porcine) (Heparin (1000 Units/ml)) 6,100 unit AFTER DIALYSIS CATHETER Last administered on 06/30/18at 00:18; Admin Dose 6,100 UNIT; Start 06/27/18 at 16:30 Docusate Sodium/ Ferrous Fumarate (Shaw-Sequels) 1 tab BID PO Last administered on 07/01/18at 10:51; Admin Dose 1 TAB; Start 06/30/18 at 21:00; Stop 07/30/18 at 20:59 MELLO SAUER MD Jul 01, 2018 13:35
[2018-07-01 14:00] VITALS: BP 113/53; PULSE 90; RESP 20
--- NOTE | 2018-07-01 14:06 | PN ---
Date/Time of Note Date/Time of Note DATE: 07/01/18 TIME: 14:06 Objective Vital Signs Date Temp Pulse Resp B/P (MAP) Pulse Ox O2 O2 Flow FiO2 Time Delivery Rate 07/01/18 98.2 77 20 134/63 93 Room Air 07:30 (86) Nasal Cannula 06/30/18 2.0 23:00 Intake and Output 06/30/18 06/30/18 07/01/18 1515:00 23:00 07:00 IntakeIntake Total 1200 ml 280 ml OutputOutput Total 200 ml BalanceBalance 1000 ml 280 ml Exam Interdisciplinary Team Conference Exam Physical Exam: Pulm-cta Abd-soft BOWEL- Cont BLADDER-Cont/incont SKIN- improving OT- DRESSING- max BATHING-max TOILETING-max PT- BED MOBILITY-max TRANSFERS-max WHEELCHAIR MOBILITY- MAX SPEECH- COGNITION-max Dysphagia- SOFT diet A/P- Interdisciplinary team conference held today. Please see interdisciplinary sheet. Working toward d.c. on with post discharge follow up of physical therapy, occupational therapy. SW working with family on discharge planning Results/Medications Result Diagram: 07/01/18 0636 07/01/18 0636 Results 24 hrs Laboratory Tests Test 07/01/18 06:36 White Blood Count 11.9 H Red Blood Count 3.06 L Hemoglobin 8.3 L Hematocrit 27.8 L Mean Corpuscular Volume 90.8 Mean Corpuscular Hemoglobin 27.1 L Mean Corpuscular Hemoglobin Concent 29.9 L Red Cell Distribution Width 15.6 H Platelet Count 330 Mean Platelet Volume 10.4 Immature Granulocytes % 1.800 H Neutrophils % 79.9 H Lymphocytes % 5.0 L Monocytes % 8.3 Eosinophils % 4.5 Basophils % 0.5 Nucleated Red Blood Cells % 0.0 Immature Granulocytes # 0.210 H Neutrophils # 9.5 H Lymphocytes # 0.6 L Monocytes # 1.0 H Eosinophils # 0.5 Basophils # 0.1 Nucleated Red Blood Cells # 0.0 Sodium Level 133 L Potassium Level 3.9 Chloride Level 92 L Carbon Dioxide Level 27 Anion Gap 14 H Blood Urea Nitrogen 49 #H Creatinine 5.34 H Est Glomerular Filtrat Rate mL/min Glucose Level 97 Calcium Level 8.2 L Total Bilirubin 0.2 Direct Bilirubin 0.00 Indirect Bilirubin 0.2 Aspartate Amino Transf (AST/SGOT) 35 Alanine Aminotransferase (ALT/SGPT) 24 Alkaline Phosphatase 223 H Total Protein 5.5 L Albumin 3.0 L Globulin 2.50 Albumin/Globulin Ratio 1.20 Medications Current Medications Acetaminophen (Tylenol Tab) 500 mg Q4H PRN PO MILD PAIN(1-3)OR ELEVATED TEMP; Start 06/25/18 at 01:13 Allopurinol (Zyloprim) 300 mg DAILY PO Last administered on 07/01/18 10:51; Admin Dose 300 MG; Start 06/25/18 at 01:13 Aspirin (Aspirin) 81 mg DAILY PO Last administered on 07/01/18 10:52; Admin Dose 81 MG; Start 06/25/18 at 01:13 Atorvastatin Calcium (Lipitor) 20 mg QHS PO Last administered on 06/30/18 20:11; Admin Dose 20 MG; Start 06/25/18 at 01:13 Clopidogrel Bisulfate (plaVIX) 75 mg DAILY PO Last administered on 07/01/18 10:52; Admin Dose 75 MG; Start 06/25/18 at 01:13 Isosorbide Mononitrate (Imdur) 120 mg DAILY PO Last administered on 07/01/18 10:52; Admin Dose 120 MG; Start 06/25/18 at 01:13 Metoprolol Tartrate (Lopressor) 25 mg BID PO Last administered on 06/30/18 20:12; Admin Dose 25 MG; Start 06/25/18 at 01:13 Tramadol HCl (Ultram) 50 mg Q6H PRN PO PAIN; Start 06/25/18 at 01:13 Lorazepam (Ativan) 0.5 mg Q8H PRN PO ANXIETY Last administered on 07/01/18 10:50; Admin Dose 0.5 MG; Start 06/25/18 at 01:13 Acetaminophen/ Hydrocodone Bitart ([place] (5/325)) 1 tab Q6H PRN PO PAIN LEVEL 4-6 Last administered on 06/29/18 14:09; Admin Dose 1 TAB; Start 06/25/18 at 01:13 Digoxin (Digoxin) 0.0625 mg DAILY@1300 PO Last administered on 06/30/18 14:44; Admin Dose 0.0625 MG; Start 06/25/18 at 01:13 Furosemide (Lasix) 40 mg DAILY PO Last administered on 07/01/18 10:53; Admin Dose 40 MG; Start 06/25/18 at 01:13 Celecoxib (Celebrex) 100 mg BID PO Last administered on 07/01/18 10:51; Admin Dose 100 MG; Start 06/25/18 at 01:13 Epoetin Calos (Epogen (Esrd)) 10,000 units MoWeFr@17 SC Last administered on 06/28/18 20:34; Admin Dose 10,000 UNITS; Start 06/25/18 at 01:13 Multivit/Ca Carb/ B Cmplx/FA/Prenat (Fany-Jose Luis) 1 tab DAILY PO Last administered on 07/01/18 10:52; Admin Dose 1 TAB; Start 06/25/18 at 01:13 Lidocaine (Lidoderm) 1 patch DAILY TD Last administered on 07/01/18 10:54; Admin Dose 1 PATCH; Start 06/25/18 at 01:13 Metoclopramide HCl (Reglan) 5 mg AC MEALS PO Last administered on 07/01/18 07:14; Admin Dose 5 MG; Start 06/25/18 at 01:13 Lisinopril (Zestril) 2.5 mg QHS PO Last administered on 06/30/18 20:12; Admin Dose 2.5 MG; Start 06/25/18 at 01:13 Lactulose (Enulose) 20 gm DAILY PRN PO CONSTIPATION; Start 06/25/18 at 01:13 Tamsulosin HCl (Flomax) 0.4 mg HS PO Last administered on 06/30/18 20:11; Admin Dose 0.4 MG; Start 06/25/18 at 01:13 Albumin Human 100 ml @ 100 mls/hr DURING DIALYSIS PRN IV BLOOD PRESSURE SUPPORT; Start 06/25/18 at 01:13 Docusate Sodium (Colace) 100 mg Q12H PO Last administered on 07/01/18 10:52; Admin Dose 100 MG; Start 06/25/18 at 09:00 Famotidine (Pepcid) 20 mg Q24H PO Last administered on 06/30/18 20:11; Admin Dose 20 MG; Start 06/25/18 at 21:00 Senna (Senokot) 1 tab HS PO Last administered on 06/27/18 21:24; Admin Dose 1 TAB; Start 06/25/18 at 21:00 Lactulose (Enulose) 20 gm DAILY PRN PO CONSTIPATION; Start 06/25/18 at 06:00 Bisacodyl (Dulcolax Supp) 10 mg DAILY PRN [place] CONSTIPATION; Start 06/25/18 at 06:00 Acetaminophen (Tylenol Tab) 650 mg Q4H PRN PO PAIN Last administered on 06/30/18at 11:50; Admin Dose 650 MG; Start 06/25/18 at 06:00 Tobramycin Sulfate (Tobrex 0.3% Oph Drop) 1 drop QID BOTH EYES Last administered on 07/01/18at 10:50; Admin Dose 1 DROP; Start 06/25/18 at 21:00; Stop 07/02/18 at 20:59 Heparin Sodium (Porcine) (Heparin (1000 Units/ml)) 6,100 unit AFTER DIALYSIS CATHETER Last administered on 06/30/18at 00:18; Admin Dose 6,100 UNIT; Start 06/27/18 at 16:30 Docusate Sodium/ Ferrous Fumarate (Shaw-Sequels) 1 tab BID PO Last administered on 07/01/18at 10:51; Admin Dose 1 TAB; Start 06/30/18 at 21:00; Sto p 07/30/18 at 20:59 CARO RENEE MD Jul 01, 2018 14:06
--- NOTE | 2018-07-01 17:58 | CONS ---
Date/Time of Note Date/Time of Note DATE: 07/01/18 TIME: 17:57 Assessment/Plan Assessment/Plan Assessment/Plan 1. End-stage renal disease on maintenance hemodialysis Sunday. for hd in am 2. Metabolic encephalopathy , better today. cont to monitor. cont pt 3. leukocytosis. wbc mildly elevated. am lab. afebrile 4. Coronary artery disease, recent NSTEMI 5. Critical illness myopathy . He is still quite weak. cont pt. dw with acute rehab staff regarding snf placement 6. Paroxysmal atrial fibrillation: rate controlled 7. Anemia of chronic kidney disease: on epogen. monitor and transfuse prn Result Diagram: 07/01/18 0636 07/01/18 0636 Results 24hrs Laboratory Tests Test 07/01/18 06:36 White Blood Count 11.9 H Red Blood Count 3.06 L Hemoglobin 8.3 L Hematocrit 27.8 L Mean Corpuscular Volume 90.8 Mean Corpuscular Hemoglobin 27.1 L Mean Corpuscular Hemoglobin Concent 29.9 L Red Cell Distribution Width 15.6 H Platelet Count 330 Mean Platelet Volume 10.4 Immature Granulocytes % 1.800 H Neutrophils % 79.9 H Lymphocytes % 5.0 L Monocytes % 8.3 Eosinophils % 4.5 Basophils % 0.5 Nucleated Red Blood Cells % 0.0 Immature Granulocytes # 0.210 H Neutrophils # 9.5 H Lymphocytes # 0.6 L Monocytes # 1.0 H Eosinophils # 0.5 Basophils # 0.1 Nucleated Red Blood Cells # 0.0 Sodium Level 133 L Potassium Level 3.9 Chloride Level 92 L Carbon Dioxide Level 27 Anion Gap 14 H Blood Urea Nitrogen 49 #H Creatinine 5.34 H Est Glomerular Filtrat Rate mL/min Glucose Level 97 Calcium Level 8.2 L Total Bilirubin 0.2 Direct Bilirubin 0.00 Indirect Bilirubin 0.2 Aspartate Amino Transf (AST/SGOT) 35 Alanine Aminotransferase (ALT/SGPT) 24 Alkaline Phosphatase 223 H Total Protein 5.5 L Albumin 3.0 L Globulin 2.50 Albumin/Globulin Ratio 1.20 Consultation Date/Type/Reason Admit Date/Time Jun 24, 2018 at 21:30 Initial Consult Date 24 HR Interval Summary Free Text/Dictation better. more coherent. still very weak and unable to walk Exam/Review of Systems Vital Signs Vitals Vital Signs Date Temp Pulse Resp B/P (MAP) Pulse Ox O2 O2 Flow FiO2 Time Delivery Rate 07/01/18 97.7 90 20 113/53 92 Nasal 14:00 (73) Cannula 07/01/18 3.0 08:00 Intake and Output 06/30/18 06/30/18 07/01/18 1515:00 23:00 07:00 IntakeIntake Total 1200 ml 280 ml OutputOutput Total 200 ml BalanceBalance 1000 ml 280 ml Exam Constitutional: alert, oriented Psych: no complaints Head: normocephalic ENMT: nl external ears & nose Neck: supple Respiratory: diminished breath sounds Cardiovascular: regular rate and rhythm, edema Gastrointestinal: soft Medications Medications Current Medications Acetaminophen (Tylenol Tab) 500 mg Q4H PRN PO MILD PAIN(1-3)OR ELEVATED TEMP; Start 06/25/18 at 01:13 Allopurinol (Zyloprim) 300 mg DAILY PO Last administered on 07/01/18 10:51; Admin Dose 300 MG; Start 06/25/18 at 01:13 Aspirin (Aspirin) 81 mg DAILY PO Last administered on 07/01/18 10:52; Admin Dose 81 MG; Start 06/25/18 at 01:13 Atorvastatin Calcium (Lipitor) 20 mg QHS PO Last administered on 06/30/18at 20:11; Admin Dose 20 MG; Start 06/25/18 at 01:13 Clopidogrel Bisulfate (plaVIX) 75 mg DAILY PO Last administered on 07/01/18 10:52; Admin Dose 75 MG; Start 06/25/18 at 01:13 Isosorbide Mononitrate (Imdur) 120 mg DAILY PO Last administered on 07/01/18 10:52; Admin Dose 120 MG; Start 06/25/18 at 01:13 Metoprolol Tartrate (Lopressor) 25 mg BID PO Last administered on 06/30/18 20:12; Admin Dose 25 MG; Start 06/25/18 at 01:13 Tramadol HCl (Ultram) 50 mg Q6H PRN PO PAIN; Start 06/25/18 at 01:13 Lorazepam (Ativan) 0.5 mg Q8H PRN PO ANXIETY Last administered on 07/01/18at 1 0:50; Admin Dose 0.5 MG; Start 06/25/18 at 01:13 Acetaminophen/ Hydrocodone Bitart ([place] (5/325)) 1 tab Q6H PRN PO PAIN LEVEL 4-6 Last administered on 06/29/18 14:09; Admin Dose 1 TAB; Start 06/25/18 at 01:13 Digoxin (Digoxin) 0.0625 mg DAILY@1300 PO Last administered on 06/30/18 14:44; Admin Dose 0.0625 MG; Start 06/25/18 at 01:13 Furosemide (Lasix) 40 mg DAILY PO Last administered on 07/01/18 10:53; Admin Dose 40 MG; Start 06/25/18 at 01:13 Celecoxib (Celebrex) 100 mg BID PO Last administered on 07/01/18 10:51; Admin Dose 100 MG; Start 06/25/18 at 01:13 Epoetin Calos (Epogen (Esrd)) 10,000 units MoWeFr@17 SC Last administered on 06/28/18 20:34; Admin Dose 10,000 UNITS; Start 06/25/18 at 01:13 Multivit/Ca Carb/ B Cmplx/FA/Prenat (Fany-Jose Luis) 1 tab DAILY PO Last administered on 07/01/18 10:52; Admin Dose 1 TAB; Start 06/25/18 at 01:13 Lidocaine (Lidoderm) 1 patch DAILY TD Last administered on 07/01/18 10:54; Admin Dose 1 PATCH; Start 06/25/18 at 01:13 Metoclopramide HCl (Reglan) 5 mg AC MEALS PO Last administered on 07/01/18 07:14; Admin Dose 5 MG; Start 06/25/18 at 01:13 Lisinopril (Zestril) 2.5 mg QHS PO Last administered on 06/30/18 20:12; Admin Dose 2.5 MG; Start 06/25/18 at 01:13 Lactulose (Enulose) 20 gm DAILY PRN PO CONSTIPATION; Start 06/25/18 at 01:13 Tamsulosin HCl (Flomax) 0.4 mg HS PO Last administered on 06/30/18at 20:11; Admin Dose 0.4 MG; Start 06/25/18 at 01:13 Albumin Human 100 ml @ 100 mls/hr DURING DIALYSIS PRN IV BLOOD PRESSURE SUPPORT; Start 06/25/18 at 01:13 Docusate Sodium (Colace) 100 mg Q12H PO Last administered on 07/01/18at 10:52; Admin Dose 100 MG; Start 06/25/18 at 09:00 Famotidine (Pepcid) 20 mg Q24H PO Last administered on 06/30/18at 20:11; Admin Dose 20 MG; Start 06/25/18 at 21:00 Senna (Senokot) 1 tab HS PO Last administered on 06/27/18at 21:24; Admin Dose 1 TAB; Start 06/25/18 at 21:00 Lactulose (Enulose) 20 gm DAILY PRN PO CONSTIPATION; Start 06/25/18 at 06:00 Bisacodyl (Dulcolax Supp) 10 mg DAILY PRN [place] CONSTIPATION; Start 06/25/18 at 06:00 Acetaminophen (Tylenol Tab) 650 mg Q4H PRN PO PAIN Last administered on 06/30/18at 11:50; Admin Dose 650 MG; Start 06/25/18 at 06:00 Tobramycin Sulfate (Tobrex 0.3% Oph Drop) 1 drop QID BOTH EYES Last administered on 07/01/18at 10:50; Admin Dose 1 DROP; Start 06/25/18 at 21:00; Stop 07/02/18 at 20:59 Heparin Sodium (Porcine) (Heparin (1000 Units/ml)) 6,100 unit AFTER DIALYSIS CATHETER Last administered on 06/30/18at 00:18; Admin Dose 6,100 UNIT; Start 06/27/18 at 16:30 Docusate Sodium/ Ferrous Fumarate (Shaw-Sequels) 1 tab BID PO Last administered on 07/01/18at 10:51; Admin Dose 1 TAB; Start 06/30/18 at 21:00; Stop 07/30/18 at 20:59 BENITO PEREZ MD Jul 01, 2018 17:58
[2018-07-01] MEDS: EPOETIN 10000 UNITS/1 ML INJ (ESRD) SC SCH (18:20)
--- NOTE | 2018-07-01 19:00 | NUR ---
Nursing Notes: on conference patient was discussed for discharge tomorrow, RN to verify to DANIELA Okeefe about discharge plan and equipment. RN called DANIELA Okeefe to call the Unit for any information about patient discharge.
[2018-07-01 19:16] VITALS: BP 149/53; PULSE 91
--- NOTE | 2018-07-01 19:41 | NUR ---
Nursing Notes: patient for dialysis tomorrow in the morning, confirmed to [facility] with confirmation Number [id number] As per Therapy patient will not have any therapy tomorrow.
[2018-07-01] MEDS: ATORVASTATIN 20 MG TAB PO SCH (20:11)
[2018-07-01] MEDS: TAMSULOSIN (SR) 0.4 MG CAP PO SCH (20:11)
[2018-07-01] MEDS: FAMOTIDINE 20 MG TAB PO SCH (20:11)
[2018-07-01] MEDS: SENNA TAB PO SCH (20:12)
[2018-07-01] MEDS: LISINOPRIL 5 MG TAB PO SCH (20:13)
[2018-07-02] VITALS (20 sets, daily range): BP systolic 96–165; BP diastolic 51–68; PULSE 80–92; RESP 18–22
--- NOTE | 2018-07-02 07:24 | NUR ---
PT SLEPT ON OFF DURING THE NIGHT WITH PERIODS OF CONFUSION BUT CALM AND COOPERATIVE. ABLE TO MAKE NEEDS KNOWN AND USING CALL LIGHT FOR HELP. ALL DUE MEDS GIVEN. DENIES PAIN. NO ACUTE DISTRESS NOTED. PT HAD 1 BM AT [facility]. KEPT DRY AND CLEAN. FALL PRECAUTION. BED ALARM ON. HOURLY ROUNDING MADE. CALL LIGHT AND TABLE ARE WITHIN REACH.
[2018-07-02] MEDS: METOPROLOL 25 MG TAB PO SCH ×2 (09:00→21:13)
[2018-07-02] MEDS: ISOSORBIDE MONONITRATE(SR)60 MG TAB PO SCH (09:00)
[2018-07-02] MEDS: METOCLOPRAMIDE 5 MG TAB PO SCH ×4 (10:21→19:13)
[2018-07-02] MEDS: ASPIRIN 81 MG TAB PO SCH (10:21)
[2018-07-02] MEDS: FERROUS FUMARATE (SR) TAB PO SCH ×2 (10:21→21:11)
[2018-07-02] MEDS: DOCUSATE SODIUM 100 MG CAP PO SCH ×2 (10:21→21:11)
[2018-07-02] MEDS: CELECOXIB 100 MG CAP PO SCH ×2 (10:21→21:11)
[2018-07-02] MEDS: MULTIVIT/CA CARB/B CMPLX/FA TAB PO SCH (10:21)
[2018-07-02] MEDS: ALLOPURINOL 300 MG TAB PO SCH (10:21)
[2018-07-02] MEDS: ACETAMINOPHEN 325 MG TAB PO PRN ×2 (10:22→15:32)
[2018-07-02] MEDS: CLOPIDOGREL 75 MG TAB PO SCH (10:23)
[2018-07-02] MEDS: LIDOCAINE 5% PATCH TD SCH (10:23)
[2018-07-02] MEDS: TOBRAMYCIN 0.3% 5 ML OPH BOTH EYES SCH ×3 (10:23→19:13)
[2018-07-02] MEDS: FUROSEMIDE 40 MG TAB PO SCH (10:24)
--- NOTE | 2018-07-02 10:51 | NUR ---
SOCIAL WORK NOTE: This script writer discussed discharge option w/ pt and pt daughter Елена [phone] as well as pt . After discussion Елена and pt would like tyo maximize pt time in ARU. The patient family provided this script writer with 3 SNF options, [facility], [facility], [facility]. This script writer sent clinical to all 3, [facility] reports no beds available, [facility] accepted and [place] pending. Pt and pt family met w/ Andreas Joyner computer help desk representative and reports they will make a decision by for d/c on Wednesday 07/05 either to SNF or home.
--- NOTE | 2018-07-02 11:58 | PN ---
Date/Time of Note Date/Time of Note DATE: 07/02/18 TIME: 11:58 Subjective Comfortable Objective Vital Signs Date Temp Pulse Resp B/P (MAP) Pulse Ox O2 O2 Flow FiO2 Time Delivery Rate 07/02/18 88 11:54 07/02/18 121/60 91 Nasal 3.0 11:50 (80) Cannula 07/02/18 98.2 07:30 Intake and Output 07/01/18 07/01/18 07/02/18 1515:00 23:00 07:00 IntakeIntake Total 1060 ml OutputOutput Total 50 ml BalanceBalance -50 ml 1060 ml Exam pulm-cta abd-soft max transfer Results/Medications Result Diagram: 07/02/18 0840 07/02/18 0840 Results 24 hrs Laboratory Tests Test 07/02/18 08:40 White Blood Count 12.3 H Red Blood Count 3.23 L Hemoglobin 8.8 L Hematocrit 29.0 L Mean Corpuscular Volume 89.8 Mean Corpuscular Hemoglobin 27.2 L Mean Corpuscular Hemoglobin Concent 30.3 L Red Cell Distribution Width 15.6 H Platelet Count 352 Mean Platelet Volume 10.5 H Immature Granulocytes % 1.900 H Neutrophils % 81.1 H Lymphocytes % 4.9 L Monocytes % 7.2 Eosinophils % 4.2 Basophils % 0.7 Nucleated Red Blood Cells % 0.0 Immature Granulocytes # 0.230 H Neutrophils # 9.9 H Lymphocytes # 0.6 L Monocytes # 0.9 Eosinophils # 0.5 Basophils # 0.1 Nucleated Red Blood Cells # 0.0 Sodium Level 133 L Potassium Level 5.0 Chloride Level 91 L Carbon Dioxide Level 26 Anion Gap 16 H Blood Urea Nitrogen 67 H Creatinine 6.65 H Est Glomerular Filtrat Rate mL/min Glucose Level 103 Calcium Level 8.0 L Total Bilirubin 0.1 L Direct Bilirubin 0.00 Indirect Bilirubin 0.1 Aspartate Amino Transf (AST/SGOT) 35 Alanine Aminotransferase (ALT/SGPT) 28 Alkaline Phosphatase 216 H Total Protein 5.8 L Albumin 3.1 L Globulin 2.70 Albumin/Globulin Ratio 1.14 Medications Current Medications Acetaminophen (Tylenol Tab) 500 mg Q4H PRN PO MILD PAIN(1-3)OR ELEVATED TEMP; Start 06/25/18 at 01:13 Allopurinol (Zyloprim) 300 mg DAILY PO Last administered on 07/02/18 10:21; Admin Dose 300 MG; Start 06/25/18 at 01:13 Aspirin (Aspirin) 81 mg DAILY PO Last administered on 07/02/18 10:21; Admin Dose 81 MG; Start 06/25/18 at 01:13 Atorvastatin Calcium (Lipitor) 20 mg QHS PO Last administered on 07/01/18 20:11; Admin Dose 20 MG; Start 06/25/18 at 01:13 Clopidogrel Bisulfate (plaVIX) 75 mg DAILY PO Last administered on 07/02/18 10:23; Admin Dose 75 MG; Start 06/25/18 at 01:13 Isosorbide Mononitrate (Imdur) 120 mg DAILY PO Last administered on 07/01/18 10:52; Admin Dose 120 MG; Start 06/25/18 at 01:13 Metoprolol Tartrate (Lopressor) 25 mg BID PO Last administered on 07/01/18 20:12; Admin Dose 25 MG; Start 06/25/18 at 01:13 Tramadol HCl (Ultram) 50 mg Q6H PRN PO PAIN; Start 06/25/18 at 01:13 Lorazepam (Ativan) 0.5 mg Q8H PRN PO ANXIETY Last administered on 07/01/18 10:50; Admin Dose 0.5 MG; Start 06/25/18 at 01:13 Acetaminophen/ Hydrocodone Bitart ([place] (5/325)) 1 tab Q6H PRN PO PAIN LEVEL 4-6 Last administered on 06/29/18 14:09; Admin Dose 1 TAB; Start 06/25/18 at 01:13 Digoxin (Digoxin) 0.0625 mg DAILY@1300 PO Last administered on 07/01/18 18:08; Admin Dose 0.0625 MG; Start 06/25/18 at 01:13 Furosemide (Lasix) 40 mg DAILY PO Last administered on 07/02/18 10:24; Admin Dose 40 MG; Start 06/25/18 at 01:13 Celecoxib (Celebrex) 100 mg BID PO Last administered on 07/02/18 10:21; Admin Dose 100 MG; Start 06/25/18 at 01:13 Epoetin Calos (Epogen (Esrd)) 10,000 units MoWeFr@17 SC Last administered on 07/01/18 18:20; Admin Dose 10,000 UNITS; Start 06/25/18 at 01:13 Multivit/Ca Carb/ B Cmplx/FA/Prenat (Fany-Jose Luis) 1 tab DAILY PO Last administered on 07/02/18 10:21; Admin Dose 1 TAB; Start 06/25/18 at 01:13 Lidocaine (Lidoderm) 1 patch DAILY TD Last administered on 07/02/18 10:23; Admin Dose 1 PATCH; Start 06/25/18 at 01:13 Metoclopramide HCl (Reglan) 5 mg AC MEALS PO Last administered on 07/02/18 10:21; Admin Dose 5 MG; Start 06/25/18 at 01:13 Lisinopril (Zestril) 2.5 mg QHS PO Last administered on 07/01/18 20:13; Admin Dose 2.5 MG; Start 06/25/18 at 01:13 Lactulose (Enulose) 20 gm DAILY PRN PO CONSTIPATION; Start 06/25/18 at 01:13 Tamsulosin HCl (Flomax) 0.4 mg HS PO Last administered on 07/01/18 20:11; Admin Dose 0.4 MG; Start 06/25/18 at 01:13 Albumin Human 100 ml @ 100 mls/hr DURING DIALYSIS PRN IV BLOOD PRESSURE SUPPORT; Start 06/25/18 at 01:13 Docusate Sodium (Colace) 100 mg Q12H PO Last administered on 07/02/18 10:21; Admin Dose 100 MG; Start 06/25/18 at 09:00 Famotidine (Pepcid) 20 mg Q24H PO Last administered on 07/01/18 20:11; Admin Dose 20 MG; Start 06/25/18 at 21:00 Senna (Senokot) 1 tab HS PO Last administered on 07/01/18 20:12; Admin Dose 1 TAB; Start 06/25/18 at 21:00 Lactulose (Enulose) 20 gm DAILY PRN PO CONSTIPATION; Start 06/25/18 at 06:00 Bisacodyl (Dulcolax Supp) [address] CONSTIPATION; Start 06/25/18 at 06:00 Acetaminophen (Tylenol Tab) 650 mg Q4H PRN PO PAIN Last administered on 07/02/18 10:22; Admin Dose 650 MG; Start 06/25/18 at 06:00 Tobramycin Sulfate (Tobrex 0.3% Oph Drop) 1 drop QID BOTH EYES Last administered on 07/02/18 10:23; Admin Dose 1 DROP; Start 06/25/18 at 21:00; Stop 07/02/18 at 20:59 Heparin Sodium (Porcine) (Heparin (1000 Units/ml)) 6,100 unit AFTER DIALYSIS CATHETER Last administered on 06/30/18at 00:18; Admin Dose 6,100 UNIT; Start 06/27/18 at 16:30 Docusate Sodium/ Ferrous Fumarate (Shaw-Sequels) 1 tab BID PO Last administered on 07/02/18 10:21; Admin Dose 1 TAB; Start 06/30/18 at 21:00; Stop 07/30/18 at 20:59 Assessment/Plan Additional Assessment/Plan rehab- Toxic metabolic encephalopathy;Critical illness myopathy. Continue rehab activities, and increase as tolerated End-stage renal disease on hemodialysis- per renal Coronary artery disease, status post non-ST elevation myocardial infarction. Pneumonia. Dysphagia, on dysphagia soft diet. 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 Hypertension. Chronic heart failure. Atrial fibrillation. CARO RENEE MD Jul 02, 2018 11:58
[2018-07-02] MEDS: HEPARIN 1000 UNITS/ML 10 ML INJ CATHETER SCH (12:01)
[2018-07-02] MEDS: DIGOXIN 0.125 MG TAB PO SCH (14:07)
--- NOTE | 2018-07-02 15:42 | NUR ---
Bed alarm went off. Clem and Theresa went to the room. Pt found sitting on the floor with his body leaning on the side of the bed. Pt alert, oriented complained of back pain. 4 persons assisted pt back to bed. On assessment, vitals 141/63, HR 92/min, RR 18/min. O2 sat 95%. No bruise noted, no open wound. Charge nurse Clem called the daughter to report about the fall. RN called Dr. Nunes at 1540 and got order to do Lumbo-sacral X-ray stat. RN Called Dr. Panda to report about the fall. Alarm on at all times. Bed at the lowest positions.
--- NOTE | 2018-07-02 16:01 | NUR ---
Patient Daughter (Елена) notified regarding the patient found on the floor in sitting position next to his bed. assessed patient with no injury. no bruise. no redness.
--- NOTE | 2018-07-02 16:13 | NUR ---
Nursing Supervisor [employer] Diana David notified regarding the patient fall. Frankie came to the unit to huddle nurses.
--- NOTE | 2018-07-02 17:11 | NUR ---
Pt refused to go to Radiology for X-ray of Lumbar spine. Charge nurse Clem called Елена to talk to pt. Pt still not agreeing to do X-ray. Sary will come in the next hour to talk to pt again. Radiology made aware family is coming to persuade the pt for the x-ray. Pt stays in the wheelchair, refuses to get back to bed.
--- NOTE | 2018-07-02 21:00 | CONS ---
Assessment/Plan Assessment/Plan Hospital Course 1. End-stage renal disease on maintenance hemodialysis Sunday. He has hemodialysis being done now . 2. Metabolic encephalopathy , his level of consciousness is alternating between being wide awake and then being quite lethargic. He seems more awake today . 3. leukocytosis. His white blood count is decreasing. He has been afebrile. 4. Coronary artery disease, recent NSTEMI 5. Critical illness myopathy . He is still quite weak. Physical therapy is doing their best to work with him. 6. Paroxysmal atrial fibrillation 7. Anemia of chronic kidney disease 8. He has had a small amount of bright red rectal bleeding. Could be hemorrhoidal , not currently active . Result Diagram: 07/02/18 0840 07/02/18 0840 Results 24hrs Laboratory Tests Test 07/02/18 08:40 White Blood Count 12.3 H Red Blood Count 3.23 L Hemoglobin 8.8 L Hematocrit 29.0 L Mean Corpuscular Volume 89.8 Mean Corpuscular Hemoglobin 27.2 L Mean Corpuscular Hemoglobin Concent 30.3 L Red Cell Distribution Width 15.6 H Platelet Count 352 Mean Platelet Volume 10.5 H Immature Granulocytes % 1.900 H Neutrophils % 81.1 H Lymphocytes % 4.9 L Monocytes % 7.2 Eosinophils % 4.2 Basophils % 0.7 Nucleated Red Blood Cells % 0.0 Immature Granulocytes # 0.230 H Neutrophils # 9.9 H Lymphocytes # 0.6 L Monocytes # 0.9 Eosinophils # 0.5 Basophils # 0.1 Nucleated Red Blood Cells # 0.0 Sodium Level 133 L Potassium Level 5.0 Chloride Level 91 L Carbon Dioxide Level 26 Anion Gap 16 H Blood Urea Nitrogen 67 H Creatinine 6.65 H Est Glomerular Filtrat Rate mL/min Glucose Level 103 Calcium Level 8.0 L Total Bilirubin 0.1 L Direct Bilirubin 0.00 Indirect Bilirubin 0.1 Aspartate Amino Transf (AST/SGOT) 35 Alanine Aminotransferase (ALT/SGPT) 28 Alkaline Phosphatase 216 H Total Protein 5.8 L Albumin 3.1 L Globulin 2.70 Albumin/Globulin Ratio 1.14 Consultation Date/Type/Reason Admit Date/Time Jun 24, 2018 at 21:30 Initial Consult Date Type of Consult Nephrology 24 HR Interval Summary Free Text/Dictation He is being seen in nephrologic evaluation . He is currently having a hemodialysis treatment now . He is awake and conversant but slightly confused . Constitutional: no complaints, improved Exam/Review of Systems Vital Signs Vitals Vital Signs Date Temp Pulse Resp B/P (MAP) Pulse Ox O2 O2 Flow FiO2 Time Delivery Rate 07/02/18 2.0 20:39 07/02/18 98.7 90 18 165/68 95 Nasal 19:12 (100) Cannula Intake and Output 07/01/18 07/01/18 07/02/18 1515:00 23:00 07:00 IntakeIntake Total 1060 ml OutputOutput Total 50 ml BalanceBalance -50 ml 1060 ml Exam Constitutional: alert, frail Psych: confusion Respiratory: clear to auscultation, normal air movement Cardiovascular: regular rate and rhythm Gastrointestinal: soft, non-tender Musculoskeletal: nl extremities to inspection Medications Medications Current Medications Acetaminophen (Tylenol Tab) 500 mg Q4H PRN PO MILD PAIN(1-3)OR ELEVATED TEMP; Start 06/25/18 at 01:13 Allopurinol (Zyloprim) 300 mg DAILY PO Last administered on 07/02/18 10:21; Admin Dose 300 MG; Start 06/25/18 at 01:13 Aspirin (Aspirin) 81 mg DAILY PO Last administered on 07/02/18 10:21; Admin Dose 81 MG; Start 06/25/18 at 01:13 Atorvastatin Calcium (Lipitor) 20 mg QHS PO Last administered on 07/01/18 20:11; Admin Dose 20 MG; Start 06/25/18 at 01:13 Clopidogrel Bisulfate (plaVIX) 75 mg DAILY PO Last administered on 07/02/18 10:23; Admin Dose 75 MG; Start 06/25/18 at 01:13 Isosorbide Mononitrate (Imdur) 120 mg DAILY PO Last administered on 07/01/18 10:52; Admin Dose 120 MG; Start 06/25/18 at 01:13 Metoprolol Tartrate (Lopressor) 25 mg BID PO Last administered on 07/01/18 20:12; Admin Dose 25 MG; Start 06/25/18 at 01:13 Tramadol HCl (Ultram) 50 mg Q6H PRN PO PAIN; Start 06/25/18 at 01:13 Lorazepam (Ativan) 0.5 mg Q8H PRN PO ANXIETY Last administered on 07/01/18 10:50; Admin Dose 0.5 MG; Start 06/25/18 at 01:13 Acetaminophen/ Hydrocodone Bitart ([place] (5/325)) 1 tab Q6H PRN PO PAIN LEVEL 4-6 Last administered on 06/29/18 14:09; Admin Dose 1 TAB; Start 06/25/18 at 01:13 Digoxin (Digoxin) 0.0625 mg DAILY@1300 PO Last administered on 07/02/18 14:07; Admin Dose 0.0625 MG; Start 06/25/18 at 01:13 Furosemide (Lasix) 40 mg DAILY PO Last administered on 07/02/18 10:24; Admin Dose 40 MG; Start 06/25/18 at 01:13 Celecoxib (Celebrex) 100 mg BID PO Last administered on 07/02/18 10:21; Admin Dose 100 MG; Start 06/25/18 at 01:13 Epoetin Calos (Epogen (Esrd)) 10,000 units MoWeFr@17 SC Last administered on 07/01/18 18:20; Admin Dose 10,000 UNITS; Start 06/25/18 at 01:13 Multivit/Ca Carb/ B Cmplx/FA/Prenat (Fany-Jose Luis) 1 tab DAILY PO Last administered on 07/02/18 10:21; Admin Dose 1 TAB; Start 06/25/18 at 01:13 Lidocaine (Lidoderm) 1 patch DAILY TD Last administered on 07/02/18 10:23; Admin Dose 1 PATCH; Start 06/25/18 at 01:13 Metoclopramide HCl (Reglan) 5 mg AC MEALS PO Last administered on 07/02/18 14:05; Admin Dose 5 MG; Start 06/25/18 at 01:13 Lisinopril (Zestril) 2.5 mg QHS PO Last administered on 07/01/18 20:13; Admin Dose 2.5 MG; Start 06/25/18 at 01:13 Lactulose (Enulose) 20 gm DAILY PRN PO CONSTIPATION; Start 06/25/18 at 01:13 Tamsulosin HCl (Flomax) 0.4 mg HS PO Last administered on 07/01/18 20:11; Admin Dose 0.4 MG; Start 06/25/18 at 01:13 Albumin Human 100 ml @ 100 mls/hr DURING DIALYSIS PRN IV BLOOD PRESSURE SUPPORT; Start 06/25/18 at 01:13 Docusate Sodium (Colace) 100 mg Q12H PO Last administered on 07/02/18 10:21; Admin Dose 100 MG; Start 06/25/18 at 09:00 Famotidine (Pepcid) 20 mg Q24H PO Last administered on 07/01/18at 20:11; Admin Dose 20 MG; Start 06/25/18 at 21:00 Senna (Senokot) 1 tab HS PO Last administered on 07/01/18at 20:12; Admin Dose 1 TAB; Start 06/25/18 at 21:00 Lactulose (Enulose) 20 gm DAILY PRN PO CONSTIPATION; Start 06/25/18 at 06:00 Bisacodyl (Dulcolax Supp) 10 mg DAILY PRN [place] CONSTIPATION; Start 06/25/18 at 06:00 Acetaminophen (Tylenol Tab) 650 mg Q4H PRN PO PAIN Last administered on 07/02/18at 15:32; Admin Dose 650 MG; Start 06/25/18 at 06:00 Tobramycin Sulfate (Tobrex 0.3% Oph Drop) 1 drop QID BOTH EYES Last administered on 07/02/18at 19:13; Admin Dose 1 DROP; Start 06/25/18 at 21:00; Stop 07/02/18 at 20:59 Heparin Sodium (Porcine) (Heparin (1000 Units/ml)) 6,100 unit AFTER DIALYSIS CATHETER Last administered on 07/02/18at 12:01; Admin Dose 6,100 UNIT; Start 06/27/18 at 16:30 Docusate Sodium/ Ferrous Fumarate (Shaw-Sequels) 1 tab BID PO Last administered on 07/02/18at 10:21; Admin Dose 1 TAB; Start 06/30/18 at 21:00; Stop 07/30/18 at 20:59 Date/Time of Note Date/Time of Note DATE: 07/02/18 TIME: 20:56 DEMARCUS CHING MD Jul 02, 2018 21:00
[2018-07-02] MEDS: TAMSULOSIN (SR) 0.4 MG CAP PO SCH (21:11)
[2018-07-02] MEDS: SENNA TAB PO SCH (21:11)
[2018-07-02] MEDS: ATORVASTATIN 20 MG TAB PO SCH (21:12)
[2018-07-02] MEDS: FAMOTIDINE 20 MG TAB PO SCH (21:12)
[2018-07-02] MEDS: LISINOPRIL 5 MG TAB PO SCH (21:12)
[2018-07-03 01:48] VITALS: BP 157/71; PULSE 83; RESP 20
--- NOTE | 2018-07-03 06:11 | NUR ---
Slept well. on O2 at 3l/min per NC, no resp distress noted. Still with occ SOB on exertion. Denies pain. Needs attended. Call light within reached, bed alarm is activated. No acute distress noted.
[2018-07-03 07:00] VITALS: BP 156/72; PULSE 96; RESP 18
[2018-07-03] MEDS: MULTIVIT/CA CARB/B CMPLX/FA TAB PO SCH (08:09)
[2018-07-03] MEDS: CLOPIDOGREL 75 MG TAB PO SCH (08:09)
[2018-07-03] MEDS: ASPIRIN 81 MG TAB PO SCH (08:09)
[2018-07-03] MEDS: FERROUS FUMARATE (SR) TAB PO SCH ×2 (08:09→21:11)
[2018-07-03] MEDS: CELECOXIB 100 MG CAP PO SCH ×2 (08:09→21:13)
[2018-07-03] MEDS: DOCUSATE SODIUM 100 MG CAP PO SCH ×2 (08:09→21:11)
[2018-07-03] MEDS: METOCLOPRAMIDE 5 MG TAB PO SCH ×3 (08:09→17:04)
[2018-07-03] MEDS: ALLOPURINOL 300 MG TAB PO SCH (08:10)
[2018-07-03] MEDS: METOPROLOL 25 MG TAB PO SCH ×2 (08:10→21:12)
[2018-07-03] MEDS: ISOSORBIDE MONONITRATE(SR)60 MG TAB PO SCH (08:11)
[2018-07-03] MEDS: FUROSEMIDE 40 MG TAB PO SCH (08:11)
[2018-07-03] MEDS: LIDOCAINE 5% PATCH TD SCH (08:12)
--- NOTE | 2018-07-03 09:16 | NUR ---
PT NOTE [id number] Made 2 attempts to see pt for PT. First attempt, pt reported he's not ready for PT. Encouraged still refuse. Asked how long he'll need to be ready. Pt stated 10mins. Made 2nd attempt 10mins after first attempt, pt continued to refused. He stated he's still not ready and wants to eat.
--- NOTE | 2018-07-03 09:51 | NUR ---
Attempted ST. Unable to arouse for session despite max verbal prompting, sternal rub and repositioning.
--- NOTE | 2018-07-03 11:55 | NUR ---
SOCIAL WORK NOTE: This copy writer spoke w/ pt daughter Елена [phone] to discuss discharge plans, Елена is still deciding [phone]. Елена reports that she will call this social studies teacher back tomorrow with a decision; however she is leaning toward SNF. This social studies teacher spoke w/ Erika heredia at [facility] reports a bed should be available tomorrow.
--- NOTE | 2018-07-03 12:53 | PN ---
Date/Time of Note Date/Time of Note DATE: 07/03/18 TIME: 12:50 Subjective Currently awake, denies pain Called by RN yesterday regarding patient being found on floor. Apparently fire alarm noted, and also bed alarm. RN reportedly responded and patient noted to be on floor. Denied pain. Objective Vital Signs Date Temp Pulse Resp B/P (MAP) Pulse Ox O2 O2 Flow FiO2 Time Delivery Rate 07/03/18 98.6 96 18 156/72 96 Nasal 3.0 07:00 (100) Cannula Intake and Output 07/02/18 07/02/18 07/03/18 1414:59 22:59 06:59 IntakeIntake Total 640 ml 240 ml OutputOutput Total 2000 ml BalanceBalance -2000 ml 640 ml 240 ml Exam pulm-cta abd-soft no pain with ROM to UE or LE max assist transfer Results/Medications Result Diagram: 07/02/1840 07/02/1840 Medications Current Medications Acetaminophen (Tylenol Tab) 500 mg Q4H PRN PO MILD PAIN(1-3)OR ELEVATED TEMP; Start 06/25/18 at 01:13 Allopurinol (Zyloprim) 300 mg DAILY PO Last administered on 07/03/18at 08:10; Admin Dose 300 MG; Start 06/25/18 at 01:13 Aspirin (Aspirin) 81 mg DAILY PO Last administered on 07/03/18at 08:09; Admin Dose 81 MG; Start 06/25/18 at 01:13 Atorvastatin Calcium (Lipitor) 20 mg QHS PO Last administered on 07/02/18at 21:12; Admin Dose 20 MG; Start 06/25/18 at 01:13 Clopidogrel Bisulfate (plaVIX) 75 mg DAILY PO Last administered on 07/03/18at 08:09; Admin Dose 75 MG; Start 06/25/18 at 01:13 Isosorbide Mononitrate (Imdur) 120 mg DAILY PO Last administered on 07/03/18at 08:11; Admin Dose 120 MG; Start 06/25/18 at 01:13 Metoprolol Tartrate (Lopressor) 25 mg BID PO Last administered on 07/03/18at 08:10; Admin Dose 25 MG; Start 06/25/18 at 01:13 Tramadol HCl (Ultram) 50 mg Q6H PRN PO PAIN; Start 06/25/18 at 01:13 Lorazepam (Ativan) 0.5 mg Q8H PRN PO ANXIETY Last administered on 07/01/18 10:50; Admin Dose 0.5 MG; Start 06/25/18 at 01:13 Acetaminophen/ Hydrocodone Bitart ([place] (5/325)) 1 tab Q6H PRN PO PAIN LEVEL 4-6 Last administered on 06/29/18 14:09; Admin Dose 1 TAB; Start 06/25/18 at 01:13 Digoxin (Digoxin) 0.0625 mg DAILY@1300 PO Last administered on 07/02/18 14:07; Admin Dose 0.0625 MG; Start 06/25/18 at 01:13 Furosemide (Lasix) 40 mg DAILY PO Last administered on 07/03/18 08:11; Admin Dose 40 MG; Start 06/25/18 at 01:13 Celecoxib (Celebrex) 100 mg BID PO Last administered on 07/03/18 08:09; Admin Dose 100 MG; Start 06/25/18 at 01:13 Epoetin Calos (Epogen (Esrd)) 10,000 units MoWeFr@17 SC Last administered on 07/01/18 18:20; Admin Dose 10,000 UNITS; Start 06/25/18 at 01:13 Multivit/Ca Carb/ B Cmplx/FA/Prenat (Fany-Jose Luis) 1 tab DAILY PO Last administered on 07/03/18 08:09; Admin Dose 1 TAB; Start 06/25/18 at 01:13 Lidocaine (Lidoderm) 1 patch DAILY TD Last administered on 07/03/18 08:12; Admin Dose 1 PATCH; Start 06/25/18 at 01:13 Metoclopramide HCl (Reglan) 5 mg AC MEALS PO Last administered on 07/03/18 12:06; Admin Dose 5 MG; Start 06/25/18 at 01:13 Lisinopril (Zestril) 2.5 mg QHS PO Last administered on 07/02/18at 21:12; Admin Dose 2.5 MG; Start 06/25/18 at 01:13 Lactulose (Enulose) 20 gm DAILY PRN PO CONSTIPATION; Start 06/25/18 at 01:13 Tamsulosin HCl (Flomax) 0.4 mg HS PO Last administered on 07/02/18 21:11; Admin Dose 0.4 MG; Start 06/25/18 at 01:13 Albumin Human 100 ml @ 100 mls/hr DURING DIALYSIS PRN IV BLOOD PRESSURE SUPPORT; Start 06/25/18 at 01:13 Docusate Sodium (Colace) 100 mg Q12H PO Last administered on 07/03/18 08:09; Admin Dose 100 MG; Start 06/25/18 at 09:00 Famotidine (Pepcid) 20 mg Q24H PO Last administered on 07/02/18 21:12; Admin Dose 20 MG; Start 06/25/18 at 21:00 Senna (Senokot) 1 tab HS PO Last administered on 07/02/18 21:11; Admin Dose 1 TAB; Start 06/25/18 at 21:00 Lactulose (Enulose) 20 gm DAILY PRN PO CONSTIPATION; Start 06/25/18 at 06:00 Bisacodyl (Dulcolax Supp) 10 mg DAILY PRN [place] CONSTIPATION; Start 06/25/18 at 06:00 Acetaminophen (Tylenol Tab) 650 mg Q4H PRN PO PAIN Last administered on 07/02/18 15:32; Admin Dose 650 MG; Start 06/25/18 at 06:00 Heparin Sodium (Porcine) (Heparin (1000 Units/ml)) 6,100 unit AFTER DIALYSIS CATHETER Last administered on 07/02/18 12:01; Admin Dose 6,100 UNIT; Start 06/27/18 at 16:30 Docusate Sodium/ Ferrous Fumarate (Shaw-Sequels) 1 tab BID PO Last administered on 07/03/18 08:09; Admin Dose 1 TAB; Start 06/30/18 at 21:00; Stop 07/30/18 at 20:59 Assessment/Plan Additional Assessment/Plan rehab- Toxic metabolic encephalopathy;Critical illness myopathy. Patietn with gradual gains with current rehabilitation program. Anticipate to SNF when bed avialable s/p fall- lumbar xray (-) for acute changes End-stage renal disease on hemodialysis- per renal Coronary artery disease, status post non-ST elevation myocardial infarction. Pneumonia. Dysphagia, on dysphagia soft diet. 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 Hypertension. Chronic heart failure. Atrial fibrillation. CARO RENEE MD Jul 03, 2018 12:53
--- NOTE | 2018-07-03 13:22 | CONS ---
Assessment/Plan Assessment/Plan Hospital Course 1. End-stage renal disease on maintenance hemodialysis Sunday. He is due for a dialysis treatment tomorrow which I will order. 2. Metabolic encephalopathy , his level of consciousness is alternating between being wide awake and then being quite lethargic. He seems more awake today . 3. leukocytosis. His white blood count is decreasing. He has been afebrile. 4. Coronary artery disease, recent NSTEMI 5. Critical illness myopathy . He is still quite weak. Physical therapy is doing their best to work with him. 6. Paroxysmal atrial fibrillation 7. Anemia of chronic kidney disease 8. He has had a small amount of bright red rectal bleeding. Could be hemorrhoidal , not currently active . 9. I have asked Dr. Slater to see the patient and review his vascular access for hemodialysis. Result Diagram: 07/02/1840 07/02/18839 Consultation Date/Type/Reason Admit Date/Time Jun 24, 2018 at 21:30 Initial Consult Date Type of Consult Nephrology 24 HR Interval Summary Free Text/Dictation Mr. ware is being seen in nephrologic consultation. He is awake and alert and conversant today. He seems much better mentally. Constitutional: no complaints, improved Exam/Review of Systems Vital Signs Vitals Vital Signs Date Temp Pulse Resp B/P (MAP) Pulse Ox O2 O2 Flow FiO2 Time Delivery Rate 07/03/18 98.6 96 18 156/72 96 Nasal 3.0 07:00 (100) Cannula Intake and Output 07/02/18 07/02/18 07/03/18 1515:00 23:00 07:00 IntakeIntake Total 640 ml 240 ml OutputOutput Total 2000 ml BalanceBalance -2000 ml 640 ml 240 ml Exam Constitutional: alert, oriented, frail Respiratory: clear to auscultation, normal air movement Cardiovascular: regular rate and rhythm Gastrointestinal: soft, non-tender Musculoskeletal: nl extremities to inspection Medications Medications Current Medications Acetaminophen (Tylenol Tab) 500 mg Q4H PRN PO MILD PAIN(1-3)OR ELEVATED TEMP; Start 06/25/18 at 01:13 Allopurinol (Zyloprim) 300 mg DAILY PO Last administered on 07/03/18at 08:10; Admin Dose 300 MG; Start 06/25/18 at 01:13 Aspirin (Aspirin) 81 mg DAILY PO Last administered on 07/03/18 08:09; Admin Dose 81 MG; Start 06/25/18 at 01:13 Atorvastatin Calcium (Lipitor) 20 mg QHS PO Last administered on 07/02/18 21:12; Admin Dose 20 MG; Start 06/25/18 at 01:13 Clopidogrel Bisulfate (plaVIX) 75 mg DAILY PO Last administered on 07/03/18 08:09; Admin Dose 75 MG; Start 06/25/18 at 01:13 Isosorbide Mononitrate (Imdur) 120 mg DAILY PO Last administered on 07/03/18 08:11; Admin Dose 120 MG; Start 06/25/18 at 01:13 Metoprolol Tartrate (Lopressor) 25 mg BID PO Last administered on 07/03/18 08:10; Admin Dose 25 MG; Start 06/25/18 at 01:13 Tramadol HCl (Ultram) 50 mg Q6H PRN PO PAIN; Start 06/25/18 at 01:13 Lorazepam (Ativan) 0.5 mg Q8H PRN PO ANXIETY Last administered on 07/01/18 10:50; Admin Dose 0.5 MG; Start 06/25/18 at 01:13 Acetaminophen/ Hydrocodone Bitart ([place] (5/325)) 1 tab Q6H PRN PO PAIN LEVEL 4-6 Last administered on 06/29/18 14:09; Admin Dose 1 TAB; Start 06/25/18 at 01:13 Digoxin (Digoxin) 0.0625 mg DAILY@1300 PO Last administered on 07/02/18 14:07; Admin Dose 0.0625 MG; Start 06/25/18 at 01:13 Furosemide (Lasix) 40 mg DAILY PO Last administered on 07/03/18 08:11; Admin Dose 40 MG; Start 06/25/18 at 01:13 Celecoxib (Celebrex) 100 mg BID PO Last administered on 07/03/18 08:09; Admin Dose 100 MG; Start 06/25/18 at 01:13 Epoetin Calos (Epogen (Esrd)) 10,000 units MoWeFr@17 SC Last administered on 07/01/18 18:20; Admin Dose 10,000 UNITS; Start 06/25/18 at 01:13 Multivit/Ca Carb/ B Cmplx/FA/Prenat (Fany-Jose Luis) 1 tab DAILY PO Last administered on 07/03/18 08:09; Admin Dose 1 TAB; Start 06/25/18 at 01:13 Lidocaine (Lidoderm) 1 patch DAILY TD Last administered on 07/03/18 08:12; Admin Dose 1 PATCH; Start 06/25/18 at 01:13 Metoclopramide HCl (Reglan) 5 mg AC MEALS PO Last administered on 07/03/18 12:06; Admin Dose 5 MG; Start 06/25/18 at 01:13 Lisinopril (Zestril) 2.5 mg QHS PO Last administered on 07/02/18 21:12; Admin Dose 2.5 MG; Start 06/25/18 at 01:13 Lactulose (Enulose) 20 gm DAILY PRN PO CONSTIPATION; Start 06/25/18 at 01:13 Tamsulosin HCl (Flomax) 0.4 mg HS PO Last administered on 07/02/18 21:11; Admin Dose 0.4 MG; Start 06/25/18 at 01:13 Albumin Human 100 ml @ 100 mls/hr DURING DIALYSIS PRN IV BLOOD PRESSURE SUPP ORT; Start 06/25/18 at 01:13 Docusate Sodium (Colace) 100 mg Q12H PO Last administered on 07/03/18 08:09; Admin Dose 100 MG; Start 06/25/18 at 09:00 Famotidine (Pepcid) 20 mg Q24H PO Last administered on 07/02/18 21:12; Admin Dose 20 MG; Start 06/25/18 at 21:00 Senna (Senokot) 1 tab HS PO Last administered on 07/02/18 21:11; Admin Dose 1 TAB; Start 06/25/18 at 21:00 Lactulose (Enulose) 20 gm DAILY PRN PO CONSTIPATION; Start 06/25/18 at 06:00 Bisacodyl (Dulcolax Supp) 10 mg DAILY PRN [place] CONSTIPATION; Start 06/25/18 at 06:00 Acetaminophen (Tylenol Tab) 650 mg Q4H PRN PO PAIN Last administered on 07/02/18at 15:32; Admin Dose 650 MG; Start 06/25/18 at 06:00 Heparin Sodium (Porcine) (Heparin (1000 Units/ml)) 6,100 unit AFTER DIALYSIS CATHETER Last administered on 07/02/18at 12:01; Admin Dose 6,100 UNIT; Start 06/27/18 at 16:30 Docusate Sodium/ Ferrous Fumarate (Shaw-Sequels) 1 tab BID PO Last administered on 07/03/18at 08:09; Admin Dose 1 TAB; Start 06/30/18 at 21:00; Stop 07/30/18 at 20:59 Date/Time of Note Date/Time of Note DATE: 07/03/18 TIME: 13:18 DEMARCUS CHING MD Jul 03, 2018 13:22
[2018-07-03 14:00] VITALS: BP 120/59; PULSE 78; RESP 18
[2018-07-03] MEDS: DIGOXIN 0.125 MG TAB PO SCH (14:00)
[2018-07-03] MEDS: ACETAMINOPHEN 325 MG TAB PO PRN (14:54)
--- NOTE | 2018-07-03 16:12 | PN ---
Date/Time of Note Date/Time of Note DATE: 07/03/18 TIME: 16:08 Assessment/Plan VTE Prophylaxis Risk score (from Nsg)>0 risk: 4 SCD applied (from Nsg): Yes Pharmacological prophylaxis: NA/contraindicated Pharm contraindication: bleeding Lines/Catheters IV Catheter Type (from Nrsg): Central Line Central line still needed: Yes (for h.d. access) Urinary Cath still in place: No Assessment/Plan Result Diagram: 07/02/18 0840 07/02/18 0840 Subjective 24 Hr Interval Summary Free Text/Dictation awake tis afternoon. up to chair, some brief weight bearing. issue of hd access to be addressed/ lungs clear, abd soft, ext no wasting or edema no more bleeding reported imp general deconditioning hematuria, poss bladder mass, cysto on hold ckd with femoral catheter for access with fistula clot, to be addressed plan to cont with rehab protocol Exam/Review of Systems Vital Signs Vitals Vital Signs Date Temp Pulse Resp B/P (MAP) Pulse Ox O2 O2 Flow FiO2 Time Delivery Rate 07/03/18 97.9 78 18 120/59 90 Nasal 3.0 14:00 (79) Cannula Intake and Output 07/02/18 07/02/18 07/03/18 1515:00 23:00 07:00 IntakeIntake Total 640 ml 240 ml OutputOutput Total 2000 ml BalanceBalance -2000 ml 640 ml 240 ml Medications Medications Current Medications Acetaminophen (Tylenol Tab) 500 mg Q4H PRN PO MILD PAIN(1-3)OR ELEVATED TEMP; Start 06/25/18 at 01:13 Allopurinol (Zyloprim) 300 mg DAILY PO Last administered on 07/03/18at 08:10; Admin Dose 300 MG; Start 06/25/18 at 01:13 Aspirin (Aspirin) 81 mg DAILY PO Last administered on 07/03/18at 08:09; Admin Dose 81 MG; Start 06/25/18 at 01:13 Atorvastatin Calcium (Lipitor) 20 mg QHS PO Last administered on 07/02/18at 21:12; Admin Dose 20 MG; Start 06/25/18 at 01:13 Clopidogrel Bisulfate (plaVIX) 75 mg DAILY PO Last administered on 07/03/18at 08:09; Admin Dose 75 MG; Start 06/25/18 at 01:13 Isosorbide Mononitrate (Imdur) 120 mg DAILY PO Last administered on 07/03/18 08:11; Admin Dose 120 MG; Start 06/25/18 at 01:13 Metoprolol Tartrate (Lopressor) 25 mg BID PO Last administered on 07/03/18 08:10; Admin Dose 25 MG; Start 06/25/18 at 01:13 Tramadol HCl (Ultram) 50 mg Q6H PRN PO PAIN; Start 06/25/18 at 01:13 Lorazepam (Ativan) 0.5 mg Q8H PRN PO ANXIETY Last administered on 07/01/18 10:50; Admin Dose 0.5 MG; Start 06/25/18 at 01:13 Acetaminophen/ Hydrocodone Bitart ([place] (5/325)) 1 tab Q6H PRN PO PAIN LEVEL 4-6 Last administered on 06/29/18 14:09; Admin Dose 1 TAB; Start 06/25/18 at 01:13 Digoxin (Digoxin) 0.0625 mg DAILY@1300 PO Last administered on 07/03/18 14:00; Admin Dose 0.0625 MG; Start 06/25/18 at 01:13 Furosemide (Lasix) 40 mg DAILY PO Last administered on 07/03/18 08:11; Admin Dose 40 MG; Start 06/25/18 at 01:13 Celecoxib (Celebrex) 100 mg BID PO Last administered on 07/03/18 08:09; Admin Dose 100 MG; Start 06/25/18 at 01:13 Epoetin Calos (Epogen (Esrd)) 10,000 units MoWeFr@17 SC Last administered on 07/01/18 18:20; Admin Dose 10,000 UNITS; Start 06/25/18 at 01:13 Multivit/Ca Carb/ B Cmplx/FA/Prenat (Fany-Jose Luis) 1 tab DAILY PO Last administered on 07/03/18 08:09; Admin Dose 1 TAB; Start 06/25/18 at 01:13 Lidocaine (Lidoderm) 1 patch DAILY TD Last administered on 07/03/18 08:12; Admin Dose 1 PATCH; Start 06/25/18 at 01:13 Metoclopramide HCl (Reglan) 5 mg AC MEALS PO Last administered on 07/03/18 12:06; Admin Dose 5 MG; Start 06/25/18 at 01:13 Lisinopril (Zestril) 2.5 mg QHS PO Last administered on 07/02/18 21:12; Admin Dose 2.5 MG; Start 06/25/18 at 01:13 Lactulose (Enulose) 20 gm DAILY PRN PO CONSTIPATION; Start 06/25/18 at 01:13 Tamsulosin HCl (Flomax) 0.4 mg HS PO Last administered on 07/02/18 21:11; Admin Dose 0.4 MG; Start 06/25/18 at 01:13 Albumin Human 100 ml @ 100 mls/hr DURING DIALYSIS PRN IV BLOOD PRESSURE SUPPORT; Start 06/25/18 at 01:13 Docusate Sodium (Colace) 100 mg Q12H PO Last administered on 07/03/18 08:09; Admin Dose 100 MG; Start 06/25/18 at 09:00 Famotidine (Pepcid) 20 mg Q24H PO Last administered on 07/02/18 21:12; Admin Dose 20 MG; Start 06/25/18 at 21:00 Senna (Senokot) 1 tab HS PO Last administered on 07/02/18 21:11; Admin Dose 1 TAB; Start 06/25/18 at 21:00 Lactulose (Enulose) 20 gm DAILY PRN PO CONSTIPATION; Start 06/25/18 at 06:00 Bisacodyl (Dulcolax Supp) 10 mg DAILY PRN [place] CONSTIPATION; Start 06/25/18 at 06:00 Acetaminophen (Tylenol Tab) 650 mg Q4H PRN PO PAIN Last administered on 07/03/18at 14:54; Admin Dose 650 MG; Start 06/25/18 at 06:00 Heparin Sodium (Porcine) (Heparin (1000 Units/ml)) 6,100 unit AFTER DIALYSIS CATHETER Last administered on 07/02/18 12:01; Admin Dose 6,100 UNIT; Start 06/27/18 at 16:30 Docusate Sodium/ Ferrous Fumarate (Shaw-Sequels) 1 tab BID PO Last administered on 07/03/18 08:09; Admin Dose 1 TAB; Start 06/30/18 at 21:00; Stop 07/30/18 at 20:59 MELLO SAUER MD Jul 03, 2018 16:12
[2018-07-03] MEDS: EPOETIN 10000 UNITS/1 ML INJ (ESRD) SC SCH (17:05)
--- NOTE | 2018-07-03 18:05 | NUR ---
RN note: Pt continues with periods of confusion but participated in therapies. No acute distress noted.
[2018-07-03 19:16] VITALS: BP 140/67; PULSE 86; RESP 18
--- NOTE | 2018-07-03 19:27 | PN ---
DATE: 07/03/2018 PSYCHOLOGY - INDIVIDUAL SESSION - [id number] This is a followup on a patient who was seen last week. The patient was seen sitting up in bed. The patient did remember seeing me last week. The patient was aware that he was very frustrated because he could not answer many of the questions presented to him. The patient was more alert today. The patient is still depressed about all his medical problems. I worked with the patient to try and enco urage him to continue to try and improve both physically and emotionally in regard to all the problem s he is dealing with. The patient was receptive to this. The patient is going to be discharged on . The patient is looking forward to this but is still struggling. Dictated By: RD ESQUIVEL PHD RK/DARLENE Conf#: [id number] DID#: [id number] CC: MELLO SAUER MD; CARO RENEE MD;*EndCC*
[2018-07-03] MEDS: TAMSULOSIN (SR) 0.4 MG CAP PO SCH (21:12)
[2018-07-03] MEDS: LISINOPRIL 5 MG TAB PO SCH (21:12)
[2018-07-03] MEDS: SENNA TAB PO SCH (21:12)
[2018-07-03] MEDS: ATORVASTATIN 20 MG TAB PO SCH (21:13)
[2018-07-03] MEDS: FAMOTIDINE 20 MG TAB PO SCH (21:13)
[2018-07-04] VITALS (19 sets, daily range): BP systolic 128–168; BP diastolic 59–83; PULSE 71–96; RESP 18–20
--- NOTE | 2018-07-04 05:39 | NUR ---
Slept well. On O2 3l/min for SOB on exertion, no resp distress noted. Needs attended. Denies pain. Call light within reached, bed alarm is activated. No acute distress noted.
--- NOTE | 2018-07-04 08:57 | PN ---
Date/Time of Note Date/Time of Note DATE: 07/04/18 TIME: 08:54 Assessment/Plan VTE Prophylaxis Risk score (from Ns)>0 risk: 4 SCD applied (from Ns): Yes Pharmacological prophylaxis: heparin Lines/Catheters IV Catheter Type (from Nrs): Central Line Central line still needed: Yes Urinary Cath still in place: No Assessment/Plan Problems: (1) End stage renal disease Status: Chronic Comment: Continue with hemodialysis and attempts at recuperative recovery in the acute rehabilitation unit protocol; placement of dialysis access as per nephrology (2) Hypertension Status: Chronic Comment: Fair control. And that he increase the EKATERINA inhibitor slightly from lisinopril 2.5 mg once a day to twice a day which is also going to be useful for his heart failure Qualifiers: Hypertension type: essential hypertension Qualified Codes: I10 - Essential (primary) hypertension (3) Hyperlipidemia Status: Chronic Comment: On statin treatment Qualifiers: Hyperlipidemia type: pure hypercholesterolemia Qualified Codes: E78.00 - Pure hypercholesterolemia, unspecified (4) Systolic CHF with reduced left ventricular function, NYHA class 3 Status: Chronic Comment: As noted above mild increase in EKATERINA inhibitor (5) Paroxysmal atrial fibrillation Status: Chronic Comment: Controlled (6) Prostatic hypertrophy Status: Chronic Comment: On tamsulosin at this time Result Diagram: 07/02/18 0840 07/02/18 0840 Subjective 24 Hr Interval Summary Free Text/Dictation Reports he is doing well today and is going to try and ambulate Constitutional: no complaints Cardiovascular: no complaints Gastrointestinal: no complaints Genitourinary: no complaints Exam/Review of Systems Vital Signs Vitals Vital Signs Date Temp Pulse Resp B/P (MAP) Pulse Ox O2 O2 Flow FiO2 Time Delivery Rate 07/04/18 98.8 89 20 168/79 94 Nasal 07:30 (108) Cannula 07/04/18 2.0 06:06 Intake and Output 07/03/18 07/03/18 07/04/18 1515:00 23:00 07:00 IntakeIntake Total 1440 ml 240 ml OutputOutput Total 500 ml BalanceBalance 940 ml 240 ml Exam Constitutional: alert, oriented Respiratory: clear to auscultation, normal air movement Cardiovascular: regular rate and rhythm, nl pulses Medications Medications Current Medications Acetaminophen (Tylenol Tab) 500 mg Q4H PRN PO MILD PAIN(1-3)OR ELEVATED TEMP; Start 06/25/18 at 01:13 Allopurinol (Zyloprim) 300 mg DAILY PO Last administered on 07/03/18 08:10; Admin Dose 300 MG; Start 06/25/18 at 01:13 Aspirin (Aspirin) 81 mg DAILY PO Last administered on 07/03/18 08:09; Admin Dose 81 MG; Start 06/25/18 at 01:13 Atorvastatin Calcium (Lipitor) 20 mg QHS PO Last administered on 07/03/18 21:13; Admin Dose 20 MG; Start 06/25/18 at 01:13 Clopidogrel Bisulfate (plaVIX) 75 mg DAILY PO Last administered on 07/03/18 08:09; Admin Dose 75 MG; Start 06/25/18 at 01:13 Isosorbide Mononitrate (Imdur) 120 mg DAILY PO Last administered on 07/03/18 08:11; Admin Dose 120 MG; Start 06/25/18 at 01:13 Metoprolol Tartrate (Lopressor) 25 mg BID PO Last administered on 07/03/18 21:12; Admin Dose 25 MG; Start 06/25/18 at 01:13 Tramadol HCl (Ultram) 50 mg Q6H PRN PO PAIN; Start 06/25/18 at 01:13 Lorazepam (Ativan) 0.5 mg Q8H PRN PO ANXIETY Last administered on 07/01/18 10:50; Admin Dose 0.5 MG; Start 06/25/18 at 01:13 Acetaminophen/ Hydrocodone Bitart ([place] (5/325)) 1 tab Q6H PRN PO PAIN LEVEL 4-6 Last administered on 06/29/18 14:09; Admin Dose 1 TAB; Start 06/25/18 at 01:13 Digoxin (Digoxin) 0.0625 mg DAILY@1300 PO Last administered on 07/03/18 14:00; Admin Dose 0.0625 MG; Start 06/25/18 at 01:13 Furosemide (Lasix) 40 mg DAILY PO Last administered on 07/03/18 08:11; Admin Dose 40 MG; Start 06/25/18 at 01:13 Celecoxib (Celebrex) 100 mg BID PO Last administered on 07/03/18 21:13; Admin Dose 100 MG; Start 06/25/18 at 01:13 Epoetin Calos (Epogen (Esrd)) 10,000 units MoWeFr@17 SC Last administered on 07/03/18 17:05; Admin Dose 10,000 UNITS; Start 06/25/18 at 01:13 Multivit/Ca Carb/ B Cmplx/FA/Prenat (Fany-Jose Luis) 1 tab DAILY PO Last administered on 07/03/18 08:09; Admin Dose 1 TAB; Start 06/25/18 at 01:13 Lidocaine (Lidoderm) 1 patch DAILY TD Last administered on 07/03/18 08:12; Admin Dose 1 PATCH; Start 06/25/18 at 01:13 Metoclopramide HCl (Reglan) 5 mg AC MEALS PO Last administered on 07/03/18 17:04; Admin Dose 5 MG; Start 06/25/18 at 01:13 Lisinopril (Zestril) 2.5 mg QHS PO Last administered on 07/03/18 21:12; Admin Dose 2.5 MG; Start 06/25/18 at 01:13 Lactulose (Enulose) 20 gm DAILY PRN PO CONSTIPATION; Start 06/25/18 at 01:13 Tamsulosin HCl (Flomax) 0.4 mg HS PO Last administered on 07/03/18 21:12; Admin Dose 0.4 MG; Start 06/25/18 at 01:13 Albumin Human 100 ml @ 100 mls/hr DURING DIALYSIS PRN IV BLOOD PRESSURE SUPPORT; Start 06/25/18 at 01:13 Docusate Sodium (Colace) 100 mg Q12H PO Last administered on 07/03/18 21:11; Admin Dose 100 MG; Start 06/25/18 at 09:00 Famotidine (Pepcid) 20 mg Q24H PO Last administered on 07/03/18 21:13; Admin Dose 20 MG; Start 06/25/18 at 21:00 Senna (Senokot) 1 tab HS PO Last administered on 07/03/18 21:12; Admin Dose 1 TAB; Start 06/25/18 at 21:00 Lactulose (Enulose) 20 gm DAILY PRN PO CONSTIPATION; Start 06/25/18 at 06:00 Bisacodyl (Dulcolax Supp) 10 mg DAILY PRN [place] CONSTIPATION; Start 06/25/18 at 06:00 Acetaminophen (Tylenol Tab) 650 mg Q4H PRN PO PAIN Last administered on 07/03/18at 14:54; Admin Dose 650 MG; Start 06/25/18 at 06:00 Heparin Sodium (Porcine) (Heparin (1000 Units/ml)) 6,100 unit AFTER DIALYSIS CATHETER Last administered on 07/02/18at 12:01; Admin Dose 6,100 UNIT; Start 06/27/18 at 16:30 Docusate Sodium/ Ferrous Fumarate (Shaw-Sequels) 1 tab BID PO Last administered on 07/03/18at 21:11; Admin Dose 1 TAB; Start 06/30/18 at 21:00; Stop 07/30/18 at 20:59 RUTH VAZQUEZ MD Jul 04, 2018 08:57
[2018-07-04] MEDS: ISOSORBIDE MONONITRATE(SR)60 MG TAB PO SCH ×2 (09:00→17:59)
[2018-07-04] MEDS: METOPROLOL 25 MG TAB PO SCH ×2 (09:00→17:58)
[2018-07-04] MEDS: LISINOPRIL 5 MG TAB PO SCH ×2 (09:00→17:59)
--- NOTE | 2018-07-04 09:02 | NUR ---
Called [facility]. per Barbara, confirmed for today HD after 2 pm. #[id number].
--- NOTE | 2018-07-04 09:31 | NUR ---
[facility] notified about discharge today. HD nurse will be here at 12 noon. Pt and DANIELA Okeefe made aware.
[2018-07-04] MEDS: METOCLOPRAMIDE 5 MG TAB PO SCH ×3 (09:55→17:26)
[2018-07-04] MEDS: DOCUSATE SODIUM 100 MG CAP PO SCH (09:55)
[2018-07-04] MEDS: ASPIRIN 81 MG TAB PO SCH (09:55)
[2018-07-04] MEDS: ALLOPURINOL 300 MG TAB PO SCH (09:55)
[2018-07-04] MEDS: FUROSEMIDE 40 MG TAB PO SCH (09:56)
[2018-07-04] MEDS: CELECOXIB 100 MG CAP PO SCH (09:56)
[2018-07-04] MEDS: FERROUS FUMARATE (SR) TAB PO SCH (09:56)
[2018-07-04] MEDS: CLOPIDOGREL 75 MG TAB PO SCH (09:57)
[2018-07-04] MEDS: MULTIVIT/CA CARB/B CMPLX/FA TAB PO SCH (09:57)
[2018-07-04] MEDS: LIDOCAINE 5% PATCH TD SCH (09:58)
--- NOTE | 2018-07-04 11:14 | NUR ---
2 Akira [place] cleaned and returned to gym. Addendum: 07/04/18 at 1245 by KIMBER GIPSON RN Marck Dawson foam cushion cleaned and returned to gym already.
--- NOTE | 2018-07-04 12:00 | DS ---
Date/Time of Note Date/Time of Note DATE: 07/04/18 TIME: 11:54 Discharge Summary Admission/Discharge Info Admit Date/Time Jun 24, 2018 at 21:30 Discharge Date/Time Discharge Diagnosis 1. Toxic metabolic encephalopathy. 2. Critical illness myopathy. 3. End-stage renal disease on hemodialysis. 4. Coronary artery disease, status post non-ST elevation myocardial infarction. 5. Pneumonia. 6. Dysphagia, on dysphagia soft diet. 7. 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 8. Hypertension. 9. Chronic heart failure. 10. Atrial fibrillation. 11. Impairments in self-care, mobility and cognition. Patient Condition: Fair Hospital Course The patient was admitted for comprehensive interdisciplinary rehabilitation and made gradual limited functional gains from a Max/Dep level to a max level for self care tasks and mobility. Patient was followed closely for medical issues including ESRD requiring hemodialysis, urinary retention, CAD, hypertension and dysphagia, and now is ready to discharge to a lower level of care. The DC meds are per the medication reconciliation sheet. The patient will follow up with PMD upon DC. Home Meds Reported Medications Acetaminophen* (Acetaminophen*) 500 MG Extra Strength Tablet, 500 MG PO Q4H PRN for PAIN AND OR ELEVATED TEMP, TAB 06/06/18 Tramadol Hcl* (Ultram*) 50 Mg Tablet, 50 MG PO Q6H PRN for PAIN, TAB 06/06/18 Diphenhydramine Hcl* (Benadryl*) 25 Mg Cap, 25 MG PO QHS PRN for ITCHING, CAP 06/06/18 Clonidine Hcl* (Clonidine Hcl*) 0.1 Mg Tab, 0.1 MG PO BID, TAB 06/06/18 Metoprolol Tartrate* (Lopressor*) 25 Mg Tablet, 25 MG PO BID, #60 TAB 06/06/18 Atorvastatin Calcium* (Atorvastatin Calcium*) 20 Mg Tablet, 20 MG PO QHS, #30 TAB 06/06/18 Isosorbide Mononitrate* (Isosorbide Mononitrate*) 120 Mg Tab.sr.24h, 120 MG PO DAILY, TAB.SA 06/06/18 Clopidogrel Bisulfate (Clopidogrel) 75 Mg Tablet, 75 MG PO DAILY, #30 TAB 06/06/18 Allopurinol* (Allopurinol*) 300 Mg Tablet, 300 MG PO DAILY, TAB 12/27/18 Aspirin* (Aspirin* Chew) 81 Mg Tab.chew, 81 MG PO DAILY, TAB.CHEW 06/06/18 Furosemide* (Furosemide*) 40 Mg Tablet, 40 MG PO DAILY, TAB 06/06/18 Digoxin* (Digox*) 125 Mcg Tablet, 0.0625 MG PO DAILY, TAB 06/06/18 Primary Care Provider MD VÍCTOR Nunez LIVA L. MD Jul 04, 2018 12:00
[2018-07-04] MEDS: DIGOXIN 0.125 MG TAB PO SCH (12:09)
--- NOTE | 2018-07-04 16:21 | NUR ---
RN verified with Dr. Begum. Pt does not need Epogen after dialysis today. May discharge to [facility] at 5:45 pm via Ambulance.
--- NOTE | 2018-07-04 18:09 | NUR ---
Gave report to PEPE Haas at [facility]. RN gave Lisinopril 2.5 mg tablet, Imdur 120 mg tablet, Metoprolol 25 mg tablet for Vitals of BP 161/63, HR 96, RR 18/min, T 98.5 F (o). Pt on o2 2 L/min via nasal cannula PRN. Awaiting for ambulance.
--- NOTE | 2018-07-04 22:42 | CONS ---
Assessment/Plan Assessment/Plan Hospital Course (Demo Recall) 1. End-stage renal disease on maintenance hemodialysis Sunday. He is due for a dialysis treatment today which has been ordered . After dialysis he will be transferred to [facility] . 2. Metabolic encephalopathy , his level of consciousness is alternating between being wide awake and then being quite lethargic. He seems more lethargic today with an abnormal breathing pattern . 3. leukocytosis. His white blood count is decreasing. He has been afebrile. 4. Coronary artery disease, recent NSTEMI 5. Critical illness myopathy . He is still quite weak. Physical therapy is doing their best to work with him. 6. Paroxysmal atrial fibrillation 7. Anemia of chronic kidney disease 8. He has had a small amount of bright red rectal bleeding. Could be hemorrhoidal , not currently active . 9. I have asked Dr. Slater to see the patient and review his vascular access for hemodialysis.He will schedule a revision of his L upper arm AV fistula at some time in the future . Consultation Date/Type/Reason Admit Date/Time Jun 24, 2018 at 21:30 Initial Consult Date Type of Consult Nephrology Date/Time of Note DATE: 07/04/18 TIME: 22:33 24 HR Interval Summary Free Text/Dictation Will is being seen in nephrologic follow up . He very lethargic and not responding to verbal stmuli . He seems to an abnormal breathing pattern , like Bairon Reece respirations . Subjective hx not possible: pt non-verbal Exam/Review of Systems Exam Vitals Vital Signs Date Temp Pulse Resp B/P (MAP) Pulse Ox O2 O2 Flow FiO2 Time Delivery Rate 07/04/18 Nasal 19:21 Cannula 07/04/18 2.0 18:32 Intake and Output 07/03/18 07/03/18 07/04/18 1515:00 23:00 07:00 IntakeIntake Total 1440 ml 240 ml OutputOutput Total 500 ml BalanceBalance 940 ml 240 ml Constitutional: non-verbal, frail Psych: confusion Respiratory: clear to auscultation Cardiovascular: regular rate and rhythm Gastrointestinal: soft, non-tender Musculoskeletal: nl extremities to inspection Results Result Diagram: 07/02/18 0840 07/02/18 0840 DEMARCUS CHING MD Jul 04, 2018 22:42
[2018-07-08] MEDS ORDERED: ROCURONIUM 50 MG INJ ONE (06:22)
[2018-07-08] MEDS ORDERED: FENTAnyl 50 MCG/ML VIAL ONE (06:22)
[2018-07-08] MEDS ORDERED: MIDAZOLAM 1 MG/ML 2 ML INJ ONE (06:22)
[2018-07-08] MEDS ORDERED: NEOSTIGMINE 3 MG/3 ML SYRINGE ONE (06:22)
[2018-07-08] MEDS ORDERED: PROPOFOL 20 ML ONE (06:22)
[2018-07-08] MEDS ORDERED: GLYCOPYRROLATE 0.4 MG INJ ONE (06:22)
[2018-07-08] MEDS ORDERED: LIDOCAINE 2% (SDV) 5 ML INJ ONE (06:22)
[2018-07-08] MEDS ORDERED: ONDANSETRON 4 MG INJ ONE (06:23)
[2018-07-08] MEDS ORDERED: DEXAMETHASONE 4 MG/ML 5 ML INJ ONE (06:23)
--- NOTE | 2018-07-11 11:24 | NUR ---
[facility] PT Discharge Summary Date of Discharge: 07/04/18 Patient Name: VENANCIO SULTANA MR#: [id number] Height: 5 ft 10 in Weight: 218 lbs 4.122 oz 99.000 kg Reason for Visit: ENCEPHALOPATHY Precautions: fall risk, confused, 2PA for safety. LS corset for LBP Date: 07/04/18 Time: 1124 User: DALI GAMINO Patient's progress, Adm-->DC: Short-term Goals: Bed Mobility Max A Transfers Max A with least restrictive device WC mobility Max A 25ft Pt made conservative gains during his stay at [facility]. At the time of eval, pt was dependent for bed mobility, dependent for transfers, dependent for WC mobility. Pt required 2PA for safety/steadying. At the time of dc, pt was mod assist for bed mobility, dependent for transfers, mod assist for 50ft. Pt required 2PA for safety. Barriers: confused, poor retention, multiple refusals, poor carryover of learning, resistive at times, poor sequencing, poor problem solving, followed less than 50% simple commands. Recommended home with HHPT and 24hr assistance. Pt dc'd to SNF.
--- NOTE | 2018-07-25 15:35 | NUR ---
[facility] OT Discharge Summary Date of Discharge: 07/04/18 Patient Name: VENANCIO SULTANA MR#: [id number] Height:5 ft 10 in Weight:218 lbs 4.122 oz 99.000 kg Reason for Visit: ENCEPHALOPATHY Precautions: fall risk, confusion Date: 07/25/18 Time: 1535 User: SUSHILA PEREYRA Short-term Goals: 1. Mod I w/ Feeding 2. Sup w/ Grooming 3. Mod A w/ Bathing 4. Sup/ Mod A w/ UB/LB dress 5. Mod A w/ Toileting - pt met some of OT goals Upon admission, pt's functional levels were: Feeding: min A, Grooming: Mod A, Bathing: TD, UB/LB dress: Mod/ TD, Toileting: TD, Funct Transfers: TD. Pt made good progress towards goals through ADL retraining, NMRE, thera ex and actv, pt and cg education on safety. Barriers to tx were: poor carryover of learning d/t pt's cognitive impairments. Pt functional levels upon d/c are: Feeding: SUP, Grooming: Min A, Bathing: Max A, UB/LB dress: Min/ TD, Toileting: TD, Func transfers: TD. PT d/jacqueline to SNF.
== END 2018-07-04 19:00 | DRG 91 ==
LOC: VRC 21:30
PROVIDERS: ADMIT Physical Medicine & Rehabilitation; ATTEND Internal Medicine
PROC: 5A1D70Z Performance of Urinary Filtration, Intermittent, Less than 6 Hours Per Day (ICD-10-PCS; principal; 2018-06-25)
DX: G92 Toxic encephalopathy (principal); N18.6 End stage renal disease; J18.9 Pneumonia, unspecified organism; G72.81 Critical illness myopathy; I13.2 Hypertensive heart and chronic kidney disease with heart failure and with stage 5 chronic kidney disease, or end stage renal disease; I50.22 Chronic systolic (congestive) heart failure; K62.5 Hemorrhage of anus and rectum; Z99.2 Dependence on renal dialysis; I25.10 Atherosclerotic heart disease of native coronary artery without angina pectoris; Z95.1 Presence of aortocoronary bypass graft; I73.9 Peripheral vascular disease, unspecified; M19.91 Primary osteoarthritis, unspecified site; E79.0 Hyperuricemia without signs of inflammatory arthritis and tophaceous disease; H10.32 Unspecified acute conjunctivitis, left eye; R13.10 Dysphagia, unspecified; I48.0 Paroxysmal atrial fibrillation; F06.31 Mood disorder due to known physiological condition with depressive features; F06.8 Other specified mental disorders due to known physiological condition; R33.9 Retention of urine, unspecified; D63.8 Anemia in other chronic diseases classified elsewhere
CPT/HCPCS: 71045; 72100; 80053; 81001; 82728; 83540; 85025; 86850; 86900; 86901; 87081; 87086; 90686; 90935; 92507; 92523; 92526; 92610; 97110; 97112; 97163; 97167; 97530; 97535; 97542; J1100; J1644; J2250; J2405; J2710; J3010; P9047; Q4081

== ENCOUNTER 2018-08-02 08:11 | Day surgery (SDC) | payer MEDICARE, BC ==
[~2018-08-02] VITALS: Ht 170.2 cm; Wt 101.7 kg
[2018-08-02] VITALS (13 sets, daily range): BP systolic 98–138; BP diastolic 43–64; PULSE 75–84; RESP 16–20; Ht 170.2 cm; Wt 101.7 kg
[~2018-08-02 08:11] MED LIST changes: -CALC500T91 PO; -PRIM50TA38 PO
[2018-08-02] MEDS ORDERED: LISI-313 PO (09:00)
[2018-08-02] MEDS ORDERED: ASPI-817 PO (09:00)
[2018-08-02] MEDS ORDERED: ISOS120T15 PO (09:00)
[2018-08-02] MEDS ORDERED: LACT20SO2 PO (09:00)
[2018-08-02] MEDS ORDERED: CELE100C PO (09:00)
[2018-08-02] MEDS ORDERED: ACET-141 PO (09:00)
[2018-08-02] MEDS ORDERED: FAMO20TA18 PO (09:00)
[2018-08-02] MEDS ORDERED: CEFAZOLIN 1 GM INJ ONE (09:00)
[2018-08-02] MEDS ORDERED: METO5TAB58 PO (09:00)
[2018-08-02] MEDS ORDERED: FURO40TA4 PO (09:00)
[2018-08-02] MEDS ORDERED: SENN-120 PO (09:01)
[2018-08-02] MEDS ORDERED: TAMS0.4C2 PO (09:02)
[2018-08-02] MEDS ORDERED: LORA0.5T PO (09:02)
[2018-08-02] MEDS ORDERED: LIDO700A29 TP (09:05)
--- NOTE | 2018-08-02 09:38 | PREAC ---
Date/Time of Note Date/Time of Note DATE: 08/02/18 TIME: 09:37 Anesthesia Eval and Record Evaluation Time Pre-Procedure Interview DATE: 08/02/18 TIME: 09:37 Age 88 Sex male NPO: 8 hrs Preoperative diagnosis ESRD Planned procedure RIGHT AV FISTULA Past Medical History Past Medical History: Includes Cardio: HTN, CAD Pulm: Smoking Hx, COPD Renal: ESRD on dialysis Surgery & Anesthesia Issues No known issue Meds Anticoagulation: No Beta Inna within 24 hr: Yes Reported Medications Lidocaine (Lidoderm) 1 Each Adh..patch, 1 EACH TP DAILY 08/02/18 Lorazepam* (Lorazepam*) 0.5 Mg Tablet, 0.5 MG PO Q8 PRN for ANXIETY, TAB 08/02/18 Tamsulosin Hcl* (Tamsulosin Hcl*) 0.4 Mg Cap.er.24h, 0.4 MG PO HS, CAP 08/02/18 Sennosides* (Senna Lax*) 8.6 Mg Tablet, 1 TAB PO DAILY, TAB 08/02/18 Metoclopramide* (Reglan*) 5 Mg Tablet, 5 MG PO AC MEALS AND BEDTIME, TAB 08/02/18 Lisinopril* (Lisinopril*) 5 Mg Tablet, 5 MG PO DAILY, #30 TAB 08/02/18 Lactulose* (Lactulose*) 20 Gm/30 Ml Solution, 20 GM PO DAILY PRN for CONSTIPATION, ML 08/02/18 Isosorbide Mononitrate* (Isosorbide Mononitrate*) 120 Mg Tab.sr.24h, 120 MG PO HS, TAB.SA 08/02/18 Furosemide* (Furosemide*) 40 Mg Tablet, 40 MG PO DAILY, TAB 08/02/18 Famotidine* (Famotidine*) 20 Mg Tablet, 20 MG PO DAILY, #30 TAB 08/02/18 Acetaminophen* (Acetaminophen*) 500 MG Extra Strength Tablet, 500 MG PO Q4H PRN for PAIN AND OR ELEVATED TEMP, TAB 08/02/18 Celecoxib* (Celebrex*) 100 Mg Capsule, 100 MG PO BID, CAP 08/02/18 Aspirin* (Aspirin* EC) 81 Mg Tablet.dr, 81 MG PO DAILY, TAB 08/02/18 Acetaminophen* (Acetaminophen*) 500 MG Extra Strength Tablet, 500 MG PO Q4H PRN for PAIN AND OR ELEVATED TEMP, TAB 12/27/18 Diphenhydramine Hcl* (Benadryl*) 25 Mg Cap, 25 MG PO QHS PRN for ITCHING, CAP 06/06/18 Metoprolol Tartrate* (Lopressor*) 25 Mg Tablet, 25 MG PO BID, #60 TAB 06/06/18 Atorvastatin Calcium* (Atorvastatin Calcium*) 20 Mg Tablet, 20 MG PO QHS, #30 TAB 06/06/18 Clopidogrel Bisulfate (Clopidogrel) 75 Mg Tablet, 75 MG PO DAILY, #30 TAB 06/06/18 Allopurinol* (Allopurinol*) 300 Mg Tablet, 300 MG PO DAILY, TAB 06/06/18 Digoxin* (Digox*) 125 Mcg Tablet, 0.0625 MG PO DAILY, TAB 06/06/18 Discontinued Reported Medications Tramadol Hcl* (Ultram*) 50 Mg Tablet, 50 MG PO Q6H PRN for PAIN, TAB 06/06/18 Clonidine Hcl* (Clonidine Hcl*) 0.1 Mg Tab, 0.1 MG PO BID, TAB 06/06/18 Isosorbide Mononitrate* (Isosorbide Mononitrate*) 120 Mg Tab.sr.24h, 120 MG PO DAILY, TAB.SA 06/06/18 Aspirin* (Aspirin* Chew) 81 Mg Tab.chew, 81 MG PO DAILY, TAB.CHEW 06/06/18 Furosemide* (Furosemide*) 40 Mg Tablet, 40 MG PO DAILY, TAB 06/06/18 Meds reviewed: Yes Allergies Coded Allergies: Penicillins (Unverified Allergy, Severe, ANAPHYLACTIC, 08/02/18) Allergies Reviewed: Yes Labs/Studies Labs Reviewed: Reviewed by anesthesiologist test: N/A Pre-procedure Exam Airway: Adequate mouth opening, Adequate thyromental dist Mallampati: Mallampati II Teeth: Normal Lung: Normal Heart: Normal ASA Physical Status ASA physical status: 3 Emergency: None Planned Anesthetic Nerve block: Brachial plexus (right) Planned Pain Management Single shot nerve block Pre-operative Attestations Prior to commencing anesthesia and surgery, the patient was re-evaluated, there was verification of: *The patient's identity *The results of appropriate recent lab work and preoperative vital signs *The above evaluation not changing prior to induction *Anesthetic plan, risk benefits, alternative and complications discussed with patient/family; questions answered; patient/family understands, accepts and wishes to proceed. DANNA EISENBERG Aug 02, 2018 09:38
[2018-08-02] MEDS ORDERED: MIDAZOLAM 1 MG/ML 2 ML INJ ONE ×2 (09:42→10:44)
[2018-08-02] MEDS ORDERED: ROPIVACAINE 0.5 % 30 ML VIAL ONE (09:43)
[2018-08-02] MEDS ORDERED: BUPIVACAINE 0.5% (SDV) 30 ML INJ ONE (09:43)
--- NOTE | 2018-08-02 09:48 | HPN ---
Date/Time of Note Date/Time of Note DATE: 08/02/18 TIME: 09:48 Interval H&P Admission Note Pt. seen H&P reviewed: No system changes TERRANCE FLYNN MD Aug 02, 2018 09:48
[2018-08-02] MEDS ORDERED: HEPARIN 1000 UNITS/ML 10 ML INJ IRR ONE (10:40)
--- NOTE | 2018-08-02 11:41 | SIPON ---
Date/Time of Note Date/Time of Note DATE: 08/02/18 TIME: 11:40 Operative Report Preoperative Diagnosis ESRD Postoperative Diagnosis same Operation/Procedure Performed R arm brachial to axillary AV graft creation (6mm Artegraft) Surgeon see signature line mobile sales assistant LILY Christianson Anesthesia: other Estimated blood loss: 0 - 10 ml's Transfusion Required none Specimen none Grafts/Implants 6 mm Artegraft Complications none TERRANCE FLYNN MD Aug 02, 2018 11:41
--- NOTE | 2018-08-02 12:07 | PAC ---
Date/Time of Note Date/Time of Note DATE: 08/02/18 TIME: 12:07 Post-Anesthesia Notes Post-Anesthesia Note Last documented vital signs Vital Signs Date Temp Pulse Resp B/P (MAP) Pulse Ox O2 O2 Flow FiO2 Time Delivery Rate 08/02/18 98.1 75 16 120/58 92 Room Air 12:07 (78) Activity: WNL Respiratory function: WNL Cardiovascular function: WNL Mental status: Baseline Pain reasonably controlled: Yes Hydration appropriate: Yes Nausea/Vomiting absent: Yes DANNA EISENBERG Aug 02, 2018 12:07
--- NOTE | 2018-08-02 12:16 | OPR ---
DATE OF OPERATION: 08/02/2018 PREOPERATIVE DIAGNOSIS: Cirrhosis. POSTOPERATIVE DIAGNOSES: Cirrhosis. PROCEDURE PERFORMED: Creation of right upper arm AV graft. SURGEON: Terrance Slater MD SUPPLY PERSON: LILY Christianson ESTIMATED BLOOD LOSS: Minimal. COMPLICATIONS: No intraprocedural complications. INDICATIONS: This is an 88-year-old gentleman with diabetes, hypertension, end-stage renal disease, had multiple failed accesses using the . He has a right femoral PermCath currently for dialysis . They brought him in today for creation of right upper arm AV graft. DESCRIPTION OF PROCEDURE: The patient was brought to the operating room and placed in supine positio n. After a right arm block was placed, the right arm was prepped and draped in the usual sterile fas hion. I then made 2 incisions in the upper arm, one just above the elbow over the brachial artery pu lse and then one in the upper arm over the axillary artery pulse. I then dissected down through the subcutaneous tissue. I exposed the brachial artery just above the elbow and the axillary vein in the upper arm. They are both excellent size vessel, soft and healthy. I then tunneled a 6 mm Artegraft between the 2 incisions using a Real tunneler. I then did the venous anastomosis. I clamped the axillary vein proximally and distally and about 1.5 cm long venotomy, I spatulated the upper end of graft to fit the vein using 6-0 Prolene suture in a running standard surgical fashion. I removed the clamps and flushed easily. There was good backflow. I then reclamped the graft. I then clamped th e brachial artery proximally and distally. I made an 8 mm long anterior arteriotomy and I anastomose d the lower end of graft to the side of the brachial artery using 6-0 Prolene suture in a running sta ndard vascular surgical fashion. I removed the clamps. There was a soft thrill in the graft. There was good hemostasis. I closed the skin incisions in 2 layers using an inner layer of 3-0 Vicryl and an outer layer of 4-0 Monocryl subcuticular suture. Sterile dressing was applied. The patient was transferred to the recovery room in stable condition. He tolerated the procedure well without any co mplications. Dictated By: TERRANCE ORDONEZ/DARLENE Conf#: [id number] DID#: [id number] CC: DEMARCUS CHING MD; MELLO SAUER MD;*[facility]*
[2018-08-02] MEDS ORDERED: OXYCODONE/ACETAMINOPHEN (5/325) TAB PO PRN ×2 (12:30)
[2018-08-02] MEDS ORDERED: MEPERIDINE 25 MG INJ IV PRN (12:30)
[2018-08-02] MEDS ORDERED: EPHEDrine SULFATE 50 MG/5 ML SYG IV PRN (12:30)
[2018-08-02] MEDS ORDERED: KETOROLAC 30 MG INJ IV PRN (12:30)
[2018-08-02] MEDS ORDERED: DIPHENHYDRAMINE 50 MG INJ IV PRN (12:30)
[2018-08-02] MEDS ORDERED: LABETALOL HCL 20MG INJ IV PRN (12:30)
[2018-08-02] MEDS ORDERED: ALBUTEROL 0.083% (NEB) 2.5 MG/3 ML AMP HHN PRN (12:30)
[2018-08-02] MEDS ORDERED: HYDROmorphONE 1 MG/5 ML IV SYRINGE IV PRN ×2 (12:30)
[2018-08-02] MEDS ORDERED: ONDANSETRON 4 MG INJ IV PRN (12:30)
[2018-08-02] MEDS ORDERED: hydrALAzine 20 MG INJ IV PRN (12:30)
== END 2018-08-02 14:05 | disposition home or self-care (01) ==
LOC: SDS 08:11
PROVIDERS: ATTEND Surgery Vascular Surgery
DX: I12.0 Hypertensive chronic kidney disease with stage 5 chronic kidney disease or end stage renal disease (principal); N18.6 End stage renal disease; E11.9 Type 2 diabetes mellitus without complications; I25.10 Atherosclerotic heart disease of native coronary artery without angina pectoris; J44.9 Chronic obstructive pulmonary disease, unspecified; Z79.82 Long term (current) use of aspirin
CPT/HCPCS: 36821; 84132; J1644; J2250; J2795; C1768; J0690

== ENCOUNTER 2018-08-27 10:42 | Inpatient (IN) | payer MEDICARE, BC ==
[~2018-08-27] VITALS: Ht 170.2 cm; Wt 90.1 kg
[2018-08-27] VITALS (8 sets, daily range): BP systolic 96–142; BP diastolic 53–62; PULSE 75–87; RESP 16–18; Ht 170.2 cm; Wt 90.1 kg
[~2018-08-27 10:42] MED LIST changes: +ASPI-817 PO; -ASPI-903 PO; +CELE100C PO; -CLON-379 PO; +FAMO20TA18 PO; +LACT20SO2 PO; +LIDO700A29 TP; +LISI-313 PO; +LORA0.5T PO; +METO5TAB58 PO; +SENN-120 PO; +TAMS0.4C2 PO; -TRAM50TA PO
--- NOTE | 2018-08-27 11:30 | ERD ---
ER Documentation Chief Complaint Chief Complaint HPI 88-year-old man brought in by EMS for initial complaints of Cornell catheter dis lodgment from the right groin although patient states he has been feeling short of breath and congested times 2 days, he has had a mild cough as well. He denies chest pain, no fevers or chills, no vomiting or diarrhea, no headache or blurry vision. Patient had a left upper extremity AV fistula placed but is unsure when it will be used for hemodialysis. ROS All systems reviewed and are negative except as per history of present illness. Medications Home Meds Reported Medications Docusate Sodium* (Colace*) 100 Mg Capsule, 100 MG PO BID, #60 CAP 08/27/18 Albuterol Sulfate* (Albuterol Sulfate* Neb) 0.083%-3 Ml Neb, 2.5 MG NEB Q6 PRN for WHEEZING AND SOB, #30 VIAL 08/27/18 Multivit/Ca Carb/B Cmplx/Fa* (Fany-Jose Luis*) 1 Tab Tab, 1 TAB PO DAILY, TAB 08/27/18 Tamsulosin Hcl* (Tamsulosin Hcl*) 0.4 Mg Cap.er.24h, 0.4 MG PO HS, CAP 08/02/18 Sennosides* (Senna Lax*) 8.6 Mg Tablet, 1 TAB PO DAILY, TAB 08/02/18 Metoclopramide* (Reglan*) 5 Mg Tablet, 5 MG PO AC MEALS AND BEDTIME, TAB 08/02/18 Lisinopril* (Lisinopril*) 5 Mg Tablet, 5 MG PO DAILY, #30 TAB 08/02/18 Lactulose* (Lactulose*) 20 Gm/30 Ml Solution, 20 GM PO DAILY PRN for CONSTIPATION, ML 08/02/18 Isosorbide Mononitrate* (Isosorbide Mononitrate*) 120 Mg Tab.sr.24h, 120 MG PO HS, TAB.SA 08/02/18 Furosemide* (Furosemide*) 40 Mg Tablet, 40 MG PO DAILY, TAB 08/02/18 Famotidine* (Famotidine*) 20 Mg Tablet, 20 MG PO DAILY, #30 TAB 08/02/18 Celecoxib* (Celebrex*) 100 Mg Capsule, 100 MG PO BID, CAP 08/02/18 Aspirin* (Aspirin* EC) 81 Mg Tablet.dr, 81 MG PO DAILY, TAB 08/02/18 Acetaminophen* (Acetaminophen*) 500 MG Extra Strength Tablet, 500 MG PO Q4H PRN for PAIN AND OR ELEVATED TEMP, TAB 06/06/18 Metoprolol Tartrate* (Lopressor*) 25 Mg Tablet, 25 MG PO BID, #60 TAB 06/06/18 Atorvastatin Calcium* (Atorvastatin Calcium*) 20 Mg Tablet, 20 MG PO QHS, #30 TAB 06/06/18 Clopidogrel Bisulfate (Clopidogrel) 75 Mg Tablet, 75 MG PO DAILY, #30 TAB 06/06/18 Allopurinol* (Allopurinol*) 300 Mg Tablet, 300 MG PO DAILY, TAB 06/06/18 Digoxin* (Digox*) 125 Mcg Tablet, 0.0625 MG PO DAILY, TAB 06/06/18 Discontinued Reported Medications Lidocaine (Lidoderm) 1 Each Adh..patch, 1 EACH TP DAILY 08/02/18 Lorazepam* (Lorazepam*) 0.5 Mg Tablet, 0.5 MG PO Q8 PRN for ANXIETY, TAB 08/02/18 Acetaminophen* (Acetaminophen*) 500 MG Extra Strength Tablet, 500 MG PO Q4H PRN for PAIN AND OR ELEVATED TEMP, TAB 08/02/18 Diphenhydramine Hcl* (Benadryl*) 25 Mg Cap, 25 MG PO QHS PRN for ITCHING, CAP 06/06/18 Allergies Allergies: Coded Allergies: Penicillins (Unverified Allergy, Severe, ANAPHYLACTIC, 08/27/18) PMhx/Soc History of hypertension, stroke, CAD and CABG, history of non-STEMI, ischemic cardiomyopathy with a left ventricular ejection fraction of 25%, end-stage renal disease on hemodialysis, hypercholesterolemia, peripheral vascular disease, osteoarthritis, BPH History of Surgery: Yes (CABG, RDayo COMERTON, LAV FISTULA) Anesthesia Reaction: No Hx Neurological Disorder: No Hx Respiratory Disorders: Yes (COUGH NOW, MD AWARE) Hx Cardiac Disorders: Yes (CAD,AFIBB, CHF,HTN, ) Hx Psychiatric Problems: No Hx Miscellaneous Medical Probl: No Hx Alcohol Use: No Hx Substance Use: No Hx Tobacco Use: No FmHx Family History: diabetes Physical Exam Vitals Vital Signs Date Temp Pulse Resp B/P (MAP) Pulse Ox O2 O2 Flow FiO2 Time Delivery Rate 08/27/18 Nasal 4.0 11:56 Cannula 08/27/18 Nasal 4 11:52 Cannula 08/27/18 81 19 131/57 98 Mask 10.0 11:49 (81) 08/27/18 80 20 96 Nasal 6.0 11:48 Cannula 08/27/18 98.7 83 19 137/61 98 11:15 (86) Physical Exam GENERAL: Well-developed, well-nourished, appears dehydrated, dyspneic, afebrile HEENT: Dry mucous membranes, pink conjunctiva, no cervical spine tenderness or step-off deformities NEURO: Alert and oriented 3, cranial nerves II through XII intact bilaterally, pupils equal round reactive to light LUNGS: Crackles bilaterally, scattered wheezes ABDOMEN: Soft nontender, no guarding, no rigidity, no rebound, no psoas sign no obturator sign. SKIN: Warm and dry to touch, no abrasions, contusions, or hematomas, no lacerations, no ecchymosis, no target lesions, and without ulcers EXTREMITIES: No clubbing cyanosis or edema, calves are bilaterally symmetrical, no Homans sign, no popliteal cord sign. Distal pulses equal and bilateral PSYCH: Normal affect without agitation or irritability Result Diagram: 08/27/18 1150 08/27/18 1150 Results 24 hrs Laboratory Tests Test 08/27/18 11:50 White Blood Count 13.6 10^3/ul Red Blood Count 3.37 10^6/ul Hemoglobin 8.8 g/dl Hematocrit 30.5 % Mean Corpuscular Volume 90.5 fl Mean Corpuscular Hemoglobin 26.1 pg Mean Corpuscular Hemoglobin Concent 28.9 g/dl Red Cell Distribution Width 19.9 % Platelet Count 300 10^3/UL Mean Platelet Volume 9.3 fl Immature Granulocytes % 1.000 % Neutrophils % 84.4 % Lymphocytes % 4.7 % Monocytes % 5.6 % Eosinophils % 3.6 % Basophils % 0.7 % Nucleated Red Blood Cells % 0.0 /100WBC Immature Granulocytes # 0.140 10^3/ul Neutrophils # 11.5 10^3/ul Lymphocytes # 0.6 10^3/ul Monocytes # 0.8 10^3/ul Eosinophils # 0.5 10^3/ul Basophils # 0.1 10^3/ul Nucleated Red Blood Cells # 0.0 10^3/ul Sodium Level 141 mmol/L Potassium Level 4.6 mmol/L Chloride Level 101 mmol/L Carbon Dioxide Level 23 mmol/L Anion Gap 17 Blood Urea Nitrogen 67 mg/dl Creatinine 6.33 mg/dl Est Glomerular Filtrat Rate mL/min mL/min Glucose Level 87 mg/dl Calcium Level 8.8 mg/dl Total Bilirubin 0.1 mg/dl Direct Bilirubin 0.00 mg/dl Indirect Bilirubin 0.1 mg/dl Aspartate Amino Transf (AST/SGOT) 29 IU/L Alanine Aminotransferase (ALT/SGPT) 10 IU/L Alkaline Phosphatase 192 IU/L Troponin I Pending Total Protein 6.6 g/dl Albumin 3.5 g/dl Globulin 3.10 g/dl Albumin/Globulin Ratio 1.12 Lipase 89 U/L Current Medications Medications Dose Sig/Carmelita Start Time Status Last (Trade) Ordered Route PRN Stop Time Admin Dose Reason Admin Albuterol 10 mg ONCE STAT 08/27/18 DC 08/27/18 (Proventil INH 11:33 11:48 0.5% (Neb)) 08/27/18 11:34 Sodium 250 ml @ Q1H STAT 08/27/18 DC 08/27/18 Chloride 250 mls/hr IV 11:33 11:49 08/27/18 12:32 Procedures/MDM IV line was established patient was placed on personnel monitor rhythm strip revealed a sinus rhythm at about 80 bpm with upright P and T waves. Patient was afebrile 1 view chest x-ray performed, read by me revealed sternotomy wires and atelectatic changes bilaterally, bilateral pulmonary edema and vascular congestion EKG performed, read by me revealed a normal sinus rhythm at 80 bpm, normal axis, first-degree AV block, narrow QRS complex, no concerning ST elevations or depressions noted I administered albuterol 10 mg via nebulizer for wheezing and a small bolus of IV normal saline for dehydration. CBC reveals anemia, electrolytes reveal end-stage kidney disease, liver function tests normal, troponin positive at 0.3. Influenza swabs negative I administered aspirin 324 mg p.o. for cardioprotective measures. Patient has no complaints of chest pain. I spoke to Dr. Davalos regarding the patient's presentation and symptomatology and he agreed to consult the patient for nephrology and will contact Dr. Newman for hemodialysis catheter placement. Patient will be admitted to telemetry setting under Dr. Merritt for continued management and hemodialysis Departure Diagnosis: Primary Impression: End stage renal disease Additional Impressions: Complication of vascular access for dialysis Encounter type: initial encounter Qualified Codes: T82.9XXA - Unspecified complication of cardiac and vascular prosthetic device, implant and graft, initial encounter CHF (congestive heart failure) Heart failure type: combined systolic and diastolic Heart failure chronicity: acute Qualified Codes: I50.41 - Acute combined systolic (congestive) and diastolic (congestive) heart failure Dehydration Acute bronchitis Bronchitis organism: unspecified organism Qualified Codes: J20.9 - Acute bronchitis, unspecified Non-STEMI (non-ST elevated myocardial infarction) Condition: RITESH Gonsales MD Aug 27, 2018 11:29
[2018-08-27] MEDS ORDERED: SOD CHLORIDE 0.9% 250 ML IV STA (11:33)
[2018-08-27] MEDS ORDERED: ALBUTEROL 0.5% (NEB) 2.5 MG/0.5 ML AMP INH STA (11:33)
[2018-08-27] MEDS ORDERED: NEPH PO (12:09)
[2018-08-27] MEDS ORDERED: ALBU2.5V3 NEB (12:10)
[2018-08-27] MEDS ORDERED: DOCU-144 PO (12:13)
[2018-08-27] MEDS ORDERED: ASPIRIN 81 MG TAB ONE (12:42)
[2018-08-27] MEDS ORDERED: ASPIRIN 81 MG TAB PO ONE (13:00)
[2018-08-27] MEDS ORDERED: HYDROCODONE/APAP (5/325) TAB PO PRN (13:30)
[2018-08-27] MEDS ORDERED: NACL 0.9% 3 ML SYG IV SCH (13:30)
[2018-08-27] MEDS ORDERED: LACTULOSE 30ML CUP PO PRN (13:30)
[2018-08-27] MEDS ORDERED: DOCUSATE SODIUM 100 MG CAP PO PRN (13:30)
[2018-08-27] MEDS ORDERED: ACETAMINOPHEN 325 MG TAB PO PRN (13:30)
[2018-08-27] MEDS ORDERED: BISACODYL (EC) 5 MG TAB PO PRN (13:30)
--- NOTE | 2018-08-27 13:44 | HP ---
Date/Time of Note Date/Time of Note DATE: 08/27/18 TIME: 13:34 Assessment/Plan VTE Prophylaxis SCD applied (from Nsg): Yes Pharmacological prophylaxis: heparin Lines/Catheters IV Catheter Type (from Nrsg): Saline Lock Assessment/Plan Problems: (1) Complication of vascular access for dialysis Status: Acute Comment: Vascular surgery and renal have been notified of this prior to my n otification. He will get these items taken care of so that he can continue with dialysis and then return to the extended care facility. Finally the goal was for him to be able to go home at some point Qualifiers: Encounter type: initial encounter Qualified Codes: T82.9XXA - Unspecified complication of cardiac and vascular prosthetic device, implant and graft, initial encounter (2) End stage renal disease Status: Chronic Comment: Continue with hemodialysis (3) Conjunctivitis Status: Acute Comment: Tobramycin eyedrops times 7 days Qualifiers: Conjunctivitis type: acute Acute conjunctivitis type: viral Laterality: bilateral Qualified Codes: B30.9 - Viral conjunctivitis, unspecified (4) CAD (coronary artery disease) Status: Chronic Comment: Stable and quiescent at this time Qualifiers: Coronary Disease-Associated Artery/Lesion type: [place] artery [place] vs. transplanted heart: [place] heart Associated angina: without angina Qualified Codes: I25.10 - Atherosclerotic heart disease of [place] coronary artery without angina pectoris (5) Reactive airway disease with acute exacerbation Status: Acute Comment: Breathing treatments for now Qualifiers: Asthma severity: moderate Asthma persistence: persistent Qualified Codes: J45.41 - Moderate persistent asthma with (acute) exacerbation (6) Systolic CHF with reduced left ventricular function, NYHA class 3 Status: Chronic Comment: Stable on medical therapy (7) Prostatic hypertrophy Status: Chronic Comment: Noted and on treatment Result Diagram: 08/27/18 1150 08/27/18 1150 Results 24hrs Laboratory Tests Test 08/27/18 11:50 White Blood Count 13.6 H Red Blood Count 3.37 L Hemoglobin 8.8 L Hematocrit 30.5 L Mean Corpuscular Volume 90.5 Mean Corpuscular Hemoglobin 26.1 L Mean Corpuscular Hemoglobin Concent 28.9 L Red Cell Distribution Width 19.9 #H Platelet Count 300 Mean Platelet Volume 9.3 Immature Granulocytes % 1.000 H Neutrophils % 84.4 H Lymphocytes % 4.7 L Monocytes % 5.6 Eosinophils % 3.6 Basophils % 0.7 Nucleated Red Blood Cells % 0.0 Immature Granulocytes # 0.140 H Neutrophils # 11.5 H Lymphocytes # 0.6 L Monocytes # 0.8 Eosinophils # 0.5 Basophils # 0.1 Nucleated Red Blood Cells # 0.0 Prothrombin Time 14.1 Prothrombin Time Ratio 1.1 INR International Normalized Ratio 1.08 Activated Partial Thromboplast Time 36.2 H Sodium Level 141 Potassium Level 4.6 Chloride Level 101 Carbon Dioxide Level 23 Anion Gap 17 H Blood Urea Nitrogen 67 H Creatinine 6.33 H Est Glomerular Filtrat Rate mL/min Glucose Level 87 Calcium Level 8.8 Total Bilirubin 0.1 L Direct Bilirubin 0.00 Indirect Bilirubin 0.1 Aspartate Amino Transf (AST/SGOT) 29 Alanine Aminotransferase (ALT/SGPT) 10 L Alkaline Phosphatase 192 H Troponin I 0.380 *H B-Type Natriuretic Peptide [id number] H Total Protein 6.6 Albumin 3.5 Globulin 3.10 Albumin/Globulin Ratio 1.12 Lipase 89 HPI/ROS Admit Date/Time Admit Date/Time August 27, 2018 Hx of Present Illness This is 1 of several [facility] admissions for this 88-year-old right-handed male. He has a history of end-stage renal disease on dialysis. He had left lower extremity femoral dialysis catheter placed while an AV fistula was maturing and he was at [facility]. Apparently regrettably the temporary dialysis catheter was dislodged today on his dialysis day and he was not able to be dialyzed. Possibility exists that the AV fistula might be usable but because they did not have orders that they could use it was not utilized today. He was sent from the [facility] to the emergency room to be admitted. She reports he is not having any other problems at this time. He has a negative cardiac review of systems, a negative GI review of systems. He has a negative neurologic review of systems. From a respiratory standpoint he does have a persistent cough ROS Constitutional: no complaints (No fevers chills or sweats) Eyes: no complaints Respiratory: cough (Nonproductive) Cardiovascular: no complaints Gastrointestinal: no complaints Genitourinary: no complaints Musculoskeletal: no complaints Skin: no complaints Neurologic: no complaints Endocrine: no complaints PMH/Family/Social Past Medical History Medical History: congestive heart failure (Systolic and diastolic), diabetes, high cholesterol, hypertension, renal disease (Stage renal disease on hemodialysis), other (Hyperuricemia; benign essential tremor; seborrheic keratoses; conjunctivitis; peripheral vascular disease; paroxysmal atrial fibrillation; benign prostatic hypertrophy; reported history of bladder mass; reactive airways disease) Medications Current Medications IV Flush (NS 3 ml) 3 ml PER PROTOCOL IV ; Start 08/27/18 at 13:30; Status UNV Acetaminophen (Tylenol Tab) 650 mg Q6H PRN PO .PAIN 1-3 OR TEMP; Start 08/27/18 at 13:30; Status UNV Acetaminophen/ Hydrocodone Bitart ([place] (5/325)) 1 tab Q6H PRN PO .PAIN 4-6; Start 08/27/18 at 13:30; Status UNV Docusate Sodium (Colace) 100 mg Q12H PRN PO .CONSTIPATION; Start 08/27/18 at 13:30; Status UNV Bisacodyl (Dulcolax) 5 mg DAILY PRN PO .CONSTIPATION; Start 08/27/18 at 13:30; Status UNV Famotidine (Pepcid) 20 mg Q12 PO ; Start 08/27/18 at 21:00; Status UNV Heparin Sodium (Porcine) (Heparin (5000 Units/1ml)) 5,000 unit Q12 SC ; Start 08/27/18 at 21:00; Status UNV Albuterol (Proventil 0.083% (Neb)) 2.5 mg Q6 PRN NEB WHEEZING AND SOB; Start 08/27/18 at 13:30; Status UNV Allopurinol (Zyloprim) 300 mg DAILY PO ; Start 08/28/18 at 09:00; Status UNV Aspirin (Halfprin) 81 mg DAILY PO ; Start 08/28/18 at 09:00; Status UNV Atorvastatin Calcium (Lipitor) 20 mg QHS PO ; Start 08/27/18 at 21:00; Status UNV Celecoxib (Celebrex) 100 mg BID PO ; Start 08/27/18 at 21:00; Status UNV Clopidogrel Bisulfate (plaVIX) 75 mg DAILY PO ; Start 08/28/18 at 09:00; Status UNV Digoxin (Digoxin) 0.0625 mg DAILY PO ; Start 08/28/18 at 09:00; Status UNV Docusate Sodium (Colace) 100 mg BID PO ; Start 08/27/18 at 21:00; Status UNV Isosorbide Mononitrate (Imdur) 120 mg HS PO ; Start 08/27/18 at 21:00; Status UNV Lactulose (Enulose) 20 gm DAILY PRN PO CONSTIPATION; Start 08/27/18 at 13:30; Status UNV Lisinopril (Zestril) 5 mg DAILY PO ; Start 08/28/18 at 09:00; Status UNV Metoclopramide HCl (Reglan) 5 mg AC MEALS AND BEDTIME PO ; Start 08/27/18 at 17:30; Status UNV Metoprolol Tartrate (Lopressor) 25 mg BID PO ; Start 08/27/18 at 21:00; Status UNV Multivit/Ca Carb/ B Cmplx/FA/Prenat (Fany-Jose Luis) 1 tab DAILY PO ; Start 08/28/18 at 09:00; Status UNV Senna (Senokot) 1 tab DAILY PO ; Start 08/28/18 at 09:00; Status UNV Tamsulosin HCl (Flomax) 0.4 mg HS PO ; Start 08/27/18 at 21:00; Status UNV Coded Allergies: Penicillins (Unverified Allergy, Severe, ANAPHYLACTIC, 08/27/18) Past Surgical History Past Surgical Hx: coronary bypass surgery, other Family History Significant Family History: heart disease, hypertension Social History Alcohol Use: none Smoking Status: Never smoker Drug Use: none Exam/Review of Systems Vital Signs Vitals Vital Signs Date Temp Pulse Resp B/P (MAP) Pulse Ox O2 O2 Flow FiO2 Time Delivery Rate 08/27/18 Nasal 4.0 11:56 Cannula 08/27/18 81 19 131/57 98 11:49 (81) 08/27/18 98.7 11:15 Exam Exam Pleasant older male on a gurney in the emergency room Constitutional: alert, oriented Psych: no complaints Head: other (Actinic and seborrheic keratoses) Eyes: nl conjunctiva, EOMI, nl lids, other (Lateral conjunctivitis) ENMT: nl external ears & nose, nl lips & teeth, nl nasal mucosa & septum, mucosa pink and moist Neck: supple, non-tender Respiratory: clear to auscultation, normal air movement Cardiovascular: regular rate and rhythm, nl pulses Gastrointestinal: soft, nl liver, spleen, non-tender Extremities: other (Right upper extremity AV fistula with a palpable thrill) Neurological: CASE ASSEMBLER II-XII intact, nl mental status, nl speech, nl strength RUTH VAZQUEZ MD Aug 27, 2018 13:43
[2018-08-27] MEDS ORDERED: ALBUTEROL 0.083% (NEB) 2.5 MG/3 ML AMP NEB PRN (14:00)
[2018-08-27] MEDS: FLUTICASONE/VILANTEROL 100-25 INH SCH (14:58)
[2018-08-27] MEDS: FINASTERIDE 5 MG TAB PO SCH (14:58)
--- NOTE | 2018-08-27 15:04 | CONS ---
DATE OF ADMISSION: 08/27/2018 DATE OF CONSULTATION: He was in the ER at the time of dictation. Thank you very much for allowing me to evaluate this 88-year-old male admitted to the hospital with s hortness of breath and cough of several days' duration. HISTORICAL EVENTS: As you well know, this patient has chronic renal failure and dialyzes as an outpa tient 3 times per week. More recently, he has been residing at [facility] in hopes of gaining some overall strength. He was transferred from the dialysis facility today when it was noted that his temporary vascular catheter had been dislodged prior to his arrival and it was unc lear whether he is to be dialyzed using his right upper extremity graft. More importantly, the ER's observation revealed him to be in congestive heart failure and/or suffering from possible pneumonitis . Interview with the patient today and his , who was in attendance, indicated that he has been m odestly short of breath for the last week or so. He has had a nonproductive cough, has not been whee zing and denies any chest pain. Appetite has been reduced. He has had no nausea, vomiting or abdomi nal pain. PAST MEDICAL HISTORY: Includes: 1. End-stage renal disease on outpatient hemodialysis. 2. History of urinary retention. 3. History of hypertension. 4. Coronary artery disease, having suffered a non-ST IA in 06/2018. 5. Placement of right upper extremity vascular access that per my discussion with Dr. Flynn is antonino ble to use today. 6. History of paroxysmal atrial fibrillation. 7. Cardiomyopathy. MEDICATIONS: Include: 1. Tylenol p.r.n. 2. Albuterol as needed. 3. Allopurinol 300 mg per day. 4. Aspirin 81 mg per day. 5. Atorvastatin 20 mg per day. 6. Celebrex 100 mg b.i.d. 7. Plavix 75 mg per day. 8. Digoxin 0.0625 mg per day. 9. Docusate 100 mg per day. 10. Famotidine 20 mg per day. 11. Isosorbide 120 mg per day. 12. Lisinopril 5 mg per day. 13. Reglan 5 mg before meals and at bedtime. 14. Metoprolol 25 mg per day. 15. Multi-Jose Luis 1 per day. 16. Flomax 0.4. PHYSICAL EXAMINATION: VITAL SIGNS: BP 131/56 on 10 liters mask, his O2 sat was 98%, respirations were 20. EYES: Extraocular muscles were full. NECK: Revealed jugular venous distention. LUNGS: Rales and some wheezing bilaterally. HEART: Rhythm regular. S3 was noted. I/ systolic murmur. ABDOMEN: Slight distention. No tenderness. EXTREMITIES: A 2 to 3+ sacral edema. NEUROLOGIC: No lateralizing motor weakness. Right upper extremity vascular access was functioning w ith a good thrill. The right arm was swollen. LABORATORY AND DIAGNOSTIC STUDIES: Hematocrit 30.5, white count 13,600, platelet count 300,000. [place] mistries are revealing BUN was 67, creatinine 6.33. BNP was 137,000. Troponin was 0.038. IMPRESSION: 1. Clinical evidence of congestive heart failure and/or accompanying pneumonitis. 2. Chronic renal failure, now requiring dialytic intervention given #1. 3. Known coronary artery disease. 4. General debilitation. PLAN: We will follow with you. Dictated By: JANETH SHEPARD MD MR/NTS Conf#: [id number] DID#: [id number] CC: RITESH DEVRIES MD; MELLO SAUER MD; TERRANCE FLYNN MD;*End*
[2018-08-27] MEDS: TOBRAMYCIN 0.3% 5 ML OPH BOTH EYES SCH ×2 (17:00→23:11)
[2018-08-27] MEDS: METOCLOPRAMIDE 5 MG TAB PO SCH ×2 (17:37→21:08)
[2018-08-27] MEDS: METOPROLOL 25 MG TAB PO SCH (21:00)
[2018-08-27] MEDS: ISOSORBIDE MONONITRATE(SR)60 MG TAB PO SCH (21:00)
[2018-08-27] MEDS: CELECOXIB 100 MG CAP PO SCH (21:08)
[2018-08-27] MEDS: DOCUSATE SODIUM 100 MG CAP PO SCH (21:08)
[2018-08-27] MEDS: FAMOTIDINE 20 MG TAB PO SCH (21:08)
[2018-08-27] MEDS: TAMSULOSIN (SR) 0.4 MG CAP PO SCH (21:08)
[2018-08-27] MEDS: ATORVASTATIN 20 MG TAB PO SCH (21:08)
[2018-08-27] MEDS: HEPARIN 5,000 UNIT/1 ML VIAL SC SCH (21:12)
[2018-08-27] MEDS ORDERED: ALBUMIN HUMAN 25% 100 ML IV STA (22:45)
[2018-08-28] VITALS (21 sets, daily range): BP systolic 111–149; BP diastolic 51–69; PULSE 67–97; RESP 16–24
[2018-08-28] MEDS: METOCLOPRAMIDE 5 MG TAB PO SCH ×4 (06:41→23:39)
[2018-08-28] MEDS: TOBRAMYCIN 0.3% 5 ML OPH BOTH EYES SCH ×4 (09:05→23:38)
[2018-08-28] MEDS: FLUTICASONE/VILANTEROL 100-25 INH SCH (09:05)
[2018-08-28] MEDS: ALLOPURINOL 300 MG TAB PO SCH (09:07)
[2018-08-28] MEDS: CELECOXIB 100 MG CAP PO SCH ×2 (09:07→23:39)
[2018-08-28] MEDS: METOPROLOL 25 MG TAB PO SCH ×2 (09:07→23:40)
[2018-08-28] MEDS: LISINOPRIL 5 MG TAB PO SCH (09:08)
[2018-08-28] MEDS: CLOPIDOGREL 75 MG TAB PO SCH (09:08)
[2018-08-28] MEDS: MULTIVIT/CA CARB/B CMPLX/FA TAB PO SCH (09:08)
[2018-08-28] MEDS: SENNA TAB PO SCH (09:08)
[2018-08-28] MEDS: FINASTERIDE 5 MG TAB PO SCH (09:08)
[2018-08-28] MEDS: ASPIRIN (EC) 81 MG TAB PO SCH (09:08)
[2018-08-28] MEDS: DOCUSATE SODIUM 100 MG CAP PO SCH ×2 (09:08→23:39)
[2018-08-28] MEDS: HEPARIN 5,000 UNIT/1 ML VIAL SC SCH ×2 (09:39→23:45)
--- NOTE | 2018-08-28 10:06 | CONS ---
Assessment/Plan Assessment/Plan Assessment/Plan (Daily) 1. CKD with next hd tomm 2. Still vol overloaded 3. Inc anemia, stool ob ordered, epogen and iv iron ordered, stool ob as well, ???dc celebrex 4. ASHD, without angina 5. General debilitation but will has the will to "go on" Consultation Date/Type/Reason Admit Date/Time Aug 27, 2018 at 12:36 Initial Consult Date Date/Time of Note DATE: 08/28/18 TIME: 10:03 Detailed Summary Respiratory: cough (is less) Cardiovascular: No chest pain, No orthopenea Gastrointestinal: no complaints Genitourinary: no complaints Exam/Review of Systems Exam Vitals Vital Signs Date Temp Pulse Resp B/P (MAP) Pulse Ox O2 O2 Flow FiO2 Time Delivery Rate 08/28/18 98.3 90 24 120/56 87 Nasal 08:19 (77) Cannula 08/28/18 5.0 05:43 Intake and Output 08/27/18 08/27/18 08/28/18 1515:00 23:00 07:00 IntakeIntake Total 100 ml 200 ml OutputOutput Total 2550 ml BalanceBalance 100 ml -2350 ml Neck: No jvd Respiratory: diminished breath sounds (and few whonchi bilat ant) Cardiovascular: regular rate and rhythm Gastrointestinal: soft Extremities: edema (sacral 2+) Results Result Diagram: 08/28/18 0525 08/28/18 0525 Results 24hrs Laboratory Tests Test 08/27/18 11:50 08/27/18 18:15 08/28/18 05:25 White Blood Count 13.6 H 9.3 # Red Blood Count 3.37 L 3.02 L Hemoglobin 8.8 L 7.7 L Hematocrit 30.5 L 26.1 L Mean Corpuscular Volume 90.5 86.4 Mean Corpuscular Hemoglobin 26.1 L 25.5 L Mean Corpuscular Hemoglobin Concent 28.9 L 29.5 L Red Cell Distribution Width 19.9 #H 19.8 H Platelet Count 300 285 Mean Platelet Volume 9.3 9.5 Immature Granulocytes % 1.000 H 0.900 H Neutrophils % 84.4 H 85.6 H Lymphocytes % 4.7 L 4.5 L Monocytes % 5.6 5.1 Eosinophils % 3.6 3.0 Basophils % 0.7 0.9 Nucleated Red Blood Cells % 0.0 0.0 Immature Granulocytes # 0.140 H 0.080 H Neutrophils # 11.5 H 7.9 H Lymphocytes # 0.6 L 0.4 L Monocytes # 0.8 0.5 Eosinophils # 0.5 0.3 Basophils # 0.1 0.1 Nucleated Red Blood Cells # 0.0 0.0 Prothrombin Time 14.1 Prothrombin Time Ratio 1.1 INR International Normalized Ratio 1.08 Activated Partial Thromboplast Time 36.2 H Sodium Level 141 142 Potassium Level 4.6 4.1 Chloride Level 101 98 Carbon Dioxide Level 23 28 Anion Gap 17 H 16 H Blood Urea Nitrogen 67 H 35 #H Creatinine 6.33 H 3.78 #H Est Glomerular Filtrat Rate mL/min Glucose Level 87 104 Calcium Level 8.8 8.8 Total Bilirubin 0.1 L 0.3 Direct Bilirubin 0.00 0.00 Indirect Bilirubin 0.1 0.3 Aspartate Amino Transf (AST/SGOT) 29 23 Alanine Aminotransferase (ALT/SGPT) 10 L 17 Alkaline Phosphatase 192 H 165 H Troponin I 0.380 *H 0.330 *H B-Type Natriuretic Peptide [id number] H Total Protein 6.6 6.2 Albumin 3.5 3.4 Globulin 3.10 2.80 Albumin/Globulin Ratio 1.12 1.21 Lipase 89 Hepatitis B Surface Antigen NEGATIVE Hemoglobin A1c 5.3 Iron Level 26 L Total Iron Binding Capacity 172 L Percent Iron Saturation 15 L Ferritin 727.0 H Thyroid Stimulating Hormone (TSH) 2.450 Medications Medication Current Medications IV Flush (NS 3 ml) 3 ml PER PROTOCOL IV ; Start 08/27/18 at 13:30 Acetaminophen (Tylenol Tab) 650 mg Q6H PRN PO .PAIN 1-3 OR TEMP; Start 08/27/18 at 13:30 Acetaminophen/ Hydrocodone Bitart ([place] (5/325)) 1 tab Q6H PRN PO .PAIN 4-6; Start 08/27/18 at 13:30 Docusate Sodium (Colace) 100 mg Q12H PRN PO .CONSTIPATION; Start 08/27/18 at 13:30 Bisacodyl (Dulcolax) 5 mg DAILY PRN PO .CONSTIPATION; Start 08/27/18 at 13:30 Famotidine (Pepcid) 20 mg Q24H PO Last administered on 08/27/18 21:08; Admin Dose 20 MG; Start 08/27/18 at 21:00 Heparin Sodium (Porcine) (Heparin (5000 Units/1ml)) 5,000 unit Q12 SC Last administered on 08/28/18 09:39; Admin Dose 5,000 UNIT; Start 08/27/18 at 21:00 Albuterol (Proventil 0.083% (Neb)) 2.5 mg Q6HWA RESP THERAPY PRN NEB WHEEZING AND SOB; Start 08/27/18 at 14:00 Allopurinol (Zyloprim) 300 mg DAILY PO Last administered on 08/28/18 09:07; Admin Dose 300 MG; Start 08/28/18 at 09:00 Aspirin (Halfprin) 81 mg DAILY PO Last administered on 08/28/18 09:08; Admin Dose 81 MG; Start 08/28/18 at 09:00 Atorvastatin Calcium (Lipitor) 20 mg QHS PO Last administered on 08/27/18 21:08; Admin Dose 20 MG; Start 08/27/18 at 21:00 Celecoxib (Celebrex) 100 mg BID PO Last administered on 08/28/18 09:07; Admin Dose 100 MG; Start 08/27/18 at 21:00 Clopidogrel Bisulfate (plaVIX) 75 mg DAILY PO Last administered on 08/28/18 09:08; Admin Dose 75 MG; Start 08/28/18 at 09:00 Digoxin (Digoxin) 0.0625 mg DAILY@1300 PO ; Start 08/28/18 at 13:00 Docusate Sodium (Colace) 100 mg BID PO Last administered on 08/28/18 09:08; Admin Dose 100 MG; Start 08/27/18 at 21:00 Isosorbide Mononitrate (Imdur) 120 mg HS PO ; Start 08/27/18 at 21:00 Lactulose (Enulose) 20 gm DAILY PRN PO CONSTIPATION; Start 08/27/18 at 13:30 Lisinopril (Zestril) 5 mg DAILY PO Last administered on 08/28/18 09:08; Admin Dose 5 MG; Start 08/28/18 at 09:00 Metoclopramide HCl (Reglan) 5 mg AC MEALS AND BEDTIME PO Last administered on 08/28/18 06:41; Admin Dose 5 MG; Start 08/27/18 at 17:30 Metoprolol Tartrate (Lopressor) 25 mg BID PO Last administered on 08/28/18 09:07; Admin Dose 25 MG; Start 08/27/18 at 21:00 Multivit/Ca Carb/ B Cmplx/FA/Prenat (Fany-Jose Luis) 1 tab DAILY PO Last administered on 08/28/18 09:08; Admin Dose 1 TAB; Start 08/28/18 at 09:00 Senna (Senokot) 1 tab DAILY PO Last administered on 08/28/18 09:08; Admin Dose 1 TAB; Start 08/28/18 at 09:00 Tamsulosin HCl (Flomax) 0.4 mg HS PO Last administered on 08/27/18 21:08; Admin Dose 0.4 MG; Start 08/27/18 at 21:00 Tobramycin Sulfate (Tobrex 0.3% Oph Drop) 2 drop QID BOTH EYES Last administered on 08/28/18 09:05; Admin Dose 2 DROP; Start 08/27/18 at 17:00; Stop 09/03/18 at 16:59 Finasteride (Proscar) 5 mg DAILY PO Last administered on 08/28/18 09:08; Admin Dose 5 MG; Start 08/27/18 at 14:00 Fluticasone/ Vilanterol (Breo Ellipta 100-25 Mcg Inh) 1 inh DAILY INH Last administered on 08/28/18 09:05; Admin Dose 1 INH; Start 08/27/18 at 14:00 JANETH SHEPARD MD Aug 28, 2018 10:06
[2018-08-28] MEDS: DIGOXIN 0.125 MG TAB PO SCH (12:23)
[2018-08-28] MEDS: SOD FERRIC GLUC COMPLX 125 MG in SOD CHLORIDE 0.9% 100 ML IVPB SCH (13:08)
--- NOTE | 2018-08-28 14:52 | PN ---
Date/Time of Note Date/Time of Note DATE: 08/28/18 TIME: 14:48 Assessment/Plan VTE Prophylaxis Risk score (from Ns)>0 risk: 5 SCD applied (from [facility] No SCD contraindicated: patient refusal Pharmacological prophylaxis: heparin Lines/Catheters IV Catheter Type (from [facility]): [place] Urinary Cath still in place: No Assessment/Plan Result Diagram: 08/28/18 0525 08/28/18 0525 Results 24hrs Laboratory Tests Test 08/27/18 18:15 08/28/18 05:25 Troponin I 0.330 *H Hepatitis B Surface Antigen NEGATIVE White Blood Count 9.3 # Red Blood Count 3.02 L Hemoglobin 7.7 L Hematocrit 26.1 L Mean Corpuscular Volume 86.4 Mean Corpuscular Hemoglobin 25.5 L Mean Corpuscular Hemoglobin Concent 29.5 L Red Cell Distribution Width 19.8 H Platelet Count 285 Mean Platelet Volume 9.5 Immature Granulocytes % 0.900 H Neutrophils % 85.6 H Lymphocytes % 4.5 L Monocytes % 5.1 Eosinophils % 3.0 Basophils % 0.9 Nucleated Red Blood Cells % 0.0 Immature Granulocytes # 0.080 H Neutrophils # 7.9 H Lymphocytes # 0.4 L Monocytes # 0.5 Eosinophils # 0.3 Basophils # 0.1 Nucleated Red Blood Cells # 0.0 Sodium Level 142 Potassium Level 4.1 Chloride Level 98 Carbon Dioxide Level 28 Anion Gap 16 H Blood Urea Nitrogen 35 #H Creatinine 3.78 #H Est Glomerular Filtrat Rate mL/min Glucose Level 104 Hemoglobin A1c 5.3 Calcium Level 8.8 Iron Level 26 L Total Iron Binding Capacity 172 L Percent Iron Saturation 15 L Ferritin 727.0 H Total Bilirubin 0.3 Direct Bilirubin 0.00 Indirect Bilirubin 0.3 Aspartate Amino Transf (AST/SGOT) 23 Alanine Aminotransferase (ALT/SGPT) 17 Alkaline Phosphatase 165 H Total Protein 6.2 Albumin 3.4 Globulin 2.80 Albumin/Globulin Ratio 1.21 Thyroid Stimulating Hormone (TSH) 2.450 Subjective 24 Hr Interval Summary Free Text/Dictation medicine well known to me. unable to access temporary dyalisis ct yesterday, so sent here. in fact can use the recently placed shunt in the . he is feeling ok, has mild chr pulm congestion. the main problem is the lower extg weakness and knee pain. he is currently non ambulatory. getting iv iron now, got hd last pm plan: hd in am and the can transfer back to [facility] alert fluent lungs sound clear, hr ok, abd soft, no edema Neurologic: other (leg weakness) Exam/Review of Systems Exam Vitals Vital Signs Date Temp Pulse Resp B/P (MAP) Pulse Ox O2 O2 Flow FiO2 Time Delivery Rate 08/28/18 77 12:00 08/28/18 98.1 20 121/59 93 Nasal 11:01 (79) Cannula 08/28/18 5.0 08:10 Intake and Output 08/27/18 08/27/18 08/28/18 1414:59 22:59 06:59 IntakeIntake Total 100 ml OutputOutput Total 2500 ml BalanceBalance 100 ml -2500 ml Results Results 24hrs Laboratory Tests Test 08/27/18 18:15 08/28/18 05:25 Troponin I 0.330 *H Hepatitis B Surface Antigen NEGATIVE White Blood Count 9.3 # Red Blood Count 3.02 L Hemoglobin 7.7 L Hematocrit 26.1 L Mean Corpuscular Volume 86.4 Mean Corpuscular Hemoglobin 25.5 L Mean Corpuscular Hemoglobin Concent 29.5 L Red Cell Distribution Width 19.8 H Platelet Count 285 Mean Platelet Volume 9.5 Immature Granulocytes % 0.900 H Neutrophils % 85.6 H Lymphocytes % 4.5 L Monocytes % 5.1 Eosinophils % 3.0 Basophils % 0.9 Nucleated Red Blood Cells % 0.0 Immature Granulocytes # 0.080 H Neutrophils # 7.9 H Lymphocytes # 0.4 L Monocytes # 0.5 Eosinophils # 0.3 Basophils # 0.1 Nucleated Red Blood Cells # 0.0 Sodium Level 142 Potassium Level 4.1 Chloride Level 98 Carbon Dioxide Level 28 Anion Gap 16 H Blood Urea Nitrogen 35 #H Creatinine 3.78 #H Est Glomerular Filtrat Rate mL/min Glucose Level 104 Hemoglobin A1c 5.3 Calcium Level 8.8 Iron Level 26 L Total Iron Binding Capacity 172 L Percent Iron Saturation 15 L Ferritin 727.0 H Total Bilirubin 0.3 Direct Bilirubin 0.00 Indirect Bilirubin 0.3 Aspartate Amino Transf (AST/SGOT) 23 Alanine Aminotransferase (ALT/SGPT) 17 Alkaline Phosphatase 165 H Total Protein 6.2 Albumin 3.4 Globulin 2.80 Albumin/Globulin Ratio 1.21 Thyroid Stimulating Hormone (TSH) 2.450 Medications Medication Current Medications IV Flush (NS 3 ml) 3 ml PER PROTOCOL IV ; Start 08/27/18 at 13:30 Acetaminophen (Tylenol Tab) 650 mg Q6H PRN PO .PAIN 1-3 OR TEMP; Start 08/27/18 at 13:30 Acetaminophen/ Hydrocodone Bitart ([place] (5/325)) 1 tab Q6H PRN PO .PAIN 4-6; Start 08/27/18 at 13:30 Docusate Sodium (Colace) 100 mg Q12H PRN PO .CONSTIPATION; Start 08/27/18 at 13:30 Bisacodyl (Dulcolax) 5 mg DAILY PRN PO .CONSTIPATION; Start 08/27/18 at 13:30 Famotidine (Pepcid) 20 mg Q24H PO Last administered on 08/27/18at 21:08; Admin Dose 20 MG; Start 08/27/18 at 21:00 Heparin Sodium (Porcine) (Heparin (5000 Units/1ml)) 5,000 unit Q12 SC Last a dministered on 08/28/18at 09:39; Admin Dose 5,000 UNIT; Start 08/27/18 at 21:00 Albuterol (Proventil 0.083% (Neb)) 2.5 mg Q6HWA RESP THERAPY PRN NEB WHEEZING AND SOB; Start 08/27/18 at 14:00 Allopurinol (Zyloprim) 300 mg DAILY PO Last administered on 08/28/18 09:07; Admin Dose 300 MG; Start 08/28/18 at 09:00 Aspirin (Halfprin) 81 mg DAILY PO Last administered on 08/28/18 09:08; Admin Dose 81 MG; Start 08/28/18 at 09:00 Atorvastatin Calcium (Lipitor) 20 mg QHS PO Last administered on 08/27/18 21:08; Admin Dose 20 MG; Start 08/27/18 at 21:00 Celecoxib (Celebrex) 100 mg BID PO Last administered on 08/28/18 09:07; Admin Dose 100 MG; Start 08/27/18 at 21:00 Clopidogrel Bisulfate (plaVIX) 75 mg DAILY PO Last administered on 08/28/18at 09:08; Admin Dose 75 MG; Start 08/28/18 at 09:00 Digoxin (Digoxin) 0.0625 mg DAILY@1300 PO Last administered on 08/28/18 12:23; Admin Dose 0.0625 MG; Start 08/28/18 at 13:00 Docusate Sodium (Colace) 100 mg BID PO Last administered on 08/28/18 09:08; Admin Dose 100 MG; Start 08/27/18 at 21:00 Isosorbide Mononitrate (Imdur) 120 mg HS PO ; Start 08/27/18 at 21:00 Lactulose (Enulose) 20 gm DAILY PRN PO CONSTIPATION; Start 08/27/18 at 13:30 Lisinopril (Zestril) 5 mg DAILY PO Last administered on 08/28/18 09:08; Admin Dose 5 MG; Start 08/28/18 at 09:00 Metoclopramide HCl (Reglan) 5 mg AC MEALS AND BEDTIME PO Last administered on 08/28/18 12:23; Admin Dose 5 MG; Start 08/27/18 at 17:30 Metoprolol Tartrate (Lopressor) 25 mg BID PO Last administered on 08/28/18 09:07; Admin Dose 25 MG; Start 08/27/18 at 21:00 Multivit/Ca Carb/ B Cmplx/FA/Prenat (Fany-Jose Luis) 1 tab DAILY PO Last administered on 08/28/18 09:08; Admin Dose 1 TAB; Start 08/28/18 at 09:00 Senna (Senokot) 1 tab DAILY PO Last administered on 08/28/18 09:08; Admin Dose 1 TAB; Start 08/28/18 at 09:00 Tamsulosin HCl (Flomax) 0.4 mg HS PO Last administered on 08/27/18 21:08; Admin Dose 0.4 MG; Start 08/27/18 at 21:00 Tobramycin Sulfate (Tobrex 0.3% Oph Drop) 2 drop QID BOTH EYES Last administered on 08/28/18 12:24; Admin Dose 2 DROP; Start 08/27/18 at 17:00; Stop 09/03/18 at 16:59 Finasteride (Proscar) 5 mg DAILY PO Last administered on 08/28/18 09:08; Admin Dose 5 MG; Start 08/27/18 at 14:00 Fluticasone/ Vilanterol (Breo Ellipta 100-25 Mcg Inh) 1 inh DAILY INH Last administered on 08/28/18at 09:05; Admin Dose 1 INH; Start 08/27/18 at 14:00 Epoetin Calos (Epogen (Esrd)) 10,000 units MoWeFr@17 SC ; Start 08/28/18 at 17:00 Ferric Sodium Gluconate Complex 125 mg/Sodium Chloride 100 ml @ 100 mls/hr DAILY@1300 IVPB Last administered on 08/28/18at 13:08; Admin Dose 100 MLS/HR; Start 08/28/18 at 13:00; Stop 08/30/18 at 13:59 MELLO SAUER MD Aug 28, 2018 14:52
[2018-08-28] MEDS ORDERED: EPOETIN 10000 UNITS/1 ML INJ (ESRD) SC SCH (17:00)
--- NOTE | 2018-08-28 17:07 | CONS ---
DATE OF ADMISSION: 08/27/2018 DATE OF CONSULTATION: 08/28/2018 TYPE OF CONSULTATION: Vascular. REFERRING PHYSICIAN: Janeth Shepard MD REASON FOR CONSULTATION: Evaluate right arm AV fistula. HISTORY OF PRESENT ILLNESS: This is a very pleasant 88-year-old diabetic hypertensive gentleman with end-stage renal disease, has been on dialysis for several years. He has had multiple access problem s. He got a left arm AV fistula that occluded about 3 or 4 months ago. He had a femoral PermCath an d I made a new right arm AV graft about 3 weeks ago. The central veins were all occluded. Other opt ion is very poor. I created the right arm AV graft. It has got a good thrill and is actually workin g. Dr. Shepard called me yesterday. His PermCath had fallen out and he was brought into the hospital with weakness and shortness of breath. They used the AV graft yesterday. He still has some moderat e amount of edema in the arm, but it is not hurting him and the graft is working well. He is feeling better now. He basically just wants to go home. He keeps asking me if I can dismiss him, but other [place] he has no specific complaints. His breathing is better. PAST MEDICAL HISTORY: Significant for end-stage renal disease on hemodialysis. He has hypertension, coronary artery disease. He had non-STEMI in the past. He was here in the hospital in 05/2018 and 06/2018. He was critically ill. I was not sure if he is going to survive, but he did. He has AFib. He has cardiomyopathy. MEDICATIONS: Consist of: 1. Tylenol. 2. Albuterol. 3. Allopurinol. 4. Aspirin. 5. Atorvastatin. 6. Celebrex. 7. Plavix. 8. Digoxin. 9. Docusate. 10. Famotidine. 11. Isosorbide. 12. Lisinopril. 13. Reglan. 14. Metoprolol. 15. Multivitamin. 16. Flomax. ALLERGIES: HE HAS NO KNOWN DRUG ALLERGIES. SOCIAL HISTORY: He is nonsmoker. He does not drink or use any illicit drugs. He has been at [facility] since he had this septic event back in 05/2018 and recovering with rehab essentially. REVIEW OF SYSTEMS: Currently denies any chest pain, shortness of breath, nausea, vomiting, diarrhea. No fever, no chills, no recent weight gain or weight loss. The right arm is swollen, but it is act ually better than when I last saw him. He says it is not hurting him at all. PHYSICAL EXAMINATION GENERAL: He is an elderly gentleman. VITAL SIGNS: He has been afebrile. His blood pressure is 121/59, heart rate 80, respiratory rate is 20. He is 93% sat on room air. LUNGS: Clear. HEART: Regular rate and rhythm. EXTREMITIES: Left arm AV grafts and fistulas are all occluded. He has no edema in the left arm and right arm. He has upper arm AV graft that has a very good thrill. The incisions are healed nicely. There is a little bit scab over the incisions, but it is essentially healed. The edema is moderate. It mostly lowered down in the arm where it is dependent. It is actually about half the size than w hen I saw him a few weeks ago. He has no more swelling in the hand or forearm. It is really just in the upper arm so most of this is likely just postsurgical. Again, the graft worked well last night when they dialyzed him and then there is an excellent thrill. No bruising or any signs of infection. IMPRESSION: Right arm arteriovenous graft. It is patent with good flow. He has some moderate amoun t of edema, but it has actually dramatically improved over the last several weeks. I would recommend just keeping it elevated and placing an Joni wrap, but it is okay to use. His other access options a re poor. The femoral PermCath is out to place a new one and his upper extremity veins are all occluded. He looks like he is improved. He is okay for transfer back to the [facility] from my standpoint. I will follow him up in the office in a few weeks. Dictated By: TERRANCE ORDONEZ/DARLENE Conf#: [id number] DID#: [id number] CC: JANETH SHEPARD MD; RITESH DEVRIES MD; RUTH VAZQUEZ MD; MELLO SAUER MD; DEMARCUS ROSS MD;*[facility]*
[2018-08-28] MEDS: ATORVASTATIN 20 MG TAB PO SCH (23:38)
[2018-08-28] MEDS: TAMSULOSIN (SR) 0.4 MG CAP PO SCH (23:39)
[2018-08-28] MEDS: ISOSORBIDE MONONITRATE(SR)60 MG TAB PO SCH ×2 (23:39→23:50)
[2018-08-28] MEDS: FAMOTIDINE 20 MG TAB PO SCH ×2 (23:39→23:50)
[2018-08-29] VITALS (24 sets, daily range): BP systolic 88–177; BP diastolic 54–74; PULSE 64–80; RESP 18–20
[2018-08-29] MEDS: METOCLOPRAMIDE 5 MG TAB PO SCH ×2 (06:24→13:51)
[2018-08-29] MEDS ORDERED: VANCOMYCIN 1 GM (PMX) 250 ML IVPB SCH (07:30)
[2018-08-29] MEDS: ASPIRIN (EC) 81 MG TAB PO SCH (09:00)
[2018-08-29] MEDS: METOPROLOL 25 MG TAB PO SCH (09:00)
[2018-08-29] MEDS: ALLOPURINOL 300 MG TAB PO SCH (09:00)
[2018-08-29] MEDS: CLOPIDOGREL 75 MG TAB PO SCH (09:00)
[2018-08-29] MEDS: FINASTERIDE 5 MG TAB PO SCH (09:00)
[2018-08-29] MEDS: MULTIVIT/CA CARB/B CMPLX/FA TAB PO SCH (09:00)
[2018-08-29] MEDS: SENNA TAB PO SCH (09:00)
[2018-08-29] MEDS: LISINOPRIL 5 MG TAB PO SCH (09:00)
[2018-08-29] MEDS: DOCUSATE SODIUM 100 MG CAP PO SCH (09:00)
[2018-08-29] MEDS: CELECOXIB 100 MG CAP PO SCH (09:00)
[2018-08-29] MEDS: TOBRAMYCIN 0.3% 5 ML OPH BOTH EYES SCH ×2 (09:47→13:57)
[2018-08-29] MEDS: FLUTICASONE/VILANTEROL 100-25 INH SCH (09:47)
[2018-08-29] MEDS ORDERED: ALBUMIN HUMAN 25% 100 ML IV PRN (10:00)
--- NOTE | 2018-08-29 10:45 | CONS ---
Assessment/Plan Assessment/Plan Assessment/Plan (Daily) 1. CKD, now being dialyzed 2. Mild erythema noted mary graft, will give vanco 3. Vol overload-chf much improved 4. Can transfer to [facility] if ok wtih IM Consultation Date/Type/Reason Admit Date/Time Aug 27, 2018 at 12:36 Initial Consult Date Date/Time of Note DATE: 08/29/18 TIME: 10:43 Detailed Summary Respiratory: cough (unchanged and not productive) Cardiovascular: No chest pain Gastrointestinal: no complaints Genitourinary: no complaints Exam/Review of Systems Exam Vitals Vital Signs Date Temp Pulse Resp B/P (MAP) Pulse Ox O2 O2 Flow FiO2 Time Delivery Rate 08/29/18 Nasal 5.0 09:40 Cannula 08/29/18 73 08:00 08/29/18 98.2 18 120/69 96 07:36 (86) Intake and Output 08/28/18 08/28/18 08/29/18 1515:00 23:00 07:00 IntakeIntake Total 100 ml 720 ml 50 ml BalanceBalance 100 ml 720 ml 50 ml Neck: No jvd Respiratory: clear to auscultation, diminished breath sounds Cardiovascular: regular rate and rhythm Gastrointestinal: soft Extremities: No edema (leg or sacral) Results Result Diagram: 08/29/18 0837 08/28/18 0525 Results 24hrs Laboratory Tests Test 08/29/18 08:37 White Blood Count 10.9 H Red Blood Count 3.56 L Hemoglobin 9.1 L Hematocrit 30.7 L Mean Corpuscular Volume 86.2 Mean Corpuscular Hemoglobin 25.6 L Mean Corpuscular Hemoglobin Concent 29.6 L Red Cell Distribution Width 19.8 H Platelet Count 338 Mean Platelet Volume 9.8 Immature Granulocytes % 1.000 H Neutrophils % 81.2 H Lymphocytes % 6.4 L Monocytes % 6.1 Eosinophils % 4.3 Basophils % 1.0 Nucleated Red Blood Cells % 0.0 Immature Granulocytes # 0.110 H Neutrophils # 8.8 H Lymphocytes # 0.7 L Monocytes # 0.7 Eosinophils # 0.5 Basophils # 0.1 Nucleated Red Blood Cells # 0.0 Medications Medication Current Medications IV Flush (NS 3 ml) 3 ml PER PROTOCOL IV ; Start 08/27/18 at 13:30 Acetaminophen (Tylenol Tab) 650 mg Q6H PRN PO .PAIN 1-3 OR TEMP; Start 08/27/18 at 13:30 Acetaminophen/ Hydrocodone Bitart ([place] (5/325)) 1 tab Q6H PRN PO .PAIN 4-6; Start 08/27/18 at 13:30 Docusate Sodium (Colace) 100 mg Q12H PRN PO .CONSTIPATION; Start 08/27/18 at 13:30 Bisacodyl (Dulcolax) 5 mg DAILY PRN PO .CONSTIPATION; Start 08/27/18 at 13:30 Famotidine (Pepcid) 20 mg Q24H PO Last administered on 08/28/18 23:39; Admin Dose 20 MG; Start 08/27/18 at 21:00 Heparin Sodium (Porcine) (Heparin (5000 Units/1ml)) 5,000 unit Q12 SC Last administered on 08/28/18 23:45; Admin Dose 5,000 UNIT; Start 08/27/18 at 21:00 Albuterol (Proventil 0.083% (Neb)) 2.5 mg Q6HWA RESP THERAPY PRN NEB WHEEZING AND SOB; Start 08/27/18 at 14:00 Allopurinol (Zyloprim) 300 mg DAILY PO Last administered on 08/28/18 09:07; Admin Dose 300 MG; Start 08/28/18 at 09:00 Aspirin (Halfprin) 81 mg DAILY PO Last administered on 08/28/18 09:08; Admin Dose 81 MG; Start 08/28/18 at 09:00 Atorvastatin Calcium (Lipitor) 20 mg QHS PO Last administered on 08/28/18 23:38; Admin Dose 20 MG; Start 08/27/18 at 21:00 Celecoxib (Celebrex) 100 mg BID PO Last administered on 08/28/18 23:39; Admin Dose 100 MG; Start 08/27/18 at 21:00 Clopidogrel Bisulfate (plaVIX) 75 mg DAILY PO Last administered on 08/28/18 09:08; Admin Dose 75 MG; Start 08/28/18 at 09:00 Digoxin (Digoxin) 0.0625 mg DAILY@1300 PO Last administered on 08/28/18at 12:23; Admin Dose 0.0625 MG; Start 08/28/18 at 13:00 Docusate Sodium (Colace) 100 mg BID PO Last administered on 08/28/18 23:39; Admin Dose 100 MG; Start 08/27/18 at 21:00 Isosorbide Mononitrate (Imdur) 120 mg HS PO Last administered on 08/28/18 23:39; Admin Dose 120 MG; Start 08/27/18 at 21:00 Lactulose (Enulose) 20 gm DAILY PRN PO CONSTIPATION; Start 08/27/18 at 13:30 Lisinopril (Zestril) 5 mg DAILY PO Last administered on 08/28/18 09:08; Admin Dose 5 MG; Start 08/28/18 at 09:00 Metoclopramide HCl (Reglan) 5 mg AC MEALS AND BEDTIME PO Last administered on 08/29/18 06:24; Admin Dose 5 MG; Start 08/27/18 at 17:30 Metoprolol Tartrate (Lopressor) 25 mg BID PO Last administered on 08/28/18 23:40; Admin Dose 25 MG; Start 08/27/18 at 21:00 Multivit/Ca Carb/ B Cmplx/FA/Prenat (Fany-Jose Luis) 1 tab DAILY PO Last administered on 08/28/18 09:08; Admin Dose 1 TAB; Start 08/28/18 at 09:00 Senna (Senokot) 1 tab DAILY PO Last administered on 08/28/18 09:08; Admin Dose 1 TAB; Start 08/28/18 at 09:00 Tamsulosin HCl (Flomax) 0.4 mg HS PO Last administered on 08/28/18 23:39; Admin Dose 0.4 MG; Start 08/27/18 at 21:00 Tobramycin Sulfate (Tobrex 0.3% Oph Drop) 2 drop QID BOTH EYES Last adminis tered on 08/29/18 09:47; Admin Dose 2 DROP; Start 08/27/18 at 17:00; Stop 09/03/18 at 16:59 Finasteride (Proscar) 5 mg DAILY PO Last administered on 08/28/18 09:08; Admin Dose 5 MG; Start 08/27/18 at 14:00 Fluticasone/ Vilanterol (Breo Ellipta 100-25 Mcg Inh) 1 inh DAILY INH Last administered on 08/29/18 09:47; Admin Dose 1 INH; Start 08/27/18 at 14:00 Epoetin Calos (Epogen (Esrd)) 10,000 units MoWeFr@17 SC Last administered on 08/28/18at 18:02; Admin Dose 10,000 UNITS; Start 08/28/18 at 17:00 Ferric Sodium Gluconate Complex 125 mg/Sodium Chloride 100 ml @ 100 mls/hr DAILY@1300 IVPB Last administered on 08/28/18at 13:08; Admin Dose 100 MLS/HR; Start 08/28/18 at 13:00; Stop 08/30/18 at 13:59 Vancomycin HCl 250 ml @ 125 mls/hr AFTER DIALYSIS IVPB ; Start 08/29/18 at 07:30; Stop 08/29/18 at 23:59 Albumin Human 100 ml @ 100 mls/hr WITH DIALYSIS PRN IV SBP <90 DURING DIALYSIS; Start 08/29/18 at 10:00 JANETH SHEPARD MD Aug 29, 2018 10:45
[2018-08-29] MEDS ORDERED: VANCOMYCIN 1 GM (PMX) 250 ML IVPB ONE (11:00)
--- NOTE | 2018-08-29 13:58 | DS ---
Date/Time of Note Date/Time of Note DATE: 08/29/18 TIME: 13:55 Discharge Summary Admission/Discharge Info Admit Date/Time Aug 27, 2018 at 12:36 Discharge Date/Time August 29, 2018 Discharge Diagnosis ESRDz on CHD TIW;HTN; Hyperlipidemia Patient Condition: Fair Consults Nephrology-Dr. Shepard Procedures Hemodialysis Hx of Present Illness This is 1 of several [facility] admissions for this 88-year-old right-handed male. He has a history of end-stage renal disease on dialysis. He had left lower extremity femoral dialysis catheter placed while an AV fistula was maturing and he was at [facility]. Apparently regrettably the temporary dialysis catheter was dislodged today on his dialysis day and he was not able to be dialyzed. Possibility exists that the AV fistula might be usable but because they did not have orders that they could use it was not utilized today. He was sent from the [facility] to the emergency room to be admitted. He reports he is not having any other problems at this time. He has a negative cardiac review of systems, a negative GI review of systems. He has a negative neurologic review of systems. From a respiratory standpoint he does have a persistent cough Hospital Course Patient was brought in and cleared for Hemodialysis and dialyzed.He is stable for discharge Home Meds Reported Medications Docusate Sodium* (Colace*) 100 Mg Capsule, 100 MG PO BID, #60 CAP 08/27/18 Albuterol Sulfate* (Albuterol Sulfate* Neb) 0.083%-3 Ml Neb, 2.5 MG NEB Q6 PRN for WHEEZING AND SOB, #30 VIAL 08/27/18 Multivit/Ca Carb/B Cmplx/Fa* (Fany-Jose Luis*) 1 Tab Tab, 1 TAB PO DAILY, TAB 08/27/18 Tamsulosin Hcl* (Tamsulosin Hcl*) 0.4 Mg Cap.er.24h, 0.4 MG PO HS, CAP 08/02/18 Sennosides* (Senna Lax*) 8.6 Mg Tablet, 1 TAB PO DAILY, TAB 08/02/18 Metoclopramide* (Reglan*) 5 Mg Tablet, 5 MG PO AC MEALS AND BEDTIME, TAB 08/02/18 Lisinopril* (Lisinopril*) 5 Mg Tablet, 5 MG PO DAILY, #30 TAB 08/02/18 Lactulose* (Lactulose*) 20 Gm/30 Ml Solution, 20 GM PO DAILY PRN for CONSTIPATION, ML 08/02/18 Isosorbide Mononitrate* (Isosorbide Mononitrate*) 120 Mg Tab.sr.24h, 120 MG PO HS, TAB.SA 08/02/18 Furosemide* (Furosemide*) 40 Mg Tablet, 40 MG PO DAILY, TAB 08/02/18 Famotidine* (Famotidine*) 20 Mg Tablet, 20 MG PO DAILY, #30 TAB 08/02/18 Celecoxib* (Celebrex*) 100 Mg Capsule, 100 MG PO BID, CAP 08/02/18 Aspirin* (Aspirin* EC) 81 Mg Tablet.dr, 81 MG PO DAILY, TAB 08/02/18 Acetaminophen* (Acetaminophen*) 500 MG Extra Strength Tablet, 500 MG PO Q4H PRN for PAIN AND OR ELEVATED TEMP, TAB 06/06/18 Metoprolol Tartrate* (Lopressor*) 25 Mg Tablet, 25 MG PO BID, #60 TAB 06/06/18 Atorvastatin Calcium* (Atorvastatin Calcium*) 20 Mg Tablet, 20 MG PO QHS, #30 TAB 06/06/18 Clopidogrel Bisulfate (Clopidogrel) 75 Mg Tablet, 75 MG PO DAILY, #30 TAB 06/06/18 Allopurinol* (Allopurinol*) 300 Mg Tablet, 300 MG PO DAILY, TAB 06/06/18 Digoxin* (Digox*) 125 Mcg Tablet, 0.0625 MG PO DAILY, TAB 06/06/18 Discontinued Reported Medications Lidocaine (Lidoderm) 1 Each Adh..patch, 1 EACH TP DAILY 08/02/18 Lorazepam* (Lorazepam*) 0.5 Mg Tablet, 0.5 MG PO Q8 PRN for ANXIETY, TAB 08/02/18 Acetaminophen* (Acetaminophen*) 500 MG Extra Strength Tablet, 500 MG PO Q4H PRN for PAIN AND OR ELEVATED TEMP, TAB 08/02/18 Diphenhydramine Hcl* (Benadryl*) 25 Mg Cap, 25 MG PO QHS PRN for ITCHING, CAP 06/06/18 Primary Care Provider Jagdeep Panda MD Pending Labs Laboratory Tests Test 08/29/18 08:37 White Blood Count 10.9 10^3/ul (4.8-10.8) Red Blood Count 3.56 10^6/ul (4.70-6.10) Hemoglobin 9.1 g/dl (14.0-18.0) Hematocrit 30.7 % (42.0-52.0) Mean Corpuscular Volume 86.2 fl (82.0-101.0) Mean Corpuscular Hemoglobin 25.6 pg (29.0-33.0) Mean Corpuscular Hemoglobin Concent 29.6 g/dl (32.0-37.0) Red Cell Distribution Width 19.8 % (11.5-14.5) Platelet Count 338 10^3/UL (140-415) Mean Platelet Volume 9.8 fl (7.4-10.4) Immature Granulocytes % 1.000 % (0.001-0.429) Neutrophils % 81.2 % (39.0-77.0) Lymphocytes % 6.4 % (15.0-51.0) Monocytes % 6.1 % (0.0-11.0) Eosinophils % 4.3 % (0.0-7.0) Basophils % 1.0 % (0.0-2.0) Nucleated Red Blood Cells % 0.0 /100WBC (0.0-0.0) Immature Granulocytes # 0.110 10^3/ul (0.0-0.031) Neutrophils # 8.8 10^3/ul (1.6-7.5) Lymphocytes # 0.7 10^3/ul (0.8-2.9) Monocytes # 0.7 10^3/ul (0.3-0.9) Eosinophils # 0.5 10^3/ul (0.0-0.5) Basophils # 0.1 10^3/ul (0.0-0.1) Nucleated Red Blood Cells # 0.0 10^3/ul (0.0-0.0) Sodium Level 140 mmol/L (135-144) Potassium Level 4.7 mmol/L (3.5-5.1) Chloride Level 99 mmol/L (97-110) Carbon Dioxide Level 25 mmol/L (21-31) Anion Gap 16 (5-13) Blood Urea Nitrogen 53 mg/dl (7-20) Creatinine 5.11 mg/dl (0.61-1.24) Est Glomerular Filtrat Rate mL/min mL/min (>60) Glucose Level 74 mg/dl (70-220) Calcium Level 9.1 mg/dl (8.4-10.2) Phosphorus Level 7.1 mg/dl (2.5-4.9) Copies To: CC: BENITO PEREZ MD; JANETH SHEPARD MD ; RUTH VAZQUEZ MD Aug 29, 2018 13:58
[2018-08-29] MEDS: DIGOXIN 0.125 MG TAB PO SCH (14:01)
[2018-08-29] MEDS: HEPARIN 5,000 UNIT/1 ML VIAL SC SCH (14:11)
[2018-08-29] MEDS: SOD FERRIC GLUC COMPLX 125 MG in SOD CHLORIDE 0.9% 100 ML IVPB SCH (16:11)
== END 2018-08-29 18:05 | DRG 314 ==
LOC: E/R 10:42 → 6WM 12:36
PROVIDERS: ADMIT Internal Medicine; ATTEND Internal Medicine
PROC: 5A1D70Z Performance of Urinary Filtration, Intermittent, Less than 6 Hours Per Day (ICD-10-PCS; 2018-08-27)
PROC: 5A1D70Z Performance of Urinary Filtration, Intermittent, Less than 6 Hours Per Day (ICD-10-PCS; principal; 2018-08-28)
DX: T82.42XA Displacement of vascular dialysis catheter, initial encounter (principal); N18.6 End stage renal disease; J45.41 Moderate persistent asthma with (acute) exacerbation; I42.9 Cardiomyopathy, unspecified; I50.22 Chronic systolic (congestive) heart failure; I48.0 Paroxysmal atrial fibrillation; I11.0 Hypertensive heart disease with heart failure; D63.1 Anemia in chronic kidney disease; B30.9 Viral conjunctivitis, unspecified; I25.10 Atherosclerotic heart disease of native coronary artery without angina pectoris; E78.5 Hyperlipidemia, unspecified; N40.0 Benign prostatic hyperplasia without lower urinary tract symptoms; Y83.2 Surgical operation with anastomosis, bypass or graft as the cause of abnormal reaction of the patient, or of later complication, without mention of misadventure at the time of the procedure; Y92.129 Unspecified place in nursing home as the place of occurrence of the external cause; I25.2 Old myocardial infarction; Z99.2 Dependence on renal dialysis; Z79.82 Long term (current) use of aspirin
CPT/HCPCS: 36415; 71045; 80048; 80053; 82728; 83036; 83540; 83690; 83880; 84100; 84443; 84484; 85025; 85610; 85730; 87040; 87340; 87400; 90935; 93005; 94644; 96360; 97162; 97167; J1644; J2916; J3370; J7040; P9047; Q4081

== ENCOUNTER 2018-09-17 09:08 | Inpatient (IN) | payer MEDICARE, BC ==
[~2018-09-17] VITALS: Ht 170.2 cm; Wt 79.3 kg
[2018-09-17] VITALS (17 sets, daily range): BP systolic 96–147; BP diastolic 48–93; PULSE 74–82; RESP 18–20; Ht 170.2 cm; Wt 79.3 kg
[~2018-09-17 09:08] MED LIST changes: +ALBU2.5V3 NEB; -BEN25 PO; +DOCU-144 PO; -LIDO700A29 TP; -LORA0.5T PO; +NEPH PO
[2018-09-17] MEDS ORDERED: ALBUTEROL 0.5% (NEB) 2.5 MG/0.5 ML AMP INH STA (09:22)
[2018-09-17] MEDS ORDERED: CEFEPIME 1GM/50 ML (PMX) 50 ML IVPB STA (09:22)
[2018-09-17] MEDS ORDERED: VANCOMYCIN 1 GM (PMX) 250 ML IVPB STA (09:22)
[2018-09-17] MEDS ORDERED: IPRATROPIUM (NEB) 0.5 MG/2.5 ML AMP INH STA (09:22)
[2018-09-17] MEDS ORDERED: NITR0.4T32 SL (10:49)
[2018-09-17] MEDS ORDERED: ISOS120T15 PO (10:51)
[2018-09-17] MEDS ORDERED: DIGO125T PO (10:51)
[2018-09-17] MEDS ORDERED: ACET325T33 PO (10:52)
[2018-09-17] MEDS ORDERED: CLON-379 PO (10:52)
[2018-09-17] MEDS ORDERED: PRIM50TA38 PO (10:53)
[2018-09-17] MEDS ORDERED: BEN25 PO (10:54)
[2018-09-17] MEDS ORDERED: ALLO300T2 PO (10:55)
[2018-09-17] MEDS ORDERED: TRAM50TA PO (10:55)
[2018-09-17] MEDS ORDERED: CLOP75TA19 PO (10:56)
[2018-09-17] MEDS ORDERED: ATOR20TA38 PO (10:56)
[2018-09-17] MEDS ORDERED: METO-448 PO (10:57)
[2018-09-17] MEDS ORDERED: FURO40TA4 PO (10:57)
--- NOTE | 2018-09-17 13:08 | ERD ---
ER Documentation Chief Complaint Chief Complaint BIB RA AFTER HD FOR SOB LOW O2 SAT. HPI This is an 88-year-old gentleman history of end-stage renal disease on dialysis who presents with hypoxia and shortness of breath. It appears that the symptoms have been present for at least 1-2 months however at dialysis today the patient had increasing oxygen requirement and only 30 minutes of dialysis were completed. Upon arrival the patient describes generalized weakness and malaise. He does describe a cough that is slightly productive for approximately 1-2 months. He denies any chest pain or pressure. No leg swelling. ROS All systems reviewed and are negative except as per history of present illness. Medications Home Meds Reported Medications Metoprolol Tartrate* (Lopressor*) 25 Mg Tab, 25 MG PO DIRECTED, #60 TAB 09/17/18 Furosemide* (Furosemide*) 40 Mg Tablet, 40 MG PO DAILY, TAB 09/17/18 Clopidogrel Bisulfate* (Clopidogrel Bisulfate*) 75 Mg Tablet, 75 MG PO DAILY, #30 TAB 09/17/18 Atorvastatin Calcium* (Atorvastatin Calcium*) 20 Mg Tablet, 20 MG PO QHS, #30 TAB 09/17/18 Allopurinol* (Allopurinol*) 300 Mg Tablet, 300 MG PO DAILY, TAB 09/17/18 Tramadol Hcl* (Ultram*) 50 Mg Tablet, 50 MG PO DAILY PRN for PAIN, TAB 09/17/18 Diphenhydramine Hcl* (Benadryl*) 25 Mg Cap, 25 MG PO QHS PRN for ITCHING, CAP 09/17/18 Primidone* (Mysoline*) 50 Mg Tablet, 25 MG PO HS, TAB 09/17/18 Acetaminophen* (Tylenol*) 325 Mg Tablet, 650 MG PO BID PRN for MILD PAIN LEVEL 1-3, TAB 09/17/18 Clonidine Hcl* (Clonidine Hcl*) 0.1 Mg Tab, 0.1 MG PO QHS, TAB 09/17/18 Isosorbide Mononitrate* (Isosorbide Mononitrate*) 120 Mg Tab.sr.24h, 120 MG PO DAILY, TAB.SA 09/17/18 Digoxin* (Digitek*) 125 Mcg Tablet, 0.125 MG PO Q48H, TAB 09/17/18 Nitroglycerin* (Nitroglycerin* SL) 0.4 Mg Tab.subl, 0.4 MG SL Q5MIN PRN for CHEST PAIN, BOTTLE 09/17/18 Discontinued Reported Medications Docusate Sodium* (Colace*) 100 Mg Capsule, 100 MG PO BID, #60 CAP 08/27/18 Albuterol Sulfate* (Albuterol Sulfate* Neb) 0.083%-3 Ml Neb, 2.5 MG NEB Q6 PRN for WHEEZING AND SOB, #30 VIAL 08/27/18 Multivit/Ca Carb/B Cmplx/Fa* (Fany-Jose Luis*) 1 Tab Tab, 1 TAB PO DAILY, TAB 08/27/18 Tamsulosin Hcl* (Tamsulosin Hcl*) 0.4 Mg Cap.er.24h, 0.4 MG PO HS, CAP 08/02/18 Sennosides* (Senna Lax*) 8.6 Mg Tablet, 1 TAB PO DAILY, TAB 08/02/18 Metoclopramide* (Reglan*) 5 Mg Tablet, 5 MG PO AC MEALS AND BEDTIME, TAB 08/02/18 Lisinopril* (Lisinopril*) 5 Mg Tablet, 5 MG PO DAILY, #30 TAB 08/02/18 Lactulose* (Lactulose*) 20 Gm/30 Ml Solution, 20 GM PO DAILY PRN for CONSTIPATION, ML 08/02/18 Isosorbide Mononitrate* (Isosorbide Mononitrate*) 120 Mg Tab.sr.24h, 120 MG PO HS, TAB.SA 08/02/18 Furosemide* (Furosemide*) 40 Mg Tablet, 40 MG PO DAILY, TAB 08/02/18 Famotidine* (Famotidine*) 20 Mg Tablet, 20 MG PO DAILY, #30 TAB 08/02/18 Celecoxib* (Celebrex*) 100 Mg Capsule, 100 MG PO BID, CAP 08/02/18 Aspirin* (Aspirin* EC) 81 Mg Tablet.dr, 81 MG PO DAILY, TAB 08/02/18 Acetaminophen* (Acetaminophen*) 500 MG Extra Strength Tablet, 500 MG PO Q4H PRN for PAIN AND OR ELEVATED TEMP, TAB 06/06/18 Metoprolol Tartrate* (Lopressor*) 25 Mg Tablet, 25 MG PO BID, #60 TAB 06/06/18 Atorvastatin Calcium* (Atorvastatin Calcium*) 20 Mg Tablet, 20 MG PO QHS, #30 TA B 06/06/18 Clopidogrel Bisulfate (Clopidogrel) 75 Mg Tablet, 75 MG PO DAILY, #30 TAB 06/06/18 Allopurinol* (Allopurinol*) 300 Mg Tablet, 300 MG PO DAILY, TAB 06/06/18 Digoxin* (Digox*) 125 Mcg Tablet, 0.0625 MG PO DAILY, TAB 06/06/18 Allergies Allergies: Coded Allergies: Penicillins (Unverified Allergy, Severe, ANAPHYLACTIC, 09/17/18) PMhx/Soc History of Surgery: Yes (leslee cath placement, CABG, AV fistula placement) Anesthesia Reaction: No Hx Neurological Disorder: No Hx Respiratory Disorders: Yes Hx Cardiac Disorders: Yes (CAD, A.fib, CHF, HTN, hyperlipidemia) Hx Psychiatric Problems: No Hx Miscellaneous Medical Probl: No Hx Alcohol Use: No Hx Substance Use: No Hx Tobacco Use: Yes Smoking Status: Former smoker FmHx Family History: No diabetes Physical Exam Vitals Vital Signs Date Temp Pulse Resp B/P (MAP) Pulse Ox O2 O2 Flow FiO2 Time Delivery Rate 09/17/18 62 26 124/51 97 Nasal 5.0 11:49 (75) Cannula 09/17/18 70 19 92 Nasal 4.0 09:34 Cannula 09/17/18 4.0 09:34 09/17/18 97.5 70 22 142/64 87 09:23 (90) 09/17/18 61 26 140/84 97 Nasal 5.0 09:15 (102) Cannula 09/17/18 Nasal 5 09:15 Cannula Physical Exam General: Elderly gentleman who is slightly slow to respond but protecting his airway Head: Normocephalic, atraumatic. Eyes: Pupils equally reactive, EOM intact ENT: Moist mucous membranes Neck: Supple, no lymphadenopathy Respiratory: Rhonchi and wheezing bilaterally right greater than left, no inc reased work of breathing Cardiovascular: RRR, no murmurs, rubs, or gallops Abdominal: Soft, non-tender, non-distended, no peritoneal signs : Deferred MSK: No edema, no unilateral swelling, 5/5 strength Neurologic: Somewhat sedate however alert and oriented, moving all extremities, normal speech, no focal weakness, no cerebellar signs Skin: No rash Psych: Normal mood Result Diagram: 09/17/1893609/17/18936 Results 24 hrs Laboratory Tests Test 09/17/18 09:22 09/17/18 09:30 09/17/18 09:37 09/17/18 12:14 Blood Gas Blood arterial Specimen Source Arterial Blood 09/17/2018 9:44:58 Date Drawn AM Arterial Blood pH 7.343 (Temp corrected) Arterial Blood 46.7 mmhg pCO2 (Temp correct) Arterial Blood 64.2 mmHG pO2 (Temp corrected) Arterial Blood 24.8 mmol/L HCO3 Arterial Blood -1.1 mmol/L Base Excess Arterial Blood 90.3 mmHG Oxygen Saturation Dom Test ACCEPTAB Arterial Blood Left Radial Gas Puncture Site Arterial 0.9 % Blood Carboxyhemo globin Arterial Blood 0.3 % Methemoglobin Blood Gas A-a O2 232.5 mmHg Differential Oxyhemoglobin 89.2 % Percent Blood Gas 37.0 C Temperature Blood Gas MASK - SIMPLE Modality FiO2 49.0 % Blood Gas MDA Notified Whom Blood Gas 09/17/2018 9:47:25 Notified Time AM POC Venous 1.4 mmol/L Lactate White Blood Count 14.1 10^3/ul Red Blood Count 3.80 10^6/ul Hemoglobin 9.9 g/dl Hematocrit 33.1 % Mean Corpuscular 87.1 fl Volume Mean Corpuscular 26.1 pg Hemoglobin Mean Corpuscular 29.9 g/dl Hemoglobin Concen t Red Cell 21.7 % Distribution Width Platelet Count 281 10^3/UL Mean Platelet 10.1 fl Volume Immature 1.300 % Granulocytes % Neutrophils % 82.9 % Lymphocytes % 4.6 % Monocytes % 7.6 % Eosinophils % 3.2 % Basophils % 0.4 % Nucleated Red 0.0 /100WBC Blood Cells % Immature 0.180 10^3/ul Granulocytes # Neutrophils # 11.6 10^3/ul Lymphocytes # 0.7 10^3/ul Monocytes # 1.1 10^3/ul Eosinophils # 0.5 10^3/ul Basophils # 0.1 10^3/ul Nucleated Red 0.0 10^3/ul Blood Cells # Prothrombin Time 14.4 Sec Prothrombin Time 1.1 Ratio INR International 1.11 Normalized Ratio Activated 37.7 Sec Partial Thrombopl ast Time Sodium Level 135 mmol/L Potassium Level 5.0 mmol/L Chloride Level 93 mmol/L Carbon Dioxide 24 mmol/L Level Anion Gap 18 Blood Urea 70 mg/dl Nitrogen Creatinine 6.24 mg/dl Est Glomerular mL/min Filtrat Rate mL/min Glucose Level 107 mg/dl Calcium Level 8.5 mg/dl Troponin I 0.048 ng/ml Lactic Acid Level 1.5 mmol/L Current Medications Medications Dose Sig/Carmelita Start Time Status Last (Trade) Ordered Route PRN Stop Time Admin Dose Reason Admin Cefepime HCl 50 ml @ ONCE STAT 09/17/18 DC 09/17/18 100 mls/hr IVPB 09:22 09/17/18 09:58 09:51 Vancomycin 250 ml @ ONCE STAT 09/17/18 DC 09/17/18 HCl 125 mls/hr IVPB 09:22 09/17/18 11:15 11:21 Albuterol 15 mg ONCE STAT 09/17/18 DC 09/17/18 (Proventil INH 09:22 09/17/18 09:32 0.5% (Neb)) 09:24 Ipratropium 2 mg ONCE STAT 09/17/18 DC 09/17/18 [place] INH 09:22 09/17/18 09:32 (Atrovent 09:24 0.02% (Neb)) Procedures/MDM EKG, MONITORS, & DIAGNOSTIC IMAGING: EKG: I reviewed and interpreted a 12-lead EKG. Rhythm: Normal sinus rhythm ST Changes: No contiguous ST segment elevations T waves: No contiguous T wave inversions Impression: No evidence of acute cardiac ischemia Chest x-ray: I reviewed and interpreted a 1 view of the chest Mediastinum: No enlargement Cardiac silhouette: cardiomegaly Airspace: Patient has a large right-sided focal infiltrate Bones: No evidence of fracture LAB INTERPRETATION: I reviewed the laboratory testing and it shows leukocytosis of 14 with a hemoglobin of 9.9, end-stage renal disease without hyperkalemia, normal lactic acid of 1.5, troponin indeterminate but likely normal in the setting of dialysis Arterial blood gases reassuring with evidence of no hypercarbia but does show evidence of shunt physiology secondary to low oxygen value MEDICAL DECISION MAKING: Patient presents with increased oxygen requirement, cough for approximately 1 month raising the concern for multiple etiologies but also concern for pneumonia. Patient will benefit from sepsis screening. Also consider possible volume overload the patient has a known history of end-stage renal disease but also cardiomyopathy with EF of 20%. I would avoid aggressive fluid resuscitation. The patient did have significant oxygen requirement in the emergency room. This prompted ABG which is reassuring. The patient was given an hour-long breathing treatment. He did have improvement and improve mental status during this timeframe. While the patient does have Sirs criteria with source of infection and meets criteria for sepsis the patient is hemodynamically stable. I am concerned that aggressive fluid resuscitation would prompt positive pressure ventilation or even intubation. Based on the patient's goals of care and conversation with family member the patient would not like to be intubated and would not like to have cardia pulmonary resuscitation. For this reason I believe avoiding fluid resuscitation this patient will be most appropriate. Lactic acid and hemodynamics are reassuring that this is not necessary. Blood cultures prior to broad-spectrum antibiotics provided. ER COURSE: * Broad-spectrum antibiotics provided, breathing treatments provided * Hemodynamic stability persists * Dr. Tomlin, patient's inspector watch parts was notified and will arrange for dialysis today * Family is updated. We do not have an advanced directive for this patient. The family seems to suggest that the patient is DNR/DNI but cannot fully confirm this. We are attempting to reach out to the facility for confirmation. CONSULTATION: Nephrology: Dr. Tomlin DISPOSITION PLAN: Accepting care team and consultations: I discussed the current laboratory data, diagnostic imaging and emergency care provided. Admitting team: Dr. Dash project control analyst for Dr. Panda Admitting team indication: Insurance directed Sepsis Documentation: Patient's infectious symptoms have not stabilized and the patient is at risk of rapid decompensation. The patient will be admitted for careful hydration, antibiotic therapy, and infectious source control. SEVERE SEPSIS CRITERIA: Infectious source: Healthcare associated pneumonia End organ damage indicated by: Acute Resp Failure (sat < 92% w/o oxygen) SEPSIS MANAGEMENT Time of recognition of sepsis: Upon MD assessment. Time of recognition of severe sepsis: Upon MD assessment Time of recognition of septic shock: No septic shock at this time. 3 HOUR BUNDLE Blood cultures x 2 before broad-spectrum antibiotics: Yes 30 ml/kg NS bolus not provided given reasoning as documented above Initial lactate less than 2 Repeat lactate less than 2 SEPTIC SHOCK ASSESSMENT: No lactic acid > 4.0 No persistent hypotension (SBP < 90 or 40 mmHg drop, MAP < 65) despite 30 mL/kg IV fluid bolus VOLUME REASSESSMENT FOR SEPTIC SHOCK: The patient does not meet criteria for septic shock in the emergency department at this time PERSISTENT HYPOTENSION TREATMENT: Comfort care attempting to finalize patient's advanced directives Central line not Required Vasopressor started not required I considered further perfusion assessment with CVP measurement, SCVO2, bedside ultrasound volume assessment, passive leg raise, trial of further fluid bolus. And proceeded with broad spectrum antibiotics, and admission. CRITICAL CARE Critical care time 41 minutes Emergent fluid management while maintaining close respiratory support. Pro vision of immediate and broad-spectrum antibiotic therapy. Simultaneous assessment for possible sources in order to direct targeted therapy. Consideration for invasive and chemical support to prevent cardiopulmonary collapse. Critical care time is independent of procedures performed. Departure Diagnosis: Primary Impression: End stage renal disease Additional Impressions: Healthcare-associated pneumonia Severe sepsis Hypoxia Condition: DEMARCUS Moseley MD Sep 17, 2018 13:08
[2018-09-17] MEDS ORDERED: ONDANSETRON 4 MG INJ IV PRN ×2 (13:30→17:30)
[2018-09-17] MEDS ORDERED: ACETAMINOPHEN 325 MG TAB PO PRN (13:30)
[2018-09-17] MEDS ORDERED: traMADol 50 MG TAB PO PRN (17:30)
[2018-09-17] MEDS ORDERED: NACL 0.9% 3 ML SYG IV SCH (17:30)
[2018-09-17] MEDS ORDERED: NITROGLYCERIN (SL) 0.4 MG TAB SL PRN (17:30)
[2018-09-17] MEDS ORDERED: DIPHENHYDRAMINE 25 MG CAP PO PRN (17:30)
[2018-09-17] MEDS ORDERED: VANCOMYCIN IV PER PHARMACY XX SCH (17:30)
[2018-09-17] MEDS: traMADol 50 MG TAB PO PRN (19:31)
--- NOTE | 2018-09-17 19:55 | CONS ---
DATE OF ADMISSION: 09/17/2018 DATE OF CONSULTATION: TYPE OF CONSULTATION: Nephrology. Thank you, Dr. Dash, for asking me to participate in medical management of this patient. REASON FOR CONSULTATION: End-stage renal disease. HISTORY OF PRESENT ILLNESS: This 88-year-old man was admitted today through the emergency room [facility] of shortness of breath and hypoxia. The patient was transferred from the [facility] sis unit after he became short of breath and hypoxic. The patient has been having some chest congest ion although his did see him 2 days ago in the [facility] where he is res iding and she said he was feeling good at that time. Then, today he went for his routine hemodialysi s treatment. During the treatment he became short of breath and hypoxic with pO2 as low as 80. He w as then transferred to the [facility] for further evaluation and treatment. The patient is being seen now and is on hemodialysis. The patient has had end-stage renal disease an d has been on maintenance hemodialysis for at least 5 years. I have followed the patient nephrologic ally over that period of time. He usually dialyzes at the [facility] dialysis unit in [place] Sunday, Sun, Sunday and had his routine treatment today being Sunday. He has been residing at the [facility] for some time. He did have a long episode of metabolic encephalopathy e atuler this year. He improved and was then transferred to the acute rehabilitation unit. The patien t has a new right upper arm AV fistula which was created by Dr. Slater, his vascular surgeon. The ankit jarvis is using that access now. PAST MEDICAL HISTORY: Remarkable for end-stage renal disease, urinary retention and urinary bladder mass, history of hypertension, atherosclerotic heart disease, previous left upper arm AV fistula whjoseph burrows is now not working. He did have a right femoral catheter which was used for some time for dialysis . Paroxysmal atrial fibrillation, ischemic cardiomyopathy, CVA. PAST SURGICAL HISTORY: Included coronary artery bypass grafting years ago. He underwent that surger y in 2012, basal cell skin cancer removed, hernia repair, prostate removal for prostate cancer. CURRENT MEDICATIONS: Include the followin. Cefepime 0.5 g q.24 hours. 2. Digoxin 0.125 mg every 48 hours. 3. Plavix 75 mg a day. 4. Isosorbide mononitrate 120 mg a day. 5. Allopurinol 100 mg a day. 6. Atorvastatin 20 mg a day. 7. Metoprolol 25 mg twice a day. 8. Primidone 25 mg at bedtime. 9. Heparin 5000 units q.12 subcutaneously. 10. Tramadol 50 mg q.12 hours p.r.n. moderate to severe pain. 11. Tylenol 650 b.i.d. p.r.n. mild pain. 12. Benadryl 25 mg at bedtime p.r.n. sleep. 13. Nitroglycerin p.r.n. chest pain. 14. Vancomycin. 15. Zofran. PHYSICAL EXAMINATION: GENERAL: At this time reveals a well-developed, ill-appearing, frail man in no apparent distress. VITAL SIGNS: Temperature 97.6, pulse is 76, respirations 18, blood pressure 127/58, O2 saturation 98 % on 5-liter nasal cannula. HEENT: Head is normocephalic. Eyes: Extraocular muscles are intact. Right eye: There is a sub co njunctival hemorrhage. Nose and mouth are normal. LUNGS: He has bilateral inspiratory and expiratory wheezes. HEART: Regular rhythm. No murmurs, gallops or rubs audible although his wheezing is prominent. ABDOMEN: Soft, nontender, no masses or megaly. EXTREMITIES: No peripheral edema. NEUROLOGIC: He has no obvious gross neurologic deficits. In his mental status, he is awake and aler t. IMPRESSION: 1. End-stage renal disease on maintenance hemodialysis. [facility] is now [facility]. He had about 30 minutes of dialysis treatment in the dialysis unit today, but became short of breath and hypoxic. He seems stable now with stable blood pressure. We will kameron n to take off as close to 2 liters of fluid as we can and we will use albumin as needed. 2. Right lower lobe pneumonia. 3. Ischemic cardiomyopathy. 4. Anemia of chronic kidney disease. 5. Overall debility now [facility]. PLAN: 1. Hemodialysis today. We will reassess in the morning for next hemodialysis which will probably be in 2 days. 2. I agree with current management including antibiotics and other cardiac medication. 3. We will start Epogen for anemia treatment. 4. I will follow the patient along with you medically. Dictated By: DEMARCUS CHING MD ND/NTS Conf#: [id number] DID#: [id number] CC: JANETH SHEPARD MD; SAMUEL DASH MD;*End*
[2018-09-17] MEDS ORDERED: VANCOMYCIN 500 MG (PMX) 100 ML IVPB SCH (20:00)
[2018-09-17] MEDS: ATORVASTATIN 20 MG TAB PO SCH (20:53)
[2018-09-17] MEDS: PRIMIDONE 50 MG TAB PO SCH (20:53)
[2018-09-17] MEDS: METOPROLOL 25 MG TAB PO SCH (20:54)
[2018-09-17] MEDS ORDERED: CEFEPIME 1GM/50 ML (PMX) 50 ML IVPB SCH (21:00)
--- NOTE | 2018-09-17 21:06 | HP ---
Date/Time of Note Date/Time of Note DATE: 09/17/18 TIME: 20:18 Assessment/Plan VTE Prophylaxis Risk score (from [facility] [place]0 risk: 6 SCD applied (from [facility] [place]): Yes Pharmacological prophylaxis: heparin Lines/Catheters IV Catheter Type (from [facility]): Saline Lock Assessment/Plan Problems: (1) Healthcare-associated pneumonia Status: Acute Comment: Likely this represents PNA based on elevated WBC. However, there is good evidence that this could simply be volume overload. Will continue vanco and cefepime initiated in the ER but will also check procalcitonin. If not eleva sav, will antibiotic regimen. (2) Severe sepsis Status: Acute Comment: This is a borderline diagnosis. BP, HR normal. Afebrile. Lactate normal. WBC elevated. Cont. vanco/cefepime. Await blood cultures. Monitor. (3) Hypoxia Status: Acute Comment: Cont. O2 and monitor. May need BiPAP. (4) End stage renal disease Status: Chronic Comment: HD per renal (5) Systolic CHF with reduced left ventricular function, NYHA class 3 Status: Acute Comment: Will contact cardiology tomorrow to discuss if there are more aggressive means of diuresis. Cont. digoxin. Furosemide d/c'ed by renal. (6) Hypertension Status: Chronic Comment: Cont. metoprolol. Clonidine d/c'ed by renal. (7) Hyperlipidemia Status: Chronic Comment: Cont. atorvastatin (8) CAD (coronary artery disease) Status: Chronic Comment: Cont. clopidogrel, isosorbide. NTG prn. (9) Hyperuricemia Status: Chronic Comment: Cont. allopurinol (10) Peripheral vascular disease Status: Chronic Comment: Cont. clopidogrel (11) Paroxysmal atrial fibrillation Status: Chronic Comment: Cont. digoxin, metoprolol. No arterial anticoagulation due to bleeding risk. (12) Tremor Status: Chronic Comment: Cont. primadone. Result Diagram: 09/17/1893609/[id number] Results 24hrs Laboratory Tests Test 09/17/18 09:22 09/17/18 09:30 09/17/18 09:37 09/17/18 12:14 Blood Gas Specimen Blood arterial Source Arterial Blood 09/17/2018 9:44:58 Date Drawn AM Arterial Blood pH 7.343 L (Temp corrected) Arterial Blood 46.7 H pCO2 (Temp correct) Arterial Blood pO2 64.2 L (Temp corrected) Arterial Blood 24.8 HCO3 Arterial Blood -1.1 Base Excess Arterial Blood 90.3 L Oxygen Saturation Dom Test ACCEPTAB Arterial Blood Gas Left Radial Puncture Site Arterial 0.9 Blood Carboxyhemog lobin Arterial Blood 0.3 Methemoglobin Blood Gas A-a O2 232.5 H Differential Oxyhemoglobin 89.2 L Percent Blood Gas 37.0 Temperature Blood Gas Modality MASK - SIMPLE FiO2 49.0 Blood Gas Notified MDA Whom Blood Gas Notified 09/17/2018 9:47:25 Time AM POC Venous Lactate 1.4 White Blood Count 14.1 #H Red Blood Count 3.80 L Hemoglobin 9.9 L Hematocrit 33.1 L Mean Corpuscular 87.1 Volume Mean Corpuscular 26.1 L Hemoglobin Mean Corpuscular 29.9 L Hemoglobin Concent Red Cell 21.7 H Distribution Width Platelet Count 281 Mean Platelet 10.1 Volume Immature 1.300 H Granulocytes % Neutrophils % 82.9 H Lymphocytes % 4.6 L Monocytes % 7.6 Eosinophils % 3.2 Basophils % 0.4 Nucleated Red 0.0 Blood Cells % Immature 0.180 H Granulocytes # Neutrophils # 11.6 H Lymphocytes # 0.7 L Monocytes # 1.1 H Eosinophils # 0.5 Basophils # 0.1 Nucleated Red 0.0 Blood Cells # Prothrombin Time 14.4 Prothrombin Time 1.1 Ratio INR International 1.11 Normalized Ratio Activated 37.[address] Time Sodium Level 135 Potassium Level 5.0 Chloride Level 93 L Carbon Dioxide 24 Level Anion Gap 18 H Blood Urea 70 H Nitrogen Creatinine 6.24 H Est Glomerular Filtrat Rate mL/min Glucose Level 107 Calcium Level 8.5 Troponin I 0.048 Lactic Acid Level 1.5 Test 09/17/18 17:57 Lactic Acid Level 0.8 HPI/ROS Admit Date/Time Admit Date/Time Sep 17, 2018 at 13:18 Hx of Present Illness 88 y/o C M w/ h/o ESRD, mixed systolic and diastolic chronic CHF, HTN, hyperuricemia, benign essential tremor, PVD, A-fib, BPH, asthma in [facility] until last night at his chronic care center when he became SOB. O2 levels were checked and were moderately low. A call was made to the MD hauling contractor and it was recommended to transfer to [facility]. Pt. refused. However, this am was at HD and developed progressively worsening SOB. Required supplemental O2 and after 30 minutes HD had to be stopped. Sent to [facility]. In ER pt. afebrile, BP NL, not tachycardic but O2 sat 87%. WBC 14K. CXR showed BLL effusions, R > L representing possible RLL PNA. Pt. given O2, started vanco/cefepime and admitted. ROS Constitutional: no complaints Eyes: no complaints ENT: no complaints Respiratory: cough, shortness of breath Cardiovascular: edema Gastrointestinal: no complaints Genitourinary: no complaints Musculoskeletal: no complaints Neurologic: no complaints PMH/Family/Social Past Medical History Medical History: congestive heart failure, coronary artery disease, high cholesterol, hypertension, renal disease, other (hyperuricemia, benign essential tremor, PVD, A-fib, BPH, asthma, CVA, spinal stenosis) Medications Current Medications Ondansetron HCl (Zofran Inj) 4 mg ER BRIDGE PRN IV NAUSEA/VOMITING; Start 09/17/18 at 13:30; Stop 09/18/18 at 13:29 Acetaminophen (Tylenol Tab) 650 mg ER BRIDGE PRN PO .MILD PAIN 1-3 OR TEMP; Start 09/17/18 at 13:30; Stop 09/18/18 at 13:29 Albumin Human 100 ml @ 100 mls/hr WITH DIALYSIS PRN IV SBP <90 DURING DIALYSIS; Start 09/17/18 at 17:30 Acetaminophen (Tylenol Tab) 650 mg BID PRN PO MILD PAIN LEVEL 1-3; Start 09/17/18 at 17:30 Atorvastatin Calcium (Lipitor) 20 mg QHS PO ; Start 09/17/18 at 21:00 Clopidogrel Bisulfate (plaVIX) 75 mg DAILY PO ; Start 09/18/18 at 09:00 Digoxin (Digoxin) 0.125 mg Q48H PO ; Start 09/18/18 at 13:00 Diphenhydramine HCl (Benadryl) 25 mg QHS PRN PO ITCHING; Start 09/17/18 at 17:30 Isosorbide Mononitrate (Imdur) 120 mg DAILY PO ; Start 09/18/18 at 09:00 Metoprolol Tartrate (Lopressor) 25 mg BID PO ; Start 09/17/18 at 21:00 Nitroglycerin (Nitroglycerin (Sl Tab) 0.4 Mg) 1 tab [id number] PRN SL CHEST PAIN; Start 09/17/18 at 17:30 Primidone (Mysoline) 25 mg HS PO ; Start 09/17/18 at 21:00 IV Flush (NS 3 ml) 3 ml PER PROTOCOL IV ; Start 09/17/18 at 17:30 Ondansetron HCl (Zofran Inj) 4 mg Q6H PRN IV NAUSEA/VOMITING; Start 09/17/18 at 17:30 Heparin Sodium (Porcine) (Heparin (5000 Units/1ml)) 5,000 unit Q12 SC ; Start 09/17/18 at 21:00 Vancomycin HCl (Vanco Iv Per Pharmacy) VANCOMYCIN PER PHARMACY PER PROTOCOL XX ; Start 09/17/18 at 17:30 Cefepime HCl 0.5 gm/Sodium Chloride 50 ml @ 100 mls/hr Q24H IVPB ; Start 09/18/18 at 20:00 Allopurinol (Zyloprim) 100 mg DAILY PO ; Start 09/18/18 at 09:00 Tramadol HCl (Ultram) 50 mg Q12H PRN PO .MOD-SEVERE PAIN Last administered on 09/17/18at 19:31; Admin Dose 50 MG; Start 09/17/18 at 18:30 Vancomycin HCl 100 ml @ 100 mls/hr Q24H IVPB ; Start 09/17/18 at 20:00; Stop 09/18/18 at 01:00 Vancomycin HCl 250 ml @ 125 mls/hr Q72H IVPB ; Start 09/20/18 at 20:00 Epoetin Calos-epbx (RETACRIT(esrd)) 10,000 unit MoWeFr@1700 SC ; Start 09/18/18 at 17:00 Coded Allergies: Penicillins (Unverified Allergy, Severe, ANAPHYLACTIC, 09/17/18) Past Surgical History Past Surgical Hx: angioplasty, coronary bypass surgery, other (Construction of AV fistula bilateral upper extremities, hernia repair, carotid endarterectomy, transurethral prostatectomy, cataract surgery, carotid endarterectomy) Family History Significant Family History: heart disease, hypertension Social History Alcohol Use: none Smoking Status: Former smoker Drug Use: none Exam/Review of Systems Vital Signs Vitals VS - Last 72 Hours, by Label Date Temp Pulse Resp B/P (MAP) Pulse Ox O2 O2 Flow FiO2 Time Delivery Rate 09/17/18 98.1 20 128/51 91 Nasal 20:00 (76) Cannula 09/17/18 82 20:00 09/17/18 80 19:23 09/17/18 80 19:08 09/17/18 78 18:53 09/17/18 76 18:38 09/17/18 77 18:23 09/17/18 76 18:08 09/17/18 74 17:53 09/17/18 77 17:38 09/17/18 75 17:23 09/17/18 76 20 127/58 98 Nasal 5.0 17:08 (81) Cannula 09/17/18 77 17:08 09/17/18 Nasal 4.0 16:50 Cannula 09/17/18 97.6 76 18 127/58 93 Nasal 4.0 16:11 (81) Cannula 09/17/18 79 16:04 09/17/18 98.5 74 26 133/69 97 Nasal 5.0 15:27 (90) Cannula 09/17/18 62 26 124/51 97 Nasal 5.0 11:49 (75) Cannula 09/17/18 70 19 92 Nasal 4.0 09:34 Cannula 09/17/18 4.0 09:34 09/17/18 97.5 70 22 142/64 87 09:23 (90) 09/17/18 61 26 140/84 97 Nasal 5.0 09:15 (102) Cannula 09/17/18 Nasal 5 09:15 Cannula Vital Signs Date Temp Pulse Resp B/P (MAP) Pulse Ox O2 O2 Flow FiO2 Time Delivery Rate 09/17/18 98.1 20 128/51 91 Nasal 20:00 (76) Cannula 09/17/18 82 20:00 09/17/18 5.0 17:08 Exam Constitutional: alert, oriented, frail, other (obese) Psych: no complaints, nl mood/affect Eyes: nl conjunctiva, EOMI, nl lids, nl sclera, PERRL ENMT: nl external ears & nose, nl lips & teeth, mucosa pink and moist Neck: supple, non-tender; No bruits, No masses, No thyromegaly Respiratory: crackles/rales Cardiovascular: edema (2+ BLE), irregular rhythm, murmurs/extra sounds (1+ systolic murmur); No regular rate and rhythm, No rub Gastrointestinal: soft, nl liver, spleen, non-tender, bowel sounds; No mass, No rebound or guarding Musculoskeletal: nl extremities to inspection Extremities: normal pulses, edema (2+); No cyanosis, No clubbing Neurological: SUPERINTENDENT JOB II-XII intact, nl mental status, nl speech, nl strength, other ((+) tremor) SAMUEL ABRAMS MD Sep 17, 2018 20:29
[2018-09-17] MEDS: HEPARIN 5,000 UNIT/1 ML VIAL SC SCH (21:13)
[2018-09-18] VITALS (12 sets, daily range): BP systolic 110–130; BP diastolic 55–60; PULSE 69–81; RESP 16–20
[2018-09-18] MEDS ORDERED: ALBUTEROL/IPRATROPIUM (NEB) 3 ML AMP HHN STA (00:08)
[2018-09-18] MEDS ORDERED: ALLOPURINOL 300 MG TAB PO SCH (09:00)
[2018-09-18] MEDS ORDERED: FUROSEMIDE 40 MG TAB PO SCH (09:00)
--- NOTE | 2018-09-18 09:56 | CONS ---
Assessment/Plan Assessment/Plan Hospital Course (Demo Recall) Hypoxia- acute on chronic systolic heart failure with likely fluid overload, ? PNA as well. fluid mgmt with iHD given ESRD. consider therapeutic thoracentesis if unable to manage w fluids and abx . CAD s/p CABG- no cp. NYHA II-III. Pt with ischemic cm on echo with severely reduced lv systolic function EF 25% echo. NYHA stage III. progressive s/p PCI OM3, LCx- ELEUTERIO x 2 12/2015 after NSTEMI Chronic systolic heart failure- increased to NYHA III-IV type symptoms h/o TIA- no recurrent sx afib- paroxysmal, current nsr. ekg with sinus 1st degree avb twi ESRD on iHD via AVF Consultation Date/Type/Reason Admit Date/Time Sep 17, 2018 at 13:18 Date of Consultation: Sep 18, 2018 Type of Consult Cardiology Reason for Consultation SOB Requesting Provider: MELLO SAUER MD Date/Time of Note DATE: 09/18/18 TIME: 09:54 Hx of Present Illness Mr. ware is a 88-year-old man with a complicated past medical history including multivessel coronary disease status post previous PCI as well as coronary bypass surgery in 2012 as well as not a ST elevation myocardial infarction in 2016 status post PCI to left circumflex and on 3. Severe ischemic cardiomyopathy. End-stage renal disease on intermittent hemodialysis. Patient recently admitted for recurrent N STEMI treated medically. Patient has been in rehabilitation center. Went for hemodialysis this morning and had increasing shortness of breath and hypoxic. Patient transferred to [facility] for evaluation. He was found to have possible pneumonia with bilateral effusions. Patient with continued metabolic encephalopathy with altered mental status. No current complaint of chest pain shortness of breath. He is alert and oriented to person. Cannot provide further history. 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 Medical History: congestive heart failure, coronary artery disease, high cholesterol, hypertension, renal disease, other (hyperuricemia, benign essential tremor, PVD, A-fib, BPH, asthma, CVA, spinal stenosis) Home Meds Reported Medications Metoprolol Tartrate* (Lopressor*) 25 Mg Tab, 25 MG PO DIRECTED, #60 TAB 09/17/18 Furosemide* (Furosemide*) 40 Mg Tablet, 40 MG PO DAILY, TAB 09/17/18 Clopidogrel Bisulfate* (Clopidogrel Bisulfate*) 75 Mg Tablet, 75 MG PO DAILY, #30 TAB 09/17/18 Atorvastatin Calcium* (Atorvastatin Calcium*) 20 Mg Tablet, 20 MG PO QHS, #30 TAB 09/17/18 Allopurinol* (Allopurinol*) 300 Mg Tablet, 300 MG PO DAILY, TAB 09/17/18 Tramadol Hcl* (Ultram*) 50 Mg Tablet, 50 MG PO DAILY PRN for PAIN, TAB 09/17/18 Diphenhydramine Hcl* (Benadryl*) 25 Mg Cap, 25 MG PO QHS PRN for ITCHING, CAP 09/17/18 Primidone* (Mysoline*) 50 Mg Tablet, 25 MG PO HS, TAB 09/17/18 Acetaminophen* (Tylenol*) 325 Mg Tablet, 650 MG PO BID PRN for MILD PAIN LEVEL 1-3, TAB 09/17/18 Clonidine Hcl* (Clonidine Hcl*) 0.1 Mg Tab, 0.1 MG PO QHS, TAB 09/17/18 Isosorbide Mononitrate* (Isosorbide Mononitrate*) 120 Mg Tab.sr.24h, 120 MG PO DAILY, TAB.SA 09/17/18 Digoxin* (Digitek*) 125 Mcg Tablet, 0.125 MG PO Q48H, TAB 09/17/18 Nitroglycerin* (Nitroglycerin* SL) 0.4 Mg Tab.subl, 0.4 MG SL Q5MIN PRN for CHEST PAIN, BOTTLE 09/17/18 Discontinued Reported Medications Docusate Sodium* (Colace*) 100 Mg Capsule, 100 MG PO BID, #60 CAP 08/27/18 Albuterol Sulfate* (Albuterol Sulfate* Neb) 0.083%-3 Ml Neb, 2.5 MG NEB Q6 PRN for WHEEZING AND SOB, #30 VIAL 08/27/18 Multivit/Ca Carb/B Cmplx/Fa* (Fany-Jose Luis*) 1 Tab Tab, 1 TAB PO DAILY, TAB 08/27/18 Tamsulosin Hcl* (Tamsulosin Hcl*) 0.4 Mg Cap.er.24h, 0.4 MG PO HS, CAP 08/02/18 Sennosides* (Senna Lax*) 8.6 Mg Tablet, 1 TAB PO DAILY, TAB 08/02/18 Metoclopramide* (Reglan*) 5 Mg Tablet, 5 MG PO AC MEALS AND BEDTIME, TAB 08/02/18 Lisinopril* (Lisinopril*) 5 Mg Tablet, 5 MG PO DAILY, #30 TAB 08/02/18 Lactulose* (Lactulose*) 20 Gm/30 Ml Solution, 20 GM PO DAILY PRN for CONSTIPATION, ML 08/02/18 Isosorbide Mononitrate* (Isosorbide Mononitrate*) 120 Mg Tab.sr.24h, 120 MG PO HS, TAB.SA 08/02/18 Furosemide* (Furosemide*) 40 Mg Tablet, 40 MG PO DAILY, TAB 08/02/18 Famotidine* (Famotidine*) 20 Mg Tablet, 20 MG PO DAILY, #30 TAB 08/02/18 Celecoxib* (Celebrex*) 100 Mg Capsule, 100 MG PO BID, CAP 08/02/18 Aspirin* (Aspirin* EC) 81 Mg Tablet.dr, 81 MG PO DAILY, TAB 08/02/18 Acetaminophen* (Acetaminophen*) 500 MG Extra Strength Tablet, 500 MG PO Q4H PRN for PAIN AND OR ELEVATED TEMP, TAB 06/06/18 Metoprolol Tartrate* (Lopressor*) 25 Mg Tablet, 25 MG PO BID, #60 TAB 12/27/18 Atorvastatin Calcium* (Atorvastatin Calcium*) 20 Mg Tablet, 20 MG PO QHS, #30 TAB 06/06/18 Clopidogrel Bisulfate (Clopidogrel) 75 Mg Tablet, 75 MG PO DAILY, #30 TAB 06/06/18 Allopurinol* (Allopurinol*) 300 Mg Tablet, 300 MG PO DAILY, TAB 06/06/18 Digoxin* (Digox*) 125 Mcg Tablet, 0.0625 MG PO DAILY, TAB 06/06/18 Medications Current Medications Albumin Human 100 ml @ 100 mls/hr WITH DIALYSIS PRN IV SBP <90 DURING DIALYSIS; Start 09/17/18 at 17:30 Acetaminophen (Tylenol Tab) 650 mg BID PRN PO MILD PAIN LEVEL 1-3; Start 09/17/18 at 17:30 Atorvastatin Calcium (Lipitor) 20 mg QHS PO Last administered on 09/17/18at 20:53; Admin Dose 20 MG; Start 09/17/18 at 21:00 Clopidogrel Bisulfate (plaVIX) 75 mg DAILY PO ; Start 09/18/18 at 09:00 Digoxin (Digoxin) 0.125 mg Q48H PO ; Start 09/18/18 at 13:00 Diphenhydramine HCl (Benadryl) 25 mg QHS PRN PO ITCHING; Start 09/17/18 at 17:30 Isosorbide Mononitrate (Imdur) 120 mg DAILY PO ; Start 09/18/18 at 09:00 Metoprolol Tartrate (Lopressor) 25 mg BID PO Last administered on 09/17/18at 20:54; Admin Dose 25 MG; Start 09/17/18 at 21:00 Nitroglycerin (Nitroglycerin (Sl Tab) 0.4 Mg) 1 tab [id number] PRN SL CHEST PAIN; Start 09/17/18 at 17:30 Primidone (Mysoline) 25 mg HS PO Last administered on 09/17/18at 20:53; Admin Dose 25 MG; Start 09/17/18 at 21:00 IV Flush (NS 3 ml) 3 ml PER PROTOCOL IV ; Start 09/17/18 at 17:30 Ondansetron HCl (Zofran Inj) 4 mg Q6H PRN IV NAUSEA/VOMITING; Start 09/17/18 at 17:30 Heparin Sodium (Porcine) (Heparin (5000 Units/1ml)) 5,000 unit Q12 SC Last administered on 09/17/18at 21:13; Admin Dose 5,000 UNIT; Start 09/17/18 at 21:00 Vancomycin HCl (Vanco Iv Per Pharmacy) VANCOMYCIN PER PHARMACY PER PROTOCOL XX ; Start 09/17/18 at 17:30 Allopurinol (Zyloprim) 100 mg DAILY PO ; Start 09/18/18 at 09:00 Tramadol HCl (Ultram) 50 mg Q12H PRN PO .MOD-SEVERE PAIN Last administered on 09/17/18at 19:31; Admin Dose 50 MG; Start 09/17/18 at 18:30 Epoetin Calos-epbx (RETACRIT(esrd)) 10,000 unit MoWeFr@1700 SC ; Start 09/18/18 at 17:00 Cefepime HCl 50 ml @ 100 mls/hr Q24H IVPB ; Start 09/18/18 at 20:00 Allergies: Coded Allergies: Penicillins (Unverified Allergy, Severe, ANAPHYLACTIC, 09/17/18) Past Surgical History Past Surgical Hx: angioplasty, coronary bypass surgery, other (Construction of AV fistula bilateral upper extremities, hernia repair, carotid endarterectomy, transurethral prostatectomy, cataract surgery, carotid endarterectomy) Social History Alcohol Use: none Smoking Status: Former smoker Drug Use: none Exam/Review of Systems Exam Vitals Vital Signs Date Temp Pulse Resp B/P (MAP) Pulse Ox O2 O2 Flow FiO2 Time Delivery Rate 09/18/18 80 08:08 09/18/18 98.7 16 126/60 98 Room Air 07:39 (82) 09/18/18 5.0 05:36 Intake and Output 09/17/18 09/17/18 09/18/18 1515:00 23:00 07:00 IntakeIntake Total 300 ml OutputOutput Total 2600 ml BalanceBalance -2600 ml 300 ml Exam GENERAL: think calm, but not oriented. answers questions but not always appropriate HEENT: OP clear, R eye subconj hem, no swelling. + JVD, no bruit LUNGS: He has bilateral inspiratory and expiratory wheezes. decrease bs r base HEART:RRR nl s1s2, iii/vi systoli LLSB ABDOMEN: Soft, nontender, no masses or megaly. EXTREMITIES: No peripheral edema. NEUROLOGIC non focal, alert oriented to person Results Result Diagram: 09/18/18 0600 09/18/18 0600 Results 24hrs Laboratory Tests Test 09/17/18 12:14 09/17/18 17:57 09/18/18 06:00 Lactic Acid Level 1.5 0.8 White Blood Count 11.7 H Red Blood Count 3.46 L Hemoglobin 9.2 L Hematocrit 30.6 L Mean Corpuscular Volume 88.4 Mean Corpuscular Hemoglobin 26.6 L Mean Corpuscular Hemoglobin Concent 30.1 L Red Cell Distribution Width 21.7 H Platelet Count 217 # Mean Platelet Volume 9.3 Immature Granulocytes % 0.900 H Neutrophils % 87.8 H Lymphocytes % 2.4 L Monocytes % 5.3 Eosinophils % 3.0 Basophils % 0.6 Nucleated Red Blood Cells % 0.0 Immature Granulocytes # 0.110 H Neutrophils # 10.3 H Lymphocytes # 0.3 L Monocytes # 0.6 Eosinophils # 0.4 Basophils # 0.1 Nucleated Red Blood Cells # 0.0 Sodium Level 133 L Potassium Level 4.4 Chloride Level 90 L Carbon Dioxide Level 28 Anion Gap 15 H Blood Urea Nitrogen 39 #H Creatinine 4.22 #H Est Glomerular Filtrat Rate mL/min Glucose Level 80 Hemoglobin A1c 5.3 Calcium Level 8.5 Magnesium Level 2.0 Total Bilirubin 0.5 Direct Bilirubin 0.00 Indirect Bilirubin 0.5 Aspartate Amino Transf (AST/SGOT) 25 Alanine Aminotransferase (ALT/SGPT) 17 Alkaline Phosphatase 177 H Total Protein 6.6 Albumin 3.8 Globulin 2.80 Albumin/Globulin Ratio 1.35 Digoxin Level 1.1 Imaging Imaging cxr report reviewed in emr Medications Medication Current Medications Albumin Human 100 ml @ 100 mls/hr WITH DIALYSIS PRN IV SBP <90 DURING DIALYSIS; Start 09/17/18 at 17:30 Acetaminophen (Tylenol Tab) 650 mg BID PRN PO MILD PAIN LEVEL 1-3; Start 09/17/18 at 17:30 Atorvastatin Calcium (Lipitor) 20 mg QHS PO Last administered on 09/17/18at 20:53; Admin Dose 20 MG; Start 09/17/18 at 21:00 Clopidogrel Bisulfate (plaVIX) 75 mg DAILY PO ; Start 09/18/18 at 09:00 Digoxin (Digoxin) 0.125 mg Q48H PO ; Start 09/18/18 at 13:00 Diphenhydramine HCl (Benadryl) 25 mg QHS PRN PO ITCHING; Start 09/17/18 at 17:30 Isosorbide Mononitrate (Imdur) 120 mg DAILY PO ; Start 09/18/18 at 09:00 Metoprolol Tartrate (Lopressor) 25 mg BID PO Last administered on 09/17/18at 20:54; Admin Dose 25 MG; Start 09/17/18 at 21:00 Nitroglycerin (Nitroglycerin (Sl Tab) 0.4 Mg) 1 tab [id number] PRN SL CHEST PAIN; Start 09/17/18 at 17:30 Primidone (Mysoline) 25 mg HS PO Last administered on 09/17/18at 20:53; Admin Dose 25 MG; Start 09/17/18 at 21:00 IV Flush (NS 3 ml) 3 ml PER PROTOCOL IV ; Start 09/17/18 at 17:30 Ondansetron HCl (Zofran Inj) 4 mg Q6H PRN IV NAUSEA/VOMITING; Start 09/17/18 at 17:30 Heparin Sodium (Porcine) (Heparin (5000 Units/1ml)) 5,000 unit Q12 SC Last administered on 09/17/18at 21:13; Admin Dose 5,000 UNIT; Start 09/17/18 at 21:00 Vancomycin HCl (Vanco Iv Per Pharmacy) VANCOMYCIN PER PHARMACY PER PROTOCOL XX ; Start 09/17/18 at 17:30 Allopurinol (Zyloprim) 100 mg DAILY PO ; Start 09/18/18 at 09:00 Tramadol HCl (Ultram) 50 mg Q12H PRN PO .MOD-SEVERE PAIN Last administered on 09/17/18at 19:31; Admin Dose 50 MG; Start 09/17/18 at 18:30 Epoetin Calos-epbx (RETACRIT(esrd)) 10,000 unit MoWeFr@1700 SC ; Start 09/18/18 at 17:00 Cefepime HCl 50 ml @ 100 mls/hr Q24H IVPB ; Start 09/18/18 at 20:00 MARTINE ELLINGTON Sep 18, 2018 09:56
[2018-09-18] MEDS: ALLOPURINOL 100 MG TAB PO SCH (09:59)
[2018-09-18] MEDS: ISOSORBIDE MONONITRATE(SR)60 MG TAB PO SCH (09:59)
[2018-09-18] MEDS: METOPROLOL 25 MG TAB PO SCH ×2 (10:00→21:27)
[2018-09-18] MEDS: CLOPIDOGREL 75 MG TAB PO SCH (10:00)
[2018-09-18] MEDS: HEPARIN 5,000 UNIT/1 ML VIAL SC SCH ×2 (10:03→21:32)
--- NOTE | 2018-09-18 12:57 | PN ---
Date/Time of Note Date/Time of Note DATE: 09/18/18 TIME: 12:51 Assessment/Plan VTE Prophylaxis Risk score (from Ns)>0 risk: 10 SCD applied (from Ns): Yes Pharmacological prophylaxis: heparin Lines/Catheters IV Catheter Type (from [facility]): Saline Lock Assessment/Plan Result Diagram: 09/18/18 0600 09/18/18 0600 Results 24hrs Laboratory Tests Test 09/17/18 17:57 09/18/18 06:00 Lactic Acid Level 0.8 White Blood Count 11.7 H Red Blood Count 3.46 L Hemoglobin 9.2 L Hematocrit 30.6 L Mean Corpuscular Volume 88.4 Mean Corpuscular Hemoglobin 26.6 L Mean Corpuscular Hemoglobin Concent 30.1 L Red Cell Distribution Width 21.7 H Platelet Count 217 # Mean Platelet Volume 9.3 Immature Granulocytes % 0.900 H Neutrophils % 87.8 H Lymphocytes % 2.4 L Monocytes % 5.3 Eosinophils % 3.0 Basophils % 0.6 Nucleated Red Blood Cells % 0.0 Immature Granulocytes # 0.110 H Neutrophils # 10.3 H Lymphocytes # 0.3 L Monocytes # 0.6 Eosinophils # 0.4 Basophils # 0.1 Nucleated Red Blood Cells # 0.0 Sodium Level 133 L Potassium Level 4.4 Chloride Level 90 L Carbon Dioxide Level 28 Anion Gap 15 H Blood Urea Nitrogen 39 #H Creatinine 4.22 #H Est Glomerular Filtrat Rate mL/min Glucose Level 80 Hemoglobin A1c 5.3 Calcium Level 8.5 Magnesium Level 2.0 Total Bilirubin 0.5 Direct Bilirubin 0.00 Indirect Bilirubin 0.5 Aspartate Amino Transf (AST/SGOT) 25 Alanine Aminotransferase (ALT/SGPT) 17 Alkaline Phosphatase 177 H Total Protein 6.6 Albumin 3.8 Globulin 2.80 Albumin/Globulin Ratio 1.35 Digoxin Level 1.1 Subjective 24 Hr Interval Summary Free Text/Dictation 88 yr old frail man on nursing tech dialysis, recent shunt placement left arm. found to be hypoxic with dialysis yesterday to er. cxr with effusion, poss opneumonia. not septic. initial wbc is down, he is afebrile. remains sleepy, tho is alert. blood culture positive per todays report with gram positive cocci, sens pending, tho well covered with current regimen other issue is weakness, non ambulatory. has been in rehab, snf with very slow improvement vs ok, decreased breath sounds, mild cough no edema plan to continue to try to remove volume with hd, cardiac meds await sensitivities continue with p.t. Additional Comments knees with djd and pain generalized weakness Exam/Review of Systems Exam Vitals Vital Signs Date Temp Pulse Resp B/P (MAP) Pulse Ox O2 O2 Flow FiO2 Time Delivery Rate 09/18/18 5.0 12:37 09/18/18 80 08:08 09/18/18 98.7 16 126/60 98 Room Air 07:39 (82) Intake and Output 09/17/18 09/17/18 09/18/18 1515:00 23:00 07:00 IntakeIntake Total 300 ml OutputOutput Total 2600 ml BalanceBalance -2600 ml 300 ml Results Results 24hrs Laboratory Tests Test 09/17/18 17:57 09/18/18 06:00 Lactic Acid Level 0.8 White Blood Count 11.7 H Red Blood Count 3.46 L Hemoglobin 9.2 L Hematocrit 30.6 L Mean Corpuscular Volume 88.4 Mean Corpuscular Hemoglobin 26.6 L Mean Corpuscular Hemoglobin Concent 30.1 L Red Cell Distribution Width 21.7 H Platelet Count 217 # Mean Platelet Volume 9.3 Immature Granulocytes % 0.900 H Neutrophils % 87.8 H Lymphocytes % 2.4 L Monocytes % 5.3 Eosinophils % 3.0 Basophils % 0.6 Nucleated Red Blood Cells % 0.0 Immature Granulocytes # 0.110 H Neutrophils # 10.3 H Lymphocytes # 0.3 L Monocytes # 0.6 Eosinophils # 0.4 Basophils # 0.1 Nucleated Red Blood Cells # 0.0 Sodium Level 133 L Potassium Level 4.4 Chloride Level 90 L Carbon Dioxide Level 28 Anion Gap 15 H Blood Urea Nitrogen 39 #H Creatinine 4.22 #H Est Glomerular Filtrat Rate mL/min Glucose Level 80 Hemoglobin A1c 5.3 Calcium Level 8.5 Magnesium Level 2.0 Total Bilirubin 0.5 Direct Bilirubin 0.00 Indirect Bilirubin 0.5 Aspartate Amino Transf (AST/SGOT) 25 Alanine Aminotransferase (ALT/SGPT) 17 Alkaline Phosphatase 177 H Total Protein 6.6 Albumin 3.8 Globulin 2.80 Albumin/Globulin Ratio 1.35 Digoxin Level 1.1 Medications Medication Current Medications Albumin Human 100 ml @ 100 mls/hr WITH DIALYSIS PRN IV SBP <90 DURING DIALYSIS; Start 09/17/18 at 17:30 Acetaminophen (Tylenol Tab) 650 mg BID PRN PO MILD PAIN LEVEL 1-3; Start 09/17/18 at 17:30 Atorvastatin Calcium (Lipitor) 20 mg QHS PO Last administered on 09/17/18at 20:53; Admin Dose 20 MG; Start 09/17/18 at 21:00 Clopidogrel Bisulfate (plaVIX) 75 mg DAILY PO Last administered on 09/18/18at 10:00; Admin Dose 75 MG; Start 09/18/18 at 09:00 Digoxin (Digoxin) 0.125 mg Q48H PO ; Start 09/18/18 at 13:00 Diphenhydramine HCl (Benadryl) 25 mg QHS PRN PO ITCHING; Start 09/17/18 at 17:30 Isosorbide Mononitrate (Imdur) 120 mg DAILY PO Last administered on 09/18/18 09:59; Admin Dose 120 MG; Start 09/18/18 at 09:00 Metoprolol Tartrate (Lopressor) 25 mg BID PO Last administered on 09/18/18at 10:00; Admin Dose 25 MG; Start 09/17/18 at 21:00 Nitroglycerin (Nitroglycerin (Sl Tab) 0.4 Mg) 1 tab [id number] PRN SL CHEST PAIN; Start 09/17/18 at 17:30 Primidone (Mysoline) 25 mg HS PO Last administered on 09/17/18 20:53; Admin Dose 25 MG; Start 09/17/18 at 21:00 IV Flush (NS 3 ml) 3 ml PER PROTOCOL IV ; Start 09/17/18 at 17:30 Ondansetron HCl (Zofran Inj) 4 mg Q6H PRN IV NAUSEA/VOMITING; Start 09/17/18 at 17:30 Heparin Sodium (Porcine) (Heparin (5000 Units/1ml)) 5,000 unit Q12 SC Last administered on 09/18/18at 10:03; Admin Dose 5,000 UNIT; Start 09/17/18 at 21:00 Vancomycin HCl (Vanco Iv Per Pharmacy) VANCOMYCIN PER PHARMACY PER PROTOCOL XX ; Start 09/17/18 at 17:30 Allopurinol (Zyloprim) 100 mg DAILY PO Last administered on 09/18/18 09:59; Admin Dose 100 MG; Start 09/18/18 at 09:00 Tramadol HCl (Ultram) 50 mg Q12H PRN PO .MOD-SEVERE PAIN Last administered on 09/17/18at 19:31; Admin Dose 50 MG; Start 09/17/18 at 18:30 Epoetin Calos-epbx (RETACRIT(esrd)) 10,000 unit MoWeFr@1700 SC ; Start 09/18/18 at 17:00 Cefepime HCl 50 ml @ 100 mls/hr Q24H IVPB ; Start 09/18/18 at 20:00 MELLO SAUER MD Sep 18, 2018 12:57
[2018-09-18] MEDS: DIGOXIN 0.125 MG TAB PO SCH (13:55)
[2018-09-18] MEDS: EPOETIN ALFA-EPBX (ESRD) 10,000 UNIT/ML VIAL SC SCH (17:35)
--- NOTE | 2018-09-18 18:11 | CONS ---
Assessment/Plan Assessment/Plan Hospital Course (Demo Recall) 1. End-stage renal disease on maintenance hemodialysis. He had his routine hemodialysis treatment yesterday and 1800 cc of fluid was removed. I will order a hemodialysis treatment for tomorrow. 2. Pulmonary congestion due to possible pneumonia and/or congestive heart failure. He is on antibiotics. He has a chest x-ray ordered for tomorrow morning and he will have another dialysis treatment tomorrow to remove more fluid. 3. Lethargy and altered mental status 4. Cardiomyopathy 5. Anemia of chronic kidney disease. He is on Epogen. Consultation Date/Type/Reason Admit Date/Time Sep 17, 2018 at 13:18 Initial Consult Date Type of Consult Nephrology Date/Time of Note DATE: 09/18/18 TIME: 18:06 24 HR Interval Summary Free Text/Dictation Jared is in bed. He is sleeping. His is in the room with him. She said that he was awake earlier and she was able to feed him lunch. He does rales to verbal stimuli and makes eye contact. Subjective hx not possible: pt non-verbal Exam/Review of Systems Exam Vitals Vital Signs Date Temp Pulse Resp B/P (MAP) Pulse Ox O2 O2 Flow FiO2 Time Delivery Rate 09/18/18 73 16:13 09/18/18 97.5 18 116/56 98 Nasal 15:21 (76) Cannula 09/18/18 5.0 12:37 Intake and Output 09/17/18 09/17/18 09/18/18 1515:00 23:00 07:00 IntakeIntake Total 300 ml OutputOutput Total 2600 ml BalanceBalance -2600 ml 300 ml Constitutional: non-verbal, frail Respiratory: congested cough, diminished breath sounds, wheezing Cardiovascular: regular rate and rhythm Gastrointestinal: soft, non-tender Musculoskeletal: nl extremities to inspection Results Result Diagram: 09/18/18 0600 09/18/18 0600 Results 24hrs Laboratory Tests Test 09/18/18 06:00 White Blood Count 11.7 H Red Blood Count 3.46 L Hemoglobin 9.2 L Hematocrit 30.6 L Mean Corpuscular Volume 88.4 Mean Corpuscular Hemoglobin 26.6 L Mean Corpuscular Hemoglobin Concent 30.1 L Red Cell Distribution Width 21.7 H Platelet Count 217 # Mean Platelet Volume 9.3 Immature Granulocytes % 0.900 H Neutrophils % 87.8 H Lymphocytes % 2.4 L Monocytes % 5.3 Eosinophils % 3.0 Basophils % 0.6 Nucleated Red Blood Cells % 0.0 Immature Granulocytes # 0.110 H Neutrophils # 10.3 H Lymphocytes # 0.3 L Monocytes # 0.6 Eosinophils # 0.4 Basophils # 0.1 Nucleated Red Blood Cells # 0.0 Sodium Level 133 L Potassium Level 4.4 Chloride Level 90 L Carbon Dioxide Level 28 Anion Gap 15 H Blood Urea Nitrogen 39 #H Creatinine 4.22 #H Est Glomerular Filtrat Rate mL/min Glucose Level 80 Hemoglobin A1c 5.3 Calcium Level 8.5 Magnesium Level 2.0 Total Bilirubin 0.5 Direct Bilirubin 0.00 Indirect Bilirubin 0.5 Aspartate Amino Transf (AST/SGOT) 25 Alanine Aminotransferase (ALT/SGPT) 17 Alkaline Phosphatase 177 H Total Protein 6.6 Albumin 3.8 Globulin 2.80 Albumin/Globulin Ratio 1.35 Digoxin Level 1.1 Medications Medication Current Medications Albumin Human 100 ml @ 100 mls/hr WITH DIALYSIS PRN IV SBP <90 DURING DIALYSIS; Start 09/17/18 at 17:30 Acetaminophen (Tylenol Tab) 650 mg BID PRN PO MILD PAIN LEVEL 1-3; Start 09/17/18 at 17:30 Atorvastatin Calcium (Lipitor) 20 mg QHS PO Last administered on 09/17/18at 20:53; Admin Dose 20 MG; Start 09/17/18 at 21:00 Clopidogrel Bisulfate (plaVIX) 75 mg DAILY PO Last administered on 09/18/18at 10:00; Admin Dose 75 MG; Start 09/18/18 at 09:00 Digoxin (Digoxin) 0.125 mg Q48H PO Last administered on 09/18/18at 13:55; Admin Dose 0.125 MG; Start 09/18/18 at 13:00 Diphenhydramine HCl (Benadryl) 25 mg QHS PRN PO ITCHING; Start 09/17/18 at 17:30 Isosorbide Mononitrate (Imdur) 120 mg DAILY PO Last administered on 09/18/18at 09:59; Admin Dose 120 MG; Start 09/18/18 at 09:00 Metoprolol Tartrate (Lopressor) 25 mg BID PO Last administered on 09/18/18at 10:00; Admin Dose 25 MG; Start 09/17/18 at 21:00 Nitroglycerin (Nitroglycerin (Sl Tab) 0.4 Mg) 1 tab [id number] PRN SL CHEST PAIN; Start 09/17/18 at 17:30 Primidone (Mysoline) 25 mg HS PO Last administered on 09/17/18at 20:53; Admin Dose 25 MG; Start 09/17/18 at 21:00 IV Flush (NS 3 ml) 3 ml PER PROTOCOL IV ; Start 09/17/18 at 17:30 Ondansetron HCl (Zofran Inj) 4 mg Q6H PRN IV NAUSEA/VOMITING; Start 09/17/18 at 17:30 Heparin Sodium (Porcine) (Heparin (5000 Units/1ml)) 5,000 unit Q12 SC Last administered on 09/18/18at 10:03; Admin Dose 5,000 UNIT; Start 09/17/18 at 21:00 Vancomycin HCl (Vanco Iv Per Pharmacy) VANCOMYCIN PER PHARMACY PER PROTOCOL XX ; Start 09/17/18 at 17:30 Allopurinol (Zyloprim) 100 mg DAILY PO Last administered on 09/18/18at 09:59; Admin Dose 100 MG; Start 09/18/18 at 09:00 Tramadol HCl (Ultram) 50 mg Q12H PRN PO .MOD-SEVERE PAIN Last administered on 09/17/18at 19:31; Admin Dose 50 MG; Start 09/17/18 at 18:30 Epoetin Calos-epbx (RETACRIT(esrd)) 10,000 unit MoWeFr@1700 SC Last administered on 09/18/18at 17:35; Admin Dose 10,000 UNIT; Start 09/18/18 at 17:00 Cefepime HCl 50 ml @ 100 mls/hr Q24H IVPB ; Start 09/18/18 at 20:00 Miscellaneous Information (*Rx Drug Level Order Reminder*) VANCO RANDOM W/ AM LABS... RANDOM ONCE XX ; Start 09/19/18 at 05:00; Stop 09/19/18 at 05:01 DEMARCUS CHING MD Sep 18, 2018 18:11
[2018-09-18] MEDS ORDERED: CEFEPIME HCL 0.5 GM in SOD CHLORIDE 0.9% 50 ML IVPB SCH (20:00)
[2018-09-18] MEDS: ATORVASTATIN 20 MG TAB PO SCH (21:00)
[2018-09-18] MEDS: CEFEPIME 1GM/50 ML IVPB SCH (21:25)
[2018-09-18] MEDS: PRIMIDONE 50 MG TAB PO SCH (21:26)
[2018-09-19] VITALS (25 sets, daily range): BP systolic 100–145; BP diastolic 47–90; PULSE 60–89; RESP 16–25
--- NOTE | 2018-09-19 08:22 | CONS ---
Assessment/Plan Assessment/Plan Hospital Course (Demo Recall) 1. End-stage renal disease on maintenance hemodialysis. He just started his hemodialysis treatment this morning . Dialysis nurse will try to remove 2 liters of fluid . 2. Pulmonary congestion due to possible pneumonia and/or congestive heart failure. He is on antibiotics. He has a chest x-ray ordered for today . 3. Lethargy and altered mental status . He is much more alert today . 4. Cardiomyopathy 5. Anemia of chronic kidney disease. He is on Epogen. Consultation Date/Type/Reason Admit Date/Time Sep 17, 2018 at 13:18 Initial Consult Date Type of Consult Nephrology Date/Time of Note DATE: 09/19/18 TIME: 08:13 24 HR Interval Summary Free Text/Dictation Jared is now starting his hemodialysis treatment for today. He is awake and alert. He is breathing better with less cough. He complains of some low back pain from lying in bed all day. Constitutional: improved Exam/Review of Systems Exam Vitals Vital Signs Date Temp Pulse Resp B/P (MAP) Pulse Ox O2 O2 Flow FiO2 Time Delivery Rate 09/19/18 97.7 76 16 121/58 93 Mask 07:23 (79) 09/19/18 12.0 01:34 Intake and Output 09/18/18 09/18/18 09/19/18 1515:00 23:00 07:00 IntakeIntake Total 650 ml 500 ml OutputOutput Total 0 ml BalanceBalance 650 ml 500 ml Constitutional: alert, oriented, frail Psych: confusion Respiratory: congested cough, wheezing Cardiovascular: regular rate and rhythm Gastrointestinal: soft, non-tender Musculoskeletal: nl extremities to inspection Results Result Diagram: 09/19/1827 09/19/18 0627 Results 24hrs Laboratory Tests Test 09/19/18 06:27 White Blood Count 10.5 Red Blood Count 3.56 L Hemoglobin 9.3 L Hematocrit 31.4 L Mean Corpuscular Volume 88.2 Mean Corpuscular Hemoglobin 26.1 L Mean Corpuscular Hemoglobin Concent 29.6 L Red Cell Distribution Width 21.4 H Platelet Count 231 Mean Platelet Volume 10.0 Immature Granulocytes % 1.100 H Neutrophils % 81.7 H Lymphocytes % 4.8 L Monocytes % 7.1 Eosinophils % 4.7 Basophils % 0.6 Nucleated Red Blood Cells % 0.0 Immature Granulocytes # 0.120 H Neutrophils # 8.6 H Lymphocytes # 0.5 L Monocytes # 0.8 Eosinophils # 0.5 Basophils # 0.1 Nucleated Red Blood Cells # 0.0 Sodium Level 132 L Potassium Level 5.3 H Chloride Level 90 L Carbon Dioxide Level 26 Anion Gap 16 H Blood Urea Nitrogen 59 H Creatinine 5.44 H Est Glomerular Filtrat Rate mL/min Glucose Level 77 Calcium Level 8.4 Random Vancomycin Level 17.3 Medications Medication Current Medications Albumin Human 100 ml @ 100 mls/hr WITH DIALYSIS PRN IV SBP <90 DURING DIALYSIS; Start 09/17/18 at 17:30 Acetaminophen (Tylenol Tab) 650 mg BID PRN PO MILD PAIN LEVEL 1-3; Start 09/17/18 at 17:30 Atorvastatin Calcium (Lipitor) 20 mg QHS PO Last administered on 09/17/18at 20:53; Admin Dose 20 MG; Start 09/17/18 at 21:00 Clopidogrel Bisulfate (plaVIX) 75 mg DAILY PO Last administered on 09/18/18 10:00; Admin Dose 75 MG; Start 09/18/18 at 09:00 Digoxin (Digoxin) 0.125 mg Q48H PO Last administered on 09/18/18 13:55; Admin Dose 0.125 MG; Start 09/18/18 at 13:00 Diphenhydramine HCl (Benadryl) 25 mg QHS PRN PO ITCHING; Start 09/17/18 at 17:30 Isosorbide Mononitrate (Imdur) 120 mg DAILY PO Last administered on 09/18/18 09:59; Admin Dose 120 MG; Start 09/18/18 at 09:00 Metoprolol Tartrate (Lopressor) 25 mg BID PO Last administered on 09/18/18 21 :27; Admin Dose 25 MG; Start 09/17/18 at 21:00 Nitroglycerin (Nitroglycerin (Sl Tab) 0.4 Mg) 1 tab [id number] PRN SL CHEST PAIN; Start 09/17/18 at 17:30 Primidone (Mysoline) 25 mg HS PO Last administered on 09/18/18 21:26; Admin Dose 25 MG; Start 09/17/18 at 21:00 IV Flush (NS 3 ml) 3 ml PER PROTOCOL IV ; Start 09/17/18 at 17:30 Ondansetron HCl (Zofran Inj) 4 mg Q6H PRN IV NAUSEA/VOMITING; Start 09/17/18 at 17:30 Heparin Sodium (Porcine) (Heparin (5000 Units/1ml)) 5,000 unit Q12 SC Last administered on 09/18/18at 21:32; Admin Dose 5,000 UNIT; Start 09/17/18 at 21:00 Vancomycin HCl (Vanco Iv Per Pharmacy) VANCOMYCIN PER PHARMACY PER PROTOCOL XX ; Start 09/17/18 at 17:30 Allopurinol (Zyloprim) 100 mg DAILY PO Last administered on 09/18/18at 09:59; Admin Dose 100 MG; Start 09/18/18 at 09:00 Tramadol HCl (Ultram) 50 mg Q12H PRN PO .MOD-SEVERE PAIN Last administered on 09/17/18at 19:31; Admin Dose 50 MG; Start 09/17/18 at 18:30 Epoetin Calos-epbx (RETACRIT(esrd)) 10,000 unit MoWeFr@1700 SC Last administered on 09/18/18at 17:35; Admin Dose 10,000 UNIT; Start 09/18/18 at 17:00 Cefepime HCl 50 ml @ 100 mls/hr Q24H IVPB Last administered on 09/18/18 21:25; Admin Dose 100 MLS/HR; Start 09/18/18 at 20:00 DEMARCUS CHING MD Sep 19, 2018 08:22
[2018-09-19] MEDS: CLOPIDOGREL 75 MG TAB PO SCH (08:25)
[2018-09-19] MEDS: ACETAMINOPHEN 325 MG TAB PO PRN (08:25)
[2018-09-19] MEDS: ALLOPURINOL 100 MG TAB PO SCH (08:26)
[2018-09-19] MEDS: ISOSORBIDE MONONITRATE(SR)60 MG TAB PO SCH (08:32)
[2018-09-19] MEDS: METOPROLOL 25 MG TAB PO SCH ×2 (08:32→21:07)
[2018-09-19] MEDS: HEPARIN 5,000 UNIT/1 ML VIAL SC SCH ×2 (08:32→21:12)
--- NOTE | 2018-09-19 08:44 | PQ ---
Date/Time of Note Date/Time of Note DATE: 09/19/18 TIME: 08:41 Physician Query Documentation Clarification A review of the medical record found a need for documentation clarification. 88M developed progressively worsening SOB during HD. Required supplemental O2 and after 30 minutes HD had to be stopped. On admission, O2 sat as low as 87%. Pt with supplemental O2 requirements up to 15L/min Via Mask. ABG 09/17/18: pH: 7.343, pCO2: 46.7, pO2: 64.2, FIO2: 49% on Simple Mask. P/F Ratio: 131.02 Please clarify a diagnosis being treated. To facilitate accurate and complete coding, please shirin ( x ) the suspected diagnosis that apply: Some considerations include but are not limited to: (X ) Acute Respiratory Failure with Hypoxia ( ) Acute Respiratory Failure with Hypercapnia ( ) Acute Respiratory Failure unspecified ( ) Acute and chronic Respiratory Failure with Hypoxia ( ) Acute and chronic Respiratory Failure with Hypercapnia ( ) Acute and chronic Respiratory Failure unspecified ( ) Respiratory Arrest ( ) Acute Respiratory Distress Syndrome ( ) Hypoxemia Present on Admission? ( X ) Yes ( ) No ( ) Clinically unable to determine ( ) Documentation insufficient to determine Please provide your response by clicking edit document, making your choice (x ), clicking ok/save and finally clicking sign. You may alsodocument your response on your progress notes. Thank you for your time. Sincerely, Shirin De La Cruz CCDS [address] [address] ext. [phone] [email or web address] SHIRIN DE LA CRUZ Sep 19, 2018 08:44 SAMUEL ABRAMS MD Sep 20, 2018 09:05
[2018-09-19] MEDS: ALBUMIN HUMAN 25% 100 ML IV PRN (11:40)
--- NOTE | 2018-09-19 13:18 | PN ---
Date/Time of Note Date/Time of Note DATE: 09/19/18 TIME: 13:10 Assessment/Plan VTE Prophylaxis Risk score (from Ns)>0 risk: 7 SCD applied (from Ns): Yes Pharmacological prophylaxis: heparin Lines/Catheters IV Catheter Type [facility]from [facility] Saline Lock Assessment/Plan Problems: (1) Delirium due to another medical condition, acute, hypoactive Status: Acute Comment: Likely due to hypercarbia. Will change from simple mask to BiPAP and monitor. Pt. is DNR so this will be final stage of trying to oxygenate and ventilate pt. (2) Hypoxia Status: Acute Comment: Will change from simple mask to BiPAP and monitor. Pt. is DNR so this will be final stage of trying to oxygenate and ventilate pt. (3) Healthcare-associated pneumonia Status: Acute Comment: Cx (+) for coag (-) staph. Likely contaminant. Cont. vanco/cefepime and await results of procalcitonin. (4) End stage renal disease Status: Chronic Comment: S/p HD this am. Cont. HD per nephrology. (5) Systolic CHF with reduced left ventricular function, NYHA class 3 Status: Acute Comment: Defer to cardiology to see if anything can be done to improve pulmonary status. (6) CAD (coronary artery disease) Status: Chronic Comment: Cont. isosorbide daily (7) Paroxysmal atrial fibrillation Status: Chronic Comment: Cont. digoxin daily. No anticoagulation due to risk of bleeding. (8) Hypertension Status: Chronic Comment: Controlled. Cont. metoprolol (9) Hyperlipidemia Status: Chronic Comment: Cont. statin (10) Hyperuricemia Status: Chronic Comment: Cont. allopurinol (11) Tremor Status: Chronic Comment: Cont. primidone. Result Diagram: 09/19/1862609/19/18626 Results 24hrs Laboratory Tests Test 09/19/18 06:27 White Blood Count 10.5 Red Blood Count 3.56 L Hemoglobin 9.3 L Hematocrit 31.4 L Mean Corpuscular Volume 88.2 Mean Corpuscular Hemoglobin 26.1 L Mean Corpuscular Hemoglobin Concent 29.6 L Red Cell Distribution Width 21.4 H Platelet Count 231 Mean Platelet Volume 10.0 Immature Granulocytes % 1.100 H Neutrophils % 81.7 H Lymphocytes % 4.8 L Monocytes % 7.1 Eosinophils % 4.7 Basophils % 0.6 Nucleated Red Blood Cells % 0.0 Immature Granulocytes # 0.120 H Neutrophils # 8.6 H Lymphocytes # 0.5 L Monocytes # 0.8 Eosinophils # 0.5 Basophils # 0.1 Nucleated Red Blood Cells # 0.0 Sodium Level 132 L Potassium Level 5.3 H Chloride Level 90 L Carbon Dioxide Level 26 Anion Gap 16 H Blood Urea Nitrogen 59 H Creatinine 5.44 H Est Glomerular Filtrat Rate mL/min Glucose Level 77 Calcium Level 8.4 Random Vancomycin Level 17.3 Subjective 24 Hr Interval Summary Free Text/Dictation reports pt. not doing well. Has been requiring higher FiO2 and has not been eating. Did not eat breakfast and has not eaten lunch. Confused when she arrived and communicating w/ him has resulted in delirium Subjective hx not possible: pt non-verbal (asleep) Constitutional: poor po Respiratory: shortness of breath Cardiovascular: no complaints Gastrointestinal: no complaints Genitourinary: no complaints Musculoskeletal: no complaints Neurologic: confusion Psychological: confusion Exam/Review of Systems Exam Vitals VS - Last 72 Hours, by Label Date Temp Pulse Resp B/P (MAP) Pulse Ox O2 O2 Flow FiO2 Time Delivery Rate 09/19/18 97.5 72 16 130/66 98 Mask 11:46 (87) 09/19/18 80 10:55 09/19/18 Simple 11.0 10:45 Mask 09/19/18 87 10:40 09/19/18 80 10:25 09/19/18 82 10:10 09/19/18 75 09:55 09/19/18 Simple 13.0 09:45 Mask 09/19/18 81 09:40 09/19/18 83 09:25 09/19/18 81 09:10 09/19/18 77 08:55 09/19/18 Simple 15.0 08:40 Mask 09/19/18 74 08:40 09/19/18 73 08:25 09/19/18 80 08:13 09/19/18 75 08:10 09/19/18 75 25 120/56 Mask 08:00 (77) 09/19/18 75 07:55 09/19/18 97.7 76 16 121/58 93 Mask 07:23 (79) 09/19/18 79 04:00 09/19/18 98.9 79 20 127/58 96 04:00 (81) 09/19/18 94 12.0 01:34 09/19/18 98.4 73 20 117/58 93 00:00 (77) 09/19/18 74 00:00 09/18/18 95 12.0 23:40 09/18/18 72 92 Mask 15.0 22:18 09/18/18 75 91 Mask 12.0 21:00 09/18/18 77 91 Nasal 10.0 20:30 Cannula 09/18/18 78 20:00 09/18/18 78 88 Nasal 8.0 20:00 Cannula 09/18/18 99.3 81 19 110/55 94 19:58 (73) 09/18/18 Nasal 5.0 19:50 Cannula 09/18/18 73 16:13 09/18/18 97.5 79 18 116/56 98 Nasal 15:21 (76) Cannula 09/18/18 69 13:45 09/18/18 5.0 12:37 09/18/18 Nasal 5.0 09:00 Cannula 09/18/18 80 08:08 09/18/18 98.7 74 16 126/60 98 Nasal 07:39 (82) Cannula 09/18/18 5.0 05:36 09/18/18 80 04:00 09/18/18 97.7 19 127/60 92 04:00 (82) 09/18/18 Simple 8.0 01:15 Mask 09/18/18 8.0 00:28 09/18/18 74 23 94 Simple 8.0 00:26 Mask 09/18/18 75 00:00 09/18/18 99.0 20 130/58 95 00:00 (82) 09/17/18 88 Nasal 6.0 23:30 Cannula 09/17/18 79 20:25 09/17/18 82 20:08 09/17/18 98.1 20 128/51 91 Nasal 20:00 () Cannula 09/17/18 2.0 20:00 09/17/18 Nasal 4.0 20:00 Cannula 09/17/18 82 20:00 09/17/18 80 19:53 09/17/18 78 19:38 09/17/18 80 19:23 09/17/18 80 19:08 09/17/18 78 18:53 09/17/18 76 18:38 09/17/18 77 18:23 09/17/18 76 18:08 09/17/18 74 17:53 09/17/18 77 17:38 09/17/18 75 17:23 09/17/18 76 20 127/58 98 Nasal 5.0 17:08 (81) Cannula 09/17/18 77 17:08 09/17/18 Nasal 4.0 16:50 Cannula 09/17/18 97.6 76 18 127/58 93 Nasal 4.0 16:11 (81) Cannula 09/17/18 79 16:04 09/17/18 98.5 74 26 133/69 97 Nasal 5.0 15:27 (90) Cannula 09/17/18 62 26 124/51 97 Nasal 5.0 11:49 (75) Cannula 09/17/18 70 19 92 Nasal 4.0 09:34 Cannula 09/17/18 4.0 09:34 09/17/18 97.5 70 22 142/64 87 09:23 (90) 09/17/18 61 26 140/84 97 Nasal 5.0 09:15 (102) Cannula 09/17/18 Nasal 5 09:15 Cannula Vital Signs Date Temp Pulse Resp B/P (MAP) Pulse Ox O2 O2 Flow FiO2 Time Delivery Rate 09/19/18 97.5 72 16 130/66 98 Mask 11:46 (87) 09/19/18 11.0 10:45 Intake and Output 09/18/18 09/18/18 09/19/18 1515:00 23:00 07:00 IntakeIntake Total 650 ml 500 ml OutputOutput Total 0 ml BalanceBalance 650 ml 500 ml Constitutional: non-verbal, frail, obese; No alert Respiratory: crackles/rales Cardiovascular: regular rate and rhythm; No edema, No murmurs/extra sounds, No rub Gastrointestinal: soft, nl liver, spleen, non-tender, bowel sounds; No mass, No rebound or guarding Musculoskeletal: nl extremities to inspection Extremities: normal pulses; No cyanosis, No clubbing, No edema 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 Results Results 24hrs Laboratory Tests Test 09/19/18 06:27 White Blood Count 10.5 Red Blood Count 3.56 L Hemoglobin 9.3 L Hematocrit 31.4 L Mean Corpuscular Volume 88.2 Mean Corpuscular Hemoglobin 26.1 L Mean Corpuscular Hemoglobin Concent 29.6 L Red Cell Distribution Width 21.4 H Platelet Count 231 Mean Platelet Volume 10.0 Immature Granulocytes % 1.100 H Neutrophils % 81.7 H Lymphocytes % 4.8 L Monocytes % 7.1 Eosinophils % 4.7 Basophils % 0.6 Nucleated Red Blood Cells % 0.0 Immature Granulocytes # 0.120 H Neutrophils # 8.6 H Lymphocytes # 0.5 L Monocytes # 0.8 Eosinophils # 0.5 Basophils # 0.1 Nucleated Red Blood Cells # 0.0 Sodium Level 132 L Potassium Level 5.3 H Chloride Level 90 L Carbon Dioxide Level 26 Anion Gap 16 H Blood Urea Nitrogen 59 H Creatinine 5.44 H Est Glomerular Filtrat Rate mL/min Glucose Level 77 Calcium Level 8.4 Random Vancomycin Level 17.3 Medications Medication Current Medications Albumin Human 100 ml @ 100 mls/hr WITH DIALYSIS PRN IV SBP <90 DURING DIALYSIS Last administered on 09/19/18 11:40; Admin Dose 100 MLS/HR; Start 09/17/18 at 17:30 Acetaminophen (Tylenol Tab) 650 mg BID PRN PO MILD PAIN LEVEL 1-3 Last administered on 09/19/18 08:25; Admin Dose 650 MG; Start 09/17/18 at 17:30 Atorvastatin Calcium (Lipitor) 20 mg QHS PO Last administered on 09/17/18 20:53; Admin Dose 20 MG; Start 09/17/18 at 21:00 Clopidogrel Bisulfate (plaVIX) 75 mg DAILY PO Last administered on 09/19/18 08:25; Admin Dose 75 MG; Start 09/18/18 at 09:00 Digoxin (Digoxin) 0.125 mg Q48H PO Last administered on 09/18/18 13:55; Admin Dose 0.125 MG; Start 09/18/18 at 13:00 Diphenhydramine HCl (Benadryl) 25 mg QHS PRN PO ITCHING; Start 09/17/18 at 17:30 Isosorbide Mononitrate (Imdur) 120 mg DAILY PO Last administered on 09/18/18 09:59; Admin Dose 120 MG; Start 09/18/18 at 09:00 Metoprolol Tartrate (Lopressor) 25 mg BID PO Last administered on 09/18/18 21:27; Admin Dose 25 MG; Start 09/17/18 at 21:00 Nitroglycerin (Nitroglycerin (Sl Tab) 0.4 Mg) 1 tab [id number] PRN SL CHEST PAIN; Start 09/17/18 at 17:30 Primidone (Mysoline) 25 mg HS PO Last administered on 09/18/18 21:26; Admin Dose 25 MG; Start 09/17/18 at 21:00 IV Flush (NS 3 ml) 3 ml PER PROTOCOL IV ; Start 09/17/18 at 17:30 Ondansetron HCl (Zofran Inj) 4 mg Q6H PRN IV NAUSEA/VOMITING; Start 09/17/18 at 17:30 Heparin Sodium (Porcine) (Heparin (5000 Units/1ml)) 5,000 unit Q12 SC Last administered on 09/19/18 08:32; Admin Dose 5,000 UNIT; Start 09/17/18 at 21:00 Vancomycin HCl (Vanco Iv Per Pharmacy) VANCOMYCIN PER PHARMACY PER PROTOCOL XX ; Start 09/17/18 at 17:30 Allopurinol (Zyloprim) 100 mg DAILY PO Last administered on 09/19/18 08:26; Admin Dose 100 MG; Start 09/18/18 at 09:00 Tramadol HCl (Ultram) 50 mg Q12H PRN PO .MOD-SEVERE PAIN Last administered on 09/17/18 19:31; Admin Dose 50 MG; Start 09/17/18 at 18:30 Epoetin Calos-epbx (RETACRIT(esrd)) 10,000 unit MoWeFr@1700 SC Last administered on 09/18/18at 17:35; Admin Dose 10,000 UNIT; Start 09/18/18 at 17:00 Cefepime HCl 50 ml @ 100 mls/hr Q24H IVPB Last administered on 09/18/18 21:25; Admin Dose 100 MLS/HR; Start 09/18/18 at 20:00 Vancomycin HCl 250 ml @ 125 mls/hr ONCE IVPB ; Start 09/19/18 at 18:00; Stop 09/19/18 at 18:01 SAMUEL ABRAMS MD Sep 19, 2018 13:18
--- NOTE | 2018-09-19 17:14 | CONS ---
Assessment/Plan Assessment/Plan Hospital Course (Demo Recall) Hypoxia- acute on chronic systolic heart failure with likely fluid overload, ? PNA as well. fluid mgmt with iHD given ESRD. consider therapeutic thoracentesis if unable to manage w fluids and abx alone. pt is dnr status, but could have symptomatic benefit. CAD s/p CABG- no cp. NYHA II-III. Pt with ischemic cm on echo with severely reduced lv systolic function EF 25% echo. NYHA stage III. progressive s/p PCI OM3, LCx- ELEUTERIO x 2 12/2015 after NSTEMI Chronic systolic heart failure- increased to NYHA III-IV type symptoms h/o TIA- no recurrent sx afib- paroxysmal, current nsr. ekg with sinus 1st degree avb twi ESRD on iHD via AVF AMS Consultation Date/Type/Reason Admit Date/Time Sep 17, 2018 at 13:18 Initial Consult Date 09/18/18 Type of Consult Cardiology Requesting Provider: MELLO SAUER MD Date/Time of Note DATE: 09/19/18 TIME: 17:12 24 HR Interval Summary Free Text/Dictation seen this am. on iHD. pt on NRB, difficult to arouse. sitter at bedside. tele reviewed nsr Subjective hx not possible: other (uanble to obtain) Exam/Review of Systems Exam Vitals Vital Signs Date Temp Pulse Resp B/P (MAP) Pulse Ox O2 O2 Flow FiO2 Time Delivery Rate 09/19/18 97 15.0 16:21 09/19/18 70 16:08 09/19/18 90 15:47 09/19/18 97.6 18 145/63 BIPAP 15:27 (90) Intake and Output 09/18/18 09/18/18 09/19/18 1515:00 23:00 07:00 IntakeIntake Total 650 ml 500 ml OutputOutput Total 0 ml BalanceBalance 650 ml 500 ml Exam GENERAL: think calm, but not oriented. answers questions but not always appropriate HEENT: OP clear, R eye subconj hem, no swelling. + JVD, no bruit LUNGS: He has bilateral inspiratory and expiratory wheezes. decrease bs r base HEART:RRR nl s1s2, iii/vi systoli LLSB ABDOMEN: Soft, nontender, no masses or megaly. EXTREMITIES: No peripheral edema. NEUROLOGIC non focal, alert oriented to person Results Result Diagram: 09/19/18 0627 09/19/18 0627 Results 24hrs Laboratory Tests Test 09/19/18 06:27 White Blood Count 10.5 Red Blood Count 3.56 L Hemoglobin 9.3 L Hematocrit 31.4 L Mean Corpuscular Volume 88.2 Mean Corpuscular Hemoglobin 26.1 L Mean Corpuscular Hemoglobin Concent 29.6 L Red Cell Distribution Width 21.4 H Platelet Count 231 Mean Platelet Volume 10.0 Immature Granulocytes % 1.100 H Neutrophils % 81.7 H Lymphocytes % 4.8 L Monocytes % 7.1 Eosinophils % 4.7 Basophils % 0.6 Nucleated Red Blood Cells % 0.0 Immature Granulocytes # 0.120 H Neutrophils # 8.6 H Lymphocytes # 0.5 L Monocytes # 0.8 Eosinophils # 0.5 Basophils # 0.1 Nucleated Red Blood Cells # 0.0 Sodium Level 132 L Potassium Level 5.3 H Chloride Level 90 L Carbon Dioxide Level 26 Anion Gap 16 H Blood Urea Nitrogen 59 H Creatinine 5.44 H Est Glomerular Filtrat Rate mL/min Glucose Level 77 Calcium Level 8.4 Random Vancomycin Level 17.3 Imaging Imaging cxr report reviewed in emr Medications Medication Current Medications Albumin Human 100 ml @ 100 mls/hr WITH DIALYSIS PRN IV SBP <90 DURING DIALYSIS Last administered on 09/19/18at 11:40; Admin Dose 100 MLS/HR; Start 09/17/18 at 17:30 Acetaminophen (Tylenol Tab) 650 mg BID PRN PO MILD PAIN LEVEL 1-3 Last administered on 09/19/18at 08:25; Admin Dose 650 MG; Start 09/17/18 at 17:30 Atorvastatin Calcium (Lipitor) 20 mg QHS PO Last administered on 09/17/18at 20:53; Admin Dose 20 MG; Start 09/17/18 at 21:00 Clopidogrel Bisulfate (plaVIX) 75 mg DAILY PO Last administered on 09/19/18 08:25; Admin Dose 75 MG; Start 09/18/18 at 09:00 Digoxin (Digoxin) 0.125 mg Q48H PO Last administered on 09/18/18at 13:55; Admin Dose 0.125 MG; Start 09/18/18 at 13:00 Diphenhydramine HCl (Benadryl) 25 mg QHS PRN PO ITCHING; Start 09/17/18 at 17:30 Isosorbide Mononitrate (Imdur) 120 mg DAILY PO Last administered on 09/18/18 09:59; Admin Dose 120 MG; Start 09/18/18 at 09:00 Metoprolol Tartrate (Lopressor) 25 mg BID PO Last administered on 09/18/18 21: 27; Admin Dose 25 MG; Start 09/17/18 at 21:00 Nitroglycerin (Nitroglycerin (Sl Tab) 0.4 Mg) 1 tab [id number] PRN SL CHEST PAIN; Start 09/17/18 at 17:30 Primidone (Mysoline) 25 mg HS PO Last administered on 09/18/18 21:26; Admin Dose 25 MG; Start 09/17/18 at 21:00 IV Flush (NS 3 ml) 3 ml PER PROTOCOL IV ; Start 09/17/18 at 17:30 Ondansetron HCl (Zofran Inj) 4 mg Q6H PRN IV NAUSEA/VOMITING; Start 09/17/18 at 17:30 Heparin Sodium (Porcine) (Heparin (5000 Units/1ml)) 5,000 unit Q12 SC Last administered on 09/19/18 08:32; Admin Dose 5,000 UNIT; Start 09/17/18 at 21:00 Vancomycin HCl (Vanco Iv Per Pharmacy) VANCOMYCIN PER PHARMACY PER PROTOCOL XX ; Start 09/17/18 at 17:30 Allopurinol (Zyloprim) 100 mg DAILY PO Last administered on 09/19/18 08:26; Admin Dose 100 MG; Start 09/18/18 at 09:00 Tramadol HCl (Ultram) 50 mg Q12H PRN PO .MOD-SEVERE PAIN Last administered on 09/17/18 19:31; Admin Dose 50 MG; Start 09/17/18 at 18:30 Epoetin Calos-epbx (RETACRIT(esrd)) 10,000 unit MoWeFr@1700 SC Last administered on 09/18/18 17:35; Admin Dose 10,000 UNIT; Start 09/18/18 at 17:00 Cefepime HCl 50 ml @ 100 mls/hr Q24H IVPB Last administered on 09/18/18 21:25; Admin Dose 100 MLS/HR; Start 09/18/18 at 20:00 Vancomycin HCl 250 ml @ 125 mls/hr ONCE IVPB ; Start 09/19/18 at 18:00; Stop 09/19/18 at 18:01 MARTINE ELLINGTON Sep 19, 2018 17:13
[2018-09-19] MEDS ORDERED: VANCOMYCIN 1 GM 250 ML IVPB SCH (18:00)
[2018-09-19] MEDS: ATORVASTATIN 20 MG TAB PO SCH (21:07)
[2018-09-19] MEDS: CEFEPIME 1GM/50 ML IVPB SCH (21:07)
[2018-09-19] MEDS: PRIMIDONE 50 MG TAB PO SCH (21:07)
[2018-09-20] VITALS (13 sets, daily range): BP systolic 116–138; BP diastolic 49–60; PULSE 63–96; RESP 18–33
[2018-09-20] MEDS: ACETAMINOPHEN 325 MG TAB PO PRN (07:49)
[2018-09-20] MEDS: CLOPIDOGREL 75 MG TAB PO SCH (08:32)
[2018-09-20] MEDS: ALLOPURINOL 100 MG TAB PO SCH (08:32)
[2018-09-20] MEDS: METOPROLOL 25 MG TAB PO SCH ×2 (08:34→21:53)
[2018-09-20] MEDS: ISOSORBIDE MONONITRATE(SR)60 MG TAB PO SCH (08:42)
[2018-09-20] MEDS: HEPARIN 5,000 UNIT/1 ML VIAL SC SCH ×2 (08:53→21:47)
--- NOTE | 2018-09-20 09:55 | CONS ---
Assessment/Plan Assessment/Plan Hospital Course (Demo Recall) 1. End-stage renal disease on maintenance hemodialysis. He has hemodialysis ordered for tomorrow. He dialyzes Sunday. 2. Pulmonary congestion due to possible pneumonia and/or congestive heart failure. He is on antibiotics. He seems less congested today. Chest x-ray do ne yesterday still shows right lower lobe infiltrate and / or effusion.. 3. Lethargy and altered mental status . He is less alert today . 4. Cardiomyopathy 5. Anemia of chronic kidney disease. He is on Epogen. Consultation Date/Type/Reason Admit Date/Time Sep 17, 2018 at 13:18 Initial Consult Date Type of Consult Nephrology Requesting Provider: MELLO SAUER MD Date/Time of Note DATE: 09/20/18 TIME: 09:49 24 HR Interval Summary Free Text/Dictation Jared is in bed. He is sleeping. He is not rousing to verbal stimuli. Subjective hx not possible: pt non-verbal Exam/Review of Systems Exam Vitals Vital Signs Date Temp Pulse Resp B/P (MAP) Pulse Ox O2 O2 Flow FiO2 Time Delivery Rate 09/20/18 81 08:16 09/20/18 98.4 18 121/57 92 Mask 9.0 07:21 (78) 09/19/18 90 15:47 Intake and Output 09/19/18 09/19/18 09/20/18 1515:00 23:00 07:00 IntakeIntake Total 150 ml 600 ml OutputOutput Total 2800 ml BalanceBalance -2800 ml 150 ml 600 ml Constitutional: non-verbal Psych: confusion Respiratory: clear to auscultation Cardiovascular: regular rate and rhythm Gastrointestinal: soft, non-tender Musculoskeletal: nl extremities to inspection Results Result Diagram: 09/20/18 0635 09/20/18 0635 Results 24hrs Laboratory Tests Test 09/19/18 21:06 09/20/18 06:35 09/20/18 06:42 Bedside Glucose 63 L 81 White Blood Count 9.7 Red Blood Count 3.73 L Hemoglobin 9.6 L Hematocrit 33.1 L Mean Corpuscular Volume 88.7 Mean Corpuscular Hemoglobin 25.7 L Mean Corpuscular Hemoglobin Concent 29.0 L Red Cell Distribution Width 21.4 H Platelet Count 236 Mean Platelet Volume 9.6 Immature Granulocytes % 0.600 H Neutrophils % 84.1 H Lymphocytes % 3.6 L Monocytes % 6.9 Eosinophils % 4.2 Basophils % 0.6 Nucleated Red Blood Cells % 0.0 Immature Granulocytes # 0.060 H Neutrophils # 8.2 H Lymphocytes # 0.4 L Monocytes # 0.7 Eosinophils # 0.4 Basophils # 0.1 Nucleated Red Blood Cells # 0.0 Sodium Level 137 Potassium Level 4.5 Chloride Level 99 Carbon Dioxide Level 25 Anion Gap 13 Blood Urea Nitrogen 36 #H Creatinine 4.25 #H Est Glomerular Filtrat Rate mL/min Glucose Level 75 Calcium Level 8.9 Medications Medication Current Medications Albumin Human 100 ml @ 100 mls/hr WITH DIALYSIS PRN IV SBP <90 DURING DIALYSIS Last administered on 09/19/18 11:40; Admin Dose 100 MLS/HR; Start 09/17/18 at 17:30 Acetaminophen (Tylenol Tab) 650 mg BID PRN PO MILD PAIN LEVEL 1-3 Last administered on 09/20/18 07:49; Admin Dose 650 MG; Start 09/17/18 at 17:30 Atorvastatin Calcium (Lipitor) 20 mg QHS PO Last administered on 09/19/18 21:07; Admin Dose 20 MG; Start 09/17/18 at 21:00 Clopidogrel Bisulfate (plaVIX) 75 mg DAILY PO Last administered on 09/20/18 08:32; Admin Dose 75 MG; Start 09/18/18 at 09:00 Digoxin (Digoxin) 0.125 mg Q48H PO Last administered on 09/18/18 13:55; Admin Dose 0.125 MG; Start 09/18/18 at 13:00 Diphenhydramine HCl (Benadryl) 25 mg QHS PRN PO ITCHING; Start 09/17/18 at 17:30 Isosorbide Mononitrate (Imdur) 120 mg DAILY PO Last administered on 09/20/18 08:42; Admin Dose 120 MG; Start 09/18/18 at 09:00 Metoprolol Tartrate (Lopressor) 25 mg BID PO Last administered on 09/20/18 08:34; Admin Dose 25 MG; Start 09/17/18 at 21:00 Nitroglycerin (Nitroglycerin (Sl Tab) 0.4 Mg) 1 tab [id number] PRN SL CHEST PAIN; Start 09/17/18 at 17:30 Primidone (Mysoline) 25 mg HS PO Last administered on 09/19/18 21:07; Admin Dose 25 MG; Start 09/17/18 at 21:00 IV Flush (NS 3 ml) 3 ml PER PROTOCOL IV ; Start 09/17/18 at 17:30 Ondansetron HCl (Zofran Inj) 4 mg Q6H PRN IV NAUSEA/VOMITING; Start 09/17/18 at 17:30 Heparin Sodium (Porcine) (Heparin (5000 Units/1ml)) 5,000 unit Q12 SC Last administered on 09/20/18 08:53; Admin Dose 5,000 UNIT; Start 09/17/18 at 21:00 Vancomycin HCl (Vanco Iv Per Pharmacy) VANCOMYCIN PER PHARMACY PER PROTOCOL XX ; Start 09/17/18 at 17:30 Allopurinol (Zyloprim) 100 mg DAILY PO Last administered on 09/20/18 08:32; Admin Dose 100 MG; Start 09/18/18 at 09:00 Tramadol HCl (Ultram) 50 mg Q12H PRN PO .MOD-SEVERE PAIN Last administered on 09/17/18 19:31; Admin Dose 50 MG; Start 09/17/18 at 18:30 Epoetin Calos-epbx (RETACRIT(esrd)) 10,000 unit MoWeFr@1700 SC Last administered on 09/18/18at 17:35; Admin Dose 10,000 UNIT; Start 09/18/18 at 17:00 Cefepime HCl 50 ml @ 100 mls/hr Q24H IVPB Last administered on 09/19/18 21:07; Admin Dose 100 MLS/HR; Start 09/18/18 at 20:00 DEMARCUS CHING MD Sep 20, 2018 09:55
--- NOTE | 2018-09-20 13:04 | PN ---
Date/Time of Note Date/Time of Note DATE: 09/20/18 TIME: 12:55 Assessment/Plan VTE Prophylaxis Risk score (from Ns)>0 risk: 8 SCD applied (from Ns): Yes Pharmacological prophylaxis: heparin Lines/Catheters [facility] Saline Lock Assessment/Plan Result Diagram: 09/20/18 0635 09/20/18 0635 Results 24hrs Laboratory Tests Test 09/19/18 21:06 09/20/18 06:35 09/20/18 06:42 Bedside Glucose 63 L 81 White Blood Count 9.7 Red Blood Count 3.73 L Hemoglobin 9.6 L Hematocrit 33.1 L Mean Corpuscular Volume 88.7 Mean Corpuscular Hemoglobin 25.7 L Mean Corpuscular Hemoglobin Concent 29.0 L Red Cell Distribution Width 21.4 H Platelet Count 236 Mean Platelet Volume 9.6 Immature Granulocytes % 0.600 H Neutrophils % 84.1 H Lymphocytes % 3.6 L Monocytes % 6.9 Eosinophils % 4.2 Basophils % 0.6 Nucleated Red Blood Cells % 0.0 Immature Granulocytes # 0.060 H Neutrophils # 8.2 H Lymphocytes # 0.4 L Monocytes # 0.7 Eosinophils # 0.4 Basophils # 0.1 Nucleated Red Blood Cells # 0.0 Sodium Level 137 Potassium Level 4.5 Chloride Level 99 Carbon Dioxide Level 25 Anion Gap 13 Blood Urea Nitrogen 36 #H Creatinine 4.25 #H Est Glomerular Filtrat Rate mL/min Glucose Level 75 Calcium Level 8.9 Subjective 24 Hr Interval Summary Free Text/Dictation will is not doing well needs mask oxygen to prevent desats, sleeps easily. choked on food this am, st to see him blood cult only contaminant, to dc vanco. wakes easily, seems alert for the moment, understands that the heart and lungs are a problem lungs w decreased bs, hr ok, abd soft rhythm sinus margarita, first degree block cxr w effusions imp end stage renal disease, poor cardiac fx w low ef, fluid overload/chf difficult to treat medically. at bedside, understthe poor prognosis and intermediate accountant consequences. she is not in favor of thoracentesis, nor am i at this point. will continue with cureent rx for now. Constitutional: requiring O2 (weakness) Respiratory: shortness of breath Exam/Review of Systems Exam Vitals Vital Signs Date Temp Pulse Resp B/P (MAP) Pulse Ox O2 O2 Flow FiO2 Time Delivery Rate 09/20/18 66 12:48 09/20/18 97.7 18 116/55 98 BIPAP 12:02 (75) 09/20/18 9.0 07:21 09/19/18 90 15:47 Intake and Output 09/19/18 09/19/18 09/20/18 1515:00 23:00 07:00 IntakeIntake Total 150 ml 600 ml OutputOutput Total 2800 ml BalanceBalance -2800 ml 150 ml 600 ml Results Results 24hrs Laboratory Tests Test 09/19/18 21:06 09/20/18 06:35 09/20/18 06:42 Bedside Glucose 63 L 81 White Blood Count 9.7 Red Blood Count 3.73 L Hemoglobin 9.6 L Hematocrit 33.1 L Mean Corpuscular Volume 88.7 Mean Corpuscular Hemoglobin 25.7 L Mean Corpuscular Hemoglobin Concent 29.0 L Red Cell Distribution Width 21.4 H Platelet Count 236 Mean Platelet Volume 9.6 Immature Granulocytes % 0.600 H Neutrophils % 84.1 H Lymphocytes % 3.6 L Monocytes % 6.9 Eosinophils % 4.2 Basophils % 0.6 Nucleated Red Blood Cells % 0.0 Immature Granulocytes # 0.060 H Neutrophils # 8.2 H Lymphocytes # 0.4 L Monocytes # 0.7 Eosinophils # 0.4 Basophils # 0.1 Nucleated Red Blood Cells # 0.0 Sodium Level 137 Potassium Level 4.5 Chloride Level 99 Carbon Dioxide Level 25 Anion Gap 13 Blood Urea Nitrogen 36 #H Creatinine 4.25 #H Est Glomerular Filtrat Rate mL/min Glucose Level 75 Calcium Level 8.9 Medications Medication Current Medications Albumin Human 100 ml @ 100 mls/hr WITH DIALYSIS PRN IV SBP <90 DURING DIALYSIS Last administered on 09/19/18at 11:40; Admin Dose 100 MLS/HR; Start 09/17/18 at 17:30 Acetaminophen (Tylenol Tab) 650 mg BID PRN PO MILD PAIN LEVEL 1-3 Last administered on 09/20/18at 07:49; Admin Dose 650 MG; Start 09/17/18 at 17:30 Atorvastatin Calcium (Lipitor) 20 mg QHS PO Last administered on 09/19/18at 21:07; Admin Dose 20 MG; Start 09/17/18 at 21:00 Clopidogrel Bisulfate (plaVIX) 75 mg DAILY PO Last administered on 09/20/18 08:32; Admin Dose 75 MG; Start 09/18/18 at 09:00 Digoxin (Digoxin) 0.125 mg Q48H PO Last administered on 09/18/18 13:55; Admin Dose 0.125 MG; Start 09/18/18 at 13:00 Diphenhydramine HCl (Benadryl) 25 mg QHS PRN PO ITCHING; Start 09/17/18 at 17:30 Isosorbide Mononitrate (Imdur) 120 mg DAILY PO Last administered on 09/20/18 08:42; Admin Dose 120 MG; Start 09/18/18 at 09:00 Metoprolol Tartrate (Lopressor) 25 mg BID PO Last administered on 09/20/18 08:34; Admin Dose 25 MG; Start 09/17/18 at 21:00 Nitroglycerin (Nitroglycerin (Sl Tab) 0.4 Mg) 1 tab [id number] PRN SL CHEST PAIN; Start 09/17/18 at 17:30 Primidone (Mysoline) 25 mg HS PO Last administered on 09/19/18 21:07; Admin Dose 25 MG; Start 09/17/18 at 21:00 IV Flush (NS 3 ml) 3 ml PER PROTOCOL IV ; Start 09/17/18 at 17:30 Ondansetron HCl (Zofran Inj) 4 mg Q6H PRN IV NAUSEA/VOMITING; Start 09/17/18 at 17:30 Heparin Sodium (Porcine) (Heparin (5000 Units/1ml)) 5,000 unit Q12 SC Last administered on 09/20/18 08:53; Admin Dose 5,000 UNIT; Start 09/17/18 at 21:00 Allopurinol (Zyloprim) 100 mg DAILY PO Last administered on 09/20/18 08:32; Admin Dose 100 MG; Start 09/18/18 at 09:00 Tramadol HCl (Ultram) 50 mg Q12H PRN PO .MOD-SEVERE PAIN Last administered on 09/17/18 19:31; Admin Dose 50 MG; Start 09/17/18 at 18:30 Epoetin Calos-epbx (RETACRIT(esrd)) 10,000 unit MoWeFr@1700 SC Last administered on 09/18/18at 17:35; Admin Dose 10,000 UNIT; Start 09/18/18 at 17:00 Cefepime HCl 50 ml @ 100 mls/hr Q24H IVPB Last administered on 09/19/18at 21:07; Admin Dose 100 MLS/HR; Start 09/18/18 at 20:00 MELLO SAUER MD Sep 20, 2018 13:04
[2018-09-20] MEDS: DIGOXIN 0.125 MG TAB PO SCH (13:23)
--- NOTE | 2018-09-20 17:56 | CONS ---
Assessment/Plan Assessment/Plan Hospital Course (Demo Recall) Hypoxia- acute on chronic systolic heart failure with likely fluid overload, ? PNA as well. fluid mgmt with iHD given ESRD. stable cont medical mgmt. CAD s/p CABG- no cp. NYHA II-III. Pt with ischemic cm on echo with severely reduced lv systolic function EF 25% echo. NYHA stage III. progressive s/p PCI OM3, LCx- ELEUTERIO x 2 12/2015 after NSTEMI. cont imdur/statin/plvx/bb Chronic systolic heart failure- increased to NYHA III-IV type symptoms. cont imdur/bb/ihd h/o TIA- no recurrent sx. on plvx afib- paroxysmal, current nsr. ekg with sinus 1st degree avb twi ESRD on iHD via AVF AMS- wax/waning, improved currently Consultation Date/Type/Reason Admit Date/Time Sep 17, 2018 at 13:18 Initial Consult Date 09/18/18 Type of Consult Cardiology Requesting Provider: MELLO SAUER MD Date/Time of Note DATE: 09/20/18 TIME: 17:52 24 HR Interval Summary Free Text/Dictation pt stable this am, no cp. sob stable on facemask. on bipap earlier. pt is more alert conversant. tele reviewed NSR Detailed Summary Eyes: no complaints ENT: no complaints Respiratory: shortness of breath Cardiovascular: no complaints Exam/Review of Systems Exam Vitals Vital Signs Date Temp Pulse Resp B/P (MAP) Pulse Ox O2 O2 Flow FiO2 Time Delivery Rate 09/20/18 74 16:16 09/20/18 98.7 18 120/57 90 Mask 10.0 15:18 (78) 09/19/18 90 15:47 Intake and Output 09/19/18 09/19/18 09/20/18 1515:00 23:00 07:00 IntakeIntake Total 150 ml 600 ml OutputOutput Total 2800 ml BalanceBalance -2800 ml 150 ml 600 ml Exam GENERAL: alert more oriented HEENT: OP clear, R eye subconj hem, no swelling. + JVD, no bruit LUNGS: He has bilateral inspiratory and expiratory wheezes. decrease bs r base HEART:RRR nl s1s2, iii/vi systolic LLSB ABDOMEN: Soft, nontender, no masses EXTREMITIES: No peripheral edema. bruises bue NEUROLOGIC non focal Results Result Diagram: 09/20/18 0635 09/20/18 0635 Results 24hrs Laboratory Tests Test 09/19/18 21:06 09/20/18 06:35 09/20/18 06:42 Bedside Glucose 63 L 81 White Blood Count 9.7 Red Blood Count 3.73 L Hemoglobin 9.6 L Hematocrit 33.1 L Mean Corpuscular Volume 88.7 Mean Corpuscular Hemoglobin 25.7 L Mean Corpuscular Hemoglobin Concent 29.0 L Red Cell Distribution Width 21.4 H Platelet Count 236 Mean Platelet Volume 9.6 Immature Granulocytes % 0.600 H Neutrophils % 84.1 H Lymphocytes % 3.6 L Monocytes % 6.9 Eosinophils % 4.2 Basophils % 0.6 Nucleated Red Blood Cells % 0.0 Immature Granulocytes # 0.060 H Neutrophils # 8.2 H Lymphocytes # 0.4 L Monocytes # 0.7 Eosinophils # 0.4 Basophils # 0.1 Nucleated Red Blood Cells # 0.0 Sodium Level 137 Potassium Level 4.5 Chloride Level 99 Carbon Dioxide Level 25 Anion Gap 13 Blood Urea Nitrogen 36 #H Creatinine 4.25 #H Est Glomerular Filtrat Rate mL/min Glucose Level 75 Calcium Level 8.9 Medications Medication Current Medications Albumin Human 100 ml @ 100 mls/hr WITH DIALYSIS PRN IV SBP <90 DURING DIALYSIS Last administered on 09/19/18 11:40; Admin Dose 100 MLS/HR; Start 09/17/18 at 17:30 Acetaminophen (Tylenol Tab) 650 mg BID PRN PO MILD PAIN LEVEL 1-3 Last administered on 09/20/18 07:49; Admin Dose 650 MG; Start 09/17/18 at 17:30 Atorvastatin Calcium (Lipitor) 20 mg QHS PO Last administered on 09/19/18 21:07; Admin Dose 20 MG; Start 09/17/18 at 21:00 Clopidogrel Bisulfate (plaVIX) 75 mg DAILY PO Last administered on 09/20/18 08:32; Admin Dose 75 MG; Start 09/18/18 at 09:00 Digoxin (Digoxin) 0.125 mg Q48H PO Last administered on 09/20/18 13:23; Admin Dose 0.125 MG; Start 09/18/18 at 13:00 Diphenhydramine HCl (Benadryl) 25 mg QHS PRN PO ITCHING; Start 09/17/18 at 17:30 Isosorbide Mononitrate (Imdur) 120 mg DAILY PO Last administered on 09/20/18 08:42; Admin Dose 120 MG; Start 09/18/18 at 09:00 Metoprolol Tartrate (Lopressor) 25 mg BID PO Last administered on 09/20/18 08:34; Admin Dose 25 MG; Start 09/17/18 at 21:00 Nitroglycerin (Nitroglycerin (Sl Tab) 0.4 Mg) 1 tab [id number] PRN SL CHEST PAIN; Start 09/17/18 at 17:30 Primidone (Mysoline) 25 mg HS PO Last administered on 09/19/18 21:07; Admin Dose 25 MG; Start 09/17/18 at 21:00 IV Flush (NS 3 ml) 3 ml PER PROTOCOL IV ; Start 09/17/18 at 17:30 Ondansetron HCl (Zofran Inj) 4 mg Q6H PRN IV NAUSEA/VOMITING; Start 09/17/18 at 17:30 Heparin Sodium (Porcine) (Heparin (5000 Units/1ml)) 5,000 unit Q12 SC Last administered on 09/20/18 08:53; Admin Dose 5,000 UNIT; Start 09/17/18 at 21:00 Allopurinol (Zyloprim) 100 mg DAILY PO Last administered on 09/20/18 08:32; Admin Dose 100 MG; Start 09/18/18 at 09:00 Tramadol HCl (Ultram) 50 mg Q12H PRN PO .MOD-SEVERE PAIN Last administered on 09/17/18 19:31; Admin Dose 50 MG; Start 09/17/18 at 18:30 Epoetin Calos-epbx (RETACRIT(esrd)) 10,000 unit MoWeFr@1700 SC Last administered on 09/18/18 17:35; Admin Dose 10,000 UNIT; Start 09/18/18 at 17:00 Cefepime HCl 50 ml @ 100 mls/hr Q24H IVPB Last administered on 09/19/18 21:07; Admin Dose 100 MLS/HR; Start 09/18/18 at 20:00 MARTINE ELLINGTON Sep 20, 2018 17:56
[2018-09-20] MEDS: EPOETIN ALFA-EPBX (ESRD) 10,000 UNIT/ML VIAL SC SCH (18:02)
[2018-09-20] MEDS ORDERED: VANCOMYCIN 1 GM 250 ML IVPB SCH (20:00)
[2018-09-20] MEDS: CEFEPIME 1GM/50 ML IVPB SCH (21:44)
[2018-09-20] MEDS: ATORVASTATIN 20 MG TAB PO SCH (21:44)
[2018-09-20] MEDS: PRIMIDONE 50 MG TAB PO SCH (21:52)
[2018-09-21] VITALS (31 sets, daily range): BP systolic 89–142; BP diastolic 46–67; PULSE 64–91; RESP 16–26
[2018-09-21] MEDS: CEFEPIME 1GM/50 ML IVPB SCH ×2 (00:23→20:17)
[2018-09-21] MEDS: ACETAMINOPHEN 325 MG TAB PO PRN (07:50)
[2018-09-21] MEDS: traMADol 50 MG TAB PO PRN (08:12)
[2018-09-21] MEDS: ISOSORBIDE MONONITRATE(SR)60 MG TAB PO SCH (08:17)
[2018-09-21] MEDS: METOPROLOL 25 MG TAB PO SCH ×2 (08:18→20:17)
[2018-09-21] MEDS: CLOPIDOGREL 75 MG TAB PO SCH (08:19)
[2018-09-21] MEDS: ALLOPURINOL 100 MG TAB PO SCH (08:19)
[2018-09-21] MEDS: HEPARIN 5,000 UNIT/1 ML VIAL SC SCH ×2 (08:26→20:19)
--- NOTE | 2018-09-21 08:35 | CONS ---
Assessment/Plan Assessment/Plan Problems: (1) Healthcare-associated pneumonia Status: Acute Comment: on abx (2) Hypoxia Status: Acute Comment: now on Bipap (3) End stage renal disease Status: Chronic Comment: for HD.. jaycob Shah UF today Consultation Date/Type/Reason Admit Date/Time Sep 17, 2018 at 13:18 Type of Consult Nephrology Date/Time of Note DATE: 09/21/18 TIME: 08:33 Hx of Present Illness about to start HD... on BiPaP...says no sob Exam/Review of Systems Vital Signs Vitals Vital Signs Date Temp Pulse Resp B/P (MAP) Pulse Ox O2 O2 Flow FiO2 Time Delivery Rate 09/21/18 88 08:03 09/21/18 93 BIPAP 08:02 09/21/18 98.0 126/56 15.0 07:55 (79) 09/21/18 21 07:21 09/21/18 70 02:20 Intake and Output 09/20/18 09/20/18 09/21/18 1515:00 23:00 07:00 IntakeIntake Total 200 ml 300 ml BalanceBalance 200 ml 300 ml Exam Constitutional: alert Psych: no complaints Neck: supple Respiratory: crackles/rales (bases) Cardiovascular: regular rate and rhythm Gastrointestinal: soft, nl liver, spleen Labs Result Diagram: 09/20/1863409/20/1835 Medications Medications Current Medications Albumin Human 100 ml @ 100 mls/hr WITH DIALYSIS PRN IV SBP <90 DURING DIALYSIS Last administered on 09/19/18at 11:40; Admin Dose 100 MLS/HR; Start 09/17/18 at 17:30 Acetaminophen (Tylenol Tab) 650 mg BID PRN PO MILD PAIN LEVEL 1-3 Last administered on 09/21/18at 07:50; Admin Dose 650 MG; Start 09/17/18 at 17:30 Atorvastatin Calcium (Lipitor) 20 mg QHS PO Last administered on 09/20/18at 21:44; Admin Dose 20 MG; Start 09/17/18 at 21:00 Clopidogrel Bisulfate (plaVIX) 75 mg DAILY PO Last administered on 09/21/18at 08:19; Admin Dose 75 MG; Start 09/18/18 at 09:00 Digoxin (Digoxin) 0.125 mg Q48H PO Last administered on 09/20/18at 13:23; Admin Dose 0.125 MG; Start 09/18/18 at 13:00 Diphenhydramine HCl (Benadryl) 25 mg QHS PRN PO ITCHING; Start 09/17/18 at 17:30 Isosorbide Mononitrate (Imdur) 120 mg DAILY PO Last administered on 09/20/18 08:42; Admin Dose 120 MG; Start 09/18/18 at 09:00 Metoprolol Tartrate (Lopressor) 25 mg BID PO Last administered on 09/20/18 21:53; Admin Dose 25 MG; Start 09/17/18 at 21:00 Nitroglycerin (Nitroglycerin (Sl Tab) 0.4 Mg) 1 tab [id number] PRN SL CHEST PAIN; Start 09/17/18 at 17:30 Primidone (Mysoline) 25 mg HS PO Last administered on 09/20/18 21:52; Admin Dose 25 MG; Start 09/17/18 at 21:00 IV Flush (NS 3 ml) 3 ml PER PROTOCOL IV ; Start 09/17/18 at 17:30 Ondansetron HCl (Zofran Inj) 4 mg Q6H PRN IV NAUSEA/VOMITING; Start 09/17/18 at 17:30 Heparin Sodium (Porcine) (Heparin (5000 Units/1ml)) 5,000 unit Q12 SC Last administered on 09/21/18 08:26; Admin Dose 5,000 UNIT; Start 09/17/18 at 21:00 Allopurinol (Zyloprim) 100 mg DAILY PO Last administered on 09/21/18 08:19; Admin Dose 100 MG; Start 09/18/18 at 09:00 Tramadol HCl (Ultram) 50 mg Q12H PRN PO .MOD-SEVERE PAIN Last administered on 09/21/18 08:12; Admin Dose 50 MG; Start 09/17/18 at 18:30 Epoetin Calos-epbx (RETACRIT(esrd)) 10,000 unit MoWeFr@1700 SC Last administered on 09/20/18 18:02; Admin Dose 10,000 UNIT; Start 09/18/18 at 17:00 Cefepime HCl 50 ml @ 100 mls/hr Q24H IVPB Last administered on 09/21/18 00:23; Admin Dose 100 MLS/HR; Start 09/18/18 at 20:00 ULISES FOREMAN MD Sep 21, 2018 08:35
[2018-09-21] MEDS: ALBUMIN HUMAN 25% 100 ML IV PRN (09:46)
[2018-09-21] MEDS: LORAZEPAM 2 MG INJ IV ONE ×2 (10:52→13:31)
--- NOTE | 2018-09-21 16:09 | PN ---
Date/Time of Note Date/Time of Note DATE: 09/21/18 TIME: 15:59 Assessment/Plan VTE Prophylaxis Risk score (from Ns)>0 risk: 5 SCD applied (from Ns): Yes Pharmacological prophylaxis: heparin Lines/Catheters IV [facility] Saline Lock Urinary Cath still in place: No Assessment/Plan Problems: (1) End stage renal disease Status: Chronic Comment: s/p hemodialysis with removal of 1 1/2 liters of fluid (2) Hypertension Status: Chronic Comment: decent control (3) CAD (coronary artery disease) Status: Chronic Comment: No acute issues. Low EF. (4) Peripheral vascular disease Status: Chronic (5) Paroxysmal atrial fibrillation Status: Chronic Comment: sinus rhythm at this time (6) Hypoxia Status: Acute Comment: Intermittent drops in O2 saturations that improve with high flow mask or BiPAP. Some improvement after removal of fluid with HD. (7) Healthcare-associated pneumonia Status: Acute Comment: cultures negative. antibiotics have been discontinued Result Diagram: 09/20/1835 09/20/18 0635 Subjective 24 Hr Interval Summary Free Text/Dictation This morning patient in physical distress and discomfort despite analgesic medication. Unable to get comfortable. Desaturating and not tolerating high flow O2 mask. These symptoms improved after hemodialysis. Feeling much better at this time. Exam/Review of Systems Exam Vitals Vital Signs Date Temp Pulse Resp B/P (MAP) Pulse Ox O2 O2 Flow FiO2 Time Delivery Rate 09/21/18 98.2 74 22 136/62 100 15:43 (86) 09/21/18 100 15:30 09/21/18 BIPAP 11:30 09/21/18 15.0 07:55 Intake and Output 09/20/18 09/20/18 09/21/18 1515:00 23:00 07:00 IntakeIntake Total 200 ml 300 ml BalanceBalance 200 ml 300 ml Exam Daughter at bedside. Constitutional: alert, oriented Neck: supple Respiratory: diminished breath sounds (at bases), wheezing (some wheezing) Cardiovascular: regular rate and rhythm Gastrointestinal: soft Musculoskeletal: other (cold to the touch and slightly discolored) Extremities: normal pulses Medications Medication Current Medications Albumin Human 100 ml @ 100 mls/hr WITH DIALYSIS PRN IV SBP <90 DURING DIALYSIS Last administered on 09/21/18at 09:46; Admin Dose 100 MLS/HR; Start 4/9/19 at 17:30 Acetaminophen (Tylenol Tab) 650 mg BID PRN PO MILD PAIN LEVEL 1-3 Last administered on 09/21/18 07:50; Admin Dose 650 MG; Start 09/17/18 at 17:30 Atorvastatin Calcium (Lipitor) 20 mg QHS PO Last administered on 09/20/18 21:44; Admin Dose 20 MG; Start 09/17/18 at 21:00 Clopidogrel Bisulfate (plaVIX) 75 mg DAILY PO Last administered on 09/21/18 08:19; Admin Dose 75 MG; Start 09/18/18 at 09:00 Digoxin (Digoxin) 0.125 mg Q48H PO Last administered on 09/20/18 13:23; Admin Dose 0.125 MG; Start 09/18/18 at 13:00 Diphenhydramine HCl (Benadryl) 25 mg QHS PRN PO ITCHING; Start 09/17/18 at 17:30 Isosorbide Mononitrate (Imdur) 120 mg DAILY PO Last administered on 09/20/18 08:42; Admin Dose 120 MG; Start 09/18/18 at 09:00 Metoprolol Tartrate (Lopressor) 25 mg BID PO Last administered on 09/20/18 21:53; Admin Dose 25 MG; Start 09/17/18 at 21:00 Nitroglycerin (Nitroglycerin (Sl Tab) 0.4 Mg) 1 tab [id number] PRN SL CHEST PAIN; Start 09/17/18 at 17:30 Primidone (Mysoline) 25 mg HS PO Last administered on 09/20/18 21:52; Admin Dose 25 MG; Start 09/17/18 at 21:00 IV Flush (NS 3 ml) 3 ml PER PROTOCOL IV ; Start 09/17/18 at 17:30 Ondansetron HCl (Zofran Inj) 4 mg Q6H PRN IV NAUSEA/VOMITING; Start 09/17/18 at 17:30 Heparin Sodium (Porcine) (Heparin (5000 Units/1ml)) 5,000 unit Q12 SC Last administered on 09/21/18 08:26; Admin Dose 5,000 UNIT; Start 09/17/18 at 21:00 Allopurinol (Zyloprim) 100 mg DAILY PO Last administered on 09/21/18 08:19; Admin Dose 100 MG; Start 09/18/18 at 09:00 Tramadol HCl (Ultram) 50 mg Q12H PRN PO .MOD-SEVERE PAIN Last administered on 09/21/18 08:12; Admin Dose 50 MG; Start 09/17/18 at 18:30 Epoetin Calos-epbx (RETACRIT(esrd)) 10,000 unit MoWeFr@1700 SC Last administered on 09/20/18 18:02; Admin Dose 10,000 UNIT; Start 09/18/18 at 17:00 Cefepime HCl 50 ml @ 100 mls/hr Q24H IVPB Last administered on 09/21/18 00:23; Admin Dose 100 MLS/HR; Start 09/18/18 at 20:00 FRANDY DAVALOS MD Sep 21, 2018 16:09
[2018-09-21] MEDS ORDERED: MAGNESIUM HYDROXIDE 30ML CUP PO PRN (20:00)
[2018-09-21] MEDS: ATORVASTATIN 20 MG TAB PO SCH (20:17)
[2018-09-21] MEDS: PRIMIDONE 50 MG TAB PO SCH (20:18)
[2018-09-22] VITALS (13 sets, daily range): BP systolic 92–120; BP diastolic 49–59; PULSE 55–76; RESP 19–22
[2018-09-22] MEDS: ACETAMINOPHEN 325 MG TAB PO PRN (04:27)
[2018-09-22] MEDS: traMADol 50 MG TAB PO PRN (05:27)
[2018-09-22] MEDS: ALLOPURINOL 100 MG TAB PO SCH (08:46)
[2018-09-22] MEDS: ISOSORBIDE MONONITRATE(SR)60 MG TAB PO SCH (08:46)
[2018-09-22] MEDS: CLOPIDOGREL 75 MG TAB PO SCH (08:46)
[2018-09-22] MEDS: METOPROLOL 25 MG TAB PO SCH ×2 (08:47→21:15)
[2018-09-22] MEDS: HEPARIN 5,000 UNIT/1 ML VIAL SC SCH ×2 (08:53→21:12)
--- NOTE | 2018-09-22 08:56 | CONS ---
Assessment/Plan Assessment/Plan Problems: (1) Healthcare-associated pneumonia Status: Acute Comment: seems improved on current Rx.. afeb... no further leukocytosis (2) End stage renal disease Status: Chronic Comment: well kalani.. on less O2.. is comfortable currently Consultation Date/Type/Reason Admit Date/Time Sep 17, 2018 at 13:18 Type of Consult Nephrology Date/Time of Note DATE: 09/22/18 TIME: 08:53 Hx of Present Illness better today.. on Vapotherm.. no sob or cp Exam/Review of Systems Vital Signs Vitals Vital Signs Date Temp Pulse Resp B/P (MAP) Pulse Ox O2 O2 Flow FiO2 Time Delivery Rate 09/22/18 65 20 96 90 08:49 09/22/18 98.2 113/57 High Flow 07:22 (75) 09/21/18 15.0 08:00 Intake and Output 09/21/18 09/21/18 09/22/18 1414:59 22:59 06:59 IntakeIntake Total 250 ml 650 ml 750 ml OutputOutput Total 2500 ml BalanceBalance -2250 ml 650 ml 750 ml Exam Constitutional: alert, oriented Psych: no complaints Head: normocephalic Neck: supple Respiratory: clear to auscultation Cardiovascular: regular rate and rhythm Gastrointestinal: soft Labs Result Diagram: 09/20/1835 09/20/1835 Results 24hrs Laboratory Tests Test 09/21/18 20:30 Blood Gas Specimen Source Blood arterial Arterial Blood Date Drawn 09/21/2018 8:30:04 PM Arterial Blood pH (Temp corrected) 7.417 Arterial Blood pCO2 (Temp correct) 43.1 Arterial Blood pO2 (Temp corrected) 74.0 L Arterial Blood HCO3 27.1 H Arterial Blood Base Excess 2.3 Arterial Blood Oxygen Saturation 94.6 L Dom Test ACCEPTAB Arterial Blood Gas Puncture Site Left Radial Arterial Blood Carboxyhemoglobin 0.3 Arterial Blood Methemoglobin 0.3 Blood Gas A-a O2 Differential 595.9 H Oxyhemoglobin Percent 94.0 Blood Gas Temperature 37.0 Blood Gas Modality HFNC FiO2 100.0 Blood Gas Notified Whom UP Blood Gas Notified Time 09/21/2018 8:46:09 PM Medications Medications Current Medications Albumin Human 100 ml @ 100 mls/hr WITH DIALYSIS PRN IV SBP <90 DURING DIALYSIS Last administered on 09/21/18 09:46; Admin Dose 100 MLS/HR; Start 09/17/18 at 17:30 Acetaminophen (Tylenol Tab) 650 mg BID PRN PO MILD PAIN LEVEL 1-3 Last administered on 09/22/18 04:27; Admin Dose 650 MG; Start 09/17/18 at 17:30 Atorvastatin Calcium (Lipitor) 20 mg QHS PO Last administered on 09/21/18 20:17; Admin Dose 20 MG; Start 09/17/18 at 21:00 Clopidogrel Bisulfate (plaVIX) 75 mg DAILY PO Last administered on 09/21/18 08:19; Admin Dose 75 MG; Start 09/18/18 at 09:00 Digoxin (Digoxin) 0.125 mg Q48H PO Last administered on 09/20/18 13:23; Admin Dose 0.125 MG; Start 09/18/18 at 13:00 Diphenhydramine HCl (Benadryl) 25 mg QHS PRN PO ITCHING; Start 09/17/18 at 17:30 Isosorbide Mononitrate (Imdur) 120 mg DAILY PO Last administered on 09/20/18 08:42; Admin Dose 120 MG; Start 09/18/18 at 09:00 Metoprolol Tartrate (Lopressor) 25 mg BID PO Last administered on 09/21/18 20:17; Admin Dose 25 MG; Start 09/17/18 at 21:00 Nitroglycerin (Nitroglycerin (Sl Tab) 0.4 Mg) 1 tab [id number] PRN SL CHEST PAIN; Start 09/17/18 at 17:30 Primidone (Mysoline) 25 mg HS PO Last administered on 09/21/18 20:18; Admin Dose 25 MG; Start 09/17/18 at 21:00 IV Flush (NS 3 ml) 3 ml PER PROTOCOL IV ; Start 09/17/18 at 17:30 Ondansetron HCl (Zofran Inj) 4 mg Q6H PRN IV NAUSEA/VOMITING; Start 09/17/18 at 17:30 Heparin Sodium (Porcine) (Heparin (5000 Units/1ml)) 5,000 unit Q12 SC Last administered on 09/21/18 20:19; Admin Dose 5,000 UNIT; Start 09/17/18 at 21:00 Allopurinol (Zyloprim) 100 mg DAILY PO Last administered on 09/21/18at 08:19; Admin Dose 100 MG; Start 09/18/18 at 09:00 Tramadol HCl (Ultram) 50 mg Q12H PRN PO .MOD-SEVERE PAIN Last administered on 09/22/18at 05:27; Admin Dose 50 MG; Start 09/17/18 at 18:30 Epoetin Calos-epbx (RETACRIT(esrd)) 10,000 unit MoWeFr@1700 SC Last administered on 09/20/18at 18:02; Admin Dose 10,000 UNIT; Start 09/18/18 at 17:00 Cefepime HCl 50 ml @ 100 mls/hr Q24H IVPB Last administered on 09/21/18at 20:17; Admin Dose 100 MLS/HR; Start 09/18/18 at 20:00 Magnesium Hydroxide (Milk Of Mag) 30 ml DAILY PRN PO CONSTIPATION Last administered on 09/21/18at 20:34; Admin Dose 30 ML; Start 09/21/18 at 20:00 ULISES FOREMAN MD Sep 22, 2018 08:56
--- NOTE | 2018-09-22 10:28 | CONS ---
Assessment/Plan Assessment/Plan Hospital Course (Demo Recall) Hypoxia- acute on chronic systolic heart failure with likely fluid overload, ? PNA as well. fluid mgmt with iHD given ESRD. stable cont medical mgmt. stable w improved resp status CAD s/p CABG- no cp. NYHA II-III. Pt with ischemic cm on echo with severely reduced lv systolic function EF 25% echo. NYHA stage III. progressive s/p PCI OM3, LCx- ELEUTERIO x 2 12/2015 after NSTEMI. cont imdur/statin/plvx/bb Chronic systolic heart failure- increased to NYHA III-IV type symptoms. cont imdur/bb/ihd h/o TIA- no recurrent sx. on plvx afib- paroxysmal, current nsr. ekg with sinus 1st degree avb twi ESRD on iHD via AVF AMS- wax/waning, improved currently Consultation Date/Type/Reason Admit Date/Time Sep 17, 2018 at 13:18 Initial Consult Date 09/18/18 Type of Consult Cardiology Requesting Provider: MELLO SAUER MD Date/Time of Note DATE: 09/22/18 TIME: 10:21 24 HR Interval Summary Free Text/Dictation no acute events. on high flow o2. states breath ing stable. no cp/pressure. no dizziness. alert/oriented, but fatigued tele reviewed sinus Detailed Summary Eyes: no complaints ENT: no complaints Respiratory: shortness of breath Cardiovascular: no complaints Exam/Review of Systems Exam Vitals Vital Signs Date Temp Pulse Resp B/P (MAP) Pulse Ox O2 O2 Flow FiO2 Time Delivery Rate 09/22/18 100 09:45 09/22/18 65 20 96 08:49 09/22/18 98.2 113/57 High Flow 07:22 (75) 09/21/18 15.0 08:00 Intake and Output 09/21/18 09/21/18 09/22/18 1515:00 23:00 07:00 IntakeIntake Total 650 ml 750 ml OutputOutput Total 2500 ml BalanceBalance -2500 ml 650 ml 750 ml Exam GENERAL: alert more oriented HEENT: OP clear, R eye subconj hem, no swelling. + JVD, no bruit LUNGS: He has bilateral inspiratory and expiratory wheezes. decrease bs r base HEART:RRR nl s1s2, iii/vi systolic LLSB ABDOMEN: Soft, nontender, no masses EXTREMITIES: No peripheral edema. bruises bue NEUROLOGIC non focal Results Result Diagram: 09/20/18 0635 09/20/18 0635 Results 24hrs Laboratory Tests Test 09/21/18 20:30 Blood Gas Specimen Source Blood arterial Arterial Blood Date Drawn 09/21/2018 8:30:04 PM Arterial Blood pH (Temp corrected) 7.417 Arterial Blood pCO2 (Temp correct) 43.1 Arterial Blood pO2 (Temp corrected) 74.0 L Arterial Blood HCO3 27.1 H Arterial Blood Base Excess 2.3 Arterial Blood Oxygen Saturation 94.6 L Dom Test ACCEPTAB Arterial Blood Gas Puncture Site Left Radial Arterial Blood Carboxyhemoglobin 0.3 Arterial Blood Methemoglobin 0.3 Blood Gas A-a O2 Differential 595.9 H Oxyhemoglobin Percent 94.0 Blood Gas Temperature 37.0 Blood Gas Modality HFNC FiO2 100.0 Blood Gas Notified Whom UP Blood Gas Notified Time 09/21/2018 8:46:09 PM Medications Medication Current Medications Albumin Human 100 ml @ 100 mls/hr WITH DIALYSIS PRN IV SBP <90 DURING DIALYSIS Last administered on 09/21/18 09:46; Admin Dose 100 MLS/HR; Start 09/17/18 at 17:30 Acetaminophen (Tylenol Tab) 650 mg BID PRN PO MILD PAIN LEVEL 1-3 Last ad ministered on 09/22/18 04:27; Admin Dose 650 MG; Start 09/17/18 at 17:30 Atorvastatin Calcium (Lipitor) 20 mg QHS PO Last administered on 09/21/18 20:17; Admin Dose 20 MG; Start 09/17/18 at 21:00 Clopidogrel Bisulfate (plaVIX) 75 mg DAILY PO Last administered on 09/22/18 08:46; Admin Dose 75 MG; Start 09/18/18 at 09:00 Digoxin (Digoxin) 0.125 mg Q48H PO Last administered on 09/20/18 13:23; Admin Dose 0.125 MG; Start 09/18/18 at 13:00 Diphenhydramine HCl (Benadryl) 25 mg QHS PRN PO ITCHING; Start 09/17/18 at 17:30 Isosorbide Mononitrate (Imdur) 120 mg DAILY PO Last administered on 09/22/18 08:46; Admin Dose 120 MG; Start 09/18/18 at 09:00 Metoprolol Tartrate (Lopressor) 25 mg BID PO Last administered on 09/22/18 08:47; Admin Dose 25 MG; Start 09/17/18 at 21:00 Nitroglycerin (Nitroglycerin (Sl Tab) 0.4 Mg) 1 tab [id number] PRN SL CHEST PAIN; Start 09/17/18 at 17:30 Primidone (Mysoline) 25 mg HS PO Last administered on 09/21/18 20:18; Admin Dose 25 MG; Start 09/17/18 at 21:00 IV Flush (NS 3 ml) 3 ml PER PROTOCOL IV ; Start 09/17/18 at 17:30 Ondansetron HCl (Zofran Inj) 4 mg Q6H PRN IV NAUSEA/VOMITING; Start 09/17/18 at 17:30 Heparin Sodium (Porcine) (Heparin (5000 Units/1ml)) 5,000 unit Q12 SC Last administered on 09/22/18 08:53; Admin Dose 5,000 UNIT; Start 09/17/18 at 21:00 Allopurinol (Zyloprim) 100 mg DAILY PO Last administered on 09/22/18 08:46; Admin Dose 100 MG; Start 09/18/18 at 09:00 Tramadol HCl (Ultram) 50 mg Q12H PRN PO .MOD-SEVERE PAIN Last administered on 09/22/18 05:27; Admin Dose 50 MG; Start 09/17/18 at 18:30 Epoetin Calos-epbx (RETACRIT(esrd)) 10,000 unit MoWeFr@1700 SC Last administered on 09/20/18 18:02; Admin Dose 10,000 UNIT; Start 09/18/18 at 17:00 Cefepime HCl 50 ml @ 100 mls/hr Q24H IVPB Last administered on 09/21/18 20:17; Admin Dose 100 MLS/HR; Start 09/18/18 at 20:00 Magnesium Hydroxide (Milk Of Mag) 30 ml DAILY PRN PO CONSTIPATION Last administered on 09/21/18 20:34; Admin Dose 30 ML; Start 09/21/18 at 20:00 MARTINE ELLINGTON Sep 22, 2018 10:28
--- NOTE | 2018-09-22 13:28 | CONS ---
DATE OF ADMISSION: 09/17/2018 DATE OF CONSULTATION: TYPE OF CONSULTATION: Pulmonary. REASON FOR CONSULTATION: Respiratory distress. Thank you, Dr. Peralta, for this consultation. HISTORY OF PRESENT ILLNESS: This is an elderly gentleman originally admitted on 09/17/2018 for incre asing shortness of breath, orthopnea, PND and found to have increasing and persistent right-sided inf iltrate and since that time has been on combination of bilevel ventilation and now on high flow O2. He has had leukocytosis too. In addition, the patient has a history of end-stage renal failure on he modialysis for the past 6 years following coronary artery bypass graft surgery at that time. The pat ient is normally a resident of shelter facility. PAST MEDICAL HISTORY: Coronary artery bypass graft surgery, end-stage renal failure on hemodialysis, essential hypertension. SOCIAL HISTORY: He has a remote tobacco history. No history of inhalational lung injury. The patie nt worked in [employer] in the past. DIAGNOSTIC DATA: Recent echocardiogram demonstrates severely reduced ejection fraction of approximat devon 25%. PHYSICAL EXAMINATION: GENERAL: Elderly-appearing gentleman, opens eyes, talks in full and complete sentences. VITAL SIGNS: Currently afebrile, pulse is 66, blood pressure 103/54, O2 saturation 90% on 100% FiO2. NECK: Supple. No JVD or lymphadenopathy. CARDIAC: S1, S2. No added sounds or murmurs. CHEST: Diminished air entry with rhonchi, right side greater than the left. ABDOMEN: Soft, nontender. No guarding or rebound. EXTREMITIES: No cyanosis, clubbing. A 2+ edema. NEUROLOGIC: Generalized weakness. LABORATORY DATA: White count 9.3, hemoglobin 9.6, platelets of 236. BUN 36, creatinine 4.25. INR w as 1.1. DIAGNOSTIC DATA: Chest x-ray was reviewed, which showed persistent bilateral effusions with atelecta sis, right side greater than left. IMPRESSION AND PLAN: Persistent hypoxemic respiratory failure, likely secondary to combination of vo lume overload, alveolar hypoventilation with atelectasis and ongoing congestive cardiac failure. The patient may also have a component of recurrent aspiration. I will recommend: 1. Continuous high flow O2. 2. Aspiration precautions. 3. Hemodialysis with more volume removal. 4. Ultrasound of the chest for possible thoracentesis. 5. Continue with DNR status. Dictated By: HUMA NICHOLAS MD SV/NTS Conf#: [id number] [facility]#: [id number] CC: SAMUEL ABRAMS MD; JANETH SHEPARD MD;*EndCC*
[2018-09-22] MEDS: DIGOXIN 0.125 MG TAB PO SCH (13:48)
--- NOTE | 2018-09-22 20:20 | PN ---
Date/Time of Note Date/Time of Note DATE: 09/22/18 TIME: 20:15 Assessment/Plan VTE Prophylaxis Risk score (from Ns)>0 risk: 7 SCD applied (from Ns): Yes Pharmacological prophylaxis: heparin Lines/Catheters IV C[facility]ter [facility]from [facility] [place] Urinary Cath still in place: No Assessment/Plan Problems: (1) Hypertension Status: Chronic Comment: STABLE CONTROL TODAY (2) Paroxysmal atrial fibrillation Status: Chronic Comment: SINUS RHYTHM AT PRESENT (3) Hypoxia Status: Acute Comment: ON HIGH FLOW O2. APPREARS TO BE MORE CONSISTENT WITH PULMONARY EDEMA AND NOT PNA (4) Systolic CHF with reduced left ventricular function, NYHA class 3 Status: Chronic Comment: EF SIGNIFICANTLY IMPAIRED (5) End stage renal disease Status: Chronic Comment: HD PER NEPHROLOGY Result Diagram: 09/20/18 0635 09/20/18 0635 Results 24hrs Laboratory Tests Test 09/21/18 20:30 09/22/18 13:00 Blood Gas Specimen Source Blood arterial Blood arterial Arterial Blood Date Drawn 09/21/2018 8:30:04 PM 09/22/2018 12:50:35 PM Arterial Blood pH (Temp corrected) 7.417 7.435 Arterial Blood pCO2 (Temp correct) 43.1 44.5 Arterial Blood pO2 (Temp corrected) 74.0 L 64.7 L Arterial Blood HCO3 27.1 H 29.2 H Arterial Blood Base Excess 2.3 4.5 H Arterial Blood Oxygen Saturation 94.6 L 92.5 L Dom Test ACCEPTAB ACCEPTAB Arterial Blood Gas Puncture Site Left Radial Left Radial Arterial Blood Carboxyhemoglobin 0.3 0.6 Arterial Blood Methemoglobin 0.3 0.3 Blood Gas A-a O2 Differential 595.9 H 603.8 H Oxyhemoglobin Percent 94.0 91.7 L Blood Gas Temperature 37.0 37.0 Blood Gas Modality HFNC HFNC FiO2 100.0 100.0 Blood Gas Notified Whom UP CW Blood Gas Notified Time 09/21/2018 8:46:09 PM 09/22/2018 1:09:30 PM Subjective 24 Hr Interval Summary Free Text/Dictation TODAY COMPLAINS OF LEG AND KNEE PAIN. Exam/Review of Systems Exam Vitals Vital Signs Date Temp Pulse Resp B/P (MAP) Pulse Ox O2 O2 Flow FiO2 Time Delivery Rate 09/22/18 97.8 73 22 101/53 96 High Flow 19:57 (69) 09/22/18 100 16:30 09/21/18 15.0 08:00 Intake and Output 09/21/18 09/21/18 09/22/18 1515:00 23:00 07:00 IntakeIntake Total 650 ml 750 ml OutputOutput Total 2500 ml BalanceBalance -2500 ml 650 ml 750 ml Exam FAMILY AT BEDSIDE Constitutional: alert (BUT EASILY FALLS ASLEEP ), oriented (WHEN AWAKE) Neck: supple Respiratory: crackles/rales, diminished breath sounds (AT BASES) Cardiovascular: regular rate and rhythm Gastrointestinal: soft Musculoskeletal: nl extremities to inspection Extremities: edema (NONE) Results Results 24hrs Laboratory Tests Test 09/21/18 20:30 09/22/18 13:00 Blood Gas Specimen Source Blood arterial Blood arterial Arterial Blood Date Drawn 09/21/2018 8:30:04 PM 09/22/2018 12:50:35 PM Arterial Blood pH (Temp corrected) 7.417 7.435 Arterial Blood pCO2 (Temp correct) 43.1 44.5 Arterial Blood pO2 (Temp corrected) 74.0 L 64.7 L Arterial Blood HCO3 27.1 H 29.2 H Arterial Blood Base Excess 2.3 4.5 H Arterial Blood Oxygen Saturation 94.6 L 92.5 L Dom Test ACCEPTAB ACCEPTAB Arterial Blood Gas Puncture Site Left Radial Left Radial Arterial Blood Carboxyhemoglobin 0.3 0.6 Arterial Blood Methemoglobin 0.3 0.3 Blood Gas A-a O2 Differential 595.9 H 603.8 H Oxyhemoglobin Percent 94.0 91.7 L Blood Gas Temperature 37.0 37.0 Blood Gas Modality HFNC HFNC FiO2 100.0 100.0 Blood Gas Notified Whom UP CW Blood Gas Notified Time 09/21/2018 8:46:09 PM 09/22/2018 1:09:30 PM Medications Medication Current Medications Albumin Human 100 ml @ 100 mls/hr WITH DIALYSIS PRN IV SBP <90 DURING DIALYSIS Last administered on 09/21/18at 09:46; Admin Dose 100 MLS/HR; Start 09/17/18 at 17:30 Acetaminophen (Tylenol Tab) 650 mg BID PRN PO MILD PAIN LEVEL 1-3 Last administered on 09/22/18at 04:27; Admin Dose 650 MG; Start 09/17/18 at 17:30 Atorvastatin Calcium (Lipitor) 20 mg QHS PO Last administered on 09/21/18 20:17; Admin Dose 20 MG; Start 09/17/18 at 21:00 Clopidogrel Bisulfate (plaVIX) 75 mg DAILY PO Last administered on 09/22/18 08:46; Admin Dose 75 MG; Start 09/18/18 at 09:00 Digoxin (Digoxin) 0.125 mg Q48H PO Last administered on 09/22/18 13:48; Admin Dose 0.125 MG; Start 09/18/18 at 13:00 Diphenhydramine HCl (Benadryl) 25 mg QHS PRN PO ITCHING; Start 09/17/18 at 17:30 Isosorbide Mononitrate (Imdur) 120 mg DAILY PO Last administered on 09/22/18 08:46; Admin Dose 120 MG; Start 09/18/18 at 09:00 Metoprolol Tartrate (Lopressor) 25 mg BID PO Last administered on 09/22/18 08:47; Admin Dose 25 MG; Start 09/17/18 at 21:00 Nitroglycerin (Nitroglycerin (Sl Tab) 0.4 Mg) 1 tab [id number] PRN SL CHEST PAIN; Start 09/17/18 at 17:30 Primidone (Mysoline) 25 mg HS PO Last administered on 09/21/18 20:18; Admin Dose 25 MG; Start 09/17/18 at 21:00 IV Flush (NS 3 ml) 3 ml PER PROTOCOL IV ; Start 09/17/18 at 17:30 Ondansetron HCl (Zofran Inj) 4 mg Q6H PRN IV NAUSEA/VOMITING; Start 09/17/18 at 17:30 Heparin Sodium (Porcine) (Heparin (5000 Units/1ml)) 5,000 unit Q12 SC Last administered on 09/22/18 08:53; Admin Dose 5,000 UNIT; Start 09/17/18 at 21:00 Allopurinol (Zyloprim) 100 mg DAILY PO Last administered on 09/22/18 08:46; Admin Dose 100 MG; Start 09/18/18 at 09:00 Tramadol HCl (Ultram) 50 mg Q12H PRN PO .MOD-SEVERE PAIN Last administered on 09/22/18 05:27; Admin Dose 50 MG; Start 09/17/18 at 18:30 Epoetin Calos-epbx (RETACRIT(esrd)) 10,000 unit MoWeFr@1700 SC Last administered on 09/20/18 18:02; Admin Dose 10,000 UNIT; Start 09/18/18 at 17:00 Cefepime HCl 50 ml @ 100 mls/hr Q24H IVPB Last administered on 09/21/18at 20:17; Admin Dose 100 MLS/HR; Start 09/18/18 at 20:00 Magnesium Hydroxide (Milk Of Mag) 30 ml DAILY PRN PO CONSTIPATION Last administered on 09/21/18at 20:34; Admin Dose 30 ML; Start 09/21/18 at 20:00 Levalbuterol (Xopenex Neb) 0.63 mg Q4H WHILE AWAKE HHN ; Start 09/22/18 at 21:00 FRANDY DAVALOS MD Sep 22, 2018 20:20
[2018-09-22] MEDS: LEVALBUTEROL (NEB) 0.63 MG/3 ML AMP HHN SCH (20:29)
[2018-09-22] MEDS: CEFEPIME 1GM/50 ML IVPB SCH (21:09)
[2018-09-22] MEDS: ATORVASTATIN 20 MG TAB PO SCH (21:09)
[2018-09-22] MEDS: PRIMIDONE 50 MG TAB PO SCH (21:10)
[2018-09-23] VITALS (18 sets, daily range): BP systolic 93–122; BP diastolic 46–57; PULSE 60–85; RESP 19–23
[2018-09-23] MEDS: LEVALBUTEROL (NEB) 0.63 MG/3 ML AMP HHN SCH ×6 (01:00→20:11)
[2018-09-23] MEDS: traMADol 50 MG TAB PO PRN (03:24)
--- NOTE | 2018-09-23 08:41 | CONS ---
Assessment/Plan Assessment/Plan Hospital Course (Demo Recall) 1. End-stage renal disease on maintenance hemodialysis. He has hemodialysis ordered for tomorrow. He dialyzes Sunday. 2. Pulmonary congestion due to possible pneumonia and/or congestive heart failure. He has a moderately sized right pleural effusion. He is now on BiPAP because he was unable to breathe last night. 3. Lethargy and altered mental status . He is less alert today . 4. Cardiomyopathy 5. Anemia of chronic kidney disease. He is on Epogen. Consultation Date/Type/Reason Admit Date/Time Sep 17, 2018 at 13:18 Initial Consult Date Type of Consult Nephrology Requesting Provider: MELLO SAUER MD Date/Time of Note DATE: 09/23/18 TIME: 08:38 24 HR Interval Summary Free Text/Dictation Patient is now on BiPAP. Apparently he was having difficulty breathing last night and he was placed on BiPAP. He is sleeping now and does not respond to verbal stimuli. Subjective hx not possible: pt non-verbal Exam/Review of Systems Exam Vitals Vital Signs Date Temp Pulse Resp B/P (MAP) Pulse Ox O2 O2 Flow FiO2 Time Delivery Rate 09/23/18 65 08:07 09/23/18 97.8 19 122/52 93 07:41 (75) 09/23/18 BIPAP 06:30 09/23/18 100 05:22 09/21/18 15.0 08:00 Intake and Output 09/22/18 09/22/18 09/23/18 1515:00 23:00 07:00 IntakeIntake Total 100 ml 250 ml BalanceBalance 100 ml 250 ml Constitutional: non-verbal Respiratory: clear to auscultation, diminished breath sounds Cardiovascular: regular rate and rhythm Gastrointestinal: soft, non-tender Musculoskeletal: nl extremities to inspection Results Result Diagram: 09/20/18 0635 09/20/18 0635 Results 24hrs Laboratory Tests Test 09/22/18 13:00 09/23/18 07:00 Blood Gas Specimen Source Blood arterial Blood arterial Arterial Blood Date Drawn 09/22/2018 12:50:35 PM 09/23/2018 8:00:34 AM Arterial Blood pH (Temp corrected) 7.435 7.391 Arterial Blood pCO2 (Temp correct) 44.5 43.6 Arterial Blood pO2 (Temp corrected) 64.7 L 64.0 L Arterial Blood HCO3 29.2 H 25.9 Arterial Blood Base Excess 4.5 H 0.7 Arterial Blood Oxygen Saturation 92.5 L 90.3 L Dom Test ACCEPTAB ACCEPTAB Arterial Blood Gas Puncture Site Left Radial Left Radial Arterial Blood Carboxyhemoglobin 0.6 1.0 Arterial Blood Methemoglobin 0.3 0.3 Blood Gas A-a O2 Differential 603.8 H 605.4 H Oxyhemoglobin Percent 91.7 L 89.1 L Blood Gas Temperature 37.0 37.0 Blood Gas Modality HFNC MASK - BIPAP FiO2 100.0 100.0 Blood Gas Notified Whom CW TM Blood Gas Notified Time 09/22/2018 1:09:30 PM 09/23/2018 8:21:19 AM Blood Gas Respiration Rate 14.0 Blood Gas Actual Respiration Rate 19 Blood Gas Pressure Support 7 Blood Gas IPAP/EPAP Ratio 12/5 Medications Medication Current Medications Albumin Human 100 ml @ 100 mls/hr WITH DIALYSIS PRN IV SBP <90 DURING DIALYSIS Last administered on 09/21/18 09:46; Admin Dose 100 MLS/HR; Start 09/17/18 at 17:30 Acetaminophen (Tylenol Tab) 650 mg BID PRN PO MILD PAIN LEVEL 1-3 Last administered on 09/22/18 04:27; Admin Dose 650 MG; Start 09/17/18 at 17:30 Atorvastatin Calcium (Lipitor) 20 mg QHS PO Last administered on 09/22/18 21:09; Admin Dose 20 MG; Start 09/17/18 at 21:00 Clopidogrel Bisulfate (plaVIX) 75 mg DAILY PO Last administered on 09/22/18 08:46; Admin Dose 75 MG; Start 09/18/18 at 09:00 Digoxin (Digoxin) 0.125 mg Q48H PO Last administered on 09/22/18 13:48; Admin Dose 0.125 MG; Start 09/18/18 at 13:00 Diphenhydramine HCl (Benadryl) 25 mg QHS PRN PO ITCHING; Start 09/17/18 at 17:30 Isosorbide Mononitrate (Imdur) 120 mg DAILY PO Last administered on 09/22/18 08:46; Admin Dose 120 MG; Start 09/18/18 at 09:00 Metoprolol Tartrate (Lopressor) 25 mg BID PO Last administered on 09/22/18 21:15; Admin Dose 25 MG; Start 09/17/18 at 21:00 Nitroglycerin (Nitroglycerin (Sl Tab) 0.4 Mg) 1 tab [id number] PRN SL CHEST PAIN; Start 09/17/18 at 17:30 Primidone (Mysoline) 25 mg HS PO Last administered on 09/22/18 21:10; Admin Dose 25 MG; Start 09/17/18 at 21:00 IV Flush (NS 3 ml) 3 ml PER PROTOCOL IV ; Start 09/17/18 at 17:30 Ondansetron HCl (Zofran Inj) 4 mg Q6H PRN IV NAUSEA/VOMITING; Start 09/17/18 at 17:30 Heparin Sodium (Porcine) (Heparin (5000 Units/1ml)) 5,000 unit Q12 SC Last administered on 09/22/18 21:12; Admin Dose 5,000 UNIT; Start 09/17/18 at 21:00 Allopurinol (Zyloprim) 100 mg DAILY PO Last administered on 09/22/18 08:46; Admin Dose 100 MG; Start 09/18/18 at 09:00 Tramadol HCl (Ultram) 50 mg Q12H PRN PO .MOD-SEVERE PAIN Last administered on 09/23/18 03:24; Admin Dose 50 MG; Start 09/17/18 at 18:30 Epoetin Calos-epbx (RETACRIT(esrd)) 10,000 unit MoWeFr@1700 SC Last administered on 09/20/18 18:02; Admin Dose 10,000 UNIT; Start 09/18/18 at 17:00 Cefepime HCl 50 ml @ 100 mls/hr Q24H IVPB Last administered on 09/22/18 21:09; Admin Dose 100 MLS/HR; Start 09/18/18 at 20:00 Magnesium Hydroxide (Milk Of Mag) 30 ml DAILY PRN PO CONSTIPATION Last administered on 09/21/18 20:34; Admin Dose 30 ML; Start 09/21/18 at 20:00 Levalbuterol (Xopenex Neb) 0.63 mg Q4H WHILE AWAKE HHN Last administered on 09/22/18 20:29; Admin Dose 0.63 MG; Start 09/22/18 at 21:00 DEMARCUS CHING MD Sep 23, 2018 08:41
[2018-09-23] MEDS: ALLOPURINOL 100 MG TAB PO SCH (09:53)
[2018-09-23] MEDS: CLOPIDOGREL 75 MG TAB PO SCH (09:53)
[2018-09-23] MEDS: METOPROLOL 25 MG TAB PO SCH ×2 (09:53→20:59)
[2018-09-23] MEDS: ISOSORBIDE MONONITRATE(SR)60 MG TAB PO SCH (09:53)
[2018-09-23] MEDS: HEPARIN 5,000 UNIT/1 ML VIAL SC SCH ×2 (09:58→21:01)
[2018-09-23] MEDS: ACETAMINOPHEN 325 MG TAB PO PRN (13:32)
--- NOTE | 2018-09-23 14:42 | CONS ---
Consult Date/Type/Reason Admit Date/Time Sep 17, 2018 at 13:18 Initial Consult Date 09/18/18 Type of Consult Pulmonary Requesting Provider: MELLO SAUER MD Date/Time of Note DATE: 09/23/18 TIME: 14:39 Subjective Patient stable this morning. No new events. Still short of breath. Objective Vital Signs Date Temp Pulse Resp B/P (MAP) Pulse Ox O2 O2 Flow FiO2 Time Delivery Rate 09/23/18 67 20 92 100 13:47 09/23/18 97.6 108/53 11:42 (71) 09/23/18 BIPAP 06:30 09/21/18 15.0 08:00 Intake and Output 09/22/18 09/22/18 09/23/18 1414:59 22:59 06:59 IntakeIntake Total 100 ml BalanceBalance 100 ml Exam PHYSICAL EXAMINATION: GENERAL: Elderly-appearing gentleman, opens eyes, talks in full and complete sentences. VITAL SIGNS: As above. NECK: Supple. No JVD or lymphadenopathy. CARDIAC: S1, S2. No added sounds or murmurs. CHEST: Diminished air entry with rhonchi, right side greater than the left. ABDOMEN: Soft, nontender. No guarding or rebound. EXTREMITIES: No cyanosis, clubbing. A 2+ edema. NEUROLOGIC: Generalized weakness. Vent Setting Fraction of Inspired Oxygen pe: 100 Results/Medications Result Diagram: 09/20/1835 09/20/1835 Results 24 hrs Laboratory Tests Test 09/23/18 07:00 Blood Gas Specimen Source Blood arterial Arterial Blood Date Drawn 09/23/2018 8:00:34 AM Arterial Blood pH (Temp corrected) 7.391 Arterial Blood pCO2 (Temp correct) 43.6 Arterial Blood pO2 (Temp corrected) 64.0 L Arterial Blood HCO3 25.9 Arterial Blood Base Excess 0.7 Arterial Blood Oxygen Saturation 90.3 L Dom Test ACCEPTAB Arterial Blood Gas Puncture Site Left Radial Arterial Blood Carboxyhemoglobin 1.0 Arterial Blood Methemoglobin 0.3 Blood Gas A-a O2 Differential 605.4 H Oxyhemoglobin Percent 89.1 L Blood Gas Temperature 37.0 Blood Gas Respiration Rate 14.0 Blood Gas Actual Respiration Rate 19 Blood Gas Modality MASK - BIPAP FiO2 100.0 Blood Gas Pressure Support 7 Blood Gas IPAP/EPAP Ratio 05/15 Blood Gas Notified Whom TM Blood Gas Notified Time 09/23/2018 8:21:19 AM Medications Current Medications Albumin Human 100 ml @ 100 mls/hr WITH DIALYSIS PRN IV SBP <90 DURING DIALYSIS Last administered on 09/21/18 09:46; Admin Dose 100 MLS/HR; Start 09/17/18 at 17:30 Acetaminophen (Tylenol Tab) 650 mg BID PRN PO MILD PAIN LEVEL 1-3 Last administered on 09/23/18 13:32; Admin Dose 650 MG; Start 09/17/18 at 17:30 Atorvastatin Calcium (Lipitor) 20 mg QHS PO Last administered on 09/22/18 21:09; Admin Dose 20 MG; Start 09/17/18 at 21:00 Clopidogrel Bisulfate (plaVIX) 75 mg DAILY PO Last administered on 09/23/18 09:53; Admin Dose 75 MG; Start 09/18/18 at 09:00 Digoxin (Digoxin) 0.125 mg Q48H PO Last administered on 09/22/18 13:48; Admin Dose 0.125 MG; Start 09/18/18 at 13:00 Diphenhydramine HCl (Benadryl) 25 mg QHS PRN PO ITCHING; Start 09/17/18 at 17:30 Isosorbide Mononitrate (Imdur) 120 mg DAILY PO Last administered on 09/23/18 09:53; Admin Dose 120 MG; Start 09/18/18 at 09:00 Metoprolol Tartrate (Lopressor) 25 mg BID PO Last administered on 09/23/18 09:53; Admin Dose 25 MG; Start 09/17/18 at 21:00 Nitroglycerin (Nitroglycerin (Sl Tab) 0.4 Mg) 1 tab [id number] PRN SL CHEST PAIN; Start 09/17/18 at 17:30 Primidone (Mysoline) 25 mg HS PO Last administered on 09/22/18 21:10; Admin Dose 25 MG; Start 09/17/18 at 21:00 IV Flush (NS 3 ml) 3 ml PER PROTOCOL IV ; Start 09/17/18 at 17:30 Ondansetron HCl (Zofran Inj) 4 mg Q6H PRN IV NAUSEA/VOMITING; Start 09/17/18 at 17:30 Heparin Sodium (Porcine) (Heparin (5000 Units/1ml)) 5,000 unit Q12 SC Last administered on 09/23/18 09:58; Admin Dose 5,000 UNIT; Start 09/17/18 at 21:00 Allopurinol (Zyloprim) 100 mg DAILY PO Last administered on 09/23/18 09:53; Admin Dose 100 MG; Start 09/18/18 at 09:00 Tramadol HCl (Ultram) 50 mg Q12H PRN PO .MOD-SEVERE PAIN Last administered on 09/23/18 03:24; Admin Dose 50 MG; Start 09/17/18 at 18:30 Epoetin Calos-epbx (RETACRIT(esrd)) 10,000 unit MoWeFr@1700 SC Last administered on 09/20/18 18:02; Admin Dose 10,000 UNIT; Start 09/18/18 at 17:00 Cefepime HCl 50 ml @ 100 mls/hr Q24H IVPB Last administered on 09/22/18 21:09; Admin Dose 100 MLS/HR; Start 09/18/18 at 20:00 Magnesium Hydroxide (Milk Of Mag) 30 ml DAILY PRN PO CONSTIPATION Last administered on 09/21/18 20:34; Admin Dose 30 ML; Start 09/21/18 at 20:00 Levalbuterol (Xopenex Neb) 0.63 mg Q4H WHILE AWAKE HHN Last administered on 09/23/18 13:44; Admin Dose 0.63 MG; Start 09/22/18 at 21:00 Assessment/Plan Hospital Course (Demo Recall) Until tomorrow IMPRESSION AND PLAN: Persistent hypoxemic respiratory failure, likely secondary to combination of volume overload, alveolar hypoventilation with atelectasis and ongoing congestive cardiac failure. Moderate right pleural effusion on ultrasound. Plan 1. Continuous high flow O2. Decrease O2 2. Aspiration precautions. 3. Hemodialysis with more volume removal. 4. Thoracentesis right lung. 5. Continue with DNR status. HUMA NICHOLAS MD, [facility] Sep 23, 2018 14:42
[2018-09-23] MEDS: EPOETIN ALFA-EPBX (ESRD) 10,000 UNIT/ML VIAL SC SCH (17:00)
--- NOTE | 2018-09-23 17:25 | PN ---
Date/Time of Note Date/Time of Note DATE: 09/23/18 TIME: 17:20 Assessment/Plan VTE Prophylaxis Risk score (from Nsg)>0 risk: 8 SCD applied (from Ns): Yes Pharmacological prophylaxis: heparin Lines/Catheters IV Catheter Type (from Nrsg): Saline Lock Urinary Cath still in place: No Assessment/Plan Result Diagram: 09/20/18 0635 09/20/18 0635 Results 24hrs Laboratory Tests Test 09/23/18 07:00 Blood Gas Specimen Source Blood arterial Arterial Blood Date Drawn 09/23/2018 8:00:34 AM Arterial Blood pH (Temp corrected) 7.391 Arterial Blood pCO2 (Temp correct) 43.6 Arterial Blood pO2 (Temp corrected) 64.0 L Arterial Blood HCO3 25.9 Arterial Blood Base Excess 0.7 Arterial Blood Oxygen Saturation 90.3 L Dom Test ACCEPTAB Arterial Blood Gas Puncture Site Left Radial Arterial Blood Carboxyhemoglobin 1.0 Arterial Blood Methemoglobin 0.3 Blood Gas A-a O2 Differential 605.4 H Oxyhemoglobin Percent 89.1 L Blood Gas Temperature 37.0 Blood Gas Respiration Rate 14.0 Blood Gas Actual Respiration Rate 19 Blood Gas Modality MASK - BIPAP FiO2 100.0 Blood Gas Pressure Support 7 Blood Gas IPAP/EPAP Ratio 12/5 Blood Gas Notified Whom TM Blood Gas Notified Time 09/23/2018 8:21:19 AM Subjective 24 Hr Interval Summary Free Text/Dictation sdsleeping a lot. remains on bipap with good sats, but not able to wean off at this time. remains weak and relatively non mibile.xray with pleural effusion and poss infilt vs atalectasis. therapeutic options limited as noted rouses but may not understand me well this afternoon.no cough no edema, bs clear lying flat, abd soft labs noted, about the same imp resp failure from combination cardiac and volume overload, esrd, severe djd knees, back, non ambulatory status, on bipap Musculoskeletal: back pain (hypoxia) Exam/Review of Systems Exam Vitals Vital Signs Date Temp Pulse Resp B/P (MAP) Pulse Ox O2 O2 Flow FiO2 Time Delivery Rate 09/23/18 61 94 100 16:55 09/23/18 19 16:43 09/23/18 97.9 93/46 (62) 16:07 09/23/18 BIPAP 06:30 09/21/18 15.0 08:00 Intake and Output 09/22/18 09/22/18 09/23/18 1515:00 23:00 07:00 IntakeIntake Total 100 ml 250 ml BalanceBalance 100 ml 250 ml Results Results 24hrs Laboratory Tests Test 09/23/18 07:00 Blood Gas Specimen Source Blood arterial Arterial Blood Date Drawn 09/23/2018 8:00:34 AM Arterial Blood pH (Temp corrected) 7.391 Arterial Blood pCO2 (Temp correct) 43.6 Arterial Blood pO2 (Temp corrected) 64.0 L Arterial Blood HCO3 25.9 Arterial Blood Base Excess 0.7 Arterial Blood Oxygen Saturation 90.3 L Dom Test ACCEPTAB Arterial Blood Gas Puncture Site Left Radial Arterial Blood Carboxyhemoglobin 1.0 Arterial Blood Methemoglobin 0.3 Blood Gas A-a O2 Differential 605.4 H Oxyhemoglobin Percent 89.1 L Blood Gas Temperature 37.0 Blood Gas Respiration Rate 14.0 Blood Gas Actual Respiration Rate 19 Blood Gas Modality MASK - BIPAP FiO2 100.0 Blood Gas Pressure Support 7 Blood Gas IPAP/EPAP Ratio 05/15 Blood Gas Notified Whom TM Blood Gas Notified Time 09/23/2018 8:21:19 AM Medications Medication Current Medications Albumin Human 100 ml @ 100 mls/hr WITH DIALYSIS PRN IV SBP <90 DURING DIALYSIS Last administered on 09/21/18 09:46; Admin Dose 100 MLS/HR; Start 09/17/18 at 17:30 Acetaminophen (Tylenol Tab) 650 mg BID PRN PO MILD PAIN LEVEL 1-3 Last administered on 09/23/18at 13:32; Admin Dose 650 MG; Start 09/17/18 at 17:30 Atorvastatin Calcium (Lipitor) 20 mg QHS PO Last administered on 09/22/18 21:09; Admin Dose 20 MG; Start 09/17/18 at 21:00 Clopidogrel Bisulfate (plaVIX) 75 mg DAILY PO Last administered on 09/23/18 09:53; Admin Dose 75 MG; Start 09/18/18 at 09:00 Digoxin (Digoxin) 0.125 mg Q48H PO Last administered on 09/22/18at 13:48; Admin Dose 0.125 MG; Start 09/18/18 at 13:00 Diphenhydramine HCl (Benadryl) 25 mg QHS PRN PO ITCHING; Start 09/17/18 at 17:30 Isosorbide Mononitrate (Imdur) 120 mg DAILY PO Last administered on 09/23/18 09:53; Admin Dose 120 MG; Start 09/18/18 at 09:00 Metoprolol Tartrate (Lopressor) 25 mg BID PO Last administered on 09/23/18 09:53; Admin Dose 25 MG; Start 09/17/18 at 21:00 Nitroglycerin (Nitroglycerin (Sl Tab) 0.4 Mg) 1 tab [id number] PRN SL CHEST PAIN; Start 09/17/18 at 17:30 Primidone (Mysoline) 25 mg HS PO Last administered on 09/22/18 21:10; Admin Dose 25 MG; Start 09/17/18 at 21:00 IV Flush (NS 3 ml) 3 ml PER PROTOCOL IV ; Start 09/17/18 at 17:30 Ondansetron HCl (Zofran Inj) 4 mg Q6H PRN IV NAUSEA/VOMITING; Start 09/17/18 at 17:30 Heparin Sodium (Porcine) (Heparin (5000 Units/1ml)) 5,000 unit Q12 SC Last administered on 09/23/18 09:58; Admin Dose 5,000 UNIT; Start 09/17/18 at 21:00 Allopurinol (Zyloprim) 100 mg DAILY PO Last administered on 09/23/18 09:53; Admin Dose 100 MG; Start 09/18/18 at 09:00 Tramadol HCl (Ultram) 50 mg Q12H PRN PO .MOD-SEVERE PAIN Last administered on 09/23/18 03:24; Admin Dose 50 MG; Start 09/17/18 at 18:30 Epoetin Calos-epbx (RETACRIT(esrd)) 10,000 unit MoWeFr@1700 SC Last administered on 09/20/18 18:02; Admin Dose 10,000 UNIT; Start 09/18/18 at 17:00 Cefepime HCl 50 ml @ 100 mls/hr Q24H IVPB Last administered on 09/22/18 21:09; Admin Dose 100 MLS/HR; Start 09/18/18 at 20:00 Magnesium Hydroxide (Milk Of Mag) 30 ml DAILY PRN PO CONSTIPATION Last administ ered on 4/13/19at 20:34; Admin Dose 30 ML; Start 09/21/18 at 20:00 Levalbuterol (Xopenex Neb) 0.63 mg Q4H WHILE AWAKE HHN Last administered on 09/23/18at 16:43; Admin Dose 0.63 MG; Start 09/22/18 at 21:00 MELLO SAUER MD Sep 23, 2018 17:25
[2018-09-23] MEDS: CEFEPIME 1GM/50 ML IVPB SCH (20:55)
[2018-09-23] MEDS: ATORVASTATIN 20 MG TAB PO SCH (20:59)
[2018-09-23] MEDS: PRIMIDONE 50 MG TAB PO SCH (20:59)
[2018-09-24] VITALS (13 sets, daily range): BP systolic 113–120; BP diastolic 53–57; PULSE 0–81; RESP 17–23
[2018-09-24] MEDS: LEVALBUTEROL (NEB) 0.63 MG/3 ML AMP HHN SCH ×3 (01:53→09:00)
--- NOTE | 2018-09-24 08:48 | CONS ---
Assessment/Plan Assessment/Plan Hospital Course (Demo Recall) 1. End-stage renal disease on maintenance hemodialysis. He has hemodialysis ordered for today; however, he is now saying that he does not want hemodialysis treatment and wants to stop.. He says that he is ready to and wants to be made comfortable. I spoke to his Rach by telephone and she is on her way into the hospital. 2. Pulmonary failure with pulmonary congestion due to possible pneumonia and/or congestive heart failure. He has a moderately sized right pleural effusion. He is now on BiPAP because he was unable to breathe last night. 3. Lethargy and altered mental status . He is more alert today . 4. Cardiomyopathy 5. Anemia of chronic kidney disease. He is on Epogen. Consultation Date/Type/Reason Admit Date/Time Sep 17, 2018 at 13:18 Initial Consult Date Type of Consult Nephrology Requesting Provider: MELLO SAUER MD Date/Time of Note DATE: 09/24/18 TIME: 08:40 24 HR Interval Summary Free Text/Dictation Jared is awake and alert this morning . he has a congested cough . He was on BiPAP earlier but then refused to have a placed back on and was on oxygen mask. He says that he wants to and that he does not want further aggressive treatment and wants to stop dialysis. He is due for dialysis today. I videotaped a message from him to his . I spoke to his klaus and she is on her way in to see him. Exam/Review of Systems Exam Vitals Vital Signs Date Temp Pulse Resp B/P (MAP) Pulse Ox O2 O2 Flow FiO2 Time Delivery Rate 09/24/18 72 08:09 09/24/18 97.8 23 113/56 91 07:20 (75) 09/24/18 100 05:05 09/23/18 BIPAP 06:30 09/21/18 15.0 08:00 Intake and Output 09/23/18 09/23/18 09/24/18 1515:00 23:00 07:00 IntakeIntake Total 300 ml 400 ml BalanceBalance 300 ml 400 ml Constitutional: alert, oriented, frail Respiratory: congested cough, wheezing Cardiovascular: regular rate and rhythm Gastrointestinal: soft Musculoskeletal: nl extremities to inspection Results Result Diagram: 09/20/18 0635 09/20/18 0635 Medications Medication Current Medications Albumin Human 100 ml @ 100 mls/hr WITH DIALYSIS PRN IV SBP <90 DURING DIALYSIS Last administered on 09/21/18 09:46; Admin Dose 100 MLS/HR; Start 09/17/18 at 17:30 Acetaminophen (Tylenol Tab) 650 mg BID PRN PO MILD PAIN LEVEL 1-3 Last administered on 09/23/18 13:32; Admin Dose 650 MG; Start 09/17/18 at 17:30 Atorvastatin Calcium (Lipitor) 20 mg QHS PO Last administered on 09/23/18 20:59; Admin Dose 20 MG; Start 09/17/18 at 21:00 Clopidogrel Bisulfate (plaVIX) 75 mg DAILY PO Last administered on 09/23/18 09:53; Admin Dose 75 MG; Start 09/18/18 at 09:00 Digoxin (Digoxin) 0.125 mg Q48H PO Last administered on 09/22/18 13:48; Admin Dose 0.125 MG; Start 09/18/18 at 13:00 Diphenhydramine HCl (Benadryl) 25 mg QHS PRN PO ITCHING; Start 09/17/18 at 17:30 Isosorbide Mononitrate (Imdur) 120 mg DAILY PO Last administered on 09/23/18 09:53; Admin Dose 120 MG; Start 09/18/18 at 09:00 Metoprolol Tartrate (Lopressor) 25 mg BID PO Last administered on 09/23/18 20:59; Admin Dose 25 MG; Start 09/17/18 at 21:00 Nitroglycerin (Nitroglycerin (Sl Tab) 0.4 Mg) 1 tab [id number] PRN SL CHEST PAIN; Start 09/17/18 at 17:30 Primidone (Mysoline) 25 mg HS PO Last administered on 09/23/18 20:59; Admin Dose 25 MG; Start 09/17/18 at 21:00 IV Flush (NS 3 ml) 3 ml PER PROTOCOL IV ; Start 09/17/18 at 17:30 Ondansetron HCl (Zofran Inj) 4 mg Q6H PRN IV NAUSEA/VOMITING; Start 09/17/18 at 17:30 Heparin Sodium (Porcine) (Heparin (5000 Units/1ml)) 5,000 unit Q12 SC Last administered on 09/23/18 21:01; Admin Dose 5,000 UNIT; Start 09/17/18 at 21:00 Allopurinol (Zyloprim) 100 mg DAILY PO Last administered on 09/23/18 09:53; Admin Dose 100 MG; Start 09/18/18 at 09:00 Tramadol HCl (Ultram) 50 mg Q12H PRN PO .MOD-SEVERE PAIN Last administered on 09/23/18 03:24; Admin Dose 50 MG; Start 09/17/18 at 18:30 Epoetin Calos-epbx (RETACRIT(esrd)) 10,000 unit MoWeFr@1700 SC Last administered on 09/23/18 17:00; Admin Dose 10,000 UNIT; Start 09/18/18 at 17:00 Cefepime HCl 50 ml @ 100 mls/hr Q24H IVPB Last administered on 09/23/18 20:55; Admin Dose 100 MLS/HR; Start 09/18/18 at 20:00 Magnesium Hydroxide (Milk Of Mag) 30 ml DAILY PRN PO CONSTIPATION Last administered on 09/21/18 20:34; Admin Dose 30 ML; Start 09/21/18 at 20:00 Levalbuterol (Xopenex Neb) 0.63 mg Q4H WHILE AWAKE HHN Last administered on 09/24/18 01:53; Admin Dose 0.63 MG; Start 09/22/18 at 21:00 DEMARCUS CHING MD Sep 24, 2018 08:48
[2018-09-24] MEDS: ALLOPURINOL 100 MG TAB PO SCH (09:00)
[2018-09-24] MEDS: METOPROLOL 25 MG TAB PO SCH (09:00)
[2018-09-24] MEDS: HEPARIN 5,000 UNIT/1 ML VIAL SC SCH (09:00)
[2018-09-24] MEDS: ISOSORBIDE MONONITRATE(SR)60 MG TAB PO SCH (09:00)
[2018-09-24] MEDS: CLOPIDOGREL 75 MG TAB PO SCH (09:00)
[2018-09-24] MEDS ORDERED: morphine 2 MG INJ IV STA (11:34)
--- NOTE | 2018-09-24 11:44 | PN ---
Date/Time of Note Date/Time of Note DATE: 09/24/18 TIME: 11:40 Assessment/Plan VTE Prophylaxis Risk score (from Ns)>0 risk: 8 SCD applied (from Ns): Yes Pharmacological prophylaxis: NA/contraindicated Pharm contraindication: other (end od life care) Lines/Catheters IV Catheter Type (from Nrs): Saline Lock Urinary Cath still in place: No Assessment/Plan Result Diagram: 09/20/1835 09/20/18 0635 Subjective 24 Hr Interval Summary Free Text/Dictation dr small's help apprfeciated. mr ware wishes no further acrtive rx and says he is ready jayant . famioly at bedside and all are agreeable, as am I. further rx seems futile at this point. morphine ordeered, some meds stopped. comfort measures only, bipap can come off when able. a fitting ending for a life well lived. Respiratory: shortness of breath Musculoskeletal: bone/joint pain Exam/Review of Systems Exam Vitals Vital Signs Date Temp Pulse Resp B/P (MAP) Pulse Ox O2 O2 Flow FiO2 Time Delivery Rate 09/24/18 72 08:09 09/24/18 97.8 23 113/56 91 07:20 (75) 09/24/18 100 05:05 09/23/18 BIPAP 06:30 09/21/18 15.0 08:00 Intake and Output 09/23/18 09/23/18 09/24/18 1515:00 23:00 07:00 IntakeIntake Total 300 ml 400 ml BalanceBalance 300 ml 400 ml Medications Medication Current Medications Albumin Human 100 ml @ 100 mls/hr WITH DIALYSIS PRN IV SBP <90 DURING DIALYSIS Last administered on 09/21/18at 09:46; Admin Dose 100 MLS/HR; Start 09/17/18 at 17:30 Acetaminophen (Tylenol Tab) 650 mg BID PRN PO MILD PAIN LEVEL 1-3 Last administered on 09/23/18at 13:32; Admin Dose 650 MG; Start 09/17/18 at 17:30 Atorvastatin Calcium (Lipitor) 20 mg QHS PO Last administered on 09/23/18at 20:59; Admin Dose 20 MG; Start 09/17/18 at 21:00 Clopidogrel Bisulfate (plaVIX) 75 mg DAILY PO Last administered on 09/23/18at 09:53; Admin Dose 75 MG; Start 09/18/18 at 09:00 Digoxin (Digoxin) 0.125 mg Q48H PO Last administered on 09/22/18 13:48; Admin Dose 0.125 MG; Start 09/18/18 at 13:00 Diphenhydramine HCl (Benadryl) 25 mg QHS PRN PO ITCHING; Start 09/17/18 at 17:30 Isosorbide Mononitrate (Imdur) 120 mg DAILY PO Last administered on 09/23/18 09:53; Admin Dose 120 MG; Start 09/18/18 at 09:00 Metoprolol Tartrate (Lopressor) 25 mg BID PO Last administered on 09/23/18 20:59; Admin Dose 25 MG; Start 09/17/18 at 21:00 Nitroglycerin (Nitroglycerin (Sl Tab) 0.4 Mg) 1 tab [id number] PRN SL CHEST PAIN; Start 09/17/18 at 17:30 Primidone (Mysoline) 25 mg HS PO Last administered on 09/23/18 20:59; Admin Dose 25 MG; Start 09/17/18 at 21:00 IV Flush (NS 3 ml) 3 ml PER PROTOCOL IV ; Start 09/17/18 at 17:30 Ondansetron HCl (Zofran Inj) 4 mg Q6H PRN IV NAUSEA/VOMITING; Start 09/17/18 at 17:30 Heparin Sodium (Porcine) (Heparin (5000 Units/1ml)) 5,000 unit Q12 SC Last administered on 09/23/18 21:01; Admin Dose 5,000 UNIT; Start 09/17/18 at 21:00 Allopurinol (Zyloprim) 100 mg DAILY PO Last administered on 09/23/18 09:53; Admin Dose 100 MG; Start 09/18/18 at 09:00 Tramadol HCl (Ultram) 50 mg Q12H PRN PO .MOD-SEVERE PAIN Last administered on 09/23/18 03:24; Admin Dose 50 MG; Start 09/17/18 at 18:30 Epoetin Calos-epbx (RETACRIT(esrd)) 10,000 unit MoWeFr@1700 SC Last administered on 09/23/18 17:00; Admin Dose 10,000 UNIT; Start 09/18/18 at 17:00 Cefepime HCl 50 ml @ 100 mls/hr Q24H IVPB Last administered on 09/23/18at 20:55; Admin Dose 100 MLS/HR; Start 09/18/18 at 20:00 Magnesium Hydroxide (Milk Of Mag) 30 ml DAILY PRN PO CONSTIPATION Last admin istered on 09/21/18at 20:34; Admin Dose 30 ML; Start 09/21/18 at 20:00 Levalbuterol (Xopenex Neb) 0.63 mg Q4H WHILE AWAKE HHN Last administered on 09/24/18at 01:53; Admin Dose 0.63 MG; Start 09/22/18 at 21:00 Morphine Sulfate (morphine) 2 mg ONCE STAT IV ; Start 09/24/18 at 11:34; Stop 09/24/18 at 11:35; Status UNV Morphine Sulfate/ Sodium Chloride 100 ml @ 1 mls/hr TITRATE IV ; Start 09/24/18 at 12:00; Status UNV MELLO SAUER MD Sep 24, 2018 11:43
--- NOTE | 2018-09-24 12:06 | CONS ---
Consult Date/Type/Reason Admit Date/Time Sep 17, 2018 at 13:18 Initial Consult Date 09/18/18 Type of Consult Pulmonary Requesting Provider: MELLO SAUER MD Date/Time of Note DATE: 09/24/18 TIME: 12:02 Subjective Patient comfortable this morning on bilevel ventilation wishing to transition to hospice. Objective Vital Signs Date Temp Pulse Resp B/P (MAP) Pulse Ox O2 O2 Flow FiO2 Time Delivery Rate 09/24/18 72 08:09 09/24/18 97.8 23 113/56 91 07:20 (75) 09/24/18 100 05:05 09/23/18 BIPAP 06:30 09/21/18 15.0 08:00 Intake and Output 09/23/18 09/23/18 09/24/18 1515:00 23:00 07:00 IntakeIntake Total 300 ml 400 ml BalanceBalance 300 ml 400 ml Exam PHYSICAL EXAMINATION: GENERAL: Elderly-appearing gentleman, opens eyes, talks in full and complete sentences. VITAL SIGNS: As above. NECK: Supple. No JVD or lymphadenopathy. CARDIAC: S1, S2. No added sounds or murmurs. CHEST: Diminished air entry with rhonchi, right side greater than the left. ABDOMEN: Soft, nontender. No guarding or rebound. EXTREMITIES: No cyanosis, clubbing. A 2+ edema. NEUROLOGIC: Generalized weakness. Vent Setting Fraction of Inspired Oxygen pe: 100 Results/Medications Result Diagram: 09/20/18 0635 09/20/18 0635 Medications Current Medications Albumin Human 100 ml @ 100 mls/hr WITH DIALYSIS PRN IV SBP <90 DURING DIALYSIS Last administered on 09/21/18at 09:46; Admin Dose 100 MLS/HR; Start 09/17/18 at 17:30 Acetaminophen (Tylenol Tab) 650 mg BID PRN PO MILD PAIN LEVEL 1-3 Last administered on 09/23/18at 13:32; Admin Dose 650 MG; Start 09/17/18 at 17:30 Diphenhydramine HCl (Benadryl) 25 mg QHS PRN PO ITCHING; Start 09/17/18 at 17:30 Nitroglycerin (Nitroglycerin (Sl Tab) 0.4 Mg) 1 tab [id number] PRN SL CHEST PAIN; Start 09/17/18 at 17:30 Primidone (Mysoline) 25 mg HS PO Last administered on 09/23/18 20:59; Admin Dose 25 MG; Start 09/17/18 at 21:00 IV Flush (NS 3 ml) 3 ml PER PROTOCOL IV ; Start 09/17/18 at 17:30 Ondansetron HCl (Zofran Inj) 4 mg Q6H PRN IV NAUSEA/VOMITING; Start 09/17/18 at 17:30 Allopurinol (Zyloprim) 100 mg DAILY PO Last administered on 09/23/18 09:53; Admin Dose 100 MG; Start 09/18/18 at 09:00 Tramadol HCl (Ultram) 50 mg Q12H PRN PO .MOD-SEVERE PAIN Last administered on 09/23/18 03:24; Admin Dose 50 MG; Start 09/17/18 at 18:30 Epoetin Calos-epbx (RETACRIT(esrd)) 10,000 unit MoWeFr@1700 SC Last administered on 09/23/18 17:00; Admin Dose 10,000 UNIT; Start 09/18/18 at 17:00 Magnesium Hydroxide (Milk Of Mag) 30 ml DAILY PRN PO CONSTIPATION Last administered on 09/21/18 20:34; Admin Dose 30 ML; Start 09/21/18 at 20:00 Levalbuterol (Xopenex Neb) 0.63 mg Q4H WHILE AWAKE HHN Last administered on 09/24/18 01:53; Admin Dose 0.63 MG; Start 09/22/18 at 21:00 Morphine Sulfate/ Sodium Chloride 100 ml @ 1 mls/hr TITRATE IV ; Start 09/24/18 at 12:00 Assessment/Plan Hospital Course (Demo Recall) Patient being transferred to inpatient hospice. HU[facility] NICHOLAS MD, [facility] Sep 24, 2018 12:06
[2018-09-24] MEDS: morphine (DRIP) 100 MG/100 ML 100 ML IV SCH ×4 (12:17→14:17)
== END 2018-09-24 14:52 | disposition expired | DRG 193 ==
LOC: E/R 09:08 → TEL 13:18
PROVIDERS: ADMIT Internal Medicine; ATTEND Internal Medicine
PROC: 5A1D70Z Performance of Urinary Filtration, Intermittent, Less than 6 Hours Per Day (ICD-10-PCS; 2018-09-17)
PROC: 5A09457 Assistance with Respiratory Ventilation, 24-96 Consecutive Hours, Continuous Positive Airway Pressure (ICD-10-PCS; principal; 2018-09-19)
DX: J18.1 Lobar pneumonia, unspecified organism (principal); N18.6 End stage renal disease; I50.23 Acute on chronic systolic (congestive) heart failure; G93.41 Metabolic encephalopathy; J96.01 Acute respiratory failure with hypoxia; I13.2 Hypertensive heart and chronic kidney disease with heart failure and with stage 5 chronic kidney disease, or end stage renal disease; F05 Delirium due to known physiological condition; D63.1 Anemia in chronic kidney disease; E78.5 Hyperlipidemia, unspecified; E79.0 Hyperuricemia without signs of inflammatory arthritis and tophaceous disease; G25.0 Essential tremor; H11.31 Conjunctival hemorrhage, right eye; I25.10 Atherosclerotic heart disease of native coronary artery without angina pectoris; I25.5 Ischemic cardiomyopathy; I44.0 Atrioventricular block, first degree; I48.0 Paroxysmal atrial fibrillation; I73.9 Peripheral vascular disease, unspecified; J45.909 Unspecified asthma, uncomplicated; M48.00 Spinal stenosis, site unspecified; M19.90 Unspecified osteoarthritis, unspecified site; M17.0 Bilateral primary osteoarthritis of knee; R54 Age-related physical debility; Z51.5 Encounter for palliative care; I25.2 Old myocardial infarction; Z95.5 Presence of coronary angioplasty implant and graft; Z99.2 Dependence on renal dialysis; Z87.891 Personal history of nicotine dependence; Z95.1 Presence of aortocoronary bypass graft; Z86.73 Personal history of transient ischemic attack (TIA), and cerebral infarction without residual deficits; Z85.828 Personal history of other malignant neoplasm of skin; Z85.46 Personal history of malignant neoplasm of prostate; Z79.02 Long term (current) use of antithrombotics/antiplatelets
CPT/HCPCS: 36415; 36600; 71045; 76604; 80048; 80053; 80162; 80202; 82803; 82962; 83036; 83605; 83735; 84145; 84484; 85025; 85610; 85730; 87081; 87400; 90935; 92610; 93005; 94640; 94644; 94660; 96374; 96375; 97110; 97163; 97530; G0378; J0692; J1644; J2060; J2270; J3370; P9047; Q5105